=== PATIENT | male | born 1970 | race African-American/Black ===

== ENCOUNTER 2020-08-13 20:34 | Emergency (ER) | payer BC ==
--- OUTSIDE RECORDS SUMMARY | 2020-08-13 20:37 | XMS REPORT | Continuity of Care Document ---
:1970 Author Organization [facility] t Address [address] [place] [address] Care Team Providers Name Role Phone Therapy, Covid Infusion Attending Clinician Unavailable Doctor Unassigned, Name Attending Clinician Unavailable Problems This patient has no known problems. Allergies, Adverse Reactions, Alerts This patient has no known allergies or adverse reactions. Medications This patient has no known medications. Procedures This patient has no known procedures. Encounters Start End Encounter Admission Attending Care Care Encounter Source Date/Time Date/Time Type Type Clinicians Facility Department ID 2020-08-07 2020-08-07 Outpatient [facility] [id number] [facility] 00:00:00 00:00:00 [facility]akesh [facility]ph[facility] 2020-03-15 2020-03-15 Nurse Therapy, [facility] [id number] 09:44:59 18:56:55 Visit [facility] Covid SPECIALTY [id number] Infusion CARE [id number] CENTER AT [id number] [place] [address] [place] [address] 2020-03-15 2020-03-15 Orders Doctor DARRIAN [id number] 00:00:00 00:00:00 Only Unassigned, JUAN JOSE [id number] [place] [facility] [id number] Results This patient has no known results.
[2020-08-13 21:20] LABS: Urine Blood 2+ (Negative); Urine Glucose 1+ (Negative); Urine Protein 1+ (Negative); Urine Specific Gravity 1.015 (1.005-1.030)
[2020-08-13 21:48] LABS: Urine Bacteria >50 /HPF (NONE SEEN); Urine RBC <5 /HPF (NONE SEEN)
[2020-08-13 22:14] LABS: Absolute Lymphocytes (CBC) 3.4 K/uL (0.7-4.9); Basophils % 0.2 % (0-1.3); Hematocrit 40.2 % (39.6-49.0); Lymphocytes % 32.2 % (15.3-44.8); MPV 9.7 fL (7.6-11.3); RBC Red Blood Cell Count 4.62 M/uL (4.33-5.43)
[2020-08-13 22:18] LABS: Protime INR 1.05
[2020-08-13 22:26] LABS: ALT/SGPT 60 U/L (12-78); AST/SGOT 25 U/L (15-37); Alkaline Phosphatase 73 U/L (45-117); BUN Blood Urea Nitrogen 16 mg/dL (7-18); Bicarbonate 24 mmol/L (21-32); Bilirubin Direct 0.2 mg/dL (0-0.2); Bilirubin Total 0.7 mg/dL (0.2-1.0); Glucose Level 400 mg/dL (74-106); Potassium 3.5 mmol/L (3.5-5.1); Protein, Total 8.5 g/dL (6.4-8.2); Sodium Level 132 mmol/L (136-145)
[2020-08-13] MEDS ORDERED: ONDANSETRON 4 MG/2 ML VIAL ONE (22:33)
[2020-08-13] MEDS ORDERED: MORPHINE 4 MG/ML SYR ONE (22:33)
--- NOTE | 2020-08-14 00:37 | EDPHYS ---
Physician Documentation [facility] Name: Dean Rosenthal Age: 50 yrs Sex: Male : 1970 Arrival Date: 08/13/2020 Time: 20:36 Bed 20 Private MD: ED Physician Jeramy Delaney HPI: 08/13 21:42 This 50 yrs old Black Male presents to ER via Ambulatory with complaints of Scrotum pm1 pain, Boil. 21:42 The patient presents with scrotal pain, of the right side. Onset: The symptoms/episode pm1 began/occurred Patient reports boil present to groin area for the past two weeks, today reports scrotal pain and swelling. Modifying factors: The symptoms are alleviated by nothing, the symptoms are aggravated by pressure. Associated signs and symptoms: Pertinent positives: dysuria, Pertinent negatives: abdominal pain, fever. Severity of symptoms: in the emergency department the symptoms are actually worse. Patient was seen by his PCP 1 week ago for the same complaint and was prescribed clindamycin. Patient reports boil present to right groin area had some discharge today. Historical: - Allergies: 20:52 No Known Allergies; ad5 - PMHx: 20:52 Diabetes - NIDDM; High Cholesterol; GERD; Arthritis; Hypertension; ad5 - Immunization history:: Adult Immunizations up to date. - Social history:: Smoking status: unknown. ROS: 21:42 Constitutional: Negative for fever, chills, and weight loss, Cardiovascular: Negative pm1 for chest pain, palpitations, and edema, Respiratory: Negative for shortness of breath, cough, wheezing, and pleuritic chest pain, Abdomen/GI: Negative for abdominal pain, nausea, vomiting, diarrhea, and constipation. 21:42 MS/Extremity: Negative for injury and deformity. 21:42 : Positive for urinary symptoms, right scrotal pain. 21:42 Skin: Positive for abscess, of the groin. 21:42 All other systems are negative. Exam: 21:49 Constitutional: This is a well developed, well nourished patient who is awake, alert, pm1 and in no acute distress. Head/Face: Normocephalic, atraumatic. 21:49 Back: No spinal tenderness. No costovertebral tenderness. Full range of motion. 21:49 Eyes: Exam is negative for acute changes, Extraocular movements: intact throughout, Conjunctiva: no acute changes, no injection. 21:49 ENT: Mouth: Lips: normal, Oral mucosa: normal, pink and intact, moist. 21:49 Cardiovascular: Rate: normal, Rhythm: regular, Pulses: no pulse deficits are appreciated, Edema: is not appreciated. 21:49 Respiratory: Exam negative for acute changes, respiratory distress, shortness of breath. 21:49 Abdomen/GI: Inspection: obese Palpation: abdomen is soft and non-tender, in all quadrants. 21:49 : Male external genitalia: swelling, scrotal, that is mild, right side, tenderness, of the scrotum right side is noted. 21:49 Skin: Appearance: normal except for affected area, cellulitis, on the right perineal area. Small 1 cm ruptured boil without any fluctuance or drainage present. Tenderness with palpation along right perineal area. 21:49 Neuro: Exam negative for acute changes, Orientation: is normal, Mentation: is normal, Motor: is normal, moves all fours, Sensation: is normal, no obvious gross deficits. Vital Signs: 20:48 BP 115 / 66; Pulse 103; Resp 20 S; Temp 98.4; Pulse Ox 98% on R/A; Weight 124.74 kg; ad5 Height 5 ft. 11 in. (180.34 cm); 22:47 BP 120 / 70; Pulse 98; Resp 18; Pulse Ox 98% on R/A; ea 08/14 00:00 BP 127 / 67; Pulse 78; Resp 18; Pulse Ox 98% ; ea 01:00 BP 121 / 67; Pulse 82; Resp 18; Pulse Ox 99% ; ea 02:07 BP 112 / 61; Pulse 90; Resp 18; Pulse Ox 98% ; ea 08/13 20:48 Body Mass Index 38.35 (124.74 kg, 180.34 cm) ad5 MDM: 08/13 21:42 Patient medically screened. pm1 08/14 00:47 Data reviewed: vital signs. Data interpreted: Pulse oximetry: on room air is 98 %. pm1 Interpretation: normal. 01:33 Physician consultation: MD Baron regarding regarding transfer, patient's condition, pm1 and will see patient. 01:45 Physician consultation: MD Hansen regarding consult, patient's condition, and will see pm1 patient. 02:26 ED course: No clotrimazole topical available to treat suspected balanitis. pm1 08/13 21:19 Order name: Urine Culture 5 08/13 21:19 Order name: Urine Microscopic Only; Complete Time: 23:45 rr5 08/13 21:20 Order name: Urine Dipstick-Ancillary; Complete Time: 21:43 EDMS 08/13 21:45 Order name: Basic Metabolic Panel pm1 08/13 21:45 Order name: Blood Culture Adult (2) pm1 08/13 21:45 Order name: CBC with Diff pm1 08/13 21:45 Order name: Lactate; Complete Time: 23:45 pm1 08/13 21:45 Order name: LFT's; Complete Time: 23:45 pm1 08/13 21:45 Order name: Procalcitonin; Complete Time: 23:45 pm1 08/13 21:45 Order name: Protime (+inr); Complete Time: 23:45 pm1 08/13 21:45 Order name: Ptt, Activated; Complete Time: 23:45 pm1 08/13 21:46 Order name: Basic Metabolic Panel; Complete Time: 23:45 EDMS 08/13 21:46 Order name: Blood Culture EDMS 08/13 21:46 Order name: CBC with Automated Diff; Complete Time: 23:45 EDMS 08/13 20:59 Order name: Urine Dipstick-Ancillary (obtain specimen); Complete Time: 21:19 [facility] 08/13 21:45 Order name: CT Abd/Pelvis - IV Contrast Only pm1 08/13 21:45 Order name: Labs collected and sent; Complete Time: 22:01 pm1 08/13 21:46 Order name: US Scrotum Testicles pm1 08/14 02:03 Order name: SARS-COV-2 RT PCR; Complete Time: 02:03 EDMS Administered Medications: 08/13 22:22 Drug: morphine 4 mg Route: IVP; Site: right antecubital; ea 22:22 Drug: Zofran (Ondansetron) 4 mg Route: IVP; Site: right antecubital; ea 08/14 01:00 Drug: Cefepime 1 grams Route: IVPB; Rate: 200 ml/hr; Infused Over: 30 mins; Site: right rr5 antecubital; 01:00 Drug: NS 0.9% 1000 ml Route: IV; Rate: 1000 ml; Site: right antecubital; rr5 01:00 Drug: Insulin Regular Human 10 units {Co-Signature: jose (Olegario Disla RN).} Route: rr5 IVP; Site: right antecubital; 01:16 Drug: vancoMYCIN 1 grams Route: IVPB; Infused Over: 2 hrs; Site: right antecubital; rr5 01:29 Drug: morphine 4 mg Route: IVP; Site: right antecubital; ea Disposition: 03:21 Co-signature as Attending Physician, Jeramy Delaney MD. mh7 Disposition: 08/14/20 00:37 Transfer ordered to Other Acute Care Facility. Diagnosis are Cellulitis of perineum, Failed outpatient antibiotic therapy, UTI/ Urinary tract infection, site not specified. - Reason for transfer: Higher level of care. - Accepting physician is Loraine WEST. - Condition is Stable. - Problem is new. - Symptoms have improved. Signatures: Dispatcher [employer] EDMS Harsh Olguin NP [employer] pm1 Jyothi Gonzalez RN RN ea Roque, Raymond, RN RN 5 Jeramy Delaney MD MD 7 Anthony Jorgensen RN jm8 Corrections: (The following items were deleted from the chart) 00:36 06/ 21:42 Patient reports boil present to right groin area had some discharge pm1 yesterday. pm1 08/14 00:48 00:37 08/14/2020 00:[address] [facility]. pm1 Diagnosis is Cellulitis of perineum. Reason for transfer: Higher level of care. Accepting physician is . Condition is Stable. Problem is new. Symptoms have improved. pm1 01:11 00:47 CORONAVIRUS+MR.LAB.BRZ ordered. EDNH EDMS 02:07 01:33 Physician consultation: MD Madrigal regarding regarding transfer, patient's pm1 condition, and will see patient pm1 02:07 00:48 08/14/2020 00:[address] [facility]. pm1 Diagnosis is Cellulitis of perineum; Failed outpatient therapy. Reason for transfer: Higher level of care. Accepting physician is . Condition is Stable. Problem is new. Symptoms have improved. pm1 02:21 02:07 08/14/2020 00:37 Transfer ordered to Other Acute Care Facility. Diagnosis is pm1 Cellulitis of perineum; Failed outpatient therapy. Reason for transfer: Higher level of care. Accepting physician is Loraine WEST. Condition is Stable. Problem is new. Symptoms have improved. pm1 02:21 02:21 08/14/2020 00:37 Transfer ordered to Other Acute Care Facility. Diagnosis is pm1 Cellulitis of perineum; Failed outpatient therapy; Urinary tract infection, site not specified. Reason for transfer: Higher level of care. Accepting physician is Loraine WEST. Condition is Stable. Problem is new. Symptoms have improved. pm1 02:41 02:21 08/14/2020 00:37 Transfer ordered to Other Acute Care Facility. Diagnosis is ea Cellulitis of perineum; Failed outpatient antibiotic therapy; Urinary tract infection, site not specified. Reason for transfer: Higher level of care. Accepting physician is Loraine WEST. Condition is Stable. Problem is new. Symptoms have improved. pm1
--- NOTE | 2020-08-14 00:37 | ER ---
Nurse's Notes [facility] Name: Dean Rosenthal Age: 50 yrs Sex: Male : 1970 Arrival Date: 08/13/2020 Time: 20:36 Bed 20 Private MD: Diagnosis: Cellulitis of perineum;Failed outpatient antibiotic therapy;UTI/ Urinary tract infection, site not specified Presentation: 08/13 20:48 Chief complaint: Patient states: Pt reports R groin pain, edema since this am. Pt ad5 states "boils" to area with rupture of one today, states bloody discharge. Pt also reports urinary frequency, dysuria. States seen by [facility] [employer] INSTALLER this past week and prescribed unk antibiotic for "boils" with no relief of s/s. Coronavirus screen: At this time, the client does not indicate any symptoms associated with coronavirus-19. Ebola Screen: No symptoms or risks identified at this time. Initial Sepsis Screen: Does the patient meet any 2 criteria? HR > 90 bpm. Does the patient have a suspected source of infection? No. Patient's initial sepsis screen is negative. Risk Assessment: Do you want to hurt yourself or someone else? Patient reports no desire to harm self or others. Onset of symptoms was August 13, 2020. 20:48 Method Of Arrival: Ambulatory ad5 20:48 Acuity: DIANNA 3 ad5 Triage Assessment: 20:53 General: Appears uncomfortable, Behavior is calm, cooperative, appropriate for age. ad5 Historical: - Allergies: 20:52 No Known Allergies; ad5 - PMHx: 20:52 Diabetes - NIDDM; High Cholesterol; GERD; Arthritis; Hypertension; ad5 - Immunization history:: Adult Immunizations up to date. - Social history:: Smoking status: unknown. Screenin:37 Abuse screen: Denies threats or abuse. Nutritional screening: No deficits noted. ea Tuberculosis screening: No symptoms or risk factors identified. Fall Risk None identified. Assessment: 21:40 General: Appears uncomfortable, Behavior is appropriate for age. Pain: Complains of ea pain in pelvis. Neuro: Level of Consciousness is awake, alert, obeys commands, Oriented to person, place, time. Cardiovascular: Patient's skin is warm and dry. Derm: Skin is pink, warm \\T\\ dry. 08/14 00:00 Reassessment: Patient and/or family updated on plan of care and expected duration. Pain ea level reassessed. Patient is alert, oriented x 3, equal unlabored respirations, skin warm/dry/pink. 01:00 Reassessment: Patient and/or family updated on plan of care and expected duration. Pain ea level reassessed. Patient is alert, oriented x 3, equal unlabored respirations, skin warm/dry/pink. 02:21 Reassessment: Report given to Annette HOOD at [facility]. ea 02:40 Reassessment: Patient and/or family updated on plan of care and expected duration. Pain ea level reassessed. Patient is alert, oriented x 3, equal unlabored respirations, skin warm/dry/pink. Report given to [facility] ambulance. Pt left ED via stretcher per EMS. Pt tolerating well. Vital Signs: 08/13 20:48 BP 115 / 66; Pulse 103; Resp 20 S; Temp 98.4; Pulse Ox 98% on R/A; Weight 124.74 kg; ad5 Height 5 ft. 11 in. (180.34 cm); 22:47 BP 120 / 70; Pulse 98; Resp 18; Pulse Ox 98% on R/A; ea 08/14 00:00 BP 127 / 67; Pulse 78; Resp 18; Pulse Ox 98% ; ea 01:00 BP 121 / 67; Pulse 82; Resp 18; Pulse Ox 99% ; ea 02:07 BP 112 / 61; Pulse 90; Resp 18; Pulse Ox 98% ; ea 08/13 20:48 Body Mass Index 38.35 (124.74 kg, 180.34 cm) ad5 ED Course: 08/13 20:36 Patient arrived in ED. es 20:50 Triage completed. ad5 21:29 Arm band placed on. ad5 21:32 Jyothi Gonzalez, SANA is Primary Nurse. ea 21:35 Harsh Olguin NP is PHCP. pm1 21:35 Jeramy Delaney MD is Attending Physician. pm1 21:37 Patient has correct armband on for positive identification. Bed in low position. Call ea light in reach. 21:47 Initial lab(s) drawn, by me, sent to lab. Inserted saline lock: 20 gauge in right ca1 antecubital area, using aseptic technique. Blood collected. 21:56 First set of blood cultures drawn by me. ca1 23:17 CT Abd/Pelvis - IV Contrast Only In Process Unspecified. EDMS 08/14 00:29 US Scrotum Testicles In Process Unspecified. EDMS 00:44 initiated a transfer with Dena Sky from [facility]. mw2 01:19 connected Harsh Olguin NP with Dr. Martinez from [facility]. mw2 02:00 No provider procedures requiring assistance completed. Patient transferred, IV remains ea in place. 02:01 administrative approval given by Dena Sky/ patient has been accepted to [address] 5th floor A504/ Dr. Baron accepted the patient in transfer/ report to be called to [phone]. Administered Medications: 08/13 22:22 Drug: morphine 4 mg Route: IVP; Site: right antecubital; ea 22:22 Drug: Zofran (Ondansetron) 4 mg Route: IVP; Site: right antecubital; ea 08/14 01:00 Drug: Cefepime 1 grams Route: IVPB; Rate: 200 ml/hr; Infused Over: 30 mins; Site: right rr5 antecubital; 01:00 Drug: NS 0.9% 1000 ml Route: IV; Rate: 1000 ml; Site: right antecubital; rr5 01:00 Drug: Insulin Regular Human 10 units {Co-Signature: jose (Olegario Disla RN).} Route: rr5 IVP; Site: right antecubital; 01:16 Drug: vancoMYCIN 1 grams Route: IVPB; Infused Over: 2 hrs; Site: right antecubital; rr5 01:29 Drug: morphine 4 mg Route: IVP; Site: right antecubital; ea Outcome: 00:37 ER care complete, transfer ordered by MD. pm1 02:00 Instructed on the need for transfer, Demonstrated understanding of instructions. ea 02:40 Transferred by ground EMS to [facility], Transfer form completed. ea 02:40 Condition: stable 02:41 Patient left the ED. ea Signatures: Dispatcher [employer] Loan Lorenzo Patrick, NP [employer] INST[employer]ER pm1 Jyothi Gonzalez RN RN ea Tommy Ordoñez mw2 Yousif Bobby RN RN rr5 Marleni Lopez RN RN ca1 Jameel Anthony ad5 Olegario Disla RN jm8 Corrections: (The following items were deleted from the chart) 08/13 20:53 20:48 Chief complaint: Patient states: Pt reports R groin pain, edema since this am. Pt ad5 states "boils" to area with rupture of one today, states bloody discharge. Pt also reports urinary frequency, dysuria. ad5
[2020-08-14] MEDS ORDERED: NA CHLORIDE 0.9% 250 ML ONE (00:40)
[2020-08-14] MEDS ORDERED: VANCOMYCIN 1 GM/VIAL ONE (00:40)
[2020-08-14] MEDS ORDERED: CEFEPIME/SWI 1gm 10 ML ONE (00:40)
[2020-08-14] MEDS ORDERED: NA CHLORIDE 0.9% 1,000 ML ONE (01:23)
[2020-08-14] MEDS ORDERED: INSULIN -REGULAR HUMAN 50 UNIT/0.5 ML ML ONE (01:26)
[2020-08-14] MEDS ORDERED: MORPHINE 4 MG/ML SYR ONE (01:36)
[2020-08-14 02:48] VITALS: TEMP 98.4
[2020-08-14 02:54] VITALS: BP 112/61; O2SAT 98
--- NOTE | 2020-08-14 08:52 | RAD REPORT ---
EXAM DESCRIPTION: US - Scrotum Testicles - 08/14/2020 12:30 am CLINICAL HISTORY: rule out torsion Pain and swelling right side of groin COMPARISON: No comparisons FINDINGS: The right testicle 4.6 x 3.7 x 2.4 cm. No intratesticular masses or evidence of testicular torsion. The left testicle 3.8 x 3.2 x 2.1 cm. No intratesticular masses or evidence of testicular torsion. Both epididymides are normal in size and appearance. No pathologic fluid collections. Mildly prominent right groin vessel seen. IMPRESSION: No testicular torsion or testicular mass evident.
--- NOTE | 2020-08-14 13:54 | RAD REPORT ---
EXAM DESCRIPTION: perineal abscess COMPARISON: None. TECHNIQUE: CT ABDOMEN PELVIS WITH IV CONTRAST on 08/13/2020 9:45 PM CDT This exam was performed according to our departmental dose-optimization program, which includes autom ated exposure control, adjustment of the mA and/or kV according to patient size and/or use of iterati ve reconstruction technique. FINDINGS: Lower lungs are clear. Abdomen: Liver is enlarged and fatty in attenuation. There is no biliary dilatation. Gallbladder is n ormal in appearance. The pancreas and spleen are normal in appearance. The adrenal glands and kidneys are unremarkable. Abdominal aorta is normal in course and caliber without aneurysm. There is no free air. There is no r etroperitoneal adenopathy. There is a moderate fat-containing right periumbilical abdominal wall salvatore ia. Pelvis: There is mild diverticulosis of the distal colon. Urinary bladder is unremarkable. There is n o free fluid. Appendix is normal. There is edema within the perineum bilaterally, more so on the righ t. There is no focal drainable fluid collection. Skeleton: There are no acute osseous findings. No suspicious bony lesions. IMPRESSION: Inflammatory changes within the perineum without definite drainable abscess. Electronically signed by: Jayant Pickett MD 08/13/2020 11:38 PM CDT Due to temporary technical issues with the PACS/Fluency reporting system, reports are being signed by the in house radiologist without review as a courtesy to ensure prompt reporting. The interpreting r adiologist is fully responsible for the content of the report.
== END 2020-08-14 02:41 ==
LOC: ER 20:34
DX: L03.315 Cellulitis of perineum (principal); N39.0 Urinary tract infection, site not specified; I10 Essential (primary) hypertension; Z20.822 Contact with and (suspected) exposure to COVID-19
CPT/HCPCS: 87040 ×2; 87088; 85025; 87086; 80048; 36415; 85610; 80076; 83605; 85730; 84145; 74177; 76870; U0003; Q9967; J3370; J0692; J7050; J7030; J2405; 81003; 81015; 87077; 87186; 96374; 96375; 99285

== ENCOUNTER 2021-08-25 01:55 | Inpatient (IN) | payer BC ==
[2021-08-25 02:21] LABS: Urine Blood 1+ (Negative); Urine Glucose 2+ (Negative); Urine Protein Trace (Negative); Urine pH 5.5 (5.0-7.0)
[2021-08-25 02:30] LABS: Absolute Lymphocytes (CBC) 4.5 K/uL (0.7-4.9); Hematocrit 43.1 % (39.6-49.0); Lymphocytes % 53.8 % (15.3-44.8); MCV 87.4 fL (80-100); MPV 7.5 fL (7.6-11.3); RBC Red Blood Cell Count 4.93 M/uL (4.33-5.43)
[2021-08-25] MEDS ORDERED: ONDANSETRON 4 MG/2 ML VIAL ONE ×3 (02:30→16:31)
[2021-08-25] MEDS ORDERED: NA CHLORIDE 0.9% 1,000 ML ONE ×3 (02:30→12:13)
[2021-08-25] MEDS ORDERED: MORPHINE 4 MG/ML SYR ONE ×2 (02:32→03:27)
[2021-08-25 02:33] LABS: Protime INR 1.04
[2021-08-25] MEDS ORDERED: FENTANYL CITR 100 MCG/2 ML ONE (02:40)
[2021-08-25 02:59] LABS: Albumin 4.3 g/dL (3.4-5.0); Bilirubin Direct 0.1 mg/dL (0-0.2); Bilirubin Total 0.4 mg/dL (0.2-1.0); Potassium 4.2 mmol/L (3.5-5.1); Protein, Total 8.7 g/dL (6.4-8.2); Troponin High Sensitivity 35.1 pg/mL (<58.9)
[2021-08-25] MEDS ORDERED: PIPERACIL/TAZO 3.375 GM VIAL IV ONE ×3 (03:28→16:31)
[2021-08-25] MEDS ORDERED: NA CHLORIDE 0.9% 100 ML ONE ×3 (03:28→16:31)
[2021-08-25] MEDS ORDERED: FAMOTIDINE 20 MG/2 ML VIAL IV ONE (03:51)
--- NOTE | 2021-08-25 05:18 | ER ---
Nurse's Notes [facility] Name: Dean Rosenthal Age: 51 yrs Sex: Male : 1970 Arrival Date: 08/25/2021 Time: 01:58 Bed 19 Private MD: Diagnosis: Abdominal tenderness;Nausea;Diarrhea, unspecified;Ileus, unspecified;Coronavirus infection, unspecified;SARS-associated coronavirus as the cause of diseases classified elsewhere Presentation: 08/25 02:26 Chief complaint: Patient states: abd pain and vomiting for 2 weeks. seen by pcp for sm5 hematuria and told he has a prostate infection, taking bactrim currently. Coronavirus screen: Vaccine status: Patient reports receiving the 2nd dose of the covid vaccine. Ebola Screen: No symptoms or risks identified at this time. Initial Sepsis Screen: Does the patient meet any 2 criteria? HR > 90 bpm. Does the patient have a suspected source of infection? Yes: Acute abdominal pain. Risk Assessment: Do you want to hurt yourself or someone else? Patient reports no desire to harm self or others. Onset of symptoms was August 25, 2021. 02:26 Method Of Arrival: Wheelchair [facility] 02:26 Acuity: DIANNA 3 5 Triage Assessment: 02:28 General: Appears uncomfortable, Behavior is cooperative. Pain: Complains of pain in sm5 abdomen. Neuro: Level of Consciousness is awake, alert, obeys commands, Oriented to person, place, time, situation. Cardiovascular: Capillary refill < 3 seconds Patient's skin is warm and dry. Respiratory: Airway is patent Trachea midline Respiratory effort is even, unlabored. GI: Abdomen is round obese, Reports intolerance of fluids, intolerance of food, nausea, vomiting. Historical: - Allergies: 02:27 No Known Allergies; sm5 - PMHx: 02:27 Arthritis; Diabetes - NIDDM; GERD; High Cholesterol; Hypertension; sm5 - Immunization history:: Client reports receiving the 2nd dose of the Covid vaccine. - Social history:: Smoking status: Reported history of juuling and/or vaping. - Family history:: not pertinent. Screenin:29 Abuse screen: Denies threats or abuse. Denies injuries from another. Nutritional 5 screening: Has had N/V for 3 or more days. Nutritional screening: Intervention for positive screen: ED Physician notified. Tuberculosis screening: No symptoms or risk factors identified. Fall Risk None identified. Assessment: 02:30 Reassessment: see triage assessment. 5 03:30 Reassessment: No changes from previously documented assessment. Patient and/or family sm5 updated on plan of care and expected duration. Pain level reassessed. 04:17 Reassessment: Patient and/or family updated on plan of care and expected duration. Pain sm5 level reassessed. Patient is alert, oriented x 3, equal unlabored respirations, skin warm/dry/pink. 22:10 GI: lg3 Vital Signs: 02:26 BP 104 / 72; Pulse 94; Resp 20; Temp 97.3(TE); Pulse Ox 96% on R/A; Weight 135.62 kg; 5 Height 5 ft. 11 in. (180.34 cm); Pain 10/10; 04:15 BP 120 / 78; Pulse 73; Resp 16; Pulse Ox 96% on R/A; sm5 02:26 Body Mass Index 41.70 (135.62 kg, 180.34 cm) 5 ED Course: 01:58 Patient arrived in ED. bp1 02:06 Ruben Duarte MD is Attending Physician. og 02:07 Jewell Schreiber, SANA is Primary Nurse. sm5 02:27 Triage completed. sm5 02:28 Arm band placed on right wrist. sm5 02:29 Patient has correct armband on for positive identification. Bed in low position. Call 5 light in reach. Side rails up X2. 02:47 Inserted saline lock: 20 gauge in right antecubital area, using aseptic technique. 5 Blood collected. 02:47 Basic Metabolic Panel Sent. sm5 02:47 LFT's Sent. sm5 02:47 Magnesium Sent. sm5 02:47 NT PRO-BNP Sent. sm5 02:47 Troponin HS Sent. sm5 02:47 Lipase Sent. sm5 02:53 XRAY Chest (1 view) In Process Unspecified. EDMS 03:45 Lactate Sent. sm5 04:02 CT Abd/Pelvis - IV Contrast Only In Process Unspecified. EDMS 05:14 Asaf Leo MD is Hospitalizing Provider. og 05:20 Solis Kenney MD is Hospitalizing Provider. og 07:11 Primary Nurse role handed off by Jewell Schreiber, RN tw2 07:11 Shauna Yates, RN is Primary Nurse. tw2 22:10 No provider procedures requiring assistance completed. Patient admitted, IV remains in lg3 place. intact, No redness/swelling at site. Administered Medications: 02:38 Drug: NS 0.9% 1000 ml Route: IV; Rate: 1 bolus; Site: right antecubital; sm5 03:41 Follow up: IV Status: Completed infusion; IV Intake: 1000ml sm5 02:38 Drug: Zofran (Ondansetron) 4 mg Route: IVP; Site: right antecubital; sm5 03:42 Follow up: Response: No adverse reaction sm5 02:38 Drug: fentaNYL (PF) 25 mcg Route: IVP; Site: right antecubital; sm5 03:42 Follow up: Response: No adverse reaction sm5 03:41 Drug: Zosyn (piperacillin-tazobactam) 3.375 grams Route: IVPB; Infused Over: 60 mins; sm5 Site: right antecubital; 04:45 Follow up: IV Status: Completed infusion; IV Intake: 100ml sm5 03:41 Drug: morphine 4 mg Route: IVP; Infused Over: 4 mins; Site: right antecubital; sm5 04:15 Follow up: Response: No adverse reaction sm5 03:41 Drug: NS 0.9% 1000 ml Route: IV; Rate: 125 ml/hr; Site: right antecubital; sm5 04:10 Drug: Pepcid (famotidine) 20 mg Route: IVP; Site: right antecubital; sm5 05:26 Follow up: Response: No adverse reaction 5 Medication: 22:11 VIS not applicable for this client. lg3 Intake: 03:41 IV: 1000ml; Total: 1000ml. sm5 04:45 IV: 100ml; Total: 1100ml. sm5 Outcome: 05:17 Decision to Hospitalize by Provider. og 22:11 Admitted to Tele accompanied by [facility], room 423. lg3 22:11 Patient left the ED. lg3 Signatures: Dispatcher [employer] EDMS Ruben Duarte MD MD cha Wise, Tara, SANA HOOD tw2 Carley Moy RN RN lg3 Nely Jacobson Sarah, RN RN 5
--- NOTE | 2021-08-25 05:19 | EDPHYS ---
Physician Documentation [facility] Name: Dean Rosenthal Age: 51 yrs Sex: Male : 1970 Arrival Date: 08/25/2021 Time: 01:58 Bed 19 Private MD: LITA Physician Ruben Duarte HPI: 08/25 03:16 This 51 yrs old Black Male presents to ER via Wheelchair with complaints of Abdominal og Pain, Vomiting. 03:16 The patient presents to the emergency department with nausea, vomiting, diarrhea, og abdominal pain, of the right upper quadrant, left upper quadrant and left lower quadrant. Onset: The symptoms/episode began/occurred 2 week(s) ago. Possible causes: unknown. The symptoms are aggravated by movement, pressure, The symptoms are alleviated by nothing. Associated signs and symptoms: Pertinent positives: abdominal pain, diarrhea, nausea, vomiting. Severity of symptoms: At their worst the symptoms were mild in the emergency department the symptoms are unchanged. The patient has not experienced similar symptoms in the past. Historical: - Allergies: 02:27 No Known Allergies; sm5 - PMHx: 02:27 Arthritis; Diabetes - NIDDM; GERD; High Cholesterol; Hypertension; sm5 - Immunization history:: Client reports receiving the 2nd dose of the Covid vaccine. - Social history:: Smoking status: Reported history of juuling and/or vaping. - Family history:: not pertinent. ROS: 03:16 Constitutional: Negative for fever, chills, and weight loss, Eyes: Negative for injury, og pain, redness, and discharge, ENT: Negative for injury, pain, and discharge, Neck: Negative for injury, pain, and swelling, Cardiovascular: Negative for chest pain, palpitations, and edema, Respiratory: Negative for shortness of breath, cough, wheezing, and pleuritic chest pain, Back: Negative for injury and pain, : Negative for injury, bleeding, discharge, and swelling, MS/Extremity: Negative for injury and deformity, Skin: Negative for injury, rash, and discoloration, Neuro: Negative for headache, weakness, numbness, tingling, and seizure, Psych: Negative for depression, anxiety, suicide ideation, homicidal ideation, and hallucinations, Allergy/Immunology: Negative for hives, rash, and allergies, Endocrine: Negative for neck swelling, polydipsia, polyuria, polyphagia, and marked weight changes, Hematologic/Lymphatic: Negative for swollen nodes, abnormal bleeding, and unusual bruising. 03:16 Abdomen/GI: Positive for abdominal pain, nausea and vomiting, diarrhea. Exam: 03:16 Constitutional: This is a well developed, well nourished patient who is awake, alert, og and in no acute distress. Head/Face: Normocephalic, atraumatic. Eyes: Pupils equal round and reactive to light, extra-ocular motions intact. Lids and lashes normal. Conjunctiva and sclera are non-icteric and not injected. Cornea within normal limits. Periorbital areas with no swelling, redness, or edema. ENT: Nares patent. No nasal discharge, no septal abnormalities noted. Tympanic membranes are normal and external auditory canals are clear. Oropharynx with no redness, swelling, or masses, exudates, or evidence of obstruction, uvula midline. Mucous membranes moist. Neck: Trachea midline, no thyromegaly or masses palpated, and no cervical lymphadenopathy. Supple, full range of motion without nuchal rigidity, or vertebral point tenderness. No Meningismus. Chest/axilla: Normal chest wall appearance and motion. Nontender with no deformity. No lesions are appreciated. Cardiovascular: Regular rate and rhythm with a normal S1 and S2. No gallops, murmurs, or rubs. Normal PMI, no JVD. No pulse deficits. Respiratory: Lungs have equal breath sounds bilaterally, clear to auscultation and percussion. No rales, rhonchi or wheezes noted. No increased work of breathing, no retractions or nasal flaring. Back: No spinal tenderness. No costovertebral tenderness. Full range of motion. Male : Normal genitalia with no discharge or lesions. Skin: Warm, dry with normal turgor. Normal color with no rashes, no lesions, and no evidence of cellulitis. MS/ Extremity: Pulses equal, no cyanosis. Neurovascular intact. Full, normal range of motion. Neuro: Awake and alert, GCS 15, oriented to person, place, time, and situation. Cranial nerves II-XII grossly intact. Motor strength 5/5 in all extremities. Sensory grossly intact. Cerebellar exam normal. Normal gait. Psych: Awake, alert, with orientation to person, place and time. Behavior, mood, and affect are within normal limits. 03:16 ECG was reviewed by the Attending Physician. 03:16 Abdomen/GI: Inspection: distension, Bowel sounds: normal, Palpation: moderate abdominal tenderness, in the right upper quadrant, left upper quadrant and left lower quadrant, Liver: no appreciated palpable abnormalities, Hernia: not appreciated. Vital Signs: 02:26 BP 104 / 72; Pulse 94; Resp 20; Temp 97.3(TE); Pulse Ox 96% on R/A; Weight 135.62 kg; 5 Height 5 ft. 11 in. (180.34 cm); Pain 10/10; 04:15 BP 120 / 78; Pulse 73; Resp 16; Pulse Ox 96% on R/A; 5 02:26 Body Mass Index 41.70 (135.62 kg, 180.34 cm) [facility] MDM: 02:06 Patient medically screened. [facility] 03:22 Differential diagnosis: Nonspecific abd pain, gastritis, cholecystitis, pancreatitis, og appendicitis, diverticulitis, viral gastroenteritis, gastroenteritis. Data reviewed: vital signs, lab test result(s), EKG, radiologic studies. Data interpreted: cardiac monitor: rate is 94 beats/min, rhythm is regular, Pulse oximetry: on room air is 96 %. Test interpretation: by ED physician or midlevel provider: ECG, plain radiologic studies. Counseling: I had a detailed discussion with the patient and/or guardian regarding: the historical points, exam findings, and any diagnostic results supporting the discharge/admit diagnosis, lab results, radiology results. 08/25 02:07 Order name: Basic Metabolic Panel; Complete Time: 03:13 og 08/25 02:07 Order name: CBC with Diff; Complete Time: 03:13 og 08/25 02:07 Order name: LFT's; Complete Time: 03:13 og 08/25 02:07 Order name: Magnesium; Complete Time: 03:13 og 08/25 02:07 Order name: NT PRO-BNP; Complete Time: 03:13 og 08/25 02:07 Order name: PT-INR; Complete Time: 03:13 og 08/25 02:07 Order name: Troponin HS; Complete Time: 03:13 og 08/25 02:07 Order name: Lipase; Complete Time: 03:13 og 08/25 02:21 Order name: Urine Dipstick-Ancillary; Complete Time: 03:13 EDMS 08/25 03:16 Order name: Lactate; Complete Time: 05:13 [facility] 08/25 05:23 Order name: COVID-19 SARS RT PCR (Document "Date of Onset" if Symptomatic): admitted; [facility] Complete Time: 07:13 08/25 07:49 Order name: Glucose, Ancillary Testing; Complete Time: 15:36 EDFL 08/25 12:16 Order name: Glucose, Ancillary Testing; Complete Time: 15:36 EDFL 08/25 16:44 Order name: Glucose, Ancillary Testing EDFL 08/25 02:07 Order name: XRAY Chest (1 view); Complete Time: 15:36 [facility] 08/25 02:07 Order name: EKG; Complete Time: 02:08 [facility] 08/25 02:07 Order name: Cardiac monitoring; Complete Time: 02:26 [facility] 08/25 02:07 Order name: EKG - Nurse/Tech; Complete Time: 02:47 [facility] 08/25 02:07 Order name: IV Saline Lock; Complete Time: 02:26 [facility] 08/25 02:07 Order name: Labs collected and sent; Complete Time: 02:26 [facility] 08/25 02:07 Order name: O2 Per Protocol; Complete Time: 02:26 [facility] 08/25 02:07 Order name: O2 Sat Monitoring; Complete Time: 02:26 [facility] 08/25 03:16 Order name: CT Abd/Pelvis - IV Contrast Only; Complete Time: 15:36 [facility] 08/25 02:07 Order name: Urine Dipstick-Ancillary (obtain specimen); Complete Time: 02:38 og EC:16 Rate is 82 beats/min. Rhythm is regular. QRS [place] is Normal. [place] interval is normal. QRS og interval is normal. QT interval is normal. No Q waves. T waves are Normal. No ST changes noted. Clinical impression: NSR w/ Non-specific ST/T Changes and No evidence of ischemia. Interpreted by me. Reviewed by me. Administered Medications: 02:38 Drug: NS 0.9% 1000 ml Route: IV; Rate: 1 bolus; Site: right antecubital; 5 03:41 Follow up: IV Status: Completed infusion; IV Intake: 1000ml [facility] 02:38 Drug: Zofran (Ondansetron) 4 mg Route: IVP; Site: right antecubital; 5 03:42 Follow up: Response: No adverse reaction sm5 02:38 Drug: fentaNYL (PF) 25 mcg Route: IVP; Site: right antecubital; sm5 03:42 Follow up: Response: No adverse reaction sm5 03:41 Drug: Zosyn (piperacillin-tazobactam) 3.375 grams Route: IVPB; Infused Over: 60 mins; sm5 Site: right antecubital; 04:45 Follow up: IV Status: Completed infusion; IV Intake: 100ml sm5 03:41 Drug: morphine 4 mg Route: IVP; Infused Over: 4 mins; Site: right antecubital; sm5 04:15 Follow up: Response: No adverse reaction sm5 03:41 Drug: NS 0.9% 1000 ml Route: IV; Rate: 125 ml/hr; Site: right antecubital; sm5 04:10 Drug: Pepcid (famotidine) 20 mg Route: IVP; Site: right antecubital; sm5 05:26 Follow up: Response: No adverse reaction sm5 Disposition Summary: 08/25/21 05:17 Hospitalization Ordered Hospitalization Status: Observation og Condition: Fair og Problem: new og Symptoms: have improved og Bed/Room Type: Standard og Provider: Solis Kenney(08/25/21 05:20) og Location: Telemetry/MedSurg (observation)(08/25/21 20:29) Room Assignment: [facility](08/25/21 21:37) mw2 Diagnosis - Abdominal tenderness og - Nausea og - Diarrhea, unspecified og - Ileus, unspecified og - Coronavirus infection, unspecified og - SARS-associated coronavirus as the cause of diseases classified elsewhere og Forms: - Medication Reconciliation Form og - SBAR form og Signatures: Dispatcher [employer] Ruben Langley MD MD cha Williams, Irene RN SANA iw Chela Vidal RN RN cg Marinas, Patrick, NP RETAIL BUSINESS MANAGER pm1 Tommy Ordoñez mw2 Jewell Schreiber RN RN 5 Corrections: (The following items were deleted from the chart) 05:20 05:17 OmitpeterunAsaf og og 08:53 05:17 Telemetry/MedSurg (observation) og iw 08:53 05:17 og iw 20:29 08:53 [facility] ER HOLD iw cg 20:29 08:53 ERHOLD- iw cg 21:37 20:29 429 mw2
--- NOTE | 2021-08-25 05:48 | P.HP ---
Certification for Inpatient Patient admitted to: Observation With expected LOS: <2 Midnights Patient will require the following post-hospital care: None Practitioner: I am a practitioner with admitting privileges, knowledge of patient current condition, hospital course, and medical plan of care. Services: Services provided to patient in accordance with Admission requirements found in Title 42 Section 412.3 of the Code of Federal Regulations <RjamberCasimiro Irizarry - Last Filed: 08/25/21 05:41> Patient History Date of Service: 08/25/21 Reason for admission: Abdominal tenderness History of Present Illness: 51-year-old male with history of diabetes mellitus type 2insulin-dependent, hypertension, hyperlipidemia, GERD presents emergency department for 2 weeks of abdominal pain, nausea/vomiting/diarrhea, he reports that the diarrhea resolved about 2 days ago since then he has not had a bowel movement or reportedly passed any gas. 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 He was having GI symptoms prior to initiating the Bactrim he reports that he had lab work and an abdominal x-ray with his PCP which were reportedly normal. Given persistent abdominal pain/nausea and now with constipation ED prior wishes to admit for further evaluation and management, ED provider discussed case with general surgery who will be consulting. 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 - Family History Mother -: Diabetes - Social History Smoking Status: Never smoker Alcohol use: Yes CD- Drugs: No Caffeine use: Yes Place of Residence: Home <Casimiro Echols - Last Filed: 08/25/21 05:41> Date of Service: 08/25/21 <Solis Kenney - Last Filed: 08/25/21 17:03> Review of Systems 10-point ROS is otherwise unremarkable Gastrointestinal: Nausea, Abdominal Pain, Constipation, As per HPI <Casimiro Echols - Last Filed: 08/25/21 05:41> Physical Examination - Physical Exam General: Alert, In no apparent distress, Oriented x3, Obese HEENT: Atraumatic, PERRLA, Other (Mucous membranes dry), EOMI, Sclerae nonicteric Neck: Supple, 2+ carotid pulse no bruit, No LAD Respiratory: Clear to auscultation bilaterally, Normal air movement Cardiovascular: No edema, Regular rate/rhythm, Normal S1 S2 Capillary refill: <2 Seconds Gastrointestinal: Normal bowel sounds, Tenderness (Mild generalized abdominal tenderness worst in the epigastric region) Musculoskeletal: No tenderness Integumentary: No rashes Neurological: Normal speech, Normal strength at 5/5 x4 extr, Normal tone, Normal affect - Studies Laboratory Data (last 24 hrs) 08/25/21 02:21: PT 11.5, INR 1.04 08/25/21 02:21: WBC 8.4, Hgb 14.9, Hct 43.1, Plt Count 435 H 08/25/21 02:21: Sodium 135 L, Potassium 4.2, BUN 19 H, Creatinine 1.29, Glucose 118 H, Magnesium 2.0, Total Bilirubin 0.4, AST 90 H, ALT 127 H, Alkaline Phosphatase 59, Lipase 108 <Casimiro Echols - Last Filed: 08/25/21 05:41> - Studies Laboratory Data (last 24 hrs) 08/25/21 02:21: PT 11.5, INR 1.04 08/25/21 02:21: WBC 8.4, Hgb 14.9, Hct 43.1, Plt Count 435 H 08/25/21 02:21: Sodium 135 L, Potassium 4.2, BUN 19 H, Creatinine 1.29, Glucose 118 H, Magnesium 2.0, Total Bilirubin 0.4, AST 90 H, ALT 127 H, Alkaline Phosphatase 59, Lipase 108 <Solis Kenney - Last Filed: 08/25/21 17:03> Assessment and Plan - Plan Assessment: Abdominal pain/tenderness with N/V and constipation suspect enteritis versus ileus Diabetes mellitus type 2insulin-dependent Hypertension Hyperlipidemia GERD Plan: Abdominal pain/tenderness with N/V and constipation suspect enteritis versus ileus: N.p.o. for the time appreciate further input from surgery in regards to advancing diet, continue antibiotics-Zosyn as needed pain and nausea medications. Patient reports no bowel movement or passage of gas for the last 2 days but prior to that was having diarrhea 5-6 times per day, vomited once yesterday still having significant pain and nausea at this time. Diabetes mellitus type 2insulin-dependent: Every 6 hours Accu-Chek with sliding scale while patient is n.p.o. switch to ACH S once diet is started. Hypertension: Hold p.o. medications at this time restart home medications when appropriate Hyperlipidemia: Hold p.o. medications at this time restart home medications when appropriate GERD: IV Protonix, convert to p.o. when tolerating p.o. DVT PPX: Lovenox Code status: Full Discharge Plan: Home Plan to discharge in: 24 Hours - Advance Directives Does patient have a Living Will: No Does patient have a Durable POA for Healthcare: No - Code Status/Comfort Care Code Status Assessed: Yes (Full code) Critical Care: No Time Spent Managing Pts Care (In Minutes): 70 <Casimiro Echols - Last Filed: 08/25/21 05:41> Physician Review Additional Text: I have personally seen and evaluated Mr. Dean Rosenthal. I reviewed the notes and assessments performed by Casimiro Echols NP. I independently performed my own history and physical examination. I agree with the assessment and plan as outlined in his note. I concur with his documentation of Mr. Rosenthal. <Solis Kenney - Last Filed: 08/25/21 17:03>
[2021-08-25] MEDS ORDERED: SODIUM CHLORIDE 0.9% 10ML INJ IV PRN (07:25)
[2021-08-25] MEDS: INSULIN -REGULAR HUMAN 50 UNIT/0.5 ML ML SQ SCH ×4 (07:30→22:56)
[2021-08-25] MEDS ORDERED: PANTOPRAZOLE 40 MG INJ ONE (07:52)
[2021-08-25] MEDS: ONDANSETRON 4 MG/2 ML VIAL IV PRN ×2 (08:25→16:34)
[2021-08-25] MEDS: NA CHLORIDE 0.9% 1,000 ML IV SCH ×2 (08:25→22:53)
[2021-08-25] MEDS ORDERED: MORPHINE 2 MG/ML SYR ONE ×2 (08:26→16:30)
[2021-08-25] MEDS: PANTOPRAZOLE 40 MG INJ IVP SCH (08:26)
[2021-08-25] MEDS: MORPHINE 2 MG/ML SYR IV PRN ×3 (08:27→22:54)
[2021-08-25] MEDS: ENOXAPARIN 40 MG/0.4 ML SQ SCH (08:35)
[2021-08-25] MEDS: PIPER TAZO 3.375 GM in NA CHLORIDE 0.9% 100 ML IV SCH ×2 (08:40→16:41)
--- NOTE | 2021-08-25 10:32 | RAD REPORT ---
EXAM DESCRIPTION: CT - Abdomen Pelvis W Contrast - 08/25/2021 6:34 am CLINICAL HISTORY: Abdominal pain, acute, nonlocalized COMPARISON: None Available. TECHNIQUE: CT of the abdomen and pelvis performed following IV administration of iodinated contras t. This exam was performed according to our departmental dose-optimization program, which includes au tomated exposure control, adjustment of the mA and/or kV according to patient size and/or use of iter ative reconstruction technique. FINDINGS: Lung Bases: The visualized lung bases are clear. Bones: Mild endplate spondylosis. Osteoarthritic change of the hips. Abdomen: Liver: Hepatomegaly with decreased density. Gallbladder: No calcified gallstones. Spleen, Pancreas, and Adrenal Glands: The spleen, pancreas, and adrenal glands are unremarkable. Kidneys: No hydronephrosis or obstructing calculus. Vasculature: Aortoiliac atherosclerosis. IVC is unremarkable. Circumaortic left renal vein. The por leslee vein is patent. The proximal visceral and renal arteries are patent. Stomach: The stomach and duodenum have normal course. Other: No free intraperitoneal air. No free fluid or lymphadenopathy. Internal hernia. Pelvis: Bladder: Urinary bladder is unremarkable. Bowel: Single distended loop of small bowel in the midabdomen.. Scattered diverticula colon. Appendix: Normal appendix. Pelvis: Enlarged prostate. IMPRESSION: 1. Single distended loop of small bowel in the midabdomen. These findings could be see n with nonspecific ileus/enteritis. 2. Hepatomegaly and hepatic steatosis. 3. Enlarged prostate. 4. Diverticulosis without evidence of acute diverticulitis. Electronically signed by: Rell Puente 08/25/2021 4:55 AM CDT Due to temporary technical issues with the PACS/Fluency reporting system, reports are being signed by the in house radiologists without review as a courtesy to insure prompt reporting. The interpreting radiologist is fully responsible for the content of the report.
[2021-08-25 11:00] VITALS: O2SAT 95
--- NOTE | 2021-08-25 11:29 | RAD REPORT ---
EXAM DESCRIPTION: RAD - Chest Single View - 08/25/2021 2:51 am CLINICAL HISTORY: ABDOMINAL DISTENTION COMPARISON: None. FINDINGS: Single frontal radiograph view of the chest. Cardiomediastinal silhouette: Normal size and contour. Leads overlie the chest. Lungs: No consolidation, pneumothorax, or pleural effusion. Bones: Mild endplate spondylosis. Upper abdomen: No abnormality identified. IMPRESSION: 1. No acute pulmonary process identified. Electronically signed by: Rell Puente 08/25/2021 4:50 AM CDT Due to temporary technical issues with the PACS/Fluency reporting system, reports are being signed by the in house radiologists without review as a courtesy to insure prompt reporting. The interpreting radiologist is fully responsible for the content of the report.
--- NOTE | 2021-08-25 16:29 | P.CNS ---
Date of Consult: 08/25/21 PC: This patient presented the emergency room with abdominal pain and not feeling we HPC: Patient states he has been feeling well for the last 24 to 48 hours. PSHx: NAD Social Hx: No known allergies Sys R: States he just has been feeling well for the last few days. Also has mild cough. Has been urinating okay. No altercation in bowel habit. O/E: Awake alert vital signs are stable HEENT: Nonicteric Chest: Chest movement equal bilaterally Abd: Generalized abdominal tenderness, no specific localizing signs [place]: Intact Data: White cell count is normal, is positive for COVID Impression: Abdominal pain Plan: I do not feel this patient has a surgical abdomen. He does have generalized abdominal pain. I would recommend treatment with IV fluids, clear liquids as tolerated, he does not require surgical intervention at this time. I will reassess the patient, if he is still in the hospital tomorrow. Thank you for the consult
[2021-08-26] MEDS: PIPER TAZO 3.375 GM in NA CHLORIDE 0.9% 100 ML IV SCH ×3 (00:31→16:48)
[2021-08-26 03:50] LABS: Absolute Lymphocytes (CBC) 2.7 K/uL (0.7-4.9); Hematocrit 38.1 % (39.6-49.0); Lymphocytes % 47.2 % (15.3-44.8); MCV 87.7 fL (80-100); MPV 7.3 fL (7.6-11.3); RBC Red Blood Cell Count 4.34 M/uL (4.33-5.43)
[2021-08-26 04:08] LABS: Albumin 3.5 g/dL (3.4-5.0); Bilirubin Total 0.5 mg/dL (0.2-1.0); Magnesium 1.8 mg/dL (1.8-2.4); Potassium 3.9 mmol/L (3.5-5.1); Protein, Total 7.1 g/dL (6.4-8.2)
[2021-08-26] MEDS ORDERED: MORPHINE 2 MG/ML SYR IV ONE (04:13)
[2021-08-26] MEDS: INSULIN -REGULAR HUMAN 50 UNIT/0.5 ML ML SQ SCH ×4 (07:30→20:28)
[2021-08-26] MEDS ORDERED: POTASSIUM CL SA 10 MEQ TAB PO ONE (08:00)
[2021-08-26] MEDS ORDERED: MAGNESIUM SULFATE 1 gm IVPB 1 GM/100 ML BAG IV ONE (08:00)
[2021-08-26] MEDS: ENOXAPARIN 40 MG/0.4 ML SQ SCH (08:37)
[2021-08-26] MEDS: PANTOPRAZOLE 40 MG INJ IVP SCH (08:38)
[2021-08-26] MEDS: NA CHLORIDE 0.9% 1,000 ML IV SCH ×2 (08:49→13:25)
[2021-08-26] MEDS: MORPHINE 2 MG/ML SYR IV PRN ×2 (08:53→22:35)
--- NOTE | 2021-08-26 16:39 | P.PN ---
Subjective Date of Service: 08/26/21 Chief Complaint: Abdominal tenderness He was able to pass flatus overnight and reports that he had 2 small "pebble" bowel movements. He was started on clear liquid diet this morning, but is reporting some mild abdominal pain with this diet. He denies any nausea, vomiting, or diarrhea. Review of Systems General: Unremarkable Eyes: Unremarkable ENT: Unremarkable Respiratory: Unremarkable Cardiovascular: Unremarkable Gastrointestinal: Abdominal Pain Genitourinary: Unremarkable Musculoskeletal: Unremarkable Integumentary: Unremarkable Neurological: Unremarkable Physical Examination - Vital Signs Temperature: 98.6 F Blood Pressure: 146/81 Pulse: 89 Respirations: 16 Pulse Ox (%): 97 - Physical Exam General: Alert, In no apparent distress, Oriented x3 HEENT: Atraumatic, Mucous membr. moist/pink, EOMI, Sclerae nonicteric Neck: Supple, JVD not distended Respiratory: Clear to auscultation bilaterally, Normal air movement Cardiovascular: Regular rate/rhythm, Normal S1 S2, No gallops, No rubs, No murmurs Gastrointestinal: Hypoactive, No rebound, No guarding, Tenderness (mild generalized) Musculoskeletal: No clubbing Integumentary: No rashes Neurological: Normal speech, Normal affect - Studies Medications List Reviewed: Yes Assessment And Plan - Plan # Suspected Ileus vs Enteritis # Diverticulosis without Diverticulitis - General Surgery consulted and he was evaluated by Dr. Gusman - Does not feel that he requires surgical intervention - On CLD - advance as tolerated - Symptom control: - PRN ondansetron, acetaminophen, morphine - IV fluids with Normal Saline at 100 mL/hr - Continue piperacillin-tazobactam for now # Type II Diabetes Mellitus - Correction scale insulin ordered # Hypertension # Hyperlipidemia # Gastroesophageal Reflux Disease - Resume home meds once tolerating PO # Hepatomegaly and Hepatic Steatosis # Morbid Obesity - BMI 41.7 kg/m2 - Has risk factors for MCCORD (obesity, HTN, DM2, HLD) - Ordered HCV screening - Follow-up with PCP for further evaluation Solis Kenney MD Discharge Plan: Home Plan to discharge in: 24 Hours - Code Status/Comfort Care Code Status Assessed: Yes Code Status: Full Code Critical Care: No
[2021-08-26] MEDS: ONDANSETRON 4 MG/2 ML VIAL IV PRN (22:35)
[2021-08-27] MEDS: NA CHLORIDE 0.9% 1,000 ML IV SCH ×4 (00:25→18:25)
[2021-08-27] MEDS: PIPER TAZO 3.375 GM in NA CHLORIDE 0.9% 100 ML IV SCH ×3 (00:25→16:53)
[2021-08-27 04:49] LABS: Absolute Lymphocytes (CBC) 2.6 K/uL (0.7-4.9); Hematocrit 36.9 % (39.6-49.0); Lymphocytes % 44.9 % (15.3-44.8); MCV 87.7 fL (80-100); MPV 7.3 fL (7.6-11.3)
[2021-08-27 04:58] LABS: Albumin 3.4 g/dL (3.4-5.0); Bilirubin Total 0.6 mg/dL (0.2-1.0); Magnesium 1.9 mg/dL (1.8-2.4); Potassium 3.7 mmol/L (3.5-5.1); Protein, Total 6.9 g/dL (6.4-8.2)
[2021-08-27 06:18] VITALS: BMI 41.5
[2021-08-27] MEDS: INSULIN -REGULAR HUMAN 50 UNIT/0.5 ML ML SQ SCH ×4 (07:30→20:38)
[2021-08-27] MEDS: PANTOPRAZOLE 40 MG INJ IVP SCH (08:40)
[2021-08-27] MEDS: ENOXAPARIN 40 MG/0.4 ML SQ SCH (08:40)
[2021-08-27] MEDS ORDERED: POTASSIUM CL SA 10 MEQ TAB PO ONE (09:00)
--- NOTE | 2021-08-27 13:52 | EKG ---
Test Date: 2021-08-25 Test Time: 02:45:49 Business Transformation Consultant: KRISTOPHER MEASUREMENT RESULTS: Intervals: Rate: 82 ID: [id number] QRSD: 94 QT: 378 QTc: 441 [place]: P: 71 ID: [id number] QRS: 69 T: 57 INTERPRETIVE STATEMENTS: Normal sinus rhythm Cannot rule out Anterior infarct, age undetermined Abnormal ECG No previous ECG available for comparison Electronically Signed On 08-27-21 13:47:46 CDT by Mehrdad Cantu
[2021-08-27] MEDS: MORPHINE 2 MG/ML SYR IV PRN (18:05)
[2021-08-27] MEDS: ONDANSETRON 4 MG/2 ML VIAL IV PRN (18:05)
[2021-08-28] MEDS: PIPER TAZO 3.375 GM in NA CHLORIDE 0.9% 100 ML IV SCH ×2 (00:45→09:20)
[2021-08-28] MEDS: ACETAMINOPHEN 325 MG TABLET PO PRN ×2 (00:46→09:28)
[2021-08-28] MEDS: MORPHINE 2 MG/ML SYR IV PRN (00:46)
[2021-08-28 03:46] LABS: Absolute Lymphocytes (CBC) 2.7 K/uL (0.7-4.9); Hematocrit 36.1 % (39.6-49.0); Lymphocytes % 41.4 % (15.3-44.8); MCV 86.1 fL (80-100); MPV 7.4 fL (7.6-11.3)
[2021-08-28] MEDS: NA CHLORIDE 0.9% 1,000 ML IV SCH (04:02)
[2021-08-28 04:04] LABS: ALT/SGPT 91 U/L (12-78); AST/SGOT 48 U/L (15-37); Albumin 3.2 g/dL (3.4-5.0); Alkaline Phosphatase 55 U/L (45-117); Bicarbonate 23 mmol/L (21-32); Bilirubin Total 0.5 mg/dL (0.2-1.0); Glomerular Filtration Rate 100 ml/min (=/>90); Glucose Level 103 mg/dL (74-106); Magnesium 1.7 mg/dL (1.8-2.4); Potassium 3.9 mmol/L (3.5-5.1); Protein, Total 6.7 g/dL (6.4-8.2); Sodium Level 141 mmol/L (136-145)
[2021-08-28 04:06] LABS: BUN Blood Urea Nitrogen < 3 mg/dL (7-18)
[2021-08-28] MEDS ORDERED: MAGNESIUM SULFATE 1 gm IVPB 1 GM/100 ML BAG IV ONE (05:45)
[2021-08-28] MEDS: INSULIN -REGULAR HUMAN 50 UNIT/0.5 ML ML SQ SCH ×2 (07:30→11:30)
[2021-08-28] MEDS ORDERED: POTASSIUM CL SA 10 MEQ TAB PO ONE (09:00)
[2021-08-28] MEDS: ENOXAPARIN 40 MG/0.4 ML SQ SCH (09:20)
[2021-08-28] MEDS: PANTOPRAZOLE 40 MG INJ IVP SCH (09:20)
--- NOTE | 2021-08-28 10:26 | P.PN ---
Date of Service: 08/27/21 Subjective He was able to pass flatus overnight and reports that he had 2 small "pebble" bowel movements. He was started on clear liquid diet this morning, but is reporting some mild abdominal pain with this diet. He denies any nausea, vomiting, or diarrhea. Physical Examination - Vital Signs reviewed - Physical Exam General: Alert, In no apparent distress, Oriented x3 Respiratory: Clear to auscultation bilaterally, Normal air movement Cardiovascular: Regular rate/rhythm, Normal S1 S2, No gallops, No rubs, No murmurs Gastrointestinal: Hypoactive, No rebound, No guarding, Tenderness (mild generalized) Neurological: No focal deficits Assessment And Plan - Plan 1. Suspected Ileus vs Enteritis 2. Diverticulosis without Diverticulitis 3. Type II Diabetes Mellitus 4. Hypertension 5. Hyperlipidemia 6. Gastroesophageal Reflux Disease 7. Hepatomegaly and Hepatic Steatosis 8. Morbid Obesity - BMI 41.7 kg/m2 -IV antibiotics -IV fluids -Surgery and GI consultation as an outpatient -CBC, CMP, lipase, stool cultures -Diet as tolerated -Antiemetics Discharge Plan: Home Plan to discharge in: 24 Hours - Code Status/Comfort Care Code Status Assessed: Yes Code Status: Full Code Critical Care: No
--- NOTE | 2021-08-28 10:34 | P.DS ---
Discharge Date: 08/28/21 Disposition: ROUTINE DISCHARGE Discharge Condition: GOOD Reason for Admission: Abdominal tenderness Brief History of Present Illness: 51-year-old male with history of diabetes mellitus type 2insulin-dependent, hypertension, hyperlipidemia, GERD presents emergency department for 2 weeks of abdominal pain, nausea/vomiting/diarrhea, he reports that the diarrhea resolved about 2 days ago since then he has not had a bowel movement or reportedly passed any gas. 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 He was having GI symptoms prior to initiating the Bactrim he reports that he had lab work and an abdominal x-ray with his PCP which were reportedly normal. Given persistent abdominal pain/nausea and now with constipation ED prior wishes to admit for further evaluation and management, ED provider discus sed case with general surgery who will be consulting. Hospital Course: Patient is clinically doing well. Pain is better controlled. At this time, patient stable for discharge home with outpatient follow-up with gastroenterology for colonoscopy. Vital Signs/Physical Exam: Temp Pulse Resp BP Pulse Ox 97.6 F 85 20 151/78 H 97 08/28/21 08:00 08/28/21 08:00 08/28/21 08:00 08/28/21 08:00 08/28/21 08:00 General: Alert, In no apparent distress, Oriented x3 Laboratory Data at Discharge: WBC 6.6 K/uL (4.3-10.9) D 08/28/21 03:02 Hgb 12.4 g/dL (13.6-17.9) L 08/28/21 03:02 Hct 36.1 % (39.6-49.0) L 08/28/21 03:02 Plt Count 325 K/uL (152-406) 08/28/21 03:02 PT 11.5 SECONDS (9.5-12.5) 08/25/21 02:21 INR 1.04 08/25/21 02:21 Sodium 141 mmol/L (136-145) 08/28/21 03:02 Potassium 3.9 mmol/L (3.5-5.1) 08/28/21 03:02 BUN < 3 mg/dL (7-18) L 08/28/21 03:02 Creatinine 0.93 mg/dL (0.55-1.3) 08/28/21 03:02 Glucose 103 mg/dL (74-106) 08/28/21 03:02 Magnesium 1.7 mg/dL (1.8-2.4) L 08/28/21 03:02 Total Bilirubin 0.5 mg/dL (0.2-1.0) 08/28/21 03:02 AST 48 U/L (15-37) H 08/28/21 03:02 ALT 91 U/L (12-78) H 08/28/21 03:02 Alkaline Phosphatase 55 U/L (45-117) 08/28/21 03:02 Lipase 108 U/L (73-393) 08/25/21 02:21 Home Medications: Albuterol Inhaler [Ventolin Inhaler*] 2 puff IH Q6H PRN 08/26/21 Atorvastatin Calcium [Lipitor] 40 mg PO BEDTIME 08/26/21 Clotrimazole/Betamethasone Dip [Clotrimazole-Betamethasone Crm] 1 appl TOP BID 08/26/21 Cyclobenzaprine [Flexeril*] 10 mg PO TID PRN 08/26/21 Empagliflozin [Jardiance] 25 mg PO AC 08/26/21 Insulin Aspart [Novolog Flexpen] 10 units SQ TIDWM 08/26/21 Insulin Glargine,Hum.rec.anlog [Toujeo Solostar] 50 units SQ AC 08/26/21 Lisinopril [Zestril] 10 mg PO DAILY 08/26/21 Meloxicam [Mobic*] 7.5 mg PO DAILY 08/26/21 Metformin HCl [Glucophage*] 1,000 mg PO BID 08/26/21 Montelukast [Singulair*] 10 mg PO BEDTIME 08/26/21 Pantoprazole [Protonix Tab*] 40 mg PO DAILY 08/26/21 Pregabalin [Lyrica*] 75 mg PO BID 08/26/21 Semaglutide [Ozempic] 1 mg SQ Q7D 08/26/21 Suvorexant [Belsomra] 15 mg PO BEDTIME PRN 08/26/21 Hydrocodone 7.5/APAP 325 [[place] 7.5/325 mg] 1 tab PO Q6H PRN #30 tab 08/28/21 levoFLOXacin [Levaquin] 500 mg PO DAILY #7 tab 08/28/21 metroNIDAZOLE [Flagyl] 500 mg PO Q8H #20 tablet 08/28/21 New Medications: metroNIDAZOLE [Flagyl] 500 mg PO Q8H #20 tablet levoFLOXacin [Levaquin] 500 mg PO DAILY #7 tab Hydrocodone 7.5/APAP 325 [[place] 7.5/325 mg] 1 tab PO Q6H PRN #30 tab PRN Reason: Pain Physician Discharge Instructions: -DC IV and DC home -Follow-up with PCP in 1 to 2 weeks -Follow-up with GI in 1 to 2 weeks -Please call Dr. Pitts at [phone] if any questions regarding hospital stay -Please call nursing station at [phone] if any nursing or medication questions -Return to the emergency room if symptoms worsen Diet: AHA Activity: Fall precautions Followup: Karina Coughlin NP [Primary Care Provider] - Time spent managing pt's care (in minutes): 35
[2021-08-28 12:08] VITALS: BP 124/67; TEMP 97.3
--- OUTSIDE RECORDS SUMMARY | 2021-09-05 19:22 | XMS REPORT | Continuity of Care Document ---
:1970 Author Organization [facility] t Address [address] [place] [address] Dr. Almanza. [address] [place] [id number] Care Team Providers Name Role Phone Rodney Attending Clinician Unavailable JORDANA YADAV Attending Clinician Unavailable Baum_L Attending Clinician Unavailable Jordana Yadav MD Attending Clinician Juan Carlos WEST Attending Clinician Humberto Cloud MD Attending Clinician Tammy Bradshaw Attending Clinician AQUILINO Attending Clinician Unavailable Nurse, Urgent Care Attending Clinician Unavailable Aquilino MONSALVE Attending Clinician Therapy, Covid Infusion Attending Clinician Unavailable Cesar LÓPEZ G Attending Clinician Kevin GUERRERO Attending Clinician Unavailable Doctor Unassigned, Name Attending Clinician Unavailable Edvin MONSALVE Attending Clinician EDVIN Attending Clinician Unavailable JORDANA YADAV Admitting Clinician Unavailable Baum_L Admitting Clinician Unavailable Payers Payer Name Policy Type Policy Number Effective Date Expiration Date S [facility] [id number] 2020 00:00:00 [employer] PPO POS EPO [id number] 2020 00:00:00 CHOICE Problems Condition Condition Condition Status Onset Resolution Last Treating Co mments Source Name Details Category Date Date Treatment Clinician Date Cellulitis Cellulitis Disease Active [facility] Medica l 00 Center No known No known Disease Unive rs active active ity of problems problems [facility] Allergies, Adverse Reactions, Alerts Allergy Allergy Status Severity Reaction(s) Onset Inactive Treating Comm ents Source Name Type Date Date Clinician NO KNOWN Drug Active Univers ALLERGIE Class [facility] of [facility] NO KNOWN Allergy Active [facility] Social History Social Habit Start Date Stop Date Quantity Comments Source Exposure to Yes [facility] SARS-CoV-2 (event) [facility] Sex Assigned At 1970 [address] [facility] Medical 00:00:00 00:00:00 Center Smoking Status Start Date Stop Date Source Unknown if ever smoked [facility] Medications Ordered Filled Start Stop Current Ordering Indication Dosage Frequency Signature Comments Components Source Medication Medication Date Date Medication? Clinician (SIG) Name Name metFORMIN Yes 1000mg Take 1,[address] [facility] (GLUCOPHAGE 7-02 mg by [facility] ) 1000 MG 11:59: mouth 2 Medic al tablet 38 (two) Center times daily with breakfast and dinner. lisinopriL Yes 10mg QD Take [address] (PRINIVIL,Z 7- by mouth Luke s ESTRIL) 10 11:59: daily. Medic al MG tablet 38 Center atorvastati Yes 40mg QD Take [address] [facility] (LIPITOR) 702 by mouth Luke s 40 MG 11:59: daily Medical tablet 38 lunchtime Center . pantoprazol Yes 40mg QD Take [address] [facility] e 7-02 by mouth [facility] (PROTONIX) 11:59: daily. Medic al 40 MG 38 Center tablet multivitami Yes 1{tbl} QD Take [address] [facility] per 08-18 tablet by [facility] tablet 11:59: mouth Medical 38 daily. Center metFORMIN Yes 1000mg Take 1,[address] (GLUCOPHAGE 7-02 mg by [facility] ) 1000 MG 11:59: mouth 2 Medic al tablet 38 (two) Center times daily with breakfast and dinner. lisinopriL Yes 10mg QD Take [address] (PRINIVIL,Z 7-02 by mouth Luke s ESTRIL) 10 11:59: daily. Medic al MG tablet 38 Center atorvastati Yes 40mg QD Take [address] [address] [facility] (LIPITOR) 02 by mouth Luke s 40 MG 11:59: daily Medical tablet 38 lunchtime Center . pantoprazol Yes 40mg QD Take [address] e 02 by mouth [facility] (PROTONIX) 11:59: daily. Medic al 40 MG 38 Center tablet multivitami Yes 1{tbl} QD Take [address] n per 08-18 tablet by [facility]ukes tablet 11:59: mouth Medical 38 daily. Center HYDROcodone Yes Abscess of 1{tbl} Take [address] -acetaminop 08-18 perineum tablet by [facility] hen (NORCO 00:00: mouth Medica l 5-325) 00 every 6 Center 5-325 mg (six) per tablet hours as needed for Pain. Max Daily Amount: 4 tablets insulin Yes 50U QD Inject 50 [facility] glargine 7-02 Units [facility] U-300 conc 00:00: subcutaneo M edical 300 unit/mL 00 usly every Ce nter (3 mL) InPn morning. insulin Yes 10U Inject 10 [facility] lispro 7-02 Units [facility] (HumaLOG) 00:00: subcutaneo Me dical 100 unit/mL 00 usly 3 Center InPn (three) times daily before meals. pen needle, Yes Use as [facility] diabetic 31 08-18 directed. Suha es gauge x 00:00: Medical 07/02" Ndle 00 Center bisacodyL Yes 5mg Take [address] [facility] (DULCOLAX) -02 tablet (5 Luke s 5 mg EC 00:00: mg total) Medic al tablet 00 by mouth Center daily as needed for Constipati on. HYDROcodone Yes Abscess of 1{tbl} Take [address] -acetaminop - perineum tablet by Rakesh hen (NORCO 00:00: mouth Medica l 5-325) 00 every 6 Center 5-325 mg (six) per tablet hours as needed for Pain. Max Daily Amount: 4 tablets insulin Yes 50U QD Inject 50 [facility] glargine 7-02 Units [facility] U-300 conc 00:00: subcutaneo M edical 300 unit/mL 00 usly every Ce nter (3 mL) InPn morning. insulin Yes 10U Inject 10 [facility] lispro 7-02 Units [facility] (HumaLOG) 00:00: subcutaneo Me dical 100 unit/mL 00 usly 3 Center InPn (three) times daily before meals. pen needle, Yes Use as [facility] diabetic 31 08-18 directed. Suha es gauge x 00:00: Medical 07/02" Ndle 00 Center bisacodyL Yes 5mg Take [address] (DULCOLAX) 08-18 tablet (5 Luke s 5 mg EC 00:00: mg total) Medic al tablet 00 by mouth Center daily as needed for Constipati on. amoxicillin 2020- No 1{tbl} Q.5D Take [address] -clavulanat 08-18 tablet by Andrea edward 00:00: 23:59 mouth 2 Medical (AUGMENTIN) 00 :00 (two) Center 875-125 mg times per tablet daily for 7 days. doxycycline 2020- No 100mg Q.5D Take [address] (MONODOX) 08-18- capsule [facility] 100 MG 00:00: 23:59 (100 mg Medical capsule 00 :00 total) by Center mouth 2 (two) times daily for 7 days. amoxicillin 2020- No 1{tbl} Q.5D Take [address] -clavulanat -03 26- tablet by Andrea edward 00:00: 23:59 mouth 2 Medical (AUGMENTIN) 00 :00 (two) Center 875-125 mg times per tablet daily for 7 days. doxycycline 2020- No 100mg Q.5D Take [address] (MONODOX) 08-18 capsule [facility] 100 MG 00:00: 23:59 (100 mg Medical capsule 00 :00 total) by Center mouth 2 (two) times daily for 7 days. proMETHazin 2020- No 12.5mg 12.5 mg, Univers e 03-19 IV ity of (PHENERGAN) 07:15: 07:15 [place], [place] 12.5 mg in 00 :00 ONCE, 1 Medica l NaCl 0.9% dose, Sun Branc h (NS) 50 mL 03/19/20 [facility], 50 mL NaCl 0.9% 2020- No 1000mL at 999 Uni vers (NS) bolus 03-19 mL/hr, ity of infusion 03:45: 05:00 1,000 mL, [place] as 1,000 mL 00 :00 IV Medical Infusion, Oneco ONCE, 1 dose, 03/18/20 at 2145, STAT proMETHazin 2020- No 12.5mg 12.5 mg, [facility] e 03-19 IV ity of (PHENERGAN) 03:00: 03:00 Procious, [place] 12.5 mg in 00 :00 ONCE, 1 Medica l NaCl 0.9% dose, Sat Branc h (NS) 50 mL 03/18/20 at [facility] 2100, 50 mL NaCl 0.9% 2020- No 500mL at 999 Univ ers (NS) bolus 03-19 mL/hr, 500 it y of infusion 02:15: 02:30 mL, IV [place] 500 mL 00 :00 Infusion, Medical ONCE, 1 Oneco dose, 03/18/20 at 2014, STAT ondansetron 2020- No 4mg 4 mg, Slow Univers (ZOFRAN 03-19 IV Push, ity of (PF)) 02:15: :31 ONCE, 1 [place] injection 4 00 :00 dose, Sat Med ical mg 03/18/20 at Branch 2014, KACY proMETHazin Yes [id number] 25mg Insert 1 [facility] e 03-19 Suppositor ity of (PHENERGAN) 00:00: y [place] 25 mg 00 rectum Medical suppository every 4 Branc h (four) hours as needed for Nausea and Vomiting (N/V). bamlanivima 2020- No 700mg 700 mg, IV Univers b (EUA) 700 03-15 Infusion, it y of mg in NaCl 16:45: 17:30 ONCE, Wed [place] 0.9% (NS) 00 :00 03/15/20 at Medi thelma 270 mL 1045, For Branch infusion 1 dose
Ad oil burner as an IV infusion over 60 minutes through a PVC infusion set containing a 0.2 or 0.22 micron in-line polyethers ulfone filter.&nb sp; S low or stop infusion and treat as appropriat e if an infusion-r elated reaction occurs. Dilu odalys infusion solution should be administer ed immediatel y. If immediate administra tion is not possible, store diluted bamlanivim ab infusion solution for up to 24 hours refrigerat ed at 2?C to 8?C (36?F to 46?F) or up to 7 hours at 20?C to 25?C (68?F to 77?F) including infusion time.
bamlanivima 2020- No 700mg 700 mg, IV Univers b (EUA) 700 03-15 Infusion, it y of mg in NaCl 16:45: 17:30 ONCE, Wed [place] 0.9% (NS) 00 :00 03/15/20 at Medi thelma 270 mL 1045, For Branch infusion 1 dose
Ad oil burner as an IV infusion over 60 minutes through a PVC infusion set containing a 0.2 or 0.22 micron in-line polyethers ulfone filter.&nb sp; S low or stop infusion and treat as appropriat e if an infusion-r elated reaction occurs. Dilu odalys infusion solution should be administer ed immediatel y. If immediate administra tion is not possible, store diluted bamlanivim ab infusion solution for up to 24 hours refrigerat ed at 2?C to 8?C (36?F to 46?F) or up to 7 hours at 20?C to 25?C (68?F to 77?F) including infusion time.
ondansetron 2020- No 4mg 4 mg, Slow Univers (ZOFRAN 1-25 -25 IV Push, ity of (PF)) 01:15: 00:14 ONCE, 1 [place] injection 4 00 :00 dose, Sun Med ical mg 03/12/20 at Branch 1915, KACY ketorolac 2020- No 30mg 30 mg, Unive rs (TORADOL) 03-13-25 Slow IV ity of injection 01:00: 00:14 Push, [place] 30 mg 00 :00 ONCE, 1 Medical dose, Sun Branch 03/12/20 at 1900, Routine
economics faculty member approving Restricted medication : DREHELENA, STEFANY G NaCl 0.9% 2020- No 1000mL at 999 Uni vers (NS) bolus 03-13-25 mL/hr, ity of infusion 00:15: 02:45 1,000 mL, [place] as 1,000 mL 00 :00 IV Medical Infusion, Branch ONCE, 1 dose, [place] 03/12/20 at 1815, KACY ondansetron Yes [id number] 4mg Take 1 Univers (ZOFRAN 1-24 tablet by ity of ODT) 4 mg 00:00: mouth [place] disintegrat 00 every 8 Medic al ing tablet (eight) Branch hours as needed for Nausea and Vomiting (N/V). ibuprofen Yes [id number] 800mg Take 1 Univers 800 mg 1-24 tablet by ity of tablet 00:00: mouth [place] 00 every 6 Medical (six) Branch hours as needed for Pain (scale 1-3) or Temp > 38.5 C. ondansetron Yes [id number] 4mg Take 1 Univers (ZOFRAN 1-24 tablet by ity of ODT) 4 mg 00:00: mouth [place] disintegrat 00 every 8 Medic al ing tablet (eight) Branch hours as needed for Nausea and Vomiting (N/V). ibuprofen Yes [id number] 800mg Take 1 Univers 800 mg 1-24 tablet by ity of tablet 00:00: mouth [place] 00 every 6 Medical (six) Branch hours as needed for Pain (scale 1-3) or Temp > 38.5 C. ondansetron Yes [id number] 4mg Take 1 Univers (ZOFRAN 1-24 tablet by ity of ODT) 4 mg 00:00: mouth [place] disintegrat 00 every 8 Medic al ing tablet (eight) Branch hours as needed for Nausea and Vomiting (N/V). ibuprofen Yes [id number] 800mg Take 1 Univers 800 mg 1-24 tablet by ity of tablet 00:00: mouth [place] 00 every 6 Medical (six) Branch hours as needed for Pain (scale 1-3) or Temp > 38.5 C. ondansetron Yes [id number] 4mg Take 1 Univers (ZOFRAN 1-24 tablet by ity of ODT) 4 mg 00:00: mouth [place] disintegrat 00 every 8 Medic al ing tablet (eight) Branch hours as needed for Nausea and Vomiting (N/V). ibuprofen Yes [id number] 800mg Take 1 Univers 800 mg 1-24 tablet by ity of tablet 00:00: mouth [place] 00 every 6 Medical (six) Branch hours as needed for Pain (scale 1-3) or Temp > 38.5 C. ondansetron Yes [id number] 4mg Take 1 Univers (ZOFRAN 1-24 tablet by ity of ODT) 4 mg 00:00: mouth [place] disintegrat 00 every 8 Medic al ing tablet (eight) Branch hours as needed for Nausea and Vomiting (N/V). ibuprofen Yes [id number] 800mg Take 1 Univers 800 mg 1-24 tablet by ity of tablet 00:00: mouth [place] 00 every 6 Medical (six) Branch hours as needed for Pain (scale 1-3) or Temp > 38.5 C. ondansetron Yes [id number] 4mg Take 1 Univers (ZOFRAN 1-24 tablet by ity of ODT) 4 mg 00:00: mouth [place] disintegrat 00 every 8 Medic al ing tablet (eight) Branch hours as needed for Nausea and Vomiting (N/V). ibuprofen Yes [id number] 800mg Take 1 Univers 800 mg 1-24 tablet by ity of tablet 00:00: mouth [place] 00 every 6 Medical (six) Branch hours as needed for Pain (scale 1-3) or Temp > 38.5 C. lisinopriL Yes TAKE 1 Unive rs 10 mg 1-04 TABLET BY ity of tablet 00:00: MOUTH [place] EVERY DAY Medical Branch lisinopriL 0 Yes TAKE 1 Unive rs 10 mg 1-04 TABLET BY ity of tablet 00:00: MOUTH [place] EVERY DAY Medical Branch lisinopriL 0 Yes TAKE 1 Unive rs 10 mg 1-04 TABLET BY ity of tablet 00:00: MOUTH [place] EVERY DAY Medical Branch lisinopriL 0 Yes TAKE 1 Unive rs 10 mg 1-04 TABLET BY ity of tablet 00:00: MOUTH [place] EVERY DAY Medical Branch lisinopriL 0 Yes TAKE 1 Unive rs 10 mg 1-04 TABLET BY ity of tablet 00:00: MOUTH [place] EVERY DAY Medical Branch lisinopriL 0 Yes TAKE 1 Unive rs 10 mg 1-04 TABLET BY ity of tablet 00:00: [facility] EVERY DAY Medical Branch atorvastati 2019-02 Yes 40mg Take 40 mg Univers n 40 mg 2-18 by mouth. ity of tablet 00:00: [place] [facility] atorvastati 2019-02 Yes 40mg Take 40 mg Univers n 40 mg 2-18 by mouth. ity of tablet 00:00: [place] [facility] atorvastati 2019-02 Yes 40mg Take 40 mg Univers n 40 mg 2-18 by mouth. ity of tablet 00:00: [place] [facility] atorvastati 2019-02 Yes 40mg Take 40 mg Univers n 40 mg 2-18 by mouth. ity of tablet 00:00: [place] [facility] atorvastati 2019-02 Yes 40mg Take 40 mg Univers n 40 mg 2-18 by mouth. ity of tablet 00:00: [place] [facility] atorvastati 2019-02 Yes 40mg Take 40 mg Univers n 40 mg 2-18 by mouth. ity of tablet 00:00: [place] [facility] metFORMIN 2019- Yes TAKE 2 Univer s 500 mg 2-17 TABLETS BY ity of tablet 00:00: MOUTH [place] EVERY Medical MORNING Branch AND EVERY EVENING metFORMIN 2019-02 Yes TAKE 2 Univer s 500 mg 2-17 TABLETS BY ity of tablet 00:00: [facility] EVERY Medical MORNING Branch AND EVERY EVENING metFORMIN 2019-02 Yes TAKE 2 Univer s 500 mg 2-17 TABLETS BY ity of tablet 00:00: MOUTH [place] EVERY Medical MORNING Branch AND EVERY EVENING metFORMIN 2019-02 Yes TAKE 2 Univer s 500 mg 2-17 TABLETS BY ity of tablet 00:00: MOUTH [place] EVERY Medical MORNING Branch AND EVERY EVENING metFORMIN 2019-02 Yes TAKE 2 Univer s 500 mg 2-17 TABLETS BY ity of tablet 00:00: MOUTH [place] EVERY Medical MORNING Branch AND EVERY EVENING metFORMIN 2019-02 Yes TAKE 2 Univer s 500 mg 2-17 TABLETS BY ity of tablet 00:00: MOUTH [place] EVERY Medical MORNING Branch AND EVERY EVENING semaglutide 2019-02 Yes 1{tbl} Take 1 Un [place] (RYBELSUS) 1-30 tablet by ity of 3 mg Tab 00:00: mouth. [place] [facility] semaglutide 2019-02 Yes 1{tbl} Take 1 Un [place] (RYBELSUS) 1-30 tablet by ity of 3 mg Tab 00:00: mouth. [place] [facility] semaglutide 2019-02 Yes 1{tbl} Take 1 Un [place] (RYBELSUS) 1-30 tablet by ity of 3 mg Tab 00:00: mouth. [place] [facility] Branch semaglutide 2019-02 Yes 1{tbl} Take 1 Un [place] (RYBELSUS) 1-30 tablet by ity of 3 mg Tab 00:00: mouth. [place] [facility] semaglutide 2019-02 Yes 1{tbl} Take 1 Un [place] (RYBELSUS) 1-30 tablet by ity of 3 mg Tab 00:00: mouth. [place] [facility] semaglutide 2019-02 Yes 1{tbl} Take 1 Un [place] (RYBELSUS) 1-30 tablet by ity of 3 mg Tab 00:00: mouth. [address] Vital Signs Vital Name Observation Time Observation Value Comments Source HEIGHT 2020-08-14 04:00:00 180.3 cm WEIGHT 2020-08-14 04:00:00 124.739 kg HEIGHT 2020-08-14 04:00:00 180.3 cm WEIGHT 2020-08-14 04:00:00 124.739 kg Systolic blood 2020-03-19 06:42:06 137 mm[Hg] Univer sity of pressure [facility] Diastolic blood 2020-03-19 06:42:06 92 mm[Hg] Unive rsity of pressure [place] [facility] Heart rate 2020-03-19 06:42:06 90 /min Universi ty of [place] [facility] Respiratory rate 2020-03-19 06:42:06 17 /min Univ ersity of [place] [facility] Oxygen saturation in 2020-03-19 06:42:06 97 /min University of Arterial blood by [facility] Pulse oximetry Branch Body temperature 2020-03-19 00:47:00 37.22 Nafisa Univ ersity of [place] [facility] Body weight 2020-03-19 00:47:00 122.471 kg Universi ty of [place] [facility] Systolic blood 2020-03-19 00:15:00 126 mm[Hg] Univer sity of pressure [place] [facility] Diastolic blood 2020-03-19 00:15:00 84 mm[Hg] Unive rsity of pressure [place] [facility] Heart rate 2020-03-19 00:15:00 102 /min Universi ty of [place] [facility] Body temperature 2020-03-19 00:15:00 36.83 Nafisa Univ ersity of [place] [facility] Respiratory rate 2020-03-19 00:15:00 20 /min Univ ersity of [place] [facility] Oxygen saturation in 2020-03-19 00:15:00 95 /min University of Arterial blood by [facility] Pulse oximetry Branch Systolic blood 2020-03-15 17:31:00 144 mm[Hg] Univer sity of pressure [place] [facility] Diastolic blood 2020-03-15 17:31:00 88 mm[Hg] Unive rsity of pressure [place] [facility] Heart rate 2020-03-15 17:31:00 86 /min Universi ty of [place] [facility] Body temperature 2020-03-15 17:31:00 36.94 Nafisa Univ ersity of [place] [facility] Respiratory rate 2020-03-15 17:31:00 18 /min Univ ersity of [place] [facility] Oxygen saturation in 2020-03-15 17:31:00 95 /min University of Arterial blood by [facility] Pulse oximetry Branch Body weight 2020-03-15 15:55:00 122.471 kg Universi ty of [place] [facility] Systolic blood 2020-03-15 17:31:00 144 mm[Hg] Univer sity of pressure [place] [facility] Diastolic blood 2020-03-15 17:31:00 88 mm[Hg] Unive rsity of pressure [place] [facility] Heart rate 2020-03-15 17:31:00 86 /min Universi ty of [place] [facility] Body temperature 2020-03-15 17:31:00 36.94 Nafisa Univ ersity of [place] [facility] Respiratory rate 2020-03-15 17:31:00 18 /min Univ ersity of [facility] Oxygen saturation in 2020-03-15 17:31:00 95 /min University of Arterial blood by [facility] Pulse oximetry Branch Body weight 2020-03-15 15:55:00 122.471 kg Universi ty of [facility] Heart rate 2020-03-13 02:30:00 87 /min Universi ty of [facility] Respiratory rate 2020-03-13 02:30:00 25 /min Univ ersity of [facility] Oxygen saturation in 2020-03-13 02:30:00 92 /min University of Arterial blood by [facility] Pulse oximetry Branch Systolic blood 2020-03-13 02:00:00 107 mm[Hg] Univer sity of [facility] Diastolic blood 2020-03-13 02:00:00 60 mm[Hg] Unive rsity of [facility] Body temperature 2020-03-12 23:41:00 38.17 Nafisa Univ ersity of [facility] Body weight 2020-03-12 23:41:00 126.1 kg Universi [facility] Systolic blood 2020-08-18 08:00:00 131 mm[Hg] [facility] Diastolic blood 2020-08-18 08:00:00 78 mm[Hg] [facility] Heart rate 2020-08-18 08:00:00 67 /min [facility] Body temperature 2020-08-18 08:00:00 36.28 Nafisa [facility] Respiratory rate 2020-08-18 08:00:00 18 /min [facility] Oxygen saturation in 2020-08-18 08:00:00 95 /min [facility] Arterial blood by Medical Ce nter Pulse oximetry Body height 2020-08-14 04:00:00 180.3 cm [facility] Body weight 2020-08-14 04:00:00 124.739 kg [facility] BMI 2020-08-14 04:00:00 38.35 kg/m2 [facility] Procedures Procedure Date / Time Performing Clinician Source Performed POCT-GLUCOSE METER 2020-08-18 07:49:00 [facility] BASIC METABOLIC PANEL 2020-08-18 05:24:00 [facility] (7) [facility] CBC W/PLT COUNT & AUTO 2020-08-18 05:20:00 [facility] DIFFERENTIAL [facility] (MANUAL DIFFERENTIAL) 2020-08-18 05:20:00 [facility] CBC W/PLT COUNT & AUTO 2020-08-18 05:20:00 [facility] DIFFERENTIAL [facility] POCT-GLUCOSE METER 2020-08-17 20:14:00 [facility] POCT-GLUCOSE METER 2020-08-17 16:32:00 [facility] POCT-GLUCOSE METER 2020-08-17 11:05:00 [facility] CBC W/PLT COUNT & AUTO 2020-08-17 08:09:00 [facility] DIFFERENTIAL [facility] (MANUAL DIFFERENTIAL) 2020-08-17 08:09:00 [facility] MAGNESIUM 2020-08-17 08:09:00 [facility] BASIC METABOLIC PANEL 2020-08-17 08:09:00 [facility] (7) [facility] CBC W/PLT COUNT & AUTO 2020-08-17 08:09:00 [facility] DIFFERENTIAL [facility] VANCOMYCIN LEVEL, 2020-08-17 05:27:00 Deisy Rangel [facility] POCT-GLUCOSE METER 2020-08-16 21:08:00 [place] [facility] POCT-GLUCOSE METER 2020-08-16 17:01:00 [facility]a[place] [facility] POCT-GLUCOSE METER 2020-08-16 11:49:00 [place] [facility] POCT-GLUCOSE METER 2020-08-16 08:34:00 Aurea [facility] CBC W/PLT COUNT & AUTO 2020-08-16 04:52:00 Onbenigno [facility] DIFFERENTIAL Center BASIC METABOLIC PANEL 2020-08-16 04:52:00 Montezsamy [facility] (7) [place] CBC W/PLT COUNT & AUTO 2020-08-16 04:52:00 Loraine [facility] POCT-GLUCOSE METER 2020-08-15 21:29:00 [facility] VAN[facility]EVEL, 2020-08-15 20:14:00 Micha Sanchez [facility] POCT-GLUCOSE METER 2020-08-15 16:54:00 [facility] POCT-GLUCOSE METER 2020-08-15 11:07:00 [facility] POCT-GLUCOSE METER 2020-08-15 07:22:00 [facility] CBC W/PLT COUNT & AUTO 2020-08-15 04:15:00 Montezsamyalvarez [facility] BASIC METABOLIC PANEL 2020-08-15 04:15:00 [facility] (7[facility] Center CBC W/PLT COUNT & AUTO 2020-08-15 04:15:00 Montezbenigno [facility] POCT-GLUCOSE METER 2020-08-14 20:59:[address] [facility]EN/PELVIS WITH 2020-08-14 18:18:00 Abdelsayed, Darrian [facility] IV CONTRAST Center SARS-COV2/RT-PCR ([facility] 2020-08-14 17:12:00 [facility] POCT-GLUCOSE METER 2020-08-14 16:42:00 [facility] POCT-GLUCOSE METER 2020-08-14 11:10:00 Deisy Rangel [facility] US TESTICULAR (SCROTUM) 2020-08-14 08:55:00 Nuzhat Yadav [facility] POCT-GLUCOSE METER 2020-08-14 07:22:00 [facility] URINE CULTURE 2020-08-14 07:01:00 Loraine [facility] URINALYSIS W/ REFLEX 2020-08-14 07:01:00 Nuzhat Yadav [facility] URINE CULTURE Center BLOOD CULTURE 2020-08-14 06:56:00 Loraine [facility] CBC W/PLT COUNT & AUTO 2020-08-14 05:47:00 Loraine [facility] BASIC METABOLIC PANEL 2020-08-14 05:47:00 Loraine [facility] (7) Center HEMOGLOBIN A1C 2020-08-14 05:47:00 Dottie [facility] PROTHROMBIN TIME/INR 2020-08-14 05:47:[address] [facility] MAGNESIUM 2020-08-14 05:47:00 Loraine [facility] PHOSPHORUS 2020-08-14 05:47:00 Dottie [facility] CBC W/PLT COUNT & AUTO 2020-08-14 05:47:00 Loraine [facility] POCT-GLUCOSE METER 2020-08-14 04:10:00 Loraine [facility] BASIC METABOLIC PANEL 2020-03-19 05:19:00 Radha Oliveira Tammy [facility] (NA, K, CL, CO2, Medical Branch GLUCOSE, BUN, CREATININE, CA) AC VBG + LACTIC ACID 2020-03-19 03:24:00 Radha Oliveira [facility] URINALYSIS 2020-03-19 02:34:00 Radha Oliveira [facility] LIPASE 2020-03-19 01:30:00 Radha Oliveira [facility] MAGNESIUM 2020-03-19 01:30:00 Radha Oliveira [facility] COMP. METABOLIC PANEL 2020-03-19 01:30:00 Tee, K Tammy [facility] ([id number]) [facility] CBC WITH DIFF 2020-03-19 01:29:00 Tee, K [facility] CONSENT/REFUSAL FOR 2020-03-19 00:39:12 [facility] [id number] CONSENT 2020-03-15 06:01:00 Doctor Unassigned, No [facility] Name [facility] XR CHEST 1 VW 2020-03-13 00:48:13 Stefany Guerrero [facility] LIPASE 2020-03-13 00:11:00 Stefany Guerrero [facility] HEPATIC FUNCTION PANEL 2020-03-13 00:11:00 Stefany Guerrero [facility] ([id number]) (ALB,T.PRO,BILI [facility] T,BU/BC,ALT,AST,ALK PHOS) BASIC METABOLIC PANEL 2020-03-13 00:11:00 Stefany Guerrero [facility] (NA, K, CL, CO2, Medical Branch GLUCOSE, BUN, CREATININE, CA) CBC WITH DIFF 2020-03-13 00:11:00 Stefany Guerrero [facility] URINALYSIS 2020-03-13 00:11:00 Stefany Guerrero [facility] ADC,CLC OR LCC ONLY - 2020-03-13 00:11:00 Stefany Guerrero [facility] INFLUENZA A & B DIRECT Medical B ranch ANTIGEN COVID-19 (ID NOW RAPID 2020-03-13 00:11:00 Stefany Guerrero [facility] TESTING) Medical Branch NOTICE OF PRIVACY 2020-03-12 23:39:50 Doctor Unassigned, No [facility] PRACTICES Name Medical Branch CONSENT/REFUSAL FOR 2020-03-12 23:39:34 [facility], [facility] Name [facility] Plan of Care Planned Activity Planned Date Details Comments Source Future Scheduled 2023-03-[address] [facility]:00 (procedure) [code = [facility] 98168627] Future Scheduled 2023-03-[address] [facility] 00:00:00 (procedure) [code = [facility] 46259334] Future Scheduled 2020-11-[address] [facility] (procedure) [code = 19028006] Future Scheduled 2020-11-[address] [facility] 00:[facility]00 [facility] (procedure) [code = 99033297] Future Scheduled 2020-10-18 INFLUENZA VACCINE (#1) [facility] [code = INFLUENZA Medical Ce nter VACCINE (#1)] Future Scheduled 2020-10-18 INFLUENZA VACCINE (#1) [facility] 00:00:00 [code = INFLUENZA Medical Ce nter VACCINE (#1)] Future Scheduled 2020-02-[address] [facility] 00:00:00 (12+) [code = Medical Center DEPRESSION SCREENING (12+)] Future Scheduled 2020-02-[address] [facility] 00:00:00 (12+) [code = [facility] Center DEPRESSION SCREENING (12+)] Future Scheduled 1990-08-10 DTAP/TDAP/TD VACCINES [facility] 00:00:00 (1 - Tdap) [code = Medical C enter DTAP/TDAP/TD VACCINES (1 - Tdap)] Future Scheduled 1990-08-10 DTAP/TDAP/TD VACCINES [facility] 00:00:00 (1 - Tdap) [code = Medical C enter DTAP/TDAP/TD VACCINES (1 - Tdap)] Future Scheduled 1989-08-10 HEPATITIS C [facility]CRE[facility]ING [facility] 00:00[facility]00 [code = HEPATITIS C Medical Center SCREENING] Future Scheduled 1989-08-10 HEPATITIS C [facility]ING [facility] 00:00:00 [code = HEPATITIS C Medical Center SCREENING] Future Scheduled 1983 COVID-19 VACCINE (1) [facility] 00:00:00 [code = COVID-[address] VACCINE (1)] Future Scheduled 1983 COVID-19 VACCINE (1) [facility] 00:00:00 [code = COVID-[address] VACCINE (1)] Future Scheduled 1981-08-[address] DI[address] E[address] EXAM [facility] 00:00:00 [code = DIABETIC EYE Medical Center EXAM] Future Scheduled 1981-08-[address] [facility] 00:[facility]00 examination Medical Center (regime/therapy) [code = 638450866] Future Scheduled 1981-08-10 Urine screening for [facility] 00:00:00 protein (procedure) Medical Center [code = 080540082] Future Scheduled 1981-08-[address] EX[address] [facility] 00:00:00 [code = DIABETIC EYE Medical Center EXAM] Future Scheduled 1981-08-[address] [facility] 00:00:00 examination Medical Center (regime/therapy) [code = 757936298] Future Scheduled 1981-08-10 Urine screening for [facility] 00:00:00 protein (procedure) Medical Center [code = 106655475] Future Scheduled 1977-08-[address] [facility] Test 00:00:00 0-64 YRS (1 of 2 - Medical C enter PPSV23) [code = PNEUMOCOCCAL VACCINE 0-64 YRS (1 of 2 - PPSV23)] Future Scheduled 1977-08-[address] [facility] 00:00:00 0-64 YRS (1 of 2 - Medical C enter PPSV23) [code = PNEUMOCOCCAL VACCINE 0-64 YRS (1 of 2 - PPSV23)] Future Scheduled [address] [facility] 00:00:00 malignant neoplasm of Medica l Center colon (procedure) [code = 546899480] Future Scheduled [address] [facility] 00:00:00 [facility] colon (procedure) [code = 360925772] Encounters Start End Encounter Admission Attending Care Care Encounter Source Date/Time Date/Time Type Type Clinicians Facility Department ID 2021-03-14 [facility] [id number] Common 13:31:16 [id number] [facility] 2021-03-14 Outpatient Rashaun [facility] [id number] Common 13:16:25 Avnee [id number] [facility] 2020-12-16 Emergency [facility] [id number] Univers 22:17:29 [facility] 2020-12-16 Emergency [facility] [id number] Univers 20:46:22 [facility] 2020-08-14 Inpatient ER LORAINE [facility] Urology [id number] [facility] 03:51:00 NUZHAT 2020-12-20 2020-12-20 Outpatient Baum_L [facility] [id number] [place] 11:25:00 11:25:00 [id number] [facility] 2020-08-14 2020-08-18 [facility] [id number] 03:51:00 11:45:00 Encounter Deisy Rangel [facility] 2020-08-14 2020-08-14 Travel [facility] [id number] [facility] 00[facility]00 [facility] 2020-08-07 2020-08-07 Outpatient [facility] [id number] Common 00:00:00 00:00:00 [facility] 2020-08-04 2020-08-04 Outpatient [facility] [id number] Common 00:00:00 00:00:00 [facility] 2020-03-18 2020-03-19 Emergency Tee Radha [facility] [id number] Univers 18:44:00 00:48:00 Tammy Pope 350.1.13.10 jose guadalupe Zavaleta 4.2.7.2.686 [facility] [phone] [facility] 084 Branch 2020-03-18 2020-03-18 Outpatient R AQUILINO [facility] [id number] Univers 18:30:00 18:30:00 [facility] 2020-03-18 2020-03-18 Nurse Nurse, [facility] 1.2 .[id number] Univers 18:29:02 18:29:11 Visit Aquilino [facility] [id number] [facility] 4.2.7.2.686 [facility] [phone] De alessandro triplett [address] [employer] [address] [employer] 2020-03-18 2020-03-18 Outpatient R [facility] [id number] Univers 17:40:00 17:40:00 [id number] ity [facility] 2020-03-18 2020-03-18 Outpatient R AQUILINO [facility] [id number] Univers 17:40:00 17:40:00 SAUL [facility] 2020-03-15 2020-03-15 Nurse Therapy, [facility] Covid Infusion [facility] [id number] Univers 09:44:59 18:56:55 Visit Stefany Guerrero SPECIALTY [id number] ity of CARE 4.2.7.2.686 [facility] CENTER AT [phone] De alessandro ALMAGUERY 053 [facility] 2020-03-15 2020-03-15 Nurse Therapy, [facility] [id number] 09:44:59 18:56:55 Visit [facility] Covid SPECIALTY 350.1.13.10 Infusion CARE 4.2.7.2.686 CENTER AT [id number] [place] [address] [place] 2020-03-15 2020-03-15 Outpatient R [facility] [id number] Univers 09:30:00 09:30:00 [id number] [facility] 2020-03-15 2020-03-15 Outpatient R CESAR [facility] [id number] Univers 09:30:00 09:30:00 [facility] 2020-03-15 2020-03-15 Orders Doctor DARRIAN [id number] Univers 00:00:00 00:00:00 Only Unassigned, JUAN JOSE 350.1.13.10 ity [place] [facility] 4.2.[address] [facility] [id number] [facility] 009 Branch 2020-03-15 2020-03-15 Orders Doctor DARRIAN [id number] 00:00:00 00:00:00 Only Unassigned, JUAN JOSE 350.1.13.10 [place] [facility] 4.2.7.2.686 [id number] 009 2020-03-14 2020-03-14 Outpatient R CESAR [facility] [id number] Univers 09:00:00 09:00:00 STEFANY laurita [facility] 2020-03-12 2020-03-[address] [facility] 1.2.840 .114 [id number] Univers 17:49:00 21:01:00 Stefany Guerrero 350.1.13.10 [facility] 4.2.7.2.686 [facility] [id number] [facility] 084 Branch 2020-03-12 2020-03-12 Emergency X EDVIN, [facility] ERT [id number] Univers 17:32:00 17:32:00 [facility] Results Test Description Test Time Test Comments Results Result Comments Source HEPATITIS C ANTIBODY 2021-08-27 10:38:58 Test Item Value Reference Range Interpretation Comme nts HEPATITIS C ANTIBODY (BEAKER) (test code = 367) Nonreactive Nonrea ctive Information Developer ID - DBBlood Culture - Routine (Left Venipuncture)2020-08-19 10:01:00 Test Item Value Reference Range Interpretation Comments Result (test code = No growth in 5 days 6463-4) [facility]2020-08-19 10:01:00 Test Item Value Reference Range Interpretation Comments Result (test code = No growth in 5 days 6463-4) [facility] [id number] 10:01:00 Test Item Value Reference Range Interpretation Comments CULTURE (BEAKER) (test No growth in 5 days code = 1095) BLOOD [id number] 10:01:00 Test Item Value Reference Range Interpretation Comments CULTURE (BEAKER) (test No growth in 5 days code = 1095) POC-Glucose [id number] 08:00:00 Test Item Value Reference Range Interpretation Comments POC-Glucose Meter (test 249 mg/dL 70-110 H : [facility] 1538[facility] [address] [place] 770828: Information Developer/Techni adrian ID = [id number] for Estevan Bright Lab Interpretation (test Abnormal code = 41890-9) [facility] [id number] 08:00:00 Test Item Value Reference Range Interpretation Comments POC-Glucose Meter (test 249 mg/dL 70-110 H : TE STED AT [facility] code = 1538) [address] [place] 770828: Information Developer/Techni adrian ID = [id number] for Estevan Bright n Lab Interpretation (test Abnormal code = 06046-7) [facility] [id number] 08:00:00 Test Item Value Reference Range Interpretation Comments POC-GLUCOSE METER 249 mg/dL 70-110 H : TESTED A T [facility] 1317 (BEAKER) (test code [facility], = 1538) [facility] 77 478: Information Developer/Techni adrian ID = [id number] for Ventura Aguilar Manual [id number] 05:55:00 Test Item Value Reference Range Interpretation Comments % Neutros (manual) (test 33 % code = 1359) % Lymphs (manual) (test 55 % code = 1360) % Monos (manual) (test 8 % code = 1361) % Eos (manual) (test 4 % code = 1362) # Neutros (manual) (test 1.58 See_Comment L [A utomated message] code = 1365) The system [employer] generated this result transmitted ref erence range: 1.80 - 8 .00 K/L. The refe rence range was not u sed to interpret this result as normal/abnor mal. # Lymphs (manual) (test 2.64 See_Comment [Au tomated message] code = 1366) The system [employer] generated this result transmitted ref erence range: 1.48 - 4 .50 K/L. The refe rence range was not u sed to interpret this result as normal/abnor mal. # Monos (manual) (test 0.38 See_Comment [Aut omated message] code = 1367) The system [employer] generated this result transmitted ref erence range: 0.00 - 1 .30 K/L. The refe rence range was not u sed to interpret this result as normal/abnor mal. # Eos (manual) (test 0.19 See_Comment [Autom ated message] code = 1368) The system [employer] generated this result transmitted ref erence range: 0.00 - 0 .50 K/L. The refe rence range was not u sed to interpret this result as normal/abnor mal. Total Counted (test code 100 = 1351) WBC Morphology (test Normal code = 487) Platelet Morphology Normal (test code = 486) RBC Morphology (test Normal code = 762) Lab Interpretation (test Abnormal code = 89635-6) [facility] + automated [id number] 05:55:00 Test Item Value Reference Range Interpretation Comments WBC (test code = 6690-2) 4.8 See_Comment [A utomated message] The system [employer] generated this result transmitted ref erence range: 4.0 - 10 .0 K/L. The refe rence range was not u sed to interpret this result as normal/abnor mal. RBC (test code = 789-8) 4.22 See_Comment [Au tomated message] The system [employer] generated this result transmitted ref erence range: 4.20 - 5 .80 M/L. The refe rence range was not u sed to interpret this result as normal/abnor mal. MCHC (test code = 786-4) 33.5 See_Comment L [A utomated message] The system [employer] generated this result transmitted ref erence range: 32.0 - 3 6.0 GM/DL. The refe rence range was not u sed to interpret this result as normal/abnor mal. Hematocrit (test code = 37.0 % 36.0-50.0 4544-3) MCV (test code = 787-2) 87.7 fL 82.0-99.0 MCH (test code = 785-6) 29.4 pg 27.0-33.0 RDW (test code = 788-0) 13.4 % 12.0-15.0 Platelets (test code = 339 See_Comment [Aut omated message] 777-3) The system [employer] generated this result transmitted ref erence range: 150 - 43 0 K/CU MM. The referen ce range was not u sed to interpret this result as normal/abnor mal. MPV (test code = 10.3 fL 6.0-11.5 81573-9) nRBC (test code = 413) 0 See_Comment [Aut omated message] The system [employer] generated this result transmitted ref erence range: 0 - 0 /1 00 WBC. The refere nce range was not u sed to interpret this result as normal/abnor mal. Lab Interpretation (test Abnormal code = 14347-3) [facility] [id number] 05:55:00 Test Item Value Reference Range Interpretation Comments % Neutros (manual) (test 33 % code = 1359) % Lymphs (manual) (test 55 % code = 1360) % Monos (manual) (test 8 % code = 1361) % Eos (manual) (test 4 % code = 1362) # Neutros (manual) (test 1.58 See_Comment L [A utomated message] code = 1365) The system [employer] generated this result transmitted ref erence range: 1.80 - 8 .00 K/L. The refe rence range was not u sed to interpret this result as normal/abnor mal. # Lymphs (manual) (test 2.64 See_Comment [Au tomated message] code = 1366) The system [employer] generated this result transmitted ref erence range: 1.48 - 4 .50 K/L. The refe rence range was not u sed to interpret this result as normal/abnor mal. # Monos (manual) (test 0.38 See_Comment [Aut omated message] code = 1367) The system [employer] generated this result transmitted ref erence range: 0.00 - 1 .30 K/L. The refe rence range was not u sed to interpret this result as normal/abnor mal. # Eos (manual) (test 0.19 See_Comment [Autom ated message] code = 1368) The system [employer] generated this result transmitted ref erence range: 0.00 - 0 .50 K/L. The refe rence range was not u sed to interpret this result as normal/abnor mal. Total Counted (test code 100 = 1351) WBC Morphology (test Normal code = 487) Platelet Morphology Normal (test code = 486) RBC Morphology (test Normal code = 762) Lab Interpretation (test Abnormal code = 54630-4) [facility] with platelet count + automated [id number] 05:55:00 Test Item Value Reference Range Interpretation Comments WBC (test code = 6690-2) 4.8 See_Comment [A utomated message] The system [employer] generated this result transmitted ref erence range: 4.0 - 10 .0 K/L. The refe rence range was not u sed to interpret this result as normal/abnor mal. RBC (test code = 789-8) 4.22 See_Comment [Au tomated message] The system [employer] generated this result transmitted ref erence range: 4.20 - 5 .80 M/L. The refe rence range was not u sed to interpret this result as normal/abnor mal. MCHC (test code = 786-4) 33.5 See_Comment L [A utomated message] The system [employer] generated this result transmitted ref erence range: 32.0 - 3 6.0 GM/DL. The refe rence range was not u sed to interpret this result as normal/abnor mal. Hematocrit (test code = 37.0 % 36.0-50.0 4544-3) MCV (test code = 787-2) 87.7 fL 82.0-99.0 MCH (test code = 785-6) 29.4 pg 27.0-33.0 RDW (test code = 788-0) 13.4 % 12.0-15.0 Platelets (test code = 339 See_Comment [Aut omated message] 777-3) The system [employer] generated this result transmitted ref erence range: 150 - 43 0 K/CU MM. The referen ce range was not u sed to interpret this result as normal/abnor mal. MPV (test code = 10.3 fL 6.0-11.5 60999-6) nRBC (test code = 413) 0 See_Comment [Aut omated message] The system [employer] generated this result transmitted ref erence range: 0 - 0 /1 00 WBC. The refere nce range was not u sed to interpret this result as normal/abnor mal. Lab Interpretation (test Abnormal code = 86985-4) [facility] W/PLT COUNT & AUTO [id number] 05:55:00 Test Item Value Reference Range Interpretation Comments WHITE BLOOD CELL COUNT (BEAKER) 4.8 K/ L 4.0-10.0 (test code = 775) RED BLOOD CELL COUNT (BEAKER) 4.22 M/ L 4.20-5.80 (test code = 761) HEMOGLOBIN (BEAKER) (test code = 12.4 GM/DL 13.0-16.8 L 410) HEMATOCRIT (BEAKER) (test code = 37.0 % 36.0-50.0 411) MEAN CORPUSCULAR VOLUME (BEAKER) 87.7 fL 82.0-99.0 (test code = 753) MEAN CORPUSCULAR HEMOGLOBIN 29.4 pg 27.0-33.0 (BEAKER) (test code = 751) MEAN CORPUSCULAR HEMOGLOBIN CONC 33.5 GM/DL 32.0-36.0 (BEAKER) (test code = 752) RED CELL DISTRIBUTION WIDTH 13.4 % 12.0-15.0 (BEAKER) (test code = 412) PLATELET COUNT (BEAKER) (test 339 K/CU MM 150-430 code = 756) MEAN PLATELET VOLUME (BEAKER) 10.3 fL 6.0-11.5 (test code = 754) NUCLEATED RED BLOOD CELLS 0 /100 WBC 0-0 (BEAKER) (test code = 413) (MANUAL DIFFERENTIAL)2020-08-18 05:55:00 Test Item Value Reference Range Interpretation Comments NEUTROPHILS - REL (DIFF) (BEAKER) 33 % (test code = 1359) LYMPHOCYTES - REL (DIFF) (BEAKER) 55 % (test code = 1360) MONOCYTES - REL (DIFF) (BEAKER) 8 % (test code = 1361) EOSINOPHILS - REL (DIFF) (BEAKER) 4 % (test code = 1362) NEUTROPHILS - ABS (DIFF) (BEAKER) 1.58 K/ L 1.80-8.00 L (test code = 1365) LYMPHOCYTES - ABS (DIFF) (BEAKER) 2.64 K/ L 1.48-4.50 (test code = 1366) MONOCYTES - ABS (DIFF) (BEAKER) 0.38 K/ L 0.00-1.30 (test code = 1367) EOSINOPHILS - ABS (DIFF) (BEAKER) 0.19 K/ L 0.00-0.50 (test code = 1368) TOTAL COUNTED (BEAKER) (test code = 100 1351) WBC MORPHOLOGY (BEAKER) (test code Normal = 487) PLT MORPHOLOGY (BEAKER) (test code Normal = 486) RBC MORPHOLOGY (BEAKER) (test code Normal = 762) Basic Metabolic [id number] 05:36:00 Test Item Value Reference Range Interpretation Comments Sodium (test code = 138 meq/L 865-014 8327-2) Potassium (test code = 3.9 meq/L 3.6-5.5 2823-3) Chloride (test code = 105 meq/L 98-106 2075-0) CO2 (test code = 22 meq/L 20-29 2028-9) BUN (test code = 4 mg/dL 10-26 L 3094-0) Creatinine (test code 0.91 mg/dL 0.50-1.20 = 2160-0) Glucose (test code = 285 mg/dL 70-110 H 2345-7) Calcium (test code = 9.7 mg/dL 8.5-10.5 21902-8) EGFR (test code = 107 mL/min/1.73 [place] [address]-4) NOT ACCURATE CREATININE CLEARANCE IN PREDICTING GLOMERULAR FILTRATION RATE . ESTIMATED GFR I S NOT APPLICABLE FOR DIALYSIS PATIENTS. ЕЛЕНА (test code = ЕЛЕНА) Information Developer ID - [id number] ID - [id number] ID - [id number] ID - [id number] ID - [id number] ID - [id number] ID - [id number] ID - agfe38Vrpmnoht ID - qktu31Thjcsihg ID - [id number] ID - cmpy10Pheohtvh ID - [id number] ID - [id number] Lab Interpretation Abnormal (test code = 88689-6) [facility] Metabolic [id number] 05:36:00 Test Item Value Reference Range Interpretation Comments Sodium (test code = 138 meq/L 217-961 4810-2) Potassium (test code = 3.9 meq/L 3.6-5.5 2823-3) Chloride (test code = 105 meq/L 98-106 2075-0) CO2 (test code = 22 meq/L 20-29 2028-9) BUN (test code = 4 mg/dL 10-26 L 3094-0) Creatinine (test code 0.91 mg/dL 0.50-1.20 = 2160-0) Glucose (test code = 285 mg/dL 70-110 H 2345-7) Calcium (test code = 9.7 mg/dL 8.5-10.5 99916-5) EGFR (test code = 107 mL/min/1.73 [place] [address]-3) NOT ACCURATE CREATININE CLEARANCE IN PREDICTING GLOMERULAR FILTRATION RATE . ESTIMATED GFR I S NOT APPLICABLE FOR DIALYSIS PATIENTS. ЕЛЕНА (test code = ЕЛЕНА) Information Developer ID - [id number] ID - [id number] ID - [id number] ID - [id number] ID - [id number] ID - [id number] ID - jmua47Lxzyliob ID - ozbj58Toxlvxgf ID - sjgg69Rvhchkoz ID - inrh84Ggfzgscw ID - [id number] ID - [id number] ID - [id number] Lab Interpretation Abnormal (test code = 38585-7) [facility] METABOLIC [id number] 05:36:00 Test Item Value Reference Range Interpretation Comments SODIUM (BEAKER) 138 meq/L 135-148 (test code = 381) POTASSIUM (BEAKER) 3.9 meq/L 3.6-5.5 (test code = 379) CHLORIDE (BEAKER) 105 meq/L 98-106 (test code = 382) CO2 (BEAKER) (test 22 meq/L 20-29 code = 355) BLOOD UREA NITROGEN 4 mg/dL 10-26 L (BEAKER) (test code = 354) CREATININE (BEAKER) 0.91 mg/dL 0.50-1.20 (test code = 358) GLUCOSE RANDOM 285 mg/dL 70-110 H (BEAKER) (test code = 652) CALCIUM (BEAKER) 9.7 mg/dL 8.5-10.5 (test code = 697) EGFR (BEAKER) (test 107 mL/min/1.73 ESTIM ATED GFR IS code = 1092) sq m NOT ACCURATE CREATININE CLEARANCE IN PREDICTING GLOMERULAR FILTRATION RATE . ESTIMATED GFR I S NOT APPLICABLE FOR DIALYSIS PATIEN TS. Information Developer ID - [id number] ID - [id number] ID - [id number] ID - [id number] ID - aeyr52Xqmvmoif ID - xcup70Pztaggzm ID - gpus03Uolsuzlb ID - jocj75Cvwnmebk ID - tpem31Juiezgkr ID - qbho94Zchmebwz ID - [id number] ID - ikuk14Kpfhfaoa ID - [id number]-EDDEEOX [id number] 20:26:00 Test Item Value Reference Range Interpretation Comments POC-GLUCOSE METER 183 mg/dL 70-110 H : TESTED A T [facility] (BEAKER) (test code [facility], = 1538) [place] [id number]: Information Developer/Techni adrian ID = [id number] for Halima Neff POCT-GLUCOSE [id number] 16:44:00 Test Item Value Reference Range Interpretation Comments POC-GLUCOSE METER 196 mg/dL 70-110 H : TESTED A T [facility] (BEAKER) (test code [address], = 1538) [place] [address]: Information Developer/Techni adrian ID = [id number] for Kaylie kaylenmontezAlicia POCT-GLUCOSE [id number] 11:16:00 Test Item Value Reference Range Interpretation Comments POC-GLUCOSE METER 320 mg/dL 70-110 H : TESTED A T [facility] (BEAKER) (test code [address], = 1538) [facility] 77 478: Information Developer/Techni adrian ID = [id number] for Alicia Barcenas CBC W/PLT COUNT & AUTO [id number] 09:00:00 Test Item Value Reference Range Interpretation Comments WHITE BLOOD CELL COUNT (BEAKER) 4.4 K/ L 4.0-10.0 (test code = 775) RED BLOOD CELL COUNT (BEAKER) 4.20 M/ L 4.20-5.80 (test code = 761) HEMOGLOBIN (BEAKER) (test code = 12.1 GM/DL 13.0-16.8 L 410) HEMATOCRIT (BEAKER) (test code = 36.7 % 36.0-50.0 411) MEAN CORPUSCULAR VOLUME (BEAKER) 87.4 fL 82.0-99.0 (test code = 753) MEAN CORPUSCULAR HEMOGLOBIN 28.8 pg 27.0-33.0 (BEAKER) (test code = 751) MEAN CORPUSCULAR HEMOGLOBIN CONC 33.0 GM/DL 32.0-36.0 (BEAKER) (test code = 752) RED CELL DISTRIBUTION WIDTH 13.3 % 12.0-15.0 (BEAKER) (test code = 412) PLATELET COUNT (BEAKER) (test 348 K/CU MM 150-430 code = 756) MEAN PLATELET VOLUME (BEAKER) 10.3 fL 6.0-11.5 (test code = 754) NUCLEATED RED BLOOD CELLS 0 /100 WBC 0-0 (BEAKER) (test code = 413) (MANUAL DIFFERENTIAL)2020-08-17 09:00:00 Test Item Value Reference Range Interpretation Comments NEUTROPHILS - REL (DIFF) (BEAKER) 35 % (test code = 1359) LYMPHOCYTES - REL (DIFF) (BEAKER) 50 % (test code = 1360) MONOCYTES - REL (DIFF) (BEAKER) 8 % (test code = 1361) EOSINOPHILS - REL (DIFF) (BEAKER) 7 % (test code = 1362) NEUTROPHILS - ABS (DIFF) (BEAKER) 1.54 K/ L 1.80-8.00 L (test code = 1365) LYMPHOCYTES - ABS (DIFF) (BEAKER) 2.20 K/ L 1.48-4.50 (test code = 1366) MONOCYTES - ABS (DIFF) (BEAKER) 0.35 K/ L 0.00-1.30 (test code = 1367) EOSINOPHILS - ABS (DIFF) (BEAKER) 0.31 K/ L 0.00-0.50 (test code = 1368) TOTAL COUNTED (BEAKER) (test code = 100 1351) WBC MORPHOLOGY (BEAKER) (test code Normal = 487) PLT MORPHOLOGY (BEAKER) (test code Normal = 486) RBC MORPHOLOGY (BEAKER) (test code Normal = 762) [id number] 08:35:00 Test Item Value Reference Range Interpretation Comments Magnesium (test code = 1.9 mg/dL 1.5-3.0 23526-9) ЕЛЕНА (test code = ЕЛЕНА) Information Developer ID - [id number] ID - [id number] ID - [id number] ID - [id number] Lab Interpretation (test Normal code = 16641-9) [facility]00 Test Item Value Reference Range Interpretation Comments Magnesium (test code = 1.9 mg/dL 1.5-3.0 20045-0) ЕЛЕНА (test code = ЕЛЕНА) Information Developer ID - [id number] ID - [id number] ID - [id number] ID - [id number] Lab Interpretation (test Normal code = 34572-4) [facility] 08:35:00 Test Item Value Reference Range Interpretation Comments MAGNESIUM (BEAKER) (test code = 1.9 mg/dL 1.5-3.0 627) Information Developer ID - [id number] ID - [id number] ID - [id number] ID - [id number] METABOLIC [id number] 08:34:00 Test Item Value Reference Range Interpretation Comments SODIUM (BEAKER) 138 meq/L 135-148 (test code = 381) POTASSIUM (BEAKER) 3.5 meq/L 3.6-5.5 L (test code = 379) CHLORIDE (BEAKER) 105 meq/L 98-106 (test code = 382) CO2 (BEAKER) (test 21 meq/L 20-29 code = 355) BLOOD UREA NITROGEN 5 mg/dL 10-26 L (BEAKER) (test code = 354) CREATININE (BEAKER) 0.81 mg/dL 0.50-1.20 (test code = 358) GLUCOSE RANDOM 244 mg/dL 70-110 H (BEAKER) (test code = 652) CALCIUM (BEAKER) 9.4 mg/dL 8.5-10.5 (test code = 697) EGFR (BEAKER) (test 123 mL/min/1.73 ESTIM ATED GFR IS code = 1092) sq m NOT ACCURATE CREATININE CLEARANCE IN PREDICTING GLOMERULAR FILTRATION RATE . ESTIMATED GFR I S NOT APPLICABLE FOR DIALYSIS PATIEN TS. Information Developer ID - [id number] ID - [id number] ID - [id number] ID - [id number] ID - [id number] ID - [id number] ID - [id number] ID - [id number] ID - [id number] ID - [id number] Vancomycin level, [id number] 06:00:00 Test Item Value Reference Range Interpretation Comments Vancomycin Tr (test code = 11.1 ug/mL 10.0-20.0 4092-3) ЕЛЕНА (test code = ЕЛЕНА) Information Developer ID - [id number] Lab Interpretation (test Normal code = 38149-9) [facility]com[facility], [id number] 06:00:00 Test Item Value Reference Range Interpretation Comments Vancomycin Tr (test code = 11.1 ug/mL 10.0-20.0 4092-3) ЕЛЕНА (test code = ЕЛЕНА) Information Developer ID - [id number] Lab Interpretation (test Normal code = 54572-3) [facility] HospitalVANCOMYCIN LEVEL, [id number] 06:00:00 Test Item Value Reference Range Interpretation Comments VANCOMYCIN TROUGH (BEAKER) (test 11.1 ug/mL 10.0-20.0 code = 522) Information Developer ID - [id number] [id number] 21:21:00 Test Item Value Reference Range Interpretation Comments POC-GLUCOSE METER 270 mg/dL 70-110 H : TESTED A T [facility] [address] (BEAKER) (test code [address], = 1538) [place] [id number]: Information Developer/Techni adrian ID = [id number] for sammi Peter POCT-GLUCOSE [id number] 17:13:00 Test Item Value Reference Range Interpretation Comments POC-GLUCOSE METER 266 mg/dL 70-110 H : TESTED A T [facility] [address] (BEAKER) (test code [address], = 1538) [place] 3[address]28: Information Developer/Techni adrian ID = [id number] for Garrett h, Nilam POCT-GLUCOSE [id number] 12:01:00 Test Item Value Reference Range Interpretation Comments POC-GLUCOSE METER 283 mg/dL 70-110 H : TESTED A T [facility] [address] (BEAKER) (test code [address], = 1538) [place] [address]13528: Information Developer/Techni adrian ID = [id number] for Garrett h, Nilam POCT-GLUCOSE [id number] 08:47:00 Test Item Value Reference Range Interpretation Comments POC-GLUCOSE METER 253 mg/dL 70-110 H : TESTED A T [facility] [address] (BEAKER) (test code [address], = 1538) [place] 313528: Information Developer/Techni adrian ID = [id number] for Nury Ying Urine [id number] 08:39:00 Test Item Value Reference Range Interpretation Comments Result (test code = 6463-4) No [facility] [id number] 08:39:00 Test Item Value Reference Range Interpretation Comments Result (test code = 6463-4) No growth [facility]OL[facility] [id number] 06:09:00 Test Item Value Reference Range Interpretation Comments SODIUM (BEAKER) 139 meq/L 135-148 (test code = 381) POTASSIUM (BEAKER) 3.6 meq/L 3.6-5.5 (test code = 379) CHLORIDE (BEAKER) 105 meq/L 98-106 (test code = 382) CO2 (BEAKER) (test 23 meq/L 20-29 code = 355) BLOOD UREA NITROGEN 7 mg/dL 10-26 L (BEAKER) (test code = 354) CREATININE (BEAKER) 0.85 mg/dL 0.50-1.20 (test code = 358) GLUCOSE RANDOM 283 mg/dL 70-110 H (BEAKER) (test code = 652) CALCIUM (BEAKER) 9.0 mg/dL 8.5-10.5 (test code = 697) EGFR (BEAKER) (test 116 mL/min/1.73 ESTIM ATED GFR IS code = 1092) sq m NOT ACCURATE CREATININE CLEARANCE IN PREDICTING GLOMERULAR FILTRATION RATE . ESTIMATED GFR I S NOT APPLICABLE FOR DIALYSIS PATIEN TS. Information Developer ID - LITOOperator ID - LITOOperator ID - LITOOperator ID - LITOOperator ID - LITOOperator ID - LITOOperator ID - LITOOperator ID - LITOOperator ID - LITOOperator ID - LITOOperator ID - LITOOperator ID - LITOOperator ID - LITOCBC W/PLT COUNT & AUTO [id number] 05:40:00 Test Item Value Reference Range Interpretation Comments WHITE BLOOD CELL COUNT (BEAKER) 4.6 K/ L 4.0-10.0 (test code = 775) RED BLOOD CELL COUNT (BEAKER) 4.34 M/ L 4.20-5.80 (test code = 761) HEMOGLOBIN (BEAKER) (test code = 12.5 GM/DL 13.0-16.8 L 410) HEMATOCRIT (BEAKER) (test code = 37.9 % 36.0-50.0 411) MEAN CORPUSCULAR VOLUME (BEAKER) 87.3 fL 82.0-99.0 (test code = 753) MEAN CORPUSCULAR HEMOGLOBIN 28.8 pg 27.0-33.0 (BEAKER) (test code = 751) MEAN CORPUSCULAR HEMOGLOBIN CONC 33.0 GM/DL 32.0-36.0 (BEAKER) (test code = 752) RED CELL DISTRIBUTION WIDTH 13.2 % 12.0-15.0 (BEAKER) (test code = 412) PLATELET COUNT (BEAKER) (test 358 K/CU MM 150-430 code = 756) MEAN PLATELET VOLUME (BEAKER) 10.9 fL 6.0-11.5 (test code = 754) NUCLEATED RED BLOOD CELLS 0 /100 WBC 0-0 (BEAKER) (test code = 413) NEUTROPHILS RELATIVE PERCENT 37 % (BEAKER) (test code = 429) LYMPHOCYTES RELATIVE PERCENT 48 % (BEAKER) (test code = 430) MONOCYTES RELATIVE PERCENT 10 % (BEAKER) (test code = 431) EOSINOPHILS RELATIVE PERCENT 4 % (BEAKER) (test code = 432) BASOPHILS RELATIVE PERCENT 1 % (BEAKER) (test code = 437) NEUTROPHILS ABSOLUTE COUNT 1.68 K/ L 1.80-8.00 L (BEAKER) (test code = 670) LYMPHOCYTES ABSOLUTE COUNT 2.22 K/ L 1.48-4.50 (BEAKER) (test code = 414) MONOCYTES ABSOLUTE COUNT (BEAKER) 0.46 K/ L 0.00-1.30 (test code = 415) EOSINOPHILS ABSOLUTE COUNT 0.16 K/ L 0.00-0.50 (BEAKER) (test code = 416) BASOPHILS ABSOLUTE COUNT (BEAKER) 0.06 K/ L 0.00-0.20 (test code = 417) IMMATURE GRANULOCYTES-RELATIVE 0 % 0-0 PERCENT (BEAKER) (test code = 2801) POCT-GLUCOSE [id number] 21:41:00 Test Item Value Reference Range Interpretation Comments POC-GLUCOSE METER 270 mg/dL 70-110 H : TESTED A T [facility] 1317 ([facility] (test code [facility], = 1538) [facility] 77 928: Information Developer/Techni adrian ID = [id number] for Lorenza Castanon VANCOMYCIN LEVEL, [id number] 20:39:00 Test Item Value Reference Range Interpretation Comments VANCOMYCIN TROUGH (BEAKER) (test 6.1 ug/mL 10.0-20.0 L code = 522) Information Developer ID - [id number] 17:05:00 Test Item Value Reference Range Interpretation Comments POC-GLUCOSE METER 295 mg/dL 70-110 H : Notified RN/MD: TESTED (BEAKER) (test code AT [facility] [address] = 1538) [facility] [address]: Information Developer/Techni adrian ID = [id number] for Thak er, Nikitaben CT, [id number] 15:49:00Unlisted Reason for Exam - Click Yes and Enter Reason Below->YesConcern for groin abscessUnlistedReason for Exam->Concern for right groin \\T\\ perineal abscess vs nec fascWill this procedure require oral contrast?->NoCH[facility] ROSENTHAL : 1970 Sex: MFINAL REPORT TECHNIQUE: CT of the abdomen and pelvis WITH intravenous contrast and WITHOUT oral contrast. Dose modulation, iterative reconstruction, and/or weight-basedadjustment of the mA/kV was utilized to reduce the radiation dose to as low as reasonably achievable. INDICATION: Unlisted Reason for ExamConcern for right groin \\T\\ perineal abscess vs nec fasc. COMPARISON: None. FINDINGS: LOWER THORAX: Unremarkable. HEPATOBILIARY: The liver is decreased in attenuation with sparing around the gallbladder. No focal hepatic lesions. Hyperdense material layers in the gallbladder. No biliary ductal dilatation.SPLEEN: No splenomegaly.PANCREAS: No focal masses or ductal dilatation. ADRENALS: No adrenal nodules.KIDNEYS/URETERS: No hydronephrosis, stones, or masses.PELVIC ORGANS/BLADDER: Mild diffuse thickening of the urinary bladder wall. PERITONEUM/RETROPERITONEUM: Nofree air or fluid. Moderate sized, fat filled periumbilical hernia. LYMPH NODES: No lymphadenopathy.VESSELS: Circumaortic left renal vein. Moderate aortoiliac calcification. There is mild atheromatous plaque in the left common iliac artery. GI TRACT: There is a fat density structure adjacent to the left colon as seen on axial image 43. The appendix is normal. Moderate diverticulosis of the sigmoid colon. There is some fat stranding around the sigmoid colon BONES AND SOFT TISSUES: Moderate degenerative changes of both hips. Moderate degenerative changes of the visualized spine. The entire perineum is not visualized. There are inflammatory changes which are greater in the right gluteal cleft within an the left. No definite gas is visualized. There is mild thickening of the partially visualized scrotal wall. IMPRESSION: 1.The entire perineum is not visualized. However, the partially visualized right gluteal cleft and scrotum have inflammatory changes without gas to suggest necrotizing fasciitis. No fluid collection is visualized. 2.There is moderate diverticulosis of the sigmoid colon. There is some fat stranding in the adjacent mesentery but no definite single, inflamed diverticulum. The changes are likely due to either chronic inflammation or a prior episode of acute diverticulitis. Acute diverticulitis is possible but considered less likely. 3.The diffuse thickening of the urinary bladder wall is nonspecific and could be due to underdistention, chronic bladder outlet obstruction or cystitis. 4.There is an age-indeterminate, torsed epiploic appendage adjacent to the left colon in the leftupper quadrant. 5.Cholelithiasis and/or sludge in the gallbladder without acute cholecystitis. 6.Diffuse fatty infiltration of the liver. Signed: Dennis Huerta MDRort Verified Date/Time: 08/15/2020 15:49:43 Reading Location: [facility] Diagnostic Imaging Reading Room - [place] [address] POCT-GLUCOSE [id number] 11:18:00 Test Item Value Reference Range Interpretation Comments POC-GLUCOSE METER 288 mg/dL 70-110 H : Notified RN/MD: TESTED ([facility]) (test code AT [address] = 1538) [facility] [address]: Information Developer/Techni adrian ID = [id number] for Thak er, [place] POCT-GLUCOSE [id number] 07:33:00 Test Item Value Reference Range Interpretation Comments POC-GLUCOSE METER 295 mg/dL 70-110 H : Notified RN/MD: [facility] (test code AT [facility] [address] [place] [address] = 1538) [facility] [address]: Information Developer/Techni adrian ID = [id number] for Thak er, Nikitaben BASIC METABOLIC [id number] 05:52:00 Test Item Value Reference Range Interpretation Comments SODIUM (BEAKER) 135 meq/L 135-148 (test code = 381) POTASSIUM (BEAKER) 3.7 meq/L 3.6-5.5 (test code = 379) CHLORIDE (BEAKER) 102 meq/L 98-106 (test code = 382) CO2 (BEAKER) (test 22 meq/L 20-29 code = 355) BLOOD UREA NITROGEN 8 mg/dL 10-26 L (BEAKER) (test code = 354) CREATININE (BEAKER) 0.93 mg/dL 0.50-1.20 (test code = 358) GLUCOSE RANDOM 297 mg/dL 70-110 H (BEAKER) (test code = 652) CALCIUM (BEAKER) 9.2 mg/dL 8.5-10.5 (test code = 697) EGFR (BEAKER) (test 105 mL/min/1.73 ESTIM ATED GFR IS code = 1092) sq m NOT ACCURATE CREATININE CLEARANCE IN PREDICTING GLOMERULAR FILTRATION RATE . ESTIMATED GFR I S NOT APPLICABLE FOR DIALYSIS PATIEN TS. Information Developer ID - LITOOperator ID - LITOOperator ID - LITOOperator ID - LITOOperator ID - LITOOperator ID - LITOOperator ID - LITOOperator ID - LITOOperator ID - LITOOperator ID - LITOOperator ID - LITOOperator ID - LITOCBC W/PLT COUNT & AUTO [id number] 05:19:00 Test Item Value Reference Range Interpretation Comments WHITE BLOOD CELL COUNT (BEAKER) 6.1 K/ L 4.0-10.0 (test code = 775) RED BLOOD CELL COUNT (BEAKER) 4.29 M/ L 4.20-5.80 (test code = 761) HEMOGLOBIN (BEAKER) (test code = 12.3 GM/DL 13.0-16.8 L 410) HEMATOCRIT (BEAKER) (test code = 38.0 % 36.0-50.0 411) MEAN CORPUSCULAR VOLUME (BEAKER) 88.6 fL 82.0-99.0 (test code = 753) MEAN CORPUSCULAR HEMOGLOBIN 28.7 pg 27.0-33.0 (BEAKER) (test code = 751) MEAN CORPUSCULAR HEMOGLOBIN CONC 32.4 GM/DL 32.0-36.0 (BEAKER) (test code = 752) RED CELL DISTRIBUTION WIDTH 13.5 % 12.0-15.0 (BEAKER) (test code = 412) PLATELET COUNT (BEAKER) (test 333 K/CU MM 150-430 code = 756) MEAN PLATELET VOLUME (BEAKER) 10.8 fL 6.0-11.5 (test code = 754) NUCLEATED RED BLOOD CELLS 0 /100 WBC 0-0 (BEAKER) (test code = 413) NEUTROPHILS RELATIVE PERCENT 47 % (BEAKER) (test code = 429) LYMPHOCYTES RELATIVE PERCENT 40 % (BEAKER) (test code = 430) MONOCYTES RELATIVE PERCENT 9 % (BEAKER) (test code = 431) EOSINOPHILS RELATIVE PERCENT 2 % (BEAKER) (test code = 432) BASOPHILS RELATIVE PERCENT 1 % (BEAKER) (test code = 437) NEUTROPHILS ABSOLUTE COUNT 2.88 K/ L 1.80-8.00 (BEAKER) (test code = 670) LYMPHOCYTES ABSOLUTE COUNT 2.42 K/ L 1.48-4.50 (BEAKER) (test code = 414) MONOCYTES ABSOLUTE COUNT (BEAKER) 0.57 K/ L 0.00-1.30 (test code = 415) EOSINOPHILS ABSOLUTE COUNT 0.14 K/ L 0.00-0.50 (BEAKER) (test code = 416) BASOPHILS ABSOLUTE COUNT (BEAKER) 0.05 K/ L 0.00-0.20 (test code = 417) IMMATURE GRANULOCYTES-RELATIVE 0 % 0-0 PERCENT (BEAKER) (test code = 2801) POCT-GLUCOSE [id number] 21:11:00 Test Item Value Reference Range Interpretation Comments POC-GLUCOSE METER 279 mg/dL 70-110 H : TESTED A T [facility] [address] (BEAKER) (test code [address], = 1538) [facility] 77 [address]: Information Developer/Techni adrian ID = [id number] for Ethan singh nishaamanda SARS-CoV2/RT-PCR (Asymptomatic ONLY)2020-08-14 18:18:00 Test Item Value Reference Range Interpretation Comments SARS-COV2/RT-PCR Negative Not Detected, Performanc e of the Xpert (test code = Negative, See Xpress 50699-0) external report SARS-CoV-2/F andrea/RSV test for linked test has only bee n established in nasopharyngeal swab specimens. Use of the Xpert Xpress SARS-CoV-2/Flu/ RSV test with other spec imen types has not b een assessed and pe rformance characteristics are unknown. As wi th any molecular test, mutations withi n the targeted geneti c regions identified by t he Xpert Xpress SARS-CoV-2/Flu/ RSV test could affect pr trena and/or probe bi nding resulting in fa ilure to detect the pres ence of virus or the vi annette being detected less predictably.Neg ative results do not preclude SARS-CoV-2, Inf luenza A/B, or RSV inf ection and should not be used as the sole bas is for treatment or ot her patient managem ent decisions. Res ults from the Xpert Xpres s SARS-CoV-2/Flu/ RSV test should be corre lated with the clinic al history, epidem iological data, and other data available to th e clinician evalu ating the patient. Inval id test results may occ ur from improper specim en collection; pino lure to follow the dora mmended sample collecti on, handling, and s torage procedures; dell hnical error. False ne gative results may occ ur if virus is presen t at levels below th e analytical limi t of detection (LOD: 131 copies/mL). Vi ral nucleic acid ma y persist in vivo, indepe ndent of virus viability . Detection of an alyte target(s) does not imply that the corres ponding virus(es) are i nfectious or are the caus ative agents for clin ical symptoms. Rece nt patient exposur e to FluMist or ot her live attenuated infl uenza vaccines may ca use inaccurate posi tive results.This te st has been authorized by FDA under an EUA fo r use by authorized labo ratroland. This test is o nly authorized for the duration of the declaration agatha t circumstances e xist justifying the authorization o f emergency use o f in vitro diagnosti c tests for detection a nd/or diagnosis of CO VID-19 under Section 5 64(b)(1) of the Federal Food, Drug and Cosmet ic Act, 21 U.S.C. 360bbb-3(b)(1), unless the authorizati on is terminated or r evoked sooner. Fact Sh eet for Healthcare Prov iders: https://www.[employer].APJeT/ Documents/Xpert %20Xpress %45DFXU-ImQ-1-F andrea-RSV/30 2-4508%20Rev.%2 0B%20HCP% 20Fact%20Sheet. pdf Fact Sheet for Healt hcare Patients: https://www.[employer].APJeT/ Documents/Xpert %20Xpress %78OFBP-UlZ-0-F andrea-RSV/30 2-4507%20Rev.%2 0B%20Pati ent%20Fact%20Sh eet.pdf SARS-COV-2 [facility] Performed at:[facility] PERFORMING LAB [address] (test code = [address] [address]-2) [place] [address] ph: [phone] [facility]omatic ONLY[facility]2020-08-14 18:18:00 Test Item Value Reference Range Interpretation Comments SARS-COV2/RT-PCR Negative Not Detected, Performanc e of the Xpert (test code = Negative, See Xpress 76445-2) external report SARS-CoV-2/F andrea/RSV test for linked test has only bee n established in nasopharyngeal swab specimens. Use of the Xpert Xpress SARS-CoV-2/Flu/ RSV test with other spec imen types has not b een assessed and pe rformance characteristics are unknown. As wi th any molecular test, mutations withi n the targeted geneti c regions identified by t he Xpert Xpress SARS-CoV-2/Flu/ RSV test could affect pr trena and/or probe bi nding resulting in fa ilure to detect the pres ence of virus or the vi annette being detected less predictably.Neg ative results do not preclude SARS-CoV-2, Inf luenza A/B, or RSV inf ection and should not be used as the sole bas is for treatment or ot her patient managem ent decisions. Res ults from the Xpert Xpres s SARS-CoV-2/Flu/ RSV test should be corre lated with the clinic al history, epidem iological data, and other data available to th e clinician evalu ating the patient. Inval id test results may occ ur from improper specim en collection; pino lure to follow the dora mmended sample collecti on, handling, and s torage procedures; dell hnical error. False ne gative results may occ ur if virus is presen t at levels below th e analytical limi t of detection (LOD: 131 copies/mL). Vi ral nucleic acid ma y persist in vivo, indepe ndent of virus viability . Detection of an alyte target(s) does not imply that the corres ponding virus(es) are i nfectious or are the caus ative agents for clin ical symptoms. Rece nt patient exposur e to FluMist or ot her live attenuated infl uenza vaccines may ca use inaccurate posi tive results.This te st has been authorized by FDA under an EUA fo r use by authorized labo ratroland. This test is o nly authorized for the duration of the declaration agatha t circumstances e xist justifying the authorization o f emergency use o f in vitro diagnosti c tests for detection a nd/or diagnosis of CO VID-19 under Section 5 64(b)(1) of the Federal Food, Drug and Cosmet ic Act, 21 U.S.C. 360bbb-3(b)(1), unless the authorizati on is terminated or r evoked sooner. Fact Sh eet for Healthcare Prov iders: https://www.Choister.com/ Documents/Xpert %20Xpress %91QXQO-QjC-5-F andrea-RSV/30 2-4508%20Rev.%2 0B%20HCP% 20Fact%20Sheet. pdf Fact Sheet for Healt hcare Patients: https://www.Choister.APJeT/ Documents/Xpert %20Xpress %43KHPS-RhK-5-F andrea-RSV/30 2-4507%20Rev.%2 0B%20Pati ent%20Fact%20Sh eet.pdf SARS-COV-2 SLSL Performed at:[facility] PERFORMING LAB [address] (test code = [address] [address]-5) [place] [address] ph: [phone] [facility] ([facility])2020-08-14 18:18:00 Test Item Value Reference Range Interpretation Comments SARS-COV2/RT-PCR Negative Not Detected, Performanc e of the Xpert (test code = Negative, See Xpress [id number]) external report SARS-CoV-2/F andrea/RSV test for linked test has only bee n established in nasopharyngeal swab specimens. Use of the Xpert Xpress SARS-CoV-2/Flu/ RSV test with other spec imen types has not b een assessed and pe rformance characteristics are unknown. As wi th any molecular test, mutations withi n the targeted geneti c regions identified by t he Xpert Xpress SARS-CoV-2/Flu/ RSV test could affect pr trena and/or probe bi nding resulting in fa ilure to detect the pres ence of virus or the vi annette being detected less predictably.Neg ative results do not preclude SARS-CoV-2, Inf luenza A/B, or RSV inf ection and should not be used as the sole bas is for treatment or ot her patient managem ent decisions. Res ults from the Xpert Xpres s SARS-CoV-2/Flu/ RSV test should be corre lated with the clinic al history, epidem iological data, and other data available to th e clinician evalu ating the patient. Inval id test results may occ ur from improper specim en collection; pino lure to follow the dora mmended sample collecti on, handling, and s torage procedures; dell hnical error. False ne gative results may occ ur if virus is presen t at levels below th e analytical limi t of detection (LOD: 131 copies/mL). Vi ral nucleic acid ma y persist in vivo, indepe ndent of virus viability . Detection of an alyte target(s) does not imply that the corres ponding virus(es) are i nfectious or are the caus ative agents for clin ical symptoms. Rece nt patient exposur e to FluMist or oth er live attenuated infl uenza vaccines may ca use inaccurate posi tive results.This te st has been authorized by FDA under an EUA fo r use by authorized labo ratories. This test is o nly authorized for the duration of the declaration agatha t circumstances e xist justifying the authorization o f emergency use o f in vitro diagnosti c tests for detection a nd/or diagnosis of CO VID-19 under Section 5 64(b)(1) of the Federal Food, Drug and Cosmet ic Act, 21 U.S.C. 360bbb-3(b)(1), unless the authorizati on is terminated or r evoked sooner.Fact She et for Healthcare Prov iders: https://www.[employer]/ Documents/Xpert %20Xpress %65HJGF-VrA-3-F andrea-RSV/30 2-4508%20Rev.%2 0B%20HCP% 20Fact%20Sheet. pdfFact Sheet for Healt hcare Patients: https://www.[employer]/ Documents/Xpert %20Xpress %12WGMD-NtE-6-F andrea-RSV/30 2-4507%20Rev.%2 0B%20Pati ent%20Fact%20Sh eet.pdf SARS-COV-2 SLSL Performed at:[facility] PERFORMING LAB [facility]1317 (test code = [facility] 4765522) [place] [address] ph: [phone] POCT-GLUCOSE [id number] 16:54:00 Test Item Value Reference Range Interpretation Comments POC-GLUCOSE METER 261 mg/dL 70-110 H : Notified RN/MD: [facility] (test code AT [facility] [address] [place] [address] = 1538) [place] [address]: Information Developer/Techni adrian ID = [id number] for Thak er, Nikitaben POCT-GLUCOSE [id number] 11:22:00 Test Item Value Reference Range Interpretation Comments POC-GLUCOSE METER 337 mg/dL 70-110 H : Notified RN/MD: TESTED ([facility]) (test code AT [facility] [address] [place] [address] = 1538) [place] [id number]: Information Developer/Techni adrian ID = [id number] for Thak er, [place] U/S, TESTICULAR (SCROTUM)2020-08-14 09:17:00Reason for exam:->Swelling, pain, erythema of the right scrotum [facility] : 1970 Sex: MFINAL REPORT Testicular ultrasound. History: Pain and swelling. Com parison: None available. Discussion: Evaluation of the scrotum was performed in the transverse and longitudinal planes. Color Doppler and spectral wave form analysis was performed bilaterally. The testes are normal in size and echogenicity bilaterally, measuring 5.3 x 3.4 x 2.5 cm on the right and 4.5 x 2.0 x 2.9 cm on the left. There is no evidence of a mass. Normal and symmetrical flow is presentwithin both testes. The epididymi are normal bilaterally, with the epididymal heads measuring 1.1 cmon the right and 1.0 cm on the left. There is no hydrocoele. . IMPRESSION: Normal testicular ultrasound. Signed: Chemo Marks Verified Date/Time: 08/14/2020 09:17:05 Reading Location: [facility] Radiology Reading Room POCT-GLUCOSE [id number] 07:33:00 Test Item Value Reference Range Interpretation Comments POC-GLUCOSE METER 404 mg/dL 70-110 HH : Notified RN/MD: TESTED (BEAKER) (test code AT [facility] [address] = 1538) MINDYLaurita [facility] [address]: Information Developer/Techni adrian ID = [id number] for Evan Husain Urinalysis w/Microscopic + Reflex to [id number] 07:32:00 Test Item Value Reference Range Interpretation Comments Color, UA (test code Yellow = 5778-6) Clarity, UA (test Slightly Cloudy code = 5767-9) Specific Alger, UA 1.020 1.001-1.035 (test code = 5811-5) pH, UA (test code = 6.0 5.0-8.0 5803-2) Protein, UA (test Negative Negative code = 03496-9) Glucose, UA (test >=1000 mg/dL Negative A code = 365) Ketones, UA (test 15 mg/dL Negative A code = 2514-8) Bilirubin, UA (test Negative Negative code = 38202-1) Blood, UA (test code Trace Negative A = 01363-3) Nitrite, UA (test Negative Negative code = 5802-4) Leukocytes, UA (test Negative Negative code = 5799-2) Urobilinogen, UA 0.2 mg/dL 0.2-1.0 (test code = 13887-4) Bacteria, UA (test Rare code = 86696-5) RBC, UA (test code = 5-10 See_Comment [Autom ated 799-7) message] The system which generated this result transmit odalys reference range : /HPF. The reference range was not used to interpret this result as normal/abnormal . WBC, UA (test code = 20-50 See_Comment [Autom ated 71112-8) message] The system which generated this result transmit odalys reference range : /HPF. The reference range was not used to interpret this result as normal/abnormal . SQUAMOUS EPITHELIAL <5 See_Comment [Automa odalys (test code = 99484-6) messag e] The system which generated this result transmit odalys reference range : /HPF. The reference range was not used to interpret this result as normal/abnormal . Specimen Source (test code = 2795) Lab Interpretation Abnormal (test code = 98935-0) [facility] Reflex to Culture 2020-08-14 07:32:00 Test Item Value Reference Range Interpretation Comments Color, UA (test code Yellow = 5778-6) Clarity, UA (test Slightly Cloudy code = 5767-9) Specific Alger, UA 1.020 1.001-1.035 (test code = 5811-5) pH, UA (test code = 6.0 5.0-8.0 5803-2) Protein, UA (test Negative Negative code = 76596-6) Glucose, UA (test >=1000 mg/dL Negative A code = 365) Ketones, UA (test 15 mg/dL Negative A code = 2514-8) Bilirubin, UA (test Negative Negative code = 07620-5) Blood, UA (test code Trace Negative A = 22130-5) Nitrite, UA (test Negative Negative code = 5802-4) Leukocytes, UA (test Negative Negative code = 5799-2) Urobilinogen, UA 0.2 mg/dL 0.2-1.0 (test code = 06596-8) Bacteria, UA (test Rare code = 84730-1) RBC, UA (test code = 5-10 See_Comment [Autom ated 799-7) message] The system which generated this result transmit odalys reference range : /HPF. The reference range was not used to interpret this result as normal/abnormal . WBC, UA (test code = 20-50 See_Comment [Autom ated 17028-5) message] The system which generated this result transmit odalys reference range : /HPF. The reference range was not used to interpret this result as normal/abnormal . SQUAMOUS EPITHELIAL <5 See_Comment [Automa odalys (test code = 50263-4) messag e] The system which generated this result transmit odalys reference range : /HPF. The reference range was not used to interpret this result as normal/abnormal . Specimen Source (test code = 2795) Lab Interpretation Abnormal (test code = 56035-0) [facility]FLEX URINE [id number] 07:32:00 Test Item Value Reference Range Interpretation Comments COLOR (BEAKER) (test code = Yellow 470) CLARITY (BEAKER) (test code = Slightly Cloudy 469) SPECIFIC GRAVITY UA (BEAKER) 1.020 1.001-1.035 (test code = 468) PH UA (BEAKER) (test code = 6.0 5.0-8.0 467) PROTEIN UA (BEAKER) (test Negative Negative code = 464) GLUCOSE UA (BEAKER) (test >=1000 mg/dL Negative A code = 365) KETONES UA (BEAKER) (test 15 mg/dL Negative A code = 371) BILIRUBIN UA (BEAKER) (test Negative Negative code = 462) BLOOD UA (BEAKER) (test code Trace Negative A = 461) NITRITE UA (BEAKER) (test Negative Negative code = 465) LEUKOCYTE ESTERASE UA Negative Negative (BEAKER) (test code = 466) UROBILINOGEN UA (BEAKER) 0.2 mg/dL 0.2-1.0 (test code = 463) BACTERIA (BEAKER) (test code Rare = 517) RBC UA-MANUAL (BEAKER) (test 5-10 /HPF code = 1659) WBC UA-MANUAL (BEAKER) (test 20-50 /HPF code = 1661) SQUAMOUS EPITHELIAL MANUAL <5 /HPF (BEAKER) (test code = 1663) SOURCE(BEAKER) (test code = 2795) Hemoglobin [id number] 06:51:00 Test Item Value Reference Range Interpretation Comments Hemoglobin A1C (test code 14.0 % 4.3-6.1 H = 4548-4) ЕЛЕНА (test code = ЕЛЕНА) Information Developer ID - [id number] Lab Interpretation (test Abnormal code = 31812-9) [facility] [id number] 06:51:00 Test Item Value Reference Range Interpretation Comments Hemoglobin A1C (test code 14.0 % 4.3-6.1 H = 4548-4) ЕЛЕНА (test code = ЕЛЕНА) Information Developer ID - [id number] Lab Interpretation (test Abnormal code = 68547-6) [facility]MO[facility]IN [id number] 06:51:00 Test Item Value Reference Range Interpretation Comments HEMOGLOBIN A1C (BEAKER) (test code = 14.0 % 4.3-6.1 H 368) Information Developer ID - [id number] METABOLIC [id number] 06:31:00 Test Item Value Reference Range Interpretation Comments SODIUM (BEAKER) 133 meq/L 135-148 L (test code = 381) POTASSIUM (BEAKER) 3.5 meq/L 3.6-5.5 L (test code = 379) CHLORIDE (BEAKER) 101 meq/L 98-106 (test code = 382) CO2 (BEAKER) (test 21 meq/L 20-29 code = 355) BLOOD UREA NITROGEN 12 mg/dL 10-26 (BEAKER) (test code = 354) CREATININE (BEAKER) 0.88 mg/dL 0.50-1.20 (test code = 358) GLUCOSE RANDOM 387 mg/dL 70-110 H (BEAKER) (test code = 652) CALCIUM (BEAKER) 9.6 mg/dL 8.5-10.5 (test code = 697) EGFR (BEAKER) (test 112 mL/min/1.73 ESTIM ATED GFR IS code = 1092) sq m NOT ACCURATE CREATININE CLEARANCE IN PREDICTING GLOMERULAR FILTRATION RATE . ESTIMATED GFR I S NOT APPLICABLE FOR DIALYSIS PATIEN TS. Information Developer ID - [id number] ID - [id number] ID - [id number] ID - [id number] ID - [id number] ID - [id number] ID - [id number] ID - [id number] ID - [id number] ID - [id number] 06:29:00 Test Item Value Reference Range Interpretation Comments MAGNESIUM (BEAKER) (test code = 1.7 mg/dL 1.5-3.0 627) Information Developer ID - [id number] ID - [id number] ID - [id number] ID - [id number] [id number] 06:26:00 Test Item Value Reference Range Interpretation Comments Phosphorus (test code = 3.3 mg/dL 2.5-4.5 2777-1) ЕЛЕНА (test code = ЕЛЕНА) Information Developer ID - [id number] Lab Interpretation (test Normal code = 14837-1) [facility]osph[facility]2021-[facility] 06:26:00 Test Item Value Reference Range Interpretation Comments Phosphorus (test code = 3.3 mg/dL 2.5-4.5 2777-1) ЕЛЕНА (test code = ЕЛЕНА) Information Developer ID - [id number] Lab Interpretation (test Normal code = 10381-3) [facility]PHOSPHORUS2021-06-28 06:26:00 Test Item Value Reference Range Interpretation Comments PHOSPHORUS (BEAKER) (test code = 3.3 mg/dL 2.5-4.5 604) Information Developer ID - [id number] time/[id number] 06:24:00 Test Item Value Reference Interpretation Comments Range Protime (test code = 10.8 See_Comment Final 5902-2) Information (Auto Output) [Automated message] The system which generated this result transmitted reference range : 9.3 - 12.0 seconds. The reference range was not used to interpret this result as normal/abnormal . INR (test code = 0.97 See_Comment Final 6301-6) Information (Auto Output) [Automated message] The system which generated this result transmitted reference range : <=5.90. The reference range was not used to interpret this result as normal/abnormal . ЕЛЕНА (test code = RECOMMENDED ЕЛЕНА) COUMADIN/WARFARIN INR THERAPY RANGESSTANDARD DOSE: 2.0 - 3.0 Includes: PROPHYLAXIS for venous thrombosis, systemic embolization; TREATMENT for venous thrombosis and/or pulmonary embolus.HIGH RISK: Target INR is 2.5-3.5 for patients with mechanical heart valves. Lab Interpretation Normal (test code = 45312-3) [facility] HospitalProthrombin time/[id number] 06:24:00 Test Item Value Reference Interpretation Comments Range Protime (test code = 10.8 See_Comment Final 5902-2) Information (Auto Output) [Automated message] The system which generated this result transmitted reference range : 9.3 - 12.0 seconds. The reference range was not used to interpret this result as normal/abnormal . INR (test code = 0.97 See_Comment Final 6301-6) Information (Auto Output) [Automated message] The system which generated this result transmitted reference range : <=5.90. The reference range was not used to interpret this result as normal/abnormal . ЕЛЕНА (test code = RECOMMENDED ЕЛЕНА) COUMADIN/WARFARIN INR THERAPY RANGESSTANDARD DOSE: 2.0 - 3.0 Includes: PROPHYLAXIS for venous thrombosis, systemic embolization; TREATMENT for venous thrombosis and/or pulmonary embolus.HIGH RISK: Target INR is 2.5-3.5 for patients with mechanical heart valves. Lab Interpretation Normal (test code = 25256-2) [facility] HospitalPROTHROMBIN TIME/[id number] 06:24:00 Test Item Value Reference Range Interpretation Comments PROTIME (BEAKER) 10.8 seconds 9.3-12.0 Final Infor mation (test code = 759) (Auto Outp ut) INR (BEAKER) (test 0.97 See_Comment Final Inf ormation code = 370) (Auto Output) [Automated mess age] The system [employer] generated this result transmitted ref erence range: <=5.90. The reference range was not used to int erpret this result as normal/abnormal . RECOMMENDED COUMADIN/WARFARIN INR THERAPY RANGESSTANDARD DOSE: 2.0 - 3.0 Includes: PROPHYLAXIS forvenous thrombosis, systemic embolization; TREATMENT for venous thrombosis and/or pulmonary embolus.HIGH RISK: Target INR is 2.5-3.5 for patients with mechanical heart valves.CBC W/PLT COUNT & AUTO DIFFERENTIAL 2020-08-14 06:16:00 Test Item Value Reference Range Interpretation Comments WHITE BLOOD CELL COUNT (BEAKER) 8.1 K/ L 4.0-10.0 (test code = 775) RED BLOOD CELL COUNT (BEAKER) 4.28 M/ L 4.20-5.80 (test code = 761) HEMOGLOBIN (BEAKER) (test code = 12.4 GM/DL 13.0-16.8 L 410) HEMATOCRIT (BEAKER) (test code = 37.4 % 36.0-50.0 411) MEAN CORPUSCULAR VOLUME (BEAKER) 87.4 fL 82.0-99.0 (test code = 753) MEAN CORPUSCULAR HEMOGLOBIN 29.0 pg 27.0-33.0 (BEAKER) (test code = 751) MEAN CORPUSCULAR HEMOGLOBIN CONC 33.2 GM/DL 32.0-36.0 (BEAKER) (test code = 752) RED CELL DISTRIBUTION WIDTH 13.4 % 12.0-15.0 (BEAKER) (test code = 412) PLATELET COUNT (BEAKER) (test 358 K/CU MM 150-430 code = 756) MEAN PLATELET VOLUME (BEAKER) 10.8 fL 6.0-11.5 (test code = 754) NUCLEATED RED BLOOD CELLS 0 /100 WBC 0-0 (BEAKER) (test code = 413) NEUTROPHILS RELATIVE PERCENT 48 % (BEAKER) (test code = 429) LYMPHOCYTES RELATIVE PERCENT 39 % (BEAKER) (test code = 430) MONOCYTES RELATIVE PERCENT 10 % (BEAKER) (test code = 431) EOSINOPHILS RELATIVE PERCENT 1 % (BEAKER) (test code = 432) BASOPHILS RELATIVE PERCENT 1 % (BEAKER) (test code = 437) NEUTROPHILS ABSOLUTE COUNT 3.93 K/ L 1.80-8.00 (BEAKER) (test code = 670) LYMPHOCYTES ABSOLUTE COUNT 3.16 K/ L 1.48-4.50 (BEAKER) (test code = 414) MONOCYTES ABSOLUTE COUNT (BEAKER) 0.80 K/ L 0.00-1.30 (test code = 415) EOSINOPHILS ABSOLUTE COUNT 0.11 K/ L 0.00-0.50 (BEAKER) (test code = 416) BASOPHILS ABSOLUTE COUNT (BEAKER) 0.06 K/ L 0.00-0.20 (test code = 417) IMMATURE GRANULOCYTES-RELATIVE 1 % 0-0 H PERCENT (BEAKER) (test code = 2801) POCT-GLUCOSE [id number] 04:21:00 Test Item Value Reference Range Interpretation Comments POC-GLUCOSE METER 332 mg/dL 70-110 H : TESTED A T [facility] [address] (BEAKER) (test code [address], = 1538) [facility] [address]: Information Developer/Techni adrian ID = [id number] for Francesca Lassiter BASIC METABOLIC PANEL (NA, K, CL, CO2, GLUCOSE, BUN, CREATININE, CA)2020-03-19 05:46:00 Test Item Value Reference Range Interpretation Comments NA (test code = 140 mmol/L 135-145 5051971765) K (test code = 4.0 mmol/L 3.5-5 2558867107) CL (test code = 104 mmol/L 98-108 0389064612) CO2 TOTAL (test code = 24 mmol/L 23-31 2583174153) AGAP (test code = 2-16 6621525531) BUN (test code = 23 mg/dL 7-23 4015832293) GLUCOSE (test code = 114 mg/dL 70-110 H 7010236499) CREATININE (test code = 1.09 mg/dL 0.6-1.25 1102899698) CALCIUM (test code = 9.4 mg/dL 8.6-10.6 9090563341) eGFR Calculation mL/min/1.73m2 (Non-) (test code = 7630966196) eGFR Calculation mL/min/1.73m2 () (test code = 8957061713) ЕЛЕНА (test code = ЕЛЕНА) Association of Glomerular Filtration Rate (GFR) and Staging of Kidney Disease* + --+ --+ ------+| GFR (mL/min/1.73 m2) ?| With Kidney Damage ?| ?Without Kidney Damage+ --------+ --------+ +| ?>90 ?| ?Stage one ?| ? Normal ?+ ---+ ---+ -------+| ?60-89 ?| ?Stage two ?| ? Decreased GFR ? + --+ --+ ------+| ?30-59 ?| ?Stage three ?| ? Stage three ? + --+ --+ ------+| ?15-29 ?| ?Stage four ? | ? Stage four ?+ ---+ ---+ -------+| ?<15 (or dialysis) ? ?| ?Stage five ? | ? Stage five ?+ ---+ ---+ -------+ *Each stage assumes the associated GFR level has been in effect for at least three months. ?Stages 1 to 5, with or without kidney disease, indicate chronic kidney disease. Notes: Determination of stages one and two (with eGFR >59mL/min/1.73 m2) requires estimation of kidney damage for at least three months as defined by structural or functional abnormalities of the kidney, manifested by either:Pathological abnormalities or Markers of kidney damage (including abnormalities in the composition of the blood or urine or abnormalities in imaging tests). Lab Interpretation Abnormal (test code = 65383-3) [facility] 03:36:00 Test Item Value Reference Range Interpretation Comments APPEARANCE (test code = Cloudy Clear A 7741173966) COLOR (test code = Gricelda Yellow A 5908804100) PH (test code = 4.8-8.0 9467557701) SP GRAVITY (test code = 1.003-1.030 8136435165) GLU U QUAL (test code = Normal Normal 7784567993) BLOOD (test code = 1+ Negative A 7261649113) KETONES (test code = 20 mg/dL Negative A 3228491821) PROTEIN (test code = 500 mg/dL Negative A 2887-8) UROBILIN (test code = 4.0 mg/dL Normal A 5749091329) BILIRUBIN (test code = 2 mg/dL Negative A 5665256798) NITRITE (test code = Negative Negative 0324396681) LEUK BRIDGET (test code = Negative Negative 1626799773) RBC/HPF (test code = See_Comment [Autom ated message] 7959707713) The system [employer] generated this result transmit odalys reference range : 0 - 3 HPF. The refe rence range was not u sed to interpret th is result as normal/abnormal . WBC/HPF (test code = See_Comment H [Autom ated message] 1782646894) The system [employer] generated this result transmit odalys reference range : 0 - 5 HPF. The refe rence range was not u sed to interpret th is result as normal/abnormal . BACTERIA (test code = Few Negative A 7822792382) MUCOUS (test code = Marked Negative LPF A 9665090048) SQ EPITH (test code = HPF 0022558765) HYAL CAST (test code = See_Comment H [Aut omated message] 7873633674) The system [employer] generated this result transmit odalys reference range : <=2 LPF. The refere nce range was not u sed to interpret th is result as normal/abnormal . Lab Interpretation (test Abnormal code = 57144-5) [facility] VBG + LACTIC [id number] 03:32:00 Test Item Value Reference Range Interpretation Comments PH (test code = 7.32-7.42 9956940037) PCO2 LOUIS (test code = See_Comment L [Auto mated 3655648060) message] The sy stem which generated this result transmitted reference range : 41 - 51 mmHg. The reference range was not used to interpret this result as normal/abnormal . PO2 LOUIS (test code = See_Comment [Autom ated 7750515062) message] The sy stem which generated this result transmitted reference range : 25 - 40 mmHg. The reference range was not used to interpret this result as normal/abnormal . HCO3 LOUIS (test code = See_Comment L [Auto mated 5252801381) message] The sy stem which generated this result transmitted reference range : 24 - 28 mEq/L. The reference range was not used to interpret this result as normal/abnormal . AC VBE(BEAKER) (test mEq/L code = 6414550069) LACTIC ACID (test code 1.72 mmol/L 0.5-2.2 = 3606417070) Lab Interpretation Abnormal (test code = 24031-6) [facility]2020-03-19 01:51:00 Test Item Value Reference Range Interpretation Comments NA (test code = 141 mmol/L 135-145 7401118395) K (test code = 4.1 mmol/L 3.5-5 1288098117) CL (test code = 102 mmol/L 98-108 9072534216) CO2 TOTAL (test code = 21 mmol/L 23-31 L 5928754493) AGAP (test code = 2-16 H 7851128209) BUN (test code = 25 mg/dL 7-23 H 8914555678) GLUCOSE (test code = 160 mg/dL 70-110 H 1598512313) CREATININE (test code = 1.12 mg/dL 0.6-1.25 0653954733) TOTAL BILI (test code = 1.1 mg/dL 0.1-1.1 4809974647) CALCIUM (test code = 10.6 mg/dL 8.6-10.6 3738436854) T PROTEIN (test code = 9.4 g/dL 6.3-8.2 H 2170398552) ALBUMIN (test code = 5.1 g/dL 3.5-5 H 4323639166) ALK PHOS (test code = 108 U/L 34-122 7816173018) ALTv (test code = 121 U/L 5-50 H 1742-6) AST(SGOT) (test code = 99 U/L 13-40 H 4461698169) eGFR Calculation mL/min/1.73m2 (Non-) (test code = 9579589599) eGFR Calculation mL/min/1.73m2 () (test code = 9715729418) ЕЛЕНА (test code = ЕЛЕНА) Association of Glomerular Filtration Rate (GFR) and Staging of Kidney Disease* + --+ --+ ------+| GFR (mL/min/1.73 m2) ?| With Kidney Damage ?| ?Without Kidney Damage+ --------+ --------+ +| ?>90 ?| ?Stage one ?| ? Normal ?+ ---+ ---+ -------+| ?60-89 ?| ?Stage two ?| ? Decreased GFR ? + --+ --+ ------+| ?30-59 ?| ?Stage three ?| ? Stage three ? + --+ --+ ------+| ?15-29 ?| ?Stage four ? | ? Stage four ?+ ---+ ---+ -------+| ?<15 (or dialysis) ? ?| ?Stage five ? | ? Stage five ?+ ---+ ---+ -------+ *Each stage assumes the associated GFR level has been in effect for at least three months. ?Stages 1 to 5, with or without kidney disease, indicate chronic kidney disease. Notes: Determination of stages one and two (with eGFR >59mL/min/1.73 m2) requires estimation of kidney damage for at least three months as defined by structural or functional abnormalities of the kidney, manifested by either:Pathological abnormalities or Markers of kidney damage (including abnormalities in the composition of the blood or urine or abnormalities in imaging tests). Lab Interpretation Abnormal (test code = 09734-9) [facility]IP[facility]2021-01-[facility] 01:51:00 Test Item Value Reference Range Interpretation Comments LIPASE (test code = 8359008899) 66 U/L 0-220 Lab Interpretation (test code = Normal 23665-5) [facility]ressMAGNESIUM2021-01-31 01:51:00 Test Item Value Reference Range Interpretation Comments MAGNESIUM (test code = 6575119377) 1.8 mg/dL 1.7-2.4 Lab Interpretation (test code = Normal 35872-7) [facility]ressCB WITH [id number] 01:38:00 Test Item Value Reference Range Interpretation Comments WBC (test code = See_Comment [Automated 9966-2) message] The sy stem which generated this result transmitted reference range : 4.20 - 10.70 10*3/?L. The reference range was not used to interpret this result as normal/abnormal . RBC (test code = See_Comment [Automated 301-6) message] The sy stem which generated this result transmitted reference range : 4.26 - 5.52 10*6/?L. The reference range was not used to interpret this result as normal/abnormal . HGB (test code = 15.6 g/dL 12.2-16.4 718-7) HCT (test code = 45.9 % 38.4-49.3 4544-3) MCV (test code = 86.8 fL 81.7-95.6 787-2) MCH (test code = 29.5 pg 26.1-32.7 785-6) MCHC (test code = 34.0 g/dL 31.2-35 786-4) RDW-SD (test code = 41.2 fL 38.5-51.6 83466-7) RDW-CV (test code = 13.2 % 12.1-15.4 788-0) PLT (test code = See_Comment H [Automated 777-3) message] The sy stem which generated this result transmitted reference range : 150 - 328 10*3/ ?L. The reference r cj was not used to interpret this result as normal/abnormal . MPV (test code = 9.5 fL 9.8-13 L 25090-2) NRBC/100 WBC (test See_Comment [Automat ed code = 6665730079) message] The system which generated this result transmitted reference range : 0.0 - 10.0 /100 WBCs. The refer ence range was not u sed to interpret th is result as normal/abnormal . NRBC x10^3 (test code <0.01 See_Comment [Auto mated = 5327944413) message] The s ystem which generated this result transmitted reference range : 10*3/?L. The reference range was not used to interpret this result as normal/abnormal . GRAN MAT (NEUT) % 46.0 % (test code = 770-8) IMM GRAN % (test code 3.50 % = 7132646135) LYMPH % (test code = 37.9 % 736-9) MONO % (test code = 9.5 % 5905-5) EOS % (test code = 2.3 % 713-8) BASO % (test code = 0.8 % 706-2) GRAN MAT x10^3(ANC) 3.38 10*3/uL 1.99-6.95 (test code = 1715971610) IMM GRAN x10^3 (test 0.26 10*3/uL 0-0.06 H code = 7480156101) LYMPH x10^3 (test code 2.79 10*3/uL 1.09-3.23 = 731-0) MONO x10^3 (test code 0.70 10*3/uL 0.36-1.02 = 742-7) EOS x10^3 (test code = 0.17 10*3/uL 0.06-0.53 711-2) BASO x10^3 (test code 0.06 10*3/uL 0.01-0.09 = 704-7) Lab Interpretation Abnormal (test code = 73538-7) [facility] 1 [id number] 01:31:03No acute cardiopulmonary disease RL: [id number] AFC: [id number] End of report ORDERING CLINICIAN: STEFANY GUERRERO TECHNIQUE: Single view of the chest INDICATION: Fever COMPARISON: None DISCUSSION: The lungs are clear. The cardiac silhouette is withinnormal limits. The airway is midline. The mediastinal contour is normal. [facility], Radiant Results Inft User - 03/12/2020 7:32 PM CSTORDERING CLINICIAN: STEFANY BUITRAGOECHNIQUE: Single view of the chestINDICATION: FeverCOMPARISON: NoneDISCUSSION: The lungs are clear. The cardiac silhouette is within normal limits.The airway is midline. The mediastinal contour is normal.IMPRESSIONNo acute cardiopulmonary diseaseRL: 6200AFC: [id number] of report [facility]AD,[facility] - INFLUENZA A & B DIRECT [id number] 01:15:00 Test Item Value Reference Range Interpretation Comments Influenza A (test code = 49837-8) Negative Negative Influenza B (test code = 63671-5) Negative Negative Lab Interpretation (test code = Normal 19896-2) [facility] CypressUrinalysis2021-01-25 01:03:00 Test Item Value Reference Range Interpretation Comments APPEARANCE (test code = Hazy Clear A 8960324630) COLOR (test code = Gricelda Yellow A 8265470401) PH (test code = 4.8-8.0 9762902368) SP GRAVITY (test code = 1.003-1.030 9081549058) GLU U QUAL (test code = Normal Normal 8828439199) BLOOD (test code = 2+ Negative A 2817808444) KETONES (test code = Negative Negative 7900635397) PROTEIN (test code = 500 mg/dL Negative A 2887-8) UROBILIN (test code = Normal Normal 4152664693) BILIRUBIN (test code = Negative Negative 7430862742) NITRITE (test code = Negative Negative 0845181346) LEUK BRIDGET (test code = Negative Negative 7823011716) RBC/HPF (test code = See_Comment H [Autom ated message] 5648761418) The system [employer] generated this result transmit odalys reference range : 0 - 3 HPF. The refe rence range was not u sed to interpret th is result as normal/abnormal . WBC/HPF (test code = See_Comment [Autom ated message] 3901000875) The system [employer] generated this result transmit odalys reference range : 0 - 5 HPF. The refe rence range was not u sed to interpret th is result as normal/abnormal . BACTERIA (test code = Few Negative A 5453853557) MUCOUS (test code = Slight Negative LPF A 8487515397) Lab Interpretation (test Abnormal code = 41823-1) [facility] (NA, K, CL, CO2, GLUCOSE, BUN, CREATININE, CA)2020-03-13 00:49:00 Test Item Value Reference Range Interpretation Comments NA (test code = 135 mmol/L 135-145 0932060994) K (test code = 4.0 mmol/L 3.5-5 8442757776) CL (test code = 97 mmol/L 98-108 L 8411895693) CO2 TOTAL (test code = 24 mmol/L 23-31 9396545986) AGAP (test code = 2-16 5489803301) BUN (test code = 21 mg/dL 7-23 3490005075) GLUCOSE (test code = 206 mg/dL 70-110 H 0747356597) CREATININE (test code = 1.12 mg/dL 0.6-1.25 1389077067) CALCIUM (test code = 9.8 mg/dL 8.6-10.6 6771202000) eGFR Calculation mL/min/1.73m2 (Non-) (test code = 3088776542) eGFR Calculation mL/min/1.73m2 () (test code = 3205717827) ЕЛЕНА (test code = ЕЛЕНА) Association of Glomerular Filtration Rate (GFR) and Staging of Kidney Disease* + --+ --+ ------+| GFR (mL/min/1.73 m2) ?| With Kidney Damage ?| ?Without Kidney Damage+ --------+ --------+ +| ?>90 ?| ?Stage one ?| ? Normal ?+ ---+ ---+ -------+| ?60-89 ?| ?Stage two ?| ? Decreased GFR ? + --+ --+ ------+| ?30-59 ?| ?Stage three ?| ? Stage three ? + --+ --+ ------+| ?15-29 ?| ?Stage four ? | ? Stage four ?+ ---+ ---+ -------+| ?<15 (or dialysis) ? ?| ?Stage five ? | ? Stage five ?+ ---+ ---+ -------+ *Each stage assumes the associated GFR level has been in effect for at least three months. ?Stages 1 to 5, with or without kidney disease, indicate chronic kidney disease. Notes: Determination of stages one and two (with eGFR >59mL/min/1.73 m2) requires estimation of kidney damage for at least three months as defined by structural or functional abnormalities of the kidney, manifested by either:Pathological abnormalities or Markers of kidney damage (including abnormalities in the composition of the blood or urine or abnormalities in imaging tests). Lab Interpretation Abnormal (test code = 91073-1) [facility] NOW RAPID TESTING)2020-03-13 00:49:00 Test Item Value Reference Range Interpretation Comments SARS-CoV-2 Rapid ID NOW Positive Not Detected A (test code = 60916-9) ЕЛЕНА (test code = ЕЛЕНА) ID NOW COVID-19 Assay is an isothermal nucleic acid amplification test intended for the qualitative detection of nucleic acid from SARS-CoV-2 viral RNA in nasopharyngeal (CAR HOSTLER) specimens. It is used under Emergency Use Authorization (EUA) by FDA. The limit of detection (LOD) of the assay is 125 Genome Equivalents/mL. A positive result is indicative of the presence of SARS-CoV-2 RNA. ?Clinical correlation with patient history and other diagnostic information is necessary to determine patient infection status. A negative (Not Detected) result does not preclude SARS-CoV-2 infection. In patients with clinical symptoms and other tests that are consistent with SARS-CoV-2 infection, negative results should be treated as presumptive negative and a new specimen should be tested with alternative PCR molecular test. Invalid: Please collect a new specimen for repeat patient testing if clinically indicated. Lab Interpretation Abnormal (test code = 14134-3) [facility] (ALB, T.PRO, BILI T, BU/BC, ALT, AST, ALK PHOS)2020-03-13 00:43:00 Test Item Value Reference Range Interpretation Comments TOTAL BILI (test code = 8785886365) 0.8 mg/dL 0.1-1.1 BILI UNCON (test code = 2027784173) 0.6 mg/dL 0.1-1.1 BILI CONJ (test code = 2088643385) 0.0 mg/dL 0-0.3 T PROTEIN (test code = 4317121126) 8.9 g/dL 6.3-8.2 H ALBUMIN (test code = 0333779855) 4.8 g/dL 3.5-5 ALK PHOS (test code = 3314693823) 82 U/L 34-122 ALTv (test code = 1742-6) 138 U/L 5-50 H AST(SGOT) (test code = 1782968156) 139 U/L 13-40 H Lab Interpretation (test code = Abnormal 65712-4) [facility] Prnaa6926-05-27 00:42:00 Test Item Value Reference Range Interpretation Comments LIPASE (test code = 5277083306) 46 U/L 0-220 Lab Interpretation (test code = Normal 74342-3) [facility] with Mkkuigurpfvr5173-66-02 00:26:00 Test Item Value Reference Range Interpretation Comments WBC (test code = See_Comment [Automated 2286-2) message] The sy stem which generated this result transmitted reference range : 4.20 - 10.70 10*3/?L. The reference range was not used to interpret this result as normal/abnormal . RBC (test code = See_Comment [Automated 903-8) message] The sy stem which generated this result transmitted reference range : 4.26 - 5.52 10*6/?L. The reference range was not used to interpret this result as normal/abnormal . HGB (test code = 14.2 g/dL 12.2-16.4 718-7) HCT (test code = 41.8 % 38.4-49.3 4544-3) MCV (test code = 86.9 fL 81.7-95.6 787-2) MCH (test code = 29.5 pg 26.1-32.7 785-6) MCHC (test code = 34.0 g/dL 31.2-35 786-4) RDW-SD (test code = 42.4 fL 38.5-51.6 33639-1) RDW-CV (test code = 13.3 % 12.1-15.4 788-0) PLT (test code = See_Comment H [Automated 777-3) message] The sy stem which generated this result transmitted reference range : 150 - 328 10*3/ ?L. The reference r cj was not used to interpret this result as normal/abnormal . MPV (test code = 10.0 fL 9.8-13 58300-0) NRBC/100 WBC (test See_Comment [Automat ed code = 2396004657) message] The system which generated this result transmitted reference range : 0.0 - 10.0 /100 WBCs. The refer ence range was not u sed to interpret th is result as normal/abnormal . NRBC x10^3 (test code <0.01 See_Comment [Auto mated = 2266364746) message] The s ystem which generated this result transmitted reference range : 10*3/?L. The reference range was not used to interpret this result as normal/abnormal . GRAN MAT (NEUT) % 55.8 % (test code = 770-8) IMM GRAN % (test code 1.80 % = 6418247316) LYMPH % (test code = 33.1 % 736-9) MONO % (test code = 8.5 % 5905-5) EOS % (test code = 0.3 % 713-8) BASO % (test code = 0.5 % 706-2) GRAN MAT x10^3(ANC) 4.12 10*3/uL 1.99-6.95 (test code = 2058427726) IMM GRAN x10^3 (test 0.13 10*3/uL 0-0.06 H code = 3863405020) LYMPH x10^3 (test code 2.44 10*3/uL 1.09-3.23 = 731-0) MONO x10^3 (test code 0.63 10*3/uL 0.36-1.02 = 742-7) EOS x10^3 (test code = <0.03 0.06-0.53 L 711-2) BASO x10^3 (test code 0.04 10*3/uL 0.01-0.09 = 704-7) Lab Interpretation Abnormal (test code = 28283-5) [facility]
== END 2021-08-28 12:56 | disposition home or self-care (01) | DRG 388 ==
LOC: ER 01:55 → ERHOLD 05:38 → OBSVTOIN 20:13 → 4TH 20:43
PROVIDERS: ADMIT Internal Medicine; ATTEND Internal Medicine
DX: K56.7 Ileus, unspecified (principal); U07.1 COVID-19; Z68.41 Body mass index [BMI] 40.0-44.9, adult; K52.9 Noninfective gastroenteritis and colitis, unspecified; E11.9 Type 2 diabetes mellitus without complications; I10 Essential (primary) hypertension; E78.5 Hyperlipidemia, unspecified; K21.9 Gastro-esophageal reflux disease without esophagitis; E66.9 Obesity, unspecified; K76.0 Fatty (change of) liver, not elsewhere classified; R16.0 Hepatomegaly, not elsewhere classified; K57.90 Diverticulosis of intestine, part unspecified, without perforation or abscess without bleeding
CPT/HCPCS: 36415; 71045; 74177; 80048; 80053; 80076; 81003; 82947; 83605; 83690; 83735; 83880; 84484; 85025; 85610; 86803; 93005; 96361; 96365; 96375; 99285; C9113; G0378; J1650; J2270; J2405; J2543; J3010; J3475; J7030; Q9967; U0003

== ENCOUNTER 2021-11-11 17:51 | Emergency (ER) | payer BC ==
--- OUTSIDE RECORDS SUMMARY | 2021-11-11 18:34 | XMS REPORT | Continuity of Care Document ---
:1970 Author Organization [facility] t Address [address] [place] [address] Dr. Almanza. [address] [place] [address] Care Team Providers Name Role Phone Rashaun Matilde Attending Clinician Unavailable NUZHAT YADAV Attending Clinician Unavailable Michelet Attending Clinician Unavailable Loraine WEST, Nuzhat Brito Attending Clinician Deisy Rangel MD Attending Clinician Mark Cloud MD Attending Clinician [phone] Radha Bradshaw Attending Clinician SAUL MCFARLAND Attending Clinician Unavailable Nurse, [facility] Attending Clinician Unavailable Saul Henriquez Attending Clinician Therapy, [facility] Attending Clinician Unavailable Stefany Guerrero NP Attending Clinician STEFANY GUERRERO Attending Clinician Unavailable Doctor Unassigned, Lemay Attending Clinician Unavailable Vick Ambriz Attending Clinician VICK GANDHI Attending Clinician Unavailable NUZHAT YADAV NKPAGE Admitting Clinician Unavailable Baum_L Admitting Clinician Unavailable Payers Payer Name Policy Type Policy Number Effective Date Expiration Date S sachi [facility] [place] [id number] 2020 00:00:00 [employer] PPO POS EPO [id number] 2020 00:00:00 CHOICE Problems Condition Condition Condition Status Onset Resolution Last Treating Co mments Source Name Details Category Date Date Treatment Clinician Date Cellulitis Cellulitis Disease Active [facility] Medica l 00 Center No known No known Disease Unive rs active active ity of problems problems [facility] Allergies, Adverse Reactions, Alerts Allergy Allergy Status Severity Reaction(s) Onset Inactive Treating Comm ents Source Name Type Date Date Clinician NO KNOWN Allergy Active [facility] NO KNOWN Drug Active [facility] [place] [facility] Social History Social Habit Start Date Stop Date Quantity Comments Source Exposure to Yes [facility] SARS-CoV-2 (event) [facility] Sex Assigned At [address] [facility] Medical 00:00:00 00:00:00 Center Smoking Status Start Date Stop Date Source Unknown if ever smoked [facility] Medications Ordered Filled Start Stop Current Ordering [...] Take [address] [facility] (LIPITOR) 7-02 by mouth Luke s 40 MG 11:59: daily Medical tablet 38 lunchtime Center . pantoprazol Yes 40mg QD Take [address] [facility] 7-02 by mouth [facility] (PROTONIX) 11:59: daily. Medic al 40 MG 38 Center tablet multivitami Yes 1{tbl} QD Take [address] [facility] per 7-02 tablet by [facility] tablet 11:59: mouth Medical [...] Take [address] [facility] (LIPITOR) 7-02 by mouth Luke s 40 MG 11:59: daily Medical tablet 38 lunchtime Center . pantoprazol Yes 40mg QD Take [address] [address] [facility] 7-02 by mouth [facility] (PROTONIX) 11:59: daily. Medic al 40 MG 38 Center tablet multivitami Yes 1{tbl} QD Take [address] [facility] per 7-02 tablet by [facility] tablet 11:59: mouth Medical [...] Take [address] [facility] (LIPITOR) 7-02 by mouth Luke s 40 MG 11:59: daily Medical tablet 38 lunchtime Center . pantoprazol 0 Yes 40mg QD Take [address] [address] [facility] 7-02 by mouth [facility] (PROTONIX) 11:59: daily. Medic al 40 MG 38 Center tablet multivitami Yes 1{tbl} QD Take [address] [facility] per 7-02 tablet by [facility] tablet 11:59: mouth Medical 38 daily. Center HYDROcodone Yes Abscess of 1{tbl} Take [address] -acetaminop 7-02 perineum tablet by [facility] hen (NORCO 00:00: [...] Suha es gauge x 00:00: Medical 07/02" Nd 00 [facility] bisacodyL Yes 5mg Take [address] [facility] [address] (DULCOLAX) 7-02 tablet (5 Luke s 5 mg EC 00:00: mg total) Medic al tablet 00 by mouth Center daily as needed for Constipati on. HYDROcodone Yes Abscess of 1{tbl} Take [address] -acetaminop 7-02 perineum tablet by [facility] hen (NORCO 00:00: [...] Suha es gauge x 00:00: Medical 07/02" Nd Center bisacodyL Yes 5mg Take [address] [facility] (DULCOLAX) 7- tablet (5 Luke s 5 mg EC [...] 10U Inject 10 [facility] t lispro -02 Units [facility] (HumaLOG) 00:00: subcutaneo Me dical 100 unit/mL 00 usly 3 Center In (three) times daily before meals. pen needle, Yes Use as [facility] diabetic 31 08-18 directed. Suha es gauge x 00:00: Medical 07/02" Ndle 00 Center bisacodyL Yes 5mg Take [address] [facility] (DULCOLAX) - tablet (5 Luke s 5 mg EC 00:00: mg total) Medic al tablet 00 by mouth Center daily as needed for Constipati on. amoxicillin 0 2020- No 1{tbl} Q.5D Take [address] -clavulanat 08-18- tablet by Andrea mead e 00:00: 23:59 mouth 2 Medical (AUGMENTIN) 00 :00 (two) Center 875-125 mg times per tablet daily for 7 days. doxycycline 0 2020- No 100mg Q.5D Take [address] (MONODOX) 08-18-09 capsule [facility] 100 MG 00:00: 23:59 (100 mg Medical capsule 00 :00 total) by Center mouth 2 (two) times daily for 7 days. amoxicillin 0 2020- No 1{tbl} Q.5D Take [address] -clavulanat -03 26- tablet by Andrea mead e 00:00: 23:59 mouth 2 Medical (AUGMENTIN) 00 :00 (two) Center 875-125 mg times per tablet daily for 7 days. doxycycline 2020- No 100mg Q.5D Take [address] (MONODOX) 08-18-09 capsule [facility] 100 MG 00:00: 23:59 (100 mg Medical capsule 00 :00 total) by Center mouth 2 (two) times daily for 7 days. proMETHazin 2020- No 12.5mg 12.5 mg, Univers e 03-19 IV ity of (PHENERGAN) 07:15: 07:15 [place], [place] 12.5 mg in 00 :00 ONCE, 1 Medica l NaCl 0.9% dose, Sun Branc h (NS) 50 mL 03/19/20 at piggyback 0115, 50 mL NaCl 0.9% 2020- No 1000mL at 999 Uni vers (NS) bolus 03-19 mL/hr, ity of infusion 03:45: 05:00 1,000 mL, [place] as 1,000 mL 00 :00 IV Medical Infusion, Branch ONCE, 1 dose, 03/18/20 at 2145, STAT proMETHazin 2020- No 12.5mg 12.5 mg, Univers e 03-19 IV ity of (PHENERGAN) 03:00: 03:00 Piggyback, [place] 12.5 mg in 00 :00 ONCE, 1 Medica l NaCl 0.9% dose, Sat Branc h (NS) 50 mL 03/18/20 at piggyback 2100, 50 mL NaCl 0.9% 2020- No 500mL at 999 Univ ers (NS) bolus 03-19 mL/hr, 500 it y of infusion 02:15: 02:30 mL, IV [place] 500 mL 00 :00 Infusion, Medical ONCE, 1 Branch dose, 03/18/20 at 2015, STAT ondansetron 2020- No 4mg 4 mg, Slow Univers (ZOFRAN 03-19 IV Push, ity of (PF)) 02:15: 01:31 ONCE, 1 [place] injection 4 00 :00 dose, Sat Med ical mg 03/18/20 at Branch 2015, KACY proMETHazin Yes [id number] 25mg Insert 1 Univers e - Suppositor ity of (PHENERGAN) 00:00: y [place] 25 mg 00 rectum Medical suppository every 4 Branc h (four) hours as needed for Nausea and Vomiting (N/V). bamlanivima 2020- No 700mg 700 mg, IV Univers b (EUA) 700 03-15 Infusion, it y of mg in NaCl 16:45: 17:30 ONCE, Wed [place] 0.9% (NS) 00 :00 03/15/20 at [facility] thelma 270 mL 1045, For Branch infusion 1 dose
Ad water sander as an IV infusion over 60 minutes [...] (68?F to 77?F) including infusion time.
bamlanivima No 700mg 700 mg, IV Univers b (EUA) 700 03-15 Infusion, it y of mg in NaCl 16:45: 17:30 ONCE, Wed [place] 0.9% (NS) 00 :00 03/15/20 at [facility] thelma 270 mL 1045, For Branch infusion 1 dose
Ad water sander as an IV infusion over 60 minutes [...] No 4mg 4 mg, Slow Univers (ZOFRAN 03-13 IV Push, ity of (PF)) 01:15: 00:14 ONCE, 1 [place] injection 4 00 :00 dose, [place] Med ical mg 03/12/20 at Branch 1915, KACY ketorolac 2020- No 30mg 30 mg, Unive rs (TORADOL) 03-13 Slow IV ity of injection 01:00: 00:14 Push, [place] 30 mg 00 :00 ONCE, 1 Medical dose, [facility] 03/12/20 at 1900, Routine
membership director approving Restricted medication : DREVER, STEFANY G NaCl 0.9% 2020- No 1000mL at 999 Uni vers (NS) bolus 03-13 mL/hr, ity of infusion 00:15: 02:45 1,000 mL, [place] as 1,000 mL 00 :00 IV Medical Infusion, [place] ONCE, 1 dose, [place] 03/12/20 at 1815, KACY ondansetron Yes [id number] 4mg Take 1 Univers (ZOFRAN 1-24 tablet by ity of ODT) 4 mg 00:00: mouth [place] disintegrat 00 every 8 Medic al ing tablet (eight) Branch hours as needed for Nausea and Vomiting (N/V). ibuprofen Yes [id number] 800mg Take 1 Univers 800 mg 1-24 tablet by ity of tablet 00:00: mouth [place] 00 every 6 Medical (six) Branch hours as needed for Pain (scale 1-3) or Temp > 38.5 C. ondansetron 0 Yes [id number] 4mg Take 1 Univers (ZOFRAN 1-24 tablet by ity of ODT) 4 mg 00:00: mouth [place] disintegrat 00 every 8 Medic al ing tablet (eight) Branch hours as needed for Nausea and Vomiting (N/V). ibuprofen Yes [id number] 800mg Take 1 Univers 800 mg 1-24 tablet by ity of tablet 00:00: mouth [place] 00 every 6 Medical (six) Branch hours as needed for Pain (scale 1-3) or Temp > 38.5 C. ondansetron 0 Yes [id number] 4mg Take 1 Univers (ZOFRAN 1-24 tablet by ity of ODT) 4 mg 00:00: mouth [place] disintegrat 00 every 8 Medic al ing tablet (eight) Branch hours as needed for Nausea and Vomiting (N/V). ibuprofen Yes [id number] 800mg Take 1 Univers 800 mg 1-24 tablet by ity of tablet 00:00: mouth [place] 00 every 6 Medical (six) Branch hours as needed for Pain (scale 1-3) or Temp > 38.5 C. ondansetron Yes [id number] 4mg Take 1 Univers (ZOFRAN 1-24 tablet by ity of ODT) 4 mg 00:00: mouth [place] disintegrat 00 every 8 Medic al ing tablet (eight) Branch hours as needed for Nausea and Vomiting (N/V). ibuprofen Yes [id number] 800mg Take 1 Univers 800 mg 1-24 tablet by ity of tablet 00:00: mouth [place] 00 every 6 Medical (six) Branch hours as needed for Pain (scale 1-3) or Temp > 38.5 C. ondansetron Yes [id number] 4mg Take 1 Univers (ZOFRAN 1-24 tablet by ity of ODT) 4 mg 00:00: mouth [place] disintegrat 00 every 8 Medic al ing tablet (eight) Branch hours as needed for Nausea and Vomiting (N/V). ibuprofen Yes [id number] 800mg Take 1 Univers 800 mg 1-24 tablet by ity of tablet 00:00: mouth [place] 00 every 6 Medical (six) Branch hours as needed for Pain (scale 1-3) or Temp > 38.5 C. ondansetron 0 Yes [id number] 4mg Take 1 Univers (ZOFRAN 1-24 tablet by ity of ODT) 4 mg 00:00: mouth [place] disintegrat 00 every 8 Medic al ing tablet (eight) Branch hours as needed for Nausea and Vomiting (N/V). ibuprofen 0 Yes [id number] 800mg Take 1 Univers 800 mg 1-24 tablet by ity of tablet 00:00: mouth [place] every 6 Medical (six) Branch hours as needed for Pain (scale 1-3) or Temp > 38.5 C. lisinopriL 0 Yes TAKE 1 Unive rs 10 mg 1-04 TABLET BY ity of tablet 00:00: MOUTH [place] EVERY DAY Medical Branch lisinopriL 0 Yes TAKE 1 Unive rs 10 mg 1-04 TABLET BY ity of tablet 00:00: MOUTH [place] EVERY DAY Medical Branch lisinopriL 0 Yes TAKE 1 Unive rs 10 mg 1-04 TABLET BY ity of tablet 00:00: MOUTH [place] EVERY DAY Medical Branch lisinopriL 0 Yes TAKE 1 Unive rs 10 mg 1-04 TABLET BY ity of tablet 00:00: [facility] EVERY DAY Medical Branch lisinopriL 0 Yes TAKE 1 Unive rs 10 mg 1-04 TABLET BY ity of tablet 00:00: [facility] EVERY DAY Medical Branch lisinopriL 0 Yes TAKE 1 Unive rs 10 mg 1-04 TABLET BY ity of tablet 00:00: [facility] EVERY DAY Medical Branch atorvastati 2019-02 Yes 40mg Take 40 mg Univers n 40 mg 2-18 by mouth. ity of tablet 00:00: [place] [facility] atorvastati 2019-02 Yes 40mg Take 40 mg Univers n 40 mg 2-18 by mouth. ity of tablet 00:00: [place] [facility] atorvastati 2019-02 Yes 40mg Take 40 mg Univers n 40 mg 2-18 by mouth. ity of tablet 00:00: [place] [facility] atorvastati 2019-02 Yes 40mg Take 40 mg Univers n 40 mg 2-18 by mouth. ity of tablet 00:00: [place] [facility] atorvastati 2019-02 Yes 40mg Take 40 mg Univers n 40 mg 2-18 by mouth. ity of tablet 00:00: [place] [facility] atorvastati 2019-02 Yes 40mg Take 40 mg Univers n 40 mg 2-18 by mouth. ity of tablet 00:00: [place] [facility] metFORMIN 2019-02 Yes TAKE 2 Univer s 500 mg 2-17 TABLETS BY ity of tablet 00:00: [facility] EVERY Medical MORNING Branch AND EVERY EVENING metFORMIN 2019-02 Yes TAKE 2 Univer s 500 mg 2-17 TABLETS BY ity of tablet 00:00: MOUTH EVERY Medical MORNING Branch AND EVERY EVENING metFORMIN 2019-02 Yes TAKE 2 Univer s 500 mg 2-17 TABLETS BY ity of tablet 00:00: MOUTH [place] EVERY Medical MORNING Branch AND EVERY EVENING metFORMIN 2019-02 Yes TAKE 2 Univer s 500 mg 2-17 TABLETS BY ity of tablet 00:00: MOUTH [place] EVERY Medical MORNING Branch AND EVERY EVENING metFORMIN 2019-02 Yes TAKE 2 Univer s 500 mg 2-17 TABLETS BY ity of tablet 00:00: MOUTH [place] EVERY Medical MORNING Branch AND EVERY EVENING metFORMIN 2019-02 Yes TAKE 2 Univer s 500 mg 2-17 TABLETS BY ity of tablet 00:00: MOUTH [place] EVERY Medical MORNING Branch AND EVERY EVENING semaglutide 2019-02 Yes 1{tbl} Take 1 Un [place] (RYBELSUS) 1-30 tablet by ity of 3 mg Tab 00:00: mouth. [place] [facility] semaglutide 2019-02 Yes 1{tbl} Take 1 Un [place] (RYBELSUS) 1-30 tablet by ity of 3 mg Tab 00:00: mouth. [place] [facility] semaglutide 2019-02 Yes 1{tbl} Take 1 Un [place] (RYBELSUS) 1-30 tablet by ity of 3 mg Tab 00:00: mouth. [place] [facility] semaglutide 2019-02 Yes 1{tbl} Take 1 Un [place] (RYBELSUS) 1-30 tablet by ity of 3 mg Tab 00:00: mouth. [place] [facility] semaglutide 2019-02 Yes 1{tbl} Take 1 Un [place] (RYBELSUS) 1-30 tablet by ity of 3 mg Tab 00:00: mouth. [place] [facility] semaglutide 2019-02 Yes 1{tbl} Take 1 Un [place] (RYBELSUS) 1-30 tablet by ity of 3 mg Tab 00:00: mouth. [place] [facility] Vital Signs Vital Name Observation Time Observation Value Comments Source HEIGHT 2020-08-14 04:00:00 180.3 cm WEIGHT 2020-08-14 04:00:00 124.739 kg HEIGHT 2020-08-14 04:00:00 180.3 cm WEIGHT 2020-08-14 04:00:00 124.739 kg Systolic blood 2020-03-19 06:42:06 137 mm[Hg] Univer sity of pressure [place] [facility] Diastolic blood 2020-03-19 06:42:06 92 mm[Hg] Unive rsity of pressure [place] [facility] Heart rate 2020-03-19 06:42:06 90 /min Universi ty [facility] [place] [facility] Respiratory rate 2020-03-19 06:42:06 17 /min Univ ersity of [place] [facility] Oxygen saturation in 2020-03-19 06:42:06 97 /min University of Arterial blood by [place] [employer] thelma Pulse oximetry Branch Body temperature 2020-03-19 00:47:00 37.22 Nafisa Univ ersity [facility] [place] [facility] Body weight 2020-03-19 00:47:00 122.471 kg Universi ty of [place] [facility] Systolic blood 2020-03-19 00:15:00 126 mm[Hg] Univer sity of pressure [place] [facility] Diastolic blood 2020-03-19 00:15:00 84 mm[Hg] Unive rsity of pressure [place] [facility] Heart rate 2020-03-19 00:15:00 102 /min [facility] [place] [facility] Body temperature 2020-03-19 00:15:00 36.83 Nafisa Univ ers[facility] [place] [facility] Respiratory rate 2020-03-19 00:15:00 20 /min Univ ersity [facility] [place] [facility] Oxygen saturation in 2020-03-19 00:15:00 95 /min University of Arterial blood by [place] [employer] thelma Pulse oximetry Branch Systolic blood 2020-03-15 17:31:00 [...] 95 /min University of Arterial blood by [place] [employer] thelma Pulse oximetry Branch Body weight 2020-03-15 15:55:00 122.471 kg Universi ty of [place] [facility] [place] Systolic blood 2020-03-15 17:31:00 144 mm[Hg] Univer sity of [facility] Branch Diastolic blood 2020-03-15 17:31:00 88 mm[Hg] Unive rsity of [facility] [place] Heart rate 2020-03-15 17:31:00 86 /min Universi ty [facility] [place] [facility] [place] Body temperature 2020-03-15 17:31:00 36.94 Nafisa Univ ersity of [place] [facility] Respiratory rate 2020-03-15 17:31:00 18 /min Univ ersity of [place] [facility] [place] Oxygen saturation in 2020-03-15 17:31:00 95 /min University of Arterial blood by [facility] Pulse oximetry Branch Body weight 2020-03-15 15:55:00 122.471 kg Universi ty of [place] [facility] [place] Heart rate 2020-03-13 02:30:00 87 /min Universi ty [facility] [place] [facility] [place] Respiratory rate 2020-03-13 02:30:00 25 /min Univ ersity of [place] [facility] [place] Oxygen saturation in 2020-03-13 02:30:00 92 /min University of Arterial blood by [facility] Pulse oximetry Branch Systolic blood 2020-03-13 02:00:00 107 mm[Hg] Univer sity of [facility] [place] Diastolic blood 2020-03-13 02:00:00 60 mm[Hg] Unive rsity of [facility] Body temperature 2020-03-12 23:41:00 38.17 Nafisa Univ ersity of [place] [facility] [place] Body weight 2020-03-12 23:41:00 126.1 kg Universi ty of [place] [facility] [place] Systolic blood 2020-08-18 08:00:00 131 mm[Hg] [facility] St [facility] Diastolic blood 2020-08-18 08:00:00 78 mm[Hg] [facility] S t [facility] Heart rate 2020-08-18 08:00:00 67 /min [facility] L [facility] Body temperature 2020-08-18 08:00:00 36.28 Nafisa [facility] Respiratory rate 2020-08-18 08:00:00 18 /min [facility] Oxygen saturation in 2020-08-18 08:00:00 95 /min [facility] Arterial blood by Medical Ce nter Pulse oximetry Body height 2020-08-14 04:00:00 180.3 cm [facility] Body weight 2020-08-14 04:00:00 124.739 kg [facility] BMI 2020-08-14 04:00:00 38.35 kg/m2 [facility] Procedures Procedure Date / Time Performing Clinician Source Performed HEPATITIS C ANTIBODY 2021-08-27 04:29:00 [facility] POCT-GLUCOSE METER 2020-08-18 07:49:00 [facility] BASIC METABOLIC PANEL 2020-08-18 05:24:00 Ai [facility] (7) [facility] CBC W/PLT COUNT & AUTO 2020-08-18 05:20:00 Aurea [facility] DIFFERENTIAL [facility] (MANUAL DIFFERENTIAL) 2020-08-18 05:20:00 Shie[facility] CBC W/PLT COUNT & AUTO 2020-08-18 05:20:00 [facility] DIFFERENTIAL [facility] POCT-GLUCOSE METER 2020-08-17 20:14:00 [facility] POCT-GLUCOSE METER 2020-08-17 16:32:00 Ai [facility] POCT-GLUCOSE METER 2020-08-17 11:05:00 [facility] CBC W/PLT COUNT & AUTO 2020-08-17 08:09:00 Aurea [facility] DIFFERENTIAL [facility] (MANUAL DIFFERENTIAL) 2020-08-17 08:09:00 Ai [facility] MAGNESIUM 2020-08-17 08:09:00 Ai [facility] BASIC METABOLIC PANEL 2020-08-17 08:09:00 Aurea [facility] (7) [facility] CBC W/PLT COUNT & AUTO 2020-08-17 08:09:00 Ai [facility] DIFFERENTIAL [facility] VANCOMYCIN LEVEL, 2020-08-17 05:27:00 Deisy Rangel [facility] POCT-GLUCOSE METER 2020-08-16 21:08:00 Aureaeh [facility] POCT-GLUCOSE METER 2020-08-16 17:01:00 Aureaeh [facility] POCT-GLUCOSE METER 2020-08-16 11:49:00 Aureaeh [facility] POCT-GLUCOSE METER 2020-08-16 08:34:00 Ai [facility] CBC W/PLT COUNT & AUTO 2020-08-16 04:52:00 Loraine [facility] BASIC METABOLIC PANEL 2020-08-16 04:52:00 Loraine [facility] (7) [facility] CBC W/PLT COUNT & AUTO 2020-08-16 04:52:00 Loraine [facility] POCT-GLUCOSE METER 2020-08-15 21:29:00 [facility], 2020-08-15 20:14:00 Micha Sanchez [facility] POCT-GLUCOSE METER 2020-08-15 16:54:00 Deisy Rangel [facility] POCT-GLUCOSE METER 2020-08-15 11:07:00 Deisy Rangel [facility] POCT-GLUCOSE METER 2020-08-15 07:22:00 [facility] & AUTO 2020-08-15 04:15:00 Loraine [facility] DIFFERENTIAL Center BASIC METABOLIC PANEL 2020-08-15 04:15:00 Loraine [facility] (7) Center CBC W/PLT COUNT & AUTO 2020-08-15 04:15:00 Nuzhat Yadav [facility] DIFFERENTIAL Center POCT-GLUCOSE METER 2020-08-14 20:59:00 Juan Carlos [facility] CT ABDOMEN/PELVIS WITH 2020-08-14 18:18:00 Darrian Jurado Maraya [facility] IV CONTRAST Center SARS-COV2/RT-PCR ([facility] 2020-08-14 17:12:00 Darrian Jurado [facility] & REF LABS) Center POCT-GLUCOSE METER 2020-08-14 16:42:00 [facility] POCT-GLUCOSE METER 2020-08-14 11:10:00 [facility] US TESTICULAR (SCROTUM) 2020-08-14 08:55:00 [facility] PO[facility]-GLUCOSE METER 2020-08-14 07:22:00 Juan Carlos [facility] URINE CULTURE 2020-08-14 07:01:00 Loraine [facility] URINALYSIS W/ REFLEX 2020-08-14 07:01:00 [facility] Center BLOOD CULTURE 2020-08-14 06:56:00 Loraine [facility] CBC W/PLT COUNT & AUTO 2020-08-14 05:47:00 [facility] 2020-08-14 05:47:00 Loraine [facility] (7) Center HEMOGLOBIN A1C 2020-08-14 05:47:00 Dottie [facility] PROTHROMBIN TIME/INR 2020-08-14 05:47:00 Nuzhat Yadav [facility] MAGNESIUM 2020-08-14 05:47:00 Loraine [facility] PHOSPHORUS 2020-08-14 05:47:00 Loraine [facility] Center CBC W/PLT COUNT & AUTO 2020-08-14 05:47:00 [facility] POCT-GLUCOSE METER 2020-08-14 04:10:00 Nuzhat Yadav [facility] BASIC METABOLIC PANEL 2020-03-19 05:19:00 Radha Oliveira Tammy [facility] (NA, K, CL, CO2, Medical Branch GLUCOSE, BUN, CREATININE, CA) AC VBG + LACTIC ACID 2020-03-19 03:24:00 Radha Oliveira Tammy [facility] URINALYSIS 2020-03-19 02:34:00 Tee [facility] LIPASE 2020-03-19 01:30:00 Radha Oliveira [facility] MAGNESIUM 2020-03-19 01:30:00 Tee [facility] COMP. METABOLIC PANEL 2020-03-19 01:30:00 Radha Oliveira [facility] ([id number]) [facility] Branch CBC WITH DIFF 2020-03-19 01:29:00 [facility] CONSENT/REFUSAL FOR 2020-03-19 00:39:12 Doctor Unassigned, No [facility] DIAGNOSIS AND TREATMENT [facility] [id number] CONSENT 2020-03-15 06:01:00 Doctor Unassigned, No [facility] Name [facility] XR CHEST 1 VW 2020-03-13 00:48:13 Stefany Guerrero [facility] LIPASE 2020-03-13 00:11:00 Stefany Guerrero [facility] HEPATIC FUNCTION PANEL 2020-03-13 00:11:00 Stefany Guerrero [facility] ([id number]) (ALB,T.PRO,BILI Medical Branch T,BU/BC,ALT,AST,ALK PHOS) BASIC METABOLIC PANEL 2020-03-13 00:11:00 Stefany Guerrero [facility] (NA, K, CL, CO2, Medical Branch GLUCOSE, BUN, CREATININE, CA) CBC WITH DIFF 2020-03-13 00:11:00 Stefany Guerrero [facility] URINALYSIS 2020-03-13 00:11:00 Stefany Guerrero [facility] ADC,CLC OR LCC ONLY - 2020-03-13 00:11:00 Stefany Guerrero [facility] INFLUENZA A & B DIRECT Medical B ranch ANTIGEN COVID-19 (ID NOW RAPID 2020-03-13 00:11:00 Stefany Guerrero [facility] TESTING) Medical Branch NOTICE OF PRIVACY 2020-03-12 23:39:50 Doctor Unassigned, No [facility] PRACTICES Name Medical Branch CONSENT/REFUSAL FOR 2020-03-12 23:39:34 [facility] Name [facility] Plan of Care Planned Activity Planned Date Details Comments Source Future Scheduled 2023-03-26 Lipid panel (procedure) [facility] Test 00:00:00 [code = [id number]] Medical Ce nter Future Scheduled 2023-03-26 Lipid panel (procedure) [facility] Test 00:00:00 [code = [id number]] Medical Ce nter Future Scheduled 2023-03-26 Lipid panel (procedure) [facility] Test 00:00:00 [code = [id number]] Medical Ce nter Future Scheduled 2021-10-18 INFLUENZA VACCINE (#1) [facility] 00:00:00 [code = INFLUENZA Medical Ce nter VACCINE (#1)] Future Scheduled 2021-08-10 SHINGLES VACCINES ([address] [facility] 00:00:00 2) [code = SHINGLES Medical Center VACCINES (1 of 2)] Future Scheduled 2021-02-[address] [facility] Test 00:00:00 (12+) [code = Medical Center DEPRESSION SCREENING (12+)] Future Scheduled 2020-11-[address] [facility] 00:00:00 measurement (procedure) [facility] [code = 70496183] Future Scheduled 2020-11-[address] [facility] 00:00:00 measurement (procedure) [facility] [code = 70915953] Future Scheduled 2020-11-[address] [facility] 00:00:00 measurement (procedure) [facility] [code = 54140505] Future Scheduled 2020-10-18 INFLUENZA VACCINE (#1) [facility] [code = INFLUENZA Medical Ce nter VACCINE (#1)] Future Scheduled 2020-10-18 INFLUENZA VACCINE (#1) [facility] 00:00[facility]00 [code = INFLUENZA Medical Ce nter VACCINE (#1)] Future Scheduled 2020-02-[address] [facility] Test 00:00:00 (12+) [code = [facility] Center DEPRESSION SCREENING (12+)] Future Scheduled 2020-02-[address] [facility] Test 00:00:00 (12+) [code = [facility] Center DEPRESSION SCREENING (12+)] Future Scheduled [...] (1)] Future Scheduled 1981-08-10 DIABETIC EYE EXAM [code [facility] 00:00:00 = DIABETIC EYE EXAM] [facility] Center Future Scheduled 1981-08-[address] [facility] 00:[facility]:00 examination Medical Center (regime/therapy) [code = 495702835] Future Scheduled 1981-08-10 Urine screening for [facility] 00:00:00 protein (procedure) Medical Center [code = 004532185] Future Scheduled 1981-08-10 DIABETIC EYE EXAM [code [facility] 00:00:00 = DIABETIC EYE EXAM] Medical Center Future Scheduled 1981-08-[address] 00:[facility]:00 examination Medical Center (regime/therapy) [code = 819115496] Future Scheduled 1981-08-10 Urine screening for [facility] 00:00:00 protein (procedure) Medical Center [code = 539780018] Future Scheduled 1981-08-10 DIABETIC EYE EXAM [code [facility] 00:00:00 = DIABETIC EYE EXAM] Medical Center Future Scheduled 1981-08-10 Urine screening for [facility] 00:00:00 protein (procedure) Medical Center [code = 739722176] Future Scheduled 1977-08-[address] [facility]00 0-64 YRS (1 - PCV) Medical C enter [code = PNEUMOCOCCAL VACCINE 0-64 YRS (1 - PCV)] Future Scheduled 1972-02-10 COVID-19 VACCINE (#1) [facility]:00 [code = COVID-[address] VACCINE (#1)] Future Scheduled 1971 Screening for malignant [facility] Test 00:00:00 neoplasm of colon Medical Ce nter (procedure) [code = 442582226] Future Scheduled 1971 Screening for malignant [facility] Test 00:00:00 neoplasm of colon Medical Ce nter (procedure) [code = 647524842] Future Scheduled 1971 Screening for malignant [facility] Test 00:00:00 neoplasm of colon Medical Ce nter (procedure) [code = 028580935] Future Scheduled 1971 Screening for malignant [facility] Test 00:00:00 neoplasm of colon Medical Ce nter (procedure) [code = 931689468] Future Scheduled 1971 Sigmoidoscopy [code = [facility] S[facility]oidoscopy] Medical Cente r Future Scheduled 1971 CT Colonography (combo) [facility] 00:00:00 [code = CT Colonography [facility] (combo)] Future Scheduled 1971 Screening for malignant [facility] Test 00:00:00 neoplasm of colon Medical Ce nter (procedure) [code = 870534528] Future Scheduled 1971 Screening for malignant [facility] Test 00:00:00 neoplasm of colon Medical Ce nter (procedure) [code = 536823925] Encounters Start End Encounter Admission Attending Care Care Encounter Source Date/Time Date/Time Type Type Clinicians Facility Department ID 2021-03-14 Outpatient [facility] [id number] Common 13:31:16 [id number] [facility] 2021-03-14 Outpatient Rodney, [facility] [id number] Common 13:16:25 Avnee [id number] [facility] 2020-12-16 Emergency [facility] [id number] Univers 22:17:29 ity [facility] 2020-12-16 Emergency [facility] [id number] Univers 20:[facility] [id number] [facility] 03:51:00 NUZHAT 2021-08-27 2021-08-27 Lab [facility] [id number] 00:00:00 00:00:00 Requisitio Suha [facility] 2020-12-20 2020-12-20 Outpatient Baum_L [facility] [id number] [place] 11:25:00 11:25:00 [id number] [facility] 2020-08-14 2020-08-18 Hospital Nuzhat Pratt [facility] [id number] 03:51:00 11:45:00 Encounter Deisy Rangel [facility] 2020-08-14 2020-08-14 Travel [facility] [id number] [facility] 00:[facility]00 [facility] 2020-08-07 2020-08-07 [facility] [id number] Common 00:00:00 00:00:00 [facility] 2020-08-04 2020-08-04 [facility] [id number] Common 00:00:00 00:00:00 [facility] 2020-03-18 2020-03-19 Emergency Tee, K [facility] [id number] Univers 18:44:00 00:48:00 Tammy [place] 350.1.13.10 i ty [facility] 4.2.7.2.686 [facility] [phone] [place] [id number] [place] 2020-03-18 2020-03-18 [facility] [id number] Univers 18:30:00 18:30:00 [facility] 2020-03-18 2020-03-18 Nurse Nurse, [facility] Urgent Care [facility] 1.2 .840.114 [id number] Univers 18:29:02 18:29:11 [facility] 350.1.13.[address] [facility] 4.2.7.2.686 [facility] [phone] [place] [address] [address] Office [address] One 2020-03-18 2020-03-18 Outpatient R [facility] [id number] Univers 17:40:00 17:40:00 [id number] [facility] 2020-03-18 2020-03-18 [facility] [id number] Univers 17:40:00 17:40:[facility] 2020-03-15 2020-03-15 Nurse Therapy, [facility] 1.2.840.114 [id number] 09:44:59 18:56:55 Visit [facility] Covid SPECIALTY 350.1.13.10 Infusion CARE 4.2.7.2.686 CENTER AT [phone] ROME Lopes [facility] [place] 2020-03-15 2020-03-15 Nurse Therapy, [facility] Covid Infusion [facility] 1.2.840.114 [id number] Univers 09:44:59 18:56:55 Visit Stefany Guerrero SPECIALTY 350.1.13.10 ity of CARE 4.2.7.2.686 [facility] CENTER AT [phone] Nm dicashlee Lopes [facility] 2020-03-15 2020-03-15 Outpatient R [facility] [id number] Univers 09:30:00 09:30:00 [id number] ity [facility] 2020-03-15 2020-03-15 [facility] [id number] Univers 09:30:00 09:30:00 STEFANY [facility] 2020-03-15 2020-03-15 Orders Doctor COLMENARES 1.2.840.114 [id number] 00:00:00 00:00:00 Only Unassigned, JUAN JOSE 350.1.13.10 Lemay [facility] 4.2.7.2.686 [phone] [facility] 2020-03-15 2020-03-15 Orders Doctor DARRIAN 1.2.840.114 [id number] Univers 00:00:00 00:00:00 Only Unassigned, JUAN JOSE 350.1.13.10 ity of Lemay [facility] 4.2.7.2.686 [place] as [phone] [address] 2020-03-14 2020-03-14 [facility] [id number] Univers 09:00:00 09:00:00 STEFANY [facility] 2020-03-12 2020-03-12 Emergency Vick Gandhi [facility] 1.2.840 .114 [id number] Univers 17:49:00 21:01:00 Stefany Guerrero [place] 350.1.13.10 ity of [place] 4.2.7.2.686 [facility] [phone] [place] 802484 [place] 2020-03-12 2020-03-12 Emergency X HIRAM, [facility] ERT [id number] Univers 17:32:00 17:32:00 VICK maryloulaurita [facility] Results Test Description Test Time Test Comments Results Result Comments Source Hepatitis C antibody 2021-08-27 10:38:58 Test Item Value Reference Range Interpretation Comme nts Hepatitis C Ab (test code = 75101-7) Nonreactive Nonreactive ЕЛЕНА (test code = ЕЛЕНА) Equipment Application Specialist ID - DB Lab Interpretation (test code = 09071-3) Normal [facility] [id number] 10:38:58 Test Item Value Reference Range Interpretation Comments HEPATITIS C ANTIBODY (BEAKER) Nonreactive Nonreactive (test code = 367) Equipment Application Specialist ID - DBBlood Culture - Routine (Left Venipuncture)2020-08-19 10:01:00 Test Item Value Reference Range Interpretation Comments Result (test code = No growth in 5 days 6463-4) [facility] (Left Venipuncture)2020-08-19 10:01:00 Test Item Value Reference Range Interpretation Comments Result (test code = No growth in 5 days 6463-4) [facility] [id number] 10:01:00 Test Item Value Reference Range Interpretation Comments CULTURE (BEAKER) (test No growth in 5 days code = 1095) BLOOD [id number] 10:01:00 Test Item Value Reference Range Interpretation Comments CULTURE (BEAKER) (test No growth in 5 days code = 1095) POC-Glucose [id number] 08:00:00 Test Item Value Reference Range Interpretation Comments POC-Glucose Meter (test 249 mg/dL 70-110 H : TE STED AT [facility] code = 1538) [address] [place] [address] 164[address]: Equipment Application Specialist/Techni adrian ID = [id number] for Estevan Bright Lab Interpretation (test Abnormal code = 75468-1) [facility]ucose [id number] 08:00:00 Test Item Value Reference Range Interpretation Comments POC-Glucose Meter (test 249 mg/dL 70-110 H : TE STED AT [facility] code = 1538) [address], [facility] [address]: Equipment Application Specialist/Techni adrian ID = [id number] for Estevan Bright Lab Interpretation (test Abnormal code = 63623-0) [facility] Center[facility]SE [id number] 08:00:00 Test Item Value Reference Range Interpretation Comments POC-GLUCOSE METER 249 mg/dL 70-110 H : TESTED A T [facility] 1317 (BEAKER) (test code [address], = 1538) [facility] 77 478: Equipment Application Specialist/Techni adrian ID = [id number] for Ventura Aguilar CBC with platelet count + automated [id number] 05:55:00 Test Item Value Reference Range Interpretation Comments WBC (test code = 6690-2) 4.8 See_Comment [A utomated message] The system Equivalent DATA generated this result transmitted ref erence range: 4.0 - 10 .0 K/L. The refe rence range was not u sed to interpret this result as normal/abnor mal. RBC (test code = 789-8) 4.22 See_Comment [Au tomated message] The system Equivalent DATA generated this result transmitted ref erence range: 4.20 - 5 .80 M/L. The refe rence range was not u sed to interpret this result as normal/abnor mal. MCHC (test code = 786-4) 33.5 See_Comment L [A utomated message] The system Equivalent DATA generated this result transmitted ref erence range: [...] See_Comment [Aut omated message] 777-3) The system Equivalent DATA generated this result transmitted ref erence range: 150 - 43 0 K/CU MM. The referen ce range was not u sed to interpret this result as normal/abnor mal. MPV (test code = 10.3 fL 6.0-11.5 62056-6) nRBC (test code = 413) 0 See_Comment [Aut omated message] The system Equivalent DATA generated this result transmitted ref erence range: 0 - 0 /1 00 WBC. The refere nce range was not u sed to interpret this result as normal/abnor mal. Lab Interpretation (test Abnormal code = 77367-3) [facility] CenterManual [id number] 05:55:00 Test Item Value Reference Range Interpretation Comments % Neutros (manual) (test 33 % code = 1359) % Lymphs (manual) (test 55 % code = 1360) % Monos (manual) (test 8 % code = 1361) % Eos (manual) (test 4 % code = 1362) # Neutros (manual) (test 1.58 See_Comment L [A utomated message] code = 1365) The system Equivalent DATA generated this result transmitted ref erence range: 1.80 - 8 .00 K/L. The refe rence range was not u sed to interpret this result as normal/abnor mal. # Lymphs (manual) (test 2.64 See_Comment [Au tomated message] code = 1366) The system Equivalent DATA generated this result transmitted ref erence range: 1.48 - 4 .50 K/L. The refe rence range was not u sed to interpret this result as normal/abnor mal. # Monos (manual) (test 0.38 See_Comment [Aut omated message] code = 1367) The system Equivalent DATA generated this result transmitted ref erence range: 0.00 - 1 .30 K/L. The refe rence range was not u sed to interpret this result as normal/abnor mal. # Eos (manual) (test 0.19 See_Comment [Autom ated message] code = 1368) The system Equivalent DATA generated this result transmitted ref erence range: 0.00 - 0 .50 K/L. The refe rence range was not u sed to interpret this result as normal/abnor mal. Total Counted (test code 100 = 1351) WBC Morphology (test Normal code = 487) Platelet Morphology Normal (test code = 486) RBC Morphology (test Normal code = 762) Lab Interpretation (test Abnormal code = 47175-7) [facility] with platelet count + automated quzy0946-08-02 05:55:00 Test Item Value Reference Range Interpretation Comments WBC (test code = 6690-2) 4.8 See_Comment [A utomated message] The system Equivalent DATA generated this result transmitted ref erence range: 4.0 - 10 .0 K/L. The refe rence range was not u sed to interpret this result as normal/abnor mal. RBC (test code = 789-8) 4.22 See_Comment [Au tomated message] The system Equivalent DATA generated this result transmitted ref erence range: 4.20 - 5 .80 M/L. The refe rence range was not u sed to interpret this result as normal/abnor mal. MCHC (test code = 786-4) 33.5 See_Comment L [A utomated message] The system Equivalent DATA generated this result transmitted ref erence range: [...] See_Comment [Aut omated message] 777-3) The system Equivalent DATA generated this result transmitted ref erence range: 150 - 43 0 K/CU MM. The referen ce range was not u sed to interpret this result as normal/abnor mal. MPV (test code = 10.3 fL 6.0-11.5 71229-9) nRBC (test code = 413) 0 See_Comment [Aut omated message] The system Equivalent DATA generated this result transmitted ref erence range: 0 - 0 /1 00 WBC. The refere nce range was not u sed to interpret this result as normal/abnor mal. Lab Interpretation (test Abnormal code = 00940-9) [facility] Center[facility]ual Sueynymzygky0709-97-80 05:55:00 Test Item Value Reference Range Interpretation Comments % Neutros (manual) (test 33 % code = 1359) % Lymphs (manual) (test 55 % code = 1360) % Monos (manual) (test 8 % code = 1361) % Eos (manual) (test 4 % code = 1362) # Neutros (manual) (test 1.58 See_Comment L [A utomated message] code = 1365) The system Equivalent DATA generated this result transmitted ref erence range: 1.80 - 8 .00 K/L. The refe rence range was not u sed to interpret this result as normal/abnor mal. # Lymphs (manual) (test 2.64 See_Comment [Au tomated message] code = 1366) The system Equivalent DATA generated this result transmitted ref erence range: 1.48 - 4 .50 K/L. The refe rence range was not u sed to interpret this result as normal/abnor mal. # Monos (manual) (test 0.38 See_Comment [Aut omated message] code = 1367) The system Equivalent DATA generated this result transmitted ref erence range: 0.00 - 1 .30 K/L. The refe rence range was not u sed to interpret this result as normal/abnor mal. # Eos (manual) (test 0.19 See_Comment [Autom ated message] code = 1368) The system Equivalent DATA generated this result transmitted ref erence range: 0.00 - 0 .50 K/L. The refe rence range was not u sed to interpret this result as normal/abnor mal. Total Counted (test code 100 = 1351) WBC Morphology (test Normal code = 487) Platelet Morphology Normal (test code = 486) RBC Morphology (test Normal code = 762) Lab Interpretation (test Abnormal code = 19807-3) [facility] CenterCBC W/PLT COUNT & AUTO [id number] 05:55:00 Test Item Value Reference Range Interpretation [...] (test code Normal = 762) Basic Metabolic [id number] 05:36:00 Test Item Value Reference Range Interpretation Comments Sodium (test code = 138 meq/L 045-814 3049-2) Potassium (test code = 3.9 meq/L 3.6-5.5 2823-3) Chloride (test code = 105 meq/L 98-106 2075-0) CO2 (test code = 22 meq/L -2027-9) BUN (test code = 4 mg/dL 10-26 L 3094-0) Creatinine (test code 0.91 mg/dL 0.50-1.20 = 2160-0) Glucose (test code = 285 mg/dL 70-110 H 2345-7) Calcium (test code = 9.7 mg/dL 8.5-10.5 68418-5) EGFR (test code = 107 mL/min/1.73 sq m [place] [address]-8) NOT ACCURATE CREATININE CLEARANCE IN PREDICTING GLOMERULAR FILTRATION RATE . ESTIMATED GFR I S NOT APPLICABLE FOR DIALYSIS PATIENTS. ЕЛЕНА (test code = ЕЛЕНА) Equipment Application Specialist ID - [id number] ID - [id number] ID - [id number] ID - exuw42Xvlfpdri ID - xypm17Capshycu ID - iuab56Dwxmctqz ID - xwbu45Hmrrliqx ID - vauj80Ykszikhi ID - nueq95Fpvtlhzt ID - xsdq03Qbsfpeuz ID - vxww34Jgpkbxwg ID - wedg65Cdfhouge ID - zdxs12 Lab Interpretation Abnormal (test code = 12364-3) [facility] CenterBasi Metabolic [id number] 05:36:00 Test Item Value Reference Range Interpretation Comments Sodium (test code = 138 meq/L 614-381 4740-2) Potassium (test code = 3.9 meq/L 3.6-5.5 2823-3) Chloride (test code = 105 meq/L 98-106 2075-0) CO2 (test code = 22 meq/L -2027-9) BUN (test code = 4 mg/dL 10-26 L 3094-0) Creatinine (test code 0.91 mg/dL 0.50-1.20 = 2160-0) Glucose (test code = 285 mg/dL 70-110 H 2345-7) Calcium (test code = 9.7 mg/dL 8.5-10.5 97447-5) EGFR (test code = 107 mL/min/1.73 [place] [address]-5) NOT ACCURATE CREATININE CLEARANCE IN PREDICTING GLOMERULAR FILTRATION RATE . ESTIMATED GFR I S NOT APPLICABLE FOR DIALYSIS PATIENTS. ЕЛЕНА (test code = ЕЛЕНА) Equipment Application Specialist ID - [id number] ID - [id number] ID - nkfm59Rkugbtuc ID - qcng32Cnxccvqn ID - dqhl08Upgijglj ID - cibf92Aickbadx ID - bjjy21Ezblbkce ID - khjj56Ygfqkche ID - psst87Kjtdfzdv ID - rjet65Dxmymyzt ID - pplf20Jrzuazfx ID - lgpx24Ycvjfjml ID - zdxs12 Lab Interpretation Abnormal (test code = 25359-9) [facility] METABOLIC [id number] 05:36:00 Test Item Value Reference Range Interpretation Comments SODIUM (BEAKER) 138 meq/L 135-148 (test code = 381) POTASSIUM (BEAKER) 3.9 meq/L 3.6-5.5 (test code = 379) CHLORIDE (BEAKER) 105 meq/L 98-106 (test code = 382) CO2 (BEAKER) (test 22 meq/L code = 355) BLOOD UREA NITROGEN 4 [...] S NOT APPLICABLE FOR DIALYSIS PATIEN TS. Equipment Application Specialist ID - [id number] ID - [id number] ID - vfbn47Ufkcyimj ID - xvzc67Abamnlfw ID - idec67Bfxrxsfe ID - xwtt22Vkhhovxa ID - vygp04Zdxpfskv ID - aird72Ntjtjzme ID - bxao51Sitszrvi ID - fqqq91Teettmdg ID - vwhf01Kcyfzwll ID - kfgp82Crrkqaqi ID - mrew46YAGD-UZELNMR [id number] 20:26:00 Test Item Value Reference Range Interpretation Comments POC-GLUCOSE METER 183 mg/dL 70-110 H : TESTED A T [facility] 1317 (BEAKER) (test code [address], = 1538) [place] 210218: Equipment Application Specialist/Techni adrian ID = [id number] for Halima Neff POCT-GLUCOSE [id number] 16:44:00 Test Item Value Reference Range Interpretation Comments POC-GLUCOSE METER 196 mg/dL 70-110 H : TESTED A T [facility] 1317 (BEAKER) (test code [address], = 1538) [place] 210218: Equipment Application Specialist/Techni adrian ID = [id number] for Alicia Barcenas POCT-GLUCOSE [id number] 11:16:00 Test Item Value Reference Range Interpretation Comments POC-GLUCOSE METER 320 mg/dL 70-110 H : TESTED A T [facility] [address] (BEAKER) (test code [address], = 1538) [place] 210218: Equipment Application Specialist/Techni adrian ID = [id number] for Alicia Barcenas CBC W/PLT COUNT & AUTO [id number] 09:00:00 Test Item Value Reference Range Interpretation [...] MORPHOLOGY (BEAKER) (test code Normal = 762) [id number] 08:35:00 Test Item Value Reference Range Interpretation Comments Magnesium (test code = 1.9 mg/dL 1.5-3.0 82331-9) ЕЛЕНА (test code = ЕЛЕНА) Equipment Application Specialist ID - [id number] ID - [id number] ID - [id number] ID - [id number] Lab Interpretation (test Normal code = 79295-8) [facility] 08:35:00 Test Item Value Reference Range Interpretation Comments Magnesium (test code = 1.9 mg/dL 1.5-3.0 86500-7) ЕЛЕНА (test code = ЕЛЕНА) Equipment Application Specialist ID - [id number] ID - [id number] ID - [id number] ID - [id number] Lab Interpretation (test Normal code = 37307-9) [facility] 08:35[facility]00 Test Item Value Reference Range Interpretation Comments MAGNESIUM (BEAKER) (test code = 1.9 mg/dL 1.5-3.0 627) Equipment Application Specialist ID - [id number] ID - [id number] ID - [id number] ID - [id number] METABOLIC [id number] 08:34:00 Test Item Value Reference Range Interpretation [...] S NOT APPLICABLE FOR DIALYSIS PATIEN TS. Equipment Application Specialist ID - [id number] ID - [id number] ID - [id number] ID - [id number] ID - NYKSH963Xqqlelzj ID - [id number] ID - [id number] ID - [id number] ID - [id number] ID - [id number] Vancomycin level, ynhopr2488-73-94 06:00:00 Test Item Value Reference Range Interpretation Comments Vancomycin Tr (test code = 11.1 ug/mL 10.0-20.0 4092-3) ЕЛЕНА (test code = ЕЛЕНА) Equipment Application Specialist ID - [id number] Lab Interpretation (test Normal code = 79528-6) [facility] CenterVancom[facility] level, kdpcrh8621-05-00 06:00:00 Test Item Value Reference Range Interpretation Comments Vancomycin Tr (test code = 11.1 ug/mL 10.0-20.0 4092-3) ЕЛЕНА (test code = ЕЛЕНА) Equipment Application Specialist ID - [id number] Lab Interpretation (test Normal code = 18296-2) [facility] CenterVANCOMYCIN LEVEL, [id number] 06:00:00 Test Item Value Reference Range Interpretation Comments VANCOMYCIN TROUGH (BEAKER) (test 11.1 ug/mL 10.0-20.0 code = 522) Equipment Application Specialist ID - [id number] [id number] 21:21:00 Test Item Value Reference Range Interpretation Comments POC-GLUCOSE METER 270 mg/dL 70-110 H : TESTED A T [facility] [address] (BEAKER) (test code [address], = 1538) [place] [address]: Equipment Application Specialist/Techni adrian ID = [id number] for sammi Peter POCT-GLUCOSE [id number] 17:13:00 Test Item Value Reference Range Interpretation Comments POC-GLUCOSE METER 266 mg/dL 70-110 H : TESTED A T [facility] [address] (BEAKER) (test code [address], = 1538) [place] [address]: Equipment Application Specialist/Techni adrian ID = [id number] for Garrett h, Nilam POCT-GLUCOSE [id number] 12:01:00 Test Item Value Reference Range Interpretation Comments POC-GLUCOSE METER 283 mg/dL 70-110 H : TESTED A T [facility] [address] (BEAKER) (test code [address], = 1538) [place] [address]: Equipment Application Specialist/Techni adrian ID = [id number] for GarrettNilam zimmerman POCT-GLUCOSE [id number] 08:47:00 Test Item Value Reference Range Interpretation Comments POC-GLUCOSE METER 253 mg/dL 70-110 H : TESTED A T [facility] [address] (BEAKER) (test code [address], = 1538) [place] [address]: Equipment Application Specialist/Techni adrian ID = [id number] for [place] ins, Nury Urine qrnfmjh6286-61-70 08:39:00 Test Item Value Reference Range Interpretation Comments Result (test code = 6463-4) No growth [facility] [id number] 08:39:00 Test Item Value Reference Range Interpretation Comments Result (test code = 6463-4) No growth [facility] [id number] 06:09:00 Test Item Value Reference Range Interpretation [...] S NOT APPLICABLE FOR DIALYSIS PATIEN TS. Equipment Application Specialist ID - LITOOperator ID - LITOOperator ID - LITOOperator ID - LITOOperator ID - LITOOperator ID - LITOOperator ID - LITOOperator ID - LITOOperator ID - LITOOperator ID - LITOOperator ID - LITOOperator ID - LITOOperator ID - LITOCBC W/PLT COUNT & AUTO [id number] 05:40:00 Test Item Value Reference Range Interpretation [...] PERCENT (BEAKER) (test code = 2801) POCT-GLUCOSE [id number] 21:41:00 Test Item Value Reference Range Interpretation Comments POC-GLUCOSE METER 270 mg/dL 70-110 H : TESTED A T [facility] 1317 (BEAKER) (test code [facility] NT [facility], = 1538) [facility] 77 478: Equipment Application Specialist/Techni adrian ID = [id number] for Lorenza Castanon VANCOMYCIN LEVEL, [id number] 20:39:00 Test Item Value Reference Range Interpretation Comments VANCOMYCIN TROUGH (BEMAGALIE) (test 6.1 ug/mL 10.0-20.0 L code = 522) Equipment Application Specialist ID - [id number] 17:05:00 Test Item Value Reference Range Interpretation Comments POC-GLUCOSE METER 295 mg/dL 70-110 H : Notified RN/MD: TESTED (ABIODUN) (test code AT [facility] [address] = 1538) [facility], [facility] [address]: Equipment Application Specialist/Techni adrian ID = [id number] for Evan Husain CT, [id number] 15:49:00Unlisted Reason for Exam - Click Yes and Enter Reason Below->YesConcern for groin abscessUnlistedReason for Exam->Concern for right groin \\T\\ perineal abscess vs nec fascWill this procedure require oral contrast?->No[facility] : 1970 Sex: MFINAL REPORT TECHNIQUE: CT of the abdomen and pelvis WITH intravenous contrast and WITHOUT oral contrast. Dose modulation, iterative reconstruction, and/or weight-based adjustment of the mA/kV was utilized to reduce [...] adrenal nodules.KIDNEYS/URETERS: No hydronephrosis, stones, or masses.PELVIC ORGANS/BLADDER:Mild diffuse thickening of the urinary bladder wall. PERITONEUM/RETROPERITONEUM: No free air or fluid. Moderate sized, fat filled [...] visualized spine. The entire perineum is not visualized.There are inflammatory changes which are greater in the right gluteal cleft within an the left. No de finite gas is visualized. There is mild thickening of the partially visualized scrotal wall. IMPRESSION: 1.The entire perineum is not visualized. However, the partially visualized right gluteal cleft and scrotum have inflammatory changes without gas to suggest necrotizing fasciitis. No fluid collection is visualized. 2.There is moderate diverticulosis of the sigmoid colon. There is some fat strandingin the adjacent mesentery but no definite single, [...] adjacent to the left colon in the left upper quadrant. 5. Cholelithiasis and/or sludge in the gallbladder without acute cholecystitis. 6.Diffuse fatty infiltration of the liver. Signed: Dennis Huerta Verified Date/Time: 08/15/2020 15:49:43 Reading Location: [facility] Diagnostic Imaging Reading Room - [place] [id number] POCT-GLUCOSE [id number] 11:18:00 Test Item Value Reference Range Interpretation Comments POC-GLUCOSE METER 288 mg/dL 70-110 H : Notified RN/MD: TESTED (BEAKER) (test code AT [address] PO[address] = 1538) [place] [address]: Equipment Application Specialist/Techni adrian ID = [id number] for Dilma garg, Manuelitaben POCT-GLUCOSE [id number] 07:33:00 Test Item Value Reference Range Interpretation Comments POC-GLUCOSE METER 295 mg/dL 70-110 H : Notified RN/MD: TESTED (BEAKER) (test code AT [facility] [address] = 1538) [place] [id number]: Equipment Application Specialist/Techni adrian ID = [id number] for Dilma garg, Manuelitaben BASIC METABOLIC [id number] 05:52:00 Test Item Value Reference Range Interpretation [...] S NOT APPLICABLE FOR DIALYSIS PATIEN TS. Equipment Application Specialist ID - LITOOperator ID - LITOOperator ID - LITOOperator ID - LITOOperator ID - LITOOperator ID - LITOOperator ID - LITOOperator ID - LITOOperator ID - LITOOperator ID - LITOOperator ID - LITOOperator ID - LITOCBC W/PLT COUNT & AUTO [id number] 05:19:00 Test Item Value Reference Range Interpretation [...] PERCENT (BEAKER) (test code = 2801) POCT-GLUCOSE [id number] 21:11:00 Test Item Value Reference Range Interpretation Comments POC-GLUCOSE METER 279 mg/dL 70-110 H : TESTED A T [facility] 1317 (BEAKER) (test code [address], = 1538) [facility] 77 478: Equipment Application Specialist/Techni adrian ID = [id number] for Aanu siem, sammi SARS-CoV2/RT-PCR (Asymptomatic ONLY)2020-08-14 18:18:00 Test Item Value Reference Range Interpretation Comments SARS-COV2/RT-PCR Negative Not Detected, Performanc e of the Xpert (test code = Negative, See Xpress 77178-9) external report SARS-CoV-2/F andrea/RSV test for linked test has only bee n established in nasopharyngeal swab specimens. Use of the Xpert Xpress SARS-CoV-2/Flu/ RSV test with other spec imen types has not b een assessed and pe rformance characteristics are unknown. As wit h any molecular test, mutations withi n the targeted geneti c regions identified by robyn siegel Xpert Xpress SARS-CoV-2/Flu/ RSV test could affect [...] or ot her patient managem ent decisions. Resu lts from the Xpert Xpres s SARS-CoV-2/Flu/ RSV test should be corre lated with the clinic al history, epidem iological data, and other data available to e clinician evalu ating the patient. Invali d test results may occ ur from improper specim en collection; pino andreare to follow the dora mmended sample collecti on, handling, and s torage procedures; dell hnical error. False ne gative results may occ ur if virus is presen t at levels below th e analytical limi t of detection (LOD: 131 copies/mL). Vir al nucleic acid ma y persist in vivo, indepe ndent of virus viability . Detection of an alyte target(s) does not imply that the corres ponding virus(es) are i nfectious or are the caus ative agents for clin ical symptoms. Recen t patient exposure to Flu Mist or other live atte nuated influenza vacci linda may cause inaccurat e positive result s.This test has been a uthorized by FDA under an EUA for use by authoriz ed laboratories. T his test is only authori zed for the duration of the declaration agatha [...] Fact Sh eet for Healthcare Prov iders: https://www.My Ad Box.com/ Documents/Xpert %20Xpress %76AGFD-YwZ-7-F andrea-RSV/30 2-4508%20Rev.%2 0B%20HCP% 20Fact%20Sheet. pdf Fact Sheet for Healt hcare Patients: https://www.My Ad Box.com/ Documents/Xpert %20Xpress %50BLXA-CbO-4-F andrea-RSV/30 2-4507%20Rev.%2 0B%20Pati ent%20Fact%20Sh eet.pdf SARS-COV-2 [facility] Performed at:[facility] PERFORMING LAB [address] (test code = [address] [address]-2) [place] [address] ph: [phone] [facility] (Asymptomatic ONLY)2020-08-14 18:18:00 Test Item Value Reference Range Interpretation Comments SARS-COV2/RT-PCR Negative Not Detected, Performanc e of the Xpert (test code = Negative, See Xpress 11125-3) external report SARS-CoV-2/F andrea/RSV test for linked test has only bee n established in nasopharyngeal swab specimens. Use of the Xpert Xpress SARS-CoV-2/Flu/ RSV test with other spec imen types has not b een assessed and pe rformance characteristics are unknown. As wit h any molecular test, mutations withi n the [...] or ot her patient managem ent decisions. Resu lts from the Xpert Xpres s SARS-CoV-2/Flu/ RSV test should be corre lated with the clinic al history, epidem iological data, and other data available to th e clinician evalu ating the patient. Invali d test results may occ ur from improper specim en collection; pino lure to follow the dora mmended sample collecti on, handling, and s torage procedures; dell hnical error. False ne gative results may occ ur if virus is presen t at levels below th e analytical limi t of detection (LOD: 131 copies/mL). Vir al nucleic acid ma y persist in vivo, indepe ndent of virus viability . Detection of an alyte target(s) does not imply that the corres ponding virus(es) are i nfectious or are the caus ative agents for clin ical symptoms. Recen t patient exposure to Flu Mist or other live atte nuated influenza vacci linda may cause inaccurat e positive result s.This test has been a uthorized by FDA under an EUA for use by [employer]. T his test is only authori zed for the duration of the declaration agatha [...] Fact Sh eet for Healthcare Prov iders: https://www.TBLNFilms.com/ Documents/Xpert %20Xpress %99LVOA-KfR-0-F andrea-RSV/30 2-4508%20Rev.%2 0B%20HCP% 20Fact%20Sheet. pdf Fact Sheet for Healt hcare Patients: https://www.TBLNFilms.com/ Documents/Xpert %20Xpress %40FEIV-YlH-3-F andrea-RSV/30 2-4507%20Rev.%2 0B%20Pati ent%20Fact%20Sh eet.pdf SARS-COV-2 [facility] Performed at:[facility] (test code = [address] [address]-4) [place] [address] ph: [phone] [facility]OV[facility] ([facility])2020-08-14 18:18:00 Test Item Value Reference Range Interpretation Comments SARS-COV2/RT-PCR Negative Not Detected, Performanc e of the Xpert (test code = Negative, See Xpress 4291720) external report SARS-CoV-2/F andrea/RSV test for linked test has only bee n established in nasopharyngeal swab specimens. Use of the Xpert Xpress SARS-CoV-2/Flu/ RSV test with other spec imen types has not b een assessed and pe rformance characteristics are unknown. As wit h any molecular test, mutations withi n the targeted geneti c regions identified by robyn siegel Xpert Xpress SARS-CoV-2/Flu/ RSV test could affect [...] or ot her patient managem ent decisions. Resu lts from the Xpert Xpres s SARS-CoV-2/Flu/ RSV test should be corre lated with the clinic al history, epidem iological data, and other data available to th e clinician evalu ating the patient. Invali d test results may occ ur from improper specim en collection; pino lure to follow the dora mmended sample collecti on, handling, and s torage procedures; dell hnical error. False ne gative results may occ ur if virus is presen t at levels below th e analytical limi t of detection (LOD: 131 copies/mL). Vir al nucleic acid ma y persist in vivo, indepe ndent of virus viability . Detection of an alyte target(s) does not imply that the corres ponding virus(es) are i nfectious or are the caus ative agents for clin ical symptoms. Recen t patient exposure to Flu Mist or other live atte nuated influenza vacci linda may cause inaccurat e positive result s.This test has been a uthorized by FDA under an EUA for use by authoriz ed laboratories. T his test is only authori zed for the duration of the declaration agatha [...] sooner.Fact She et for Healthcare Prov iders: https://www.My Ad Box.Grooves[employer]ark/ Documents/Xpert %20Xpress %95ZUHL-VxI-0-F andrea-RSV/30 2-4508%20Rev.%2 0B%20HCP% 20Fact%20Sheet. pdfFact Sheet for Healt hcare Patients: https://www.My Ad Box.[employer]/ Documents/Xpert %20Xpress %85SHHP-EbT-8-F andrea-RSV/30 2-4507%20Rev.%2 0B%20Pati ent%20Fact%20Sh eet.pdf SARS-COV-2 [facility] Performed at:[facility] PERFORMING LAB [address] (test code = [address] 6738380) [place] [address]t h: [phone] POCT-GLUCOSE [id number] 16:54:00 Test Item Value Reference Range Interpretation Comments POC-GLUCOSE METER 261 mg/dL 70-110 H : Notified RN/MD: [facility] (test code AT [facility] [address] [facility] = 1538) [facility] [address]: Equipment Application Specialist/Techni adrian ID = [id number] for Thak er, Nikitaben POCT-GLUCOSE [id number] 11:22:00 Test Item Value Reference Range Interpretation Comments POC-GLUCOSE METER 337 mg/dL 70-110 H : Notified RN/MD: TESTED ([facility]) (test code AT [facility] [address] [place] [address] = 1538) [place] [id number]: Equipment Application Specialist/Techni adrian ID = [id number] for Thak er, Nikitaben U/S, TESTICULAR (SCROTUM)2020-08-14 09:17:00Reason for exam:->Swelling, pain, erythema of the right scrotum [facility] : 1970 Sex: MFINAL REPORT Testicular ultrasound. History: Pain and swelling. Comparison: None available. Discussion: Evaluation of the scrotum [...] a mass. Normal and symmetrical flow is present within both testes. The epididymi are normal bilaterally, with the epididymal heads measuring 1.1 cm on the right and 1.0 cm on the left. There is no hydrocoele. . IMPRESSION: Normal testicular ultrasound. Signed: Chemo [place] Verified Date/Time: 08/14/2020 09:17:05 Reading Location: [facility] Radiology Reading Room POCT-GLUCOSE [id number] 07:33:00 Test Item Value Reference Range Interpretation Comments POC-GLUCOSE METER 404 mg/dL 70-110 HH : Notified RN/MD: TESTED (BEAKER) (test code AT [facility] [address] = 1538) [facility] [address]: Equipment Application Specialist/Techni adrian ID = [id number] for Evan Husain Urinalysis w/Microscopic + Reflex to [id number] 07:32:00 Test Item Value Reference Range Interpretation Comments Color, UA (test code Yellow = 5778-6) Clarity, UA (test Slightly Cloudy code = 5767-9) Specific Artemus, UA 1.020 1.001-1.035 (test code = 5811-5) pH, UA (test code = 6.0 5.0-8.0 5803-2) Protein, UA (test Negative Negative code = 49756-0) Glucose, UA (test >=1000 mg/dL Negative A code = 365) Ketones, UA (test 15 mg/dL Negative A code = 2514-8) Bilirubin, UA (test Negative Negative code = 17921-1) Blood, UA (test code Trace Negative A = 30052-8) Nitrite, UA (test Negative Negative code = 5802-4) Leukocytes, UA (test Negative Negative code = 5799-2) Urobilinogen, UA 0.2 mg/dL 0.2-1.0 (test code = 09485-2) Bacteria, UA (test Rare code = 62862-5) RBC, UA (test code = 5-10 See_Comment [Autom ated 799-7) message] The system which generated this result transmit odalys reference range : /HPF. The reference range was not used to interpret this result as normal/abnormal . WBC, UA (test code = 20-50 See_Comment [Autom ated 63646-2) message] The system which generated this result transmit odalys reference range : /HPF. The reference range was not used to interpret this result as normal/abnormal . SQUAMOUS EPITHELIAL <5 See_Comment [Automa odalys (test code = 74014-5) messag e] The system which generated this result transmit odalys reference range : /HPF. The reference range was not used to interpret this result as normal/abnormal . Specimen Source (test code = 2795) Lab Interpretation Abnormal (test code = 90882-8) [facility] + Reflex to Culture 2020-08-14 07:32:00 Test Item Value Reference Range Interpretation Comments Color, UA (test code Yellow = 5778-6) Clarity, UA (test Slightly Cloudy code = 5767-9) Specific Artemus, UA 1.020 1.001-1.035 (test code = 5811-5) pH, UA (test code = 6.0 5.0-8.0 5803-2) Protein, UA (test Negative Negative code = 24640-2) Glucose, UA (test >=1000 mg/dL Negative A code = 365) Ketones, UA (test 15 mg/dL Negative A code = 2514-8) Bilirubin, UA (test Negative Negative code = 74121-1) Blood, UA (test code Trace Negative A = 81925-6) Nitrite, UA (test Negative Negative code = 5802-4) Leukocytes, UA (test Negative Negative code = 5799-2) Urobilinogen, UA 0.2 mg/dL 0.2-1.0 (test code = 61038-7) Bacteria, UA (test Rare code = 85857-7) RBC, UA (test code = 5-10 See_Comment [Autom ated 799-7) message] The system which generated this result transmit odalys reference range : /HPF. The reference range was not used to interpret this result as normal/abnormal . WBC, UA (test code = 20-50 See_Comment [Autom ated 57798-0) message] The system which generated this result transmit odalys reference range : /HPF. The reference range was not used to interpret this result as normal/abnormal . SQUAMOUS EPITHELIAL <5 See_Comment [Automa odalys (test code = 61772-8) messag e] The system which generated this result transmit odalys reference range : /HPF. The reference range was not used to interpret this result as normal/abnormal . Specimen Source (test code = 2795) Lab Interpretation Abnormal (test code = 43025-6) [facility]/ REFLEX URINE [id number] 07:32:00 Test Item Value Reference Range Interpretation [...] 1663) SOURCE(BEAKER) (test code = 2795) Hemoglobin [id number] 06:51:00 Test Item Value Reference Range Interpretation Comments Hemoglobin A1C (test code 14.0 % 4.3-6.1 H = 4548-4) ЕЛЕНА (test code = ЕЛЕНА) Equipment Application Specialist ID - [id number] Lab Interpretation (test Abnormal code = 83740-9) [facility] CenterHemoglobin [id number] 06:51:00 Test Item Value Reference Range Interpretation Comments Hemoglobin A1C (test code 14.0 % 4.3-6.1 H = 4548-4) ЕЛЕНА (test code = ЕЛЕНА) Equipment Application Specialist ID - [id number] Lab Interpretation (test Abnormal code = 09133-1) [facility] CenterHEMOGLOBIN [id number] 06:51:00 Test Item Value Reference Range Interpretation Comments HEMOGLOBIN A1C (BEAKER) (test code = 14.0 % 4.3-6.1 H 368) Equipment Application Specialist ID - [id number] METABOLIC [id number] 06:31:00 Test Item Value Reference Range Interpretation [...] S NOT APPLICABLE FOR DIALYSIS PATIEN TS. Equipment Application Specialist ID - [id number] ID - [id number] ID - [id number] ID - [id number] ID - [id number] ID - [id number] ID - XDGY37Pvqhvceu ID - [id number] ID - HXUJ74Dfttqiib ID - [id number] 06:29:00 Test Item Value Reference Range Interpretation Comments MAGNESIUM (BEAKER) (test code = 1.7 mg/dL 1.5-3.0 627) Equipment Application Specialist ID - [id number] ID - [id number] ID - [id number] ID - [id number] 06:26:00 Test Item Value Reference Range Interpretation Comments Phosphorus (test code = 3.3 mg/dL 2.5-4.5 2777-1) ЕЛЕНА (test code = ЕЛЕНА) Equipment Application Specialist ID - [id number] Lab Interpretation (test Normal code = 74470-6) [facility] Center[facility]osphorus2021-06-28 06:26:00 Test Item Value Reference Range Interpretation Comments Phosphorus (test code = 3.3 mg/dL 2.5-4.5 2777-1) ЕЛЕНА (test code = ЕЛЕНА) Equipment Application Specialist ID - [id number] Lab Interpretation (test Normal code = 61183-4) [facility] CenterPHOSPHORUS2021-06-28 06:26:00 Test Item Value Reference Range Interpretation Comments PHOSPHORUS (BEAKER) (test code = 3.3 mg/dL 2.5-4.5 604) Equipment Application Specialist ID - [id number] time/[id number] 06:24:00 Test Item Value Reference Interpretation Comments [...] valves. Lab Interpretation Normal (test code = 85147-0) [facility] CenterProthrombin time/[id number] 06:24:00 Test Item Value Reference Interpretation Comments [...] valves. Lab Interpretation Normal (test code = 03442-3) [facility] CenterPROTHROMBIN TIME/[id number] 06:24:00 Test Item Value Reference Range Interpretation Comments PROTIME (BEAKER) 10.8 seconds 9.3-12.0 Final Infor mation (test code = 759) (Auto Outp ut) INR (BEAKER) (test 0.97 See_Comment Final Inf ormation code = 370) (Auto Output) [Automated mess age] The system Equivalent DATA generated this result transmitted ref erence range: <=5.90. The reference range was not used to int erpret this result as normal/abnormal . RECOMMENDED COUMADIN/WARFARIN INR THERAPY RANGESSTANDARD DOSE: 2.0 - 3.0 Includes: PROPHYLAXIS for venous thrombosis, systemic embolization; TREATMENT for venous thrombosis and/or pulmonary embolus.HIGH RISK: Target INR is 2.5-3.5 for patients with mechanical heart valves.CBC W/PLT COUNT & AUTO [id number] 06:16:00 Test Item Value Reference Range Interpretation [...] PERCENT (BEAKER) (test code = 2801) POCT-GLUCOSE [id number] 04:21:00 Test Item Value Reference Range Interpretation Comments POC-GLUCOSE METER 332 mg/dL 70-110 H : TESTED A T [facility] 1317 (BEAKER) (test code [facility] [address], = 1538) [facility] [address]: Equipment Application Specialist/Techni adrian ID = [id number] for Francesca Lassiter BASIC METABOLIC PANEL (NA, K, CL, CO2, GLUCOSE, BUN, CREATININE, CA)2020-03-19 05:46:00 Test Item Value Reference Range Interpretation Comments NA (test code = 140 mmol/L 135-145 5025456654) K (test code = 4.0 mmol/L 3.5-5 3548265258) CL (test code = 104 mmol/L 98-108 9540460027) CO2 TOTAL (test code = 24 mmol/L 23-31 5809321693) AGAP (test code = 2-16 7308429093) BUN (test code = 23 mg/dL 7-23 9811153831) GLUCOSE (test code = 114 mg/dL 70-110 H 9975655320) CREATININE (test code = 1.09 mg/dL 0.6-1.25 2097638795) CALCIUM (test code = 9.4 mg/dL 8.6-10.6 8775395790) eGFR Calculation mL/min/1.73m2 (Non-) (test code = 1941082561) eGFR Calculation mL/min/1.73m2 () (test code = 1414807306) ЕЛЕНА (test code = ЕЛЕНА) Association of [...] tests). Lab Interpretation Abnormal (test code = 52802-1) [facility] 03:36:00 Test Item Value Reference Range Interpretation Comments APPEARANCE (test code = Cloudy Clear A 3404107703) COLOR (test code = Gricelda Yellow A 7475979677) PH (test code = 4.8-8.0 9208301323) SP GRAVITY (test code = 1.003-1.030 1320089431) GLU U QUAL (test code = Normal Normal 5758645817) BLOOD (test code = 1+ Negative A 5216194892) KETONES (test code = 20 mg/dL Negative A 6817709796) PROTEIN (test code = 500 mg/dL Negative A 2887-8) UROBILIN (test code = 4.0 mg/dL Normal A 9521951779) BILIRUBIN (test code = 2 mg/dL Negative A 6324901712) NITRITE (test code = Negative Negative 9393460202) LEUK BRIDGET (test code = Negative Negative 1520902331) RBC/HPF (test code = See_Comment [Autom ated message] 9910692695) The system Equivalent DATA generated this result transmit odalys reference range : 0 - 3 HPF. The refe rence range was not u sed to interpret th is result as normal/abnormal . WBC/HPF (test code = See_Comment H [Autom ated message] 6936587304) The system Equivalent DATA generated this result transmit odalys reference range : 0 - 5 HPF. The refe rence range was not u sed to interpret th is result as normal/abnormal . BACTERIA (test code = Few Negative A 2164020663) MUCOUS (test code = Marked Negative LPF A 3635157070) SQ EPITH (test code = HPF 2518982067) HYAL CAST (test code = See_Comment H [Aut omated message] 3651938150) The system Equivalent DATA generated this result transmit odalys reference range : <=2 LPF. The refere nce range was not u sed to interpret th is result as normal/abnormal . Lab Interpretation (test Abnormal code = 73574-5) [facility] CenterAC VBG + LACTIC [id number] 03:32:00 Test Item Value Reference Range Interpretation Comments PH (test code = 7.32-7.42 9426041014) PCO2 [place] (test code = See_Comment L [Auto mated 6828670471) message] The sy stem which generated this result transmitted reference range : 41 - 51 mmHg. The reference range was not used to interpret this result as normal/abnormal . PO2 [place] (test code = See_Comment [Autom ated 5788702695) message] The sy stem which generated this result transmitted reference range : 25 - 40 mmHg. The reference range was not used to interpret this result as normal/abnormal . HCO3 [place] (test code = See_Comment L [Auto mated 9683206086) message] The sy stem which generated this result transmitted reference range : 24 - 28 mEq/L. The reference range was not used to interpret this result as normal/abnormal . AC VBE(BEAKER) (test mEq/L code = 8073110783) LACTIC ACID (test code 1.72 mmol/L 0.5-2.2 = 0346333960) Lab Interpretation Abnormal (test code = 54727-3) [facility] CenterCOMP. METABOLIC PANEL (81905)2020-03-19 01:51:00 Test Item Value Reference Range Interpretation Comments NA (test code = 141 mmol/L 135-145 6660536714) K (test code = 4.1 mmol/L 3.5-5 1945844831) CL (test code = 102 mmol/L 98-108 7448276459) CO2 TOTAL (test code = 21 mmol/L 23-31 L 8562827774) AGAP (test code = 2-16 H 1570934859) BUN (test code = 25 mg/dL 7-23 H 5697339138) GLUCOSE (test code = 160 mg/dL 70-110 H 2874754088) CREATININE (test code = 1.12 mg/dL 0.6-1.25 6138993211) TOTAL BILI (test code = 1.1 mg/dL 0.1-1.4 9960893049) CALCIUM (test code = 10.6 mg/dL 8.6-10.6 6855314019) T PROTEIN (test code = 9.4 g/dL 6.3-8.2 H 6684014932) ALBUMIN (test code = 5.1 g/dL 3.5-5 H 7318750345) ALK PHOS (test code = 108 U/L 34-122 9555045624) ALTv (test code = 121 U/L 5-50 H 1742-6) AST(SGOT) (test code = 99 U/L 13-40 H 1359734693) eGFR Calculation mL/min/1.73m2 (Non-) (test code = 7761816445) eGFR Calculation mL/min/1.73m2 () (test code = 5588961681) ЕЛЕНА (test code = ЕЛЕНА) Association of [...] tests). Lab Interpretation Abnormal (test code = 77428-7) [facility] Test Item Value Reference Range Interpretation Comments LIPASE (test code = 2698144681) 66 U/L 0-220 Lab Interpretation (test code = Normal 36434-0) [facility]00 Test Item Value Reference Range Interpretation Comments MAGNESIUM (test code = 4828050050) 1.8 mg/dL 1.7-2.4 Lab Interpretation (test code = Normal 05044-9) [facility] WITH [id number] 01:38:00 Test Item Value Reference Range Interpretation Comments WBC (test code = See_Comment [Automated 6690-2) message] The sy stem which generated this result transmitted reference range : 4.20 - 10.70 10*3/?L. The reference range was not used to interpret this result as normal/abnormal . RBC (test code = See_Comment [Automated 789-8) message] The sy stem which generated this [...] RDW-SD (test code = 41.2 fL 38.5-51.6 15085-0) RDW-CV (test code = 13.2 % 12.1-15.4 788-0) PLT (test code = See_Comment H [Automated 777-3) message] The sy stem which generated this result transmitted reference range : 150 - 328 10*3/ ?L. The reference r cj was not used to interpret this result as normal/abnormal . MPV (test code = 9.5 fL 9.8-13 L 53796-3) NRBC/100 WBC (test See_Comment [Automat ed code = 2024944010) message] The system which generated this result transmitted reference range : 0.0 - 10.0 /100 WBCs. The refer ence range was not u sed to interpret th is result as normal/abnormal . NRBC x10^3 (test code <0.01 See_Comment [Auto mated = 5049975196) message] The s ystem which generated this result transmitted reference range : 10*3/?L. The reference range was not used to interpret this result as normal/abnormal . GRAN MAT (NEUT) % 46.0 % (test code = 770-8) IMM GRAN % (test code 3.50 % = 5007423060) LYMPH % (test code = 37.9 % 736-9) MONO % (test code = 9.5 % 5905-5) EOS % (test code = 2.3 % 713-8) BASO % (test code = 0.8 % 706-2) GRAN MAT x10^3(ANC) 3.38 10*3/uL 1.99-6.95 (test code = 4003542658) IMM GRAN x10^3 (test 0.26 10*3/uL 0-0.06 H code = 5738785711) LYMPH x10^3 (test code 2.79 10*3/uL 1.09-3.23 = 731-0) MONO x10^3 (test code 0.70 10*3/uL 0.36-1.02 = 742-7) EOS x10^3 (test code = 0.17 10*3/uL 0.06-0.53 711-2) BASO x10^3 (test code 0.06 10*3/uL 0.01-0.09 = 704-7) Lab Interpretation Abnormal (test code = 53051-8) [facility] 1 [id number] 01:31:03No acute cardiopulmonary disease RL: 6200 AFC: 52227 End of report ORDERING CLINICIAN: STEFANY GUERRERO TECHNIQUE: Single view of the chest INDICATION: Fever COMPARISON: None DISCUSSION: The lungs are clear. The cardiac silhouette is within normal limits. The airway is midline. The mediastinal contour is normal. [facility], Radiant Results Inft User - 03/12/2020 7:32 PM CSTORDERING CLINICIAN: STEFANY JIMENES: Single view of the chestINDICATION: FeverCOMPARISON: NoneDISCUSSION: The lungs are clear. The cardiac silhouette is within normal limits.The airway is midline. The mediastinal contour is normal.IMPRESSIONNo acute cardiopulmonary diseaseRL: 6200AF: 90266Rir of report [facility] OR [facility] ONLY - INFLUENZA A & B DIRECT [id number] 01:15:00 Test Item Value Reference Range Interpretation Comments Influenza A (test code = 51657-9) Negative Negative Influenza B (test code = 31413-3) Negative Negative Lab Interpretation (test code = Normal 23595-8) [facility]00 Test Item Value Reference Range Interpretation Comments APPEARANCE (test code = Hazy Clear A 9996549686) COLOR (test code = Gricelda Yellow A 2798720442) PH (test code = 4.8-8.0 7508962691) SP GRAVITY (test code = 1.003-1.030 8088727924) GLU U QUAL (test code = Normal Normal 1978807810) BLOOD (test code = 2+ Negative A 6336499223) KETONES (test code = Negative Negative 4773467795) PROTEIN (test code = 500 mg/dL Negative A 2887-8) UROBILIN (test code = Normal Normal 5851682136) BILIRUBIN (test code = Negative Negative 1930879296) NITRITE (test code = Negative Negative 3131080200) LEUK BRIDGET (test code = Negative Negative 1783129432) RBC/HPF (test code = See_Comment H [Autom ated message] 7661878552) The system Equivalent DATA generated this result transmit odalys reference range : 0 - 3 HPF. The refe rence range was not u sed to interpret th is result as normal/abnormal . WBC/HPF (test code = See_Comment [Autom ated message] 8614801839) The system Equivalent DATA generated this result transmit odalys reference range : 0 - 5 HPF. The refe rence range was not u sed to interpret th is result as normal/abnormal . BACTERIA (test code = Few Negative A 9902712552) MUCOUS (test code = Slight Negative LPF A 5088237842) Lab Interpretation (test Abnormal code = 11841-8) [facility] Metabolic Panel (NA, K, CL, CO2, GLUCOSE, BUN, CREATININE, CA)2020-03-13 00:49:00 Test Item Value Reference Range Interpretation Comments NA (test code = 135 mmol/L 135-145 5609319867) K (test code = 4.0 mmol/L 3.5-5 3032607964) CL (test code = 97 mmol/L 98-108 L 0047503934) CO2 TOTAL (test code = 24 mmol/L 23-31 6669025567) AGAP (test code = 2-16 0457327277) BUN (test code = 21 mg/dL 7-23 7824647469) GLUCOSE (test code = 206 mg/dL 70-110 H 8367300151) CREATININE (test code = 1.12 mg/dL 0.6-1.25 1167425167) CALCIUM (test code = 9.8 mg/dL 8.6-10.6 9662356169) eGFR Calculation mL/min/1.73m2 (Non-) (test code = 9492746527) eGFR Calculation mL/min/1.73m2 () (test code = 3496236008) ЕЛЕНА (test code = ЕЛЕНА) Association of [...] tests). Lab Interpretation Abnormal (test code = 91904-8) [facility] ([facility] NOW RAPID TESTING)2020-03-13 00:49:00 Test Item Value Reference Range Interpretation Comments SARS-CoV-2 Rapid ID NOW Positive Not Detected A (test code = 79360-7) ЕЛЕНА (test code = ЕЛЕНА) ID NOW COVID-19 Assay is an isothermal nucleic acid amplification test intended for the qualitative detection of nucleic acid from SARS-CoV-2 viral RNA in nasopharyngeal (SCRUMMASTER) specimens. It is used under Emergency Use [...] indicated. Lab Interpretation Abnormal (test code = 30356-4) [facility] (ALB, T.PRO, BILI T, BU/BC, ALT, AST, ALK PHOS)2020-03-13 00:43:00 Test Item Value Reference Range Interpretation Comments TOTAL BILI (test code = 1867458939) 0.8 mg/dL 0.1-1.1 BILI UNCON (test code = 9728830934) 0.6 mg/dL 0.1-1.1 BILI CONJ (test code = 6561547427) 0.0 mg/dL 0-0.3 T PROTEIN (test code = 9223543926) 8.9 g/dL 6.3-8.2 H ALBUMIN (test code = 7161623214) 4.8 g/dL 3.5-5 ALK PHOS (test code = 6787773666) 82 U/L 34-122 ALTv (test code = 1742-6) 138 U/L 5-50 H AST(SGOT) (test code = 4742957681) 139 U/L 13-40 H Lab Interpretation (test code = Abnormal 41830-0) [facility] CenterLipase [id number] 00:42:00 Test Item Value Reference Range Interpretation Comments LIPASE (test code = 0600420771) 46 U/L 0-220 Lab Interpretation (test code = Normal 10545-1) [facility] CenterCB with [id number] 00:26:00 Test Item Value Reference Range Interpretation Comments WBC (test code = See_Comment [Automated 6990-2) message] The sy stem which generated this result transmitted reference range : 4.20 - 10.70 10*3/?L. The reference range was not used to interpret this result as normal/abnormal . RBC (test code = See_Comment [Automated 939-8) message] The sy stem which generated this [...] RDW-SD (test code = 42.4 fL 38.5-51.6 03379-7) RDW-CV (test code = 13.3 % 12.1-15.4 788-0) PLT (test code = See_Comment H [Automated 037-3) message] The sy stem which generated this result transmitted reference range : 150 - 328 10*3/ ?L. The reference r cj was not used to interpret this result as normal/abnormal . MPV (test code = 10.0 fL 9.8-13 75138-3) NRBC/100 WBC (test See_Comment [Automat ed code = 4570804989) message] The system which generated this result transmitted reference range : 0.0 - 10.0 /100 WBCs. The refer ence range was not u sed to interpret th is result as normal/abnormal . NRBC x10^3 (test code <0.01 See_Comment [Auto mated = 8809984977) message] The s ystem which generated this result transmitted reference range : 10*3/?L. The reference range was not used to interpret this result as normal/abnormal . GRAN MAT (NEUT) % 55.8 % (test code = 770-8) IMM GRAN % (test code 1.80 % = 1839007912) LYMPH % (test code = 33.1 % 736-9) MONO % (test code = 8.5 % 5905-5) EOS % (test code = 0.3 % 713-8) BASO % (test code = 0.5 % 706-2) GRAN MAT x10^3(ANC) 4.12 10*3/uL 1.99-6.95 (test code = 3580723692) IMM GRAN x10^3 (test 0.13 10*3/uL 0-0.06 H code = 8226727817) LYMPH x10^3 (test code 2.44 10*3/uL 1.09-3.23 = 731-0) MONO x10^3 (test code 0.63 10*3/uL 0.36-1.02 = 742-7) EOS x10^3 (test code = <0.03 0.06-0.53 L 711-2) BASO x10^3 (test code 0.04 10*3/uL 0.01-0.09 = 704-7) Lab Interpretation Abnormal (test code = 44946-1) [facility]
[2021-11-11] MEDS ORDERED: methocarbamoL 500 MG TAB ONE (19:38)
[2021-11-11] MEDS ORDERED: HYDROCODONE/APAP 5/325 MG TAB ONE ×2 (19:38→21:27)
[2021-11-11] MEDS ORDERED: LIDOCAINE 4% PATCH ONE (19:39)
[2021-11-11] MEDS ORDERED: KETOROLAC 30 MG/ML INJ ONE (19:39)
[2021-11-11 19:49] LABS: Urine Blood Trace-lysed (Negative); Urine Glucose 2+ (Negative); Urine Protein 1+ (Negative); Urine Specific Gravity >=1.030 (1.005-1.030)
--- NOTE | 2021-11-11 20:49 | EDPHYS ---
Physician Documentation [facility] Name: Dean Rosenthal Age: 51 yrs Sex: Male : 1970 Arrival Date: 11/11/2021 Time: 17:56 Bed 16 Private MD: ED Physician Dorina Nazario HPI: 11/11 19:32 This 51 yrs old Black Male presents to ER via Wheelchair with complaints of Hand sd2 Swelling, Back Pain, Leg Pain, Feet Swelling. 19:32 51 yo M presents with CC of joint pain and sciatica. Reports this has been an ongoing sd2 issue and has a history of arthritis and needs to schedule an appointment with pain management and call tomorrow. Reports L sided sciatica in his L lower back that radiates around into his L anterior thigh. Has been taking Tylenol #3 at home with some relief. Not taking NSAIDs or muscle relaxers currently. Also complains of bilateral hand pain and swelling. All symptoms have been progressively worsening for 1 week. Worse with palpation and movement. Denies fever, CP, SOB, numbness or weakness. . Historical: - Allergies: 18:03 No Known Allergies; hb - PMHx: 18:03 Arthritis; Diabetes - NIDDM; GERD; High Cholesterol; Hypertension; hb - Immunization history:: Adult Immunizations up to date. - Social history:: Smoking status: Patient denies any tobacco usage or history of. ROS: 19:32 Constitutional: Negative for fever, chills, and weight loss, Eyes: Negative for injury, sd2 pain, redness, and discharge, Cardiovascular: Negative for chest pain, palpitations, and edema, Respiratory: Negative for shortness of breath, cough, wheezing. Abdomen/GI: Negative for abdominal pain, nausea, vomiting, diarrhea. MS/Extremity: Negative for injury and deformity. Positive for pain. Skin: Negative for injury, rash, and discoloration, Neuro: Negative for headache, numbness and tingling. Exam: 19:32 Constitutional: This is a well developed, well nourished patient who is awake, alert, sd2 and in no acute distress. Head/Face: Normocephalic, atraumatic. Eyes: EOMI, normal conjunctiva bilaterally Chest/axilla: Normal chest wall appearance and motion. Nontender with no deformity. Cardiovascular: Regular rate and rhythm with a normal S1 and S2. No gallops, murmurs, or rubs. 2+ distal pulses. Respiratory: Lungs have equal breath sounds bilaterally, clear to auscultation and percussion. No rales, rhonchi or wheezes noted. No increased work of breathing, no retractions or nasal flaring. Abdomen/GI: Soft, non-tender, with normal bowel sounds. No guarding or rebound. No evidence of tenderness throughout. Back: No spinal tenderness. No costovertebral tenderness. Full range of motion. L gluteal tenderness and lumbar paraspinal TTP. 5/5 strength to BLEs. Normal sensation. Skin: Warm, dry with normal turgor. Normal color with no rashes, no lesions, and no evidence of cellulitis. MS/ Extremity: Pulses equal, no cyanosis. Neurovascular intact. Full, normal range of motion. Ambulatory without difficulty. Psych: Awake, alert, with orientation to person, place and time. Behavior, mood, and affect are within normal limits. Vital Signs: 18:00 BP 108 / 82; Pulse 97; Resp 16; Temp 98.9(TE); Pulse Ox 97% on R/A; Weight 124.74 kg; hb Height 5 ft. 11 in. (180.34 cm); Pain 10/10; 18:28 BP 119 / 80; Pulse 94; Resp 18; Pulse Ox 98% ; Pain 10/10; ko1 20:15 Pain 3/10; ke1 21:23 BP 130 / 72; Pulse 96; Resp 17; Pulse Ox 96% on R/A; ke1 18:00 Body Mass Index 38.35 (124.74 kg, 180.34 cm) hb MDM: 19:14 Patient medically screened. sd2 19:32 Differential diagnosis: arthritis, RA, doubt cauda equina, doubt epidural abscess, sd2 herniated disc, spinal stenosis, sciatica, chronic pain among others. Data reviewed: vital signs, nurses notes. 20:46 Counseling: I had a detailed discussion with the patient and/or guardian regarding: the sd2 historical points, exam findings, and any diagnostic results supporting the discharge/admit diagnosis, the need for outpatient follow up, to return to the emergency department if symptoms worsen or persist or if there are any questions or concerns that arise at home. Medical screen evaluation completed. EMTALA emergency medical condition absent. ED course: Pt feeling improved after treatment. Pt advised of continued supportive care for symptoms and need for outpatient follow up with Pain management regarding his chronic pain. Pt is unsure if he has RA or OA. Will place on steroid dose pack to help with patient's back pain as well as possible RA. No red flags on history or exam at this time. pt is ambulatory and is comfortable with plan for discharge and outpatient follow up. No focal neuro deficits. Pt verbalizes understanding of discharge plan and strict return precautions.. 11/11 18:44 Order name: Glucose, Ancillary Testing; Complete Time: 19:05 EDMS 11/11 19:49 Order name: Urine Dipstick-Ancillary; Complete Time: 19:57 EDMS 11/11 19:15 Order name: Urine Dipstick-Ancillary (obtain specimen); Complete Time: 19:23 sd2 Administered Medications: 19:39 Drug: Ketorolac 60 mg Route: IM; Site: left ventrogluteal; ke1 20:15 Follow up: Response: Pain is decreased ke1 19:39 Drug: Methocarbamol 1000 mg Route: PO; ke1 20:15 Follow up: Response: Pain is decreased ke1 19:39 Drug: Lidoderm Patch 5 % (700 mg/patch) 1 patches Route: Topical; Site: affected area; ke1 19:39 Drug: HYDROcodone-acetaminophen 5 mg-325 mg 1 tabs Route: PO; ke1 20:15 Follow up: Pain / Adult ke1 20:15 Follow up: Response: Pain is decreased ke1 21:22 Drug: HYDROcodone-acetaminophen 5 mg-325 mg 1 tabs Route: PO; ke1 21:24 Follow up: Response: Medication administered at discharge. ke1 Disposition Summary: 11/11/21 20:49 Discharge Ordered Location: Home sd2 Problem: an acute exacerbation sd2 Symptoms: have improved sd2 Condition: Stable sd2 Diagnosis - Lumbago with sciatica, left side sd2 - Bilateral hand pain and swelling sd2 Followup: sd2 - With: Private Physician - When: 2 - 3 days - Reason: Recheck today's complaints, Continuance of care, Re-evaluation by your physician Discharge Instructions: - Discharge Summary Sheet sd2 - Chronic Back Pain sd2 - Sciatica sd2 Forms: - Medication Reconciliation Form sd2 - Thank You Letter sd2 - Antibiotic Education sd2 - Prescription Opioid Use sd2 Prescriptions: - Ibuprofen 800 mg Oral Tablet - take 1 tablet by ORAL route every 8 hours As needed take with food; 30 tablet; sd2 Refills: 0, Product Selection Permitted - Medrol (Garrett) 4 mg Oral Tablets, Dose Pack - take 1 tablet by ORAL route as directed - follow package instructions; 1 sd2 packet; Refills: 0, Product Selection Permitted - methocarbamol 750 mg Oral Tablet - take 1 tablet by ORAL route every 8 hours; 15 tablet; Refills: 0, Product sd2 Selection Permitted Signatures: Dispatcher [employer] EDMS Cathie Ely RN RN Hamzah Chacon RN RN ke1 Dorina Nazario MD MD sd2
--- NOTE | 2021-11-11 20:49 | ER ---
Nurse's Notes [facility] Name: Dean Rosenthal Age: 51 yrs Sex: Male : 1970 Arrival Date: 11/11/2021 Time: 17:56 Bed 16 Private MD: Diagnosis: Lumbago with sciatica, left side;Bilateral hand pain and swelling Presentation: 11/11 18:00 Chief complaint: Pain in bilateral hands, shoulders, and hips x 1 week. Denies hb fever/injury. Coronavirus screen: Client presents with at least one sign or symptom that may indicate coronavirus-19. Standard/surgical mask placed on the client. Provider contacted for isolation considerations. Ebola Screen: No symptoms or risks identified at this time. Risk Assessment: Do you want to hurt yourself or someone else? Patient reports no desire to harm self or others. Onset of symptoms was November 04, 2021. 18:00 Method Of Arrival: Wheelchair hb 18:00 Acuity: DIANNA 3 hb 18:27 Initial Sepsis Screen: Does the patient meet any 2 criteria? No. Patient's initial ko1 sepsis screen is negative. Does the patient have a suspected source of infection? No. Patient's initial sepsis screen is negative. Historical: - Allergies: 18:03 No Known Allergies; hb - PMHx: 18:03 Arthritis; Diabetes - NIDDM; GERD; High Cholesterol; Hypertension; hb - Immunization history:: Adult Immunizations up to date. - Social history:: Smoking status: Patient denies any tobacco usage or history of. Screenin:33 Abuse screen: Denies threats or abuse. Denies injuries from another. Nutritional ko1 screening: No deficits noted. Tuberculosis screening: No symptoms or risk factors identified. Fall Risk None identified. Assessment: 18:28 General: Appears in no apparent distress. uncomfortable, Behavior is calm, cooperative, ko1 appropriate for age. Pain: Complains of pain in low back area. Neuro: No deficits noted. Oriented to person, place, time, situation, Appropriate for age. Cardiovascular: No deficits noted. Respiratory: No deficits noted. GI: No deficits noted. : No deficits noted. EENT: No deficits noted. Derm: No deficits noted. Musculoskeletal: Reports pain in hips. 19:38 Pain: Complains of pain in L hip area Pain currently is 10 out of 10 on a pain scale. ke1 at worst was 10 out of 10 on a pain scale. level that patient reports is acceptable is 4 out of 10 on a pain scale. 21:22 Pain: Complains of pain in L hip Pain currently is 5 out of 10 on a pain scale. ke1 Vital Signs: 18:00 BP 108 / 82; Pulse 97; Resp 16; Temp 98.9(TE); Pulse Ox 97% on R/A; Weight 124.74 kg; hb Height 5 ft. 11 in. (180.34 cm); Pain 10/10; 18:28 BP 119 / 80; Pulse 94; Resp 18; Pulse Ox 98% ; Pain 10/10; ko1 20:15 Pain 3/10; ke1 21:23 BP 130 / 72; Pulse 96; Resp 17; Pulse Ox 96% on R/A; ke1 18:00 Body Mass Index 38.35 (124.74 kg, 180.34 cm) hb ED Course: 17:56 Patient arrived in ED. ja2 18:03 Triage completed. hb 18:03 Arm band placed on. hb 18:24 Tiara Quintana, RN is Primary Nurse. ko1 18:33 Patient has correct armband on for positive identification. Bed in low position. Call ko1 light in reach. Side rails up X 1. 19:03 Dorina Nazario MD is Attending Physician. sd2 21:22 No provider procedures requiring assistance completed. Patient did not have IV access ke1 during this emergency room visit. Administered Medications: 19:39 Drug: Ketorolac 60 mg Route: IM; Site: left ventrogluteal; ke1 20:15 Follow up: Response: Pain is decreased ke1 19:39 Drug: Methocarbamol 1000 mg Route: PO; ke1 20:15 Follow up: Response: Pain is decreased ke1 19:39 Drug: Lidoderm Patch 5 % (700 mg/patch) 1 patches Route: Topical; Site: affected area; ke1 19:39 Drug: HYDROcodone-acetaminophen 5 mg-325 mg 1 tabs Route: PO; ke1 20:15 Follow up: Pain 3/10 Adult ke1 20:15 Follow up: Response: Pain is decreased ke1 21:22 Drug: HYDROcodone-acetaminophen 5 mg-325 mg 1 tabs Route: PO; ke1 21:24 Follow up: Response: Medication administered at discharge. ke1 Medication: 21:23 VIS not applicable for this client. ke1 Outcome: 20:49 Discharge ordered by . [email or web address] 21:23 Discharged to home via wheelchair. ke1 21:23 Condition: good 21:23 Discharge instructions given to patient. 21:25 Patient left the ED. ke1 Signatures: Cathie Ely RN RN Roxanna Garcia Kouassi, RN RN ke1 Dorina Nazario MD MD sd2 Oliver, Kathy, RN RN ko1
[2021-11-13 18:45] VITALS: TEMP 98.9
[2021-11-13 19:33] VITALS: BP 130/72; O2SAT 96
== END 2021-11-11 21:25 | disposition home or self-care (01) ==
LOC: ER 17:51
DX: M54.42 Lumbago with sciatica, left side (principal); M79.642 Pain in left hand; M79.641 Pain in right hand; R22.33 Localized swelling, mass and lump, upper limb, bilateral
CPT/HCPCS: 82947; 81003; 96372; 99283; J2001

== ENCOUNTER 2021-12-05 08:13 | Emergency (ER) | payer BC ==
--- OUTSIDE RECORDS SUMMARY | 2021-12-05 08:20 | XMS REPORT | Continuity of Care Document ---
:1970 Author Organization [facility] t Address [address] [place] [address] Dr. Almanza[address] [place] [id number] Care Team Providers Name Role Phone ROBERT DIALLO Primary Care Physician Unavailable Matilde Rodney Attending Clinician Unavailable NUZHAT YADAV Attending Clinician Unavailable Baum_L Attending Clinician Unavailable Nuzhat Yadav MD Attending Clinician Deisy Rangel MD Attending Clinician Jaimie Cloud MD Attending Clinician [phone] Radha Bradshaw Attending Clinician SAUL MCFARLAND Attending Clinician Unavailable Orlin Al[facility] Attending Clinician Unavailable Saul Henriquez Attending Clinician Therapy, c Covid Infusion Attending Clinician Unavailable Stefany Guerrero NP Attending Clinician STEFANY GUERRERO Attending Clinician Unavailable Doctor Unassigned, [place] Attending Clinician Unavailable Debby Ambriz Attending Clinician NUZHAT YADAV Admitting Clinician Unavailable BaJairo Admitting Clinician Unavailable STEFANY GUERRERO Admitting Clinician Unavailable Payers Payer Name Policy Type Policy Number Effective Date Expiration Date S ourevelyn [employer] [place] [id number] 2020 00:00:00 BCBS PPO POS [id number] 2020 EPO CHOICE 00:00:00 Blue Cross C1 [id number] 2020 Common Spiri t Blue Shield of 00:00:00 - [facility] Problems Condition Condition Condition Status Onset Resolution Last Treating Co mments Source Name Details Category Date Date Treatment Clinician Date Cellulitis Cellulitis Disease Active C HI [facility] of of 08-14 [facility] perineum perineum 00:00: Medica l 00 Center No known No known Disease Unive rs active active ity of problems problems [facility] [id number] Mixed Problem Active Common hyperlipid Spirit emia - [facility] [id number] Essential Problem Active Comm on hypertensi Spirit on - [facility] [id number] Type 2 Problem Active Common diabetes [facility] mellitus - [facility] with [facility] long-term current use of insulin [id number] Rheumatoid Problem Active Co mmon arthritis Spirit involving - [facility] multiple [facility] unspecifie Medica l d whether Center rheumatoid factor present [id number] Noncomplia Problem Active Comm on nce Spirit - [facility] [id number] Insomnia, Problem Active Com mon unspecifie Spirit d type - [facility] [id number] Cutaneous Problem Active Comm on abscess of Spirit buttock [facility] Allergies, Adverse Reactions, Alerts Allergy Allergy Status Severity Reaction(s) Onset Inactive Treating Comm ents Source Name Type Date Date Clinician NO KNOWN Drug Active Univers ALLERGIE Class ity of S [facility] NO KNOWN Allergy Active [facility] Social History Social Habit Start Date Stop Date Quantity Comments Source Exposure to SARS-CoV-2 Yes [facility] [place] [facility] Branch Sex Assigned At Com mon Spirit [facility] History of Tobacco Use Co mmon [facility] Smoking Status Start Date Stop Date Source Never Smoker Common [facility] Unknown if ever smoked [facility] Medications Ordered Filled Start Stop Current [...] Take [address] (PRINIVIL,Z 08-18 by mouth Luke s ESTRIL) 10 11:59: daily. Medic al MG tablet 38 Center atorvastati Yes 40mg QD Take [address] [facility] (LIPITOR) 08-18 by mouth Luke s 40 MG 11:59: daily Medical tablet 38 lunchtime Center . pantoprazol Yes 40mg QD Take [address] e 08-18 by mouth [facility] (PROTONIX) 11:59: daily. Medic [...] 00 usly every Ce nter (3 mL) In morning. insulin Yes 10U Inject 10 [facility]I S t lispro 7-02 Units [facility] (HumaLOG) 00:00: subcutaneo Me dical 100 unit/mL 00 usly 3 Center InPn (three) times daily before meals. pen needle, Yes Use as [facility] diabetic 31 08-18 directed. Suha es gauge x 00:00: Medical 07/02" Ndle 00 Center bisacodyL Yes 5mg Take [address] (DULCOLAX) 02 tablet (5 Luke s 5 mg EC [...] C [facility] -[facility]at 08[facility]18[facility]:59 mouth 2 Medical (AUGMENTIN) [...] HI St -clavulanat 08-18 tablet by Andrea hudsons e 00:00: 23:59 mouth 2 Medical (AUGMENTIN) 00 :00 (two) Center 875-125 mg times per tablet daily for 7 days. doxycycline 2020- No 100mg Q.5D Take [address] (MONODOX) 08-18 capsule [facility] 100 MG 00:00: 23:59 (100 mg Medical capsule 00 :00 total) by Center mouth 2 (two) times daily for 7 days. Ibuprofen Ibuprofen 2020- No TID Ibuprofen 800 MG 800 MG 08-07 800 MG 00:00: 00:00 00 :00 Ibuprofen Ibuprofen 2020- No TID Ibuprofen Common 800 MG 800 MG 08-07 800 MG Spirit 00:00: 00:00 - [facility] 00 :00 [facility] Cleocin 300 Cleocin 300 2020- No 2{capsu TID Cleocin MG MG 08-07 les} 300 MG 00:00: 00:00 00 :00 proMETHazin 2020- No 12.5mg 12.5 mg, Univers [...] 1 dose, 03/18/20 at 2145, STAT proMETHazin No 12.5mg 12.5 mg, Univers e 03-19 IV ity of (PHENERGAN) 03:00: 03:00 [facility] [place] 12.5 mg in 00 :00 ONCE, 1 Medica l NaCl 0.9% dose, Sat Branc h (NS) 50 mL 03/18/20 at piggyback 2100, 50 mL NaCl 0.9% 2020- No 500mL at 999 Univ ers (NS) bolus 03-19 mL/hr, 500 it y of infusion 02:15: 02:30 mL, IV [place] 500 mL 00 :00 Infusion, Medical ONCE, 1 Branch dose, 03/18/20 at 2015, STAT ondansetron No 4mg 4 mg, Slow Univers (ZOFRAN 03-19 IV Push, ity of (PF)) 02:15: 01:31 ONCE, 1 [place] injection 4 00 :00 dose, Sat Med ical mg 03/18/20 at Branch 2014, KACY proMETHazin Yes [id number] 25mg Insert 1 Univers e 03-19 Suppositor ity of (PHENERGAN) 00:00: y into [place] 25 mg 00 rectum Medical suppository every 4 Branc h (four) hours as needed for Nausea and Vomiting (N/V). bamlanivima 2020- No 700mg 700 mg, IV Univers b (EUA) 700 03-15 Infusion, it y of mg in NaCl 16:45: 17:30 ONCE, Wed [place] 0.9% (NS) 00 :00 1/27/21 at [facility] 270 mL 1045, For Branch infusion 1 dose
Ad scenario writer as an IV infusion over 60 minutes [...] exas 0.9% (NS) 00 :00 03/15/20 at [facility] 270 mL 1045, For Branch infusion 1 dose
Ad scenario writer as an IV infusion over 60 minutes [...] dose, Sun Med ical mg 03/12/20 at Hall 1915, KACY ketorolac 2020- No 30mg 30 mg, Unive rs (TORADOL) 03-13-25 Slow IV ity of injection 01:00: 00:14 Push, [place] 30 mg 00 :00 ONCE, 1 Medical dose, Sun Branch 03/12/20 at 1900, Routine
flash ranging crewmember approving Restricted medication : STEFANY GUERRERO G NaCl 0.9% 2020- No 1000mL at 999 Uni vers (NS) bolus 03-13-25 mL/hr, ity of infusion 00:15: 02:45 1,000 mL, [place] as 1,000 mL 00 :00 IV Medical Infusion, Branch ONCE, 1 dose, 03/12/20 at 1815, KACY ondansetron Yes [id number] 4mg Take 1 Univers (ZOFRAN 1-24 tablet by ity of ODT) 4 mg 00:00: mouth [place] disintegrat 00 every 8 Medic al ing tablet (eight) Branch hours as needed for Nausea and Vomiting (N/V). ibuprofen Yes [id number] 800mg Take 1 Univers 800 mg 1-24 tablet by ity of tablet 00:00: mouth [place] 00 every 6 Medical (six) Branch hours as needed for Pain (scale 1-3) or Temp > 38.5 C. ondansetron Yes [id number] 4mg Take 1 Univers (ZOFRAN 1-24 tablet by ity of ODT) 4 mg 00:00: mouth [place] disintegrat 00 every 8 Medic al ing tablet (eight) Branch hours as needed for Nausea and Vomiting (N/V). ibuprofen Yes [id number] 800mg Take 1 Univers 800 mg 1-24 tablet by ity of tablet 00:00: mouth [place] 00 every 6 Medical (six) Branch hours as needed for Pain (scale 1-3) or Temp > 38.5 C. ondansetron Yes [id number] 4mg Take 1 Univers (ZOFRAN 1-24 tablet by ity of ODT) 4 mg 00:00: mouth [place] disintegrat 00 every 8 Medic al ing tablet (eight) Branch hours as needed for Nausea and Vomiting (N/V). ibuprofen Yes [id number] 800mg Take 1 Univers 800 mg 1-24 tablet by ity of tablet 00:00: mouth [place] 00 every 6 Medical (six) Branch hours as needed for Pain (scale 1-3) or Temp > 38.5 C. ondansetron 0 Yes [id number] 4mg Take 1 Univers (ZOFRAN 1-24 tablet by ity of ODT) 4 mg 00:00: mouth [place] disintegrat 00 every 8 Medic al ing tablet (eight) Branch hours as needed for Nausea and Vomiting (N/V). ibuprofen 0 Yes [id number] 800mg Take 1 Univers 800 mg 1-24 tablet by ity of tablet 00:00: mouth [place] 00 every 6 Medical (six) Branch hours as needed for Pain (scale 1-3) or Temp > 38.5 C. ondansetron Yes [id number] 4mg Take 1 Univers (ZOFRAN 1-24 tablet by ity of ODT) 4 mg 00:00: mouth [place] disintegrat 00 every 8 Medic al ing tablet (eight) Branch hours as needed for Nausea and Vomiting (N/V). ibuprofen 0 Yes [id number] 800mg Take 1 Univers 800 mg 1-24 tablet by ity of tablet 00:00: mouth [place] 00 every 6 Medical (six) Branch hours as needed for Pain (scale 1-3) or Temp > 38.5 C. ondansetron 0 Yes [id number] 4mg Take 1 Univers (ZOFRAN 1-24 tablet by ity of ODT) 4 mg 00:00: mouth [place] disintegrat 00 every 8 Medic al ing tablet (eight) Branch hours as needed for Nausea and Vomiting (N/V). ibuprofen 0 Yes [id number] 800mg Take 1 Univers 800 mg 1-24 tablet by ity of tablet 00:00: mouth [place] 00 every 6 Medical (six) Branch hours as needed for Pain (scale 1-3) or Temp > 38.5 C. lisinopriL Yes TAKE 1 Unive rs 10 mg 1-04 TABLET BY ity of tablet 00:00: MOUTH [place] 00 EVERY DAY Medical Branch lisinopriL 0 Yes TAKE 1 Unive rs 10 mg 1-04 TABLET BY ity of tablet 00:00: MOUTH [place] 00 EVERY DAY Medical Branch lisinopriL 0 Yes TAKE 1 Unive rs 10 mg 1-04 TABLET BY ity of tablet 00:00: [facility] EVERY DAY Medical Branch lisinopriL 0 Yes TAKE 1 Unive rs 10 mg 1-04 TABLET BY ity of tablet 00:00: [facility] EVERY DAY Medical Branch lisinopriL 0 Yes TAKE 1 Unive rs 10 mg 1-04 TABLET BY ity of tablet 00:00: [facility] EVERY DAY Medical Branch lisinopriL 0 Yes TAKE 1 Unive rs 10 mg 1-04 TABLET BY ity of tablet 00:00: [facility] EVERY DAY Medical Branch atorvastati 2019-02 Yes 40mg Take 40 mg Univers n 40 mg 2-18 by mouth. ity of tablet 00:00: [place] [facility] atorvastati 2019-02 Yes 40mg Take 40 mg Univers n 40 mg 2-18 by mouth. ity of tablet 00:00: [place] [facility] atorvastati 2019-02 Yes 40mg Take 40 mg Univers n 40 mg 2-18 by mouth. ity of tablet 00:00: [place] [facility] atorvastati 2019-02 Yes 40mg Take 40 mg Univers n 40 mg 2-18 by mouth. ity of tablet 00:00: [place] [facility] atorvastati 2019-02 Yes 40mg Take 40 mg Univers n 40 mg 2-18 by mouth. ity of tablet 00:00: [place] [facility] atorvastati 2019-02 Yes 40mg Take 40 mg Univers n 40 mg 2-18 by mouth. ity of tablet 00:00: [place] [facility] metFORMIN 2019- Yes TAKE 2 Univer s 500 mg 2-17 TABLETS BY ity of tablet 00:00: [facility] EVERY Medical MORNING Branch AND EVERY EVENING metFORMIN 2019-02 Yes TAKE 2 Univer s 500 mg 2-17 TABLETS BY ity of tablet 00:00: [facility] EVERY Medical MORNING Branch AND EVERY EVENING metFORMIN 2020- Yes TAKE 2 Univer s 500 mg 2-17 TABLETS BY ity of tablet 00:00: [facility] EVERY Medical MORNING Branch AND EVERY EVENING metFORMIN 2019- Yes TAKE 2 Univer s 500 mg 2-17 TABLETS BY ity of tablet 00:00: [facility] EVERY Medical MORNING Branch AND EVERY EVENING metFORMIN 2020- Yes TAKE 2 Univer s 500 mg 2-17 TABLETS BY ity of tablet 00:00: MOUTH [place] EVERY Medical MORNING Branch AND EVERY EVENING metFORMIN 2019-02 Yes TAKE 2 Univer s 500 mg 2-17 TABLETS BY ity of tablet 00:00: MOUTH [place] EVERY Medical MORNING Branch AND EVERY EVENING semaglutide 2019-02 Yes 1{tbl} Take 1 Un sh[place]a (RYBELSUS) 1-30 tablet by ity of 3 mg Tab 00:00: mouth. [place] [facility] semaglutide 2019-02 Yes 1{tbl} Take 1 Un [place] (RYBELSUS) 1-30 tablet by ity of 3 mg Tab 00:00: mouth. [place] [facility] semaglutide 2019-02 Yes 1{tbl} Take 1 Un [place] (RYBELSUS) 1-30 tablet by ity of 3 mg Tab 00:00: mouth. [place] [facility] Branch semaglutide 2019-02 Yes 1{tbl} Take 1 Un [place] (RYBELSUS) 1-30 tablet by ity of 3 mg Tab 00:00: mouth. [place] [facility] Branch semaglutide 2019-02 Yes 1{tbl} Take 1 Un [place] (RYBELSUS) 1-30 tablet by ity of 3 mg Tab 00:00: mouth. [place] [facility] Branch semaglutide 2019-02 Yes 1{tbl} Take 1 Un [place] (RYBELSUS) 1-30 tablet by ity of 3 mg Tab 00:00: mouth. [address] Atorvastati Atorvastati No 1{table QD Atorvastat n Calcium n Calcium t} in Calcium 40 MG 40 MG 40 MG Pantoprazol Pantoprazol No 1{table QD Pantoprazo e Sodium 40 e Sodium 40 t} le Sodium MG MG 40 MG Lisinopril Lisinopril No 1{table QD Lisinopril 10 MG 10 MG t} 10 MG metFORMIN metFORMIN No 1{table QID metFORMIN HCl 500 MG HCl 500 MG t_with_ HCl 500 MG a_meal} Belsomra 15 Belsomra 15 No 1{table QD Belsomra MG MG t_at_be 15 MG dtime_a s_neede d} Celecoxib Celecoxib No 1{capsu BID Celecoxib 200 MG 200 MG le_with 200 MG _food} Lisinopril Lisinopril No 1{table QD Lisinopril Common 10 MG 10 MG t} 10 MG [facility] Celecoxib Celecoxib No 1{capsu BID Celecoxib Common 200 MG 200 MG le_with 200 MG Spirit _food} [facility] Belsomra 15 Belsomra 15 No 1{table QD Belsomra Common MG MG t_at_be 15 MG Spirit dtime_a [facility] s[facility] met[facility]MIN metFORMIN No 1{table QID metFORMIN Common HCl 500 MG HCl 500 MG t_with_ HCl 500 MG Spirit a_meal} [facility] Atorvastati Atorvastati No 1{table QD Atorvastat Common n Calcium n Calcium t} in Calcium Spirit 40 MG 40 MG 40 MG [facility] Pantoprazol Pantoprazol No 1{table QD Pantoprazo Common e Sodium 40 e Sodium 40 t} le Sodium Spirit MG MG 40 MG [facility] Vital Signs Vital Name Observation Time Observation Value Comments Source HEIGHT 2020-08-14 04:00:00 180.3 cm WEIGHT 2020-08-14 04:00:00 124.739 kg HEIGHT 2020-08-14 04:00:00 180.3 cm WEIGHT 2020-08-14 04:00:00 124.739 kg height 2020-08-04 10:00:00 71.00 [in_i] [facility] weight 2020-08-04 10:00:00 283.4 [lb_av] [facility] temperature 2020-08-04 10:00:00 95.2 [degF] [facility] bmi 2020-08-04 10:00:00 39.52 kg/m2 [facility] oximetry 2020-08-04 10:00:00 97 % [facility] respiratory rate 2020-08-04 10:00:00 16 /min Comm on [facility] blood pressure 2020-08-04 10:00:00 131 mm[Hg] [facility] - systolic [facility] blood pressure 2020-08-04 10:00:00 80 mm[Hg] [facility] - diastolic [facility] Systolic blood 2020-03-19 06:42:06 137 mm[Hg] Univer sity of pressure [place] [facility] Diastolic blood 2020-03-19 06:42:06 92 mm[Hg] Unive rsity of pressure [place] [facility] Heart rate 2020-03-19 06:42:06 90 /min Universi ty of [place] [facility] Respiratory rate 2020-03-19 06:42:06 17 /min Univ ersity of [place] [facility] Oxygen saturation in 2020-03-19 06:42:06 97 /min University of Arterial blood by [place] [employer] Pulse oximetry Branch Body temperature 2020-03-19 00:47:00 37.22 Nafisa Univ ersity of [place] [facility] Body weight 2020-03-19 00:47:00 122.471 kg Universi ty of [place] [facility] Systolic blood 2020-03-19 00:15:00 126 [...] 95 /min University of Arterial blood by [place] [employer] Pulse oximetry Branch Systolic blood 2020-03-15 [...] 95 /min University of Arterial blood by [place] [employer] Pulse oximetry Branch Body weight 2020-03-15 15:55:00 122.471 kg Universi ty of [place] [facility] Systolic blood 2020-03-15 17:31:00 144 mm[Hg] Univer sity of pressure [place] [facility] Diastolic blood 2020-03-15 17:31:00 88 mm[Hg] Unive rsity of pressure [facility] Heart rate 2020-03-15 17:31:00 86 /min Universi ty [facility] [place] [facility] Body temperature 2020-03-15 17:31:00 36.94 Nafisa Univ ersity of [place] [facility] Respiratory rate 2020-03-15 17:31:00 18 /min Univ ersity of [facility] Oxygen saturation in 2020-03-15 17:31:00 95 /min University of Arterial blood by [facility] Pulse oximetry Branch Body weight 2020-03-15 15:55:00 122.471 kg Universi ty [facility] [place] [facility] Heart rate 2020-03-13 02:30:00 87 /min [facility]i ty [facility] [place] [facility] Respiratory rate 2020-03-13 02:30:00 25 /min Univ ersity of [place] [facility] Oxygen saturation in 2020-03-13 02:30:00 92 /min University of Arterial blood by [facility] Pulse oximetry Branch Systolic blood 2020-03-13 02:00:00 107 mm[Hg] Univer sity of [facility] Diastolic blood 2020-03-13 02:00:00 60 mm[Hg] Unive rsity of [facility] Body temperature 2020-03-12 23:41:00 38.17 Nafisa Univ ersity [facility] [place] [facility] Body weight 2020-03-12 23:41:00 126.1 kg [facility]i ty [facility] [place] [facility] Systolic blood 2020-08-18 08:00:00 131 mm[Hg] [facility] Diastolic blood 2020-08-18 08:00:00 78 mm[Hg] [facility] S t [facility] Heart rate 2020-08-18 08:00:00 67 /min [facility] Body temperature 2020-08-18 08:00:00 36.28 Nafisa [facility] Respiratory rate 2020-08-18 08:00:00 18 /min [facility] Oxygen saturation in 2020-08-18 08:00:00 95 /min [facility] Arterial blood by Medical Ce nter Pulse oximetry Body height 2020-08-14 04:00:00 180.3 cm [facility] Body weight 2020-08-14 04:00:00 124.739 kg [facility] BMI 2020-08-14 04:00:00 38.35 kg/m2 [facility] Procedures Procedure Date / Time Performing Clinician Source Performed HEPATITIS C ANTIBODY 2021-08-27 04:29:00 [facility] POCT-GLUCOSE METER 2020-08-18 07:49:00 [facility] BASIC METABOLIC PANEL 2020-08-18 05:24:00 [facility] (7) [facility] CBC W/PLT COUNT & AUTO 2020-08-18 05:20:00 [facility] DIFFERENTIAL [facility] (MANUAL DIFFERENTIAL) 2020-08-18 05:20:00 [facility] CBC W/PLT COUNT & AUTO 2020-08-18 05:20:00 [facility] DIFFERENTIAL [facility] POCT-GLUCOSE METER 2020-08-17 20:14:00 [facility] POCT-GLUCOSE METER 2020-08-17 16:32:00 [facility] POCT-GLUCOSE METER 2020-08-17 11:05:00 [facility] CBC W/PLT COUNT & AUTO 2020-08-17 08:09:00 [facility] DIFFERENTIAL [facility] (MANUAL DIFFERENTIAL) 2020-08-17 08:09:00 [facility] MAGNESIUM 2020-08-17 08:09:00 [facility] BASIC METABOLIC PANEL 2020-08-17 08:09:00 [facility] (7) [facility] CBC W/PLT COUNT & AUTO 2020-08-17 08:09:00 Ai [facility] DIFFERENTIAL [facility] VANCOMYCIN LEVEL, 2020-08-17 05:27:00 Rosalie Rangelia [facility] POCT-GLUCOSE METER 2020-08-16 21:08:00 Ai [facility] POCT-GLUCOSE METER 2020-08-16 17:01:00 Aureaeh [facility] POCT-GLUCOSE METER 2020-08-16 11:49:00 Shieh [facility] POCT-GLUCOSE METER 2020-08-16 08:34:00 Ai [facility] CBC W/PLT COUNT & AUTO 2020-08-16 04:52:00 Loraine [facility] DIFFERENTIAL Center BASIC METABOLIC PANEL 2020-08-16 04:52:00 Loraine [facility] (7) [place] CBC W/PLT COUNT & AUTO 2020-08-16 04:52:00 Loraine [facility] Center POCT-GLUCOSE METER 2020-08-15 21:29:00 [facility], 2020-08-15 20:14:00 Micha Sanchez [facility] POCT-GLUCOSE METER 2020-08-15 16:54:00 Deisy [facility] POCT-GLUCOSE METER 2020-08-15 11:07:00 Deisy [facility] POCT-GLUCOSE METER 2020-08-15 07:22:00 [facility] W/[facility] COUNT & AUTO 2020-08-15 04:15:00 Loraine [facility] DIFFERENTIAL Center BASIC METABOLIC PANEL 2020-08-15 04:15:00 Loraine [facility] (7) Center CBC W/PLT COUNT & AUTO 2020-08-15 04:15:00 Nuzhat Yadav [facility] Center POCT-GLUCOSE METER 2020-08-14 20:59:00 Juan Carlos [facility] CT ABDOMEN/PELVIS WITH 2020-08-14 18:18:00 Saeed Jurado Txraya [facility] IV CONTRAST Center SARS-COV2/RT-PCR ([facility] 2020-08-14 17:12:[address] [facility] & REF LABS) Center POCT-GLUCOSE METER 2020-08-14 16:42:00 [place] [facility] POCT-GLUCOSE METER 2020-08-14 11:10:00 [facility] US TESTICULAR (SCROTUM) 2020-08-14 08:55:00 Nuzhat Yadav [facility] POCT-GLUCOSE METER 2020-08-14 07:22:00 Rangel [facility] URINE CULTURE 2020-08-14 07:01:00 Loraine [facility] URINALYSIS W/ REFLEX 2020-08-14 07:01:00 [facility] BLOOD CULTURE 2020-08-14 06:56:00 Loraine [facility] CBC W/PLT COUNT & AUTO 2020-08-14 05:47:00 Loraine [facility] BASIC METABOLIC PANEL 2020-08-14 05:47:00 Loraine [facility] (7) Center HEMOGLOBIN A1C 2020-08-14 05:47:00 Loraine [facility] PROTHROMBIN TIME/INR 2020-08-14 05:47:00 Nuzhat Yadav [facility] MAGNESIUM 2020-08-14 05:47:00 Loraine [facility] PHOSPHORUS 2020-08-14 05:47:00 Loraine [facility] CBC W/PLT COUNT & AUTO 2020-08-14 05:47:00 Nuzhat Yadav [facility] POCT-GLUCOSE METER 2020-08-14 04:10:00 Nuzhat Yadav [facility] BASIC METABOLIC PANEL 2020-03-19 05:19:00 Radha Oliveira [facility] (NA, K, CL, CO2, Medical Branch GLUCOSE, BUN, CREATININE, CA) AC VBG + LACTIC ACID 2020-03-19 03:24:00 Radha Oliveira [facility] URINALYSIS 2020-03-19 02:34:00 Radha Oliveira [facility] LIPASE 2020-03-19 01:30:00 Tee [facility] MAGNESIUM 2020-03-19 01:30:00 Tee [facility] COMP. METABOLIC PANEL 2020-03-19 01:30:00 Radha Oliveira [facility] ([id number]) [facility] Branch CBC WITH DIFF 2020-03-19 01:29:[address] [facility] CONSENT/REFUSAL FOR 2020-03-19 00:39:12 Doctor Unassigned, No [facility] DIAGNOSIS AND TREATMENT [facility] [id number] CONSENT 2020-03-15 06:01:00 Doctor Unassigned, No [facility] Name [facility] XR CHEST 1 VW 2020-03-13 00:48:13 Stefany Guerrero [facility] LIPASE 2020-03-13 00:11:00 Stefany Guerrero [facility] HEPATIC FUNCTION PANEL 2020-03-13 00:11:00 Stefany Guerrero [facility] ([id number]) (ALB,T.PRO,BILI Medical Branch T,BU/BC,ALT,AST,ALK PHOS) BASIC METABOLIC PANEL 2020-03-13 00:11:00 Stefany Guerrero [facility] (NA, K, CL, CO2, Medical Branch GLUCOSE, BUN, CREATININE, CA) CBC WITH DIFF 2020-03-13 00:11:00 Stefany Guerrero [facility] URINALYSIS 2020-03-13 00:11:00 Stefany Guerrero [facility] ADC,CLC OR LCC ONLY - 2020-03-13 00:11:00 Stefany Guerrero [facility] INFLUENZA A & B DIRECT Medical B ranch ANTIGEN COVID-19 (ID NOW RAPID 2020-03-13 00:11:00 Stefany Guerrero [facility] TESTING) Medical Branch NOTICE OF PRIVACY 2020-03-12 23:39:50 Doctor Unassigned, No [facility] PRACTICES Name Medical Branch CONSENT/REFUSAL FOR 2020-03-12 23:39:34 Doctor [facility]assigned, [facility] Plan of Care Planned Activity Planned Date Details Comments Source Future Scheduled 2023-03-26 Lipid panel (procedure) [facility] 00:00:00 [code = 32280771] Medical Ce nter Future Scheduled 2023-03-26 Lipid panel (procedure) [facility] 00:00:00 [code = 67317894] Medical Ce nter Future Scheduled 2023-03-26 Lipid panel (procedure) [facility] 00:00:00 [code = 31670864] Medical Ce nter Future Scheduled 2021-10-18 INFLUENZA VACCINE (#1) [facility] [code = INFLUENZA Medical nter VACCINE (#1)] Future Scheduled 2021-08-10 SHINGLES VACCINES ([address] [facility] 00:00:00 2) [code = SHINGLES [facility] Center VACCINES (1 of 2)] Future Scheduled 2021-02-[address] [facility] 00:00:00 (12+) [code = Medical Center DEPRESSION SCREENING (12+)] Future Scheduled 2020-11-[address] [facility] 00:[facility]:00 measurement (procedure) [facility] [code = 37254472] Future Scheduled 2020-11-[address] [facility] 00:00:00 measurement (procedure) [facility] [code = 40908834] Future Scheduled 2020-11-[address] [facility] 00:00:00 measurement (procedure) [facility] [code = 63742977] Future Scheduled 2020-10-18 INFLUENZA VACCINE (#1) [facility]00 [code = INFLUENZA Medical Ce nter VACCINE (#1)] Future Scheduled 2020-10-18 INFLUENZA VACCINE (#1) [facility] 00:00:00 [code = INFLUENZA Medical Ce nter VACCINE (#1)] Future Scheduled 2020-02-[address] [facility] 00:00:00 (12+) [code = [facility] Center DEPRESSION SCREENING (12+)] Future Scheduled 2020-02-[address] [facility] 00:00:00 (12+) [code = [facility] Center DEPRESSION SCREENING (12+)] Future [...] [facility] 00:00:00 = DIABETIC EYE EXAM] [facility] Future Scheduled 1981-08-[address] examination Medical Center (regime/therapy) [code = 974513562] Future Scheduled 1981-08-10 Urine screening for [facility] 00:00:00 protein (procedure) Medical Center [code = 237695776] Future Scheduled 1981-08-10 DIABETIC EYE EXAM [code [facility] 00:00:00 = DIABETIC EYE EXAM] Medical Center Future Scheduled 1981-08-[address] [facility] 00:[facility]:00 examination Medical Center (regime/therapy) [code = 276060980] Future Scheduled 1981-08-10 Urine screening for [facility] 00:00:00 protein (procedure) Medical Center [code = 712182830] Future Scheduled 1981-08-10 DIABETIC EYE EXAM [code [facility] 00:00:00 = DIABETIC EYE EXAM] Medical Center Future Scheduled 1981-08-10 Urine screening for [facility] 00:00:00 protein (procedure) Medical Center [code = 054842868] Future Scheduled 1977-08-[address] [facility] [...] colon Medical Ce nter (procedure) [code = 081678459] Future Scheduled 1971 Screening for malignant [facility] 00:00:00 neoplasm of colon Medical Ce nter (procedure) [code = 194047782] Future Scheduled 1971 CT Colonography (combo) [facility] 00:00:00 [code = CT Colonography [facility] (combo)] Future Scheduled 1971 Screening for malignant [facility] 00:00:00 neoplasm of colon Medical Ce nter (procedure) [code = 245276596] Future Scheduled 1971 Screening for malignant [facility] 00:00:00 neoplasm of colon Medical Ce nter (procedure) [code = 710597279] Future Scheduled 1971 Screening for malignant [facility] 00:00:00 neoplasm of colon Medical Ce nter (procedure) [code = 597122131] Future Scheduled 1971 Screening for malignant [facility] 00:00:00 neoplasm of colon Medical Ce nter (procedure) [code = 814635834] Future Scheduled 1971 Sigmoidoscopy [facility]code [facility] S[facility]oscopy] Medical Cente r Encounters Start End Encounter Admission Attending Care Care Encounter Source Date/Time Date/Time Type Type Clinicians Facility Department ID 2021-03-14 Outpatient [facility] [id number] Common 13:31:16 [id number] [facility] 2021-03-14 Outpatient Rodney, [facility] [id number] Common 13:16:25 Avnee [id number] [facility] 2020-12-[address] [facility] [id number] Univers 22:17:29 ity [facility] 2020-12-[address] [facility] [id number] Univers 20:46:22 [facility] 2020-08-14 Inpatient ER LORAINE, [facility] Urology [id number] [facility] 03:51:00 NUZHAT 2021-08-27 2021-08-27 Lab [facility] [id number] 00:00:00 00:00:00 Requisitio Suha romero [facility] 2020-12-20 2020-12-20 Outpatient Baum_L [facility] [id number] [place] 11:25:00 11:25:00 [id number] [facility] 2020-08-14 2020-08-18 [facility] ISABELLE Lou Yadavenna Nkiru [facility] [id number] 03:51:00 11:45:00 Encounter Deisy Rangel [facility] 2020-08-14 2020-08-14 Travel [facility] [id number] [facility] 00:[facility] 00:00:00 [facility] 2020-08-07 2020-08-07 [facility]EL[facility] [id number] Co mmon 00:00:00 00:00:00 Spirit - [facility] 2020-08-04 2020-08-04 [facility] [id number] Co mmon 00:00:00 00:00:00 VISIT MARIA VICTORIA Mosqueda it PT LEVEL 4 - [facility] 2020-03-18 2020-03-19 Emergency Radha Oliveira [facility] [id number] Univers 18:44:00 00:48:00 Tammy Pope 350.1.13.10 i ty [facility] 4.2.7.2.686 [facility] [phone] [facility] [address] 2020-03-18 2020-03-18 Outpatient Latoya MCFARLAND [facility] [id number] Univers 18:30:00 18:30:00 SAUL ity [facility] 2020-03-18 2020-03-18 Nurse Nurse, [facility] 1.2 .840.114 [id number] Univers 18:29:02 18:29:11 Visit Aquilino [facility] 350.1.13.10 ity [facility] 4.2.7.2.686 [facility] [phone] Ar dical [facility] [address] Office [address] One 2020-03-18 2020-03-18 Outpatient Latoya MCFARLAND [facility] [id number] Univers 17:40:00 17:40:00 [facility]-15 2020-03-15 Nurse Therapy, c Covid Infusion [facility] 1.2.840.114 [id number] Univers 09:44:59 18:56:55 Visit Stefany Guerrero 350.1.13.10 ity of CARE 4.2.7.2.686 [facility] CENTER AT [phone] Ar alessandro Lopes [facility] 2020-03-15 2020-03-15 Nurse Therapy, [facility] 1.2.840.114 [id number] 09:44:59 18:56:55 Visit [facility] Covid SPECIALTY 350.1.13.10 Infusion CARE 4.2.7.2.686 CENTER AT [phone] ROME Lopes [facility] 2020-03-15 2020-03-15 [facility] [id number] Univers 09:30:00 09:30:00 [facility] 2020-03-15 2020-03-15 Orders Doctor COLMENARES 1.2.840.114 [id number] Univers 00:00:00 00:00:00 Only Unassigned, JUAN JOSE 350.1.13.10 ity of [place] [facility] 4.2.7.2.686 [place] [phone] [facility] [address] 2020-03-15 2020-03-15 Orders Doctor COLMENARES 1.2.840.114 [id number] 00:00:00 00:00:00 Only Unassigned, JUAN JOSE 350.1.13.10 [place] [facility] 4.2.7.2.686 [id number] 009 2020-03-14 2020-03-14 [facility] [id number] Univers 09:00:00 09:00:00 [facility] 2020-03-12 2020-03-12 Emergency Debby Pardo [facility] 1.2.840 .114 [id number] Univers 17:49:00 21:01:00 Stefany Guerrero 350.1.13.10 ity of [place] 4.2.7.2.686 [facility] [phone] [facility] [address] Hall 2020-03-12 2020-03-12 Emergency X CESAR [facility] ERT [id number] Univers 17:49:00 21:01:00 [facility] Results Test Description Test Time Test Comments Results Result Comments Source Hepatitis C antibody 2021-08-27 10:38:58 Test Item Value Reference Range Interpretation Comme nts Hepatitis C Ab (test code = 39238-4) Nonreactive Nonreactive ЕЛЕНА (test code = ЕЛЕНА) Mobility Developer ID - DB Lab Interpretation (test code = 57957-5) Normal [facility] [id number] 10:38:58 Test Item Value Reference Range Interpretation Comments HEPATITIS C ANTIBODY (BEAKER) Nonreactive Nonreactive (test code = 367) Mobility Developer ID - DBBlood Culture - Routine (Left Venipuncture)2020-08-19 10:01:00 Test Item Value Reference Range Interpretation Comments Result (test code = No growth in 5 days 6463-4) [facility] ([facility]ipuncture)2020-08-19 10:01:00 Test Item Value Reference Range Interpretation Comments Result (test code = No growth in 5 days 6463-4) [facility] [id number] 10:01:00 Test Item Value Reference Range Interpretation Comments CULTURE (BEAKER) (test No growth in 5 days code = 1095) BLOOD [id number] 10:01:00 Test Item Value Reference Range Interpretation Comments CULTURE (BEAKER) (test No growth in 5 days code = 1095) POC-Glucose [id number] 08:00:00 Test Item Value Reference Range Interpretation Comments POC-Glucose Meter (test 249 mg/dL 70-110 H : TE STED AT [facility] code = 1538) [facility] [place] [address]: Mobility Developer/Techni adrian ID = [id number] for Estevan Bright n Lab Interpretation (test Abnormal code = 25076-4) [facility] [id number] 08:00:00 Test Item Value Reference Range Interpretation Comments POC-Glucose Meter (test 249 mg/dL 70-110 H : TE STED AT [facility] code = 1538) [address] [place] 399558: Mobility Developer/Techni adrian ID = [id number] for Estevan Bright n Lab Interpretation (test Abnormal code = 95718-2) [facility] [id number] 08:00:00 Test Item Value Reference Range Interpretation Comments POC-GLUCOSE METER 249 mg/dL 70-110 H : TESTED A T [facility] (BEAKER) (test code [address], = 1538) [facility] 77 478: Mobility Developer/Techni adrian ID = [id number] for Ventura Aguilar CBC with platelet count + automated [id number] 05:55:00 Test Item Value Reference Range Interpretation Comments WBC (test code = 6690-2) 4.8 See_Comment [A utomated message] The system [employer] generated this result transmitted ref erence range: 4.0 - 10 .0 K/L. The refe rence range was not u sed to interpret this result as normal/abnor mal. RBC (test code = 789-8) 4.22 See_Comment [Au tomated message] The system [employer] generated this result transmitted ref erence range: 4.20 - 5 .80 M/L. The refe rence range was not u sed to interpret this result as normal/abnor mal. MCHC (test code = 786-4) 33.5 See_Comment L [A utomated message] The system [employer] generated this result transmitted ref erence range: [...] See_Comment [Aut omated message] 777-3) The system [employer] generated this result transmitted ref erence range: 150 - 43 0 K/CU MM. The referen ce range was not u sed to interpret this result as normal/abnor mal. MPV (test code = 10.3 fL 6.0-11.5 46780-9) nRBC (test code = 413) 0 See_Comment [Aut omated message] The system [employer] generated this result transmitted ref erence range: 0 - 0 /1 00 WBC. The refere nce range was not u sed to interpret this result as normal/abnor mal. Lab Interpretation (test Abnormal code = 04582-4) [facility] Idcjrparhgxw0670-02-00 05:55:00 Test Item Value Reference Range Interpretation Comments % Neutros (manual) (test 33 % code = 1359) % Lymphs (manual) (test 55 % code = 1360) % Monos (manual) (test 8 % code = 1361) % Eos (manual) (test 4 % code = 1362) # Neutros (manual) (test 1.58 See_Comment L [A utomated message] code = 1365) The system [employer] generated this result transmitted ref erence range: 1.80 - 8 .00 K/L. The refe rence range was not u sed to interpret this result as normal/abnor mal. # Lymphs (manual) (test 2.64 See_Comment [Au tomated message] code = 1366) The system [employer] generated this result transmitted ref erence range: 1.48 - 4 .50 K/L. The refe rence range was not u sed to interpret this result as normal/abnor mal. # Monos (manual) (test 0.38 See_Comment [Aut omated message] code = 1367) The system [employer] generated this result transmitted ref erence range: 0.00 - 1 .30 K/L. The refe rence range was not u sed to interpret this result as normal/abnor mal. # Eos (manual) (test 0.19 See_Comment [Autom ated message] code = 1368) The system [employer] generated this result transmitted ref erence range: 0.00 - 0 .50 K/L. The refe rence range was not u sed to interpret this result as normal/abnor mal. Total Counted (test code 100 = 1351) WBC Morphology (test Normal code = 487) Platelet Morphology Normal (test code = 486) RBC Morphology (test Normal code = 762) Lab Interpretation (test Abnormal code = 29123-7) [facility] + automated [id number] 05:55:00 Test Item Value Reference Range Interpretation Comments WBC (test code = 6690-2) 4.8 See_Comment [A utomated message] The system [employer] generated this result transmitted ref erence range: 4.0 - 10 .0 K/L. The refe rence range was not u sed to interpret this result as normal/abnor mal. RBC (test code = 789-8) 4.22 See_Comment [Au tomated message] The system [employer] generated this result transmitted ref erence range: 4.20 - 5 .80 M/L. The refe rence range was not u sed to interpret this result as normal/abnor mal. MCHC (test code = 786-4) 33.5 See_Comment L [A utomated message] The system [employer] generated this result transmitted ref erence range: [...] See_Comment [Aut omated message] 777-3) The system [employer] generated this result transmitted ref erence range: 150 - 43 0 K/CU MM. The referen ce range was not u sed to interpret this result as normal/abnor mal. MPV (test code = 10.3 fL 6.0-11.5 85608-3) nRBC (test code = 413) 0 See_Comment [Aut omated message] The system [employer] generated this result transmitted ref erence range: 0 - 0 /1 00 WBC. The refere nce range was not u sed to interpret this result as normal/abnor mal. Lab Interpretation (test Abnormal code = 10937-6) [facility] [id number] 05:55:00 Test Item Value Reference Range Interpretation Comments % Neutros (manual) (test 33 % code = 1359) % Lymphs (manual) (test 55 % code = 1360) % Monos (manual) (test 8 % code = 1361) % Eos (manual) (test 4 % code = 1362) # Neutros (manual) (test 1.58 See_Comment L [A utomated message] code = 1365) The system [employer] generated this result transmitted ref erence range: 1.80 - 8 .00 K/L. The refe rence range was not u sed to interpret this result as normal/abnor mal. # Lymphs (manual) (test 2.64 See_Comment [Au tomated message] code = 1366) The system [employer] generated this result transmitted ref erence range: 1.48 - 4 .50 K/L. The refe rence range was not u sed to interpret this result as normal/abnor mal. # Monos (manual) (test 0.38 See_Comment [Aut omated message] code = 1367) The system [employer] generated this result transmitted ref erence range: 0.00 - 1 .30 K/L. The refe rence range was not u sed to interpret this result as normal/abnor mal. # Eos (manual) (test 0.19 See_Comment [Autom ated message] code = 1368) The system [employer] generated this result transmitted ref erence range: 0.00 - 0 .50 K/L. The refe rence range was not u sed to interpret this result as normal/abnor mal. Total Counted (test code 100 = 1351) WBC Morphology (test Normal code = 487) Platelet Morphology Normal (test code = 486) RBC Morphology (test Normal code = 762) Lab Interpretation (test Abnormal code = 83396-4) [facility] W/PLT COUNT & AUTO [id number] 05:55:00 Test Item Value Reference Range Interpretation [...] (test code Normal = 762) Basic Metabolic Sqpfk4427-02-14 05:36:00 Test Item Value Reference Range Interpretation Comments Sodium (test code = 138 meq/L 727-723 1311-2) Potassium (test code = 3.9 meq/L 3.6-5.5 2823-3) Chloride (test code = 105 meq/L 98-106 2075-0) CO2 (test code = 22 meq/L -2027-10) BUN (test code = 4 mg/dL 10-26 L 3094-0) Creatinine (test code 0.91 mg/dL 0.50-1.20 = 2160-0) Glucose (test code = 285 mg/dL 70-110 H 2345-7) Calcium (test code = 9.7 mg/dL 8.5-10.5 03884-3) EGFR (test code = 107 mL/min/1.73 sq [place] [facility] [address]-1) NOT ACCURATE CREATININE CLEARANCE IN PREDICTING GLOMERULAR FILTRATION RATE . ESTIMATED GFR I S NOT APPLICABLE FOR DIALYSIS PATIENTS. ЕЛЕНА (test code = ЕЛЕНА) Mobility Developer ID - [id number] ID - [id number] ID - ovbe09Lborcpdh ID - vhxr76Rdskilft ID - iiaj73Neocfdlv ID - bncp76Wqcfjnez ID - gphm05Dswlzofd ID - ytkt79Vtwdjcez ID - ydbr12Hyizeslm ID - iyva59Fdopgyqq ID - bssx70Xiqkblel ID - wpjz92Yeyrupxg ID - zdxs12 Lab Interpretation Abnormal (test code = 95904-9) [facility] Hospital[facility]asi Metabolic [id number] 05:36:00 Test Item Value Reference Range Interpretation Comments Sodium (test code = 138 meq/L 171-709 4321-2) Potassium (test code = 3.9 meq/L 3.6-5.5 2823-3) Chloride (test code = 105 meq/L 98-106 2075-0) CO2 (test code = 22 meq/L 2027-10) BUN (test code = 4 mg/dL 10-26 L 3094-0) Creatinine (test code 0.91 mg/dL 0.50-1.20 = 2160-0) Glucose (test code = 285 mg/dL 70-110 H 2345-7) Calcium (test code = 9.7 mg/dL 8.5-10.5 73673-2) EGFR (test code = 107 mL/min/1.73 [place] [address]-6) NOT ACCURATE CREATININE CLEARANCE IN PREDICTING GLOMERULAR FILTRATION RATE . ESTIMATED GFR I S NOT APPLICABLE FOR DIALYSIS PATIENTS. ЕЛЕНА (test code = ЕЛЕНА) Mobility Developer ID - [id number] ID - [id number] ID - mnur24Sptqrore ID - [id number] ID - orke47Otuscpmq ID - iazc85Mhqkidty ID - noqs48Cdizyqjb ID - yvjg18Mvtqkbuh ID - tkfa66Kdokisnx ID - cqyv95Opdejqka ID - [id number] ID - yboe70Wvpupzuy ID - zdxs12 Lab Interpretation Abnormal (test code = 08494-0) [facility] METABOLIC [id number] 05:36:00 Test Item Value Reference Range Interpretation [...] S NOT APPLICABLE FOR DIALYSIS PATIEN TS. Mobility Developer ID - [id number] ID - [id number] ID - iwms69Ybkqzami ID - fwwg49Jrerxhmd ID - wihl42Rdkynpsa ID - izfb97Zzxyjxct ID - gqzh14Fvbsntkm ID - rnzf05Wqadwwwf ID - jzqe52Hevpwjmg ID - yphe40Lsorlatu ID - hxzy70Oolkkqij ID - mrfc72Vfyruwlx ID - [id number]-YGTMILQ [id number] 20:26:00 Test Item Value Reference Range Interpretation Comments POC-GLUCOSE METER 183 mg/dL 70-110 H : TESTED A T [address] (BEAKER) (test code [address], = 1538) [place] [address]: Mobility Developer/Techni adrian ID = [id number] for Halima Neff POCT-GLUCOSE [id number] 16:44:00 Test Item Value Reference Range Interpretation Comments POC-GLUCOSE METER 196 mg/dL 70-110 H : TESTED A T [address] (BEAKER) (test code [address], = 1538) [place] [address] 478: Mobility Developer/Techni adrian ID = [id number] for Alicia Barcenas POCT-GLUCOSE [id number] 11:16:00 Test Item Value Reference Range Interpretation Comments POC-GLUCOSE METER 320 mg/dL 70-110 H : TESTED A T [address] (BEAKER) (test code [address], = 1538) [place] [address]: Mobility Developer/Techni adrian ID = [id number] for Alicia Barcenas CBC W/PLT COUNT & AUTO [id number] 09:00:00 Test Item Value Reference Range Interpretation [...] MORPHOLOGY (BEAKER) (test code Normal = 762) [id number] 08:35:00 Test Item Value Reference Range Interpretation Comments Magnesium (test code = 1.9 mg/dL 1.5-3.0 91430-5) ЕЛЕНА (test code = ЕЛЕНА) Mobility Developer ID - [id number] ID - [id number] ID - [id number] ID - [id number] Lab Interpretation (test Normal code = 39150-4) [facility]esium2021-07-01 08:35:00 Test Item Value Reference Range Interpretation Comments Magnesium (test code = 1.9 mg/dL 1.5-3.0 14368-3) ЕЛЕНА (test code = ЕЛЕНА) Mobility Developer ID - [id number] ID - [id number] ID - [id number] ID - [id number] Lab Interpretation (test Normal code = 45552-4) [facility]UM2021-07-01 08:35:00 Test Item Value Reference Range Interpretation Comments MAGNESIUM (BEAKER) (test code = 1.9 mg/dL 1.5-3.0 627) Mobility Developer ID - [id number] ID - [id number] ID - [id number] ID - [id number] METABOLIC [id number] 08:34:00 Test Item Value Reference Range Interpretation [...] S NOT APPLICABLE FOR DIALYSIS PATIEN TS. Mobility Developer ID - [id number] ID - [id number] ID - [id number] ID - [id number] ID - [id number] ID - FYWEQ465Gndfodwl ID - [id number] ID - [id number] ID - [id number] ID - [id number] Vancomycin level, ajdkiz2052-34-09 06:00:00 Test Item Value Reference Range Interpretation Comments Vancomycin Tr (test code = 11.1 ug/mL 10.0-20.0 4092-3) ЕЛЕНА (test code = ЕЛЕНА) Mobility Developer ID - [id number] Lab Interpretation (test Normal code = 95256-5) [facility] Hospital[facility]com[facility], [id number] 06:00:00 Test Item Value Reference Range Interpretation Comments Vancomycin Tr (test code = 11.1 ug/mL 10.0-20.0 4092-3) ЕЛЕНА (test code = ЕЛЕНА) Mobility Developer ID - [id number] Lab Interpretation (test Normal code = 27218-9) [facility] HospitalVANCOMYCIN LEVEL, [id number] 06:00:00 Test Item Value Reference Range Interpretation Comments VANCOMYCIN TROUGH (BEAKER) (test 11.1 ug/mL 10.0-20.0 code = 522) Mobility Developer ID - [id number] [id number] 21:21:00 Test Item Value Reference Range Interpretation Comments POC-GLUCOSE METER 270 mg/dL 70-110 H : TESTED A T [address] (BEAKER) (test code [address], = 1538) [place] [address]: Mobility Developer/Techni adrian ID = [id number] for Aanu nisha singhicity POCT-GLUCOSE [id number] 17:13:00 Test Item Value Reference Range Interpretation Comments POC-GLUCOSE METER 266 mg/dL 70-110 H : TESTED A T [address] (BEAKER) (test code [address], = 1538) [place] [address]: Mobility Developer/Techni adrian ID = [id number] for Garrett h, Nilam POCT-GLUCOSE [id number] 12:01:00 Test Item Value Reference Range Interpretation Comments POC-GLUCOSE METER 283 mg/dL 70-110 H : TESTED A T [address] (BEAKER) (test code [address], = 1538) [place] [address]: Mobility Developer/Techni adrian ID = [id number] for Garrett h, Nilam POCT-GLUCOSE [id number] 08:47:00 Test Item Value Reference Range Interpretation Comments POC-GLUCOSE METER 253 mg/dL 70-110 H : TESTED A T [address] (BEAKER) (test code [address], = 1538) [facility] 77 478: Mobility Developer/Techni adrian ID = [id number] for Nury Ying Urine [id number] 08:39:00 Test Item Value Reference Range Interpretation Comments Result (test code = 6463-4) [facility] [id number] 08:39:00 Test Item Value Reference Range Interpretation Comments Result (test code = 6463-4) No growth [facility] [id number] 06:09:00 Test Item Value Reference Range Interpretation [...] S NOT APPLICABLE FOR DIALYSIS PATIEN TS. Mobility Developer ID - LITOOperator ID - LITOOperator ID - LITOOperator ID - LITOOperator ID - LITOOperator ID - LITOOperator ID - LITOOperator ID - LITOOperator ID - LITOOperator ID - LITOOperator ID - LITOOperator ID - LITOOperator ID - LITOCBC W/PLT COUNT & AUTO [id number] 05:40:00 Test Item Value Reference Range Interpretation [...] PERCENT (BEAKER) (test code = 2801) POCT-GLUCOSE [id number] 21:41:00 Test Item Value Reference Range Interpretation Comments POC-GLUCOSE METER 270 mg/dL 70-110 H : TESTED A T SLSL 1317 (ABIODUN) (test code [address], = 1538) [facility] 77 [address]: Mobility Developer/Techni adrian ID = [id number] for Lorenza Castanon VANCOMYCIN LEVEL, [id number] 20:39:00 Test Item Value Reference Range Interpretation Comments VANCOMYCIN TROUGH (ABIODUN) (test 6.1 ug/mL 10.0-20.0 L code = 522) Mobility Developer ID - [id number] 17:05:00 Test Item Value Reference Range Interpretation Comments POC-GLUCOSE METER 295 mg/dL 70-110 H : Notified RN/MD: TESTED (ABIODUN) (test code AT [facility] [address] = 1538) [facility], [facility] [address]: Mobility Developer/Techni adrian ID = [id number] for Evan Husain CT, [id number] 15:49:00Unlisted Reason for Exam - Click Yes and Enter Reason Below->YesConcern for groin abscessUnlistedReason for Exam->Concern for right groin \\T\\ perineal abscess vs nec fascWill this procedure require oral contrast?->NoVETER[facility] SAN DIEGOName: LINDA ROSENTHAL : 1970 Sex: MFINAL REPORT [...] infiltration of the liver. Signed: Dennis Huerta MDRmakaylaort Verified Date/Time: 08/15/2020 15:49:43 Reading Location: [facility] Diagnostic Imaging Reading Room - [place] [address] 1129 POCT-GLUCOSE [id number] 11:18:00 Test Item Value Reference Range Interpretation Comments POC-GLUCOSE METER 288 mg/dL 70-110 H : Notified RN/MD: [facility] (test code AT [facility] [address] = 1538) [facility] [address]: Mobility Developer/Techni adrian ID = [id number] for Prateekk erManuelitaben POCT-GLUCOSE [id number] 07:33:00 Test Item Value Reference Range Interpretation Comments POC-GLUCOSE METER 295 mg/dL 70-110 H : Notified RN/MD: TESTED (BEAKER) (test code AT [facility] [address] = 1538) [facility] [address]: Mobility Developer/Techni adrian ID = [id number] for Prateekk isabelle, Manuelitaben BASIC METABOLIC [id number] 05:52:00 Test Item Value Reference Range Interpretation [...] S NOT APPLICABLE FOR DIALYSIS PATIEN TS. Mobility Developer ID - LITOOperator ID - LITOOperator ID - LITOOperator ID - LITOOperator ID - LITOOperator ID - LITOOperator ID - LITOOperator ID - LITOOperator ID - LITOOperator ID - LITOOperator ID - LITOOperator ID - LITOCBC W/PLT COUNT & AUTO [id number] 05:19:00 Test Item Value Reference Range Interpretation [...] PERCENT (BEAKER) (test code = 2801) POCT-GLUCOSE [id number] 21:11:00 Test Item Value Reference Range Interpretation Comments POC-GLUCOSE METER 279 mg/dL 70-110 H : TESTED A T SLSL 1317 (BEAKER) (test code [address], = 1538) [facility] 77 478: Mobility Developer/Techni adrian ID = [id number] for sammi Peter SARS-CoV2/RT-PCR (Asymptomatic ONLY)2020-08-14 18:18:00 Test Item Value Reference Range Interpretation Comments SARS-COV2/RT-PCR Negative Not Detected, Performanc e of the Xpert (test code = Negative, See Xpress 14720-1) external report SARS-CoV-2/F andrea/RSV test for linked [...] virus is presen t at levels below e analytical limi t of detection (LOD: [...] zed for the duration of the declaration prateek t circumstances e xist justifying the authorization o f emergency use o f in vitro diagnosti c tests for detection a nd/or diagnosis of CO VID-19 under Section 5 64(b)(1) of the Federal Food, Drug and Cosmet ic Act, 21 U.S.C. 360bbb-3(b)(1), unless the authorizati on is terminated or r evoked sooner. Fact Sh eet for Healthcare Prov iders: https://www.ScreenTag.Xeneta/ Documents/Xpert %20Xpress %05QYHV-MoJ-5-F andrea-RSV/30 2-4508%20Rev.%2 0B%20HCP% 20Fact%20Sheet. pdf Fact Sheet for Healt hcare Patients: https://www.ScreenTag.Xeneta/ Documents/Xpert %20Xpress %13JLFB-BfP-5-F andrea-RSV/30 2-4507%20Rev.%2 0B%20Pati ent%20Fact%20Sh eet.pdf SARS-COV-2 SLSL Performed at:[facility] PERFORMING LAB [place] [id number] (test code = [address] [address]-0) [place] [address] ph: [phone] [facility]Asymptomatic ONLY)2020-08-14 18:18:00 Test Item Value Reference Range Interpretation Comments SARS-COV2/RT-PCR Negative Not Detected, Performanc e of the Xpert (test code = Negative, See Xpress 72478-5) external report SARS-CoV-2/F andrea/RSV test for linked [...] zed for the duration of the declaration prateek t circumstances e xist justifying the authorization o f emergency use o f in vitro diagnosti c tests for detection a nd/or diagnosis of CO VID-19 under Section 5 64(b)(1) of the Federal Food, Drug and Cosmet ic Act, 21 U.S.C. 360bbb-3(b)(1), unless the authorizati on is terminated or r evoked sooner. Fact Sh eet for Healthcare Prov iders: https://www.ScreenTag.Xeneta/ Documents/Xpert %20Xpress %80BPVU-TaQ-0-F andrea-RSV/30 2-4508%20Rev.%2 0B%20HCP% 20Fact%20Sheet. pdf Fact Sheet for Healt hcare Patients: https://www.ScreenTag.Xeneta/ Documents/Xpert %20Xpress %35HZOX-YkP-3-F andrea-RSV/30 2-4507%20Rev.%2 0B%20Pati ent%20Fact%20Sh eet.pdf SARS-COV-2 SLSL Performed at:[facility] PERFORMING LAB [address] (test code = [address] [address]-5) [place] [address] ph: [phone] [facility] ([facility])2020-08-14 18:18:00 Test Item Value Reference Range Interpretation Comments SARS-COV2/RT-PCR Negative Not Detected, Performanc e of the Xpert (test code = Negative, See Xpress 1211543) external report SARS-CoV-2/F andrea/RSV test for linked [...] ur from improper specim en collection; pino jose francisco to follow the dora mmended sample collecti [...] zed for the duration of the declaration prateek t circumstances e xist justifying the authorization o f emergency use o f in vitro diagnosti c tests for detection a nd/or diagnosis of CO VID-19 under Section 5 64(b)(1) of the Federal Food, Drug and Cosmet ic Act, 21 U.S.C. 360bbb-3(b)(1), unless the authorizati on is terminated or r evoked sooner.Fact She et for Healthcare Prov iders: https://www.ScreenTag.com/ Documents/Xpert %20Xpress %25QDBL-WrR-1-F andrea-RSV/30 2-4508%20Rev.%2 0B%20HCP% 20Fact%20Sheet. pdfFact Sheet for Healt hcare Patients: https://www.ScreenTag.com/ Documents/Xpert %20Xpress %11ADTX-LsN-6-F andrea-RSV/30 2-4507%20Rev.%2 0B%20Pati ent%20Fact%20Sh eet.pdf SARS-COV-2 SLSL Performed at:[facility] (test code = [place] [address]) [place], [place] [address]d h: [phone] POCT-GLUCOSE [id number] 16:54:00 Test Item Value Reference Range Interpretation Comments POC-GLUCOSE METER 261 mg/dL 70-110 H : Notified RN/MD: TESTED (ABIODUN) (test code AT [facility] [address] = 1538) [facility] [address]: Mobility Developer/Techni adrian ID = [id number] for Evan Husain POCT-GLUCOSE [id number] 11:22:00 Test Item Value Reference Range Interpretation Comments POC-GLUCOSE METER 337 mg/dL 70-110 H : Notified RN/MD: TESTED (ABIODUN) (test code AT [facility] [address] = 1538) [facility] [address]: Mobility Developer/Techni adrian ID = [id number] for Evan Husain U/S, TESTICULAR (SCROTUM)2020-08-14 09:17:00Reason for exam:->Swelling, pain, erythema of the right scrotum [facility]OName: LINDA ROSENTHAL JAIMIE : 1970 Sex: MFINAL REPORT Testicular ultrasound. [...] Marks Verified Date/Time: 08/14/2020 09:17:05 Reading Location: [facility] Radiology Reading Room POCT-GLUCOSE [id number] 07:33:00 Test Item Value Reference Range Interpretation Comments POC-GLUCOSE METER 404 mg/dL 70-110 HH : Notified RN/MD: TESTED (BEAKER) (test code AT [facility] [address] = 1538) [facility] [address]: Mobility Developer/Techni adrian ID = [id number] for Evan Husain Urinalysis w/Microscopic + Reflex to [id number] 07:32:00 Test Item Value Reference Range Interpretation Comments Color, UA (test code Yellow = 5778-6) Clarity, UA (test Slightly Cloudy code = 5767-9) Specific [place], UA 1.020 1.001-1.035 (test code = 5811-5) pH, UA (test code = 6.0 5.0-8.0 5803-2) Protein, UA (test Negative Negative code = 66703-7) Glucose, UA (test >=1000 mg/dL Negative A code = 365) Ketones, UA (test 15 mg/dL Negative A code = 2514-8) Bilirubin, UA (test Negative Negative code = 93991-8) Blood, UA (test code Trace Negative A = 57494-1) Nitrite, UA (test Negative Negative code = 5802-4) Leukocytes, UA (test Negative Negative code = 5799-2) Urobilinogen, UA 0.2 mg/dL 0.2-1.0 (test code = 04417-1) Bacteria, UA (test Rare code = 74580-3) RBC, UA (test code = 5-10 See_Comment [Autom ated 799-7) message] The system which generated this result transmit odalys reference range : /HPF. The reference range was not used to interpret this result as normal/abnormal . WBC, UA (test code = 20-50 See_Comment [Autom ated 75354-2) message] The system which generated this result transmit odalys reference range : /HPF. The reference range was not used to interpret this result as normal/abnormal . SQUAMOUS EPITHELIAL <5 See_Comment [Automa odalys (test code = 36481-7) messag e] The system which generated this result transmit odalys reference range : /HPF. The reference range was not used to interpret this result as normal/abnormal . Specimen Source (test code = 2795) Lab Interpretation Abnormal (test code = 19211-7) [facility] + Reflex to Culture 2020-08-14 07:32:00 Test Item Value Reference Range Interpretation Comments Color, UA (test code Yellow = 5778-6) Clarity, UA (test Slightly Cloudy code = 5767-9) Specific [place], UA 1.020 1.001-1.035 (test code = 5811-5) pH, UA (test code = 6.0 5.0-8.0 5803-2) Protein, UA (test Negative Negative code = 98215-7) Glucose, UA (test >=1000 mg/dL Negative A code = 365) Ketones, UA (test 15 mg/dL Negative A code = 2514-8) Bilirubin, UA (test Negative Negative code = 21881-7) Blood, UA (test code Trace Negative A = 29009-8) Nitrite, UA (test Negative Negative code = 5802-4) Leukocytes, UA (test Negative Negative code = 5799-2) Urobilinogen, UA 0.2 mg/dL 0.2-1.0 (test code = 16865-9) Bacteria, UA (test Rare code = 74692-7) RBC, UA (test code = 5-10 See_Comment [Autom ated 799-7) message] The system which generated this result transmit odalys reference range : /HPF. The reference range was not used to interpret this result as normal/abnormal . WBC, UA (test code = 20-50 See_Comment [Autom ated 33982-0) message] The system which generated this result transmit odalys reference range : /HPF. The reference range was not used to interpret this result as normal/abnormal . SQUAMOUS EPITHELIAL <5 See_Comment [Automa odalys (test code = 04594-3) messag e] The system which generated this result transmit odalys reference range : /HPF. The reference range was not used to interpret this result as normal/abnormal . Specimen Source (test code = 2795) Lab Interpretation Abnormal (test code = 66985-6) [facility]/ REFLEX URINE [id number] 07:32:00 Test Item Value Reference Range Interpretation [...] 1663) SOURCE(BEAKER) (test code = 2795) Hemoglobin [id number] 06:51:00 Test Item Value Reference Range Interpretation Comments Hemoglobin A1C (test code 14.0 % 4.3-6.1 H = 4548-4) ЕЛЕНА (test code = ЕЛЕНА) Mobility Developer ID - [id number] Lab Interpretation (test Abnormal code = 83750-6) [facility] HospitalHem[facility] [id number] 06:51:00 Test Item Value Reference Range Interpretation Comments Hemoglobin A1C (test code 14.0 % 4.3-6.1 H = 4548-4) ЕЛЕНА (test code = ЕЛЕНА) Mobility Developer ID - [id number] Lab Interpretation (test Abnormal code = 97626-5) [facility]HEMOGLOBIN [id number] 06:51:00 Test Item Value Reference Range Interpretation Comments HEMOGLOBIN A1C (BEAKER) (test code = 14.0 % 4.3-6.1 H 368) Mobility Developer ID - [id number] METABOLIC [id number] 06:31:00 Test Item Value Reference Range Interpretation [...] S NOT APPLICABLE FOR DIALYSIS PATIEN TS. Mobility Developer ID - [id number] ID - [id number] ID - [id number] ID - [id number] ID - [id number] ID - [id number] ID - CEZW88Isrfpees ID - PMWX04Bdlhhgen ID - DURI92Jnlrlobh ID - [id number] 06:29:00 Test Item Value Reference Range Interpretation Comments MAGNESIUM (BEAKER) (test code = 1.7 mg/dL 1.5-3.0 627) Mobility Developer ID - [id number] ID - [id number] ID - [id number] ID - [id number] [id number] 06:26:00 Test Item Value Reference Range Interpretation Comments Phosphorus (test code = 3.3 mg/dL 2.5-4.5 2777-1) ЕЛЕНА (test code = ЕЛЕНА) Mobility Developer ID - [id number] Lab Interpretation (test Normal code = 66493-4) [facility]osphorus2021-06-28 06:26:00 Test Item Value Reference Range Interpretation Comments Phosphorus (test code = 3.3 mg/dL 2.5-4.5 2777-1) ЛЕЕНА (test code = ЕЛЕНА) Mobility Developer ID - [id number] Lab Interpretation (test Normal code = 88938-0) [facility]PHOSPHORUS2021-06-28 06:26:00 Test Item Value Reference Range Interpretation Comments PHOSPHORUS (BEAKER) (test code = 3.3 mg/dL 2.5-4.5 604) Mobility Developer ID - [id number] time/[id number] 06:24:00 Test Item Value Reference Interpretation Comments [...] valves. Lab Interpretation Normal (test code = 93894-8) [facility] HospitalProthrombin time/[id number] 06:24:00 Test Item Value Reference Interpretation Comments [...] valves. Lab Interpretation Normal (test code = 34285-8) [facility] HospitalPROTHROMBIN TIME/[id number] 06:24:00 Test Item Value Reference Range Interpretation Comments PROTIME (BEAKER) 10.8 seconds 9.3-12.0 Final Infor mation (test code = 759) (Auto Outp ut) INR (BEAKER) (test 0.97 See_Comment Final Inf ormation code = 370) (Auto Output) [Automated mess age] The system [employer] generated this result transmitted ref erence range: <=5.90. The reference range was not used to int erpret this result as normal/abnormal . RECOMMENDED COUMADIN/WARFARIN INR THERAPY RANGESSTANDARD DOSE: 2.0 - 3.0 Includes: PROPHYLAXIS for venous thrombosis, systemic embolization; TREATMENT for venous thrombosis and/or pulmonary embolus.HIGH RISK: Target INR is 2.5-3.5 for patients with mechanical heart valves.CBC W/PLT COUNT & AUTO [id number] 06:16:00 Test Item Value Reference Range Interpretation [...] PERCENT (BEAKER) (test code = 2801) POCT-GLUCOSE [id number] 04:21:00 Test Item Value Reference Range Interpretation Comments POC-GLUCOSE METER 332 mg/dL 70-110 H : TESTED A T SLSL 1317 (BEAKER) ([address] [address] = 15[address]) [facility] [address]: Mobility Developer/Techni adrian ID = [id number] for Francesca Lassiter Lipid Panel w/ Chol/HDL [id number] 00:00:00 Test Item Value Reference Range Interpretation Comments Cholesterol, Total (test code = 2093-3) 135 100-199 Triglycerides (test code = 2571-8) 488 0-149 HDL Cholesterol (test code = 2085-9) 33 >39 T. Chol/HDL Ratio (test code = 9830-1) 4.1 0.0-5.0 Urinalysis, [id number] 00:00:00 Test Item Value Reference Range Interpretation Comments Specific [place] (test code = >=1.030 1.005-1.030 2965-2) pH (test code = 5803-2) 6.0 5.0-7.5 Urine-Color (test code = 5778-6) Yellow Yellow Appearance (test code = 5767-9) Clear Clear WBC Esterase (test code = 5799-2) Negative Negative Protein (test code = 85406-0) 2+ Negative/Trace Glucose (test code = 2349-9) 3+ Negative Ketones (test code = 2514-8) Trace Negative Occult Blood (test code = 5794-3) Negative Negative Bilirubin (test code = 5770-3) Negative Negative Urobilinogen,Semi-Qn (test code = 0.2 0.2-1.0 47690-1) Nitrite, Urine (test code = Negative Negative 5802-4) Microscopic Examination (test code See below: = 59228-1) Microalbumin/Creat Ratio, Random [id number] 00:00:00 Test Item Value Reference Range Interpretation Comments Creatinine, Urine (test code = 2161-8) 88.2 Not Estab. Albumin, Urine (test code = 34037-9) 264.6 Not Estab. Alb/Creat Ratio (test code = 06373-1) 300 0-29 Hemoglobin [id number] 00:00:00 Test Item Value Reference Range Interpretation Comments Hemoglobin A1c (test code = 4548-4) 12.9 4.8-5.6 Comp. Metabolic Panel (14) (CMP)2020-08-04 00:00:00 Test Item Value Reference Range Interpretation Comments Glucose (test code = 2345-7) 388 65-99 BUN (test code = 3094-0) 13 6-24 Creatinine (test code = 2160-0) 0.92 0.76-1.27 eGFR If NonAfricn Am (test code = 98 >59 89920-5) eGFR If Africn Am (test code = 59194-1) 113 >59 BUN/Creatinine Ratio (test code = 14 9-20 3097-3) Sodium (test code = 2951-2) 136 134-144 Potassium (test code = 2823-3) 5.3 3.5-5.2 Chloride (test code = 2075-0) 93 96-106 Carbon Dioxide, Total (test code = 24 -2027-9) Calcium (test code = 44139-5) 11.0 8.7-10.2 Protein, Total (test code = 2885-2) 8.3 6.0-8.5 Albumin (test code = 1751-7) 4.8 4.0-5.0 Globulin, Total (test code = 69453-8) 3.5 1.5-4.5 A/G Ratio (test code = 1759-0) 1.4 1.2-2.2 Bilirubin, Total (test code = 1974-2) 0.3 0.0-1.2 Alkaline Phosphatase (test code = 85 48-121 6768-6) AST (SGOT) (test code = 1920-8) 49 0-40 ALT (SGPT) (test code = 1742-6) 63 0-44 CBC With Differential/Bdrwbfcu2083-20-34 00:00:00 Test Item Value Reference Range Interpretation Comments WBC (test code = 6690-2) 9.1 3.4-10.8 RBC (test code = 789-8) 5.10 4.14-5.80 Hemoglobin (test code = 718-7) 14.7 13.0-17.7 Hematocrit (test code = 4544-3) 44.8 37.5-51.0 MCV (test code = 787-2) 88 79-97 MCH (test code = 785-6) 28.8 26.6-33.0 MCHC (test code = 786-4) 32.8 31.5-35.7 RDW (test code = 788-0) 12.9 11.6-15.4 Platelets (test code = 777-3) 477 150-450 Neutrophils (test code = 770-8) 46 Not Estab. Lymphs (test code = 736-9) 41 Not Estab. Monocytes (test code = 5905-5) 8 Not Estab. Eos (test code = 713-8) 1 Not Estab. Basos (test code = 706-2) 1 Not Estab. Immature Cells (test code = UNLOINC) Neutrophils (Absolute) (test code = 4.1 1.4-7.0 751-8) Lymphs (Absolute) (test code = 731-0) 3.8 0.7-3.1 Monocytes(Absolute) (test code = 742-7) 0.7 0.1-0.9 Eos (Absolute) (test code = 711-2) 0.1 0.0-0.4 Baso (Absolute) (test code = 704-7) 0.1 0.0-0.2 Immature Granulocytes (test code = 3 Not Estab. 97947-9) Immature Grans (Abs) (test code = 0.3 0.0-0.1 87943-7) NRBC (test code = 56583-8) Hematology Comments: (test code = 94893-4) BASIC METABOLIC PANEL (NA, K, CL, CO2, GLUCOSE, BUN, CREATININE, CA)2020-03-19 05:46:00 Test Item Value Reference Range Interpretation Comments NA (test code = 140 mmol/L 135-145 8422264660) K (test code = 4.0 mmol/L 3.5-5 9415422849) CL (test code = 104 mmol/L 98-108 2746875450) CO2 TOTAL (test code = 24 mmol/L 23-31 4460615727) AGAP (test code = 2-16 0324565366) BUN (test code = 23 mg/dL 7-23 8728769676) GLUCOSE (test code = 114 mg/dL 70-110 H 8898147118) CREATININE (test code = 1.09 mg/dL 0.6-1.25 8218691343) CALCIUM (test code = 9.4 mg/dL 8.6-10.6 4718278355) eGFR Calculation mL/min/1.73m2 (Non-) (test code = 0389483678) eGFR Calculation mL/min/1.73m2 () (test code = 6454464634) ЕЛЕНА (test code = ЕЛЕНА) Association of [...] tests). Lab Interpretation Abnormal (test code = 99388-6) [facility] Test Item Value Reference Range Interpretation Comments APPEARANCE (test code = Cloudy Clear A 1621771799) COLOR (test code = Gricelda Yellow A 2583538035) PH (test code = 4.8-8.0 9351092761) SP GRAVITY (test code = 1.003-1.030 6432519612) GLU U QUAL (test code = Normal Normal 1019828939) BLOOD (test code = 1+ Negative A 9737483870) KETONES (test code = 20 mg/dL Negative A 3308970555) PROTEIN (test code = 500 mg/dL Negative A 2887-8) UROBILIN (test code = 4.0 mg/dL Normal A 8990095552) BILIRUBIN (test code = 2 mg/dL Negative A 6705821847) NITRITE (test code = Negative Negative 8365019765) LEUK BRIDGET (test code = Negative Negative 3480345663) RBC/HPF (test code = See_Comment [Autom ated message] 9421844818) The system [employer] generated this result transmit odalys reference range : 0 - 3 HPF. The refe rence range was not u sed to interpret th is result as normal/abnormal . WBC/HPF (test code = See_Comment H [Autom ated message] 3118072179) The system [employer] generated this result transmit odalys reference range : 0 - 5 HPF. The refe rence range was not u sed to interpret th is result as normal/abnormal . BACTERIA (test code = Few Negative A 1520823034) MUCOUS (test code = Marked Negative LPF A 1251031956) SQ EPITH (test code = HPF 2715147019) HYAL CAST (test code = See_Comment H [Aut omated message] 0496948794) The system [employer] generated this result transmit odalys reference range : <=2 LPF. The refere nce range was not u sed to interpret th is result as normal/abnormal . Lab Interpretation (test Abnormal code = 27760-9) [facility] + LACTIC [id number] 03:32:00 Test Item Value Reference Range Interpretation Comments PH (test code = 7.32-7.42 3053035385) PCO2 [place] (test code = See_Comment L [Auto mated 5763318658) message] The sy stem which generated this result transmitted reference range : 41 - 51 mmHg. The reference range was not used to interpret this result as normal/abnormal . PO2 [place] (test code = See_Comment [Autom ated 1635306436) message] The sy stem which generated this result transmitted reference range : 25 - 40 mmHg. The reference range was not used to interpret this result as normal/abnormal . HCO3 [place] (test code = See_Comment L [Auto mated 9659532205) message] The sy stem which generated this result transmitted reference range : 24 - 28 mEq/L. The reference range was not used to interpret this result as normal/abnormal . AC VBE(BEAKER) (test mEq/L code = 0035139060) LACTIC ACID (test code 1.72 mmol/L 0.5-2.2 = 8533185200) Lab Interpretation Abnormal (test code = 68767-8) [facility]2020-03-19 01:51:00 Test Item Value Reference Range Interpretation Comments NA (test code = 141 mmol/L 135-145 7827196953) K (test code = 4.1 mmol/L 3.5-5 9736172269) CL (test code = 102 mmol/L 98-108 8988057919) CO2 TOTAL (test code = 21 mmol/L 23-31 L 9134179114) AGAP (test code = 2-16 H 9526202553) BUN (test code = 25 mg/dL 7-23 H 1666025260) GLUCOSE (test code = 160 mg/dL 70-110 H 6561611548) CREATININE (test code = 1.12 mg/dL 0.6-1.25 4125016914) TOTAL BILI (test code = 1.1 mg/dL 0.1-1.8 7775041486) CALCIUM (test code = 10.6 mg/dL 8.6-10.6 5018034465) T PROTEIN (test code = 9.4 g/dL 6.3-8.2 H 8147923308) ALBUMIN (test code = 5.1 g/dL 3.5-5 H 6778809164) ALK PHOS (test code = 108 U/L 34-122 2844525386) ALTv (test code = 121 U/L 5-50 H 1742-6) AST(SGOT) (test code = 99 U/L 13-40 H 5721937383) eGFR Calculation mL/min/1.73m2 (Non-) (test code = 8546618380) eGFR Calculation mL/min/1.73m2 () (test code = 7958141850) ЕЛЕНА (test code = ЕЛЕНА) Association of [...] tests). Lab Interpretation Abnormal (test code = 86230-7) [facility] Test Item Value Reference Range Interpretation Comments LIPASE (test code = [id number]) 66 U/L 0-220 Lab Interpretation (test code = Normal 84420-6) [facility] [facility]:51[facility]00 Test Item Value Reference Range Interpretation Comments MAGNESIUM (test code = 8325992969) 1.8 mg/dL 1.7-2.4 Lab Interpretation (test code = Normal 47516-4) [facility] WITH [id number] 01:38:00 Test Item Value Reference Range Interpretation Comments WBC (test code = See_Comment [Automated 0034-2) message] The sy stem which generated this result transmitted reference range : 4.20 - 10.70 10*3/?L. The reference range was not used to interpret this result as normal/abnormal . RBC (test code = See_Comment [Automated 512-8) message] The sy stem which generated this [...] RDW-SD (test code = 41.2 fL 38.5-51.6 69107-0) RDW-CV (test code = 13.2 % 12.1-15.4 788-0) PLT (test code = See_Comment H [Automated 777-3) message] The sy stem which generated this result transmitted reference range : 150 - 328 10*3/ ?L. The reference r cj was not used to interpret this result as normal/abnormal . MPV (test code = 9.5 fL 9.8-13 L 82433-6) NRBC/100 WBC (test See_Comment [Automat ed code = 8795112067) message] The system which generated this result transmitted reference range : 0.0 - 10.0 /100 WBCs. The refer ence range was not u sed to interpret th is result as normal/abnormal . NRBC x10^3 (test code <0.01 See_Comment [Auto mated = 1723695197) message] The s ystem which generated this result transmitted reference range : 10*3/?L. The reference range was not used to interpret this result as normal/abnormal . GRAN MAT (NEUT) % 46.0 % (test code = 770-8) IMM GRAN % (test code 3.50 % = 8370980472) LYMPH % (test code = 37.9 % 736-9) MONO % (test code = 9.5 % 5905-5) EOS % (test code = 2.3 % 713-8) BASO % (test code = 0.8 % 706-2) GRAN MAT x10^3(ANC) 3.38 10*3/uL 1.99-6.95 (test code = 0105483257) IMM GRAN x10^3 (test 0.26 10*3/uL 0-0.06 H code = 7666727492) LYMPH x10^3 (test code 2.79 10*3/uL 1.09-3.23 = 731-0) MONO x10^3 (test code 0.70 10*3/uL 0.36-1.02 = 742-7) EOS x10^3 (test code = 0.17 10*3/uL 0.06-0.53 711-2) BASO x10^3 (test code 0.06 10*3/uL 0.01-0.09 = 704-7) Lab Interpretation Abnormal (test code = 53798-0) [facility] 1 [id number] 01:31:03No acute cardiopulmonary disease RL: 6200 AFC: [id number] End of report ORDERING CLINICIAN: STEFANY GUERRERO [...] contour is normal.IMPRESSIONNo acute cardiopulmonary diseaseRL: 6200AFC: 61107Cla of report [facility] - INFLUENZA A & B DIRECT [id number] 01:15:00 Test Item Value Reference Range Interpretation Comments Influenza A (test code = 88241-7) Negative Negative Influenza B (test code = 99391-3) Negative Negative Lab Interpretation (test code = Normal 54067-5) [facility] Test Item Value Reference Range Interpretation Comments APPEARANCE (test code = Hazy Clear A 6202829356) COLOR (test code = Gricelda Yellow A 6287433096) PH (test code = 4.8-8.0 3675788830) SP GRAVITY (test code = 1.003-1.030 0630240890) GLU U QUAL (test code = Normal Normal 0795274272) BLOOD (test code = 2+ Negative A 9058903259) KETONES (test code = Negative Negative 4233711704) PROTEIN (test code = 500 mg/dL Negative A 2887-8) UROBILIN (test code = Normal Normal 9672745152) BILIRUBIN (test code = Negative Negative 8104148748) NITRITE (test code = Negative Negative 2490747958) LEUK BRIDGET (test code = Negative Negative 6773060985) RBC/HPF (test code = See_Comment H [Autom ated message] 7137359271) The system [employer] generated this result transmit odalys reference range : 0 - 3 HPF. The refe rence range was not u sed to interpret th is result as normal/abnormal . WBC/HPF (test code = See_Comment [Autom ated message] 9060471116) The system [employer] generated this result transmit odalys reference range : 0 - 5 HPF. The refe rence range was not u sed to interpret th is result as normal/abnormal . BACTERIA (test code = Few Negative A 7075195304) MUCOUS (test code = Slight Negative LPF A 1503411676) Lab Interpretation (test Abnormal code = 43109-3) [facility] (NA, K, CL, CO2, GLUCOSE, BUN, CREATININE, CA)2020-03-13 00:49:00 Test Item Value Reference Range Interpretation Comments NA (test code = 135 mmol/L 135-145 2154387593) K (test code = 4.0 mmol/L 3.5-5 8464354848) CL (test code = 97 mmol/L 98-108 L 6632597205) CO2 TOTAL (test code = 24 mmol/L 23-31 5383433139) AGAP (test code = 2-16 4676024431) BUN (test code = 21 mg/dL 7-23 8675953316) GLUCOSE (test code = 206 mg/dL 70-110 H 1018003793) CREATININE (test code = 1.12 mg/dL 0.6-1.25 5577136036) CALCIUM (test code = 9.8 mg/dL 8.6-10.6 7024370864) eGFR Calculation mL/min/1.73m2 (Non-) (test code = 0791182250) eGFR Calculation mL/min/1.73m2 () (test code = 5821403695) ЕЛЕНА (test code = ЕЛЕНА) Association of [...] tests). Lab Interpretation Abnormal (test code = 84292-2) [facility] (ID NOW RAPID TESTING)2020-03-13 00:49:00 Test Item Value Reference Range Interpretation Comments SARS-CoV-2 Rapid ID NOW Positive Not Detected A (test code = 31455-4) ЕЛЕНА (test code = ЕЛЕНА) ID NOW COVID-19 Assay is an isothermal nucleic acid amplification test intended for the qualitative detection of nucleic acid from SARS-CoV-2 viral RNA in nasopharyngeal (LEGAL ARBITRATOR) specimens. It is used under Emergency Use [...] indicated. Lab Interpretation Abnormal (test code = 77005-3) [facility] (ALB, T.PRO, BILI T, BU/BC, ALT, AST, ALK PHOS)2020-03-13 00:43:00 Test Item Value Reference Range Interpretation Comments TOTAL BILI (test code = 8870278102) 0.8 mg/dL 0.1-1.1 BILI UNCON (test code = 2667557770) 0.6 mg/dL 0.1-1.1 BILI CONJ (test code = 2728182816) 0.0 mg/dL 0-0.3 T PROTEIN (test code = 4914815030) 8.9 g/dL 6.3-8.2 H ALBUMIN (test code = 4887230394) 4.8 g/dL 3.5-5 ALK PHOS (test code = 3359453797) 82 U/L 34-122 ALTv (test code = 1742-6) 138 U/L 5-50 H AST(SGOT) (test code = 9831878704) 139 U/L 13-40 H Lab Interpretation (test code = Abnormal 83067-9) [facility] HospitalLipase [id number] 00:42:00 Test Item Value Reference Range Interpretation Comments LIPASE (test code = 5833804036) 46 U/L 0-220 Lab Interpretation (test code = Normal 17293-9) [facility] with [id number] 00:26:00 Test Item Value Reference Range Interpretation Comments WBC (test code = See_Comment [Automated 7423-2) message] The sy stem which generated this result transmitted reference range : 4.20 - 10.70 10*3/?L. The reference range was not used to interpret this result as normal/abnormal . RBC (test code = See_Comment [Automated 412-8) message] The sy stem which generated this [...] RDW-SD (test code = 42.4 fL 38.5-51.6 34485-1) RDW-CV (test code = 13.3 % 12.1-15.4 788-0) PLT (test code = See_Comment H [Automated 777-3) message] The sy stem which generated this result transmitted reference range : 150 - 328 10*3/ ?L. The reference r cj was not used to interpret this result as normal/abnormal . MPV (test code = 10.0 fL 9.8-13 23000-2) NRBC/100 WBC (test See_Comment [Automat ed code = 8446099234) message] The system which generated this result transmitted reference range : 0.0 - 10.0 /100 WBCs. The refer ence range was not u sed to interpret th is result as normal/abnormal . NRBC x10^3 (test code <0.01 See_Comment [Auto mated = 4743400831) message] The s ystem which generated this result transmitted reference range : 10*3/?L. The reference range was not used to interpret this result as normal/abnormal . GRAN MAT (NEUT) % 55.8 % (test code = 770-8) IMM GRAN % (test code 1.80 % = 8475448285) LYMPH % (test code = 33.1 % 736-9) MONO % (test code = 8.5 % 5905-5) EOS % (test code = 0.3 % 713-8) BASO % (test code = 0.5 % 706-2) GRAN MAT x10^3(ANC) 4.12 10*3/uL 1.99-6.95 (test code = 6898617684) IMM GRAN x10^3 (test 0.13 10*3/uL 0-0.06 H code = 0166959264) LYMPH x10^3 (test code 2.44 10*3/uL 1.09-3.23 = 731-0) MONO x10^3 (test code 0.63 10*3/uL 0.36-1.02 = 742-7) EOS x10^3 (test code = <0.03 0.06-0.53 L 711-2) BASO x10^3 (test code 0.04 10*3/uL 0.01-0.09 = 704-7) Lab Interpretation Abnormal (test code = 15309-2) [facility]
[2021-12-05] MEDS ORDERED: NA CHLORIDE 0.9% 1,000 ML ONE (08:54)
[2021-12-05] MEDS ORDERED: DIPHENHYDRAMINE 50 MG/ML VIAL ONE (08:54)
[2021-12-05] MEDS ORDERED: METHYLPREDNISOLONE 125 MG INJ ONE (08:54)
[2021-12-05] MEDS ORDERED: predniSONE 20 MG TAB ONE (08:54)
[2021-12-05] MEDS ORDERED: FAMOTIDINE 20 MG/2 ML VIAL IV ONE (08:54)
[2021-12-05 09:35] LABS: Absolute Lymphocytes (CBC) 2.2 K/uL (0.7-4.9); Lymphocytes % 46.8 % (15.3-44.8); MCV 86.7 fL (80-100); RBC Red Blood Cell Count 4.26 M/uL (4.33-5.43)
[2021-12-05 09:47] LABS: Potassium 3.3 mmol/L (3.5-5.1)
--- NOTE | 2021-12-05 10:11 | ER ---
Nurse's Notes [facility] Name: Dean Rosenthal Age: 51 yrs Sex: Male : 1970 Arrival Date: 12/05/2021 Time: 08:14 Bed 16 Private MD: Karina Coughlin Diagnosis: Essential (primary) hypertension;Urticaria, unspecified;Adverse effect of ablkvnarcoh-xrgtxmwtfn-fkqdpv inhibitors;Angioneurotic edema;Hypokalemia Presentation: 12/05 08:31 Chief complaint: Patient states: Facial swelling, throat swelling, dry mouth, and hives ph that started last night. Thinks it could be a reaction to medication, reports taking multiple medicines including lisinopril, recently started taking Tylenol 3 and diclofenac for chronic pain, recently completed course of steroids. Coronavirus screen: Vaccine status: Patient reports receiving the 2nd dose of the covid vaccine. Ebola Screen: No symptoms or risks identified at this time. Onset: The symptoms/episode began/occurred last night. Anaphylaxis evaluation, no signs or symptoms of anaphylaxis were noted. Initial Sepsis Screen: Does the patient meet any 2 criteria? No. Patient's initial sepsis screen is negative. Does the patient have a suspected source of infection? No. Patient's initial sepsis screen is negative. Risk Assessment: Do you want to hurt yourself or someone else? Patient reports no desire to harm self or others. Onset of symptoms was December 05, 2021. 08:31 Method Of Arrival: Ambulatory ph 08:31 Acuity: DIANNA 3 ph Triage Assessment: 08:41 General: Appears in no apparent distress. Behavior is calm, cooperative, appropriate ph for age. Pain: Complains of pain in "all over" has hx of chronic pain. Neuro: Level of Consciousness is awake, alert, obeys commands, Oriented to person, place, time, situation. Respiratory: Airway is patent Respiratory effort is even, unlabored. Derm: Skin is pink, warm \\T\\ dry. Rash noted that is raised, urticaria, on right foot, left foot, right arm and left arm. Musculoskeletal: Swelling present in face. Historical: - Allergies: 08:38 No Known Allergies; ph - PMHx: 08:38 Arthritis; Diabetes - NIDDM; GERD; High Cholesterol; Hypertension; ph - Immunization history:: Adult Immunizations up to date, Client reports receiving the 2nd dose of the Covid vaccine. - Social history:: Smoking status: Reported history of juuling and/or vaping. Screenin:39 Abuse screen: Denies threats or abuse. Denies injuries from another. Nutritional ph screening: No deficits noted. Tuberculosis screening: No symptoms or risk factors identified. Fall Risk None identified. Assessment: 11:14 Reassessment: Patient appears in no apparent distress at this time. No changes from db previously documented assessment. Patient and/or family updated on plan of care and expected duration. Pain level reassessed. Patient is alert, oriented x 3, equal unlabored respirations, skin warm/dry/pink. patient states has rash from possibly taking medication. Took Benadryl yesterday. States has pain in bilateral hands with swelling and bilateral hips. Pain: Complains of pain in bilateral hands and hips. Neuro: No deficits noted. Level of Consciousness is awake, alert, obeys commands, Oriented to person, place, time, situation, Appropriate for age. Cardiovascular: No deficits noted. Respiratory: No deficits noted. Airway is patent Breath sounds are clear. Vital Signs: 08:31 BP 115 / 69; Pulse 90; Resp 20; Temp 97.8; Pulse Ox 99% on R/A; Weight 120.2 kg; Height ph 5 ft. 11 in. (180.34 cm); 09:26 BP 112 / 87; Pulse 75; Resp 16; Pulse Ox 99% on R/A; db 08:31 Body Mass Index 36.96 (120.20 kg, 180.34 cm) ph ED Course: 08:14 Patient arrived in ED. am2 08:15 Karina Coughlin FNP-C is Private Physician. am2 08:21 Ruben Duarte MD is Attending Physician. og 08:23 Carrie Michael, SANA is Primary Nurse. db 08:38 Triage completed. ph 08:38 Arm band placed on Patient placed in an exam room, on a stretcher. ph 08:40 Patient has correct armband on for positive identification. Pulse ox on. NIBP on. ph 09:15 Missed attempt(s): 20 gauge forearm. antecubital area. Bleeding controlled, band aid db applied, catheter tip intact. 09:20 Inserted saline lock: 22 gauge in left forearm, using aseptic technique. db 11:33 No provider procedures requiring assistance completed. IV discontinued, intact, ss bleeding controlled, No redness/swelling at site. Pressure dressing applied. Administered Medications: 08:57 Drug: predniSONE 60 mg Route: PO; db 10:58 Follow up: Response: No adverse reaction db 09:25 Drug: NS 0.9% 1000 ml Route: IV; Rate: 1 bolus; Site: left forearm; db 11:34 Follow up: IV Status: Completed infusion; IV Intake: 1000ml ss 09:25 Drug: Benadryl (diphenhydrAMINE) 50 mg Route: IVP; Site: left forearm; db 10:59 Follow up: Response: No adverse reaction db 09:25 Drug: Pepcid (famotidine) 40 mg Route: IVP; Site: left forearm; db 10:59 Follow up: Response: No adverse reaction db 09:25 Drug: SOLU-Medrol (methylPrednisoLONE) 125 mg Route: IVP; Site: left forearm; db 10:59 Follow up: Response: No adverse reaction db 11:13 Drug: Potassium Effervescent Tablet 25 mEq Route: PO; db 11:34 Follow up: Response: No adverse reaction ss Medication: 08:40 VIS not applicable for this client. ph Intake: 11:34 IV: 1000ml; Total: 1000ml. ss Outcome: 10:11 Discharge ordered by . [facility] 11:33 Discharged to home ambulatory. ss 11:33 Condition: good 11:33 Discharge instructions given to patient, Instructed on discharge instructions, follow up and referral plans. medication usage, Demonstrated understanding of instructions, follow-up care, medications, Prescriptions given X x5 11:34 Patient left the ED. ss Signatures: Ruben Duarte MD MD cha Smirch, Shelby, RN RN Jessica Del Rio RN RN Brianna Aldridge Danielle, RN RN db Corrections: (The following items were deleted from the chart) 09:43 09:25 predniSONE 60 mg PO db db
--- NOTE | 2021-12-05 10:12 | EDPHYS ---
Physician Documentation [facility] Name: Dean Rosenthal Age: 51 yrs Sex: Male : 1970 Arrival Date: 12/05/2021 Time: 08:14 Bed 16 Private MD: Karina Coughlin ED Physician Ruben Duarte HPI: 12/05 09:22 This 51 yrs old Black Male presents to ER via Ambulatory with complaints of Allergic og Reaction, Hives. 09:22 The patient presents with itching, rash, swelling of the lips. Onset: The og symptoms/episode began/occurred last night. Associated signs and symptoms: Pertinent positives: hives, swelling. Possible causes: SULMA inhibitor, Lotensin. At home the patient or guardian has treated the symptoms with Benadryl. Severity of symptoms: At their worst the symptoms were mild in the emergency department the symptoms are unchanged. The patient has not experienced similar symptoms in the past. Historical: - Allergies: 08:38 No Known Allergies; ph - PMHx: 08:38 Arthritis; Diabetes - NIDDM; GERD; High Cholesterol; Hypertension; ph - Immunization history:: Adult Immunizations up to date, Client reports receiving the 2nd dose of the Covid vaccine. - Social history:: Smoking status: Reported history of juuling and/or vaping. ROS: 09:24 Constitutional: Negative for fever, chills, and weight loss, Eyes: Negative for injury, og pain, redness, and discharge, ENT: Negative for injury, pain, and discharge, Neck: Negative for injury, pain, and swelling, Cardiovascular: Negative for chest pain, palpitations, and edema, Respiratory: Negative for shortness of breath, cough, wheezing, and pleuritic chest pain, Abdomen/GI: Negative for abdominal pain, nausea, vomiting, diarrhea, and constipation, Back: Negative for injury and pain, : Negative for injury, bleeding, discharge, and swelling, MS/Extremity: Negative for injury and deformity, Neuro: Negative for headache, weakness, numbness, tingling, and seizure, Psych: Negative for depression, anxiety, suicide ideation, homicidal ideation, and hallucinations, Allergy/Immunology: Negative for hives, rash, and allergies, Endocrine: Negative for neck swelling, polydipsia, polyuria, polyphagia, and marked weight changes, Hematologic/Lymphatic: Negative for swollen nodes, abnormal bleeding, and unusual bruising. 09:24 Skin: Positive for rash, swelling, of the face, right hand and left hand. Exam: 09:24 Constitutional: This is a well developed, well nourished patient who is awake, alert, og and in no acute distress. Eyes: Pupils equal round and reactive to light, extra-ocular motions intact. Lids and lashes normal. Conjunctiva and sclera are non-icteric and not injected. Cornea within normal limits. Periorbital areas with no swelling, redness, or edema. ENT: Nares patent. No nasal discharge, no septal abnormalities noted. Tympanic membranes are normal and external auditory canals are clear. Oropharynx with no redness, swelling, or masses, exudates, or evidence of obstruction, uvula midline. Mucous membranes moist. Neck: Trachea midline, no thyromegaly or masses palpated, and no cervical lymphadenopathy. Supple, full range of motion without nuchal rigidity, or vertebral point tenderness. No Meningismus. Chest/axilla: Normal chest wall appearance and motion. Nontender with no deformity. No lesions are appreciated. Cardiovascular: Regular rate and rhythm with a normal S1 and S2. No gallops, murmurs, or rubs. Normal PMI, no JVD. No pulse deficits. Respiratory: Lungs have equal breath sounds bilaterally, clear to auscultation and percussion. No rales, rhonchi or wheezes noted. No increased work of breathing, no retractions or nasal flaring. Abdomen/GI: Soft, non-tender, with normal bowel sounds. No distension or tympany. No guarding or rebound. No evidence of tenderness throughout. Back: No spinal tenderness. No costovertebral tenderness. Full range of motion. Male : Normal genitalia with no discharge or lesions. Skin: Warm, dry with normal turgor. Normal color with no rashes, no lesions, and no evidence of cellulitis. MS/ Extremity: Pulses equal, no cyanosis. Neurovascular intact. Full, normal range of motion. Neuro: Awake and alert, GCS 15, oriented to person, place, time, and situation. Cranial nerves II-XII grossly intact. Motor strength 5/5 in all extremities. Sensory grossly intact. Cerebellar exam normal. Normal gait. Psych: Awake, alert, with orientation to person, place and time. Behavior, mood, and affect are within normal limits. 09:24 Head/face: Noted is swelling, that is mild, of the mouth. Vital Signs: 08:31 BP 115 / 69; Pulse 90; Resp 20; Temp 97.8; Pulse Ox 99% on R/A; Weight 120.2 kg; Height ph 5 ft. 11 in. (180.34 cm); 09:26 BP 112 / 87; Pulse 75; Resp 16; Pulse Ox 99% on R/A; db 08:31 Body Mass Index 36.96 (120.20 kg, 180.34 cm) ph MDM: 08:21 Patient medically screened. og 09:25 Differential diagnosis: anaphylaxis, angioedema, bronchospasm, urticaria. Data og reviewed: vital signs, nurses notes, lab test result(s), CBC, electrolytes. Data interpreted: lunchroom monitor: rate is 90 beats/min, rhythm is regular, Pulse oximetry: on room air is 99 %. Test interpretation: by ED physician or midlevel provider: plain radiologic studies. Counseling: I had a detailed discussion with the patient and/or guardian regarding: the historical points, exam findings, and any diagnostic results supporting the discharge/admit diagnosis, lab results, radiology results, the need for outpatient follow up, for definitive care, a family practitioner. Medication response: steroids, pepcid , benadryl , good responce. 12/05 08:24 Order name: CBC with Diff; Complete Time: 09:43 og 12/05 08:24 Order name: BMP; Complete Time: 10:10 og Administered Medications: 08:57 Drug: predniSONE 60 mg Route: PO; db 10:58 Follow up: Response: No adverse reaction db 09:25 Drug: NS 0.9% 1000 ml Route: IV; Rate: 1 bolus; Site: left forearm; db 11:34 Follow up: IV Status: Completed infusion; IV Intake: 1000ml ss 09:25 Drug: Benadryl (diphenhydrAMINE) 50 mg Route: IVP; Site: left forearm; db 10:59 Follow up: Response: No adverse reaction db 09:25 Drug: Pepcid (famotidine) 40 mg Route: IVP; Site: left forearm; db 10:59 Follow up: Response: No adverse reaction db 09:25 Drug: SOLU-Medrol (methylPrednisoLONE) 125 mg Route: IVP; Site: left forearm; db 10:59 Follow up: Response: No adverse reaction db 11:13 Drug: Potassium Effervescent Tablet 25 mEq Route: PO; db 11:34 Follow up: Response: No adverse reaction ss Disposition Summary: 12/05/21 10:11 Discharge Ordered Location: Home og Problem: new og Symptoms: have improved og Condition: Stable og Diagnosis - Essential (primary) hypertension og - Urticaria, unspecified og - Adverse effect of ogplpppjjdj-fvvfmbwjrc-eggavf inhibitors og - Angioneurotic edema og - Hypokalemia og Followup: og - With: Private Physician - When: 2 - 3 days - Reason: Recheck today's complaints, Continuance of care, Re-evaluation by your physician Discharge Instructions: - Discharge Summary Sheet og - Potassium Content of Foods og - Hives og - Hypertension, Adult og - Angioedema og - Hypertension, Adult, Pyrz-hr-Rybk og - Rash, Adult, Pyfx-mv-Glhi og - Angioedema, Ebmd-qg-Rmju og - How to Take Your Blood Pressure, Zlsz-nr-Pxrc og - Hives, Gvsb-sl-Wpyy og - Managing Your Hypertension og - Hypokalemia [facility] Forms: - Medication Reconciliation Form [facility] - Thank You Letter og - Antibiotic Education og - Prescription Opioid Use [facility] - Work release form am2 Prescriptions: - Benadryl 25 mg Oral Capsule - take 2 capsule by ORAL route every 6 hours As needed; 60 tablet; Refills: 0, [facility] Product Selection Permitted - EpiPen 0.3 mg/0.3 mL Injection auto-injector - inject 0.3 milliliter by INTRAMUSCULAR route as directed; 1 packet; Refills: 0, [facility] Product Selection Permitted - Pepcid 20 mg Oral Tablet - take 1 tablet by ORAL route every 12 hours for 21 days; 42 tablet; Refills: 0, [facility] Product Selection Permitted - Prednisone 20 mg Oral Tablet - take 2 tablets by ORAL route once daily for 5 days; 10 tablet; Refills: 0, [facility] Product Selection Permitted - Norvasc 5 mg Oral Tablet - take 1 tablet by ORAL route once daily; 20 tablet; Refills: 0, Product [facility] Selection Permitted Signatures: Dispatcher [employer] Ruben Langley MD MD cha Hall, Patricia RN RN ph Carrie Michael RN RN db Smirch, Jennifer RN ss
[2021-12-05] MEDS ORDERED: POTASSIUM 25 MEQ EFFERV TAB ONE (11:02)
[2021-12-05 11:43] VITALS: TEMP 97.8; O2SAT 99
[2021-12-05 11:48] VITALS: BP 112/87
== END 2021-12-05 11:34 | disposition home or self-care (01) ==
LOC: ER 08:13
DX: T78.3XXA Angioneurotic edema, initial encounter (principal); E87.6 Hypokalemia; T46.4X5A Adverse effect of angiotensin-converting-enzyme inhibitors, initial encounter; I10 Essential (primary) hypertension
CPT/HCPCS: 96361; 85025; 80048; 36415; 96375; 96374; 99284; J1200; J7512; J7030; J2930

== ENCOUNTER 2022-08-19 02:55 | Observation (INO) | payer BC ==
--- OUTSIDE RECORDS SUMMARY | 2022-08-19 03:04 | XMS REPORT | Continuity of Care Document ---
:1970 Author Organization [facility] t Address [address] [facility] [address] [place] [address] Care Team Providers Name Role Phone Mick Myles Primary Care Physician Matilde Rodney Attending Clinician Unavailable NUZHAT YADAV Attending Clinician Unavailable Junaid Medina MD Attending Clinician Doctor Unassigned, Ignacio Attending Clinician Unavailable Michelet Attending Clinician Unavailable Loraine WEST, Nuzhat Brito Attending Clinician Deisy Rangel MD Attending Clinician Ai WEST, Mark Paul Attending Clinician [phone] Radha Bradshaw Attending Clinician SAUL MCFARLAND Attending Clinician Unavailable Nurse, [facility] Attending Clinician Unavailable Saul Henriquez Attending Clinician Therapy, [facility] Covid Infusion Attending Clinician Unavailable Stefany Guerrero NP Attending Clinician STEFANY GUERRERO Attending Clinician Unavailable Debby Ambriz Attending Clinician NUZHAT YADAV NKIRU Admitting Clinician Unavailable Baum_L Admitting Clinician Unavailable STEFANY GUERRERO Admitting Clinician Unavailable Payers Payer Name Policy Type Policy Number Effective Date Expiration Date S ourevelyn [employer] [place] [id number] 2020 00:00:00 BCBS PPO POS [id number] 2020 EPO CHOICE 00:00:00 [employer] 6 [id number] 2020 Common Spiri t Blue Shield of 00:00:00 [facility] Problems Condition Condition Condition Status Onset Resolution Last Treating Co mments Source Name Details Category Date Date Treatment Clinician Date Cellulitis Cellulitis Disease Active C [facility] of of 08-14 [facility] perineum perineum 00:00: Medica l 00 Center Abdominal Abdominal Disease Active Uni vers pain pain 2-07 ity of 00:00: [address] Branch Obesity Obesity Disease Active Univers (BMI (BMI 2-06 ity of 30-39.9) 30-39.9) 00:00: [address] [id number] Mixed Problem Common hyperlipid Spirit emia - [facility] [id number] Essential Problem Comm on hypertensi Spirit on [facility] [id number] Type 2 Problem Common diabetes Spirit mellitus - [facility] with [facility] Center long-term current use of insulin [id number] Rheumatoid Problem Co mmon arthritis Spirit involving - [facility] multiple [facility] unspecifie Medica l d whether Center rheumatoid factor present [id number] Noncomplia Problem Comm on nce Spirit - [facility] [id number] Insomnia, Problem Com mon unspecifie Spirit d type - [facility] [id number] Cutaneous Problem Comm on abscess of Spirit buttock - [facility] [id number] Primary Problem Comm on osteoarthr Spirit itis of [facility] left hip [facility] [id number] Primary Problem Comm on osteoarthr Spirit itis of - [facility] right hip [facility] No known No known Disease Unive rs active active ity of problems problems [facility] Allergies, Adverse Reactions, Alerts Allergy Allergy Status Severity Reaction(s) Onset Inactive Treating Comm ents Source Name Type Date Date Clinician NO KNOWN Allergy Active [facility] NO KNOWN Drug Active [facility] Social History Social Habit Start Date Stop Date Quantity Comments Source History of Common Spirit - Tobacco Use [facility] Exposure to Yes University of SARS-CoV-2 [facility] (event) Branch Tobacco use and 2020-03-26 2020-03-26 Former smokeless Uni versity of exposure 00:00:00 00:00:00 tobacco user [facility] Sex Ass[birth year] At [birth year] [facility] 00:00:00 00:00:00 [facility] Center Smoking Status Start Date Stop Date Source Never Smoker Common Spirit - [facility] nter Ex-smoker 2020-03-26 00:00:00 2020-03-26 00:00:00 Universi ty [facility] Unknown if ever smoked [facility] Medications Ordered Filled Start Stop Current Ordering Indication Dosage Frequency Signature Comments Components Source Medication Medication Date Date Medication? Clinician (SIG) Name Name Cyclobenzap Cyclobenzap No 1{table QD Cyclobenza rine HCl 10 rine HCl 10 1-30 t_at_be reid HCl MG MG 00:00: dtime_a 10 MG 00 s_neede d} amLODIPine amLODIPine No 1{table QD amLODIPine Besylate 5 Besylate 5 1-30 t} Besylate 5 MG MG 00:00: MG 00 Diclofenac Diclofenac No 1{table BID Diclofenac Sodium 75 Sodium 75 1-30 t_as_ne Sodium 75 MG MG 00:00: eded} MG 00 Pregabalin Pregabalin No 1{capsu BID Pregabalin 75 MG 75 MG 1-30 le} 75 MG 00:00: 00 Zoloft 100 Zoloft 100 No Zoloft 100 mg mg 1-30 mg 00:00: 00 Tylenol Tylenol No Tylenol (#4) with (#4) with 1-30 (#4) with codeine codeine 00:00: codeine 60/300 60/300 00 60/300 Jardiance Jardiance 2022-0 No 1{table QD Jardiance 25 MG 25 MG 1-30 t} 25 MG 00:00: 00 Toujeo Toujeo 2022-0 No QD Toujeo SoloStar SoloStar 30 SoloStar 300u/ml 300u/ml 00:00: 300u/ml 00 Methocarbam Methocarbam 2022-0 No Methocarba ol 500 MG ol 500 MG 03-18 mol 500 MG 00:00: 00 BuSpar BuSpar 2022-0 No BuSpar 03-18 00:00: 00 Ozempic Ozempic 0 No Ozempic 30 00:00: 00 Fenofibrate Fenofibrate 2022-0 No 1{table QD Fenofibrat 145 MG 145 MG -30 t} e 145 MG 00:00: 00 metFORMIN Yes 1000mg Take 1,[address] [...] times daily with breakfast and dinner. lisinopriL 2021-0 Yes 10mg QD Take [address] (PRINIVIL,Z 7-02 by mouth Luke s ESTRIL) 10 11:59: daily. Medic al MG tablet 38 Center atorvastati 0 Yes 40mg QD Take [address] [facility] (LIPITOR) 7-02 by mouth Luke s 40 MG 11:59: daily Medical tablet 38 lunchtime Center . pantoprazol 2020-0 Yes 40mg QD Take [address] [facility] 7-02 by mouth [facility] (PROTONIX) 11:59: daily. Medic al 40 MG 38 Center tablet multivitami 0 Yes 1{tbl} QD Take [address] [facility] per 7-02 tablet by [facility] tablet 11:59: mouth Medical 38 daily. Center metFORMIN 2020-0 Yes 1000mg Take 1,[address] (GLUCOPHAGE 7-02 mg by [facility] ) 1000 MG 11:59: mouth 2 Medic al tablet 38 (two) Center times daily with breakfast and dinner. lisinopriL 2020-0 Yes 10mg QD Take [address] (PRINIVIL,Z 7-02 by mouth Luke s ESTRIL) 10 11:59: daily. Medic al MG tablet 38 [place] atorvastati 0 Yes 40mg QD Take [address] n (LIPITOR) 7-02 by mouth Luke s 40 MG 11:59: daily Medical tablet 38 lunchtime Center . pantoprazol 2020-0 Yes 40mg QD Take [address] e 7-02 by mouth [facility] (PROTONIX) 11:59: daily. Medic al 40 MG 38 Center tablet multivitami 0 Yes 1{tbl} QD Take [address] n per 7-02 tablet by [facility] tablet 11:59: mouth Medical 38 daily. Center metFORMIN 2020-0 Yes 1000mg Take 1,[address] (GLUCOPHAGE 7-02 mg by [facility] ) 1000 MG 11:59: mouth 2 Medic al tablet 38 (two) Center times daily with breakfast and dinner. lisinopriL 2020-0 Yes 10mg QD Take [address] (PRINIVIL,Z 7-02 by mouth Luke s ESTRIL) 10 11:59: daily. Medic al MG tablet 38 Center atorvastati 0 Yes 40mg QD Take 40 mg [...] Yes Use as [facility] diabetic 31 7- directed. Suha es gauge x 00:00: Medical 07/02" Nd 00 Center bisacodyL Yes 5mg Take 1 [...] gauge x 00:00: Medical 07/02" Nd 00 Center bisacodyL Yes 5mg Take 1 [...] HI St -clavulanat 08-18 tablet by Andrea kes e 00:00: 23:59 mouth 2 Medical (AUGMENTIN) [...] HI St -clavulanat 08-18- tablet by Andrea kes e 00:00: 23:59 mouth 2 Medical (AUGMENTIN) 00 :00 (two) Center 875-125 mg times per tablet daily for 7 days. doxycycline 2020- No 100mg Q.5D Take [address] (MONODOX) 08-18- capsule [facility] 100 MG 00:00: 23:59 (100 mg Medical capsule 00 :00 total) by Center mouth 2 (two) times daily for 7 days. Ibuprofen Ibuprofen 2021-0 2021- No TID Ibuprofen 800 MG 800 MG 08-07 800 MG 00:00: 00:00 00 :00 Ibuprofen Ibuprofen 2020-2020- No TID Ibuprofen Common 800 MG 800 MG 08-07 800 MG Spirit 00:00: 00:00 - [facility] 00 :00 [facility] Cleocin 300 Cleocin 300 202- No 2{capsu TID Cleocin MG MG 08-07 les} 300 MG 00:00: 00:00 00 :00 saw Yes Take by Univers palmetto 2-08 mouth. ity of xtr/zinc 16:23: [place] picolin 50 Medical (SAW Branch PALMETTO EXTRACT ORAL) APPLE CIDER Yes Take by Uni vers VINEGAR 2-08 mouth. ity of ORAL 16:23: [address] Branch multivit, Yes Take by Uni vers x,calcium,i 2-08 mouth. ity of dougie osorio 16:23: [place] (MULTIVITAM 50 Medical IN AND Branch MINERAL ORAL) [facility] Yes Take by Univers palmetto 2-08 mouth. ity of xtr/zinc 16:23: [place] picolin Medical (SAW Branch PALMETTO EXTRACT ORAL) AP[place] CIDER Yes Take by Uni vers VINEGAR 2-08 mouth. ity of ORAL 16:23: [address] multivit, Yes Take by Uni vers x,calcium,i 2-08 mouth. ity of jomins 16:23: [place] (MULTIVITAM 50 Medical IN AND Branch MINERAL ORAL) ondansetron Yes [id number] 4mg Take 1 Univers (ZOFRAN 2-08 tablet by ity of ODT) 4 mg 00:00: mouth [place] disintegrat 00 every 8 Medic al ing tablet (eight) Branch hours as needed for Nausea and Vomiting (N/V). ondansetron Yes [id number] 4mg Take 1 Univers (ZOFRAN 2-08 tablet by ity of ODT) 4 mg 00:00: mouth [place] disintegrat 00 every 8 Medic al ing tablet (eight) Branch hours as needed for Nausea and Vomiting (N/V). proMETHazin 2020- No 12.5mg 12.5 mg, Univers e 03-19 IV ity of (PHENERGAN) 07:15: 07:15 Piggyback, [place] 12.5 mg in 00 :00 ONCE, 1 Medica l NaCl 0.9% dose, [place] Branc h (NS) 50 mL 03/19/20 at piggyback 0115, 50 mL NaCl 0.9% 0 202- No 1000mL at 999 Uni vers (NS) bolus 03-19 mL/hr, ity of infusion 03:45: 05:00 1,000 mL, [place] as 1,000 mL 00 :00 IV Medical Infusion, Branch ONCE, 1 dose, 03/18/20 at 2145, STAT proMETHazin 2020- No 12.5mg 12.5 mg, [facility] e 03-19 IV ity of (PHENERGAN) 03:00: 03:00 Piggyback, [place] 12.5 mg in 00 :00 ONCE, 1 Medica l NaCl 0.9% dose, Sat Branc h (NS) 50 mL 03/18/20 at piggyback 2100, 50 mL NaCl 0.9% 0 2020- No 500mL at 999 Univ ers (NS) bolus 03-19 mL/hr, 500 it y of infusion 02:15: 02:30 mL, IV [place] 500 mL 00 :00 Infusion, Medical ONCE, 1 Branch dose, 03/18/20 at 2015, STAT ondansetron 2020-0 2020- No 4mg 4 mg, Slow Univers (ZOFRAN 03-19 IV Push, ity of (PF)) 02:15: 01:31 ONCE, 1 [place] injection 4 00 :00 dose, Sat Med ical mg 03/18/20 at Branch 2015, KACY proMETHazin 2020-0 Yes [id number] 25mg Insert 1 [facility] e 03-19 Suppositor ity of (PHENERGAN) 00:00: y [place] 25 mg 00 rectum Medical suppository every 4 Branc h (four) hours as needed for Nausea and Vomiting (N/V). proMETHazin 2020-0 Yes [id number] 25mg Insert 1 [facility] e 03-19 Suppositor ity of (PHENERGAN) 00:00: y [place] 25 mg 00 rectum Medical suppository every 4 Branc h (four) hours as needed for Nausea and Vomiting (N/V). proMETHazin Yes [id number] 25mg Insert 1 Univers e 03-19 Suppositor ity of (PHENERGAN) 00:00: y [place] 25 mg 00 rectum Medical suppository every 4 Branc h (four) hours as needed for Nausea and Vomiting (N/V). bamlanivima No 700mg 700 mg, IV Univers b (EUA) 700 03-15 Infusion, it y of mg in NaCl 16:45: 17:30 ONCE, Wed [place] 0.9% (NS) 00 :03/15/20 at Medi thelma 270 mL 1045, For Branch infusion 1 dose
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
member of the legislative council approving Restricted medication : CESAR, STEFANY G NaCl 0.9% 2020- No 1000mL at 999 Uni vers (NS) bolus 03-13- mL/hr, ity of infusion 00:15: 02:45 1,000 mL, [place] as 1,000 mL 00 :00 IV Medical Infusion, [place] ONCE, 1 dose, [place] 03/12/20 at 1815, KACY ondansetron Yes [id number] 4mg Take 1 Univers (ZOFRAN 1-24 tablet by ity of ODT) 4 mg 00:00: mouth [place] disintegrat 00 every 8 Medic al ing tablet (eight) Branch hours as needed for Nausea and Vomiting (N/V). ibuprofen Yes [id number] 800mg Take 1 Univers 800 mg 1-24 tablet by ity of tablet 00:00: mouth [place] 00 every 6 Medical (six) Branch hours as needed for Pain (scale 1-3) or Temp > 38.5 C. ondansetron Yes [id number] 4mg Take 1 Univers (ZOFRAN 1-24 tablet by ity of ODT) 4 mg 00:00: mouth [place] disintegrat 00 every 8 Medic al ing tablet (eight) Branch hours as needed for Nausea and Vomiting (N/V). ibuprofen Yes [id number] 800mg Take 1 Univers 800 mg 1-24 tablet by ity of tablet 00:00: mouth [place] 00 every 6 Medical (six) Branch hours as needed for Pain (scale 1-3) or Temp > 38.5 C. ondansetron Yes [id number] 4mg Take 1 Univers (ZOFRAN 1-24 tablet by ity of ODT) 4 mg 00:00: mouth [place] disintegrat 00 every 8 Medic al ing tablet (eight) Branch hours as needed for Nausea and Vomiting (N/V). ibuprofen Yes [id number] 800mg Take 1 Univers 800 mg 1-24 tablet by ity of tablet 00:00: mouth [place] 00 every 6 Medical (six) Branch hours as needed for Pain (scale 1-3) or Temp > 38.5 C. ondansetron Yes [id number] 4mg Take 1 Univers (ZOFRAN 1-24 tablet by ity of ODT) 4 mg 00:00: mouth [place] disintegrat 00 every 8 Medic al ing tablet (eight) Branch hours as needed for Nausea and Vomiting (N/V). ibuprofen Yes [id number] 800mg Take 1 Univers 800 mg 1-24 tablet by ity of tablet 00:00: mouth [place] 00 every 6 Medical (six) Branch hours as needed for Pain (scale 1-3) or Temp > 38.5 C. ondansetron Yes [id number] 4mg Take 1 Univers (ZOFRAN 1-24 tablet by ity of ODT) 4 mg 00:00: mouth [place] disintegrat 00 every 8 Medic al ing tablet (eight) Branch hours as needed for Nausea and Vomiting (N/V). ibuprofen Yes [id number] 800mg Take 1 Univers 800 mg 1-24 tablet by ity of tablet 00:00: mouth [place] 00 every 6 Medical (six) Branch hours as needed for Pain (scale 1-3) or Temp > 38.5 C. ondansetron 0 Yes [id number] 4mg Take 1 Univers (ZOFRAN 1-24 tablet by ity of ODT) 4 mg 00:00: mouth [place] disintegrat 00 every 8 Medic al ing tablet (eight) Branch hours as needed for Nausea and Vomiting (N/V). ibuprofen 0 Yes [id number] 800mg Take 1 Univers 800 mg 1-24 [...] 1-04 TABLET BY ity of tablet 00:00: [facility] EVERY DAY Medical Branch lisinopriL 0 Yes TAKE 1 Unive rs 10 mg 1-04 TABLET BY ity of tablet 00:00: [facility] EVERY DAY Medical Branch lisinopriL 0 Yes TAKE 1 Unive rs 10 mg 1-04 TABLET BY ity of tablet 00:00: MOUTH EVERY DAY Medical Branch lisinopriL 0 Yes TAKE 1 Unive rs 10 mg 1-04 TABLET BY ity of tablet 00:00: [facility] EVERY DAY Medical Branch lisinopriL 2020-0 Yes TAKE 1 Unive rs 10 mg 1-04 TABLET BY ity of tablet 00:00: [facility] EVERY DAY Medical Branch lisinopriL 0 Yes TAKE 1 Unive rs 10 mg 1-04 TABLET BY ity of tablet 00:00: [facility] EVERY DAY Medical Branch atorvastati 2019- Yes 40mg Take 40 mg Univers n 40 mg 2-18 by mouth. ity of tablet 00:00: [place] [facility] atorvastati 2019-02 Yes 40mg Take 40 mg Univers n 40 mg 2-18 by mouth. ity of tablet 00:00: Medical Branch atorvastati 2019-02 Yes 40mg Take 40 mg Univers n 40 mg 2-18 by mouth. ity of tablet 00:00: Medical Branch atorvastati 2019- Yes 40mg Take 40 mg Univers n 40 mg 2-18 by mouth. ity of tablet 00:00: Medical Branch atorvastati 2020- Yes 40mg Take 40 mg Univers n 40 mg 2-18 by mouth. ity of tablet 00:00: [place] [facility] atorvastati 2020- Yes 40mg Take 40 mg Univers n 40 mg 2-18 by mouth. ity of tablet 00:00: [place] [facility] atorvastati 2020- Yes 40mg Take 40 mg Univers n 40 mg 2-18 by mouth. ity of tablet 00:00: [place] [facility] atorvastati 2019- Yes 40mg Take 40 mg Univers n 40 mg 2-18 by mouth. ity of tablet 00:00: [place] [facility] metFORMIN 2020-1 Yes TAKE 2 Univer s 500 mg 2-17 TABLETS BY ity of tablet 00:00: [facility] EVERY Medical MORNING Branch AND EVERY EVENING metFORMIN 2020-1 Yes TAKE 2 Univer s 500 mg 2-17 TABLETS BY ity of tablet 00:00: [facility] EVERY Medical MORNING Branch AND EVERY EVENING metFORMIN 2020-1 Yes TAKE 2 Univer s 500 mg 2-17 TABLETS BY ity of tablet 00:00: [facility] EVERY Medical MORNING Branch AND EVERY EVENING metFORMIN 2020-1 Yes TAKE 2 Univer s 500 mg 2-17 TABLETS BY ity of tablet 00:00: MOUTH [place] EVERY Medical MORNING Branch AND EVERY EVENING metFORMIN 2020-1 Yes TAKE 2 Univer s 500 mg 2-17 TABLETS BY ity of tablet 00:00: MOUTH [place] EVERY Medical MORNING Branch AND EVERY EVENING metFORMIN 2020-1 Yes TAKE 2 Univer s 500 mg 2-17 TABLETS BY ity of tablet 00:00: [facility] EVERY Medical MORNING Branch AND EVERY EVENING metFORMIN 2020-1 Yes TAKE 2 Univer s 500 mg 2-17 TABLETS BY ity of tablet 00:00: [facility] EVERY Medical MORNING Branch AND EVERY EVENING metFORMIN 2020-1 Yes TAKE 2 Univer s 500 mg 2-17 TABLETS BY ity of tablet 00:00: [facility] EVERY Medical MORNING Branch AND EVERY EVENING semaglutide 2020- Yes 1{tbl} Take 1 Un [place] (RYBELSUS) 1-30 tablet by ity of 3 mg Tab 00:00: mouth. [place] [facility] semaglutide 2020-1 Yes 1{tbl} Take 1 Un [place] (RYBELSUS) 1-30 tablet by ity of 3 mg Tab 00:00: mouth. [place] [facility] semaglutide 2019-02 Yes 1{tbl} Take 1 Un [place] (RYBELSUS) 1-30 tablet by ity of 3 mg Tab 00:00: mouth. [place] [facility] semaglutide 2019-02 Yes 1{tbl} Take 1 Un [place] (RYBELSUS) 1-30 tablet by ity of 3 mg Tab 00:00: mouth. [place] [facility] semaglutide 2019-02 Yes 1{tbl} Take 1 Un [place] (RYBELSUS) 1-30 tablet by ity of 3 mg Tab 00:00: mouth. [place] [facility] semaglutide 2019-02 Yes 1{tbl} Take 1 Un [place] (RYBELSUS) 1-30 tablet by ity of 3 mg Tab 00:00: mouth. [place] [facility] semaglutide 2019-02 Yes 1{tbl} Take 1 Un [place] (RYBELSUS) 1-30 tablet by ity of 3 mg Tab 00:00: mouth. [place] [facility] semaglutide 2019-02 Yes 1{tbl} Take 1 Un [place] (RYBELSUS) 1-30 tablet by ity of 3 mg Tab 00:00: mouth. [address] Celecoxib Celecoxib No 1{capsu BID Celecoxib 200 MG 200 MG le_with 200 MG _food} Lisinopril Lisinopril No 1{table QD Lisinopril Common 10 MG 10 MG t} 10 MG Spirit [facility] Celecoxib Celecoxib No 1{capsu BID Celecoxib Common 200 MG 200 MG le_with 200 MG Spirit _food} [facility] Belsomra 15 Belsomra 15 No 1{table QD Belsomra Common MG MG t_at_be 15 MG Spirit dtime_a - [facility] metFORMIN metFORMIN No 1{table QID metFORMIN Common HCl 500 MG HCl 500 MG t_with_ HCl 500 MG Spirit a_meal} [facility] Atorvastati Atorvastati No 1{table QD Atorvastat Common n Calcium n Calcium t} in Calcium Spirit 40 MG 40 MG 40 MG - [facility] Pantoprazol Pantoprazol No 1{table QD Pantoprazo Common e Sodium 40 e Sodium 40 t} le Sodium Spirit MG MG 40 MG - [facility] metFORMIN metFORMIN No 1{table QID metFORMIN HCl 500 MG HCl 500 MG t_with_ HCl 500 MG a_meal} Pantoprazol Pantoprazol No 1{table QD Pantoprazo e Sodium 40 e Sodium 40 t} le Sodium MG MG 40 MG Belsomra 15 Belsomra 15 No 1{table QD Belsomra MG MG t_at_be 15 MG dtime_a s_neede d} Atorvastati Atorvastati No 1{table QD Atorvastat n Calcium n Calcium t} in Calcium 40 MG 40 MG 40 MG traMADol traMADol No 1{table QID traMADol HCl 50 MG HCl 50 MG t_as_ne HCl 50 MG eded} Lisinopril Lisinopril No 1{table QD Lisinopril 10 MG 10 MG t} 10 MG Atorvastati Atorvastati No 1{table QD Atorvastat n [...] MG t_at_be 15 MG dtime_a s_neede d} Vital Signs Vital Name Observation Time Observation Value Comments Source HEIGHT 2020-08-14 04:00:00 180.3 cm WEIGHT 2020-08-14 04:00:00 124.739 kg height 2022-03-18 09:00:00 71.00 [in_i] [facility] weight 2022-03-18 09:00:00 250 [lb_av] [facility] temperature 2022-03-18 09:00:00 97.2 [degF] [facility] bmi 2022-03-18 09:00:00 34.86 kg/m2 [facility] blood pressure 2022-03-18 09:00:00 131 mm[Hg] Common [facility] - systolic [facility] blood pressure 2022-03-18 09:00:00 80 mm[Hg] Common [facility] - diastolic [facility] HEIGHT 2020-08-14 04:00:00 180.3 cm WEIGHT 2020-08-14 04:00:00 124.739 kg height 2020-08-04 10:00:00 71.00 [in_i] [facility] weight 2020-08-04 10:00:00 283.4 [lb_av] [facility] temperature 2020-08-04 10:00:00 95.2 [degF] [facility] bmi 2020-08-04 10:00:00 39.52 kg/m2 [facility] oximetry 2020-08-04 10:00:00 97 % [facility] respiratory rate 2020-08-04 10:00:00 16 /min Comm on [facility] blood pressure 2020-08-04 10:00:00 131 mm[Hg] Common [facility] - systolic [facility] blood pressure 2020-08-04 10:00:00 80 mm[Hg] Common [facility] - diastolic [facility] Systolic blood 2020-03-19 06:42:06 137 mm[Hg] Univer sity of [facility] Diastolic blood 2020-03-19 06:42:06 92 mm[Hg] Unive rsity [facility] Heart rate 2020-03-19 06:42:06 90 /min [facility] Respiratory rate 2020-03-19 06:42:06 17 /min Univ [facility] Oxygen saturation in 2020-03-19 06:42:06 97 /min [facility] Arterial blood by [facility] Pulse oximetry Branch Body temperature 2020-03-19 00:47:00 37.22 Nafisa [facility] Body weight 2020-03-19 00:47:00 122.471 kg [facility] Systolic blood 2020-03-19 00:15:00 126 mm[Hg] Univer sity of pressure [place] [facility] Diastolic blood 2020-03-19 00:15:00 84 mm[Hg] Unive rsity of pressure [place] [facility] Heart rate 2020-03-19 00:15:00 102 /min Universi ty of [place] [facility] Body temperature 2020-03-19 00:15:00 36.83 Nafisa Univ ersity of [place] [facility] Respiratory rate 2020-03-19 00:15:00 20 /min Univ ersity of [place] [facility] Oxygen saturation in 2020-03-19 00:15:00 95 /min University of Arterial blood by [place] [facility]i thelma Pulse oximetry Branch Systolic blood 2020-03-15 17:31:00 144 mm[Hg] Univer sity of pressure [place] [facility] Diastolic blood 2020-03-15 17:31:00 88 mm[Hg] Unive rsity of pressure [place] [facility] Heart rate 2020-03-15 17:31:00 86 /min Universi ty of [place] [facility] Body temperature 2020-03-15 17:31:00 36.94 Nafisa Univ ersity of [place] [facility] Respiratory rate 2020-03-15 17:31:00 18 /min Univ ersity of [place] [facility] Oxygen saturation in 2020-03-15 17:31:00 95 /min University of Arterial blood by [facility] Pulse oximetry Branch Body weight 2020-03-15 15:55:00 122.471 kg Universi ty of [place] [facility] Systolic blood 2020-03-15 17:31:00 144 mm[Hg] Univer sity of pressure [place] [facility] Diastolic blood 2020-03-15 17:31:00 88 mm[Hg] Unive rsity of pressure [place] [facility] Heart rate 2020-03-15 17:31:00 86 /min Universi ty of [place] [facility] Body temperature 2020-03-15 17:31:00 36.94 Nafisa Univ ersity of [place] [facility] Respiratory rate 2020-03-15 17:31:00 18 /min Univ ersity of [place] [facility] Oxygen saturation in 2020-03-15 17:31:00 95 /min University of Arterial blood by [facility] thelma Pulse oximetry Branch Body weight 2020-03-15 15:55:00 122.471 kg [facility] Heart rate 2020-03-13 02:30:00 87 /min [facility] Respiratory rate 2020-03-13 02:30:00 25 /min [facility] Oxygen saturation in 2020-03-13 02:30:00 92 /min University Arterial blood by [facility] Pulse oximetry Branch Systolic blood 2020-03-13 02:00:00 107 mm[Hg] Univer sity of [facility] Diastolic blood 2020-03-13 02:00:00 60 mm[facility]Hg] [facility] 2020-03-12 23:41:00 38.17 Nafisa [facility] Body weight 2020-03-12 23:41:00 126.1 kg [facility] Systolic blood 2020-08-18 08:00:00 131 mm[Hg] [facility] Diastolic blood 2020-08-18 08:00:00 78 mm[Hg] [facility] Heart rate 2020-08-18 08:00:00 67 /min [facility] Body temperature 2020-08-18 08:00:00 36.28 Nafisa [facility] Respiratory rate 2020-08-18 08:00:00 18 /min [facility] Oxygen saturation in 2020-08-18 08:00:00 95 /min [facility] Arterial blood by Medical nter Pulse oximetry Body height 2020-08-14 04:00:00 180.3 cm [facility] Body weight 2020-08-14 04:00:00 124.739 kg [facility] BMI 2020-08-14 04:00:00 38.35 kg/m2 [facility] Procedures Procedure Date / Time Performing Clinician Source Performed REFERRAL- 2022-02-07 06:01:00 Doctor Unassigned, No [facility] REQUEST/RESPONSE Name Medical Branch HEPATITIS C ANTIBODY 2021-08-27 04:29:00 [facility] POCT-GLUCOSE METER 2020-08-18 07:49:00 Mark Cloud [facility] BASIC METABOLIC PANEL 2020-08-18 05:24:00 Aurea [facility] (7) [facility] CBC W/PLT COUNT & AUTO 2020-08-18 05:20:00 [facility] DIFFERENTIAL [facility] (MANUAL DIFFERENTIAL) 2020-08-18 05:20:00 [facility] CBC W/PLT COUNT & AUTO 2020-08-18 05:20:00 [facility] DIFFERENTIAL [facility] POCT-GLUCOSE METER 2020-08-17 20:14:00 [facility] POCT-GLUCOSE METER 2020-08-17 16:32:00 [facility] POCT-GLUCOSE METER 2020-08-17 11:05:00 [facility] CBC W/PLT COUNT & AUTO 2020-08-17 08:09:00 [facility] DIFFERENTIAL [facility] (MANUAL DIFFERENTIAL) 2020-08-17 08:09:00 [facility] MAGNESIUM 2020-08-17 08:09:00 [facility] BASIC METABOLIC PANEL 2020-08-17 08:09:00 [facility] (7) [facility] CBC W/PLT COUNT & AUTO 2020-08-17 08:09:00 Ai [facility] DIFFERENTIAL [facility] VANCOMYCIN LEVEL, 2020-08-17 05:27:00 Deisy Rangel [facility] POCT-GLUCOSE METER 2020-08-16 21:08:00 Aurea [facility] POCT-GLUCOSE METER 2020-08-16 17:01:00 [facility], [facility] POCT-GLUCOSE METER 2020-08-16 11:49:00 Shieh, [facility] POCT-GLUCOSE METER 2020-08-16 08:34:00 AureaMark christine [facility] Center CBC W/PLT COUNT & AUTO 2020-08-16 04:52:00 [facility] DIFFERENTIAL Center BASIC METABOLIC PANEL 2020-08-16 04:52:00 [facility] (7) Center CBC W/PLT COUNT & AUTO 2020-08-16 04:52:00 [facility] DIFFERENTIAL Center POCT-GLUCOSE METER 2020-08-15 21:29:00 [facility] VANCOMYCIN LEVEL, 2020-08-15 20:14:00 Micha Sanchez [facility] Center POCT-GLUCOSE METER 2020-08-15 16:54:00 Rangel [facility] POCT-GLUCOSE METER 2020-08-15 11:07:00 [facility] POCT-GLUCOSE METER 2020-08-15 07:22:00 Juan Carlos [facility] CBC W/PLT COUNT & AUTO 2020-08-15 04:15:00 [facility] DIFFERENTIAL Center BASIC METABOLIC PANEL 2020-08-15 04:15:00 [facility] (7) Center CBC W/PLT COUNT & AUTO 2020-08-15 04:15:00 Montezsamyalvarez [facility] Center POCT-GLUCOSE METER 2020-08-14 20:59:00 Juan Carlos [facility] CT ABDOMEN/PELVIS WITH 2020-08-14 18:18:00 Rhiannon [facility] IV CONTRAST Center SARS-COV2/RT-PCR ([facility] 2020-08-14 17:12:00 Darrian Jurado [facility] REF LABS) Center POCT-GLUCOSE METER 2020-08-14 16:42:00 Juan Carlos [facility] POCT-GLUCOSE METER 2020-08-14 11:10:00 Rangel, Deisy [facility] US TESTICULAR (SCROTUM) 2020-08-14 08:55:00 Loraine [facility] POCT-GLUCOSE METER 2020-08-14 07:22:00 [facility] 2020-08-14 07:01:00 Dottie [facility] URINALYSIS W/ REFLEX 2020-08-14 07:01:00 Loraine [facility] Edil Bhavin [facility] URINE CULTURE Center BLOOD CULTURE 2020-08-14 06:56:00 [facility] CBC W/PLT COUNT & AUTO 2020-08-14 05:47:00 Dottie [facility] DIFFERENTIAL Center BASIC METABOLIC PANEL 2020-08-14 05:47:00 [facility] (7[facility] Center HEMOGLOBIN A1C 2020-08-14 05:47:00 [facility] PROTHROMBIN TIME/INR 2020-08-14 05:47:00 [facility] 2020-08-14 05:47:[facility] 2020-08-14 05:47:00 [facility] CBC W/PLT COUNT & AUTO 2020-08-14 05:47:00 Dottie [facility] Center POCT-GLUCOSE METER 2020-08-14 04:10:00 [facility] BASIC METABOLIC PANEL 2020-03-19 05:19:00 Radha Oliveira [facility] (NA, K, CL, CO2, Medical Branch GLUCOSE, BUN, CREATININE, CA) AC VBG + LACTIC ACID 2020-03-19 03:24:00 Radha Oliveira [facility] Branch URINALYSIS 2020-03-19 02:34:00 Radha Oliveira [facility] LIPASE 2020-03-19 01:30:00 Radha Oliveira Tammy [place] o [facility] MAGNESIUM 2020-03-19 01:30:00 Radha Oliveira Tammy [facility] COMP. METABOLIC PANEL 2020-03-19 01:30:00 Radha Oliveira [facility] ([id number]) Medical Branch CBC WITH DIFF 2020-03-19 01:29:00 Radha Oliveira Tammy [facility] CONSENT/REFUSAL FOR 2020-03-19 00:39:12 Doctor Unassigned, [facility] [id number] CONSENT 2020-03-15 06:01:00 Doctor Unassigned, No [facility] XR CHEST 1 VW 2020-03-13 00:48:13 Stefany Guerrero [facility] LIPASE 2020-03-13 00:11:00 Stefany Guerrero [facility] HEPATIC FUNCTION PANEL 2020-03-13 00:11:00 Stefany Guerrero [facility] ([id number]) (ALB[facility] T,BU/BC,ALT,AST,ALK PHOS) BASIC METABOLIC PANEL 2020-03-13 00:11:00 Stefany Guerrero [facility] (NA, K, CL, CO2, Medical Branch GLUCOSE, BUN, CREATININE, CA) CBC WITH DIFF 2020-03-13 00:11:00 Stefany Guerrero [facility] URINALYSIS 2020-03-13 00:11:00 Stefany Guerrero [facility] ADC,CLC OR LCC ONLY - 2020-03-13 00:11:00 Stefany Guerrero [facility] INFLUENZA A & B DIRECT Medical B ranch ANTIGEN COVID-19 (ID NOW RAPID 2020-03-13 00:11:00 Stefany Guerrero [facility] TESTING) Medical Branch NOTICE OF PRIVACY 2020-03-12 23:39:50 Doctor Unassigned, No [facility] PRACTICES Name Medical [place] CONSENT/REFUSAL FOR 2020-03-12 23:39:34 Doctor Unassigned, No Un [facility] DIAGNOSIS AND TREATMENT Name Medical Branch Plan of Care Planned Activity Planned Date Details Comments Source Future Scheduled 2023-03-26 Lipid panel (procedure) [facility] 00:00:00 [code = 20441873] Medical Ce nter Future Scheduled 2023-03-26 Lipid panel (procedure) [facility] 00:00:00 [code = 48613795] Medical Ce nter Future Scheduled 2023-03-26 Lipid panel (procedure) [facility] 00:00:00 [code = 68883473] Medical Ce nter Future Scheduled 2023-03-26 Lipid panel (procedure) [facility] 00:00:00 [code = 74963567] Medical Ce nter Future Scheduled 2022-10-18 Influenza Vaccine (#1) [facility]00 [code = Influenza Medical Ce nter Vaccine (#1)] Future Scheduled 2022-02-[address] [facility] 00:00:00 (12+) [code = Medical Center DEPRESSION SCREENING (12+)] Future Scheduled 2021-10-18 INFLUENZA VACCINE (#1) [facility] 00:00:00 [code = INFLUENZA Medical Ce nter VACCINE (#1)] Future Scheduled 2021-08-10 SHINGLES VACCINES ([address] [facility] 00:00:00 2) [code = SHINGLES [facility] VACCINES (1 of 2)] Future Scheduled 2021-08-10 SHINGLES VACCINES ([address] [facility] 00:00:00 2) [code = SHINGLES [facility] VACCINES (1 of 2)] Future Scheduled 2021-02-[address] [facility] 00:00:00 (12+) [code = Medical Center DEPRESSION SCREENING (12+)] Future Scheduled 2020-11-[address] [facility] 00:00:00 measurement (procedure) [facility] Center [code = 47042238] Future Scheduled 2020-11-[address] [facility] 00:00:00 measurement (procedure) [facility] Center [code = 75102027] Future Scheduled 2020-11-[address] [facility] Test 00:00:00 measurement (procedure) [facility] Center [code = 67182106] Future Scheduled 2020-11-[address] [facility] Test 00:00:00 measurement (procedure) [facility] [code = 28930032] Future Scheduled 2020-10-18 INFLUENZA VACCINE (#1) C [...] Joby ter VACCINE (1)] Future Scheduled [address] [facility] 00:00:00 Counseling and Medical Cente r Screening (12+) [code = Tobacco Cessation Counseling and Screening (12+)] Future Scheduled 1981-08-10 DIABETIC EYE EXAM [code [facility] 00:00:00 = DIABETIC EYE EXAM] Medical Center Future Scheduled 1981-08-[address] [facility] 00:[facility]:00 examination Medical Center (regime/therapy) [code = 890376656] Future Scheduled 1981-08-10 Urine screening for [facility] 00:00:00 protein (procedure) Medical Center [code = 079560478] Future Scheduled 1981-08-10 DIABETIC EYE EXAM [code [facility] 00:00:00 = DIABETIC EYE EXAM] Medical Center Future Scheduled 1981-08-[address] [facility] 00:00:00 examination Medical Center (regime/therapy) [code = 136376431] Future Scheduled 1981-08-10 Urine screening for [facility] 00:00:00 protein (procedure) Medical Center [code = 502607932] Future Scheduled 1981-08-10 DIABETIC EYE EXAM [code [facility] 00:00:00 = DIABETIC EYE EXAM] Medical Center Future Scheduled 1981-08-10 Urine screening for [facility] 00:00:00 protein (procedure) Medical Center [code = 087555043] Future Scheduled 1981-08-10 DIABETIC EYE EXAM [code [facility] 00:00:00 = DIABETIC EYE EXAM] Medical Center Future Scheduled 1981-08-10 Urine screening for [facility] 00:00:00 protein (procedure) Medical Center [code = 289442311] Future Scheduled 1977-08-[address] [...] 0-64 YRS (1 - PCV)] Future Scheduled 1977-08-10 Pneumococcal Vaccine: [facility] 00:[facility]:00 0-64 Years (1 - PCV) Medical Center [code = Pneumococcal Vaccine: 0-64 Years (1 - PCV)] Future Scheduled 1972-02-10 COVID-19 VACCINE (#1) [facility] 00:00:00 [code = COVID-[address] VACCINE (#1)] Future Scheduled 1972-02-10 COVID-19 VACCINE (#1) [facility] 00:00:00 [code = COVID-[address] VACCINE (#1)] Future Scheduled 1971 Screening for malignant [facility] 00:00:00 neoplasm of colon Medical Ce nter (procedure) [code = 057959160] Future Scheduled 1971 Screening for malignant [facility] 00:00:00 neoplasm of colon Medical Ce nter (procedure) [code = 336473535] Future Scheduled 1971 CT Colonography (combo) [facility] 00:00:00 [code = CT Colonography [facility] (combo)] Future Scheduled 1971 Screening for malignant [facility] 00:00:00 neoplasm of colon Medical Ce nter (procedure) [code = 941225668] Future Scheduled 1971 Screening for malignant [facility] 00:00:00 neoplasm of colon Medical Ce nter (procedure) [code = 018009625] Future Scheduled 1971 Screening for malignant [facility] 00:00:00 neoplasm of colon Medical Ce nter (procedure) [code = 879645845] Future Scheduled 1971 Screening for malignant [facility] 00:00:00 neoplasm of colon Medical Ce nter (procedure) [code = 363808581] Future Scheduled 1971 Sigmoidoscopy [code = [facility] Sigmoidoscopy] Medical Cente r Future Scheduled 1971 Screening for malignant [facility] 00:00:00 neoplasm of colon Medical Ce nter (procedure) [code = 821432847] Future Scheduled 1971 Screening for malignant [facility] 00:00:00 neoplasm of colon Medical Ce nter (procedure) [code = 985953881] Future Scheduled 1971 Sigmoidoscopy [code = [facility] Sigmoidoscopy] Medical [facility] r Future Scheduled 1971 CT Colonography (combo) [facility] 00:00:00 [code = CT Colonography [facility] (combo)] Future Scheduled 1971 Screening for malignant [facility] 00:00:00 neoplasm of colon Medical Ce nter (procedure) [code = 175640665] Future Scheduled 1971 Screening for malignant [facility] Test 00:00:00 neoplasm of colon Medical Ce nter (procedure) [code = 696374375] Encounters Start End Encounter Admission Attending Care Care Encounter Source Date/Time Date/Time Type Type Clinicians Facility Department ID 2022-03-18 Outpatient STLMLC STLC [id number] Common 12:58:01 [id number] [facility] 2022-02-21 Outpatient STLMLC STLMLC [id number] Common 14:10:02 [id number] [facility] 2021-03-14 Outpatient STLMLC STLMLC [id number] Common 13:31:16 [id number] [facility] 2021-03-14 Outpatient Rodney, STLMLC STLC [id number] Common 13:16:25 Avnee [id number] [facility] 2020-12-16 Emergency [facility] [id number] Univers 22:17:29 ity [facility] 2020-12-16 Emergency [facility] [id number] Univers 20:46:[address] [facility] 2020-08-14 Inpatient ER JOSE YADAV Urology [id number] SLSSolitario 03:51:00 NUZHAT 2022-03-18 2022-03-18 OFFICE STLC STLC [id number] Co mmon 00:00:00 00:00:00 VISIT [facility] PT LEVEL 4 [facility] 2022-02-07 2022-02-07 Telephone Adam [facility] [id number] Univers 00:00:00 00:00:00 Junaid LOZANO [id number] it y of [facility] [id number] [place] as LUIS?BLEA [phone] [address] MEDICAL OFFICE BUILDING 2022-02-07 2022-02-07 Orders Doctor DARRIAN 1.2.840.114 [id number] Univers 00:00:00 00:00:00 Only Unassigned, JUAN JOSE [id number] ity of Ignacio [facility] [id number] [place] as [phone] [address] 2021-08-27 2021-08-[address] [facility] [id number] [facility]-08[facility] [facility] [id number] 00:00:00 00:00:00 [facility] 2020-12-20 2020-12-20 Outpatient Tyrone_L [facility] [id number] [place] 11:25:00 11:25:00 [id number] [facility] 2020-08-14 2020-08-18 [facility] [id number] 03:51:00 11:45:00 Encounter [facility] 2020-08-14 2020-08-14 Travel [facility] [id number] [facility] 00:[facility]00 00:00:00 [facility] 2020-08-07 2020-08-07 [facility] [id number] Co mmon 00:00:00 00:00:00 [facility] 2020-08-04 2020-08-04 OFFICE STLC STLC [id number] Co mmon 00:00:00 00:00:00 VISIT NEW Jaylin it PT LEVEL 4 - [facility] 2020-03-18 2020-03-19 Emergency Radha Oliveira [facility] 1.2.840.114 [id number] Univers 18:44:00 00:48:00 Tammy Pope [id number] i ty [place] [facility] 4.2.7.2.[place] [phone] [facility] 084 [place] 2020-03-18 2020-03-18 Outpatient Latoya MCFARLAND [facility] [id number] Univers 18:30:00 18:30:00 SAUL ity [facility] 2020-03-18 2020-03-18 Nurse Nurse, [facility] Urgent Care [facility] 1.2 .840.114 [id number] Univers 18:29:02 18:29:11 Visit Saul Mcfarland [facility] [id number] ity [facility] [id number] [place] as Professio [phone] Hi alessandro triplett [address] [place] [address] Office Building One 2020-03-18 2020-03-18 Outpatient Latoya MCFARLAND [facility] [id number] Univers 17:40:00 17:40:00 SAUL ity [facility] 2020-03-15 2020-03-15 Nurse Therapy, [facility] 1.2.840.114 [id number] 09:44:59 18:56:55 Visit [facility] Covid SPECIALTY [id number] Infusion CARE [id number] CENTER AT [phone] [address] [place] [address] 2020-03-15 2020-03-15 Nurse Therapy, [facility] Covid Infusion [facility] 1.2.840.114 [id number] Univers 09:44:59 18:56:55 Visit Stefany Guerrero SPECIALTY [id number] ity of CARE 4.2.7.2.686 [facility] CENTER AT [phone] Hi alessandro PETER 053 [facility] 2020-03-15 2020-03-15 Outpatient R CESAR [facility] [id number] Univers 09:30:00 09:30:00 STEFANY arias [facility] 2020-03-15 2020-03-15 Orders Doctor COLMENARES 1.2.840.114 [id number] 00:00:00 00:00:00 Only Unassigned, JUAN JOSE [id number] Ignacio [facility] 4.2.7.2.686 [id number] 2020-03-15 2020-03-15 Orders Doctor DARRIAN 1.2.840.114 [id number] Univers 00:00:00 00:00:00 Only Unassigned, JUAN JOSE [id number] ity of Ignacio [facility] 4.2.7.2.686 [facility] [id number] [facility] 009 Branch 2020-03-14 2020-03-14 Outpatient R [facility] [id number] Univers 09:00:00 09:00:00 STEFANY arias [facility] 2020-03-12 2020-03-12 Emergency Pardo Debby [facility] 1.2.840 .114 [id number] Univers 17:49:00 21:01:00 [facility].10 [facility] 4.2.7.2.686 [facility] [phone] [facility] 084 Branch 2020-03-12 2020-03-12 Emergency [facility] [id number] Univers 17:49:00 21:01:00 [facility] Results Test Description Test Time Test Comments Results Result Comments Source Hepatitis C antibody 2021-08-27 10:38:58 Test Item Value Reference Range Interpretation Comme nts Hepatitis C Ab (test code = 11218-6) Nonreactive Nonreactive ЕЛЕНА (test code = ЕЛЕНА) [employer] Operator ID - DB Lab Interpretation (test code = 06497-1) [facility] [id number] 10:38:58 Test Item Value Reference Range Interpretation Comments Hepatitis C Ab (test code = Nonreactive Nonreactive 50915-7) ЕЛЕНА (test code = ЕЛЕНА) [employer] Operator ID - DB Lab Interpretation (test Normal code = 37281-6) [facility] [id number] 10:38:58 Test Item Value Reference Range Interpretation Comments HEPATITIS C ANTIBODY (BEAKER) Nonreactive Nonreactive (test code = 367) [employer] Operator ID - DBBlood Culture - Routine (Left Venipuncture)2020-08-19 10:01:00 Test Item Value Reference Range Interpretation Comments Result (test code = No growth in 5 days 6463-4) [facility] (Left Venipuncture)2020-08-19 10:01:00 Test Item Value Reference Range Interpretation Comments Result (test code = No growth in 5 days 6463-4) [facility] [id number] 10:01:00 Test Item Value Reference Range Interpretation Comments CULTURE (BEAKER) (test No growth in 5 days code = 1095) BLOOD [id number] 10:01:00 Test Item Value Reference Range Interpretation Comments CULTURE (BEAKER) (test No growth in 5 days code = 1095) POC-Glucose [id number] 08:00:00 Test Item Value Reference Range Interpretation Comments POC-Glucose Meter (test 249 mg/dL 70-110 H : TE STED AT [facility] code = 1538) [address] [place] [address]: [employer] Drum Operator/Techni adrian ID = [id number] for Estevan Bright Lab Interpretation (test Abnormal code = 06583-4) [facility] [id number] 08:00:00 Test Item Value Reference Range Interpretation Comments POC-Glucose Meter (test 249 mg/dL 70-110 H : TE STED AT [facility] code = 1538) [address] [place] [address]9518: [employer] Drum Operator/Techni adrian ID = [id number] for Janet Brightha n Lab Interpretation (test Abnormal code = 04689-3) [facility]SE [id number] 08:00:00 Test Item Value Reference Range Interpretation Comments POC-GLUCOSE METER 249 mg/dL 70-110 H : TESTED A T [facility] 1317 (BEAKER) (test code [facility], = 1538) [place] [id number]: Chrome Tanning Drum Operator/Techni adrian ID = [id number] for Ventura Aguilar CBC with platelet count + automated [id number] 05:55:00 Test Item Value Reference Range Interpretation Comments WBC (test code = 6690-2) 4.8 See_Comment [A utomated message] The system [employer] generated this result transmitted ref erence range: 4.0 - 10 .0 K/L. The refe rence range was not u sed to interpret this result as normal/abnor mal. RBC (test code = 789-8) 4.22 See_Comment [Au tomated message] The system [employer] generated this result transmitted ref erence range: 4.20 - 5 .80 M/L. The refe rence range was not u sed to interpret this result as normal/abnor mal. MCHC (test code = 786-4) 33.5 See_Comment L [A utomated message] The system [employer] generated this result transmitted ref erence range: [...] See_Comment [Aut omated message] 777-3) The system [employer] generated this result transmitted ref erence range: 150 - 43 0 K/CU MM. The referen ce range was not u sed to interpret this result as normal/abnor mal. MPV (test code = 10.3 fL 6.0-11.5 48118-1) nRBC (test code = 413) 0 See_Comment [Aut omated message] The system [employer] generated this result transmitted ref erence range: 0 - 0 /1 00 WBC. The refere nce range was not u sed to interpret this result as normal/abnor mal. Lab Interpretation (test Abnormal code = 74181-1) [facility] [id number] 05:55:00 Test Item Value Reference Range Interpretation Comments % Neutros (manual) (test 33 % code = 1359) % Lymphs (manual) (test 55 % code = 1360) % Monos (manual) (test 8 % code = 1361) % Eos (manual) (test 4 % code = 1362) # Neutros (manual) (test 1.58 See_Comment L [A utomated message] code = 1365) The system [employer] generated this result transmitted ref erence range: 1.80 - 8 .00 K/L. The refe rence range was not u sed to interpret this result as normal/abnor mal. # Lymphs (manual) (test 2.64 See_Comment [Au tomated message] code = 1366) The system [employer] generated this result transmitted ref erence range: 1.48 - 4 .50 K/L. The refe rence range was not u sed to interpret this result as normal/abnor mal. # Monos (manual) (test 0.38 See_Comment [Aut omated message] code = 1367) The system [employer] generated this result transmitted ref erence range: 0.00 - 1 .30 K/L. The refe rence range was not u sed to interpret this result as normal/abnor mal. # Eos (manual) (test 0.19 See_Comment [Autom ated message] code = 1368) The system [employer] generated this result transmitted ref erence range: 0.00 - 0 .50 K/L. The refe rence range was not u sed to interpret this result as normal/abnor mal. Total Counted (test code 100 = 1351) WBC Morphology (test Normal code = 487) Platelet Morphology Normal (test code = 486) RBC Morphology (test Normal code = 762) Lab Interpretation (test Abnormal code = 06777-4) [facility] with platelet count + automated [id number] 05:55:00 Test Item Value Reference Range Interpretation Comments WBC (test code = 6690-2) 4.8 See_Comment [A utomated message] The system [employer] generated this result transmitted ref erence range: 4.0 - 10 .0 K/L. The refe rence range was not u sed to interpret this result as normal/abnor mal. RBC (test code = 789-8) 4.22 See_Comment [Au tomated message] The system [employer] generated this result transmitted ref erence range: 4.20 - 5 .80 M/L. The refe rence range was not u sed to interpret this result as normal/abnor mal. MCHC (test code = 786-4) 33.5 See_Comment L [A utomated message] The system [employer] generated this result transmitted ref erence range: [...] See_Comment [Aut omated message] 777-3) The system [employer] generated this result transmitted ref erence range: 150 - 43 0 K/CU MM. The referen ce range was not u sed to interpret this result as normal/abnor mal. MPV (test code = 10.3 fL 6.0-11.5 13924-1) nRBC (test code = 413) 0 See_Comment [Aut omated message] The system [employer] generated this result transmitted ref erence range: 0 - 0 /1 00 WBC. The refere nce range was not u sed to interpret this result as normal/abnor mal. Lab Interpretation (test Abnormal code = 81976-0) [facility] Gaxtzjouuwnp8927-23-55 05:55:00 Test Item Value Reference Range Interpretation Comments % Neutros (manual) (test 33 % code = 1359) % Lymphs (manual) (test 55 % code = 1360) % Monos (manual) (test 8 % code = 1361) % Eos (manual) (test 4 % code = 1362) # Neutros (manual) (test 1.58 See_Comment L [A utomated message] code = 1365) The system [employer] generated this result transmitted ref erence range: 1.80 - 8 .00 K/L. The refe rence range was not u sed to interpret this result as normal/abnor mal. # Lymphs (manual) (test 2.64 See_Comment [Au tomated message] code = 1366) The system [employer] generated this result transmitted ref erence range: 1.48 - 4 .50 K/L. The refe rence range was not u sed to interpret this result as normal/abnor mal. # Monos (manual) (test 0.38 See_Comment [Aut omated message] code = 1367) The system [employer] generated this result transmitted ref erence range: 0.00 - 1 .30 K/L. The refe rence range was not u sed to interpret this result as normal/abnor mal. # Eos (manual) (test 0.19 See_Comment [Autom ated message] code = 1368) The system [employer] generated this result transmitted ref erence range: 0.00 - 0 .50 K/L. The refe rence range was not u sed to interpret this result as normal/abnor mal. Total Counted (test code 100 = 1351) WBC Morphology (test Normal code = 487) Platelet Morphology Normal (test code = 486) RBC Morphology (test Normal code = 762) Lab Interpretation (test Abnormal code = 37569-8) [facility] W/PLT COUNT & AUTO [id number] 05:55:00 Test Item Value Reference Range Interpretation [...] (test code Normal = 762) Basic Metabolic Eihzl2886-45-58 05:36:00 Test Item Value Reference Range Interpretation Comments Sodium (test code = 138 meq/L 391-413 1878-2) Potassium (test code = 3.9 meq/L 3.6-5.5 2823-3) Chloride (test code = 105 meq/L 98-106 5-0) CO2 (test code = 22 meq/L 20-29 8-9) BUN (test code = 4 mg/dL 10-26 L 3094-0) Creatinine (test code 0.91 mg/dL 0.50-1.20 = 2160-0) Glucose (test code = 285 mg/dL 70-110 H 2345-7) Calcium (test code = 9.7 mg/dL 8.5-10.5 95108-1) EGFR (test code = 107 mL/min/1.73 [place] [address]-0) NOT ACCURATE CREATININE CLEARANCE IN PREDICTING GLOMERULAR FILTRATION RATE . ESTIMATED GFR I S NOT APPLICABLE FOR DIALYSIS PATIENTS. ЕЛЕНА (test code = ЕЛЕНА) [employer] Operator ID - [id number] ID - [id number] ID - wyox63Ipbkjprc ID - zoem28Osyyanjt ID - bblp19Htuhtkow ID - ptuk69Jjaamaol ID - eqgt33Huezltru ID - dsfx37Uqujygmc ID - znhb81Pcxwhina ID - tlgr16Mjbehqxg ID - veel23Jfgkoupk ID - anhn12Tqbvybvo ID - zdxs12 Lab Interpretation Abnormal (test code = 60453-3) [facility] Metabolic [id number] 05:36:00 Test Item Value Reference Range Interpretation Comments Sodium (test code = 138 meq/L 569-495 2710-2) Potassium (test code = 3.9 meq/L 3.6-5.5 2823-3) Chloride (test code = 105 meq/L 98-106 2075-0) CO2 (test code = 22 meq/L 20-29 8-9) BUN (test code = 4 mg/dL 10-26 L 3094-0) Creatinine (test code 0.91 mg/dL 0.50-1.20 = 2160-0) Glucose (test code = 285 mg/dL 70-110 H 2345-7) Calcium (test code = 9.7 mg/dL 8.5-10.5 65476-5) EGFR (test code = 107 mL/min/1.73 [place] [address]-3) NOT ACCURATE CREATININE CLEARANCE IN PREDICTING GLOMERULAR FILTRATION RATE . ESTIMATED GFR I S NOT APPLICABLE FOR DIALYSIS PATIENTS. ЕЛЕНА (test code = ЕЛЕНА) [employer] Operator ID - [id number] ID - scxj57Kjuesauz ID - mjgh96Wuhvllrv ID - ukpr89Fgeneffo ID - vdgu47Pxfcwwny ID - xmcq88Xdcmcafv ID - qxdw13Dbihjaka ID - aaoo51Blmtqsor ID - atll54Svnvbaem ID - rqex77Qizbdejy ID - uesg55Tisnfafb ID - wssd47Wupqtqrl ID - zdxs12 Lab Interpretation Abnormal (test code = 27781-3) [facility] [id number] 05:36:00 Test Item Value Reference Range Interpretation [...] S NOT APPLICABLE FOR DIALYSIS PATIEN TS. [employer] Operator ID - [id number] ID - offq04Ufajdncx ID - gzeq85Qenrhmro ID - joxu41Qnhofnus ID - izdf88Gzxnmege ID - mnir86Ntszfyft ID - rptc74Xpjcihuf ID - aybo44Wwzbhrjg ID - rdnu45Attrbgje ID - wmmm05Hqahqikz ID - aljx97Qvqvhcvd ID - boga47Zabigsji ID - uwin11AEZU-YYTNRDO [id number] 20:26:00 Test Item Value Reference Range Interpretation Comments POC-GLUCOSE METER 183 mg/dL 70-110 H : TESTED A T [address] 1317 (BEAKER) (test code [address], = 1538) [facility] [address]: [employer] Drum Operator/Techni adrian ID = [id number] for Halima Neff POCT-GLUCOSE [id number] 16:44:00 Test Item Value Reference Range Interpretation Comments POC-GLUCOSE METER 196 mg/dL 70-110 H : TESTED A T [facility] [address]17 (BEAKER) (test code [address], = 1538) [facility] 77 [address]: [employer] Drum Operator/Techni adrian ID = [id number] for Alicia Barcenas POCT-GLUCOSE [id number] 11:16:00 Test Item Value Reference Range Interpretation Comments POC-GLUCOSE METER 320 mg/dL 70-110 H : TESTED A T [facility] [address]17 (BEAKER) (test code [address], = 1538) [facility] [address]: [employer] Drum Operator/Techni adrian ID = [id number] for Alicia Barcenas CBC W/PLT COUNT & AUTO [id number] 09:00:00 Test Item Value Reference Range Interpretation [...] MORPHOLOGY (BEAKER) (test code Normal = 762) Fndnibqjh3165-33-50 08:35:00 Test Item Value Reference Range Interpretation Comments Magnesium (test code = 1.9 mg/dL 1.5-3.0 16046-0) ЕЛЕНА (test code = ЕЛЕНА) [employer] Operator ID - [id number] ID - [id number] ID - [id number] ID - [id number] Lab Interpretation (test Normal code = 96192-6) [facility] 08:35:00 Test Item Value Reference Range Interpretation Comments Magnesium (test code = 1.9 mg/dL 1.5-3.0 78584-3) ЕЛЕНА (test code = ЕЛЕНА) [employer] Operator ID - [id number] ID - [id number] ID - KQSES052Ksgenqcb ID - [id number] Lab Interpretation (test Normal code = 20805-9) [facility]21[facility] 08:35:00 Test Item Value Reference Range Interpretation Comments MAGNESIUM (BEAKER) (test code = 1.9 mg/dL 1.5-3.0 627) [employer] Operator ID - [id number] ID - [id number] ID - [id number] ID - [id number] METABOLIC [id number] 08:34:00 Test Item Value Reference Range Interpretation [...] S NOT APPLICABLE FOR DIALYSIS PATIEN TS. [employer] Operator ID - [id number] ID - [id number] ID - [id number] ID - BUOTQ375Twciasqd ID - JAMFN603Kuectnwx ID - FJLSD159Djdjhldn ID - BAPCJ083Ryrenfol ID - PFQFJ521Qinwypow ID - XFMAJ764Kfckiesv ID - [id number] Vancomycin level, kiivmd8337-11-37 06:00:00 Test Item Value Reference Range Interpretation Comments Vancomycin Tr (test code = 11.1 ug/mL 10.0-20.0 4092-3) ЕЛЕНА (test code = ЕЛЕНА) [employer] Operator ID - [id number] Lab Interpretation (test Normal code = 61205-6) [facility]com[facility], twmglb8765-96-82 06:00:00 Test Item Value Reference Range Interpretation Comments Vancomycin Tr (test code = 11.1 ug/mL 10.0-20.0 4092-3) ЕЛЕНА (test code = ЕЛЕНА) [employer] Operator ID - [id number] Lab Interpretation (test Normal code = 69625-4) [facility]ANCOMYCIN LEVEL, [id number] 06:00:00 Test Item Value Reference Range Interpretation Comments VANCOMYCIN TROUGH (BEAKER) (test 11.1 ug/mL 10.0-20.0 code = 522) [employer] Operator ID - [id number] [id number] 21:21:00 Test Item Value Reference Range Interpretation Comments POC-GLUCOSE METER 270 mg/dL 70-110 H : TESTED A T [address] 1317 (BEAKER) (test code [address], = 1538) [place] [address]: [employer] Drum Operator/Techni adrian ID = [id number] for Aanu nisha singhicity POCT-GLUCOSE [id number] 17:13:00 Test Item Value Reference Range Interpretation Comments POC-GLUCOSE METER 266 mg/dL 70-110 H : TESTED A T [address] 1317 (BEAKER) (test code [address], = 1538) [place] [address]: [employer] Drum Operator/Techni adrian ID = [id number] for Garrett h, Nilam POCT-GLUCOSE [id number] 12:01:00 Test Item Value Reference Range Interpretation Comments POC-GLUCOSE METER 283 mg/dL 70-110 H : TESTED A T [address] 1317 (BEAKER) (test code [address], = 1538) [place] [address]: [employer] Drum Operator/Techni adrian ID = [id number] for Garrett h, Nilam POCT-GLUCOSE [id number] 08:47:00 Test Item Value Reference Range Interpretation Comments POC-GLUCOSE METER 253 mg/dL 70-110 H : TESTED A T [address]17 (BEAKER) (test code [address], = 1538) [place] [address]: [employer] Drum Operator/Techni adrian ID = [id number] for Roscoe ins, Nury Urine rtcoeof5749-36-59 08:39:00 Test Item Value Reference Range Interpretation Comments Result (test code = 6463-4) No growth [facility]rine ixsldyp7178-51-29 08:39:00 Test Item Value Reference Range Interpretation Comments Result (test code = 6463-4) No growth [facility]IC [id number] 06:09:00 Test Item Value Reference Range Interpretation [...] S NOT APPLICABLE FOR DIALYSIS PATIEN TS. [employer] Operator ID - LITOOperator ID - LITOOperator ID - LITOOperator ID - LITOOperator ID - LITOOperator ID - LITOOperator ID - LITOOperator ID - LITOOperator ID - LITOOperator ID - LITOOperator ID - LITOOperator ID - LITOOperator ID - LITOCBC W/PLT COUNT & AUTO [id number] 05:40:00 Test Item Value Reference Range Interpretation [...] PERCENT (BEAKER) (test code = 2801) POCT-GLUCOSE [id number] 21:41:00 Test Item Value Reference Range Interpretation Comments POC-GLUCOSE METER 270 mg/dL 70-110 H : TESTED A T [facility] [address] (BEAKER) (test code [facility] [address], = 1538) [facility] [address]: [employer] Drum Operator/Techni adrian ID = [id number] for Lorenza Castanon VANCOMYCIN LEVEL, [id number] 20:39:00 Test Item Value Reference Range Interpretation Comments VANCOMYCIN TROUGH (BEAKER) (test 6.1 ug/mL 10.0-20.0 L code = 522) [employer] Operator ID - [id number] [id number] 17:05:00 Test Item Value Reference Range Interpretation Comments POC-GLUCOSE METER 295 mg/dL 70-110 H : Notified RN/MD: TESTED (ABIODUN) (test code AT [facility] [address] = 1538) [facility] [address] [employer] T[employer] Drum Operator/Techni adrian ID = [id number] for Evan Husain CT, SIQGXZJ9338-82-92 15:49:00Unlisted Reason for Exam - Click Yes and Enter Reason Below->YesConcern for groin abscessUnlistedReason for Exam->Concern for right groin \\T\\ perineal abscess vs nec fascWill this procedure require oral contrast?->NoSH[facility]Name: [facility] : 1970 Sex: MFINAL REPORT [...] infiltration of the liver. Signed: Dennis Huerta MDRepaudrain medical center Verified Date/Time: 08/15/2020 15:49:43 Reading Location: [facility] Diagnostic Imaging Reading Room - [place] [address] POCT-GLUCOSE [id number] 11:18:00 Test Item Value Reference Range Interpretation Comments POC-GLUCOSE METER 288 mg/dL 70-110 H : Notified RN/MD: TESTED (BEAKER) (test code AT [address] = 1538) MINDYJean-Paul [facility] [address]: [employer] Drum Operator/Techni adrian ID = [id number] for Evan Husain POCT-GLUCOSE [id number] 07:33:00 Test Item Value Reference Range Interpretation Comments POC-GLUCOSE METER 295 mg/dL 70-110 H : Notified RN/MD: TESTED (BEAKER) (test code AT [facility] [address] = 1538) [facility] [address]: [employer] T[employer] Drum Operator/Techni adrian ID = [id number] for Ravin Husainbeheather BASIC METABOLIC [id number] 05:52:00 Test Item Value Reference Range Interpretation [...] S NOT APPLICABLE FOR DIALYSIS PATIEN TS. [employer] Drum Operator ID - LITOOperator ID - LITOOperator ID - LITOOperator ID - LITOOperator ID - LITOOperator ID - LITOOperator ID - LITOOperator ID - LITOOperator ID - LITOOperator ID - LITOOperator ID - LITOOperator ID - LITOCBC W/PLT COUNT & AUTO [id number] 05:19:00 Test Item Value Reference Range Interpretation [...] PERCENT (BEAKER) (test code = 2801) POCT-GLUCOSE [id number] 21:11:00 Test Item Value Reference Range Interpretation Comments POC-GLUCOSE METER 279 mg/dL 70-110 H : TESTED A T [facility] 1317 (BEAKER) (test code [address], = 1538) [facility] [address]: [employer] Drum Operator/Techni adrian ID = [id number] for sammi Peter SARS-CoV2/RT-PCR (Asymptomatic ONLY)2020-08-14 18:18:00 Test Item Value Reference Range Interpretation Comments SARS-COV2/RT-PCR Negative Not Detected, Performanc e of the Xpert (test code = Negative, See Xpress 85630-9) external report SARS-CoV-2/F andrea/RSV test for linked test has only bee n established in nasopharyngeal swab specimens. Use of the Xpert Xpress SARS-CoV-2/Flu/ RSV test with other spec imen types has not b een assessed and pe rformance characteristics are unknown. As wit h any molecular test, mutations withi n the targeted geneti c regions identified by t robbin Xpert Xpress SARS-CoV-2/Flu/ RSV test could affect [...] Fact Sh eet for Healthcare Prov iders: https://www.[employer]/ Documents/Xpert %20Xpress %86MVYK-VlV-6-F andrea-RSV/30 2-4508%20Rev.%2 0B%20HCP% 20Fact%20Sheet. pdf Fact Sheet for Healt hcare Patients: https://www.[employer]to/ Documents/Xpert %20Xpress %93AEUR-PtY-7-F andrea-RSV/30 2-4507%20Rev.%2 0B%20Pati ent%20Fact%20Sh eet.pdf SARS-COV-2 SLSL Performed at:[facility] PERFORM[facility] Abril Malave [id number] (test code = [place] Archule[address] [address]57[address]-4) [place] [address] ph: [phone] [facility] (Asymptomatic ONLY)2020-08-14 18:18:00 Test Item Value Reference Range Interpretation Comments SARS-COV2/RT-PCR Negative Not Detected, Performanc e of the Xpert (test code = Negative, See Xpress 92026-1) external report SARS-CoV-2/F andrea/RSV test for linked [...] Fact Sh eet for Healthcare Prov iders: https://www.[employer]/ Documents/Xpert %20Xpress %67JMPZ-AyY-8-F andrea-RSV/30 2-4508%20Rev.%2 0B%20HCP% 20Fact%20Sheet. pdf Fact Sheet for Healt hcare Patients: https://www.[employer]/ Documents/Xpert %20Xpress %34UKJZ-UqW-8-F andrea-RSV/30 2-4507%20Rev.%2 0B%20Pati ent%20Fact%20Sh eet.pdf SARS-COV-2 SLSL Performed at:[facility] PERFORM[facility] Abril pierce1317 (test code = [place] Archule[place] 115[address]-2) [place] [address] ph: [phone] [facility] ([facility])2020-08-14 18:18:00 Test Item Value Reference Range Interpretation Comments SARS-COV2/RT-PCR Negative Not Detected, Performanc e of the Xpert (test code = Negative, See Xpress 1377399) external report SARS-CoV-2/F andrea/RSV test for linked [...] sooner.Fact She et for Healthcare Prov iders: https://www.[employer]/ Documents/Xpert %20Xpress %83FJVC-PuW-8-F andrea-RSV/30 2-4508%20Rev.%2 0B%20HCP% 20Fact%20Sheet. pdfFact Sheet for Healt hcare Patients: https://www.Tyto/ Documents/Xpert %20Xpress %37RGVH-QeY-7-F andrea-RSV/30 2-4507%20Rev.%2 0B%20Pati ent%20Fact%20Sh eet.pdf SARS-COV-2 [facility] Performed at:[facility] PERFORMING LAB [facility]1317 (test code = [facility] 9928288) [place], [place] [address]b h: [phone] POCT-GLUCOSE [id number] 16:54:00 Test Item Value Reference Range Interpretation Comments POC-GLUCOSE METER 261 mg/dL 70-110 H : Notified RN/MD: TESTED (ABIODUN) (test code AT [facility] [address] [facility] = 1538) [place] [facility] [address]: Chrome T[employer] Drum Operator/Techni adrian ID = [id number] for Evan Husain POCT-GLUCOSE [id number] 11:22:00 Test Item Value Reference Range Interpretation Comments POC-GLUCOSE METER 337 mg/dL 70-110 H : Notified RN/MD: TESTED (ABIODUN) (test code AT [facility] [address] = 1538) [place] [address]: Chrome Tanning Drum Operator/Techni adrian ID = [id number] for Evan Husain U/S, TESTICULAR (SCROTUM)2020-08-14 09:17:00Reason for exam:->Swelling, pain, erythema of the right scrotum [facility] : 1970 Sex: MFINAL REPORT [...] hydrocoele. . IMPRESSION: Normal testicular ultrasound. Signed: Cheom Marks Verified Date/Time: 08/14/2020 09:17:05 Reading Location: [facility] Radiology Reading Room POCT-GLUCOSE [id number] 07:33:00 Test Item Value Reference Range Interpretation Comments POC-GLUCOSE METER 404 mg/dL 70-110 HH : Notified RN/MD: TESTED (BEAKER) (test code AT [facility] [address] = 1538) [facility] [address]: Chrome Tanning Drum Operator/Techni adrian ID = [id number] for Evan Husain Urinalysis w/Microscopic + Reflex to [id number] 07:32:00 Test Item Value Reference Range Interpretation Comments Color, UA (test code Yellow = 5778-6) Clarity, UA (test Slightly Cloudy code = 5767-9) Specific [place], UA 1.020 1.001-1.035 (test code = 5811-5) pH, UA (test code = 6.0 5.0-8.0 5803-2) Protein, UA (test Negative Negative code = 23362-7) Glucose, UA (test >=1000 mg/dL Negative A code = 365) Ketones, UA (test 15 mg/dL Negative A code = 2514-8) Bilirubin, UA (test Negative Negative code = 43958-5) Blood, UA (test code Trace Negative A = 22169-2) Nitrite, UA (test Negative Negative code = 5802-4) Leukocytes, UA (test Negative Negative code = 5799-2) Urobilinogen, UA 0.2 mg/dL 0.2-1.0 (test code = 86129-4) Bacteria, UA (test Rare code = 64929-5) RBC, UA (test code = 5-10 See_Comment [Autom ated 799-7) message] The system which generated this result transmit odalys reference range : /HPF. The reference range was not used to interpret this result as normal/abnormal . WBC, UA (test code = 20-50 See_Comment [Autom ated 20314-1) message] The system which generated this result transmit odalys reference range : /HPF. The reference range was not used to interpret this result as normal/abnormal . SQUAMOUS EPITHELIAL <5 See_Comment [Automa odalys (test code = 16121-7) messag e] The system which generated this result transmit odalys reference range : /HPF. The reference range was not used to interpret this result as normal/abnormal . Specimen Source (test code = 2795) Lab Interpretation Abnormal (test code = 67207-3) [facility]/Microscopic + Reflex to Culture 2020-08-14 07:32:00 Test Item Value Reference Range Interpretation Comments Color, UA (test code Yellow = 5778-6) Clarity, UA (test Slightly Cloudy code = 5767-9) Specific [place], UA 1.020 1.001-1.035 (test code = 5811-5) pH, UA (test code = 6.0 5.0-8.0 5803-2) Protein, UA (test Negative Negative code = 07883-9) Glucose, UA (test >=1000 mg/dL Negative A code = 365) Ketones, UA (test 15 mg/dL Negative A code = 2514-8) Bilirubin, UA (test Negative Negative code = 86468-9) Blood, UA (test code Trace Negative A = 38072-7) Nitrite, UA (test Negative Negative code = 5802-4) Leukocytes, UA (test Negative Negative code = 5799-2) Urobilinogen, UA 0.2 mg/dL 0.2-1.0 (test code = 89009-3) Bacteria, UA (test Rare code = 92931-8) RBC, UA (test code = 5-10 See_Comment [Autom ated 799-7) message] The system which generated this result transmit odalys reference range : /HPF. The reference range was not used to interpret this result as normal/abnormal . WBC, UA (test code = 20-50 See_Comment [Autom ated 26296-7) message] The system which generated this result transmit odalys reference range : /HPF. The reference range was not used to interpret this result as normal/abnormal . SQUAMOUS EPITHELIAL <5 See_Comment [Automa odalys (test code = 13682-7) messag e] The system which generated this result transmit odalys reference range : /HPF. The reference range was not used to interpret this result as normal/abnormal . Specimen Source (test code = 2795) Lab Interpretation Abnormal (test code = 19816-8) [facility]/ REFLEX URINE [id number] 07:32:00 Test Item Value Reference Range Interpretation [...] 1663) SOURCE(BEAKER) (test code = 2795) Hemoglobin [id number] 06:51:00 Test Item Value Reference Range Interpretation Comments Hemoglobin A1C (test code 14.0 % 4.3-6.1 H = 4548-4) ЕЛЕНА (test code = ЕЛЕНА) [employer] Drum Operator ID - [id number] Lab Interpretation (test Abnormal code = 31844-9) [facility]emoglobin [id number] 06:51:00 Test Item Value Reference Range Interpretation Comments Hemoglobin A1C (test code 14.0 % 4.3-6.1 H = 4548-4) ЕЛЕНА (test code = ЕЛЕНА) [employer] Drum Operator ID - [id number] Lab Interpretation (test Abnormal code = 48949-3) [facility]HEMOGLOBIN [id number] 06:51:00 Test Item Value Reference Range Interpretation Comments HEMOGLOBIN A1C (BEAKER) (test code = 14.0 % 4.3-6.1 H 368) [employer] Drum Operator ID - [id number] METABOLIC [id number] 06:31:00 Test Item Value Reference Range Interpretation [...] S NOT APPLICABLE FOR DIALYSIS PATIEN TS. [employer] Drum Operator ID - [id number] ID - [id number] ID - [id number] ID - UYOC57Pmsxntyi ID - LARL53Pjdhawop ID - JZTV19Jwgbrdzp ID - JCBF73Jscykoko ID - OLNT39Ditwykbj ID - UDWP08Pcfdiqxq ID - [id number] 06:29:00 Test Item Value Reference Range Interpretation Comments MAGNESIUM (BEAKER) (test code = 1.7 mg/dL 1.5-3.0 627) [employer] Drum Operator ID - [id number] ID - [id number] ID - [id number] ID - [id number] Ybouspwvqk9776-13-03 06:26:00 Test Item Value Reference Range Interpretation Comments Phosphorus (test code = 3.3 mg/dL 2.5-4.5 2777-1) ЕЛЕНА (test code = ЕЛЕНА) [employer] Drum Operator ID - [id number] Lab Interpretation (test Normal code = 53984-3) [facility]osphorus2021-06-28 06:26:00 Test Item Value Reference Range Interpretation Comments Phosphorus (test code = 3.3 mg/dL 2.5-4.5 2777-1) ЕЛЕНА (test code = ЕЛЕНА) [employer] Drum Operator ID - [id number] Lab Interpretation (test Normal code = 83695-7) [facility]PHOSPHORUS2021-06-28 06:26:00 Test Item Value Reference Range Interpretation Comments PHOSPHORUS (BEAKER) (test code = 3.3 mg/dL 2.5-4.5 604) [employer] ID - [id number] time/[id number] 06:24:00 Test Item Value Reference Interpretation Comments [...] valves. Lab Interpretation Normal (test code = 27779-7) [facility][id number] 06:24:00 Test Item Value Reference Interpretation Comments [...] valves. Lab Interpretation Normal (test code = 35626-3) [facility][id number] 06:24:00 Test Item Value Reference Range Interpretation Comments PROTIME (BEAKER) 10.8 seconds 9.3-12.0 Final Infor mation (test code = 759) (Auto Outp ut) INR (BEAKER) (test 0.97 See_Comment Final Inf ormation code = 370) (Auto Output) [Automated mess age] The system [employer] generated this result transmitted ref erence range: <=5.90. The reference range was not used to int erpret this result as normal/abnormal . RECOMMENDED COUMADIN/WARFARIN INR THERAPY RANGESSTANDARD DOSE: 2.0 - 3.0 Includes: PROPHYLAXIS for venous thrombosis, systemic embolization; TREATMENT for venous thrombosis and/or pulmonary embolus.HIGH RISK: Target INR is 2.5-3.5 for patients with mechanical heart valves.CBC W/PLT COUNT & AUTO [id number] 06:16:00 Test Item Value Reference Range Interpretation [...] PERCENT (BEAKER) (test code = 2801) POCT-GLUCOSE [id number] 04:21:00 Test Item Value Reference Range Interpretation Comments POC-GLUCOSE METER 332 mg/dL 70-110 H : TESTED A T SLSL 1317 (BEAKER) (test code [facility] PKY, = 1538) [facility] 77 478: Chrome Tanning Drum Operator/Techni adrian ID = [id number] for Francesca Lassiter Lipid Panel w/ Chol/HDL [id number] 00:00:00 Test Item Value Reference Range Interpretation Comments Cholesterol, Total (test code = 2093-3) 135 100-199 Triglycerides (test code = 2571-8) 488 0-149 HDL Cholesterol (test code = 2085-9) 33 >39 T. Chol/HDL Ratio (test code = 9830-1) 4.1 0.0-5.0 Urinalysis, [id number] 00:00:00 Test Item Value Reference Range Interpretation Comments Specific [place] (test code = >=1.030 1.005-1.030 2965-2) pH (test code = 5803-2) 6.0 5.0-7.5 Urine-Color (test code = 5778-6) Yellow Yellow Appearance (test code = 5767-9) Clear Clear WBC Esterase (test code = 5799-2) Negative Negative Protein (test code = 62774-1) 2+ Negative/Trace Glucose (test code = 2349-9) 3+ Negative Ketones (test code = 2514-8) Trace Negative Occult Blood (test code = 5794-3) Negative Negative Bilirubin (test code = 5770-3) Negative Negative Urobilinogen,Semi-Qn (test code = 0.2 0.2-1.0 34851-0) Nitrite, Urine (test code = Negative Negative 5802-4) Microscopic Examination (test code See below: = 20101-7) Microalbumin/Creat Ratio, Random [id number] 00:00:00 Test Item Value Reference Range Interpretation Comments Creatinine, Urine (test code = 2161-8) 88.2 Not Estab. Albumin, Urine (test code = 86104-0) 264.6 Not Estab. Alb/Creat Ratio (test code = 90590-8) 300 0-29 Hemoglobin [id number] 00:00:00 Test Item Value Reference Range Interpretation Comments Hemoglobin A1c (test code = 4548-4) 12.9 4.8-5.6 Comp. Metabolic Panel (14) (CMP)2020-08-04 00:00:00 Test Item Value Reference Range Interpretation Comments Glucose (test code = 2345-7) 388 65-99 BUN (test code = 3094-0) 13 6-24 Creatinine (test code = 2160-0) 0.92 0.76-1.27 eGFR If NonAfricn Am (test code = 98 >59 97676-0) eGFR If Africn Am (test code = 01387-9) 113 >59 BUN/Creatinine Ratio (test code = 14 9-20 3097-3) Sodium (test code = 2951-2) 136 134-144 Potassium (test code = 2823-3) 5.3 3.5-5.2 Chloride (test code = 2075-0) 93 96-106 Carbon Dioxide, Total (test code = 24 20-2027-10) Calcium (test code = 37863-1) 11.0 8.7-10.2 Protein, Total (test code = 2885-2) 8.3 6.0-8.5 Albumin (test code = 1751-7) 4.8 4.0-5.0 Globulin, Total (test code = 25031-3) 3.5 1.5-4.5 A/G Ratio (test code = 1759-0) 1.4 1.2-2.2 Bilirubin, Total (test code = 1975-2) 0.3 0.0-1.2 Alkaline Phosphatase (test code = 85 48-121 6768-6) AST (SGOT) (test code = 1920-8) 49 0-40 ALT (SGPT) (test code = 1742-6) 63 0-44 CBC With Differential/[id number] 00:00:00 Test Item Value Reference Range Interpretation [...] Granulocytes (test code = 3 Not Estab. 69753-7) Immature Grans (Abs) (test code = 0.3 0.0-0.1 18694-6) NRBC (test code = 47617-5) Hematology Comments: (test code = 03492-0) BASIC METABOLIC PANEL (NA, K, CL, CO2, GLUCOSE, BUN, CREATININE, CA)2020-03-19 05:46:00 Test Item Value Reference Range Interpretation Comments NA (test code = 140 mmol/L 135-145 2775973985) K (test code = 4.0 mmol/L 3.5-5 3964489128) CL (test code = 104 mmol/L 98-108 8297591779) CO2 TOTAL (test code = 24 mmol/L 23-31 1939644254) AGAP (test code = 2-16 4864331608) BUN (test code = 23 mg/dL 7-23 6772175061) GLUCOSE (test code = 114 mg/dL 70-110 H 5587888576) CREATININE (test code = 1.09 mg/dL 0.6-1.25 6801610159) CALCIUM (test code = 9.4 mg/dL 8.6-10.6 8813607995) eGFR Calculation mL/min/1.73m2 (Non-) (test code = 3695671118) eGFR Calculation mL/min/1.73m2 () (test code = 0038477920) ЕЛЕНА (test code = ЕЛЕНА) Association of [...] tests). Lab Interpretation Abnormal (test code = 46453-4) [facility] Test Item Value Reference Range Interpretation Comments APPEARANCE (test code = Cloudy Clear A 2621961530) COLOR (test code = Gricelda Yellow A 2207948587) PH (test code = 4.8-8.0 8149043253) SP GRAVITY (test code = 1.003-1.030 8474130509) GLU U QUAL (test code = Normal Normal 2440757558) BLOOD (test code = 1+ Negative A 2603822723) KETONES (test code = 20 mg/dL Negative A 8161893680) PROTEIN (test code = 500 mg/dL Negative A 2887-8) UROBILIN (test code = 4.0 mg/dL Normal A 2722356107) BILIRUBIN (test code = 2 mg/dL Negative A 9762211896) NITRITE (test code = Negative Negative 5441904605) LEUK BRIDGET (test code = Negative Negative 6011005526) RBC/HPF (test code = See_Comment [Autom ated message] 5566953297) The system [employer] generated this result transmit odalys reference range : 0 - 3 HPF. The refe rence range was not u sed to interpret th is result as normal/abnormal . WBC/HPF (test code = See_Comment H [Autom ated message] 5397036752) The system [employer] generated this result transmit odalys reference range : 0 - 5 HPF. The refe rence range was not u sed to interpret th is result as normal/abnormal . BACTERIA (test code = Few Negative A 4747192036) MUCOUS (test code = Marked Negative LPF A 0259914272) SQ EPITH (test code = HPF 1587851501) HYAL CAST (test code = See_Comment H [Aut omated message] 9576312308) The system whic h generated this result transmit odalys reference range : <=2 LPF. The refere nce range was not u sed to interpret th is result as normal/abnormal . Lab Interpretation (test Abnormal code = 55206-6) [facility] + LACTIC [id number] 03:32:00 Test Item Value Reference Range Interpretation Comments PH (test code = 7.32-7.42 5887633603) PCO2 OLUIS (test code = See_Comment L [Auto mated 8382631413) message] The sy stem which generated this result transmitted reference range : 41 - 51 mmHg. The reference range was not used to interpret this result as normal/abnormal . PO2 LOUIS (test code = See_Comment [Autom ated 9006401940) message] The sy stem which generated this result transmitted reference range : 25 - 40 mmHg. The reference range was not used to interpret this result as normal/abnormal . HCO3 LOUIS (test code = See_Comment L [Auto mated 0770944971) message] The sy stem which generated this result transmitted reference range : 24 - 28 mEq/L. The reference range was not used to interpret this result as normal/abnormal . AC VBE(BEAKER) (test mEq/L code = 6781698823) LACTIC ACID (test code 1.72 mmol/L 0.5-2.2 = 0614351143) Lab Interpretation Abnormal (test code = 22272-1) [facility]OL[facility] PAN[facility] (87539)2020-03-19 01:51:00 Test Item Value Reference Range Interpretation Comments NA (test code = 141 mmol/L 135-145 5917168643) K (test code = 4.1 mmol/L 3.5-5 7541663438) CL (test code = 102 mmol/L 98-108 7578164527) CO2 TOTAL (test code = 21 mmol/L 23-31 L 4619806525) AGAP (test code = 2-16 H 6537885075) BUN (test code = 25 mg/dL 7-23 H 1881312051) GLUCOSE (test code = 160 mg/dL 70-110 H 3820213423) CREATININE (test code = 1.12 mg/dL 0.6-1.25 6548152434) TOTAL BILI (test code = 1.1 mg/dL 0.1-1.1 8184699874) CALCIUM (test code = 10.6 mg/dL 8.6-10.6 4828750172) T PROTEIN (test code = 9.4 g/dL 6.3-8.2 H 7551653711) ALBUMIN (test code = 5.1 g/dL 3.5-5 H 7623509746) ALK PHOS (test code = 108 U/L 34-122 8488869781) ALTv (test code = 121 U/L 5-50 H 1742-6) AST(SGOT) (test code = 99 U/L 13-40 H 4289419725) eGFR Calculation mL/min/1.73m2 (Non-) (test code = 3763495639) eGFR Calculation mL/min/1.73m2 () (test code = 9598731526) ЕЛЕНА (test code = ЕЛЕНА) Association of [...] tests). Lab Interpretation Abnormal (test code = 03074-7) [facility] 01:51:00 Test Item Value Reference Range Interpretation Comments LIPASE (test code = 7679846375) 66 U/L 0-220 Lab Interpretation (test code = Normal 13616-3) [facility]MAGN[facility]UM2021-01-31 01:51:00 Test Item Value Reference Range Interpretation Comments MAGNESIUM (test code = 9719003044) 1.8 mg/dL 1.7-2.4 Lab Interpretation (test code = Normal 72582-2) [facility]CB WITH [id number] 01:38:00 Test Item Value Reference Range Interpretation Comments WBC (test code = See_Comment [Automated 8690-2) message] The sy stem which generated this result transmitted reference range : 4.20 - 10.70 10*3/?L. The reference range was not used to interpret this result as normal/abnormal . RBC (test code = See_Comment [Automated 978-8) message] The sy stem which generated this [...] RDW-SD (test code = 41.2 fL 38.5-51.6 19260-9) RDW-CV (test code = 13.2 % 12.1-15.4 788-0) PLT (test code = See_Comment H [Automated 307-3) message] The sy stem which generated this result transmitted reference range : 150 - 328 10*3/ ?L. The reference r cj was not used to interpret this result as normal/abnormal . MPV (test code = 9.5 fL 9.8-13 L 14058-3) NRBC/100 WBC (test See_Comment [Automat ed code = 9992975914) message] The system which generated this result transmitted reference range : 0.0 - 10.0 /100 WBCs. The refer ence range was not u sed to interpret th is result as normal/abnormal . NRBC x10^3 (test code <0.01 See_Comment [Auto mated = 4028247311) message] The s ystem which generated this result transmitted reference range : 10*3/?L. The reference range was not used to interpret this result as normal/abnormal . GRAN MAT (NEUT) % 46.0 % (test code = 770-8) IMM GRAN % (test code 3.50 % = 4707589100) LYMPH % (test code = 37.9 % 736-9) MONO % (test code = 9.5 % 5905-5) EOS % (test code = 2.3 % 713-8) BASO % (test code = 0.8 % 706-2) GRAN MAT x10^3(ANC) 3.38 10*3/uL 1.99-6.95 (test code = 5169056035) IMM GRAN x10^3 (test 0.26 10*3/uL 0-0.06 H code = 7700597583) LYMPH x10^3 (test code 2.79 10*3/uL 1.09-3.23 = 731-0) MONO x10^3 (test code 0.70 10*3/uL 0.36-1.02 = 742-7) EOS x10^3 (test code = 0.17 10*3/uL 0.06-0.53 711-2) BASO x10^3 (test code 0.06 10*3/uL 0.01-0.09 = 704-7) Lab Interpretation Abnormal (test code = 43606-5) [facility] 1 [id number] 01:31:03No acute cardiopulmonary disease RL: 6200 AFC: [id number] End of report ORDERING CLINICIAN: STEFANY GUERRERO TECHNIQUE: Single view of the chest INDICATION: Fever COMPARISON: None DISCUSSION: The lungs are clear. The cardiac silhouette is within normal limits. The airway is midline. The mediastinal contour is normal. [facility], Radiant Results Inft User - 03/12/2020 7:32 PM CSTORDERING CLINICIAN: STEFANY DUQUEVERTECHNIQUE: Single view of the chestINDICATION: FeverCOMPARISON: NoneDISCUSSION: The lungs are clear. The cardiac silhouette is within normal limits.The airway is midline. The mediastinal contour is normal.IMPRESSIONNo acute cardiopulmonary diseaseRL: 6200AFC: 89643Wtw of report UnCH[facility]ST[facility] TylerADC,CLC OR LCC ONLY - INFLUENZA A & B DIRECT [id number] 01:15:00 Test Item Value Reference Range Interpretation Comments Influenza A (test code = 88377-1) Negative Negative Influenza B (test code = 62644-9) Negative Negative Lab Interpretation (test code = Normal 29412-5) [facility] CenterUrinalysis2021-01-25 01:03:00 Test Item Value Reference Range Interpretation Comments APPEARANCE (test code = Hazy Clear A 8027846157) COLOR (test code = Gricelda Yellow A 0912068672) PH (test code = 4.8-8.0 7075717117) SP GRAVITY (test code = 1.003-1.030 5344371696) GLU U QUAL (test code = Normal Normal 6323184020) BLOOD (test code = 2+ Negative A 9948399319) KETONES (test code = Negative Negative 7790755264) PROTEIN (test code = 500 mg/dL Negative A 2887-8) UROBILIN (test code = Normal Normal 7100993460) BILIRUBIN (test code = Negative Negative 5141617970) NITRITE (test code = Negative Negative 0921436535) LEUK BRIDGET (test code = Negative Negative 6883804774) RBC/HPF (test code = See_Comment H [Autom ated message] 8590178697) The system [employer] generated this result transmit odalys reference range : 0 - 3 HPF. The refe rence range was not u sed to interpret th is result as normal/abnormal . WBC/HPF (test code = See_Comment [Autom ated message] 4232073903) The system [employer] generated this result transmit odalys reference range : 0 - 5 HPF. The refe rence range was not u sed to interpret th is result as normal/abnormal . BACTERIA (test code = Few Negative A 4093121157) MUCOUS (test code = Slight Negative LPF A 4013203773) Lab Interpretation (test Abnormal code = 27892-3) [facility] Metabolic Panel (NA, K, CL, CO2, GLUCOSE, BUN, CREATININE, CA)2020-03-13 00:49:00 Test Item Value Reference Range Interpretation Comments NA (test code = 135 mmol/L 135-145 0429006141) K (test code = 4.0 mmol/L 3.5-5 2904143412) CL (test code = 97 mmol/L 98-108 L 6471377786) CO2 TOTAL (test code = 24 mmol/L 23-31 2063103131) AGAP (test code = 2-16 1708376101) BUN (test code = 21 mg/dL 7-23 5291680402) GLUCOSE (test code = 206 mg/dL 70-110 H 6236950977) CREATININE (test code = 1.12 mg/dL 0.6-1.25 4333215451) CALCIUM (test code = 9.8 mg/dL 8.6-10.6 0516417576) eGFR Calculation mL/min/1.73m2 (Non-) (test code = 2836319443) eGFR Calculation mL/min/1.73m2 () (test code = 6897963144) ЕЛЕНА (test code = ЕЛЕНА) Association of [...] tests). Lab Interpretation Abnormal (test code = 71816-9) [facility] CenterCOVID-[facility] (ID NOW RAPID TESTING)2020-03-13 00:49:00 Test Item Value Reference Range Interpretation Comments SARS-CoV-2 Rapid ID NOW Positive Not Detected A (test code = 41044-3) ЕЛЕНА (test code = ЕЛЕНА) ID NOW COVID-19 Assay is an isothermal nucleic acid amplification test intended for the qualitative detection of nucleic acid from SARS-CoV-2 viral RNA in nasopharyngeal (PIPE WRAPPING MACHINE OPERATOR) specimens. It is used under Emergency Use [...] indicated. Lab Interpretation Abnormal (test code = 83903-8) [facility] CenterHepatic Function Panel (ALB, T.PRO, BILI T, BU/BC, ALT, AST, ALK PHOS)2020-03-13 00:43:00 Test Item Value Reference Range Interpretation Comments TOTAL BILI (test code = 0465713214) 0.8 mg/dL 0.1-1.1 BILI UNCON (test code = 1085334576) 0.6 mg/dL 0.1-1.1 BILI CONJ (test code = 5884502664) 0.0 mg/dL 0-0.3 T PROTEIN (test code = 5492746834) 8.9 g/dL 6.3-8.2 H ALBUMIN (test code = 1019493060) 4.8 g/dL 3.5-5 ALK PHOS (test code = 3329688699) 82 U/L 34-122 ALTv (test code = 1742-6) 138 U/L 5-50 H AST(SGOT) (test code = 5919810428) 139 U/L 13-40 H Lab Interpretation (test code = Abnormal 67138-3) [facility] CenterLipase [id number] 00:42:00 Test Item Value Reference Range Interpretation Comments LIPASE (test code = 4186490761) 46 U/L 0-220 Lab Interpretation (test code = Normal 32185-6) [facility] CenterCB with [id number] 00:26:00 Test Item Value Reference Range Interpretation Comments WBC (test code = See_Comment [Automated 6732-2) message] The sy stem which generated this result transmitted reference range : 4.20 - 10.70 10*3/?L. The reference range was not used to interpret this result as normal/abnormal . RBC (test code = See_Comment [Automated 599-8) message] The sy stem which generated this [...] RDW-SD (test code = 42.4 fL 38.5-51.6 89600-6) RDW-CV (test code = 13.3 % 12.1-15.4 788-0) PLT (test code = See_Comment H [Automated 777-3) message] The sy stem which generated this result transmitted reference range : 150 - 328 10*3/ ?L. The reference r cj was not used to interpret this result as normal/abnormal . MPV (test code = 10.0 fL 9.8-13 90083-0) NRBC/100 WBC (test See_Comment [Automat ed code = 1997454856) message] The system which generated this result transmitted reference range : 0.0 - 10.0 /100 WBCs. The refer ence range was not u sed to interpret th is result as normal/abnormal . NRBC x10^3 (test code <0.01 See_Comment [Auto mated = 4020961551) message] The s ystem which generated this result transmitted reference range : 10*3/?L. The reference range was not used to interpret this result as normal/abnormal . GRAN MAT (NEUT) % 55.8 % (test code = 770-8) IMM GRAN % (test code 1.80 % = 2267736975) LYMPH % (test code = 33.1 % 736-9) MONO % (test code = 8.5 % 5905-5) EOS % (test code = 0.3 % 713-8) BASO % (test code = 0.5 % 706-2) GRAN MAT x10^3(ANC) 4.12 10*3/uL 1.99-6.95 (test code = 5765053475) IMM GRAN x10^3 (test 0.13 10*3/uL 0-0.06 H code = 4845119046) LYMPH x10^3 (test code 2.44 10*3/uL 1.09-3.23 = 731-0) MONO x10^3 (test code 0.63 10*3/uL 0.36-1.02 = 742-7) EOS x10^3 (test code = <0.03 0.06-0.53 L 711-2) BASO x10^3 (test code 0.04 10*3/uL 0.01-0.09 = 704-7) Lab Interpretation Abnormal (test code = 20389-5) [facility]
--- NOTE | 2022-08-19 03:58 | EDPHYS ---
Physician Documentation [facility] Name: Dean Rosenthal Age: 52 yrs Sex: Male : 1970 Arrival Date: 08/19/2022 Time: 02:55 Bed 15 Private MD: LITA Physician Ruben Duarte HPI: 08/19 03:47 This 52 yrs old Black Male presents to ER via Wheelchair with complaints of High Blood og Pressure, Boil, Hip Pain, Nausea. 03:47 The patient has elevated blood pressure and discovered this at home. Onset: The og symptoms/episode began/occurred 3 day(s) ago. Historical: - Allergies: 03:15 No Known Allergies; as6 - PMHx: 03:15 Arthritis; Diabetes - NIDDM; GERD; High Cholesterol; Hypertension; Osteoarthritis; as6 - PSHx: 03:15 None; as6 - Immunization history:: Client reports receiving the 2nd dose of the Covid vaccine, moderna. - Social history:: Smoking status: Reported history of juuling and/or vaping. ROS: 03:49 Constitutional: Negative for fever, chills, and weight loss, Eyes: Negative for injury, og pain, redness, and discharge, ENT: Negative for injury, pain, and discharge, Neck: Negative for injury, pain, and swelling, Cardiovascular: Negative for chest pain, palpitations, and edema, Respiratory: Negative for shortness of breath, cough, wheezing, and pleuritic chest pain, Abdomen/GI: Negative for abdominal pain, nausea, vomiting, diarrhea, and constipation, Back: Negative for injury and pain, : Negative for injury, bleeding, discharge, and swelling, Neuro: Negative for headache, weakness, numbness, tingling, and seizure, Psych: Negative for depression, anxiety, suicide ideation, homicidal ideation, and hallucinations, Allergy/Immunology: Negative for hives, rash, and allergies, Endocrine: Negative for neck swelling, polydipsia, polyuria, polyphagia, and marked weight changes, Hematologic/Lymphatic: Negative for swollen nodes, abnormal bleeding, and unusual bruising. 03:49 MS/extremity: Positive for injury or acute deformity, pain, of the left hip. 03:49 Skin: Positive for abscess. Exam: 03:49 Constitutional: This is a well developed, well nourished patient who is awake, alert, og and in no acute distress. Head/Face: Normocephalic, atraumatic. Eyes: Pupils equal round and reactive to light, extra-ocular motions intact. Lids and lashes normal. Conjunctiva and sclera are non-icteric and not injected. Cornea within normal limits. Periorbital areas with no swelling, redness, or edema. ENT: Nares patent. No nasal discharge, no septal abnormalities noted. Tympanic membranes are normal and external auditory canals are clear. Oropharynx with no redness, swelling, or masses, exudates, or evidence of obstruction, uvula midline. Mucous membranes moist. Neck: Trachea midline, no thyromegaly or masses palpated, and no cervical lymphadenopathy. Supple, full range of motion without nuchal rigidity, or vertebral point tenderness. No Meningismus. Chest/axilla: Normal chest wall appearance and motion. Nontender with no deformity. No lesions are appreciated. Respiratory: Lungs have equal breath sounds bilaterally, clear to auscultation and percussion. No rales, rhonchi or wheezes noted. No increased work of breathing, no retractions or nasal flaring. Abdomen/GI: Soft, non-tender, with normal bowel sounds. No distension or tympany. No guarding or rebound. No evidence of tenderness throughout. Back: No spinal tenderness. No costovertebral tenderness. Full range of motion. Male : Normal genitalia with no discharge or lesions. Neuro: Awake and alert, GCS 15, oriented to person, place, time, and situation. Cranial nerves II-XII grossly intact. Motor strength 5/5 in all extremities. Sensory grossly intact. Cerebellar exam normal. Normal gait. Psych: Awake, alert, with orientation to person, place and time. Behavior, mood, and affect are within normal limits. 03:49 Cardiovascular: Rate: tachycardic, actual rate is 107 bpm, Rhythm: regular, Pulses: Pulses are 4+ in bilateral radial, brachial, femoral, popliteal, posterior tibial and and dorsalis pedis arteries.. Heart sounds: normal, Edema: is not appreciated, JVD: is not appreciated. 03:49 ECG was reviewed by the Attending Physician. Vital Signs: 03:15 BP 112 / 90; Pulse 107; Resp 20 S; Temp 97.6(O); Pulse Ox 100% on R/A; Weight 122.47 kg as6 (R); Height 5 ft. 11 in. (R); Pain 10/10; 05:16 BP 118 / 71; Pulse 104; Resp 19; Pulse Ox 94% on R/A; kd3 05:42 BP 116 / 66; Pulse 104; Resp 19; Pulse Ox 95% on R/A; kd3 07:03 BP 128 / 72; Pulse 101; Resp 19; Pulse Ox 97% on R/A; kd3 03:15 Body Mass Index 37.66 (122.47 kg, 180.34 cm) as6 03:15 Pain Scale: Adult as6 MDM: 02:59 Patient medically screened. [facility] 03:51 Differential diagnosis: abscess, cellulitis, bursitis, arthritis, strain. Data [facility] reviewed: vital signs, nurses notes, lab test result(s), EKG, radiologic studies, CT scan. Consideration of Admission/Observation Escalation of care including admission/observation considered. Management of patient was discussed with the following: Hospitalist: ms thomas. I considered the following discharge prescriptions or medication management in the emergency department Medications were administered in the Emergency Department. See MAR. Test considered but Not performed: Ultrasound no usg, abscess. Care significantly affected by the following chronic conditions: Diabetes, Hypertension, arthritis, gerd, high cholesterol. 08/19 03:10 Order name: Basic Metabolic Panel; Complete Time: : [facility] 08/19 03:10 Order name: CBC with Diff; Complete Time: : [facility] 08/19 03:10 Order name: LFT's; Complete Time: :43 [facility] 08/19 03:10 Order name: Magnesium; Complete Time: :43 [facility] 08/19 03:10 Order name: NT PRO-BNP; Complete Time: 05:43 [facility] 08/19 03:10 Order name: PT-INR; Complete Time: 04:08 [facility] 08/19 03:10 Order name: Troponin HS; Complete Time: :43 [facility] 08/19 03:10 Order name: Lipase; Complete Time: :43 [facility] 08/19 03:10 Order name: Urinalysis w/ reflexes; Complete Time: 05:43 [facility] 08/19 05:30 Order name: Urinalysis w/ reflexes EDMS 08/19 03:10 Order name: XRAY Chest (1 view) [facility] 08/19 03:10 Order name: CT Abd/Pelvis - Without Contrast [facility] 08/19 03:10 Order name: EKG; Complete Time: 03:11 [facility] 08/19 05:30 Order name: NPO EDMS 08/19 03:10 Order name: Cardiac monitoring; Complete Time: 04:09 [facility] 08/19 03:10 Order name: EKG - Nurse/Tech; Complete Time: 03:28 [facility] 08/19 03:10 Order name: IV Saline Lock; Complete Time: 04:09 [facility] 08/19 03:10 Order name: Labs collected and sent; Complete Time: 04:09 [facility] 08/19 03:10 Order name: O2 Per Protocol; Complete Time: 04:09 [facility] 08/19 03:10 Order name: O2 Sat Monitoring; Complete Time: 04:09 [facility] EC:49 Rate is 103 beats/min. Rhythm is regular. QRS Burch[place] is Normal. WA interval is normal. [facility] QRS interval is normal. QT interval is normal. No Q waves. T waves are Normal. No ST changes noted. Clinical impression: NSR w/ Non-specific ST/T Changes and No evidence of ischemia. Interpreted by me. Reviewed by me. Administered Medications: 04:08 Drug: NS 0.9% IV 1000 ml Route: IV; Rate: 125 ml/hr; Site: right forearm; kd3 07:03 Follow up: IV Status: Infusion continued kd3 04:09 Drug: NS 0.9% IV 1000 ml Route: IV; Rate: 1 bolus; Site: right forearm; kd3 05:51 Follow up: IV Status: Completed infusion kd3 04:09 Drug: Ondansetron IVP 4 mg Route: IVP; Site: right antecubital; kd3 05:16 Follow up: Response: No adverse reaction kd3 04:09 Drug: Piperacillin-Tazobactam IVPB 3.375 grams Route: IVPB; Infused Over: 60 mins; kd3 Site: right forearm; 05:16 Follow up: IV Status: Completed infusion; IV Intake: 100ml kd3 04:09 Drug: morphine IVP or IV 4 mg Route: IVP; Infused Over: 4 mins; Site: right forearm; kd3 05:16 Follow up: Response: No adverse reaction kd3 05:51 Drug: Potassium PO Effervescent Tablet 25 mEq Route: PO; kd3 05:52 Follow up: Response: No adverse reaction kd3 Disposition Summary: 08/19/22 03:57 Hospitalization Ordered Hospitalization Status: Observation og Provider: Olegario Loera cha Location: Telemetry/MedSurg (observation) og Condition: Fair og Problem: new og Symptoms: have improved og Bed/Room Type: Standard og Room Assignment: 207(08/19/22 05:46) mw Diagnosis - Cutaneous abscess of groin og - Tachycardia, unspecified og - Type 2 diabetes mellitus with hyperglycemia og - Osteoarthritis of hip, unspecified og - Hypokalemia og Forms: - Medication Reconciliation Form og - SBAR form og Signatures: Dispatcher [employer] EDMS Sisi Leigh RN RN mw Anderson, Corey, MD MD cha Slawson, Ashby, RN RN as6 Sheila Akhtar RN RN kd3 Corrections: (The following items were deleted from the chart) 05:46 03:57 og
--- NOTE | 2022-08-19 03:58 | ER ---
Nurse's Notes [facility] Name: Dean Rosenthal Age: 52 yrs Sex: Male : 1970 Arrival Date: 08/19/2022 Time: 02:55 Bed 15 Private MD: Diagnosis: Cutaneous abscess of groin;Tachycardia, unspecified;Type 2 diabetes mellitus with hyperglycemia;Osteoarthritis of hip, unspecified;Hypokalemia Presentation: 08/19 03:15 Chief complaint:. Coronavirus screen: At this time, the client does not indicate any as6 symptoms associated with coronavirus-19. Ebola Screen: No symptoms or risks identified at this time. Initial Sepsis Screen: Does the patient meet any 2 criteria? No. Patient's initial sepsis screen is negative. Does the patient have a suspected source of infection? No. Patient's initial sepsis screen is negative. Risk Assessment: Do you want to hurt yourself or someone else? Patient reports no desire to harm self or others. Onset of symptoms was August 19, 2022. 03:15 Acuity: DIANNA 3 as6 03:15 Method Of Arrival: Wheelchair as6 03:29 Chief complaint: Patient states: "I have a boil and my left hip hurts". as6 Triage Assessment: 07:02 General: Appears uncomfortable, Behavior is calm, cooperative. GI: Reports nausea. kd3 Historical: - Allergies: 03:15 No Known Allergies; as6 - PMHx: 03:15 Arthritis; Diabetes - NIDDM; GERD; High Cholesterol; Hypertension; Osteoarthritis; as6 - PSHx: 03:15 None; as6 - Immunization history:: Client reports receiving the 2nd dose of the Covid vaccine, moderna. - Social history:: Smoking status: Reported history of juuling and/or vaping. Screenin:10 [facility] ED Fall Risk Assessment (Adult) History of falling in the last 3 months, kd3 including since admission No falls in past 3 months (0 pts) Confusion or Disorientation No (0 pts) Intoxicated or Sedated No (0 pts) Impaired Gait No (0 pts) Mobility Assist Device Used No (0 pt) Altered Elimination No (0 pt) Score/Fall Risk Level 0 - 2 = Low Risk Maintained a safe environment. Abuse screen: Denies threats or abuse. Denies injuries from another. Nutritional screening: No deficits noted. Tuberculosis screening: No symptoms or risk factors identified. Assessment: 04:10 General: Appears uncomfortable, Behavior is calm, cooperative. Pain: Complains of pain kd3 in left leg and left hip. Neuro: Level of Consciousness is awake, alert, obeys commands, Oriented to person, place, time, situation. Cardiovascular: Patient's skin is warm and dry. GI: Abdomen is obese. 07:02 Reassessment: Patient and/or family updated on plan of care and expected duration. Pain kd3 level reassessed. Patient is alert, oriented x 3, equal unlabored respirations, skin warm/dry/pink. Patient states feeling better. General: pt moved to hospital bed . Pain: Denies pain. Vital Signs: 03:15 BP 112 / 90; Pulse 107; Resp 20 S; Temp 97.6(O); Pulse Ox 100% on R/A; Weight 122.47 kg as6 (R); Height 5 ft. 11 in. (R); Pain 10/10; 05:16 BP 118 / 71; Pulse 104; Resp 19; Pulse Ox 94% on R/A; kd3 05:42 BP 116 / 66; Pulse 104; Resp 19; Pulse Ox 95% on R/A; kd3 07:03 BP 128 / 72; Pulse 101; Resp 19; Pulse Ox 97% on R/A; kd3 03:15 Body Mass Index 37.66 (122.47 kg, 180.34 cm) as6 03:15 Pain Scale: Adult as6 ED Course: 02:58 Patient arrived in ED. ja2 02:59 Ruben Duarte MD is Attending Physician. og 03:08 Sheila Akhtar, RN is Primary Nurse. kd3 03:15 Arm band placed on. as6 03:22 Triage completed. as6 03:37 XRAY Chest (1 view) In Process Unspecified. EDMS 03:54 Olegario Loera is Hospitalizing Provider. og 03:57 CT Abd/Pelvis - Without Contrast In Process Unspecified. EDMS 04:09 Basic Metabolic Panel Sent. kd3 04:09 CBC with Diff Sent. kd3 04:09 LFT's Sent. kd3 04:09 Magnesium Sent. kd3 04:09 NT PRO-BNP Sent. kd3 04:09 Troponin HS Sent. kd3 04:09 Lipase Sent. kd3 04:10 Patient has correct armband on for positive identification. Bed in low position. Side kd3 rails up X2. 08:17 No provider procedures requiring assistance completed. Patient admitted, IV remains in bp place. Administered Medications: 04:08 Drug: NS 0.9% IV 1000 ml Route: IV; Rate: 125 ml/hr; Site: right forearm; kd3 07:03 Follow up: IV Status: Infusion continued kd3 04:09 Drug: NS 0.9% IV 1000 ml Route: IV; Rate: 1 bolus; Site: right forearm; kd3 05:51 Follow up: IV Status: Completed infusion kd3 04:09 Drug: Ondansetron IVP 4 mg Route: IVP; Site: right antecubital; kd3 05:16 Follow up: Response: No adverse reaction kd3 04:09 Drug: Piperacillin-Tazobactam IVPB 3.375 grams Route: IVPB; Infused Over: 60 mins; kd3 Site: right forearm; 05:16 Follow up: IV Status: Completed infusion; IV Intake: 100ml kd3 04:09 Drug: morphine IVP or IV 4 mg Route: IVP; Infused Over: 4 mins; Site: right forearm; kd3 05:16 Follow up: Response: No adverse reaction kd3 05:51 Drug: Potassium PO Effervescent Tablet 25 mEq Route: PO; kd3 05:52 Follow up: Response: No adverse reaction kd3 Medication: 04:10 VIS not applicable for this client. kd3 Intake: 05:16 IV: 100ml; Total: 100ml. kd3 Outcome: 03:57 Decision to Hospitalize by Provider. og 08:00 Admitted to Med/surg accompanied by tech, via stretcher, room 207, Report called to bp NICHOL HOOD 08:00 Condition: stable 08:00 Instructed on the need for admit. 08:07 Patient left the ED. zm Signatures: Dispatcher [employer] EDRuben Hahn MD MD cha Peltier, Brian, RN RN Roxanna Bustamante Ashby, SANA RN as6 Sheila Akhtar RN RN darian3 Ute Flores
[2022-08-19] MEDS ORDERED: ONDANSETRON 4 MG/2 ML VIAL ONE ×2 (04:00→14:19)
[2022-08-19] MEDS ORDERED: MORPHINE 4 MG/ML SYR ONE (04:00)
[2022-08-19] MEDS ORDERED: NA CHLORIDE 0.9% 2,000 ML ONE (04:01)
[2022-08-19] MEDS ORDERED: NA CHLORIDE 0.9% 100 ML ONE (04:01)
[2022-08-19] MEDS ORDERED: PIPERACIL/TAZO 3.375 GM VIAL IV ONE (04:01)
[2022-08-19 04:02] LABS: Protime INR 0.95
[2022-08-19 04:03] LABS: Absolute Lymphocytes (CBC) 3.3 K/uL (0.7-4.9); Hematocrit 42.5 % (39.6-49.0); Lymphocytes % 36.1 % (15.3-44.8); MCV 86.9 fL (80-100); MPV 8.8 fL (7.6-11.3); RBC Red Blood Cell Count 4.88 M/uL (4.33-5.43)
[2022-08-19 04:19] LABS: Albumin 3.7 g/dL (3.4-5.0); Bilirubin Direct 0.2 mg/dL (0-0.2); Bilirubin Indirect, Calculated 0.4 mg/dL (0.2-0.8); Bilirubin Total 0.6 mg/dL (0.2-1.0); Magnesium 1.7 mg/dL (1.6-2.4); Potassium 3.2 mEq/L (3.5-5.1); Protein, Total 8.1 g/dL (6.4-8.2); Troponin High Sensitivity 26.2 pg/mL (<58.9)
[2022-08-19 04:37] LABS: Specific Gravity 1.029 (1.005-1.030); Urine Bacteria <20 /HPF (<20); Urine Bilirubin NEGATIVE (Negative); Urine Blood Negative (Negative); Urine Clarity Turbid (Clear); Urine Color Yellow (Yellow); Urine Glucose 4+ (Negative); Urine Mucus 3+ /HPF (None Seen); Urine Protein 2+ (Negative); Urine RBC <5 /HPF (None Seen); Urine Urobilinogen 1+ (Normal)
--- NOTE | 2022-08-19 05:24 | P.HP ---
Certification for Inpatient With expected LOS: <2 Midnights Patient will require the following post-hospital care: None Practitioner: I am a practitioner with admitting privileges, knowledge of patient current condition, hospital course, and medical plan of care. Services: Services provided to patient in accordance with Admission requirements found in Title 42 Section 412.3 of the Code of Federal Regulations Patient History Date of Service: 08/19/22 Reason for admission: boil History of Present Illness: 52 yrs old AA with past medical history of HLD HTN, DM, chronic pain, arthritis presents to ER for boil. he reports boil started 4-5 days ago, is progressively getting worse. He reports pain with sitting. He report he had a similar episode 1-2 years ago, was seen in ER. He reports Bilateral hip pain that is chronic, he sees pain management for and takes Tylenol #4 He report he is a diabetic and has not checked his BG in several days. He denies fever, chills, chest pain, shortness of breath. Allergies No Known Allergies Allergy (Unverified 08/25/21 07:29) Home Medications: Albuterol Inhaler [Ventolin Inhaler*] 2 puff IH Q6H PRN 08/26/21 Atorvastatin Calcium [Lipitor] 40 mg PO BEDTIME 08/26/21 Clotrimazole/Betamethasone Dip [Clotrimazole-Betamethasone Crm] 1 appl TOP BID 08/26/21 Cyclobenzaprine [Flexeril*] 10 mg PO TID PRN 08/26/21 Empagliflozin [Jardiance] 25 mg PO AC 08/26/21 Insulin Aspart [Novolog Flexpen] 10 units SQ TIDWM 08/26/21 Insulin Glargine,Hum.rec.anlog [Toujeo Solostar] 50 units SQ AC 08/26/21 Lisinopril [Zestril] 10 mg PO DAILY 08/26/21 Meloxicam [Mobic*] 7.5 mg PO DAILY 08/26/21 Metformin HCl [Glucophage*] 1,000 mg PO BID 08/26/21 Montelukast [Singulair*] 10 mg PO BEDTIME 08/26/21 Pantoprazole [Protonix Tab*] 40 mg PO DAILY 08/26/21 Pregabalin [Lyrica*] 75 mg PO BID 08/26/21 Semaglutide [Ozempic] 1 mg SQ Q7D 08/26/21 Suvorexant [Belsomra] 15 mg PO BEDTIME PRN 08/26/21 Hydrocodone 7.5/APAP 325 [[place] 7.5/325 mg] 1 tab PO Q6H PRN #30 tab 08/28/21 levoFLOXacin [Levaquin] 500 mg PO DAILY #7 tab 08/28/21 metroNIDAZOLE [Flagyl] 500 mg PO Q8H #20 tablet 08/28/21 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 - Family History Mother -: Diabetes - Social History Alcohol use: No CD- Drugs: No Caffeine use: No Review of Systems General: As per HPI Physical Examination - Physical Exam General: Alert, In no apparent distress, Oriented x3 HEENT: Atraumatic, Normocephalic Neck: Supple, 2+ carotid pulse no bruit Respiratory: Clear to auscultation bilaterally, Normal air movement Cardiovascular: No edema, Normal pulses, Normal S1 S2 Capillary refill: <2 Seconds Gastrointestinal: Normal bowel sounds Musculoskeletal: No clubbing, No swelling Integumentary: Other (Cutaneous abscess of groin, edema, tender to touch) Neurological: Normal speech, Sensation intact - Studies Laboratory Data (last 24 hrs) 08/19/22 03:37: PT 10.4, INR 0.95 08/19/22 03:37: WBC 9.20, Hgb 14.1, Hct 42.5, Plt Count 356 08/19/22 03:37: Sodium 135 L, Potassium 3.2 L, BUN 16, Creatinine 1.05, Glucose 232 H, Magnesium 1.7, Total Bilirubin 0.6, AST 66 H, ALT 71 H, Alkaline Phosphatase 67, Lipase 26 Assessment and Plan - Plan Assessment/Plan Cutaneous abscess of groin Tachycardia, unspecified og Type 2 diabetes mellitus with hyperglycemia og Osteoarthritis of hip Assessment/Plan admit to obs Cutaneous abscess of groin-surg consult ID Tachycardia, tele, EKG Type 2 diabetes mellitus with hyperglycemia -AC achs, SSI when tolerating PO Osteoarthritis of hip-prn analgesics Diet NPO Full code DVT SCD Discharge Plan: Home - Advance Directives Does patient have a Living Will: No Does patient have a Durable POA for Healthcare: No - Code Status/Comfort Care Code Status: Full Code Physician Review: Patient Assessed, Agree with Above Assessment and Plan Critical Care: Yes Time Spent Managing Pts Care (In Minutes): 55
[2022-08-19] MEDS ORDERED: ACETAMINOPHEN 500 MG TAB PO PRN (05:25)
[2022-08-19] MEDS ORDERED: POTASSIUM 25 MEQ EFFERV TAB PO ONE ×2 (05:32→21:00)
[2022-08-19] MEDS ORDERED: POTASSIUM 25 MEQ EFFERV TAB ONE (05:54)
[2022-08-19 08:40] VITALS: BMI 37.6
[2022-08-19] MEDS: MORPHINE 2 MG/ML SYR IV PRN ×4 (08:49→23:00)
[2022-08-19] MEDS ORDERED: PIPER TAZO 3.375 GM in NA CHLORIDE 0.9% 100 ML IV SCH (09:00)
[2022-08-19] MEDS ORDERED: ONDANSETRON 4 MG/2 ML VIAL IV PRN (10:00)
--- NOTE | 2022-08-19 11:40 | RAD REPORT ---
EXAM DESCRIPTION: CT - Abdomen Pelvis Wo Contrast - 08/19/2022 6:27 am CLINICAL HISTORY: The patient is 52 years old and is Male; Abd pain;Abdominal distention TECHNIQUE: Axial computed tomography images of the abdomen and pelvis without intravenous contrast. Sagittal and coronal reformatted images were created and reviewed. This CT exam was performed usi ng one or more of the following dose reduction techniques: automated exposure control, adjustment o f the mA and/or kV according to patient size, and/or use of iterative reconstruction technique. COMPARISON: CT the abdomen and pelvis July 26, 2021 FINDINGS: LUNG BASES: Unremarkable. No mass. No consolidation. ABDOMEN: LIVER: The liver is diffusely fatty and enlarged. GALLBLADDER AND BILE DUCTS: The gallbladder is distended. No calcified gallstones or ductal dilat ation is seen. PANCREAS: Unremarkable. No ductal dilation. SPLEEN: Unremarkable. ADRENALS: Unremarkable. No mass. KIDNEYS AND URETERS: No obstructing stones. No hydronephrosis. No perinephric fluid. STOMACH AND BOWEL: The stomach is minimally filled with fluid. The small bowel is normal in calib er. Stool is present throughout colon. A few scattered colonic diverticula are noted without surround ing inflammation. There is no mucosal thickening or evidence of obstruction. PELVIS: APPENDIX: The appendix is normal in caliber without surrounding inflammation. BLADDER: The bladder is moderately distended. No stones. REPRODUCTIVE: Unremarkable as visualized. ABDOMEN and PELVIS: INTRAPERITONEAL SPACE: Unremarkable. No free air. No significant fluid collection. BONES/JOINTS: Multilevel degenerative change of the spine is present. Bilateral hip joint space narrowing with subchondral cyst formation and sclerosis is present. SOFT TISSUES: There are small bilateral fat containing inguinal hernias. A moderate-sized fat-c ontaining umbilical hernia is present. VASCULATURE: Unremarkable. No abdominal aortic aneurysm. LYMPH NODES: Unremarkable. No enlarged lymph nodes. IMPRESSION: 1. No acute findings on this noncontrasted CT of the abdomen and pelvis to explain the patient's symptoms. 2. Colonic diverticulosis. 3. Hepatomegaly and hepatic steatosis. Electronically signed by: Gabi Dent MD 08/19/2022 4:17 AM CDT Due to temporary technical issues with the PACS/Fluency reporting system, reports are being signed by the in house radiologist without review as a courtesy to ensure prompt reporting. The interpreting r adiologist is fully responsible for the content of the report.
[2022-08-19] MEDS: KCL 20 MEQ/100 mL IVPB 20 MEQ/100 ML BAG IV SCH ×2 (13:00→15:00)
[2022-08-19] MEDS: INSULIN -REGULAR HUMAN 50 UNIT/0.5 ML ML SQ SCH ×3 (13:02→21:14)
--- NOTE | 2022-08-19 13:26 | RAD REPORT ---
EXAM DESCRIPTION: RAD - Chest Single View - 08/19/2022 3:35 am CLINICAL HISTORY: The patient is 52 years old and is Male; ABDOMINAL DISTENTION TECHNIQUE: Frontal view of the chest. COMPARISON: No relevant prior studies available. FINDINGS: Lungs: Unremarkable. No consolidation. Pleural space: Unremarkable. No pneumothorax. Heart: Unremarkable. Mediastinum: Unremarkable. Bones/joints: Unremarkable. IMPRESSION: No acute findings in the chest. Electronically signed by: Mark Cabello MD 08/19/2022 3:46 AM CDT Due to temporary technical issues with the PACS/Fluency reporting system, reports are being signed by the in house radiologist without review as a courtesy to ensure prompt reporting. The interpreting r adiologist is fully responsible for the content of the report.
[2022-08-19] MEDS ORDERED: NA CHLORIDE 0.9% 1,000 ML ONE (13:45)
[2022-08-19] MEDS ORDERED: BUPIVACAINE 0.25% PF 10 ML VIAL ONE (13:47)
[2022-08-19] MEDS ORDERED: LIDOCAINE HCL/EPINEPHRINE 20 ML MDV ONE (13:47)
[2022-08-19] MEDS ORDERED: LIDOCAINE 2% MPF 5 ML VIAL ONE (14:19)
[2022-08-19] MEDS ORDERED: KETOROLAC 30 MG/ML INJ ONE (14:19)
[2022-08-19] MEDS ORDERED: FENTANYL CITR 100 MCG/2 ML ONE (14:19)
[2022-08-19] MEDS ORDERED: propofoL 200 MG/20 ML VIAL IV ONE (14:19)
[2022-08-19] MEDS ORDERED: MIDAZOLAM HCL 2 MG/2 ML INJ ONE (14:19)
--- NOTE | 2022-08-19 14:20 | P.PN ---
Date of Service: 08/19/22 Patient seen and examined. He is evaluated by Dr. Ramirez who is planning I&D today. Patient may double antibiotic coverage. We will change antibiotic to cefepime and Vanco. Follow deep tissue wound culture.
--- NOTE | 2022-08-19 15:12 | P.OP ---
Preoperative diagnosis: RIGHT Gluteal Abscess Postoperative diagnosis: RIGHT Gluteal Abscess Primary procedure: Incision, Drainage, and Debridement of RIGHT Gluteal Abscess Anesthesia: GETA + Local Estimated blood loss: <10cc Specimen: Cultures Findings: ~ 3cm multiloculated abscess of RIGHT buttock Complications: None Transferred to: Recovery Room Condition: Good
[2022-08-19] MEDS ORDERED: HYDROCODONE/APAP 5/325 MG TAB PO PRN (15:25)
[2022-08-19] MEDS: VANCOMYCIN 2 GM in NA CHLORIDE 0.9% 500 ML IVPB SCH (17:46)
--- NOTE | 2022-08-19 18:31 | CON ---
Date of Consultation: 08/19/2022 Brief History Of Present Illness: The patient is a 52-year-old man, who presents to the hospital wit h a 3-day history of worsening pain, tenderness in the right buttock area where he thought there was a boil. He noted that the area got significantly more tender or painful and has significantly worsen ed and as such, he came to the emergency room with the above complaints. Past Medical History: Significant for diabetes, GERD, high cholesterol, hypertension, osteoarthritis . Past Surgical History: Denies. Social History: He does use Juul/vaping. He drinks alcohol socially. Denies recreational drug use. Review of Systems: Ten-point review of systems other than HPI, he denies. Physical Examination: General: At the time of my examination; he is alert, oriented. Psychiatric: Appropriate, conversive. HEENT: Normocephalic. Sclerae anicteric. Mucous membranes are moist. Oropharynx is clear. Neck: Supple without JVD. Chest: Expansion and excursion. Cardiovascular: Regular rate and rhythm. Pulmonary: Clear to auscultation bilaterally. Abdomen: Soft. Extremities: Focused examination, he had area of fullness and induration consistent with an infected abscess of the right buttock/upper leg area consistent with abscess/infection with surrounding cellu litis. Vital Signs: At the time of my examination; blood pressure 117/70, pulse 99, respiratory rate 19, te mperature 97.5, SpO2 95% on room air. Laboratory Data: His white blood cell count is 9.2, hemoglobin is 14.1, hematocrit 42.5, platelet co unt was 356, neutrophils 51%. His PT 10.5, INR 0.95. Sodium 135, potassium , chloride 102 , carbon dioxide is 24, BUN 16, creatinine 1.05, glucose is 232. His lipase is 26. His UA showed 4+ glucose, 1+ urobilin, 5-10 , 2+ protein. His CT scan of the abdomen and pelvis was offici ally read as small bilateral fat containing inguinal hernias, moderate size containing umbilical salvatore ia present, colonic diverticulosis, hepatomegaly, and hepatic steatosis. Assessment And Plan: This is a 52-year-old male, who comes in with signs and symptoms of right glute al, buttock abscess. 1.IV fluid hydration. 2.Antibiotic coverage. 3.I explained risks, benefits, alternatives of drainage and debridement of an infected right buttock abscess/cyst including, but not limited to bleeding, infection, damage to surrounding tissue, need f or further operation and procedures, ongoing wound care, perioperative complication related to anesth etic and surgical including blood clot, strokes, heart attacks, and other unforeseen complications. The patient agrees to proceed as indicated. VALENCIA/VALENTÍN Voice ID: [id number] Report ID: [id number]
--- NOTE | 2022-08-19 18:37 | OP ---
Date of Procedure: 08/19/2022 Surgeon: Heber Ramirez MD, Preoperative Diagnosis: Right gluteal abscess. Postoperative Diagnosis: Right gluteal abscess. Procedure Performed: Incision, drainage, and debridement of right gluteal abscess. Anesthesia: General endotracheal plus local with 0.25% Marcaine. Estimated Blood Loss: Less than 10 cc. Specimen: Culture sent for aerobic and anaerobic speciation. Findings: Approximately 3 cm multiloculated abscess of the right buttock with necrotic tissue. Complications: None. Disposition: Patient transferred to recovery room in good condition. Procedure In Detail: After informed consent was obtained, patient was brought to the operating room, prepped and draped in the usual sterile fashion. After adequate anesthesia was achieved, I made a l inear incision overlying the right buttock down to approximately 3.5 to 4 cm in size. We immediately encountered abscess type material. This was sent for culture, both aerobic and anaerobic speciation . I then digitized the entire area, found that there to be multiloculated abscess was in this area, which were completely broken up. Loculations were broken up and marsupialized. At this point, I rem connor all necrotic tissue using a combination of sharp dissection, electrocautery, and curette. I the n irrigated the area copiously, achieved hemostasis easily with electrocautery. I then packed the wo und with Vashe-soaked dressing and a sterile dressing placed over top. The patient tolerated the pro cedure well without evidence of complication and transferred to PACU in good condition. All counts were correct at the end of the ca se. VALENCIA/MODL Voice ID: [id number] Report ID: [id number]
--- NOTE | 2022-08-19 19:29 | EKG ---
Test Date: 2022-08-19 Test Time: 03:24:38 Geospatial Technologist: LAURO MEASUREMENT RESULTS: Intervals: Rate: 103 ND: 176 QRSD: 92 QT: 362 QTc: 474 [place]: P: 48 ND: 176 QRS: 2 T: 55 INTERPRETIVE STATEMENTS: Sinus tachycardia Inferior infarct, age undetermined Abnormal ECG Compared to ECG 08/25/2021 02:45:49 Sinus rhythm no longer present Myocardial infarct finding still present Electronically Signed On 08-19-22 19:28:24 CDT by Nimesh Saleem
[2022-08-19] MEDS ORDERED: MAGNESIUM SULFATE 1 gm IVPB 1 GM/100 ML BAG IV ONE (21:00)
[2022-08-19] MEDS: CEFEPIME 1 GM in NA CHLORIDE 0.9% 100 ML IV SCH (21:13)
[2022-08-19 22:23] VITALS: O2SAT 95
[2022-08-20] MEDS: VANCOMYCIN 2 GM in NA CHLORIDE 0.9% 500 ML IVPB SCH (02:22)
[2022-08-20 04:19] LABS: Potassium 3.9 mEq/L (3.5-5.1)
[2022-08-20] MEDS ORDERED: POTASSIUM CL SA 10 MEQ TAB PO ONE (06:00)
[2022-08-20] MEDS: MORPHINE 2 MG/ML SYR IV PRN (06:09)
--- NOTE | 2022-08-20 07:03 | P.PN ---
Date of Service: 08/20/22 Subjective: tender/pain around abscess, ~same as yesterday no new / worsening problems afebrile ROS: 10 point ROS as noted above, otherwise negative Physical Exam: GEN: Alert, oriented, NAD HEENT: Normal conjunctiva, sclera anicteric CV: Regular rate and rhythm, no edema Pulm: Nonlabored respirations on room air ABD: Soft, nontender, nondistended MSK: No joint tenderness Integumentary: Right Gluteal Abscess, tender, erythematous Neuro: Normal speech, normal affect vitals reviewed Problem List: Right Gluteal Abscess, now s/p I&D (08/19) DM2 with hyperglycemia Osteoarthritis of hip Right Gluteal Abscess, now s/p I&D (08/19) General Surgery consulted s/p I&D with Dr. Ramirez 08/19 daily dressing changes Wound cultures: pending Continue Vanc and Cefepime (08/19-) PRN pain meds DM2 with hyperglycemia sliding scale insulin Code: Full Dispo: Home with home health
[2022-08-20] MEDS ORDERED: PNEUMOCOCCAL VACCINE 0.5 ML IMVAC ONE (08:00)
[2022-08-20 08:06] VITALS: TEMP 98.5
[2022-08-20] MEDS: INSULIN -REGULAR HUMAN 50 UNIT/0.5 ML ML SQ SCH (08:27)
[2022-08-20] MEDS: CEFEPIME 1 GM in NA CHLORIDE 0.9% 100 ML IV SCH (08:28)
--- NOTE | 2022-08-20 09:40 | P.DS ---
Admission Date: 08/19/22 Discharge Date: 08/20/22 Disposition: ROUTINE DISCHARGE Discharge Condition: GOOD Reason for Admission: boil Consultations: General surgery - Dr. Ramirez Brief History of Present Illness: 52 yo M, PMH: HLD HTN, DM, chronic pain, arthritis Patient presents to ER for boil. he reports boil started 4-5 days ago, is progressively getting worse. He reports pain with sitting. He report he had a similar episode 1-2 years ago, was seen in ER. He reports Bilateral hip pain that is chronic, he sees pain management for and takes Tylenol #4 He report he is a diabetic and has not checked his BG in several days. He denies fever, chills, chest pain, shortness of breath. Hospital Course: Problem List: Right Gluteal Abscess, now s/p I&D (08/19) DM2 with hyperglycemia Osteoarthritis of hip Patient presented with a Right Gluteal Abscess. General Surgery (Dr. Ramirez) was consulted and performed and I&D of the 3cm multiloculated abscess of right buttocks. Wound cultures were pending at time of discharge. He is to complete a 10 day course of bactrim and follow up with Dr. Ramirez. Patient was monitored overnight, remained afebrile with no leukocytosis, and was deemed stable for discharge. Daily dressing changes as instructed by Dr. Ramirez. continue other home medications as previously prescribed New / change in prescriptions: Bactrim twice daily for 10 days [place] for pain as needed Follow up: PCP 3-5 days General surgery - Dr. Ramirez as discussed in ~1-[address] Ramirez's office if needing further pain medication Physical Exam: GEN: Alert, oriented, NAD HEENT: Normal conjunctiva, sclera anicteric CV: Regular rate and rhythm, no edema Pulm: Nonlabored respirations on room air ABD: Soft, nontender, nondistended Integumentary: Right Gluteal Abscess, tender; dressing in place Vital Signs/Physical Exam: Temp Pulse Resp BP Pulse Ox 98.5 F 98 H 18 108/68 97 08/20/22 08:00 08/20/22 08:00 08/20/22 08:00 08/20/22 08:00 08/20/22 08:00 Laboratory Data at Discharge: WBC 9.20 thou/uL (4.3-10.9) 08/19/22 03:37 Hgb 14.1 g/dL (13.6-17.9) 08/19/22 03:37 Hct 42.5 % (39.6-49.0) 08/19/22 03:37 Plt Count 356 thou/uL (152-406) 08/19/22 03:37 PT 10.4 SECONDS (9.5-12.5) 08/19/22 03:37 INR 0.95 08/19/22 03:37 Sodium 139 mEq/L (136-145) 08/20/22 02:52 Potassium 3.9 mEq/L (3.5-5.1) D 08/20/22 02:52 BUN 13 mg/dL (7-18) 08/20/22 02:52 Creatinine 1.05 mg/dL (0.70-1.30) 08/20/22 02:52 Glucose 235 mg/dL (74-106) H 08/20/22 02:52 Magnesium 2.2 mg/dL (1.6-2.4) 08/20/22 02:52 Total Bilirubin 0.6 mg/dL (0.2-1.0) 08/19/22 03:37 AST 66 U/L (15-37) H 08/19/22 03:37 ALT 71 U/L (16-61) H 08/19/22 03:37 Alkaline Phosphatase 67 U/L (45-117) 08/19/22 03:37 Lipase 26 U/L (13-75) 08/19/22 03:37 Home Medications: Albuterol Inhaler [Ventolin Inhaler*] 2 puff IH Q6H PRN 08/26/21 Atorvastatin Calcium [Lipitor] 40 mg PO BEDTIME 08/26/21 Clotrimazole/Betamethasone Dip [Clotrimazole-Betamethasone Crm] 1 appl TOP BID 08/26/21 Cyclobenzaprine [Flexeril*] 10 mg PO TID PRN 08/26/21 Empagliflozin [Jardiance] 25 mg PO AC 08/26/21 Insulin Aspart [Novolog Flexpen] 10 units SQ TIDWM 08/26/21 Insulin Glargine,Hum.rec.anlog [Toujeo Solostar] 50 units SQ AC 08/26/21 Lisinopril [Zestril] 10 mg PO DAILY 08/26/21 Meloxicam [Mobic*] 7.5 mg PO DAILY 08/26/21 Metformin HCl [Glucophage*] 1,000 mg PO BID 08/26/21 Montelukast [Singulair*] 10 mg PO BEDTIME 08/26/21 Pantoprazole [Protonix Tab*] 40 mg PO DAILY 08/26/21 Pregabalin [Lyrica*] 75 mg PO BID 08/26/21 Semaglutide [Ozempic] 1 mg SQ Q7D 08/26/21 Suvorexant [Belsomra] 15 mg PO BEDTIME PRN 08/26/21 Hydrocodone 7.5/APAP 325 [[place] 7.5/325 mg] 1 tab PO Q6H PRN #30 tab 08/28/21 levoFLOXacin [Levaquin] 500 mg PO DAILY #7 tab 08/28/21 metroNIDAZOLE [Flagyl] 500 mg PO Q8H #20 tablet 08/28/21 Hydrocodone 5/APAP 325 [[place] 5/325*] 1 tab PO Q6H PRN #15 tab 08/20/22 Smz./Tmp. [Bactrim Ds 800 MG/160 MG] 2 tab PO BID 10 Days #40 tab 08/20/22 New Medications: Smz./Tmp. [Bactrim Ds 800 MG/160 MG] 2 tab PO BID 10 Days #40 tab Hydrocodone 5/APAP 325 [[place] 5/325*] 1 tab PO Q6H PRN #15 tab PRN Reason: Pain Scale 5-7 (Moderate) Physician Discharge Instructions: Patient presented with a Right Gluteal Abscess. General Surgery (Dr. Ramirez) was consulted and performed and I&D of the 3cm multiloculated abscess of right buttocks. Wound cultures were pending at time of discharge. He is to complete a 10 day course of bactrim and follow up with Dr. Ramirez. Patient was monitored overnight, remained afebrile with no leukocytosis, and was deemed stable for discharge. Daily dressing changes as instructed by Dr. Ramirez. continue other home medications as previously prescribed New / change in prescriptions: Bactrim twice daily for 10 days [place] for pain as needed Follow up: PCP 3-5 days General surgery - Dr. Ramirez as discussed in ~1-[address] Ramirez's office if needing further pain medication Diet: Regular Activity: Ad gila Followup: Heber Ramirez MD [ACTIVE - CAN ADMIT] - 1 Week (Please call to schedule an appointment. ) Time spent managing pt's care (in minutes): 45
[2022-08-20 13:25] VITALS: BP 133/84
== END 2022-08-20 11:59 | disposition home or self-care (01) ==
LOC: ER 02:55 → ERHOLD 05:25 → 2ND 05:48
PROVIDERS: ADMIT Internal Medicine; ATTEND Hospitalist
PROC: 0JD93ZZ Extraction of Buttock Subcutaneous Tissue and Fascia, Percutaneous Approach (ICD-10-PCS; 2022-08-19)
PROC: 0J990ZX Drainage of Buttock Subcutaneous Tissue and Fascia, Open Approach, Diagnostic (ICD-10-PCS; principal; 2022-08-19 16:45)
DX: L02.31 Cutaneous abscess of buttock (principal); I10 Essential (primary) hypertension; E78.5 Hyperlipidemia, unspecified; M19.90 Unspecified osteoarthritis, unspecified site; M16.9 Osteoarthritis of hip, unspecified; R00.0 Tachycardia, unspecified; F17.290 Nicotine dependence, other tobacco product, uncomplicated; E11.65 Type 2 diabetes mellitus with hyperglycemia
CPT/HCPCS: 93005; 87070; 85025; 81001; 80048 ×2; 36415 ×2; 83735 ×2; 87205; 85610; 82947 ×6; 80076; 87075; 84484; 83690; 83880; 74176; 71045; 99285; 10060; 11042; J1815 ×4; J3475; J2704; J2543 ×2; J2001; J2250; J3010; J2270 ×6; J2405 ×2; J7040; J7030 ×2; J0692 ×2; G0378

== ENCOUNTER 2022-12-02 22:50 | Emergency (ER) | payer BC ==
--- OUTSIDE RECORDS SUMMARY | 2022-12-02 22:57 | XMS REPORT | Continuity of Care Document ---
:1970 Author Organization [facility] t Address [address] [place] [address] Care Team Providers Name Role Phone Mick Myles Primary Care Physician Matilde Rodney Attending Clinician Unavailable NUZHAT YADAV Attending Clinician Unavailable Solis Clements Attending Clinician Unavailable NATASHA_Tyree_Nadira Attending Clinician Unavailable NADIYA CHURCHILL Attending Clinician Unavailable Nadiya Churchill DO Attending Clinician Junaid Medina MD Attending Clinician Doctor Unassigned, [place] Attending Clinician Unavailable Tyrone_Solitario Attending Clinician Unavailable Nuzhat Yadav MD Attending Clinician Deisy Rangel MD Attending Clinician Ai WEST, Mark Paul Attending Clinician [phone] Radha Bradshaw Attending Clinician SAUL MCFARLAND Attending Clinician Unavailable Nurse, [facility] Attending Clinician Unavailable Saul Henriquez Attending Clinician Therapy, [facility] Attending Clinician Unavailable Stefany Guerrero NP Attending Clinician STEFANY GUERRERO Attending Clinician Unavailable Debby Ambriz Attending Clinician NUZHAT YADAV Admitting Clinician Unavailable Solis Clements Admitting Clinician Unavailable NATASHA_Tyree_Solis_ Admitting Clinician Unavailable Tyrone_Solitario Admitting Clinician Unavailable STEFANY GUERRERO Admitting Clinician Unavailable Payers Payer Name Policy Type Policy Effective Date Expiration Date Sour ce Number [employer] [id number] 2020 00:00:00 BCBS PPO POS EPO [id number] 2020 [place] 00:00:00 [place] [id number] 2021 [place] [id number] 2021 2022 [place] - [employer] 00:00:00 00:00:00 (POS) Blue Cross Blue 6 [id number] 2020 Common [employer] of [place] 00:00:00 [facility] Problems Condition Condition Condition Status Onset Resolution Last Treating Co mments Source Name Details Category Date Date Treatment Clinician Date Cellulitis Cellulitis Disease Active C [facility] of of 6- [facility] perineum perineum 00:00: Medica l Center Abdominal Abdominal Disease Active Uni vers pain pain 2-07 ity of 00:00: [address] Branch Obesity Obesity Disease Active Univers (BMI (BMI 2-06 ity of 30-39.9) 30-39.9) 00:00: [address] [id number] Mixed Problem Common hyperlipid Spirit emia - [facility] [id number] Essential Problem Comm on hypertensi Spirit on - [facility] [id number] Type 2 Problem Common diabetes Spirit mellitus - [facility] with [facility] long-term current use of insulin [id number] Rheumatoid Problem Co mmon arthritis Spirit involving - [facility] multiple [facility] unspecifie Medica l d whether Center rheumatoid factor present [id number] Noncomplia Problem Comm on nce Spirit - [facility] [id number] Insomnia, Problem Com mon unspecifie Spirit d type - [facility] [id number] Cutaneous Problem Comm on abscess of Spirit buttock - [facility] [id number] Primary Problem Comm on osteoarthr Spirit itis of - [facility] left hip [facility] [id number] Primary Problem Comm on osteoarthr Spirit itis of - [facility] right hip [facility] No known No known Disease Unive rs active active ity of problems problems [facility] Allergies, Adverse Reactions, Alerts Allergy Allergy Status Severity Reaction(s) Onset Inactive Treating Comm ents Source Name Type Date Date Clinician No Known DA Active U [facility] Allergie 10-22 [facility] 00:00: [address] NO KNOWN Allergy Active [facility] NO KNOWN Drug Active [facility] ALLERGIE Class [facility] [place] Social History Social Habit Start Date Stop Date Quantity Comments Source History of Tobacco Common Spirit - Use [facility] Exposure to Yes University of SARS-CoV-2 (event) [facility] Gender identity Universit y [facility] Sexual orientation Univer [facility] History of Social 2022-09-12 2022-09-12 Univers ity of function 00:00:00 00:00:00 [facility] Tobacco use and 2020-03-26 2020-03-26 Former smokeless Uni versity of exposure 00:00:00 00:00:00 tobacco user [place] [facility] Sex Assigned At [address] 1970 [facility] 00:00:00 00:00:00 [facility] Center Smoking Status Start Date Stop Date Source Never Smoker [facility] - [facility] nter Ex-smoker 2020-03-26 00:00:00 2020-03-26 00:00:00 Universi ty [facility] Unknown if ever smoked [facility] y [facility] Medications Ordered Filled Start Stop Current Ordering Indication Dosage Frequency Signature Comments Components Source Medication Medication Date Date Medication? Clinician (SIG) Name Name NaCl 0.9% 2022- No 1000mL at 999 Uni vers (NS) bolus 09-12 mL/hr, ity of infusion 15:30: 16:26 1,000 mL, [place] as 1,000 mL 00 :00 IV Medical Infusion, Branch ONCE, 1 dose, On [facility] 09/12/22 at 1030, KACY dicyclomine 2022- No 20mg 20 mg, Uni vers (BENTYL) 09-12 Oral, ity of tablet 20 14:30: 14:34 ONCE, 1 [place] mg 00 :00 dose, On Medical [facility] Branch 09/12/22 at 0930, KACY NaCl 0.9% 2022- No 1000mL at 999 Uni vers (NS) bolus 09-12 mL/hr, ity of infusion 13:45: 14:48 1,000 mL, [place] as 1,000 mL 00 :00 IV Medical Infusion, Branch ONCE, 1 dose, On [facility] 09/12/22 at 0845, KACY ondansetron 0 2022- No 4mg 4 mg, Slow Univers (ZOFRAN 09-12 IV Push, ity of (PF)) 13:00: 13:08 ONCE, 1 [place] injection 4 00 :00 dose, On Medi thelma mg [facility] Branch 09/12/22 at 0800, KACY ondansetron 2022-0 Yes [id number] 4mg Take 1 Univers 4 mg 09-12 tablet by ity of disintegrat 00:00: mouth [place] ing tablet 00 every 8 Medica l (eight) Branch hours as needed for Nausea and Vomiting (N/V). Cyclobenzap Cyclobenzap No 1{table QD Cyclobenza rine HCl 10 rine HCl 10 1-30 t_at_be reid HCl MG MG 00:00: dtime_a 10 MG 00 s_neede d} amLODIPine amLODIPine 0 No 1{table QD amLODIPine Besylate 5 Besylate 5 1-30 t} Besylate 5 MG MG 00:00: MG 00 Diclofenac Diclofenac 0 No 1{table BID Diclofenac Sodium 75 Sodium 75 1-30 t_as_ne Sodium 75 MG MG 00:00: eded} MG 00 Pregabalin Pregabalin 0 No 1{capsu BID Pregabalin 75 MG 75 MG 1-30 le} 75 MG 00:00: 00 Zoloft 100 Zoloft 100 2022-0 No Zoloft 100 mg mg 1-30 mg 00:00: 00 Tylenol Tylenol 0 No Tylenol (#4) with (#4) with 1-30 (#4) with codeine codeine 00:00: codeine 60/300 60/300 00 60/300 Jardiance Jardiance 0 No 1{table QD Jardiance 25 MG 25 MG 1-30 t} 25 MG 00:00: 00 Toujeo Toujeo 2022-0 No QD Toujeo SoloStar SoloStar 30 SoloStar 300u/ml 300u/ml 00:00: 300u/ml 00 Methocarbam Methocarbam 0 No Methocarba ol 500 MG ol 500 MG 30 mol 500 MG 00:00: 00 BuSpar BuSpar 2022-0 No BuSpar 30 00:00: 00 Ozempic Ozempic 2022-0 No Ozempic 30 00:00: 00 Fenofibrate Fenofibrate 2022-0 No 1{table QD Fenofibrat 145 MG 145 MG 1-30 t} e 145 MG 00:00: 00 metFORMIN 0 Yes 1000mg Take 1,[address] (GLUCOPHAGE [...] 11:59: mouth Medical 38 daily. Center metFORMIN 0 Yes 1000mg Take 1,[address] (GLUCOPHAGE 7-02 mg by [facility] ) 1000 MG 11:59: mouth 2 Medic al tablet 38 (two) Center times daily with breakfast and dinner. lisinopriL 0 Yes 10mg QD Take 10 mg C [...] 11:59: mouth Medical 38 daily. Center metFORMIN 0 Yes 1000mg Take 1,[address] (GLUCOPHAGE [...] 11:59: mouth Medical 38 daily. Center metFORMIN 0 Yes 1000mg Take 1,[address] (GLUCOPHAGE 7-02 mg by [facility] ) 1000 MG 11:59: mouth 2 Medic al tablet 38 (two) Center times daily with breakfast and dinner. lisinopriL 0 Yes 10mg QD Take 10 mg C [...] [facility]ukes tablet 11:59: mouth Medical 38 daily. [place] metFORMIN Yes 1000mg Take 1,[address] (GLUCOPHAGE 7-02 mg by [facility] ) 1000 MG 11:59: mouth 2 Medic al tablet 38 (two) Center times daily with breakfast and dinner. lisinopriL 0 Yes 10mg QD Take 10 mg C [...] 11:59: mouth Medical 38 daily. Center metFORMIN 0 Yes 1000mg Take 1,[address] (GLUCOPHAGE [...] 11:59: mouth Medical 38 daily. Center metFORMIN 0 Yes 1000mg Take 1,[address] (GLUCOPHAGE [...] al 40 MG 38 Center tablet multivitami 2020-0 Yes 1{tbl} QD Take 1 CH I [...] QD Take [address] e -02 by mouth [facility] (PROTONIX) 11:59: daily. Medic [...] [facility] St -acetaminop 7-02 perineum tablet by Rakesh zavala (NORCO 00:00: mouth Medica l 5-325) 00 [...] [facility] -acetaminop 7-02 perineum tablet by LuAjungo hen (NORCO 00:00: mouth Medica l 5-325) [...] [facility] -acetaminop 08-18 perineum tablet by Rakesh hen (NORCO 00:00: [...] Q.5D Take [address] -clavulanat - 07-09 tablet by Andrea alyce e 00:00: 23:59 mouth 2 Medical (AUGMENTIN) 00 :00 (two) Center 875-125 mg times per tablet daily for 7 days. doxycycline 0 2020- No 100mg Q.5D Take [address] (MONODOX) 08-18 07-09 capsule [facility] 100 MG 00:00: 23:59 (100 mg Medical capsule 00 :00 total) by Center mouth 2 (two) times daily for 7 days. amoxicillin 2022020- No 1{tbl} Q.5D Take 1 C HI [...] Spirit 00:00: 00:00 - [facility] 00 :00 [facility] Cleocin 300 Cleocin 300 2020- No 2{capsu TID Cleocin MG MG 08-07 les} 300 MG 00:00: 00:00 00 :00 saw Yes Take by Everest palmMira Dx 2-08 mouth. 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 ity of ORAL 16:23: [address] [facility] Yes Take by Uni vers x,calcium,i 2-08 mouth. ity of jo,mins 16:23: [place] (MULTIVITAM 50 Medical IN AND Branch MINERAL ORAL) [facility] Yes Take by Univers palmetto 2-08 mouth. 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 ity of ORAL 16:23: [address] [facility] Yes Take by Uni vers x,calcium,i 2-08 mouth. ity of jo,mins 16:23: [place] (MULTIVITAM 50 Medical IN AND Branch MINERAL ORAL) [facility] 2021-0 Yes Take by Univers palmetto 2-08 mouth. 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 ity of ORAL 16:23: [place] 50 Medical Branch multivit,th Yes Take by Uni vers x,calcium,i 2-08 mouth. ity of jo,mins 16:23: [place] (MULTIVITAM 50 Medical IN AND Branch MINERAL ORAL) ondansetron Yes [id number] 4mg Take 1 Univers (ZOFRAN 2-08 tablet by ity of ODT) 4 mg 00:00: mouth [place] disintegrat 00 every 8 Medic al ing tablet (eight) Branch hours as needed for Nausea and Vomiting (N/V). ondansetron Yes [id number] 4mg Take 1 Univers (ZOFRAN 2-08 tablet by ity of ODT) 4 mg 00:00: mouth [place] disintegrat 00 every 8 Medic al ing tablet (eight) Branch hours as needed for Nausea and Vomiting (N/V). ondansetron 2022- No [id number] 4mg Take 1 Univers (ZOFRAN 2-08 07-27 tablet by ity of ODT) 4 mg 00:00: 00:00 mouth [place] disintegrat 00 :00 every 8 Medic al ing tablet (eight) Branch hours as needed for Nausea and Vomiting (N/V). proMETHazin 2020- No 12.5mg 12.5 mg, Univers e 03-19 IV ity of (PHENERGAN) 07:15: 07:15 [place] 12.5 mg in 00 :00 ONCE, 1 Medica l NaCl 0.9% dose, [facility] h (NS) 50 mL 03/19/20 at piggyback 0115, 50 mL NaCl 0.9% 2020- No 1000mL at 999 Uni vers (NS) bolus 03-19 mL/hr, ity of infusion 03:45: 05:00 1,000 mL, [place] as 1,000 mL 00 :00 IV Medical Infusion, Branch ONCE, 1 dose, 03/18/20 at 2145, STAT proMETHazin 2020- No 12.5mg 12.5 mg, Univers e 03-19 IV ity of (PHENERGAN) 03:00: 03:00 [facility], [place] 12.5 mg in 00 :00 ONCE, 1 Medica l NaCl 0.9% dose, Sat Branc h (NS) 50 mL 03/18/20 at piggyback 2100, 50 mL NaCl 0.9% 2020- No 500mL at 999 [facility] [place] [facility] ers (NS) bolus 03-19 mL/hr, 500 it y of infusion 02:15: 02:30 mL, IV [place] 500 mL 00 :00 Infusion, Medical ONCE, 1 [place] dose, 03/18/20 at 2015, STAT ondansetron 2020- No 4mg 4 mg, Slow Univers (ZOFRAN 03-19 IV Push, ity of (PF)) 02:15: 01:31 ONCE, 1 [place] injection 4 00 :00 dose, Sat Med ical mg 03/18/20 at Branch 2015, KACY proMETHazin Yes [id number] 25mg Insert 1 Univers e 03-19 Suppositor ity of (PHENERGAN) 00:00: y into [place] 25 mg 00 rectum Medical suppository every 4 Branc h (four) hours as needed for Nausea and Vomiting (N/V). proMETHazin Yes [id number] 25mg Insert 1 Univers e 03-19 Suppositor ity of (PHENERGAN) 00:00: y into [place] 25 mg 00 rectum Medical suppository every 4 Branc h (four) hours as needed for Nausea and Vomiting (N/V). proMETHazin Yes [id number] 25mg Insert 1 Univers e 03-19 Suppositor ity of (PHENERGAN) 00:00: y into [place] 25 mg 00 rectum Medical suppository every 4 Branc h (four) hours as needed for Nausea and Vomiting (N/V). proMETHazin 2022- No [id number] 25mg Insert 1 Univers e 03-19 07-27 Suppositor ity of (PHENERGAN) 00:00: 00:00 y into [place] as 25 mg 00 :00 rectum Medical suppository every 4 Branc h (four) hours as needed for Nausea and Vomiting (N/V). bamlanivima 2020- No 700mg 700 mg, IV Univers b (EUA) 700 03-15 Infusion, it y of mg in NaCl 16:45: 17:30 ONCE, Wed [place] 0.9% (NS) 00 :00 03/15/20 at Medi thelma 270 mL 1045, For Branch infusion 1 dose
Ad asbestos worker as an IV infusion over 60 minutes [...] 1045, For Branch infusion 1 dose
Ad asbestos worker as an IV infusion over 60 minutes [...] 1 [place] injection 4 00 :00 dose, [place] Med ical mg 03/12/20 at Branch 1915, KACY ketorolac 2020- No 30mg 30 mg, Unive rs (TORADOL) 03-13 Slow IV ity of injection 01:00: 00:14 Push, [place] 30 mg 00 :00 ONCE, 1 Medical dose, [place] Branch 03/12/20 at 1900, Routine
event staff member approving Restricted medication : CESAR, STEFANY G NaCl 0.9% 2020- No 1000mL at 999 Uni vers (NS) bolus 03-13-25 mL/hr, ity of infusion 00:15: 02:45 1,000 mL, [place] as 1,000 mL 00 :00 IV Medical Infusion, Branch ONCE, 1 dose, [place] 03/12/20 at 1815, KACY ondansetron Yes [id number] 4mg Take 1 Univers (ZOFRAN 1-24 tablet by ity of ODT) 4 mg 00:00: mouth [place] disintegrat 00 every 8 Medic al ing tablet (eight) Branch hours as needed for Nausea and Vomiting (N/V). ibuprofen Yes [id number] 800mg Take 1 Univers 800 mg 1-24 tablet by ity of tablet 00:00: mouth [place] 00 every 6 Medical (six) Branch hours as needed for Pain (scale 1-3) or Temp > 38.5 C. ondansetron Yes [id number] 4mg Take 1 Univers (ZOFRAN 1-24 tablet by ity of ODT) 4 mg 00:00: mouth [place] disintegrat 00 every 8 Medic al ing tablet (eight) Branch hours as needed for Nausea and Vomiting (N/V). ibuprofen Yes [id number] 800mg Take 1 Univers 800 mg 1-24 tablet by ity of tablet 00:00: mouth [place] 00 every 6 Medical (six) Branch hours as needed for Pain (scale 1-3) or Temp > 38.5 C. ondansetron Yes [id number] 4mg Take 1 Univers (ZOFRAN 1-24 tablet by ity of ODT) 4 mg 00:00: mouth [place] disintegrat 00 every 8 Medic al ing tablet (eight) Branch hours as needed for Nausea and Vomiting (N/V). ibuprofen Yes [id number] 800mg Take 1 Univers 800 mg 1-24 tablet by ity of tablet 00:00: mouth [place] 00 every 6 Medical (six) Branch hours as needed for Pain (scale 1-3) or Temp > 38.5 C. ondansetron Yes [id number] 4mg Take 1 Univers (ZOFRAN 1-24 tablet by ity of ODT) 4 mg 00:00: mouth [place] disintegrat 00 every 8 Medic al ing tablet (eight) Branch hours as needed for Nausea and Vomiting (N/V). ibuprofen Yes [id number] 800mg Take 1 Univers 800 mg 1-24 tablet by ity of tablet 00:00: mouth [place] 00 every 6 Medical (six) Branch hours as needed for Pain (scale 1-3) or Temp > 38.5 C. ondansetron Yes [id number] 4mg Take 1 Univers (ZOFRAN 1-24 tablet by ity of ODT) 4 mg 00:00: mouth [place] disintegrat 00 every 8 Medic al ing tablet (eight) Branch hours as needed for Nausea and Vomiting (N/V). ibuprofen Yes [id number] 800mg Take 1 Univers 800 mg 1-24 tablet by ity of tablet 00:00: mouth [place] 00 every 6 Medical (six) Branch hours as needed for Pain (scale 1-3) or Temp > 38.5 C. ondansetron Yes [id number] 4mg Take 1 Univers (ZOFRAN 1-24 tablet by ity of ODT) 4 mg 00:00: mouth [place] disintegrat 00 every 8 Medic al ing tablet (eight) Branch hours as needed for Nausea and Vomiting (N/V). ibuprofen Yes [id number] 800mg Take 1 Univers 800 mg 1-24 tablet by ity of tablet 00:00: mouth [place] 00 every 6 Medical (six) Branch hours as needed for Pain (scale 1-3) or Temp > 38.5 C. lisinopriL 2021-0 Yes TAKE 1 Unive rs 10 mg 1-04 TABLET BY ity of tablet 00:00: MOUTH [place] EVERY DAY Medical Branch lisinopriL 202-0 Yes TAKE 1 Unive rs 10 mg 1-04 TABLET BY ity of tablet 00:00: MOUTH [place] EVERY DAY Medical Branch lisinopriL 2021-0 Yes TAKE 1 Unive rs 10 mg 1-04 TABLET BY ity of tablet 00:00: [facility] EVERY DAY Medical Branch lisinopriL 2020-0 Yes TAKE 1 Unive rs 10 mg 1-04 TABLET BY ity of tablet 00:00: MOUTH [place] EVERY DAY Medical Branch lisinopriL 2020-0 Yes TAKE 1 Unive rs 10 mg 1-04 TABLET BY ity of tablet 00:00: [facility] EVERY DAY Medical Branch lisinopriL 2020-0 Yes TAKE 1 Unive rs 10 mg 1-04 TABLET BY ity of tablet 00:00: [facility] EVERY DAY Medical Branch lisinopriL 2020-0 Yes TAKE 1 Unive rs 10 mg 1-04 TABLET BY ity of tablet 00:00: [facility] EVERY DAY Medical Branch lisinopriL 2020-0 Yes TAKE 1 Unive rs 10 mg 1-04 TABLET BY ity of tablet 00:00: [facility] EVERY DAY Medical Branch lisinopriL 2020-0 Yes TAKE 1 Unive rs 10 mg 1-04 TABLET BY ity of tablet 00:00: [facility] EVERY DAY Medical Branch atorvastati 2020-1 Yes 40mg Take 40 mg Univers n 40 mg 2-18 by mouth. ity of tablet 00:00: [place] [facility] Branch atorvastati 2020-1 Yes 40mg Take 40 mg Univers n 40 mg 2-18 by mouth. ity of tablet 00:00: [place] [facility] Branch atorvastati 2019-1 Yes 40mg Take 40 mg Univers n 40 mg 2-18 by mouth. ity of tablet 00:00: [place] [facility] Branch atorvastati 2020- Yes 40mg Take 40 mg Univers n 40 mg 2-18 by mouth. ity of tablet 00:00: [place] Medical Branch atorvastati 2019-1 Yes 40mg Take 40 mg Univers n 40 mg 2-18 by mouth. ity of tablet 00:00: [place] Medical Branch atorvastati 2020-1 Yes 40mg Take 40 mg Univers n [...] mouth. ity of tablet 00:00: Medical Branch metFORMIN 2020- Yes TAKE 2 Univer s 500 mg 2-17 TABLETS BY ity of tablet 00:00: MOUTH [place] 00 EVERY Medical MORNING Branch AND EVERY EVENING metFORMIN 2020- Yes TAKE 2 Univer s 500 mg 2-17 TABLETS BY ity of tablet 00:00: MOUTH [place] EVERY Medical MORNING Branch AND EVERY EVENING metFORMIN 2020-1 Yes TAKE 2 Univer s 500 mg 2-17 TABLETS BY ity of tablet 00:00: MOUTH [place] EVERY Medical MORNING Branch AND EVERY EVENING metFORMIN 2020-1 Yes TAKE 2 Univer s 500 mg 2-17 TABLETS BY ity of tablet 00:00: MOUTH [place] EVERY Medical MORNING Branch AND EVERY EVENING metFORMIN 2020-1 Yes TAKE 2 Univer s 500 mg 2-17 TABLETS BY ity of tablet 00:00: MOUTH [place] 00 EVERY Medical MORNING Branch AND EVERY EVENING metFORMIN 2020-1 Yes TAKE 2 Univer s 500 mg 2-17 TABLETS BY ity of tablet 00:00: MOUTH [place] 00 EVERY Medical MORNING Branch AND EVERY EVENING metFORMIN 2020-1 Yes TAKE 2 Univer s 500 mg 2-17 TABLETS BY ity of tablet 00:00: MOUTH [place] 00 EVERY Medical MORNING Branch AND EVERY EVENING metFORMIN 2020-1 Yes TAKE 2 Univer s 500 mg 2-17 TABLETS BY ity of tablet 00:00: MOUTH [place] EVERY Medical MORNING Branch AND EVERY EVENING metFORMIN 2020-1 Yes TAKE 2 Univer s 500 mg 2-17 TABLETS BY ity of tablet 00:00: MOUTH [place] 00 EVERY Medical MORNING Branch AND EVERY EVENING semaglutide 2020- Yes 1{tbl} Take 1 Un shaniqua (RYBELSUS) 1-30 tablet by ity of 3 mg Tab 00:00: mouth. [place] Medical Branch semaglutide 2020- Yes 1{tbl} Take 1 Un sh[place]a (RYBELSUS) 1-30 tablet by ity of 3 mg Tab 00:00: mouth. [address] semaglutide 2019-02 Yes 1{tbl} Take 1 Un sh[place]a (RYBELSUS) 1-30 tablet by ity of 3 mg Tab 00:00: mouth. [place] [facility] semaglutide 2019-02 Yes 1{tbl} Take 1 Un [place] (RYBELSUS) 1-30 tablet by ity of 3 mg Tab 00:00: mouth. [place] [facility] semaglutide 2019-02 Yes 1{tbl} Take 1 Un [place] (RYBELSUS) 1-30 tablet by ity of 3 mg Tab 00:00: mouth. [address] semaglutide 2019-02 Yes 1{tbl} Take 1 Un [place] (RYBELSUS) 1-30 tablet by ity of 3 mg Tab 00:00: mouth. [address] semaglutide 2019-02 Yes 1{tbl} Take 1 Un sh[place]a (RYBELSUS) 1-30 tablet by ity of 3 mg Tab 00:00: mouth. [place] [facility] semaglutide 2019-02 Yes 1{tbl} Take 1 Un [place] (RYBELSUS) 1-30 tablet by ity of 3 mg Tab 00:00: mouth. [address] semaglutide 2019-02 Yes 1{tbl} Take 1 Un [place] (RYBELSUS) 1-30 tablet by ity of 3 mg Tab 00:00: mouth. [address] Atorvastati Atorvastati No 1{table QD Atorvastat [...] MG 10 MG t} 10 MG [facility] Celecoxib Celecoxib No 1{capsu BID Celecoxib Common 200 MG 200 MG le_with 200 MG Spirit _food} [facility] Belsomra 15 Belsomra 15 No 1{table QD Belsomra Common MG MG t_at_be 15 MG Spirit dtime_a - [facility] s[facility]neede [facility] d} [facility] metFORMIN metFORMIN No 1{table QID metFORMIN Common HCl 500 MG HCl 500 MG t_with_ HCl 500 MG Spirit a_meal} [facility] Atorvastati Atorvastati No 1{table QD Atorvastat Common n Calcium n Calcium t} in Calcium Spirit 40 MG 40 MG 40 MG - [facility] Pantoprazol Pantoprazol No 1{table QD Pantoprazo Common e Sodium 40 e Sodium 40 t} le Sodium Spirit MG MG 40 MG - [facility] metFORMIN metFORMIN No 1{table QID metFORMIN [...] 10 MG 10 MG t} 10 MG Vital Signs Vital Name Observation Time Observation Value Comments Source HEIGHT 2020-08-14 04:00:00 180.3 cm WEIGHT 2020-08-14 04:00:00 124.739 kg Systolic blood 2022-09-12 16:30:00 142 mm[Hg] [facility]iver [facility] Diastolic blood 2022-09-12 16:30:00 86 [facility]Hg[facility] 2022-09-12 16:30:00 79 /min Universi ty [facility] Respiratory rate 2022-09-12 16:30:00 20 /min [facility] Oxygen saturation in 2022-09-12 16:30:00 95 /min [facility] Arterial blood by [facility] Pulse oximetry Branch Body temperature 2022-09-12 12:44:00 36.56 Nafisa [facility] [place] [facility] height 2022-09-12 12:44:00 177.8 cm Universi ty [facility] Body weight 2022-09-12 12:44:00 122.471 kg [facility] BMI 2022-09-12 12:44:00 38.74 kg/m2 [facility] height 2022-03-18 09:00:00 71.00 [in_i] [facility] weight 2022-03-18 09:00:00 250 [lb_av] [facility] temperature 2022-03-18 09:00:00 97.2 [degF] [facility] bmi 2022-03-18 09:00:00 34.86 kg/m2 [facility] blood pressure 2022-03-18 09:00:00 131 mm[Hg] [facility] - systolic [facility] blood pressure 2022-03-18 09:00:00 80 mm[Hg] [facility] - diastolic [facility] HEIGHT 2020-08-14 04:00:00 180.3 cm WEIGHT 2020-08-14 04:00:00 124.739 kg height 2020-08-04 10:00:00 71.00 [in_i] [facility] weight 2020-08-04 10:00:00 283.4 [lb_av] [facility] temperature 2020-08-04 10:00:00 95.2 [degF] [facility] bmi 2020-08-04 10:00:00 39.52 kg/m2 [facility] oximetry 2020-08-04 10:00:00 97 % [facility] - [facility] respiratory rate 2020-08-04 10:00:00 16 /min Comm on Spirit - [facility] blood pressure 2020-08-04 10:00:00 131 mm[Hg] [facility] - systolic [facility] blood pressure 2020-08-04 10:00:00 80 mm[Hg] [facility] - diastolic [facility] Systolic blood 2020-03-19 06:42:06 137 mm[Hg] Univer sity of pressure [place] [facility] [place] Diastolic blood 2020-03-19 06:42:06 92 mm[Hg] Unive rsity of pressure [place] [facility] Heart rate 2020-03-19 06:42:06 90 /min Universi ty [facility] [place] [facility] Respiratory rate 2020-03-19 06:42:06 17 /min [facility] Oxygen saturation in 2020-03-19 06:42:06 97 /min [facility] Arterial blood by [facility] Pulse oximetry Branch Body temperature 2020-03-19 00:47:00 37.22 Nafisa [facility] Body weight 2020-03-19 00:47:00 122.471 kg [facility] Systolic blood 2020-03-19 00:15:00 126 mm[Hg] [facility] Diastolic blood 2020-03-19 00:15:00 84 mm[Hg] [facility] Heart rate 2020-03-19 00:15:00 102 /min [facility] Body temperature 2020-03-19 00:15:00 36.83 Nafisa [facility] Respiratory rate 2020-03-19 00:15:00 20 /min [facility] Oxygen saturation in 2020-03-19 00:15:00 95 /min [facility] Arterial blood by [facility] Pulse oximetry Branch Systolic blood 2020-03-15 17:31:00 144 mm[Hg] [facility] Diastolic blood 2020-03-15 17:31:00 88 mm[Hg] [facility] Heart rate 2020-03-15 17:31:00 86 /min [facility] Body temperature 2020-03-15 17:31:00 36.94 Nafisa [facility] Respiratory rate 2020-03-15 17:31:00 18 /min [facility] Oxygen saturation in 2020-03-15 17:31:00 95 /min [facility] Arterial blood by [facility] thelma Pulse oximetry Branch Body weight 2020-03-15 15:55:00 122.471 kg [facility] Systolic blood 2020-03-15 17:31:00 144 mm[Hg] [facility] Diastolic blood 2020-03-15 17:31:00 88 mm[Hg] [facility] Heart rate 2020-03-15 17:31:00 86 /min [facility] Body temperature 2020-03-15 17:31:00 36.94 Nafisa [facility] Respiratory rate 2020-03-15 17:31:00 18 /min [facility] Oxygen saturation in 2020-03-15 17:31:00 95 /min [facility] Arterial blood by [facility] Pulse oximetry Branch Body weight 2020-03-15 15:55:00 122.471 kg [facility] Heart rate 2020-03-13 02:30:00 87 /min [facility] Respiratory rate 2020-03-13 02:30:00 25 /min [facility] Oxygen saturation in 2020-03-13 02:30:00 92 /min [facility] Arterial blood by [facility] Pulse oximetry Branch Systolic blood 2020-03-13 02:00:00 107 mm[Hg] [facility] Diastolic blood 2020-03-13 02:00:00 60 mm[Hg] [facility] Body temperature 2020-03-12 23:41:00 38.17 Nafisa [facility] Body weight 2020-03-12 23:41:00 126.1 kg [facility] Systolic blood 2020-08-18 08:00:00 131 mm[Hg] [facility] Diastolic blood 2020-08-18 08:00:00 78 mm[Hg] [facility] S [facility] Heart rate 2020-08-18 08:00:00 67 /min [facility] Body temperature 2020-08-18 08:00:00 36.28 Nafisa [facility] Respiratory rate 2020-08-18 08:00:00 18 /min [facility] Oxygen saturation in 2020-08-18 08:00:00 95 /min [facility] Arterial blood by Medical Ce nter Pulse oximetry Body height 2020-08-14 04:00:00 180.3 cm [facility] Body weight 2020-08-14 04:00:00 124.739 kg [facility] BMI 2020-08-14 04:00:00 38.35 kg/m2 [facility] Procedures Procedure Date / Time Performing Clinician Source Performed EKG-12 LEAD 2022-09-12 16:38:01 Nadiya [facility] CREATINE KINASE 2022-09-12 13:54:00 Nadiya [facility] COMP. METABOLIC PANEL 2022-09-12 13:54:00 Nadiya Churchill [facility] ([id number]) [facility] URINALYSIS 2022-09-12 13:48:00 Nadiya [facility] POCT GLUCOSE 2022-09-12 13:07:00 Nadiya Churchill [facility] (AUTOMATED) [facility] LIPASE 2022-09-12 13:02:00 Nadiya [facility] TROPONIN I 2022-09-12 13:02:00 Nadiya [facility] CBC WITH DIFF 2022-09-12 13:02:00 Nadiya [facility] CONSENT/REFUSAL FOR 2022-09-12 12:36:32 Doctor Unassigned, No [facility] DIAGNOSIS AND TREATMENT Name Medical Branch REFERRAL- 2022-02-07 06:01:00 Doctor Unassigned, No [facility] REQUEST/RESPONSE Name [facility] HEPATITIS C ANTIBODY 2021-08-27 04:29:00 [facility] POCT-GLUCOSE METER 2020-08-18 07:49:00 Shieh [facility] BASIC METABOLIC PANEL 2020-08-18 05:24:00 [facility] (7) [facility] CBC W/PLT COUNT & AUTO 2020-08-18 05:20:00 [facility] DIFFERENTIAL [facility] (MANUAL DIFFERENTIAL) 2020-08-18 05:20:00 Shieh, [facility] CBC W/PLT COUNT & AUTO 2020-08-18 05:20:00 [facility] POCT-GLUCOSE METER 2020-08-17 20:14:00 [facility] POCT-GLUCOSE METER 2020-08-17 16:32:00 [facility] POCT-GLUCOSE METER 2020-08-17 11:05:00 Shi [facility] CBC W/PLT COUNT & AUTO 2020-08-17 08:09:00 [facility] DIFFERENTIAL [facility] (MANUAL DIFFERENTIAL) 2020-08-17 08:09:00 [facility] MAGNESIUM 2020-08-17 08:09:00 [facility] BASIC METABOLIC PANEL 2020-08-17 08:09:00 [facility] (7) [facility] CBC W/PLT COUNT & AUTO 2020-08-17 08:09:00 [facility] DIFFERENTIAL [facility] VANCOMYCIN LEVEL, 2020-08-17 05:27:[address] [facility] POCT-GLUCOSE METER 2020-08-16 21:08:00 Shi [facility] POCT-GLUCOSE METER 2020-08-16 17:01:00 Shi, [facility] POCT-GLUCOSE METER 2020-08-16 11:49:00 Aureaemmett [facility] POCT-GLUCOSE METER 2020-08-16 08:34:00 Shieh [facility] CBC W/PLT COUNT & AUTO 2020-08-16 04:52:00 Loraine [facility] DIFFERENTIAL Center BASIC METABOLIC PANEL 2020-08-16 04:52:00 Onbenigno [facility] (7) Center CBC W/PLT COUNT & AUTO 2020-08-16 04:52:00 [facility] POCT-GLUCOSE METER 2020-08-15 21:29:00 Juan Carlos [facility] VANCOMYCIN LEVEL, 2020-08-15 20:14:00 Micha Sanchez [facility] Center POCT-GLUCOSE METER 2020-08-15 16:54:00 Juan Carlos [facility] POCT-GLUCOSE METER 2020-08-15 11:07:00 [facility] POCT-GLUCOSE METER 2020-08-15 07:22:00 Juan Carlos [facility] CBC W/PLT COUNT & AUTO 2020-08-15 04:15:00 Loraine [facility] DIFFERENTIAL Center BASIC METABOLIC PANEL 2020-08-15 04:15:00 [facility] (7) Center CBC W/PLT COUNT & AUTO 2020-08-15 04:15:00 [facility] Center POCT-GLUCOSE METER 2020-08-14 20:59:00 Juan Carlos [facility] CT ABDOMEN/PELVIS WITH 2020-08-14 18:18:00 Darrian Jurado Ndraya [facility] IV CONTRAST Center SARS-COV2/RT-PCR ([facility] 2020-08-14 17:12:00 Darrian Jurado [facility] & REF LABS) Center POCT-GLUCOSE METER 2020-08-14 16:42:00 [facility] POCT-GLUCOSE METER 2020-08-14 11:10:00 [facility] (SCROTUM) 2020-08-14 08:55:00 Loraine [facility] POCT-GLUCOSE METER 2020-08-14 07:22:00 [facility] 2020-08-14 07:01:00 [facility] URINALYSIS W/ REFLEX 2020-08-14 07:01:00 Loraine [facility] URINE CULTURE Center BLOOD CULTURE 2020-08-14 06:56:00 [facility] CBC W/PLT COUNT & AUTO 2020-08-14 05:47:00 [facility] BASIC METABOLIC PANEL 2020-08-14 05:47:00 [facility] [place] HEMOGLOBIN A1C 2020-08-14 05:47[facility] 2020-08-14 05:47:00 Loraine [facility] MAGNESIUM 2020-08-14 05:47[facility]00 [facility] 2020-08-14 05:47[facility]00 [facility] W/[facility]T [facility] & AUTO 2020-08-14 05:47[facility] 2020-08-14 04:10[facility]00 [facility] PANEL 2020-03-19 05:19:00 Radha Oliveira [facility] (NA, K, CL, CO2, Medical Branch GLUCOSE, BUN, CREATININE, CA) AC VBG + LACTIC ACID 2020-03-19 03:24:[address] [facility] URINALYSIS 2020-03-19 02:34:00 Radha Oliveira [facility] LIPASE 2020-03-19 01:30:00 Radha Oliveira [facility] MAGNESIUM 2020-03-19 01:30:00 Radha Oliveira [facility] COMP. METABOLIC PANEL 2020-03-19 01:30:00 Radha Oliveira [facility] ([id number]) Medical Branch CBC WITH DIFF 2020-03-19 01:29:00 Radha Oliveira [facility] CONSENT/REFUSAL FOR 2020-03-19 00:39:12 Doctor Unassigned, No [facility] Name [facility] [id number] CONSENT 2020-03-15 06:01:00 Doctor Unassigned, No [facility] Name [facility] Branch XR CHEST 1 VW 2020-03-13 00:48:13 Stefany Guerrero [facility] LIPASE 2020-03-13 00:11:00 Stefany Guerrero [facility] HEPATIC FUNCTION PANEL 2020-03-13 00:11:00 Stefany Guerrero [facility] ([id number]) (ALB,T.PRO,BILI Medical Branch T,BU/BC,ALT,AST,ALK PHOS) BASIC METABOLIC PANEL 2020-03-13 00:11:00 Stefany Guerrero [facility] (NA, K, CL, CO2, Medical Branch GLUCOSE, BUN, CREATININE, CA) CBC WITH DIFF 2020-03-13 00:11:00 Stefany Guerrero [facility] URINALYSIS 2020-03-13 00:11:00 Stefany Guerrero [facility] ADC,CLC OR LCC ONLY - 2020-03-13 00:11:00 Stefany Guerrero [facility] INFLUENZA A & B DIRECT Medical B ranch ANTIGEN COVID-19 (ID NOW RAPID 2020-03-13 00:11:00 Stefany Guerrero [facility] TESTING) Medical Branch NOTICE OF PRIVACY 2020-03-12 23:39:50 [facility], [facility] CONSENT/REFUSAL FOR 2020-03-12 23:39:34 [facility] Unassigned, No [facility] Name Medical Branch Plan of Care Planned Activity Planned Date Details Comments Source Future Scheduled 2023-03-26 Lipid panel (procedure) [facility] 00:00:00 [code = [id number]] Medical Ce nter Future Scheduled 2023-03-26 Lipid panel (procedure) [facility] 00:00:00 [code = [id number]] Medical Ce nter Future Scheduled 2023-03-26 Lipid panel (procedure) [facility] 00:00:00 [code = [id number]] Medical Ce nter Future Scheduled 2023-03-26 Lipid panel (procedure) [facility] 00:00:00 [code = [id number]] Medical Ce nter Future Scheduled 2023-03-26 Lipid panel (procedure) [facility] 00:00:00 [code = [id number]] Medical Ce nter Future Scheduled 2023-03-26 Lipid panel (procedure) [facility] 00:00:00 [code = [id number]] Medical Ce nter Future Scheduled 2023-03-26 Lipid panel (procedure) [facility] 00:00:00 [code = [id number]] Medical Ce nter Future Scheduled 2023-03-26 Lipid panel (procedure) [facility] 00:00:00 [code = [id number]] Medical Ce nter Future Scheduled 2022-10-18 Influenza Vaccine (#1) [facility] 00:[facility]:00 [code = Influenza Vaccine Me dical Center (#1)] Future Scheduled 2022-10-18 Influenza Vaccine (#1) [facility] 00:00:00 [code = Influenza Vaccine Me dical Center (#1)] Future Scheduled 2022-10-18 Influenza Vaccine (#1) [facility] 00:00:00 [code = Influenza Vaccine Me dical Center (#1)] Future Scheduled 2022-10-18 Influenza Vaccine (#1) [facility] 00:00:00 [code = Influenza Vaccine Me dical Center (#1)] Future Scheduled 2022-10-18 Influenza Vaccine (#1) [facility] 00:00:00 [code = Influenza Vaccine Me dical Center (#1)] Future Scheduled 2022-02-[address] [facility] 00:00:00 (12+) [code = DEPRESSION Med ical Center SCREENING (12+)] Future Scheduled 2022-02-[address] [facility] 00:00:00 (12+) [code = DEPRESSION Med ical Center SCREENING (12+)] Future Scheduled 2022-02-[address] [facility] 00:00:00 (12+) [code = DEPRESSION Med ical Center SCREENING (12+)] Future Scheduled 2022-02-[address] [facility] 00:00:00 (12+) [code = DEPRESSION Med ical Center SCREENING (12+)] Future Scheduled 2022-02-[address] [facility] 00:00:00 (12+) [code = DEPRESSION Med ical Center SCREENING (12+)] Future Scheduled 2021-10-18 INFLUENZA VACCINE (#1) [facility] 00:00:00 [code = INFLUENZA VACCINE Me dical Center (#1)] Future Scheduled 2021-08-10 SHINGLES VACCINES ([address] [facility] 00:00:00 2) [code = SHINGLES Medical Center VACCINES (1 of 2)] Future Scheduled 2021-08-10 SHINGLES VACCINES ([address] [facility] 00:00:00 2) [code = SHINGLES Medical Center VACCINES (1 of 2)] Future Scheduled 2021-08-10 SHINGLES VACCINES ([address] [facility] 00:00:00 2) [code = SHINGLES Medical Center VACCINES (1 of 2)] Future Scheduled 2021-08-10 SHINGLES VACCINES ([address] [facility] 00:00:00 2) [code = SHINGLES Medical Center VACCINES (1 of 2)] Future Scheduled 2021-08-10 SHINGLES VACCINES ([address] [facility] 00:00:00 2) [code = SHINGLES Medical Center VACCINES (1 of 2)] Future Scheduled 2021-08-10 SHINGLES VACCINES ([address] [facility] 00:00:00 2) [code = [facility] VACCINES (1 of 2)] Future Scheduled 2021-02-[address] [facility] 00:00:00 (12+) [code = DEPRESSION Med ical Center SCREENING (12+)] Future Scheduled 2020-11-[address] [facility] measurement (procedure) Medi thelma Center [code = [id number]] Future Scheduled 2020-11-[address] [facility] 00:00:00 measurement (procedure) Medi [facility]lma Center [code = 14440995] Future Scheduled 2020-11-[address] [facility] 00:00:00 measurement (procedure) Medi thelma Center [code = 66194757] Future Scheduled 2020-11-[address] [facility] 00:00:00 measurement (procedure) Medi thelma Center [code = 36392212] Future Scheduled 2020-11-[address] [facility] 00:00:00 measurement (procedure) Medi thelma Center [code = 72138652] Future Scheduled 2020-11-[address] [facility] 00:00:00 measurement (procedure) Medi thelma Center [code = 49061258] Future Scheduled 2020-11-[address] [facility] 00:00:00 measurement (procedure) Medi thelma Center [code = 59075608] Future Scheduled 2020-11-[address] [facility] 00:00:00 measurement (procedure) Medi thelma Center [code = 87487208] Future Scheduled 2020-10-18 INFLUENZA VACCINE (#1) [facility] 00:00:00 [code = INFLUENZA VACCINE Me dical Center (#1)] Future Scheduled 2020-10-18 INFLUENZA VACCINE (#1) [facility] 00:00:00 [code = INFLUENZA VACCINE Me dical Center (#1)] Future Scheduled 2020-02-[address] [facility] 00:00:00 (12+) [code = DEPRESSION Med ical Center SCREENING (12+)] Future Scheduled 2020-02-[address] [facility] 00:00:00 (12+) [code = DEPRESSION Med ical Center SCREENING (12+)] Future Scheduled 1990-08-10 DTAP/TDAP/TD VACCINES ([address] [facility] 00:00:00 - Tdap) [code = Medical Cent er DTAP/TDAP/TD VACCINES (1 - Tdap)] Future Scheduled 1990-08-10 DTAP/TDAP/TD VACCINES ([address] [facility] 00:00:00 - Tdap) [code = Medical Cent er DTAP/TDAP/TD VACCINES (1 - Tdap)] Future Scheduled 1990-08-10 DTAP/TDAP/TD VACCINES ([address] [facility] 00:00:00 - Tdap) [code = Medical Cent er DTAP/TDAP/TD VACCINES (1 - Tdap)] Future Scheduled 1990-08-10 DTAP/TDAP/TD VACCINES ([address] [facility] 00:00:00 - Tdap) [code = Medical Cent er DTAP/TDAP/TD VACCINES (1 - Tdap)] Future Scheduled 1990-08-10 DTAP/TDAP/TD VACCINES ([address] [facility] 00:00:00 - Tdap) [code = Medical Cent er DTAP/TDAP/TD VACCINES (1 - Tdap)] Future Scheduled 1990-08-10 DTAP/TDAP/TD VACCINES ([address] [facility] 00:00:00 - Tdap) [code = Medical Cent er DTAP/TDAP/TD VACCINES (1 - Tdap)] Future Scheduled 1990-08-10 DTAP/TDAP/TD VACCINES ([address] [facility] 00:00:00 - Tdap) [code = Medical Cent er DTAP/TDAP/TD VACCINES (1 - Tdap)] Future Scheduled 1990-08-10 DTAP/TDAP/TD VACCINES ([address] [facility] 00:00:00 - Tdap) [code = Medical Cent er DTAP/TDAP/TD VACCINES (1 - Tdap)] Future Scheduled 1989-08-10 HEPATITIS C [facility]CRE[facility]ING [facility]00 [code = HEPATITIS C Medical Center SCREENING] Future Scheduled 1989-08-10 HEPATITIS C [facility]ING [facility] 00:00:00 [code = HEPATITIS C Medical Center SCREENING] Future Scheduled 1986-08-[address] [facility] 00:00:00 virus screening Medical Cent er (procedure) [code = [id number]] Future Scheduled 1986-08-[address] [facility] 00:00:00 virus screening Medical Cent er (procedure) [code = 246283019] Future Scheduled 1986-08-[address] [facility] 00:00:00 virus screening Medical Cent er (procedure) [code = 997434109] Future Scheduled 1986-08-[address] [facility] 00:00:00 virus screening Medical Cent er (procedure) [code = 411741004] Future Scheduled 1983 COVID-19 VACCINE (1) [facility] 00:00:00 [code = COVID-19 VACCINE Med ical Center (1)] Future Scheduled 1983 COVID-19 VACCINE (1) [facility] 00:00:00 [code = COVID-19 VACCINE Med ical Center (1)] Future Scheduled [address] [facility] 00:00:00 Counseling and Screening Med ical Center (12+) [code = Tobacco Cessation Counseling and Screening (12+)] Future Scheduled [address] [facility] 00:00:00 Counseling and Screening Med ical Center (12+) [code = Tobacco Cessation Counseling and Screening (12+)] Future Scheduled [address] [facility] 00:00:00 Counseling and Screening Med ical Center (12+) [code = Tobacco Cessation Counseling and Screening (12+)] Future Scheduled [address] [facility] 00:00:00 Counseling and Screening Med ical Center (12+) [code = Tobacco Cessation Counseling and Screening (12+)] Future Scheduled [address] [facility] 00:00:00 Counseling and Screening Med ical Center (12+) [code = Tobacco Cessation Counseling and Screening (12+)] Future Scheduled 1981-08-10 DIABETIC EYE EXAM [code = [facility] 00:00:00 DIABETIC EYE EXAM] Medical C enter Future Scheduled 1981-08-10 Diabetic foot examination [facility] 00:00:00 (regime/therapy) [code = Med ical Center [id number]] Future Scheduled 1981-08-10 Urine screening for [facility] 00:00:00 protein (procedure) [code Me dical Center = 920257542] Future Scheduled 1981-08-10 DIABETIC EYE EXAM [code = [facility] 00:00:00 DIABETIC EYE EXAM] Medical C enter Future Scheduled 1981-08-10 Diabetic foot examination [facility] 00:00:00 (regime/therapy) [code = [facility] [id number]] Future Scheduled 1981-08-10 Urine screening for [facility] 00:00:00 protein (procedure) [code Me dical Center = 673409319] Future Scheduled 1981-08-10 DIABETIC EYE EXAM [code = [facility] 00:00:00 DIABETIC EYE EXAM] Medical C enter Future Scheduled 1981-08-10 Urine screening for [facility] 00:00:00 protein (procedure) [code Wi dical Center = 664705459] Future Scheduled 1981-08-10 DIABETIC EYE EXAM [code = [facility] 00:00:00 DIABETIC EYE EXAM] Medical C enter Future Scheduled 1981-08-10 Urine screening for [facility] 00:00:00 protein (procedure) [code Wi dical Center = 394650700] Future Scheduled 1981-08-10 DIABETIC EYE EXAM [code = [facility] 00:00:00 DIABETIC EYE EXAM] Medical C enter Future Scheduled 1981-08-10 Urine screening for [facility] 00:00:00 protein (procedure) [code Wi dical Center = 251325599] Future Scheduled 1981-08-10 DIABETIC EYE EXAM [code = [facility] 00:00:00 DIABETIC EYE EXAM] Medical C enter Future Scheduled 1981-08-10 Urine screening for [facility] 00:00:00 protein (procedure) [code Me dical Center = 656278917] Future Scheduled 1981-08-10 DIABETIC EYE EXAM [code = [facility] 00:00:00 DIABETIC EYE EXAM] Medical C enter Future Scheduled 1981-08-10 Urine screening for [facility] 00:00:00 protein (procedure) [code Wi dical Center = 397840033] Future Scheduled 1981-08-10 DIABETIC EYE EXAM [code = [facility] 00:00:00 DIABETIC EYE EXAM] Medical C enter Future Scheduled 1981-08-10 Urine screening for [facility] 00:00:00 protein (procedure) [code Wi dical Center = 815936462] Future Scheduled 1977-08-10 PNEUMOCOCCAL VACCINE 0-[address] [facility] 00:00:00 YRS (1 of 2 - PPSV23) Medica l Center [code = PNEUMOCOCCAL VACCINE 0-64 YRS (1 of 2 - PPSV23)] Future Scheduled 1977-08-10 PNEUMOCOCCAL VACCINE 0-[address] [facility] 00:00:00 YRS (1 of 2 - PPSV23) Medica l Center [code = PNEUMOCOCCAL VACCINE 0-64 YRS (1 of 2 - PPSV23)] Future Scheduled 1977-08-10 PNEUMOCOCCAL VACCINE 0-[address] [facility] 00:00:00 YRS (1 - PCV) [code = Medica l Center PNEUMOCOCCAL VACCINE 0-64 YRS (1 - PCV)] Future Scheduled 1977-08-10 Pneumococcal Vaccine: [facility] 00:[facility]:00 0-64 Years (1 - PCV) Medical Center [code = Pneumococcal Vaccine: 0-64 Years (1 - PCV)] Future Scheduled 1977-08-10 Pneumococcal Vaccine: [facility] 00:00:00 0-64 Years (1 - PCV) Medical Center [code = Pneumococcal Vaccine: 0-64 Years (1 - PCV)] Future Scheduled 1977-08-10 Pneumococcal Vaccine: [facility] 00:00:00 0-64 Years (1 - PCV) Medical Center [code = Pneumococcal Vaccine: 0-64 Years (1 - PCV)] Future Scheduled 1977-08-10 Pneumococcal Vaccine: [facility] 00:00:00 0-64 Years (1 - PCV) Medical Center [code = Pneumococcal Vaccine: 0-64 Years (1 - PCV)] Future Scheduled 1977-08-10 Pneumococcal Vaccine: [facility] 00:00:00 0-64 Years (1 - PCV) Medical Center [code = Pneumococcal Vaccine: 0-64 Years (1 - PCV)] Future Scheduled 1972-02-10 COVID-19 VACCINE (#1) [facility]:00:00 [code = COVID-19 VACCINE Med ical Center (#1)] Future Scheduled 1972-02-10 COVID-19 VACCINE (#1) [facility] 00:00:00 [code = COVID-19 VACCINE Med ical Center (#1)] Future Scheduled 1972-02-10 COVID-19 VACCINE (#1) [facility] 00:00:00 [code = COVID-19 VACCINE Med ical Center (#1)] Future Scheduled 1972-02-10 COVID-19 VACCINE (#1) [facility] 00:00:00 [code = COVID-19 VACCINE Med ical Center (#1)] Future Scheduled 1972-02-10 COVID-19 VACCINE (#1) [facility] 00:00:00 [code = COVID-19 VACCINE Med ical Center (#1)] Future Scheduled 1972-02-10 COVID-19 VACCINE (#1) [facility] 00:00:00 [code = COVID-19 VACCINE Med ical Center (#1)] Future Scheduled [address] Screening for malignant [facility] 00:00:00 neoplasm of colon Medical Ce nter (procedure) [code = 169845363] Future Scheduled 1971 Screening for malignant [facility] 00:00:00 neoplasm of colon Medical Ce nter (procedure) [code = 417350462] Future Scheduled 1971 CT Colonography (combo) [facility] 00:00:00 [code = CT Colonography [facility] (combo)] Future Scheduled 1971 Screening for malignant [facility] 00:00:00 neoplasm of colon Medical Ce nter (procedure) [code = 620561208] Future Scheduled 1971 Screening for malignant [facility] 00:00:00 neoplasm of colon Medical Ce nter (procedure) [code = 947832691] Future Scheduled 1971 Screening for malignant [facility] 00:00:00 neoplasm of colon Medical Ce nter (procedure) [code = 737846985] Future Scheduled 1971 Screening for malignant [facility] 00:00:00 neoplasm of colon Medical Ce nter (procedure) [code = 087000130] Future Scheduled 1971 Sigmoidoscopy [facility]code = [facility]] Medical Cent[facility] r Future Scheduled 1971 CT Colonography (combo) [facility] 00:00:00 [code = CT [facility] (combo)] Future Scheduled 1971 Screening for malignant [facility] 00:00:00 neoplasm of colon Medical Ce nter (procedure) [code = 471489470] Future Scheduled 1971 Screening for malignant [facility] 00:00:00 neoplasm of colon Medical Ce nter (procedure) [code = 066056377] Future Scheduled 1971 Screening for malignant [facility] 00:00:00 neoplasm of colon Medical Ce nter (procedure) [code = 773293120] Future Scheduled 1971 Screening for malignant [facility] 00:00:00 neoplasm of colon Medical Ce nter (procedure) [code = 627269762] Future Scheduled 1971 S[facility]oidoscopy [facility]] Medical Cente r Future Scheduled 1971 CT Colonography (combo) [facility] 00:00:00 [code = CT [facility]ography [facility] (combo)] Future Scheduled 1971 Screening for malignant [facility] 00:00:00 neoplasm of colon Medical Ce nter (procedure) [code = 921767705] Future Scheduled 1971 Screening for malignant [facility] 00:00:00 neoplasm of colon Medical Ce nter (procedure) [code = 578338033] Future Scheduled 1971 Screening for malignant [facility] 00:00:00 neoplasm of colon Medical Ce nter (procedure) [code = 017780577] Future Scheduled 1971 Screening for malignant [facility] 00:00:00 neoplasm of colon Medical Ce nter (procedure) [code = 945376676] Future Scheduled 1971 Sigmoidoscopy [facility]code = [facility]] Medical Cente r Future Scheduled 1971 CT Colonography (combo) [facility] 00:00:00 [code = CT [facility]ography [facility] (combo)] Future Scheduled 1971 Screening for malignant [facility] 00:00:00 neoplasm of colon Medical Ce nter (procedure) [code = 625836746] Future Scheduled 1971 Screening for malignant [facility] 00:00:00 neoplasm of colon Medical Ce nter (procedure) [code = 584731791] Future Scheduled 1971 Screening for malignant [facility] 00:00:00 neoplasm of colon Medical Ce nter (procedure) [code = 846278467] Future Scheduled 1971 Screening for malignant [facility] 00:00:00 neoplasm of colon Medical Ce nter (procedure) [code = 992399651] Future Scheduled 1971 Sigmoidoscopy [facility]code [facility]] Medical Cente r Future Scheduled 1971 CT Colonography (combo) [facility] 00:00:00 [code = CT [facility] (combo)] Future Scheduled 1971 Screening for malignant [facility] 00:00:00 neoplasm of colon Medical Ce nter (procedure) [code = 847996259] Future Scheduled 1971 Screening for malignant [facility] 00:00:00 neoplasm of colon Medical Ce nter (procedure) [code = 933653699] Future Scheduled 1971 Screening for malignant [facility] 00:00:00 neoplasm of colon Medical Ce nter (procedure) [code = 201459432] Future Scheduled 1971 Screening for malignant [facility] 00:00:00 neoplasm of colon Medical Ce nter (procedure) [code = 625648372] Future Scheduled 1971 Sigmoidoscopy [facility]code [facility]] Medical Cente r Future Scheduled 1971 CT Colonography (combo) [facility] 00:00:00 [code = CT Colonography [facility] (combo)] Future Scheduled 1971 Screening for malignant [facility] 00:00:00 neoplasm of colon Medical Ce nter (procedure) [code = 032908952] Future Scheduled 1971 Screening for malignant [facility] 00:00:00 neoplasm of colon Medical Ce nter (procedure) [code = 592592223] Future Scheduled 1971 Screening for malignant [facility] 00:00:00 neoplasm of colon Medical Ce nter (procedure) [code = 263067988] Future Scheduled 1971 Screening for malignant [facility] 00:00:00 neoplasm of colon Medical Ce nter (procedure) [code = 468171685] Future Scheduled 1971 S[facility]oidoscopy [facility]] Medical Cente r Encounters Start End Encounter Admission Attending Care Care Encounter Source Date/Time Date/Time Type Type Clinicians Facility Department ID 2022-03-18 Out[facility] [id number] Common 12:58:01 [id number] [facility] 2022-02-21 Outpatient [facility] [id number] Common 14:10:02 [id number] [facility] 2021-03-14 Outpatient [facility] [id number] Common 13:31:16 [id number] [facility] 2021-03-14 Outpatient Rodney, [facility] [id number] Common 13:16:25 Avnee [id number] [facility] 2020-12-16 Emergency [facility] [id number] Univers 22:17:29 ity [facility] 2020-12-16 Emergency [facility] [id number] Univers 20:46:22 [facility] 2020-08-14 Inpatient ER JOSE YADAV Urology [id number] JOSE 03:51:00 NUZHAT 2022-10-29 2022-10-30 Inpatient ANNA Tyree [facility] [id number] [facility] 05:42:00 11:30:[address] [facility] 2022-10-30 2022-10-30 Outpatient FOG_Burke_R AOSM AOSM 658 [id number] Leti 00:00:00 00:00:00 Tereza [id number] [facility] 2022-10-30 2022-10-30 Outpatient FOG_Burke_R AOSM AOSM 658 [id number] Leti 00:00:00 00:00:00 Tereza [id number] [facility] 2022-10-30 2022-10-30 Outpatient FOG_Burke_R AOSM AOSM 658 [id number] Leti 00:00:00 00:00:00 Tereza [id number] [facility] 2022-10-30 2022-10-30 Outpatient FOG_Burke_R AOSM AOSM 658 [id number] Leti 00:00:00 00:00:00 Tereza [id number] [facility] 2022-10-23 2022-10-23 Outpatient FOG_Burke_R AOSM AOSM 658 [id number] Leti 00:00:00 00:00:00 Tereza [id number] [facility] 2022-10-22 2022-10-22 Outpatient GILLES Clements LABO [id number] [facility] 19:19:00 19:19:[address] 2022-10-18 2022-10-18 Outpatient FOG_Burke_R AOSM AOSM 658 [id number] Leti 00:00:00 00:00:00 Tereza [id number] [facility] 2022-10-12 2022-10-12 Outpatient FOG_Burke_R AOSM AOSM 658 1092-20 Leti 00:00:00 00:00:00 Tereza [id number] [facility] 2022-10-12 2022-10-12 Outpatient FOG_Burke_R AOSM AOSM 658 [id number] Leti 00:00:00 00:00:00 Tereza [id number] [facility] 2022-10-12 2022-10-12 Outpatient FOG_Burke_R AOSM AOSM 658 1092-20 Leti 00:00:00 00:00:00 Tereza [id number] [facility] 2022-10-11 2022-10-11 Outpatient FOG_Burke_R AOSM AOSM 658 1092-20 Leti 00:00:00 00:00:00 Tereza [id number] [facility] 2022-09-12 2022-09-12 Emergency X KERLINE, [facility] ERT [id number] Univers 07:42:00 11:45:00 NADIYA arias [facility] 2022-09-12 2022-09-12 Emergency [facility] 1.2.840.114 [id number] Univers 07:42:00 11:45:00 Nadiya BAEZ 350.1.13.10 ity of [place] 4.2.7.2.686 [facility] [phone] [facility] [address] 2022-03-18 2022-03-18 OFFICE [facility] [id number] Co mmon 00:00:00 00:00:[address] [facility] it PT LEVEL 4 - [facility] 2022-02-07 2022-02-07 [facility] 1.2.840.114 [id number] Univers 00:00:00 00:00:00 [facility] [id number] it y of [place] 4.2.7.2.686 [place] as LUIS?BLEA [phone] [address] MEDICAL OFFICE BUILDING 2022-02-07 2022-02-07 Orders Doctor DARRIAN 1.2.840.114 [id number] Univers 00:00:00 00:00:00 Only Unassigned, JUAN JOSE [id number] ity of [place] [facility] 4.2.7.2.686 [place] as [phone] [facility] [address] 2021-08-27 2021-08-27 Lab [facility] [id number] 00:00:00 00:00:00 [facility] 2020-12-20 2020-12-20 Outpatient Baum_L U [facility] [id number] [place] 11:25:00 11:25:00 [address] 2020-08-14 2020-08-18 [facility] [id number] 03:51:00 11:45:00 Encounter Deisy Rangel Michael [facility] 2020-08-14 2020-08-14 Travel [facility] [id number] [facility] 00:[facility] 00:00:00 [facility] 2020-08-07 2020-08-07 (TEL) STLMLC STLMLC [id number] Co mmon 00:00:00 00:00:00 [facility] 2020-08-04 2020-08-04 OFFICE STLMLC STLMLC [id number] Co mmon 00:00:00 00:00:00 VISIT MARIA VICTORIA Jaylin it PT LEVEL 4 - [facility] 2020-03-18 2020-03-19 Emergency Tee, Radha [facility] 1.2.840.114 [id number] Univers 18:44:00 00:48:00 Tammy Hatfield 350.1.13.10 i ty [facility] 4.2.7.2.686 [place] [facility] [phone] [facility] [address] 2020-03-18 2020-03-18 Outpatient Latoya MCFARLAND [facility] [id number] Univers 18:30:00 18:30:00 [facility] 2020-03-18 2020-03-18 Nurse Nurse, [facility] Urgent Care [facility] 1.2 .840.114 [id number] Univers 18:29:02 18:29:11 [facility] 350.1.13.10 ity [facility] 4.2.7.2.686 [facility] Professio [phone] Wi dicashlee triplett [address] [place] [address] 2020-03-18 2020-03-18 Outpatient Latoya [facility]LAND [facility] [id number] Univers 17:40:00 17:40:00 [facility] 2020-03-15 2020-03-15 Nurse Therapy, [facility] Covid Infusion [facility] 1.2.840.114 [id number] Univers 09:44:59 18:56:55 Visit Stefany Guerrero SPECIALTY 350.1.13.10 ity of CARE 4.2.7.2.686 [facility] CENTER AT [phone] Wi dicashlee PETER 053 [facility] 2020-03-15 2020-03-15 Nurse Therapy, [facility] 1.2.840.114 [id number] 09:44:59 18:56:55 Visit [facility] Covid SPECIALTY 350.1.13.10 Infusion CARE 4.2.7.2.686 CENTER AT [phone] [place] Conte3 [facility] 2020-03-15 2020-03-15 [facility] [id number] Univers 09:30:00 09:30:00 [facility] 2020-03-15 2020-03-15 Orders Doctor DARRIAN 1.2.840.114 [id number] Univers 00:00:00 00:00:00 Only Unassigned, JUAN JOSE 350.1.13.10 ity of [place] [facility] 4.2.7.2.686 [place] [phone] [facility] [address] 2020-03-15 2020-03-15 Orders Doctor DARRIAN 1.2.840.114 [id number] 00:00:00 00:00:00 Only Unassigned, JUAN JOSE 350.1.13.10 [place] [address].2.7.2.686 [id number] 009 2020-03-14 2020-03-14 [facility] [id number] Univers 09:00:00 09:00:00 [facility] 2020-03-12 2020-03-12 Emergency Pardo, Debby [facility] 1.2.840 .114 [id number] Univers 17:49:00 21:01:00 Stefany Guerrero 350.1.13.10 ity [facility] 4.2.7.2.686 [place] [facility] [phone] [facility] [address] [place] 2020-03-12 2020-03-12 Emergency X CESAR [facility] ERT [id number] Univers 17:49:00 21:01:00 [facility] Results Test Description Test Time Test Comments Results Result [facility] e Comments - XR PELVIS 02/182022-10-30 VIEWS 07:09:00 [facility] 1970 Sex: M Patient Name: LINDA ROSENTHAL Unit No: [id number] EXAMS: CPT CODE: [id number] XR PELVIS 1/2 VIEWS 08300 INTRAOPERATIVE LEG LENGTH FILM COMMENT: COMPARISON: No prior exams available. In progress left hip replacement is noted. AP portable left hip COMMENT: The patient is status post joint replacement which is articulating normally. at 0709 Reported and signed by: Samy Whitten MD CC: Solis Clements MD Technologist: Kemar Mancini R.T. Transcribed D/ (0709) ThonyJCL [facility] NAME: LINDA ROSENTHAL [address] [place] [address] PHYS: Solis Viera MD : 1970 AGE: 52 SEX: M [place] [address] LOC: Y.301 B PHONE #: [phone] EXAM DATE: 10/29/2022 STATUS: DIS IN FAX #: [phone] RAD #: D/C DT 10/30/2022 PAGE 1 Signed Report Patient Name: LINDA ROSENTHAL Unit No: [id number] EXAMS: CPT CODE: [id number] XR PELVIS 1/2 VIEWS 53492 (Continued) Orig Print D/T: S: 10/30/2022 (1255) [facility] NAME: LINDA ROSENTHAL [address] [place] [address] PHYS: Soils Viera MD : 1970 AGE: 52 SEX: M [place], [place] [address] LOC: Y.301 B PHONE #: [phone] EXAM DATE: 10/29/2022 STATUS: DIS IN FAX #: [phone] RAD #: D/C DT 10/30/2022 PAGE 2 Signed Report - XR PELVIS 1/2 2022-10-30 VIEWS 07:09:00 [facility] 1970 Sex: M Patient Name: LINDA ROSENTHAL Unit No: [id number] EXAMS: CPT CODE: [id number] XR PELVIS 1/2 VIEWS 98249 INTRAOPERATIVE LEG LENGTH FILM COMMENT: COMPARISON: No prior exams available. In progress left hip replacement is noted. AP portable left hip COMMENT: The patient is status post joint replacement which is articulating normally. at 0709 Reported and signed by: Samy Whitten MD CC: Solis Clements MD Technologist: Kemar Mancini R.T. Transcribed D/ (0709) JacintoL [facility] [place] [facility] NAME: LINAD ROSENTHAL [address] [facility] PHYS: Solis Viera MD : 1970 AGE: 52 SEX: M [place], [place] [address] LOC: Y.301 B PHONE #: [phone] EXAM DATE: 10/29/2022 STATUS: DIS IN FAX #: [phone] RAD #: D/C DT 10/30/2022 PAGE 1 Signed Report Patient Name: LINDA ROSENTHAL Unit No: [id number] EXAMS: CPT CODE: [id number] XR PELVIS 1/2 VIEWS 83653 (Continued) Orig Print D/T: S: 10/30/2022 (1255) [facility] NAME: LINDA ROSENTHAL [address] [facility] PHYS: Solis Viera MD : 1970 AGE: 52 SEX: M [place], [place] [address] LOC: Y.301 B PHONE #: [phone] EXAM DATE: 10/29/2022 STATUS: DIS IN FAX #: [phone] RAD #: D/C DT 10/30/2022 PAGE 2 Signed Report BASIC METABOLIC PANEL 2022-10-30 06:48:00 Test Item Value Reference Range Interpretation Comme nts SODIUM (test code = NA) 135 mmol/L 136-145 L POTASSIUM (test code = K) 4.3 mmol/L 3.5-5.1 N CHLORIDE (test code = CL) 99.0 mmol/L 98-107 N CARBON DIOXIDE (test code = 27.4 mmol/L 21-32 N CO2) GLUCOSE (test code = GLU) 203 mg/dL 74-106 H BLOOD UREA NITROGEN (test 14 mg/dL 7-18 N code = BUN) GLOMERULAR FILTRATION RATE 91.1 >60 T he Glomerular Filtration Rate (test code = GFR) is a calcu lated parameterbased on serum Creati nine, patient age and sex. GFR va luesless than 60 mL/min/1.73 squ are meters are indicative ofCh ronic Kidney Disease. Values less than 15 mL/min/1.73squa re meters indicate Kidney failure. The calculation for GFR is based on the CKD-EPI (20 21) calculation. This formulais race indifferent and is the dora mmended formula for GFRby the [facility] Kidney Foundation for Adults.The GFR will not calcul ate if the sex is unknown or if t hepatient's age is <18 years. CREATININE (test code = 1.00 mg/dL 0.70-1.30 N CREAT) CALCIUM (test code = CA) 9.2 mg/dL 8.5-10.1 N SPECIMEN COMMENT: POD #[id number] 05:57:00 Test Item Value Reference Range Interpretation Comments HEMOGLOBIN (test code = HGB) 12.0 g/dL 12-16 N HEMATOCRIT (test code = HCT) 36.2 % 37-47 L SPECIMEN COMMENT: POD #[id number] 05:24:00 Test Item Value Reference Range Interpretation Comments GLUBED (test code = 190 mg/dL 60-99 H The norm al fasting GLUBED) blood glucose r cj for a non-diabetica dult is 60-99 mg/dL. Tw o hours after meals, no rmal blood glucose l evels should beless t ibrahim 140 mg/dL.Please no te new normal range. [id number] 22:30:00 Test Item Value Reference Range Interpretation Comments GLUBED (test code = 223 mg/dL 60-99 H The norm al fasting GLUBED) blood glucose r cj for a non-diabetica dult is 60-99 mg/dL. Tw o hours after meals, no rmal blood glucose l evels should beless t ibrahim 140 mg/dL.Please no te new normal range. [id number] 16:56:00 Test Item Value Reference Range Interpretation Comments GLUBED (test code = 207 mg/dL 60-99 H The norm al fasting GLUBED) blood glucose r cj for a non-diabetica dult is 60-99 mg/dL. Tw o hours after meals, no rmal blood glucose l evels should beless t ibrahim 140 mg/dL.Please no te new normal range. [id number] 09:21:00 Test Item Value Reference Range Interpretation Comments GLUBED (test code = 174 mg/dL 60-99 H The norm al fasting GLUBED) blood glucose r cj for a non-diabetica dult is 60-99 mg/dL. Tw o hours after meals, no rmal blood glucose l evels should beless t ibrahim 140 mg/dL.Please no te new normal range. [id number] 06:41:00 Test Item Value Reference Range Interpretation Comments GLUBED (test code = 118 mg/dL 60-99 H The norm al fasting GLUBED) blood glucose r cj for a non-diabetica dult is 60-99 mg/dL. Tw o hours after meals, no rmal blood glucose l evels should beless t ibrahim 140 mg/dL.Please no te new normal range. GLYCOSYLATED HEMOGLOBIN (HA1C)2022-10-22 20:42:00 Test Item Value Reference Range Interpretation Comments GLYCOSYLATED 8.3 % 4.8-5.9 H Any condition t hat shortens HEMOGLOBIN (HA1C) erythocyte survival or (test code = GLYHGB) decreas esmean erythrocyte age (e.g., dora very from acute blood los s,hemolytic anemai) will fa lsely lower HGBA1c resultsr egardless of the method used . HGBA1c results frompat ients with HbSS, HbCC and HbSc must be interpreted wit hcaution given the patho logical processes, incl uding anemia,increase d red cell turnover, trans fusion requirements, t hatadversely impact HGBA1c a s a marker of long-term glycemiccontrol . Alternative for ms of testing such as fructosaminesho uld be considered for these patients.Any co ndition that shortens erytho cyte survival or dec reasesmean erythrocyte age (e.g., recovery from a cute blood loss,hemolytic anemia) will falsely lower H GBA1c resultsregardle ss of the method used. HG BA1c results from patientswi th HbSS, HbCC, and HbSc must be interpreted wit h cautiongiven th e pathological pr ocesses, including anemi a,increased red cell turnov er, transfusion req uirements, thatadversely i mpact HGBA1c as a marker of long-term glycemiccontrol . Alternative for ms of testing such as fructosaminesho uld be considered for these patients.DONE A T: [facility] [address] [facility] [place], [place] [address] GLYCOSYLATED HEMOGLOBIN (HA1C)2022-10-22 20:42:00 Test Item Value Reference Range Interpretation Comments GLYCOSYLATED 8.3 % 4.8-5.9 H Any condition t hat shortens HEMOGLOBIN (HA1C) erythocyte survival or (test code = GLYHGB) decreas esmean erythrocyte age (e.g., dora very from acute blood los s,hemolytic anemia) will fa lsely lower HGBA1c resultsr egardless of the method used . HGBA1c results from pa abel HbSS, HbCC, and HbSc must be interpreted with cautiongiven th e pathological pr ocesses, including anemi a,increased red cell turnov er, transfusion req uirements, thatadversely i mpact HGBA1c as a marker of long-term glycemiccontrol . Alternative for ms of testing such as fructosaminesho uld be considered for these patients. COMPREHENSIVE METABOLIC [id number] 20:04:00 Test Item Value Reference Range Interpretation Comments SODIUM (test code = 138 mmol/L 136-145 N NA) POTASSIUM (test code 3.8 mmol/L 3.5-5.1 N = K) CHLORIDE (test code 99.0 mmol/L 98-107 N = CL) CARBON DIOXIDE (test 26.2 mmol/L 21-32 N code = CO2) GLUCOSE (test code = 173 mg/dL 74-106 H GLU) BLOOD UREA NITROGEN 10 mg/dL 7-18 N (test code = BUN) GLOMERULAR 104.1 >60 The Glomerular FILTRATION RATE Filtration R ate is a (test code = GFR) calculated parameterbased on serum Creatinin e, patient age and sex. GFR valuesless than 60 mL/min/1.73 squ are meters are jhony cative ofChronic Kidne y Disease. Values less than 15 mL/min/1.73squa re meters indicate Kidney failure. The calculation for GFR is based on the CK D-EPI (2020) calculat ion. This formulais race indifferent and is the recommended for andrew for GFRby the N ational Kidney Foundati on for Adults.The GFR will not calculate i f the sex is unknown or if thepatient's ag e is <18 years. CREATININE (test 0.88 mg/dL 0.70-1.30 N code = CREAT) TOTAL PROTEIN (test 8.2 g/dL 6.4-8.2 N code = PROT) ALBUMIN (test code = 4.4 g/dL 3.4-5.0 N ALB) GLOBULIN (test code 3.8 g/dL 2.2-4.2 N = GLOB) ALBUMIN/GLOBULIN 1.2 0.7-2.0 N RATIO (test code = A/G) CALCIUM (test code = 10.0 mg/dL 8.5-10.1 N CA) BILIRUBIN TOTAL 0.40 mg/dL 0.2-1.00 N (test code = BILT) SGOT/AST (test code 97.0 U/L 15-37 H = AST) SGPT/ALT (test code 92.0 U/L 16-63 H = ALT) ALKALINE PHOSPHATASE 67 U/L 46-116 N TOTAL (test code = ALKP) CBC W/AUTO [id number] 19:31:00 Test Item Value Reference Range Interpretation Comments WHITE BLOOD CELL (test 6.8 K/mm3 5.5-11.0 N Pleas e note new code = WBC) normal range. RED BLOOD CELL (test 4.87 M/mm3 4.2-5.4 N code = RBC) HEMOGLOBIN (test code = 13.9 g/dL 12-16 N HGB) HEMATOCRIT (test code = 41.6 % 37-47 N HCT) MEAN CELL VOLUME (test 85 fL 80-98 N code = MCV) MEAN CELL HGB (test code 28.5 pg 27-34 N = MCH) MEAN CELL HGB 33.4 g/dL 30.8-34.1 N CONCENTRATION (test code = MCHC) RED CELL DISTRIBUTION 14.1 % 11-16 N WIDTH (test code = RDW) PLT (test code = PLT) 356 K/mm3 130-400 N MEAN PLATELET VOLUME 10.3 fL 8.9-12.1 N (test code = MPV) NEUTROPHIL % (test code 42.9 % 45-70 L = NT%) LYMPHOCYTE % (test code 45.0 % 20-40 H = LY%) MONOCYTE % (test code = 8.1 % 3-10 N MO%) EOSINOPHIL % (test code 3.1 % 1-5 N = EO%) BASOPHIL % (test code = 0.6 % 0.0-1.1 N BA%) NEUTROPHIL # (test code 2.91 K/mm3 2.00-7.50 N = NT#) LYMPHOCYTE # (test code 3.05 K/mm3 1.50-4.00 N = LY#) MONOCYTE # (test code = 0.55 K/mm3 0.2-0.8 N MO#) EOSINOPHIL # (test code 0.21 K/mm3 0.04-0.4 N = EO#) BASOPHIL # (test code = 0.04 K/mm3 0.02-0.10 N BA#) MANUAL DIFF REQUIRED NO MANUAL DIFF (test code = MDIFF) NUCLEATED RED BLOOD CELL 0 % 0-0 N (test code = NRBC) CBC WITH [id number] 14:26:40 Test Item Value Reference Range Interpretation Comments WBC (test code = 6.76 See_Comment [Automated 0690-2) message] The sy stem which generated this result transmitted reference range : 4.20 - 10.70 10*3/?L. The reference range was not used to interpret this result as normal/abnormal . RBC (test code = 5.03 See_Comment [Automated 789-8) message] The sy stem which generated this result transmitted reference range : 4.26 - 5.52 10*6/?L. The reference range was not used to interpret this result as normal/abnormal . HGB (test code = 14.7 g/dL 12.2-16.4 718-7) HCT (test code = 43.8 % 38.4-49.3 4544-3) MCV (test code = 87.1 fL 81.7-95.6 787-2) MCH (test code = 29.2 pg 26.1-32.7 785-6) MCHC (test code = 33.6 g/dL 31.2-35.0 786-4) RDW-SD (test code = 43.8 fL 38.5-51.6 72444-6) RDW-CV (test code = 13.8 % 12.1-15.4 788-0) PLT (test code = 295 See_Comment [Automated 777-3) message] The sy stem which generated this result transmitted reference range : 150 - 328 10*3/ ?L. The reference r cj was not used to interpret this result as normal/abnormal . MPV (test code = 11.2 fL 9.8-13.0 94368-9) IPF % (test code = 6.0 % 1.2-10.7 Platelet count [id number]) measured by fluorescence method. NRBC/100 WBC (test 0.0 See_Comment [Automat ed code = [id number]) message] The system which generated this result transmitted reference range : 0.0 - 10.0 /100 WBCs. The refer ence range was not u sed to interpret th is result as normal/abnormal . NRBC x10^3 (test code See_Comment [Auto mated = [id number]) message] The s ystem which generated this result transmitted reference range : 10*3/?L. The reference range was not used to interpret this result as normal/abnormal . GRAN MAT (NEUT) % 42.6 % (test code = 770-8) IMM GRAN % (test code 0.30 % = 3773120599) LYMPH % (test code = 45.4 % 736-9) MONO % (test code = 9.5 % 5905-5) EOS % (test code = 1.8 % 713-8) BASO % (test code = 0.4 % 706-2) GRAN MAT x10^3(ANC) 2.88 10*3/uL 1.99-6.95 (test code = 0350874656) IMM GRAN x10^3 (test 0.00-0.06 code = 4722665358) LYMPH x10^3 (test code 3.07 10*3/uL 1.09-3.23 = 731-0) MONO x10^3 (test code 0.64 10*3/uL 0.36-1.02 = 742-7) EOS x10^3 (test code = 0.12 10*3/uL 0.06-0.53 711-2) BASO x10^3 (test code 0.03 10*3/uL 0.01-0.09 = 704-7) EDVIN CELLS (test code 2+ See_Comment A [Auto mated = 2468-9) message] The sy stem which generated this result transmitted reference range : (none). The reference range was not used to interpret this result as normal/abnormal . LG GRAN LYMPHS (test Rare Rare code = 8960324483) REACT LYMPHS (test Rare code = 3605983365) GIANT PLATELETS (test Present See_Comment A [Auto mated code = 5508-9) message] The system which generated this result transmitted reference range : (none). The reference range was not used to interpret this result as normal/abnormal . Lab Interpretation Abnormal (test code = 92107-2) [id number]55:30 Test Item Value Reference Range Interpretation Comments TROPONIN I (test code = 0.034 ng/mL <=0.034 6772073706) ЕЛЕНА (test code = ЕЛЕНА) Reference (Normal) Range (defined by the 99th percentile reference limit): <= 0.034 ng/mL Note: Cardiac troponin begins to rise 3-4 hours after the onset of ischemia. Repeat in 4-6 hours if the sample was drawn within 3-4 hours of the onset of the symptom and found normal. Diagnosis of myocardial injury is made with acute changes in cTn concentrations with at least one serial sample above the 99th percentile upper reference limit (URL), taken together with the patient's clinical presentation. Biotin has been reported to cause a negative bias, interpret results relative to patient's use of biotin. Lab Interpretation Normal (test code = 37214-3) [facility] 13[facility]43:48 Test Item Value Reference Range Interpretation Comments LIPASE (test code = 7139332416) 59 U/L 0-220 Lab Interpretation (test code = Normal 40679-0) [facility] GLUCOSE (AUTOMATED)2022-09-12 13:15:24 Test Item Value Reference Range Interpretation Comments POCT GLU (test code = 5803903759) 142 mg/dL 70-110 H Lab Interpretation (test code = Abnormal 35752-8) [facility] GLUCOSE(AGE >30DAYS)2022-09-12 13:07:00 Test Item Value Reference Range Interpretation Comments POCT Glu (age>30days) (test code = 142 mg/dL 70-110 A 3342) Lab Interpretation (test code = Abnormal 00596-9) [facility] eirglumq8553-05-31 10:38:58 Test Item Value Reference Range Interpretation Comments Hepatitis C Ab (test code = Nonreactive Nonreactive 17936-3) ЕЛЕНА (test code = ЕЛЕНА) Bladder Cleaner ID - DB Lab Interpretation (test Normal code = 63392-0) [facility] qeqwdjlm8676-15-88 10:38:58 Test Item Value Reference Range Interpretation Comments Hepatitis C Ab (test code = Nonreactive Nonreactive 76886-0) ЕЛЕНА (test code = ЕЛЕНА) Bladder Cleaner ID - DB Lab Interpretation (test Normal code = 82473-2) [facility] [id number] 10:38:58 Test Item Value Reference Range Interpretation Comments HEPATITIS C ANTIBODY (BEAKER) Nonreactive Nonreactive (test code = 367) Bladder Cleaner ID - DBBlood Culture - Routine (Left Venipuncture)2020-08-19 10:01:00 Test Item Value Reference Range Interpretation Comments Result (test code = No growth in 5 days 6463-4) [facility] ([facility] Venipuncture)2020-08-19 10:01:00 Test Item Value Reference Range Interpretation Comments Result (test code = No growth in 5 days 6463-4) [facility] [id number] 10:01:00 Test Item Value Reference Range Interpretation Comments CULTURE (BEAKER) (test No growth in 5 days code = 1095) BLOOD [id number] 10:01:00 Test Item Value Reference Range Interpretation Comments CULTURE (BEAKER) (test No growth in 5 days code = 1095) POC-Glucose dyzfz7013-14-76 08:00:00 Test Item Value Reference Range Interpretation Comments POC-Glucose Meter (test 249 mg/dL 70-110 H : TE STED AT [facility] code = 1538) [address] [place] [place] [id number]: Bladder Cleaner/Techni adrian ID = [id number] for Estevan Bright Lab Interpretation (test Abnormal code = 78467-4) [facility] fhiqh8583-41-14 08:00:00 Test Item Value Reference Range Interpretation Comments POC-Glucose Meter (test 249 mg/dL 70-110 H : TE STED AT [facility] code = 1538) [address] [place] [address]: Bladder Cleaner/Techni adrian ID = [id number] for Estevan Bright Lab Interpretation (test Abnormal code = 78003-1) [facility] [id number] 08:00:00 Test Item Value Reference Range Interpretation Comments POC-GLUCOSE METER 249 mg/dL 70-110 H : TESTED A T [facility] 1317 (BEAKER) (test code [facility], = 1538) [place] [address]: Bladder Cleaner/Techni adrian ID = [id number] for Ventura Aguilar CBC with platelet count + automated zjuq2617-20-13 05:55:00 Test Item Value Reference Range Interpretation Comments WBC (test code = 6690-2) 4.8 See_Comment [A utomated message] The system [employer] generated this result transmitted ref erence range: 4.0 - 10 .0 K/L. The refe rence range was not u sed to interpret this result as normal/abnor mal. RBC (test code = 789-8) 4.22 See_Comment [Au tomated message] The system [employer] generated this result transmitted ref erence range: 4.20 - 5 .80 M/L. The refe rence range was not u sed to interpret this result as normal/abnor mal. MCHC (test code = 786-4) 33.5 See_Comment L [A utomated message] The system [employer] generated this result transmitted ref erence range: [...] See_Comment [Aut omated message] 777-3) The system [employer] generated this result transmitted ref erence range: 150 - 43 0 K/CU MM. The referen ce range was not u sed to interpret this result as normal/abnor mal. MPV (test code = 10.3 fL 6.0-11.5 89047-7) nRBC (test code = 413) 0 See_Comment [Aut omated message] The system [employer] generated this result transmitted ref erence range: 0 - 0 /1 00 WBC. The refere nce range was not u sed to interpret this result as normal/abnor mal. Lab Interpretation (test Abnormal code = 89812-9) [facility] Hospital[facility] Cvcdsiswrviy9784-63-07 05:55:00 Test Item Value Reference Range Interpretation Comments % Neutros (manual) (test 33 % code = 1359) % Lymphs (manual) (test 55 % code = 1360) % Monos (manual) (test 8 % code = 1361) % Eos (manual) (test 4 % code = 1362) # Neutros (manual) (test 1.58 See_Comment L [A utomated message] code = 1365) The system [employer] generated this result transmitted ref erence range: 1.80 - 8 .00 K/L. The refe rence range was not u sed to interpret this result as normal/abnor mal. # Lymphs (manual) (test 2.64 See_Comment [Au tomated message] code = 1366) The system [employer] generated this result transmitted ref erence range: 1.48 - 4 .50 K/L. The refe rence range was not u sed to interpret this result as normal/abnor mal. # Monos (manual) (test 0.38 See_Comment [Aut omated message] code = 1367) The system [employer] generated this result transmitted ref erence range: 0.00 - 1 .30 K/L. The refe rence range was not u sed to interpret this result as normal/abnor mal. # Eos (manual) (test 0.19 See_Comment [Autom ated message] code = 1368) The system [employer] generated this result transmitted ref erence range: 0.00 - 0 .50 K/L. The refe rence range was not u sed to interpret this result as normal/abnor mal. Total Counted (test code 100 = 1351) WBC Morphology (test Normal code = 487) Platelet Morphology Normal (test code = 486) RBC Morphology (test Normal code = 762) Lab Interpretation (test Abnormal code = 51793-9) [facility] with platelet count + automated lkoh9770-70-87 05:55:00 Test Item Value Reference Range Interpretation Comments WBC (test code = 6690-2) 4.8 See_Comment [A utomated message] The system [employer] generated this result transmitted ref erence range: 4.0 - 10 .0 K/L. The refe rence range was not u sed to interpret this result as normal/abnor mal. RBC (test code = 789-8) 4.22 See_Comment [Au tomated message] The system [employer] generated this result transmitted ref erence range: 4.20 - 5 .80 M/L. The refe rence range was not u sed to interpret this result as normal/abnor mal. MCHC (test code = 786-4) 33.5 See_Comment L [A utomated message] The system [employer] generated this result transmitted ref erence range: [...] See_Comment [Aut omated message] 777-3) The system [employer] generated this result transmitted ref erence range: 150 - 43 0 K/CU MM. The referen ce range was not u sed to interpret this result as normal/abnor mal. MPV (test code = 10.3 fL 6.0-11.5 73308-0) nRBC (test code = 413) 0 See_Comment [Aut omated message] The system [employer] generated this result transmitted ref erence range: 0 - 0 /1 00 WBC. The refere nce range was not u sed to interpret this result as normal/abnor mal. Lab Interpretation (test Abnormal code = 53305-4) [facility] Ruyoavmnwqlk1458-51-97 05:55:00 Test Item Value Reference Range Interpretation Comments % Neutros (manual) (test 33 % code = 1359) % Lymphs (manual) (test 55 % code = 1360) % Monos (manual) (test 8 % code = 1361) % Eos (manual) (test 4 % code = 1362) # Neutros (manual) (test 1.58 See_Comment L [A utomated message] code = 1365) The system [employer] generated this result transmitted ref erence range: 1.80 - 8 .00 K/L. The refe rence range was not u sed to interpret this result as normal/abnor mal. # Lymphs (manual) (test 2.64 See_Comment [Au tomated message] code = 1366) The system [employer] generated this result transmitted ref erence range: 1.48 - 4 .50 K/L. The refe rence range was not u sed to interpret this result as normal/abnor mal. # Monos (manual) (test 0.38 See_Comment [Aut omated message] code = 1367) The system [employer] generated this result transmitted ref erence range: 0.00 - 1 .30 K/L. The refe rence range was not u sed to interpret this result as normal/abnor mal. # Eos (manual) (test 0.19 See_Comment [Autom ated message] code = 1368) The system [employer] generated this result transmitted ref erence range: 0.00 - 0 .50 K/L. The refe rence range was not u sed to interpret this result as normal/abnor mal. Total Counted (test code 100 = 1351) WBC Morphology (test Normal code = 487) Platelet Morphology Normal (test code = 486) RBC Morphology (test Normal code = 762) Lab Interpretation (test Abnormal code = 69164-1) [facility] W/PLT COUNT & AUTO [id number] 05:55:00 Test Item Value Reference Range Interpretation [...] (test code Normal = 762) Basic Metabolic Tbhwh7872-58-67 05:36:00 Test Item Value Reference Range Interpretation Comments Sodium (test code = 138 meq/L 295-078 1654-2) Potassium (test code = 3.9 meq/L 3.6-5.5 2823-3) Chloride (test code = 105 meq/L 98-106 2075-0) CO2 (test code = 22 meq/L 20-29 8-9) BUN (test code = 4 mg/dL 10-26 L 3094-0) Creatinine (test code 0.91 mg/dL 0.50-1.20 = 2160-0) Glucose (test code = 285 mg/dL 70-110 H 2345-7) Calcium (test code = 9.7 mg/dL 8.5-10.5 71536-8) EGFR (test code = 107 mL/min/1.73 [place] [address]-2) NOT ACCURATE CREATININE CLEARANCE IN PREDICTING GLOMERULAR FILTRATION RATE . ESTIMATED GFR I S NOT APPLICABLE FOR DIALYSIS PATIENTS. ЕЛЕНА (test code = ЕЛЕНА) Bladder Cleaner ID - [id number] ID - [id number] ID - [id number] ID - gwkd49Fjsnpfau ID - rysc61Lavzjagv ID - qgba32Ezpzaxdo ID - pmsc24Sdyirrei ID - bvwd42Bhcvapif ID - phhp12Ihiygcyg ID - iysn74Kucfpefa ID - ddxo76Ntxgrvva ID - aejr34Tcxggrpq ID - zdxs12 Lab Interpretation Abnormal (test code = 57790-6) [facility] Metabolic Ejbdg6706-50-45 05:36:00 Test Item Value Reference Range Interpretation Comments Sodium (test code = 138 meq/L 733-109 2174-2) Potassium (test code = 3.9 meq/L 3.6-5.5 2823-3) Chloride (test code = 105 meq/L 98-106 2075-0) CO2 (test code = 22 meq/L 20-29 2028-9) BUN (test code = 4 mg/dL 10-26 L 3094-0) Creatinine (test code 0.91 mg/dL 0.50-1.20 = 2160-0) Glucose (test code = 285 mg/dL 70-110 H 2345-7) Calcium (test code = 9.7 mg/dL 8.5-10.5 75307-9) EGFR (test code = 107 mL/min/1.73 sq [place] [address]-8) NOT ACCURATE CREATININE CLEARANCE IN PREDICTING GLOMERULAR FILTRATION RATE . ESTIMATED GFR I S NOT APPLICABLE FOR DIALYSIS PATIENTS. ЕЛЕНА (test code = ЕЛЕНА) Bladder Cleaner ID - [id number] ID - [id number] ID - vvxf43Ufebhojn ID - eaah56Xibqgnqn ID - vnym79Mdsppzas ID - ytyn70Gfwvkevr ID - cuoy04Uhklnyrq ID - adef68Zjnanjpp ID - ccmr37Vixwyzas ID - nlhx30Wvoupkvh ID - nvwn14Dzjkhhlp ID - nlya66Thxgyodm ID - zdxs12 Lab Interpretation Abnormal (test code = 54661-2) [facility] [id number] 05:36:00 Test Item Value Reference Range Interpretation [...] S NOT APPLICABLE FOR DIALYSIS PATIEN TS. Bladder Cleaner ID - [id number] ID - lyat77Vbidfqmd ID - sogt64Quercrpo ID - pcee47Jtglwqsj ID - tmlv84Pfqloain ID - chen19Xoilylve ID - rkmr45Tsgnvkux ID - jmen55Iyodlvwm ID - zhxb41Dyrlfujt ID - kzhu17Vnllbmxd ID - egbw82Nikfpmha ID - itfu90Nyoxolzc ID - kdto42CBDX-BXPZUBO CYVSD7069-69-26 20:26:00 Test Item Value Reference Range Interpretation Comments POC-GLUCOSE METER 183 mg/dL 70-110 H : TESTED A T [facility] [address] (BEAKER) (test code [address], = 1538) [facility] [address]: Bladder Cleaner/Techni adrian ID = [id number] for Halima Neff POCT-GLUCOSE CRVRS9161-96-26 16:44:00 Test Item Value Reference Range Interpretation Comments POC-GLUCOSE METER 196 mg/dL 70-110 H : TESTED A T [facility] [address] (BEAKER) (test code [address], = 1538) [place] [address]: Bladder Cleaner/Techni adrian ID = [id number] for Alicia Barcenas POCT-GLUCOSE JXNFK5112-43-58 11:16:00 Test Item Value Reference Range Interpretation Comments POC-GLUCOSE METER 320 mg/dL 70-110 H : TESTED A T [facility] [address] (BEAKER) (test code [address], = 1538) [place] [address]: Bladder Cleaner/Techni adrian ID = [id number] for Alicia Barcenas CBC W/PLT COUNT & AUTO AYTSJTFHDADX9180-26-56 09:00:00 Test Item Value Reference Range Interpretation [...] MORPHOLOGY (BEAKER) (test code Normal = 762) Quunojcjz8351-98-09 08:35:00 Test Item Value Reference Range Interpretation Comments Magnesium (test code = 1.9 mg/dL 1.5-3.0 09691-9) ЕЛЕНА (test code = ЕЛЕНА) Bladder Cleaner ID - [id number] ID - [id number] ID - [id number] ID - [id number] Lab Interpretation (test Normal code = 03770-6) [facility] 08:[facility] Test Item Value Reference Range Interpretation Comments Magnesium (test code = 1.9 mg/dL 1.5-3.0 59143-3) ЕЛЕНА (test code = ЕЛЕНА) Bladder Cleaner ID - [id number] ID - [id number] ID - [id number] ID - [id number] Lab Interpretation (test Normal code = 17090-2) [facility] 08:35:00 Test Item Value Reference Range Interpretation Comments MAGNESIUM (BEAKER) (test code = 1.9 mg/dL 1.5-3.0 627) Bladder Cleaner ID - [id number] ID - [id number] ID - [id number] ID - [id number] METABOLIC [id number] 08:34:00 Test Item Value Reference Range Interpretation [...] S NOT APPLICABLE FOR DIALYSIS PATIEN TS. Bladder Cleaner ID - [id number] ID - [id number] ID - [id number] ID - CQNBK548Wwvceszd ID - AMUBF282Mokvrueo ID - [id number] ID - QHPLY189Rygugipt ID - [id number] ID - OEBCK980Xiqtcvkd ID - [id number] Vancomycin level, fgcdoq0653-73-16 06:00:00 Test Item Value Reference Range Interpretation Comments Vancomycin Tr (test code = 11.1 ug/mL 10.0-20.0 4092-3) ЕЛЕНА (test code = ЕЛЕНА) Bladder Cleaner ID - [id number] Lab Interpretation (test Normal code = 27920-3) [facility], zxdjnu7606-84-89 06:00:00 Test Item Value Reference Range Interpretation Comments Vancomycin Tr (test code = 11.1 ug/mL 10.0-20.0 4092-3) ЕЛЕНА (test code = ЕЛЕНА) Bladder Cleaner ID - [id number] Lab Interpretation (test Normal code = 23168-4) [facility] HospitalVANCOMYCIN LEVEL, [id number] 06:00:00 Test Item Value Reference Range Interpretation Comments VANCOMYCIN TROUGH (BEAKER) (test 11.1 ug/mL 10.0-20.0 code = 522) Bladder Cleaner ID - [id number] [id number] 21:21:00 Test Item Value Reference Range Interpretation Comments POC-GLUCOSE METER 270 mg/dL 70-110 H : TESTED A T [facility] [address] (BEAKER) (test code [address], = 1538) [place] [address]: Bladder Cleaner/Techni adrian ID = [id number] for Aanu nisha singhicity POCT-GLUCOSE [id number] 17:13:00 Test Item Value Reference Range Interpretation Comments POC-GLUCOSE METER 266 mg/dL 70-110 H : TESTED A T [facility] [address] (BEAKER) (test code [address], = 1538) [place] [address]: Bladder Cleaner/Techni adrian ID = [id number] for Garrett h, Nilam POCT-GLUCOSE [id number] 12:01:00 Test Item Value Reference Range Interpretation Comments POC-GLUCOSE METER 283 mg/dL 70-110 H : TESTED A T [facility] [address] (BEAKER) (test code [address], = 1538) [place] [address]: Bladder Cleaner/Techni adrian ID = [id number] for Garrett h, Nilam POCT-GLUCOSE NVWCU7430-89-91 08:47:00 Test Item Value Reference Range Interpretation Comments POC-GLUCOSE METER 253 mg/dL 70-110 H : TESTED A T [facility] [address] (BEAKER) [facility] [address] = [address]) [place] [address]: Bladder Cleaner/Techni adrian ID = [id number] for [place] ins, Nury Urine vsmedjp8055-70-80 08:39:00 Test Item Value Reference Range Interpretation Comments Result (test code = 6463-4) No growth [facility] lllftgh2544-81-03 08:39:00 Test Item Value Reference Range Interpretation Comments Result (test code = 6463-4) No growth [facility] [id number] 06:09:00 Test Item Value Reference Range Interpretation [...] S NOT APPLICABLE FOR DIALYSIS PATIEN TS. Bladder Cleaner ID - LITOOperator ID - LITOOperator ID - LITOOperator ID - LITOOperator ID - LITOOperator ID - LITOOperator ID - LITOOperator ID - LITOOperator ID - LITOOperator ID - LITOOperator ID - LITOOperator ID - LITOOperator ID - LITOCBC W/PLT COUNT & AUTO [id number] 05:40:00 Test Item Value Reference Range Interpretation [...] PERCENT (BEAKER) (test code = 2801) POCT-GLUCOSE [id number] 21:41:00 Test Item Value Reference Range Interpretation Comments POC-GLUCOSE METER 270 mg/dL 70-110 H : TESTED A T [facility] 1317 ([facility] (test code [facility] [address], = 1538) [facility] 77 478: Bladder Cleaner/Techni adrian ID = [id number] for Lorenza Castanon VANCOMYCIN LEVEL, [id number] 20:39:00 Test Item Value Reference Range Interpretation Comments VANCOMYCIN TROUGH (BEAKER) (test 6.1 ug/mL 10.0-20.0 L code = 522) Bladder Cleaner ID - [id number] JRSHG1194-05-18 17:05:00 Test Item Value Reference Range Interpretation Comments POC-GLUCOSE METER 295 mg/dL 70-110 H : Notified RN/MD: TESTED (BEAKER) (test code AT [facility] = 1538) [facility] [address]: Bladder Cleaner/Techni adrian ID = [id number] for Evan Husain CT, [id number] 15:49:00Unlisted Reason for Exam - Click Yes and Enter Reason Below->YesConcern for groin abscessUnlistedReason for Exam->Concern for right groin \\T\\ perineal abscess vs nec fascWill this procedure require oral contrast?->NoPROVIDENCE [facility]: LIN[facility] ROS[facility]HAL : 1970 Sex: [...] Huerta Verified Date/Time: 08/15/2020 15:49:43 Reading Location: [facility] Diagnostic Imaging Reading Room [place] [address] POCT-GLUCOSE [id number] 11:18:00 Test Item Value Reference Range Interpretation Comments POC-GLUCOSE METER 288 mg/dL 70-110 H : Notified RN/MD: TESTED (ABIODUN) (test code AT [facility] [address] [place] [address] = 1538) [facility] [address]: Bladder Cleaner/Techni adrian ID = [id number] for Evan Husain POCT-GLUCOSE [id number] 07:33:00 Test Item Value Reference Range Interpretation Comments POC-GLUCOSE METER 295 mg/dL 70-110 H : Notified RN/MD: TESTED (ABIODUN) (test code AT [facility] [address] = 1538) [facility] [address]: Bladder Cleaner/Techni adrian ID = [id number] for Evan Husain BASIC METABOLIC [id number] 05:52:00 Test Item Value Reference Range Interpretation [...] S NOT APPLICABLE FOR DIALYSIS PATIEN TS. Bladder Cleaner ID - LITOOperator ID - LITOOperator ID - LITOOperator ID - LITOOperator ID - LITOOperator ID - LITOOperator ID - LITOOperator ID - LITOOperator ID - LITOOperator ID - LITOOperator ID - LITOOperator ID - LITOCBC W/PLT COUNT & AUTO [id number] 05:19:00 Test Item Value Reference Range Interpretation [...] PERCENT (BEAKER) (test code = 2801) POCT-GLUCOSE [id number] 21:11:00 Test Item Value Reference Range Interpretation Comments POC-GLUCOSE METER 279 mg/dL 70-110 H : TESTED A T [facility] [address] (BEAKER) (test code [address], = 1538) [facility] 77 478: Bladder Cleaner/Techni adrian ID = [id number] for Aanu siem, felicity SARS-CoV2/RT-PCR (Asymptomatic ONLY)2020-08-14 18:18:00 Test Item Value Reference Range Interpretation Comments SARS-COV2/RT-PCR Negative Not Detected, Performanc e of the Xpert (test code = Negative, See Xpress 88865-8) external report SARS-CoV-2/F andrea/RSV test for linked [...] an EUA for use by authoriz ed [employer]. T his test is only authori zed [...] Fact Sh eet for Healthcare Prov iders: https://www.[employer]/ Documents/Xpert %20Xpress %33KXOF-CgW-1-F andrea-RSV/30 2-4508%20Rev.%2 0B%20HCP% 20Fact%20Sheet. pdf Fact Sheet for Healt hcare Patients: https://www.[employer]ab/ Documents/Xpert %20Xpress %50ZWTO-DnO-4-F andrea-RSV/30 2-4507%20Rev.%2 0B%20Pati ent%20Fact%20Sh eet.pdf SARS-COV-2 SL[facility] Performed at:[facility] PERFORMING LAB [facility] nyplfz6067 (test code = [address] [address]-2) [place] [address] ph: [phone] [facility] (Asymptomatic ONLY)2020-08-14 18:18:00 Test Item Value Reference Range Interpretation Comments SARS-COV2/RT-PCR Negative Not Detected, Performanc e of the Xpert (test code = Negative, See Xpress 11474-9) external report SARS-CoV-2/F andrea/RSV test for linked [...] an EUA for use by authoriz ed [employer]. T his test is only authori zed [...] Fact Sh eet for Healthcare Prov iders: https://www.[employer]/ Documents/Xpert %20Xpress %63QOTB-QqM-6-F andrea-RSV/30 2-4508%20Rev.%2 0B%20HCP% 20Fact%20Sheet. pdf Fact Sheet for Healt hcare Patients: https://www.[employer]/ Documents/Xpert %20Xpress %12RMRO-KuL-6-F andrea-RSV/30 2-4507%20Rev.%2 0B%20Pati ent%20Fact%20Sh eet.pdf SARS-COV-2 SLSL Performed at:[facility] PERFORMING LAB [address] (test code = [address] [address]-7) [place] [address] ph: [phone] [facility] ([facility])2020-08-14 18:18:00 Test Item Value Reference Range Interpretation Comments SARS-COV2/RT-PCR Negative Not Detected, Performanc e of the Xpert (test code = Negative, See Xpress [id number]) external report SARS-CoV-2/F andrea/RSV test for linked [...] laboratories. T his test is only authori darshan for the duration of the declaration agatha [...] sooner.Fact She et for Healthcare Prov iders: [email or web address]://www.Owlient/ Documents/Xpert %20Xpress %36DUOP-XbW-8-F andrea-RSV30 2-4508%20Rev.%2 0B%20HCP% 20Fact%20Sheet. pdfFact Sheet for Healt hcare Patients: [email or web address]://www.Owlient/ Documents/Xpert %20Xpress %42EKPK-JeZ-7-F andrea-RSV30 2-4507%20Rev.%2 0B%20Pati ent%20Fact%20Sh eet.pdf SARS-COV-2 SLSL Performed at:[facility] PERFORMING LAB [facility]1317 (test code = [facility] 0920905) [place], [place] [address]r h: [phone] POCT-GLUCOSE [id number] 16:54:00 Test Item Value Reference Range Interpretation Comments POC-GLUCOSE METER 261 mg/dL 70-110 H : Notified RN/MD: TESTED ([facility]) (test code AT [facility] [address] [place] [address] = 1538) [place] [id number]: Bladder Cleaner/Techni adrian ID = [id number] for Dilma garg Ravinniharika POCT-GLUCOSE [id number] 11:22:00 Test Item Value Reference Range Interpretation Comments POC-GLUCOSE METER 337 mg/dL 70-110 H : Notified RN/MD: TESTED ([facility]) (test code AT [facility] [address] [place] [address] = 1538) [place] [id number]: Bladder Cleaner/Techni adrian ID = [id number] for Evan Husain U/S, TESTICULAR (SCROTUM)2020-08-14 09:17:00Reason for exam:->Swelling, pain, erythema of the right scrotum [facility] : 1970 Sex: [...] [place] Verified Date/Time: 08/14/2020 09:17:05 Reading Location: [facility] Radiology Reading Room POCT-GLUCOSE [id number] 07:33:00 Test Item Value Reference Range Interpretation Comments POC-GLUCOSE METER 404 mg/dL 70-110 HH : Notified RN/MD: TESTED (BEAKER) (test code AT [facility] [address] = 1538) [facility] [address]: Bladder Cleaner/Techni adrian ID = [id number] for Evan Husain Urinalysis w/Microscopic + Reflex to [id number] 07:32:00 Test Item Value Reference Range Interpretation Comments Color, UA (test code Yellow = 5778-6) Clarity, UA (test Slightly Cloudy code = 5767-9) Specific [place], UA 1.020 1.001-1.035 (test code = 5811-5) pH, UA (test code = 6.0 5.0-8.0 5803-2) Protein, UA (test Negative Negative code = 85878-2) Glucose, UA (test >=1000 mg/dL Negative A code = 365) Ketones, UA (test 15 mg/dL Negative A code = 2514-8) Bilirubin, UA (test Negative Negative code = 37567-0) Blood, UA (test code Trace Negative A = 73408-5) Nitrite, UA (test Negative Negative code = 5802-4) Leukocytes, UA (test Negative Negative code = 5799-2) Urobilinogen, UA 0.2 mg/dL 0.2-1.0 (test code = 56331-6) Bacteria, UA (test Rare code = 73465-3) RBC, UA (test code = 5-10 See_Comment [Autom ated 799-7) message] The system which generated this result transmit odalys reference range : /HPF. The reference range was not used to interpret this result as normal/abnormal . WBC, UA (test code = 20-50 See_Comment [Autom ated 35769-1) message] The system which generated this result transmit odalys reference range : /HPF. The reference range was not used to interpret this result as normal/abnormal . SQUAMOUS EPITHELIAL <5 See_Comment [Automa odalys (test code = 09863-5) messag e] The system which generated this result transmit odalys reference range : /HPF. The reference range was not used to interpret this result as normal/abnormal . Specimen Source (test code = 2795) Lab Interpretation Abnormal (test code = 09726-9) [facility] Reflex to Culture 2020-08-14 07:32:00 Test Item Value Reference Range Interpretation Comments Color, UA (test code Yellow = 5778-6) Clarity, UA (test Slightly Cloudy code = 5767-9) Specific [place], UA 1.020 1.001-1.035 (test code = 5811-5) pH, UA (test code = 6.0 5.0-8.0 5803-2) Protein, UA (test Negative Negative code = 12470-0) Glucose, UA (test >=1000 mg/dL Negative A code = 365) Ketones, UA (test 15 mg/dL Negative A code = 2514-8) Bilirubin, UA (test Negative Negative code = 32575-1) Blood, UA (test code Trace Negative A = 68457-9) Nitrite, UA (test Negative Negative code = 5802-4) Leukocytes, UA (test Negative Negative code = 5799-2) Urobilinogen, UA 0.2 mg/dL 0.2-1.0 (test code = 70589-0) Bacteria, UA (test Rare code = 44711-8) RBC, UA (test code = 5-10 See_Comment [Autom ated 799-7) message] The system which generated this result transmit odalys reference range : /HPF. The reference range was not used to interpret this result as normal/abnormal . WBC, UA (test code = 20-50 See_Comment [Autom ated 27438-1) message] The system which generated this result transmit odalys reference range : /HPF. The reference range was not used to interpret this result as normal/abnormal . SQUAMOUS EPITHELIAL <5 See_Comment [Automa odalys (test code = 65505-2) messag e] The system which generated this result transmit odalys reference range : /HPF. The reference range was not used to interpret this result as normal/abnormal . Specimen Source (test code = 2795) Lab Interpretation Abnormal (test code = 49410-0) [facility]/ REFLEX URINE [id number] 07:32:00 Test Item Value Reference Range Interpretation [...] 1663) SOURCE(BEAKER) (test code = 2795) Hemoglobin [id number] 06:51:00 Test Item Value Reference Range Interpretation Comments Hemoglobin A1C (test code 14.0 % 4.3-6.1 H = 4548-4) ЕЛЕНА (test code = ЕЛЕНА) Bladder Cleaner ID - [id number] Lab Interpretation (test Abnormal code = 23035-7) [facility] Hospital[facility] [id number] 06:51:00 Test Item Value Reference Range Interpretation Comments Hemoglobin A1C (test code 14.0 % 4.3-6.1 H = 4548-4) ЕЛЕНА (test code = ЕЛЕНА) Bladder Cleaner ID - [id number] Lab Interpretation (test Abnormal code = 54449-4) [facility] HospitalHEMOGLOBIN [id number] 06:51:00 Test Item Value Reference Range Interpretation Comments HEMOGLOBIN A1C (BEAKER) (test code = 14.0 % 4.3-6.1 H 368) Bladder Cleaner ID - [id number] METABOLIC [id number] 06:31:00 Test Item Value Reference Range Interpretation [...] S NOT APPLICABLE FOR DIALYSIS PATIEN TS. Bladder Cleaner ID - [id number] ID - [id number] ID - [id number] ID - [id number] ID - [id number] ID - [id number] ID - [id number] ID - [id number] ID - [id number] ID - [id number] 06:29:00 Test Item Value Reference Range Interpretation Comments MAGNESIUM (BEAKER) (test code = 1.7 mg/dL 1.5-3.0 627) Bladder Cleaner ID - [id number] ID - [id number] ID - [id number] ID - [id number] Lrcygpreny4849-05-92 06:26:00 Test Item Value Reference Range Interpretation Comments Phosphorus (test code = 3.3 mg/dL 2.5-4.5 2777-1) ЕЛЕНА (test code = ЕЛЕНА) Bladder Cleaner ID - [id number] Lab Interpretation (test Normal code = 92094-3) [facility]2021-[facility]-28 06:26:00 Test Item Value Reference Range Interpretation Comments Phosphorus (test code = 3.3 mg/dL 2.5-4.5 2777-1) ЕЛЕНА (test code = ЕЛЕНА) Bladder Cleaner ID - [id number] Lab Interpretation (test Normal code = 57203-2) [facility]OSPHORUS2021-06-28 06:26:00 Test Item Value Reference Range Interpretation Comments PHOSPHORUS (BEAKER) (test code = 3.3 mg/dL 2.5-4.5 604) Bladder Cleaner ID - [id number] time/GAF7773-35-01 06:24:00 Test Item Value Reference Interpretation Comments [...] valves. Lab Interpretation Normal (test code = 67615-6) [facility] HospitalProthrombin time/[id number] 06:24:00 Test Item Value Reference Interpretation Comments [...] valves. Lab Interpretation Normal (test code = 27144-3) [facility] HospitalPROTHROMBIN TIME/[id number] 06:24:00 Test Item Value Reference Range Interpretation Comments PROTIME (BEAKER) 10.8 seconds 9.3-12.0 Final Infor mation (test code = 759) (Auto Outp ut) INR (BEAKER) (test 0.97 See_Comment Final Inf ormation code = 370) (Auto Output) [Automated mess age] The system [employer] generated this result transmitted ref erence range: <=5.90. The reference range was not used to int erpret this result as normal/abnormal . RECOMMENDED COUMADIN/WARFARIN INR THERAPY RANGESSTANDARD DOSE: 2.0 - 3.0 Includes: PROPHYLAXIS for venous thrombosis, systemic embolization; TREATMENT for venous thrombosis and/or pulmonary embolus.HIGH RISK: Target INR is 2.5-3.5 for patients with mechanical heart valves.CBC W/PLT COUNT & AUTO [id number] 06:16:00 Test Item Value Reference Range Interpretation [...] PERCENT (BEAKER) (test code = 2801) POCT-GLUCOSE [id number] 04:21:00 Test Item Value Reference Range Interpretation Comments POC-GLUCOSE METER 332 mg/dL 70-110 H : TESTED A T [facility] 1317 (BEAKER) (test code [facility] [facility] [address], = 1538) [facility] [address]: Bladder Cleaner/Techni adrian ID = [id number] for Francesca Lassiter Lipid Panel w/ Chol/HDL [id number] 00:00:00 Test Item Value Reference Range Interpretation Comments Cholesterol, Total (test code = 2093-3) 135 100-199 Triglycerides (test code = 2571-8) 488 0-149 HDL Cholesterol (test code = 2085-9) 33 >39 T. Chol/HDL Ratio (test code = 9830-1) 4.1 0.0-5.0 Urinalysis, [id number] 00:00:00 Test Item Value Reference Range Interpretation Comments Specific [place] (test code = >=1.030 1.005-1.030 2965-2) pH (test code = 5803-2) 6.0 5.0-7.5 Urine-Color (test code = 5778-6) Yellow Yellow Appearance (test code = 5767-9) Clear Clear WBC Esterase (test code = 5799-2) Negative Negative Protein (test code = 32477-2) 2+ Negative/Trace Glucose (test code = 2349-9) 3+ Negative Ketones (test code = 2514-8) Trace Negative Occult Blood (test code = 5794-3) Negative Negative Bilirubin (test code = 5770-3) Negative Negative Urobilinogen,Semi-Qn (test code = 0.2 0.2-1.0 ) Nitrite, Urine (test code = Negative Negative 5802-4) Microscopic Examination (test code See below: = 70957-8) Microalbumin/Creat Ratio, Random [id number] 00:00:00 Test Item Value Reference Range Interpretation Comments Creatinine, Urine (test code = 2161-8) 88.2 Not Estab. Albumin, Urine (test code = 54859-2) 264.6 Not Estab. Alb/Creat Ratio (test code = 44693-3) 300 0-29 Hemoglobin [id number] 00:00:00 Test Item Value Reference Range Interpretation Comments Hemoglobin A1c (test code = 4548-4) 12.9 4.8-5.6 Comp. Metabolic Panel (14) ([facility])2020-08-04 00:00:00 Test Item Value Reference Range Interpretation Comments Glucose (test code = 2345-7) 388 65-99 BUN (test code = 3094-0) 13 6-24 Creatinine (test code = 2160-0) 0.92 0.76-1.27 eGFR If NonAfricn Am (test code = 98 >59 88080-2) eGFR If Africn Am (test code = 71273-9) 113 >59 BUN/Creatinine Ratio (test code = 14 9-20 3097-3) Sodium (test code = 2951-2) 136 134-144 Potassium (test code = 2823-3) 5.3 3.5-5.2 Chloride (test code = 2075-0) 93 96-106 Carbon Dioxide, Total (test code = 24 20-29 2027-10) Calcium (test code = 39937-2) 11.0 8.7-10.2 Protein, Total (test code = 2885-2) 8.3 6.0-8.5 Albumin (test code = 1751-7) 4.8 4.0-5.0 Globulin, Total (test code = 16792-4) 3.5 1.5-4.5 A/G Ratio (test code = 1759-0) 1.4 1.2-2.2 Bilirubin, Total (test code = 1974-2) 0.3 0.0-1.2 Alkaline Phosphatase (test code = 85 48-121 6768-6) AST (SGOT) (test code = 1920-8) 49 0-40 ALT (SGPT) (test code = 1742-6) 63 0-44 CBC With Differential/Sdvhiqnc1700-78-90 00:00:00 Test Item Value Reference Range Interpretation [...] Granulocytes (test code = 3 Not Estab. 03796-9) Immature Grans (Abs) (test code = 0.3 0.0-0.1 46468-8) [facility] (test code = 43637-2) Hematology Comments: (test code = 36032-2) BASIC METABOLIC PANEL (NA, K, CL, CO2, GLUCOSE, BUN, CREATININE, CA)2020-03-19 05:46:00 Test Item Value Reference Range Interpretation Comments NA (test code = 140 mmol/L 135-145 1436162329) K (test code = 4.0 mmol/L 3.5-5 1846082472) CL (test code = 104 mmol/L 98-108 0079170088) CO2 TOTAL (test code = 24 mmol/L 23-31 6768027501) AGAP (test code = 2-16 9645577107) BUN (test code = 23 mg/dL 7-23 9878044057) GLUCOSE (test code = 114 mg/dL 70-110 H 3290278330) CREATININE (test code = 1.09 mg/dL 0.6-1.25 0838321958) CALCIUM (test code = 9.4 mg/dL 8.6-10.6 8493089998) eGFR Calculation mL/min/1.73m2 (Non-) (test code = 2204273482) eGFR Calculation mL/min/1.73m2 () (test code = 4684714210) ЕЛЕНА (test code = ЕЛЕНА) Association of [...] tests). Lab Interpretation Abnormal (test code = 97262-2) [facility] Test Item Value Reference Range Interpretation Comments APPEARANCE (test code = Cloudy Clear A 3587532361) COLOR (test code = Gricelda Yellow A 4885976235) PH (test code = 4.8-8.0 6382082457) SP GRAVITY (test code = 1.003-1.030 6070437432) GLU U QUAL (test code = Normal Normal 6128126844) BLOOD (test code = 1+ Negative A 9665343532) KETONES (test code = 20 mg/dL Negative A 1858931801) PROTEIN (test code = 500 mg/dL Negative A 2887-8) UROBILIN (test code = 4.0 mg/dL Normal A 1367100742) BILIRUBIN (test code = 2 mg/dL Negative A 2552361883) NITRITE (test code = Negative Negative 3789307253) LEUK BRIDGET (test code = Negative Negative 0648259585) RBC/HPF (test code = See_Comment [Autom ated message] 7638504387) The system [employer] generated this result transmit odalys reference range : 0 - 3 HPF. The refe rence range was not u sed to interpret th is result as normal/abnormal . WBC/HPF (test code = See_Comment H [Autom ated message] 5882372870) The system [employer] generated this result transmit odalys reference range : 0 - 5 HPF. The refe rence range was not u sed to interpret th is result as normal/abnormal . BACTERIA (test code = Few Negative A 6685235418) MUCOUS (test code = Marked Negative LPF A 9023477151) SQ EPITH (test code = HPF 2487057514) HYAL CAST (test code = See_Comment H [Aut omated message] 8288667889) The system whic h generated this result transmit odalys reference range : <=2 LPF. The refere nce range was not u sed to interpret th is result as normal/abnormal . Lab Interpretation (test Abnormal code = 76865-6) [facility] + LACTIC [id number] 03:32:00 Test Item Value Reference Range Interpretation Comments PH (test code = 7.32-7.42 2997113537) PCO2 LOUIS (test code = See_Comment L [Auto mated 6384824594) message] The sy stem which generated this result transmitted reference range : 41 - 51 mmHg. The reference range was not used to interpret this result as normal/abnormal . PO2 LOUIS (test code = See_Comment [Autom ated 5242157480) message] The sy stem which generated this result transmitted reference range : 25 - 40 mmHg. The reference range was not used to interpret this result as normal/abnormal . HCO3 LOUIS (test code = See_Comment L [Auto mated 1491032155) message] The sy stem which generated this result transmitted reference range : 24 - 28 mEq/L. The reference range was not used to interpret this result as normal/abnormal . AC VBE(BEAKER) (test mEq/L code = 6758230560) LACTIC ACID (test code 1.72 mmol/L 0.5-2.2 = 6940822812) Lab Interpretation Abnormal (test code = 72779-2) [facility]. METABOLIC PANEL (59487)2020-03-19 01:51:00 Test Item Value Reference Range Interpretation Comments NA (test code = 141 mmol/L 135-145 4414261528) K (test code = 4.1 mmol/L 3.5-5 4094994026) CL (test code = 102 mmol/L 98-108 7470375202) CO2 TOTAL (test code = 21 mmol/L 23-31 L 2864109878) AGAP (test code = 2-16 H 1341229620) BUN (test code = 25 mg/dL 7-23 H 1747316099) GLUCOSE (test code = 160 mg/dL 70-110 H 9857190754) CREATININE (test code = 1.12 mg/dL 0.6-1.25 2220640185) TOTAL BILI (test code = 1.1 mg/dL 0.1-1.4 9906870304) CALCIUM (test code = 10.6 mg/dL 8.6-10.6 5905197946) T PROTEIN (test code = 9.4 g/dL 6.3-8.2 H 0296245161) ALBUMIN (test code = 5.1 g/dL 3.5-5 H 7615251352) ALK PHOS (test code = 108 U/L 34-122 6321796025) ALTv (test code = 121 U/L 5-50 H 1742-6) AST(SGOT) (test code = 99 U/L 13-40 H 4240063385) eGFR Calculation mL/min/1.73m2 (Non-) (test code = 4023250595) eGFR Calculation mL/min/1.73m2 () (test code = 9522122480) ЕЛЕНА (test code = ЕЛЕНА) Association of [...] tests). Lab Interpretation Abnormal (test code = 78245-6) [facility] 01:51:00 Test Item Value Reference Range Interpretation Comments LIPASE (test code = 0220561369) 66 U/L 0-220 Lab Interpretation (test code = Normal 33916-6) [facility]UM2021-[facility] 01:51:00 Test Item Value Reference Range Interpretation Comments MAGNESIUM (test code = 9191628031) 1.8 mg/dL 1.7-2.4 Lab Interpretation (test code = Normal 92233-3) [facility]CB WITH [id number] 01:38:00 Test Item Value Reference Range Interpretation Comments WBC (test code = See_Comment [Automated 2927-2) message] The sy stem which generated this result transmitted reference range : 4.20 - 10.70 10*3/?L. The reference range was not used to interpret this result as normal/abnormal . RBC (test code = See_Comment [Automated 620-8) message] The sy stem which generated this [...] RDW-SD (test code = 41.2 fL 38.5-51.6 56518-9) RDW-CV (test code = 13.2 % 12.1-15.4 788-0) PLT (test code = See_Comment H [Automated 667-3) message] The sy stem which generated this result transmitted reference range : 150 - 328 10*3/ ?L. The reference r cj was not used to interpret this result as normal/abnormal . MPV (test code = 9.5 fL 9.8-13 L 18618-3) NRBC/100 WBC (test See_Comment [Automat ed code = 1265083079) message] The system which generated this result transmitted reference range : 0.0 - 10.0 /100 WBCs. The refer ence range was not u sed to interpret th is result as normal/abnormal . NRBC x10^3 (test code <0.01 See_Comment [Auto mated = 0686165060) message] The s ystem which generated this result transmitted reference range : 10*3/?L. The reference range was not used to interpret this result as normal/abnormal . GRAN MAT (NEUT) % 46.0 % (test code = 770-8) IMM GRAN % (test code 3.50 % = 6726406786) LYMPH % (test code = 37.9 % 736-9) MONO % (test code = 9.5 % 5905-5) EOS % (test code = 2.3 % 713-8) BASO % (test code = 0.8 % 706-2) GRAN MAT x10^3(ANC) 3.38 10*3/uL 1.99-6.95 (test code = 4575233011) IMM GRAN x10^3 (test 0.26 10*3/uL 0-0.06 H code = 9218466651) LYMPH x10^3 (test code 2.79 10*3/uL 1.09-3.23 = 731-0) MONO x10^3 (test code 0.70 10*3/uL 0.36-1.02 = 742-7) EOS x10^3 (test code = 0.17 10*3/uL 0.06-0.53 711-2) BASO x10^3 (test code 0.06 10*3/uL 0.01-0.09 = 704-7) Lab Interpretation Abnormal (test code = 65462-7) [facility] 1 Hbno5056-52-72 01:31:03No acute cardiopulmonary disease RL: 6200 AFC: 35785 End of report ORDERING CLINICIAN: STEFANY GUERRERO [...] contour is normal.IMPRESSIONNo acute cardiopulmonary diseaseRL: 6200AF: 15854Dvr of report UnJoint [facility] and [facility] ResourcesADC,CLC OR LCC ONLY - INFLUENZA A & B DIRECT [id number] 01:15:00 Test Item Value Reference Range Interpretation Comments Influenza A (test code = 74832-0) Negative Negative Influenza B (test code = 36533-7) Negative Negative Lab Interpretation (test code = Normal 97769-3) [facility] Hospital[facility]inalysis2021-[facility] 01:03:00 Test Item Value Reference Range Interpretation Comments APPEARANCE (test code = Hazy Clear A 4324563456) COLOR (test code = Gricelda Yellow A 0992103671) PH (test code = 4.8-8.0 1510563610) SP GRAVITY (test code = 1.003-1.030 6779454831) GLU U QUAL (test code = Normal Normal 3644546352) BLOOD (test code = 2+ Negative A 1394267206) KETONES (test code = Negative Negative 5536647819) PROTEIN (test code = 500 mg/dL Negative A 2887-8) UROBILIN (test code = Normal Normal 9835594640) BILIRUBIN (test code = Negative Negative 6898553517) NITRITE (test code = Negative Negative 9169346087) LEUK BRIDGET (test code = Negative Negative 7729248674) RBC/HPF (test code = See_Comment H [Autom ated message] 1049059979) The system [employer] generated this result transmit odalys reference range : 0 - 3 HPF. The refe rence range was not u sed to interpret th is result as normal/abnormal . WBC/HPF (test code = See_Comment [Autom ated message] 8107959713) The system [employer] generated this result transmit odalys reference range : 0 - 5 HPF. The refe rence range was not u sed to interpret th is result as normal/abnormal . BACTERIA (test code = Few Negative A 1015924065) MUCOUS (test code = Slight Negative LPF A 1911986451) Lab Interpretation (test Abnormal code = 89322-0) [facility] Metabolic Panel (NA, K, CL, CO2, GLUCOSE, BUN, CREATININE, CA)2020-03-13 00:49:00 Test Item Value Reference Range Interpretation Comments NA (test code = 135 mmol/L 135-145 1302009442) K (test code = 4.0 mmol/L 3.5-5 9481622187) CL (test code = 97 mmol/L 98-108 L 9094186784) CO2 TOTAL (test code = 24 mmol/L 23-31 2086839494) AGAP (test code = 2-16 8280974080) BUN (test code = 21 mg/dL 7-23 3537918145) GLUCOSE (test code = 206 mg/dL 70-110 H 8533836624) CREATININE (test code = 1.12 mg/dL 0.6-1.25 6264013737) CALCIUM (test code = 9.8 mg/dL 8.6-10.6 2682312949) eGFR Calculation mL/min/1.73m2 (Non-) (test code = 6074606291) eGFR Calculation mL/min/1.73m2 () (test code = 8731014630) ЕЛЕНА (test code = ЕЛЕНА) Association of [...] tests). Lab Interpretation Abnormal (test code = 24249-6) [facility] (ID NOW RAPID TESTING)2020-03-13 00:49:00 Test Item Value Reference Range Interpretation Comments SARS-CoV-2 Rapid ID NOW Positive Not Detected A (test code = 81257-4) ЕЛЕНА (test code = ЕЛЕНА) ID NOW COVID-19 Assay is an isothermal nucleic acid amplification test intended for the qualitative detection of nucleic acid from SARS-CoV-2 viral RNA in nasopharyngeal (FELLER BUNCHER OPERATOR) specimens. It is used under Emergency [...] indicated. Lab Interpretation Abnormal (test code = 61394-8) [facility] Function Panel (ALB, T.PRO, BILI T, BU/BC, ALT, AST, ALK PHOS)2020-03-13 00:43:00 Test Item Value Reference Range Interpretation Comments TOTAL BILI (test code = 6714398168) 0.8 mg/dL 0.1-1.1 BILI UNCON (test code = 1627715765) 0.6 mg/dL 0.1-1.1 BILI CONJ (test code = 8146373695) 0.0 mg/dL 0-0.3 T PROTEIN (test code = 8514456424) 8.9 g/dL 6.3-8.2 H ALBUMIN (test code = 1391836349) 4.8 g/dL 3.5-5 ALK PHOS (test code = 6919391874) 82 U/L 34-122 ALTv (test code = 1742-6) 138 U/L 5-50 H AST(SGOT) (test code = 9719455621) 139 U/L 13-40 H Lab Interpretation (test code = Abnormal 71872-6) [facility] HospitalLipase Dpjym7366-72-10 00:42:00 Test Item Value Reference Range Interpretation Comments LIPASE (test code = 4918516950) 46 U/L 0-220 Lab Interpretation (test code = Normal 45414-3) [facility] with Yczxzxqavffl4254-29-61 00:26:00 Test Item Value Reference Range Interpretation Comments WBC (test code = See_Comment [Automated 5990-2) message] The sy stem which generated this result transmitted reference range : 4.20 - 10.70 10*3/?L. The reference range was not used to interpret this result as normal/abnormal . RBC (test code = See_Comment [Automated 910-8) message] The sy stem which generated this [...] RDW-SD (test code = 42.4 fL 38.5-51.6 46011-7) RDW-CV (test code = 13.3 % 12.1-15.4 788-0) PLT (test code = See_Comment H [Automated 777-3) message] The sy stem which generated this result transmitted reference range : 150 - 328 10*3/ ?L. The reference r cj was not used to interpret this result as normal/abnormal . MPV (test code = 10.0 fL 9.8-13 06088-1) NRBC/100 WBC (test See_Comment [Automat ed code = 2781104274) message] The system which generated this result transmitted reference range : 0.0 - 10.0 /100 WBCs. The refer ence range was not u sed to interpret th is result as normal/abnormal . NRBC x10^3 (test code <0.01 See_Comment [Auto mated = 2987082938) message] The s ystem which generated this result transmitted reference range : 10*3/?L. The reference range was not used to interpret this result as normal/abnormal . GRAN MAT (NEUT) % 55.8 % (test code = 770-8) IMM GRAN % (test code 1.80 % = [id number]) LYMPH % (test code = 33.1 % 736-9) MONO % (test code = 8.5 % 5905-5) EOS % (test code = 0.3 % 713-8) BASO % (test code = 0.5 % 706-2) GRAN MAT x10^3(ANC) 4.12 10*3/uL 1.99-6.95 (test code = [id number]) IMM GRAN x10^3 (test 0.13 10*3/uL 0-0.06 H code = 1271292613) LYMPH x10^3 (test code 2.44 10*3/uL 1.09-3.23 = 731-0) MONO x10^3 (test code 0.63 10*3/uL 0.36-1.02 = 742-7) EOS x10^3 (test code = <0.03 0.06-0.53 L 711-2) BASO x10^3 (test code 0.04 10*3/uL 0.01-0.09 = 704-7) Lab Interpretation Abnormal (test code = 42081-1) [facility]
[2022-12-03] MEDS ORDERED: FAMOTIDINE 20 MG/2 ML VIAL IV ONE (00:12)
[2022-12-03] MEDS ORDERED: METHYLPREDNISOLONE 125 MG INJ ONE (00:12)
[2022-12-03] MEDS ORDERED: DIPHENHYDRAMINE 50 MG/ML VIAL ONE (00:12)
[2022-12-03] MEDS ORDERED: NA CHLORIDE 0.9% 1,000 ML ONE (00:12)
[2022-12-03] MEDS ORDERED: NA CHLORIDE 0.9% 500 ML ONE (00:12)
[2022-12-03 00:59] LABS: Protime INR 1.18
[2022-12-03 01:00] LABS: Absolute Lymphocytes (CBC) 3.3 K/uL (0.7-4.9); Hematocrit 35.3 % (39.6-49.0); Lymphocytes % 52.3 % (15.3-44.8); MCV 83.6 fL (80-100); MPV 8.3 fL (7.6-11.3); Platelets 389 thou/uL (152-406); RBC Red Blood Cell Count 4.22 M/uL (4.33-5.43)
[2022-12-03 01:10] LABS: Specific Gravity 1.019 (1.005-1.030); Urine Bacteria None Seen /HPF (<20); Urine Bilirubin NEGATIVE (Negative); Urine Blood Trace (Negative); Urine Clarity Clear (Clear); Urine Color Yellow (Yellow); Urine Glucose 4+ (Negative); Urine Mucus Slight /HPF (None Seen); Urine Protein TRACE (Negative); Urine RBC None Seen /HPF (None Seen); Urine Urobilinogen 1+ (Normal)
[2022-12-03 01:17] LABS: Albumin 3.5 g/dL (3.4-5.0); Bilirubin Direct 0.2 mg/dL (0-0.2); Bilirubin Indirect, Calculated 0.2 mg/dL (0.2-0.8); Bilirubin Total 0.4 mg/dL (0.2-1.0); Magnesium 1.5 mg/dL (1.6-2.4); Potassium 2.9 mEq/L (3.5-5.1); Protein, Total 7.5 g/dL (6.4-8.2); Troponin High Sensitivity 14.1 pg/mL (<58.9)
[2022-12-03] MEDS ORDERED: ONDANSETRON 4 MG/2 ML VIAL ONE (01:34)
[2022-12-03] MEDS ORDERED: MORPHINE 4 MG/ML SYR ONE (01:34)
[2022-12-03] MEDS ORDERED: POTASSIUM 25 MEQ EFFERV TAB ONE ×2 (02:49→04:16)
[2022-12-03] MEDS ORDERED: Magnesium Sulfate 2gm IVPB 2 G/50 ML BAG IV ONE (02:49)
[2022-12-03] MEDS ORDERED: KCL 20 MEQ/100 mL IVPB 100 ML IV ONE (02:49)
[2022-12-03 03:10] LABS: Blood Morphology Comment NOT SEEN (NOT SEEN); Platelet Estimate ADEQ
--- NOTE | 2022-12-03 04:11 | EDPHYS ---
Physician Documentation [facility] Name: Dean Rosenthal Age: 52 yrs Sex: Male : 1970 Arrival Date: 12/02/2022 Time: 22:50 Bed 5 Private MD: ED Physician Ruben Duarte HPI: 12/02 23:49 This 52 yrs old Black Male presents to ER via Ambulatory with complaints of Rash, og Itching. 23:49 The patient's rash thought to be caused by Dermatitis Contact allergy. og Historical: - Allergies: 23:27 No Known Allergies; jj7 - PMHx: 23:27 Arthritis; Diabetes - NIDDM; GERD; High Cholesterol; Hypertension; osteoarthritis; jj7 - PSHx: 23:27 LEFT HIP REPLACEMENT (osteoarthritis); RECTAL ABSCESS (osteoarthritis); jj7 - Immunization history:: Adult Immunizations up to date, Client reports receiving the 2nd dose of the Covid vaccine. - Social history:: Smoking status: Reported history of juuling and/or vaping. Patient uses alcohol, occasionally. Patient/guardian denies using street drugs. ROS: 23:49 Constitutional: Negative for fever, chills, and weight loss, Eyes: Negative for injury, og pain, redness, and discharge, ENT: Negative for injury, pain, and discharge, Neck: Negative for injury, pain, and swelling, Cardiovascular: Negative for chest pain, palpitations, and edema, Abdomen/GI: Negative for abdominal pain, nausea, vomiting, diarrhea, and constipation, Back: Negative for injury and pain, : Negative for injury, bleeding, discharge, and swelling, Skin: Negative for injury, rash, and discoloration, Neuro: Negative for headache, weakness, numbness, tingling, and seizure, Psych: Negative for depression, anxiety, suicide ideation, homicidal ideation, and hallucinations, Allergy/Immunology: Negative for hives, rash, and allergies, Endocrine: Negative for neck swelling, polydipsia, polyuria, polyphagia, and marked weight changes, Hematologic/Lymphatic: Negative for swollen nodes, abnormal bleeding, and unusual bruising, 23:49 Respiratory: Positive for shortness of breath, 23:49 Skin: Positive for rash, of the right leg and left leg, Exam: 23:49 Constitutional: This is a well developed, well nourished patient who is awake, alert, og and in no acute distress. Head/Face: Normocephalic, atraumatic. Eyes: Pupils equal round and reactive to light, extra-ocular motions intact. Lids and lashes normal. Conjunctiva and sclera are non-icteric and not injected. Cornea within normal limits. Periorbital areas with no swelling, redness, or edema. ENT: Nares patent. No nasal discharge, no septal abnormalities noted. Tympanic membranes are normal and external auditory canals are clear. Oropharynx with no redness, swelling, or masses, exudates, or evidence of obstruction, uvula midline. Mucous membranes moist. Neck: Trachea midline, no thyromegaly or masses palpated, and no cervical lymphadenopathy. Supple, full range of motion without nuchal rigidity, or vertebral point tenderness. No Meningismus. Chest/axilla: Normal chest wall appearance and motion. Nontender with no deformity. No lesions are appreciated. Cardiovascular: Regular rate and rhythm with a normal S1 and S2. No gallops, murmurs, or rubs. Normal PMI, no JVD. No pulse deficits. Abdomen/GI: Soft, non-tender, with normal bowel sounds. No distension or tympany. No guarding or rebound. No evidence of tenderness throughout. Back: No spinal tenderness. No costovertebral tenderness. Full range of motion. Male : Normal genitalia with no discharge or lesions. MS/ Extremity: Pulses equal, no cyanosis. Neurovascular intact. Full, normal range of motion. Neuro: Awake and alert, GCS 15, oriented to person, place, time, and situation. Cranial nerves II-XII grossly intact. Motor strength 5/5 in all extremities. Sensory grossly intact. Cerebellar exam normal. Normal gait. Psych: Awake, alert, with orientation to person, place and time. Behavior, mood, and affect are within normal limits. 23:49 Respiratory: mild respiratory distress is noted, Respirations: labored breathing, that is moderate, Breath sounds: are clear throughout, Respiratory rate: 22 10 01:41 ECG was reviewed by the Attending Physician. og 04:12 Musculoskeletal/extremity: ROM: intact in all extremities, full active range of motion, og full passive range of motion, Circulation is intact in all extremities. Sensation intact. Compartment Syndrome exam of affected extremity: is normal. Joints: All joints are normal except the left hip displays pain at rest, tenderness, Weight bearing: able to fully bear weight, DVT Exam: No signs of deep vein thrombosis. no pain, no swelling, no tenderness, negative Homans' sign noted on exam, no appreciated bluish discoloration, no erythema, no increased warmth, 04:12 Neuro: Exam negative for acute changes, focal neuro deficits, motor deficits, sensory deficits, cerebellar deficits, Orientation: is normal, appropriate for stated age, no acute changes, to person, place, time \T\ situation. Mentation: is normal, appropriate for stated age, able to follow commands, Memory: is normal, appropriate for stated age, no acute changes, Cranial nerves: grossly normal, is grossly normal based on the patient's age, no acute changes, Cerebellar function: is grossly normal, is grossly normal based on the patient's age, no acute changes, Motor: is grossly normal based on the patient's age, no acute changes, moves all fours, Sensation: no obvious gross deficits, no acute changes, Gait: is steady, Deep tendon reflexes are 2+ (normal) in the bilateral brachioradialis, bicep, tricep and patellar and Achilles tendons, Babinski testing is normal, seizure activity, is not displayed by the patient, Vital Signs: 12/02 23:23 BP 123 / 91; Pulse 102; Resp 21; Temp 97.7; Pulse Ox 99% ; Weight 113.4 kg; Height 5 jj7 ft. 11 in. ; Pain 11/26; 12/03 02:45 BP 131 / 81; Pulse 84; Resp 16; Pulse Ox 100% on R/A; jb4 03:30 BP 123 / 79; Pulse 91; Resp 16; Pulse Ox 97% on R/A; jb4 05:00 BP 117 / 85; Pulse 95; Resp 16; Pulse Ox 98% on R/A; jb4 12/02 23:23 Body Mass Index 34.87 (113.40 kg, 180.34 cm) [facility] 12/02 23:23 Pain Scale: Adult [facility] MDM: 12/02 23:37 Patient medically screened. og 23:57 Differential diagnosis: allergic reaction, Anemia Bronchitis CHF exacerbation, Chronic og Obstructive Pulmonary Disease Myocardial Infarction pulmonary edema, Pulmonary Embolism reactive airway disease. Antibiotic administration: Not indicated. Differential Diagnosis altered mental status, sepsis, flu. Immunization status: Influenza vaccine: within last 5 years. Data reviewed: vital signs, nurses notes, lab test result(s), EKG, radiologic studies. Consideration of Admission/Observation Escalation of care including admission/observation considered. I considered the following discharge prescriptions or medication management in the emergency department Medications were administered in the Emergency Department. See MAR. Test considered but Not performed: Ultrasound no gb usg. 12/02 23:44 Order name: Basic Metabolic Panel; Complete Time: 02:02 [facility] 12/02 23:44 Order name: CBC with Diff; Complete Time: 04:08 [facility] 12/02 23:44 Order name: LFT's; Complete Time: 02:02 [facility] 12/02 23:44 Order name: Magnesium; Complete Time: 02:02 [facility] 12/02 23:44 Order name: NT PRO-BNP; Complete Time: 02:02 [facility] 12/02 23:44 Order name: PT-INR; Complete Time: 02:02 [facility] 12/02 23:44 Order name: Troponin HS; Complete Time: 02:02 [facility] 12/02 23:44 Order name: Lipase; Complete Time: 02:02 [facility] 12/02 23:44 Order name: Urinalysis w/ reflexes; Complete Time: 02:02 [facility] 12/03 01:07 Order name: Manual Differential; Complete Time: 04:08 EDMS 12/02 23:44 Order name: XRAY Chest (1 view) [facility] 12/02 23:44 Order name: US Extremity Venous W Compression Zach [facility] 12/02 23:44 Order name: CT Chest For PE Angio [facility] 12/03 00:22 Order name: CT Abd/Pelvis - IV Contrast Only [facility] 12/02 23:44 Order name: EKG; Complete Time: 23:44 [facility] 12/02 23:44 Order name: Cardiac monitoring; Complete Time: 00:24 [facility] 12/02 23:44 Order name: EKG - Nurse/Tech; Complete Time: 01:29 [facility] 12/02 23:44 Order name: IV Saline Lock; Complete Time: 00:24 [facility] 12/02 23:44 Order name: Labs collected and sent; Complete Time: 00:24 [facility] 12/02 23:44 Order name: O2 Per Protocol; Complete Time: 00:23 [facility] 12/02 23:44 Order name: O2 Sat Monitoring; Complete Time: 00:24 [facility] EC/17 01:41 Rate is 89 beats/min. Rhythm is regular. QRS [place] is Normal. [place] interval is normal. QRS og interval is normal. QT interval is normal. No Q waves. T waves are Normal. No ST changes noted. Clinical impression: 1st degree heart block and No evidence of ischemia. Interpreted by me. Reviewed by me. Administered Medications: 00:23 Drug: NS 0.9% IV 500 ml IV at bolus once Route: IV; Rate: bolus; Site: right forearm; cm10 00:23 Drug: NS 0.9% IV 1000 ml IV at 125 ml/hr continuous Route: IV; Rate: 125 ml/hr; Site: cm10 right forearm; 00:23 Drug: diphenhydrAMINE IVP 50 mg IVP once Route: IVP; Site: right forearm; cm10 00:23 Drug: Famotidine IVP 40 mg IVP once; dilute with 10 mL 0.9% NaCl; give over 2 minutes cm10 Route: IVP; Site: right forearm; 00:23 Drug: MethylPrednisoLONE IVP 125 mg IVP once Route: IVP; Site: right forearm; cm10 01:29 Drug: morphine IVP or IV 4 mg IVP once over 4 mins Route: IVP; Infused Over: 4 mins; cm10 Site: right forearm; 01:29 Drug: Ondansetron IVP 4 mg IVP once; over 2 minutes Route: IVP; Site: right forearm; cm10 03:04 Drug: Magnesium Sulfate IVPB 2 grams IVPB once over 2 hrs Route: IVPB; Infused Over: 2 jb4 hrs; Site: right forearm; 03:04 Drug: Potassium PO Effervescent Tablet 50 mEq PO once; dissolve in 4 ounces of water or jb4 juice Route: PO; 03:04 Drug: Potassium Chloride IV 20 mEq IV at per protocol once; administer over 1-2 hours jb4 Route: IV; Rate: per protocol; Site: right forearm; 04:13 Not Given (Physician Discretion): ns 0.9% with kcl20 meq/l 1000 ml IV at 125 ml/hr jb4 continuous 04:13 Drug: Potassium PO Effervescent Tablet 50 mEq PO once; dissolve in 4 ounces of water or jb4 juice Route: PO; 05:06 Drug: predniSONE PO 60 mg PO once Route: PO; jb4 Disposition Summary: 12/03/22 04:10 Discharge Ordered Notes: Location: Home [facility] Problem: new og Symptoms: have improved og Condition: Stable og Diagnosis - Rash and other nonspecific skin eruption og - Urticaria, unspecified og - Hypokalemia og - Hypomagnesemia og Followup: og - With: Private Physician - When: 2 - 3 days - Reason: Recheck today's complaints, Continuance of care, Re-evaluation by your physician Discharge Instructions: - Discharge Summary Sheet og - Hives og - Hypomagnesemia og - Rash, Adult og - Rash, Adult, [id number] og - Hives, [id number] og - Hypokalemia [facility] Forms: - Medication Reconciliation Form [facility] - Thank You Letter og - Antibiotic Education og - Prescription Opioid Use og - Patient Portal Instructions [facility] - Leadership Thank You Letter og Prescriptions: - Benadryl 25 mg Oral capsule - take 2 capsule ORAL route every 6 hours As needed; 40 tablet; Refills: 0, [facility] Product Selection Permitted - Pepcid 20 mg Oral tablet - take 1 tablet ORAL route every 12 hours for 21 days; 42 tablet; Refills: 0, [facility] Product Selection Permitted - Prednisone 20 mg Oral Tablet - take 2 tablets ORAL route once daily for 5 days; 10 tablet; Refills: 0, Product [facility] Selection Permitted Signatures: Dispatcher [employer] Ruben Langley MD MD cha Bryson, James RN RN jb4 Glenny Cuevas RN RN jj7 Trinh Flores RN RN cm10
--- NOTE | 2022-12-03 04:11 | ER ---
Nurse's Notes [facility] Name: Dean Rosenthal Age: 52 yrs Sex: Male : 1970 Arrival Date: 12/02/2022 Time: 22:50 Bed 5 Private MD: Diagnosis: Rash and other nonspecific skin eruption;Urticaria, unspecified;Hypokalemia;Hypomagnesemia Presentation: 12/02 23:23 Chief complaint: Patient states: RASH AND ITCHING STARTED YESTERDAY. ALL OVER BODY. [facility] Coronavirus screen: At this time, the client does not indicate any symptoms associated with coronavirus-19. Ebola Screen: No symptoms or risks identified at this time. Onset: The symptoms/episode began/occurred 1 day(s) ago. Anaphylaxis evaluation, the patient reports or I have noted the following symptoms which indicate a significant risk of anaphylaxis: shortness of breath. Initial Sepsis Screen: Does the patient meet any 2 criteria? HR > 90 bpm. Yes Does the patient have a suspected source of infection? No. Patient's initial sepsis screen is negative. Risk Assessment: Do you want to hurt yourself or someone else? Patient reports no desire to harm self or others. Onset of symptoms was December 01, 2022. 23:23 Method Of Arrival: Ambulatory [facility] 23:23 Acuity: DIANNA 3 [facility] Triage Assessment: 23:27 General: Appears distressed, uncomfortable, Behavior is cooperative, appropriate for [facility] age, anxious. Pain: Complains of pain in left hip. Respiratory: Airway is patent Respiratory effort is unlabored. 23:39 Respiratory: Respiratory effort is labored. [facility] 12/03 00:15 General: Appears in no apparent distress. comfortable, Behavior is calm, cooperative. cm10 Pain: Complains of pain in left hip. EENT: No deficits noted. No signs and/or symptoms were reported regarding the EENT system. Neuro: No deficits noted. Level of Consciousness is awake, alert, obeys commands, Oriented to person, place, time, situation. Cardiovascular: No deficits noted. Patient's skin is warm and dry. Rhythm is sinus rhythm. Respiratory: No deficits noted. Airway is patent Respiratory effort is even, unlabored, Respiratory pattern is regular, symmetrical. GI: No deficits noted. No signs and/or symptoms were reported involving the gastrointestinal system. : No deficits noted. No signs and/or symptoms were reported regarding the genitourinary system. Derm: Reports itching. Musculoskeletal: No deficits noted. Range of motion: intact in all extremities. Historical: - Allergies: 12/02 23:27 No Known Allergies; jj7 - PMHx: 23:27 Arthritis; Diabetes - NIDDM; GERD; High Cholesterol; Hypertension; osteoarthritis; jj7 - PSHx: 23:27 LEFT HIP REPLACEMENT (osteoarthritis); RECTAL ABSCESS (osteoarthritis); jj7 - Immunization history:: Adult Immunizations up to date, Client reports receiving the 2nd dose of the Covid vaccine. - Social history:: Smoking status: Reported history of juuling and/or vaping. Patient uses alcohol, occasionally. Patient/guardian denies using street drugs. Screenin/17 00:15 [facility] ED Fall Risk Assessment (Adult) History of falling in the last 3 months, cm10 including since admission No falls in past 3 months (0 pts) Confusion or Disorientation No (0 pts) Intoxicated or Sedated No (0 pts) Impaired Gait Yes (1 pt) Mobility Assist Device Used Yes (1 pt) Altered Elimination No (0 pt) Score/Fall Risk Level 0 - 2 = Low Risk Oriented to surroundings, Maintained a safe environment, Educated pt \T\ family on fall prevention, incl call for assistance when getting out of bed, Hourly rounding (assess needs \T\ fall precautionary measures) done, Used ambulatory aids as needed (educated on \T\ assisted with). Abuse screen: Denies threats or abuse. Denies injuries from another. Nutritional screening: No deficits noted. Tuberculosis screening: No symptoms or risk factors identified. Assessment: 01:29 Reassessment: Pt reports that his itching has improved. Patient states feeling better. cm10 Patient states symptoms have improved. 02:30 Reassessment: Patient appears in no apparent distress at this time. Patient and/or jb4 family updated on plan of care and expected duration. Pain level reassessed. Patient is alert, oriented x 3, equal unlabored respirations, skin warm/dry/pink. 03:30 Reassessment: Patient appears in no apparent distress at this time. Patient and/or jb4 family updated on plan of care and expected duration. Pain level reassessed. Patient is alert, oriented x 3, equal unlabored respirations, skin warm/dry/pink. 05:06 Reassessment: Patient appears in no apparent distress at this time. Patient and/or jb4 family updated on plan of care and expected duration. Pain level reassessed. Patient is alert, oriented x 3, equal unlabored respirations, skin warm/dry/pink. Vital Signs: 12/02 23:23 BP 123 / 91; Pulse 102; Resp 21; Temp 97.7; Pulse Ox 99% ; Weight 113.4 kg; Height 5 jj7 ft. 11 in. ; Pain 11/26; 12/03 02:45 BP 131 / 81; Pulse 84; Resp 16; Pulse Ox 100% on R/A; jb4 03:30 BP 123 / 79; Pulse 91; Resp 16; Pulse Ox 97% on R/A; jb4 05:00 BP 117 / 85; Pulse 95; Resp 16; Pulse Ox 98% on R/A; jb4 12/02 23:23 Body Mass Index 34.87 (113.40 kg, 180.34 cm) j7 12/02 23:23 Pain Scale: Adult jj7 ED Course: 12/02 22:52 Patient arrived in ED. jj6 23:27 Triage completed. jj7 23:27 Arm band placed on right wrist. jj7 23:37 Ruben Duarte MD is Attending Physician. [facility] 12/03 00:02 XRAY Chest (1 view) In Process Unspecified. EDMS 00:15 Patient has correct armband on for positive identification. Bed in low position. Call cm10 light in reach. Side rails up X2. Provided Education on: ER process and procedures. . Client placed on continuous cardiac and pulse oximetry monitoring. NIBP monitoring applied. 00:24 Lipase Sent. cm10 00:24 Urinalysis w/ reflexes Sent. cm10 00:24 Basic Metabolic Panel Sent. cm10 00:24 CBC with Diff Sent. cm10 00:24 LFT's Sent. cm10 00:24 Magnesium Sent. cm10 00:24 NT PRO-BNP Sent. cm10 00:24 PT-INR Sent. cm10 00:24 Troponin HS Sent. cm10 00:24 Initial lab(s) drawn, by me, Urine collected: clean catch specimen, clear. Inserted cm10 saline lock: 20 gauge in right forearm, using aseptic technique. Blood collected. 00:43 US Extremity Venous W Compression Zach In Process Unspecified. EDMS 01:55 CT Chest For PE Angio In Process Unspecified. EDMS 01:59 CT Abd/Pelvis - IV Contrast Only In Process Unspecified. EDMS 03:55 Juvenal Anderson, RN is Primary Nurse. jb4 05:00 No provider procedures requiring assistance completed. IV discontinued, intact, jb4 bleeding controlled, No redness/swelling at site. Pressure dressing applied. Administered Medications: 00:23 Drug: NS 0.9% IV 500 ml IV at bolus once Route: IV; Rate: bolus; Site: right forearm; cm10 00:23 Drug: NS 0.9% IV 1000 ml IV at 125 ml/hr continuous Route: IV; Rate: 125 ml/hr; Site: cm10 right forearm; 00:23 Drug: diphenhydrAMINE IVP 50 mg IVP once Route: IVP; Site: right forearm; cm10 00:23 Drug: Famotidine IVP 40 mg IVP once; dilute with 10 mL 0.9% NaCl; give over 2 minutes cm10 Route: IVP; Site: right forearm; 00:23 Drug: MethylPrednisoLONE IVP 125 mg IVP once Route: IVP; Site: right forearm; cm10 01:29 Drug: morphine IVP or IV 4 mg IVP once over 4 mins Route: IVP; Infused Over: 4 mins; cm10 Site: right forearm; 01:29 Drug: Ondansetron IVP 4 mg IVP once; over 2 minutes Route: IVP; Site: right forearm; cm10 03:04 Drug: Magnesium Sulfate IVPB 2 grams IVPB once over 2 hrs Route: IVPB; Infused Over: 2 jb4 hrs; Site: right forearm; 03:04 Drug: Potassium PO Effervescent Tablet 50 mEq PO once; dissolve in 4 ounces of water or jb4 juice Route: PO; 03:04 Drug: Potassium Chloride IV 20 mEq IV at per protocol once; administer over 1-2 hours jb4 Route: IV; Rate: per protocol; Site: right forearm; 04:13 Not Given (Physician Discretion): ns 0.9% with kcl20 meq/l 1000 ml IV at 125 ml/hr jb4 continuous 04:13 Drug: Potassium PO Effervescent Tablet 50 mEq PO once; dissolve in 4 ounces of water or jb4 juice Route: PO; 05:06 Drug: predniSONE PO 60 mg PO once Route: PO; jb4 Outcome: 04:10 Discharge ordered by . og 05:00 Discharged to home ambulatory, jacek 05:00 Condition: stable 05:00 Discharge instructions given to patient, Instructed on discharge instructions, follow up and referral plans. medication usage, Demonstrated understanding of instructions, follow-up care, medications, Prescriptions given X 3, 05:09 Patient left the ED. jb4 Signatures: Dispatcher [employer] EDNC Ruben Duarte MD MD cha Bryson, James, RN RN jb4 Karina Fernandoj6 Glenny Cuevas RN RN jj7 Trinh Flores RN RN cm10
[2022-12-03] MEDS ORDERED: predniSONE 20 MG TAB ONE (05:07)
[2022-12-03 05:19] VITALS: TEMP 97.7
[2022-12-03 05:36] VITALS: BP 117/85; O2SAT 98
--- NOTE | 2022-12-03 11:18 | EKG ---
Test Date: 2022-12-03 Test Time: 01:31:09 Track Worker: RAMON MEASUREMENT RESULTS: Intervals: Rate: 89 ID: [id number] QRSD: 96 QT: 376 QTc: 457 [place]ancock: P: 72 ID: [id number] QRS: 72 T: 67 INTERPRETIVE STATEMENTS: Sinus rhythm with 1st degree AV block Otherwise normal ECG Compared to ECG 09/10/2022 15:44:45 First degree AV block now present Electronically Signed On 12-03-22 11:17:33 CDT by Mehrdad Cantu
--- NOTE | 2022-12-03 14:33 | RAD REPORT ---
EXAM DESCRIPTION: XR Chest, 1 View CLINICAL HISTORY: The patient is 52 years old and is Male; COUGH TECHNIQUE: Frontal view of the chest. COMPARISON: No relevant prior studies available. FINDINGS: Lungs: Unremarkable. No consolidation. Pleural space: Unremarkable. No pneumothorax. Heart: Unremarkable. Mediastinum: Unremarkable. Bones/joints: No acute findings. IMPRESSION: No acute findings in the chest. Electronically signed by: Mark Cabello MD 12/03/2022 12:41 AM CDT Due to temporary technical issues with the PACS/Fluency reporting system, reports are being signed by the in house radiologists without review as a courtesy to insure prompt reporting. The interpreting radiologist is fully responsible for the content of the report.
--- NOTE | 2022-12-03 14:34 | RAD REPORT ---
EXAM DESCRIPTION: US Duplex Bilateral Lower Extremities Veins CLINICAL HISTORY: PAIN TECHNIQUE: Real-time duplex ultrasound scan of the bilateral lower extremity veins integrating B-mod e two-dimensional vascular structure, Doppler spectral analysis, color flow Doppler imaging and compr ession. COMPARISON: No relevant prior studies available. FINDINGS: Right deep veins: Unremarkable. No DVT in the right common femoral, femoral, proximal deep femoral, popliteal or visualized calf veins. The veins demonstrate normal color flow, are norm ally compressible, with normal phasic flow and/or augmentation response. Right superficial veins: Unremarkable. No thrombus in the visualized right great saphenous vein. Left deep veins: Unremarkable. No DVT in the left common femoral, femoral, proximal deep femoral, popliteal or visualized calf veins. The veins demonstrate normal color flow, are normally compress ible, with normal phasic flow and/or augmentation response. Left superficial veins: Unremarkable. No thrombus in the visualized left great saphenous vein. Soft tissues: No acute findings. No popliteal cyst. IMPRESSION: No evidence for deep venous thrombosis within the bilateral lower extremity. Electronically signed by: Michael Strong MD 12/03/2022 2:19 AM CDT Due to temporary technical issues with the PACS/Fluency reporting system, reports are being signed by the in house radiologists without review as a courtesy to insure prompt reporting. The interpreting radiologist is fully responsible for the content of the report.
--- NOTE | 2022-12-03 14:37 | RAD REPORT ---
EXAM DESCRIPTION: CT Angiography Chest With Intravenous Contrast CLINICAL HISTORY: Cough; Dyspnea TECHNIQUE: Axial computed tomographic angiography images of the chest with intravenous contrast. S agittal and coronal reformatted images were created and reviewed. This CT exam was performed using one or more of the following dose reduction techniques: automated exposure control, adjustment of t he mA and/or kV according to patient size, and/or use of iterative reconstruction technique. MIP reconstructed images were created and reviewed. COMPARISON: No relevant prior studies available. FINDINGS: Limitations: There is poor opacification of the pulmonary arterial tree. Pulmonary arteries: See above. Aorta: No acute findings. No thoracic aortic aneurysm. Lungs: Right lower lobe calcified granulomata. 4 mm left lower lobe subpleural nodule (series 402 image 102). Per Fleischner Society Guidelines, no routine follow-up imaging is recommended. These guidelines do not apply to immunocompromised patients and patients with cancer. Follow up in pa tients with significant comorbidities as clinically warranted. For lung cancer screening, adhere to L suleiman-RADS guidelines. Reference: Radiology. 2017; 284(1):228-43. Pleural space: Unremarkable. No significant effusion. No pneumothorax. Heart: Unremarkable. No cardiomegaly. No significant pericardial effusion. No evidence of RV dysfunction. Bones/joints: Multilevel spondylosis. No acute fracture. No dislocation. Soft tissues: Unremarkable. Lymph nodes: Unremarkable. No enlarged lymph nodes. * A single impression for all exams can be found at the end of this report EXAM DESCRIPTION: CT Abdomen and Pelvis With Intravenous Contrast CLINICAL HISTORY: Abdominal pain TECHNIQUE: Axial computed tomography images of the abdomen and pelvis with intravenous contrast. S agittal and coronal reformatted images were created and reviewed. This CT exam was performed using one or more of the following dose reduction techniques: automated exposure control, adjustment of t he mA and/or kV according to patient size, and/or use of iterative reconstruction technique. COMPARISON: CT Abdomen Pelvis dated 09/10/2022 FINDINGS: ABDOMEN: Liver: The liver is diffusely low in density compatible with steatosis. Gallbladder and bile ducts: Unremarkable. No calcified stones. No ductal dilation. Pancreas: Unremarkable. No mass. No ductal dilation. Spleen: Unremarkable. No splenomegaly. Adrenals: Unremarkable. No mass. Kidneys and ureters: Unremarkable. No solid mass. No hydronephrosis. Stomach and bowel: Colonic diverticula without adjacent inflammatory change. No obstruction. No mucosal thickening. PELVIS: Appendix: Normal caliber appendix. No findings to suggest acute appendicitis. Bladder: Mild circumferential urinary bladder wall thickening. Reproductive: The prostate is mildly enlarged. ABDOMEN and PELVIS: Intraperitoneal space: Unremarkable. No free air. No significant fluid collection. Bones/joints: Interval left total hip arthroplasty. Severe degenerative changes at the right hip articulation. No acute fracture. No dislocation. Soft tissues: Small to moderate fat-containing periumbilical hernia. Small fat-containing bilater al inguinal hernias. Infiltrative changes within the subcutaneous soft tissues along the lateral as pect of the left hip. There is a subincisional collection intimately associated with the iliotibial tract measuring approximately 12.2 cm in craniocaudal dimension and 4 x 4.2 cm in maximum axial dime nsions. Vasculature: Mild atherosclerotic disease. No abdominal aortic aneurysm. Lymph nodes: Unremarkable. No enlarged lymph nodes. * A single impression for all exams can be found at the end of this report IMPRESSION: CT Angiography Chest With Intravenous Contrast: 1. Nondiagnostic evaluation for pulmonary embolic disease secondary to poor contrast bolus timing r esulting in inadequate intravenous contrast opacification of the pulmonary arteries. 2. No focal infiltrate. 3. Other findings as above. CT Abdomen and Pelvis With Intravenous Contrast: 1. Moderate stool. No bowel obstruction. 2. Mild circumferential urinary bladder wall thickening which may be related to bladder outlet obst ruction. Please correlate clinically for cystitis. 3. Interval left total hip arthroplasty. Subincisional collection intimately associated with the iliotibial tract measuring approximately 12.2 x 4 x 4.2 cm. This may represent postoperative seroma /hematoma. Please correlate clinically for signs and symptoms of infection. 4. Other findings as above. Electronically signed by: Michael Strong MD 12/03/2022 3:56 AM CDT Due to temporary technical issues with the PACS/Fluency reporting system, reports are being signed by the in house radiologists without review as a courtesy to insure prompt reporting. The interpreting radiologist is fully responsible for the content of the report.
== END 2022-12-03 05:09 | disposition home or self-care (01) ==
LOC: ER 22:50
DX: R21 Rash and other nonspecific skin eruption (principal); L50.9 Urticaria, unspecified; E87.6 Hypokalemia; E83.42 Hypomagnesemia; I10 Essential (primary) hypertension; Z96.642 Presence of left artificial hip joint
CPT/HCPCS: 93005; 85025; 81001; 80048; 36415; 83735; 85610; 80076; 84484; 83690; 83880; 71275; 74177; 71045; 93970; Q9967; J7512; J3480; J3475; J2405

== ENCOUNTER 2023-01-02 21:43 | Observation (INO) | payer BC ==
--- OUTSIDE RECORDS SUMMARY | 2023-01-02 21:52 | XMS REPORT | Continuity of Care Document ---
:1970 Author Organization [facility] t Address [address] [address] [facility] [address] [place] [address] Care Team Providers Name Role Phone Mick Myles Primary Care Physician Matilde Rodney Attending Clinician Unavailable NUZHAT YADAV Attending Clinician Unavailable NATASHA_Tyree_Nadira Attending Clinician Unavailable Solis Clements Attending Clinician Unavailable NADIYA CHURCHILL Attending Clinician Unavailable Nadiya Churchill DO Attending Clinician Junaid Medina MD Attending Clinician Doctor Unassigned, [place] Attending Clinician Unavailable Tyrone_Solitario Attending Clinician Unavailable Nuzhat Yadav MD Attending Clinician Juan Carlos WEST, Deisy Attending Clinician Ai WEST, Mark Paul Attending Clinician [phone] Radha Bradshaw Attending Clinician SAUL MCFARLAND Attending Clinician Unavailable Nurse, [facility] Attending Clinician Unavailable Saul Henriquez Attending Clinician Therapy, [facility] Attending Clinician Unavailable Stefany Guerrero NP Attending Clinician STEFANY GUERRERO Attending Clinician Unavailable Debby Ambriz Attending Clinician NUZHAT YADAV Admitting Clinician Unavailable NATASHA_Tyree_Nadira Admitting Clinician Unavailable Solis Clements Admitting Clinician Unavailable [place] Admitting Clinician Unavailable STEFANY GUERRERO Admitting Clinician Unavailable Payers Payer Name Policy Type Policy Effective Date Expiration Date Sour ce Number [place] [id number] 2020 00:00:00 BCBS PPO POS EPO [id number] [place] 00:00:00 [place] [id number] 2021 [place] [id number] 2021 2022 [place] - [employer] 00:00:00 00:00:00 (POS) Blue Cross Blue 6 [id number] 2020 Common [employer] of [place] 00:00:00 [facility] Problems Condition Condition Condition Status Onset Resolution Last Treating Co mments Source Name Details Category Date Date Treatment Clinician Date Cellulitis Cellulitis Disease Active C [facility] of of 6- [facility] perineum perineum 00:00: Medica l Center Abdominal Abdominal Disease Active Uni vers pain pain 2-07 ity of 00:00: [address] Branch Obesity Obesity Disease Active Univers (BMI (BMI 2-06 ity of 30-39.9) 30-39.9) 00:00: [address] [id number] Mixed Problem Common hyperlipid Spirit emia - [facility] [id number] Essential Problem Comm on hypertensi Spirit on - [facility] [id number] Type 2 Problem Common diabetes Spirit mellitus - [facility] with [facility] long-term current use of insulin [id number] Rheumatoid Problem Co mmon arthritis Spirit involving - [facility] multiple [facility] unspecifie Medica l d whether Center rheumatoid factor present [id number] Noncomplia Problem Comm on nce Spirit - [facility] [id number] Insomnia, Problem Com mon unspecifie Spirit d type - [facility] [id number] Cutaneous Problem Comm on abscess of Spirit buttock - [facility] [id number] Primary Problem Comm on osteoarthr Spirit itis of [facility] left hip [facility] [id number] Primary Problem Comm on osteoarthr Spirit itis of [facility] right hip [facility] No known No known Disease Unive rs active active ity of problems problems [facility] Allergies, Adverse Reactions, Alerts Allergy Allergy Status Severity Reaction(s) Onset Inactive Treating Comm ents Source Name Type Date Date Clinician No Known DA Active U [facility] Allergie 10-22 [facility] 00:00: [address] NO KNOWN Drug Active Univers ALLERGIE Class ity of S [facility] NO KNOWN Allergy Active [facility] Social History Social Habit Start Date Stop Date Quantity Comments Source History of Tobacco Common Spirit - Use [facility] Exposure to Yes University of SARS-CoV-2 (event) [facility] Gender identity Universit y of [facility] Sexual orientation [facility] History of Social 2022-09-12 2022-09-12 Univers ity of function 00:00:00 00:00:00 [facility] Tobacco use and 2020-03-26 2020-03-26 Former smokeless Uni versity of exposure 00:00:00 00:00:00 tobacco user [facility] Sex Assigned At [birth year] [facility] 00:00:00 00:00:[address] [place] [address] Smoking Status Start Date Stop Date Source Never Smoker Common Spirit - [facility] nter Ex-smoker 2020-03-26 00:00:00 2020-03-26 00:00:[address] [facility] Unknown if ever smoked Univers y [facility] Medications Ordered Filled Start Stop Current Ordering Indication Dosage Frequency Signature Comments Components Source Medication Medication Date Date Medication? Clinician (SIG) Name Name NaCl 0.9% 2022- No 1000mL at 999 Uni vers (NS) bolus 09-12 mL/hr, ity of infusion 15:30: 16:26 1,000 mL, [place] as 1,000 mL 00 :00 IV Medical Infusion, Branch ONCE, 1 dose, On [place] 09/12/22 at 1030, KACY dicyclomine 2022- No 20mg 20 mg, Uni vers (BENTYL) 09-12 Oral, ity of tablet 20 14:30: 14:34 ONCE, 1 [place] mg 00 :00 dose, On Medical [facility] Branch 09/12/22 at 0930, KACY NaCl 0.9% 2022- No 1000mL at 999 Uni vers (NS) bolus 09-12 mL/hr, ity of infusion 13:45: 14:48 1,000 mL, [place] as 1,000 mL 00 :00 IV Medical Infusion, Branch ONCE, 1 dose, On [facility] 09/12/22 at 0845, KACY ondansetron 0 2022- No 4mg 4 mg, Slow Univers (ZOFRAN 09-12 IV Push, ity of (PF)) 13:00: 13:08 ONCE, 1 [place] injection 4 00 :00 dose, On Medi thelma mg [facility] Branch 09/12/22 at 0800, KACY ondansetron 2022-0 Yes [id number] 4mg Take 1 Univers 4 mg 09-12 tablet by ity of disintegrat 00:00: mouth [place] ing tablet 00 every 8 Medica l (eight) Branch hours as needed for Nausea and Vomiting (N/V). Cyclobenzap Cyclobenzap No 1{table QD Cyclobenza rine HCl 10 rine HCl 10 1-30 t_at_be reid HCl MG MG 00:00: dtime_a 10 MG 00 s_neede d} amLODIPine amLODIPine 2023-0 No 1{table QD amLODIPine Besylate 5 Besylate [...] Toujeo 2022-0 No QD Toujeo SoloStar SoloStar -30 SoloStar 300u/ml 300u/ml 00:00: 300u/ml 00 Methocarbam Methocarbam 0 No Methocarba ol 500 MG ol 500 MG -30 mol 500 MG 00:00: 00 BuSpar BuSpar [...] al 40 MG 38 Center tablet multivitami 2021-0 Yes 1{tbl} QD Take 1 CH I [...] [facility] tablet 11:59: mouth Medical 38 daily. [place] metFORMIN Yes 1000mg Take 1,[address] [...] [facility] tablet 11:59: mouth Medical 38 daily. [place] metFORMIN 0 Yes 1000mg Take 1,000 CHI [...] QD Inject 50 CHI S t glargine 7- Units [facility] U-300 conc 00:00: subcutaneo M [...] Yes Use as [facility] diabetic 31 - directed. Suha es gauge x 00:00: Medical [...] Yes Use as [facility] diabetic 31 - directed. Suha es gauge x 00:00: Medical [...] Yes Use as [facility] diabetic 31 - directed. Suha es gauge x 00:00: Medical [...] times daily for 7 days. amoxicillin 0 2021- No 1{tbl} Q.5D Take 1 C HI [...] Spirit 00:00: 00:00 - [facility] 00 :00 [facility] Cleocin 300 Cleocin 300 2020- No 2{capsu TID Cleocin MG MG 08-07 les} 300 MG 00:00: 00:00 00 :00 saw Yes Take by [place] palmetto 2-08 mouth. 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 ity of ORAL 16:23: [address] multivit, Yes Take by Uni vers x,calcium,i 2-08 mouth. ity of jomins 16:23: [place] (MULTIVITAM 50 Medical IN AND Branch MINERAL ORAL) [facility] Yes Take by Univers palmetto 2-08 mouth. 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 ity of ORAL 16:23: [address] Branch multivit, Yes Take by Uni vers x,calcium,i 2-08 mouth. ity of jo,mins 16:23: [place] (MULTIVITAM 50 Medical IN AND Branch MINERAL ORAL) [facility] Yes Take by Univers palmetto 2-08 mouth. 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 ity of ORAL 16:23: [place] 50 Medical Branch multivit,th Yes Take by Uni vers x,calcium,i 2-08 mouth. ity of jo,mins 16:23: [place] (MULTIVITAM 50 Medical IN AND Branch MINERAL ORAL) ondansetron Yes [id number] 4mg Take 1 Univers (ZOFRAN 2-08 tablet by ity of ODT) 4 mg 00:00: mouth [place] disintegrat 00 every 8 Medic al ing tablet (eight) Branch hours as needed for Nausea and Vomiting (N/V). ondansetron Yes [id number] 4mg Take 1 Univers (ZOFRAN 2-08 tablet by ity of ODT) 4 mg 00:00: mouth [place] disintegrat 00 every 8 Medic al ing tablet (eight) Branch hours as needed for Nausea and Vomiting (N/V). ondansetron 2022- No [id number] 4mg Take 1 Univers (ZOFRAN 2-08 07-27 tablet by ity of ODT) 4 mg 00:00: 00:00 mouth [place] disintegrat 00 :00 every 8 Medic al ing tablet (eight) Branch hours as needed for Nausea and Vomiting (N/V). proMETHazin 2020- No 12.5mg 12.5 mg, Univers e 03-19 IV ity of (PHENERGAN) 07:15: 07:15 [place], [place] 12.5 mg in 00 :00 ONCE, 1 Medica l NaCl 0.9% dose, [place] h (NS) 50 mL 03/19/20 at piggyback 0115, 50 mL NaCl 0.9% 2020- No 1000mL at 999 Uni vers (NS) bolus 03-19 mL/hr, ity of infusion 03:45: 05:00 1,000 mL, [place] as 1,000 mL 00 :00 IV Medical Infusion, Branch ONCE, 1 dose, 03/18/20 at 2145, STAT proMETHazin 2020- No 12.5mg 12.5 mg, Univers e 03-19 IV ity of (PHENERGAN) 03:00: [facility] [place] 12.5 mg in 00 :00 ONCE, 1 Medica l NaCl 0.9% dose, Sat Branc h (NS) 50 mL 03/18/20 at piggyback 2100, 50 mL NaCl 0.9% 2020- No 500mL at 999 Univ ers (NS) bolus 03-19 mL/hr, 500 it y of infusion 02:15: 02:30 mL, IV [place] 500 mL 00 :00 Infusion, Medical ONCE, 1 [place] dose, 03/18/20 at 2015, STAT ondansetron 2020- No 4mg 4 mg, Slow Univers (ZOFRAN 03-19 IV Push, ity of (PF)) 02:15: 01:31 ONCE, 1 [place] injection 4 00 :00 dose, Sat Med ical mg 03/18/20 at Branch 2015, KACY proMETHazin Yes [id number] 25mg Insert 1 Univers e 03-19 Suppositor ity of (PHENERGAN) 00:00: y into [place] 25 mg 00 rectum Medical suppository every 4 Branc h (four) hours as needed for Nausea and Vomiting (N/V). proMETHazin Yes [id number] 25mg Insert 1 Univers e 03-19 Suppositor ity of (PHENERGAN) 00:00: y into [place] 25 mg 00 rectum Medical suppository every 4 Branc h (four) hours as needed for Nausea and Vomiting (N/V). proMETHazin Yes [id number] 25mg Insert 1 Univers e 03-19 Suppositor ity of (PHENERGAN) 00:00: y into [place] 25 mg 00 rectum Medical suppository every 4 Branc h (four) hours as needed for Nausea and Vomiting (N/V). proMETHazin 2022- No [id number] 25mg Insert 1 Univers e 03-19 07-27 [...] 1045, For Branch infusion 1 dose
Ad mold engraver as an IV infusion over 60 minutes [...] 1045, For Branch infusion 1 dose
Ad mold engraver as an IV infusion over 60 minutes [...] mg 00 :00 ONCE, 1 Medical dose, [place] Branch 03/12/20 at 1900, Routine
prepared foods production team member approving Restricted medication : DREVER, STEFANY G NaCl 0.9% 2020- No 1000mL at 999 Uni vers (NS) bolus 03-13 mL/hr, ity of infusion 00:15: 02:45 1,000 mL, [place] as 1,000 mL 00 :00 IV Medical Infusion, Branch ONCE, 1 dose, [place] 03/12/20 at 1815, KACY ondansetron Yes [id number] 4mg Take 1 Univers (ZOFRAN 1-24 tablet by ity of ODT) 4 mg 00:00: mouth [place] disintegrat 00 every 8 Medic al ing tablet (eight) Branch hours as needed for Nausea and Vomiting (N/V). ibuprofen Yes [id number] 800mg Take 1 Univers 800 mg 1-24 tablet by ity of tablet 00:00: mouth [place] 00 every 6 Medical (six) Branch hours as needed for Pain (scale 1-3) or Temp > 38.5 C. ondansetron Yes [id number] 4mg Take 1 Univers (ZOFRAN 1-24 tablet by ity of ODT) 4 mg 00:00: mouth [place] disintegrat 00 every 8 Medic al ing tablet (eight) Branch hours as needed for Nausea and Vomiting (N/V). ibuprofen Yes [id number] 800mg Take 1 Univers 800 mg 1-24 tablet by ity of tablet 00:00: mouth [place] 00 every 6 Medical (six) Branch hours as needed for Pain (scale 1-3) or Temp > 38.5 C. ondansetron Yes [id number] 4mg Take 1 Univers (ZOFRAN 1-24 tablet by ity of ODT) 4 mg 00:00: mouth [place] disintegrat 00 every 8 Medic al ing tablet (eight) Branch hours as needed for Nausea and Vomiting (N/V). ibuprofen Yes [id number] 800mg Take 1 Univers 800 mg 1-24 tablet by ity of tablet 00:00: mouth [place] 00 every 6 Medical (six) Branch hours as needed for Pain (scale 1-3) or Temp > 38.5 C. ondansetron Yes [id number] 4mg Take 1 Univers (ZOFRAN 1-24 tablet by ity of ODT) 4 mg 00:00: mouth [place] disintegrat 00 every 8 Medic al ing tablet (eight) Branch hours as needed for Nausea and Vomiting (N/V). ibuprofen Yes [id number] 800mg Take 1 Univers 800 mg 1-24 tablet by ity of tablet 00:00: mouth [place] 00 every 6 Medical (six) Branch hours as needed for Pain (scale 1-3) or Temp > 38.5 C. ondansetron Yes [id number] 4mg Take 1 Univers (ZOFRAN 1-24 tablet by ity of ODT) 4 mg 00:00: mouth [place] disintegrat 00 every 8 Medic al ing tablet (eight) Branch hours as needed for Nausea and Vomiting (N/V). ibuprofen Yes [id number] 800mg Take 1 Univers 800 mg 1-24 tablet by ity of tablet 00:00: mouth [place] 00 every 6 Medical (six) Branch hours as needed for Pain (scale 1-3) or Temp > 38.5 C. ondansetron Yes [id number] 4mg Take 1 Univers (ZOFRAN 1-24 tablet by ity of ODT) 4 mg 00:00: mouth [place] disintegrat 00 every 8 Medic al ing tablet (eight) Branch hours as needed for Nausea and Vomiting (N/V). ibuprofen Yes [id number] 800mg Take 1 Univers 800 mg 1-24 tablet by ity of tablet 00:00: mouth [place] 00 every 6 Medical (six) Branch hours as needed for Pain (scale 1-3) or Temp > 38.5 C. lisinopriL Yes TAKE 1 Unive rs 10 mg 1-04 TABLET BY ity of tablet 00:00: MOUTH [place] EVERY DAY Medical Branch lisinopriL 2020-0 Yes TAKE 1 Unive rs 10 mg 1-04 TABLET BY ity of tablet 00:00: MOUTH [place] EVERY DAY Medical Branch lisinopriL 2020-0 Yes TAKE 1 Unive rs 10 mg 1-04 TABLET BY ity of tablet 00:00: MOUTH [place] EVERY DAY Medical Branch lisinopriL 2020-0 Yes TAKE 1 Unive rs 10 mg 1-04 TABLET BY ity of tablet 00:00: MOUTH [place] EVERY DAY Medical Branch lisinopriL 2020-0 Yes TAKE 1 Unive rs 10 mg 1-04 TABLET BY ity of tablet 00:00: [facility] EVERY DAY Medical Branch lisinopriL 2020-0 Yes TAKE 1 Unive rs 10 mg 1-04 TABLET BY ity of tablet 00:00: [facility] EVERY DAY Medical Branch lisinopriL 2020-0 Yes TAKE 1 Unive rs 10 mg 1-04 TABLET BY ity of tablet 00:00: [facility] EVERY DAY Medical Branch lisinopriL 2020-0 Yes TAKE 1 Unive rs 10 mg 1-04 TABLET BY ity of tablet 00:00: [facility] EVERY DAY Medical Branch lisinopriL 2020-0 Yes TAKE 1 Unive rs 10 mg 1-04 TABLET BY ity of tablet 00:00: [facility] EVERY DAY Medical Branch atorvastati 2019-1 Yes 40mg Take 40 mg Univers n 40 mg 2-18 by mouth. ity of tablet 00:00: [place] [facility] atorvastati 2019- Yes 40mg Take 40 mg Univers n 40 mg 2-18 by mouth. ity of tablet 00:00: [place] [facility] atorvastati 2019- Yes 40mg Take 40 mg Univers n 40 mg 2-18 by mouth. ity of tablet 00:00: [place] [facility] atorvastati 2019- Yes 40mg Take 40 mg Univers n 40 mg 2-18 by mouth. ity of tablet 00:00: [place] [facility] atorvastati 2019-1 Yes 40mg Take 40 mg Univers n 40 mg 2-18 by mouth. ity of tablet 00:00: [place] [facility] atorvastati 2019- Yes 40mg Take 40 mg Univers n 40 mg 2-18 by mouth. ity of tablet 00:00: Medical Branch atorvastati 2020-1 Yes 40mg Take 40 mg Univers n 40 mg 2-18 by mouth. ity of tablet 00:00: Medical Branch atorvastati 2020-1 Yes 40mg Take 40 mg Univers n 40 mg 2-18 by mouth. ity of tablet 00:00: Medical Branch atorvastati 2020- Yes 40mg Take 40 mg Univers n 40 mg 2-18 by mouth. ity of tablet 00:00: [place] [facility] metFORMIN 2020-1 Yes TAKE 2 Univer s 500 mg 2-17 TABLETS BY ity of tablet 00:00: MOUTH [place] 00 EVERY Medical MORNING Branch AND EVERY EVENING metFORMIN 2020-1 Yes TAKE 2 Univer s 500 mg 2-17 TABLETS BY ity of tablet 00:00: MOUTH [place] 00 EVERY Medical MORNING Branch AND EVERY EVENING metFORMIN 2020-1 Yes TAKE 2 Univer s 500 mg 2-17 TABLETS BY ity of tablet 00:00: MOUTH [place] 00 EVERY Medical MORNING Branch AND EVERY EVENING metFORMIN 2020-1 Yes TAKE 2 Univer s 500 mg 2-17 TABLETS BY ity of tablet 00:00: MOUTH [place] 00 EVERY Medical MORNING Branch AND EVERY EVENING metFORMIN 2020-1 Yes TAKE 2 Univer s 500 mg 2-17 TABLETS BY ity of tablet 00:00: MOUTH [place] 00 EVERY Medical MORNING Branch AND EVERY EVENING metFORMIN 2020-1 Yes TAKE 2 Univer s 500 mg 2-17 TABLETS BY ity of tablet 00:00: MOUTH [place] 00 EVERY Medical MORNING Branch AND EVERY EVENING metFORMIN 2020-1 Yes TAKE 2 Univer s 500 mg 2-17 TABLETS BY ity of tablet 00:00: MOUTH [place] 00 EVERY Medical MORNING Branch AND EVERY EVENING metFORMIN 2020-1 Yes TAKE 2 Univer s 500 mg 2-17 TABLETS BY ity of tablet 00:00: MOUTH [place] 00 EVERY Medical MORNING Branch AND EVERY EVENING metFORMIN 2020-1 Yes TAKE 2 Univer s 500 mg 2-17 TABLETS BY ity of tablet 00:00: MOUTH [place] 00 EVERY Medical MORNING Branch AND EVERY EVENING semaglutide 2020-1 Yes 1{tbl} Take 1 Un shaniqua (RYBELSUS) 1-30 tablet by ity of 3 mg Tab 00:00: mouth. [place] 00 Medical Branch semaglutide 2020-1 Yes 1{tbl} Take 1 Un sh[place] (RYBELSUS) 1-30 tablet by ity of 3 mg Tab 00:00: mouth. [address] semaglutide 2019-02 Yes 1{tbl} Take 1 Un sh[place]a (RYBELSUS) 1-30 tablet by ity of 3 mg Tab 00:00: mouth. [place] [facility] semaglutide 2019-02 Yes 1{tbl} Take 1 Un sh[place] (RYBELSUS) 1-30 tablet by ity of 3 mg Tab 00:00: mouth. [place] [facility] semaglutide 2019-02 Yes 1{tbl} Take 1 Un sh[place]a (RYBELSUS) 1-30 tablet by ity of 3 mg Tab 00:00: mouth. [place] [facility] semaglutide 2019-02 Yes 1{tbl} Take 1 Un sh[place] (RYBELSUS) 1-30 tablet by ity of 3 mg Tab 00:00: mouth. [place] [facility] semaglutide 2019-02 Yes 1{tbl} Take 1 Un [place] (RYBELSUS) 1-30 tablet by ity of 3 mg Tab 00:00: mouth. [place] [facility] semaglutide 2019-02 Yes 1{tbl} Take 1 Un sh[place]a (RYBELSUS) 1-30 tablet by ity of 3 mg Tab 00:00: mouth. [place] [facility] semaglutide 2019-02 Yes 1{tbl} Take 1 Un [place] (RYBELSUS) 1-30 tablet by ity of 3 mg Tab 00:00: mouth. [address] Atorvastati Atorvastati No 1{table QD Atorvastat [...] MG 10 MG t} 10 MG Spirit [facility] Celecoxib Celecoxib No 1{capsu BID Celecoxib Common 200 MG 200 MG le_with 200 MG Spirit _food} [facility] Belsomra 15 Belsomra 15 No 1{table QD Belsomra Common MG MG t_at_be 15 MG Spirit dtime_a - [facility]MIN metFORMIN No 1{table QID metFORMIN Common HCl 500 MG HCl 500 MG t_with_ HCl 500 MG Spirit a_meal} [facility] Atorvastati Atorvastati No 1{table QD Atorvastat Common n Calcium n Calcium t} in Calcium Spirit 40 MG 40 MG 40 MG - [facility] Pantoprazol Pantoprazol No 1{table QD Pantoprazo Common e Sodium 40 e Sodium 40 t} le Sodium Spirit MG MG 40 MG - [facility] metFORMIN metFORMIN No 1{table QID metFORMIN [...] 2022-09-12 16:30:00 142 mm[Hg] Univer sity of [facility] Diastolic blood 2022-09-12 16:30:00 86 mm[Hg] Unive rsity [facility] Heart rate 2022-09-12 16:30:00 79 /min [facility] Respiratory rate 2022-09-12 16:30:00 20 /min [facility] Oxygen saturation in 2022-09-12 16:30:00 95 /min [facility] Arterial blood by [facility] Pulse oximetry Branch Body temperature 2022-09-12 12:44:00 36.56 Nafisa [facility] height 2022-09-12 12:44:00 177.8 cm [facility] Body weight 2022-09-12 12:44:00 122.471 kg [facility] BMI 2022-09-12 12:44:00 38.74 kg/m2 [facility] height 2022-03-18 09:00:00 71.00 [in_i] [facility] weight 2022-03-18 09:00:00 250 [lb_av] [facility] temperature 2022-03-18 09:00:00 97.2 [degF] [facility] bmi 2022-03-18 09:00:00 34.86 kg/m2 [facility] blood pressure 2022-03-18 09:00:00 131 mm[Hg] [facility] - systolic [facility] blood pressure 2022-03-18 09:00:00 80 mm[Hg] [facility] - diastolic [facility] HEIGHT 2020-08-14 04:00:00 180.3 cm WEIGHT 2020-08-14 04:00:00 124.739 kg height 2020-08-04 10:00:00 71.00 [in_i] Common [facility] weight 2020-08-04 10:00:00 283.4 [lb_av] [facility] temperature 2020-08-04 10:00:00 95.2 [degF] [facility] bmi 2020-08-04 10:00:00 39.52 kg/m2 [facility] oximetry 2020-08-04 10:00:00 97 % Common S pirit - [facility] respiratory rate 2020-08-04 10:00:00 16 /min Comm on Spirit - [facility] blood pressure 2020-08-04 10:00:00 131 mm[Hg] [facility] - systolic [facility] blood pressure 2020-08-04 10:00:00 80 mm[Hg] [facility] - diastolic [facility] Systolic blood 2020-03-19 06:42:06 137 mm[Hg] Univer sity of pressure [place] [facility] Diastolic blood 2020-03-19 06:42:06 92 mm[Hg] Unive rsity of pressure [place] [facility] Heart rate 2020-03-19 06:42:06 90 /min Universi ty of [place] [facility] Respiratory rate 2020-03-19 06:42:06 17 /min Univ ersity of [place] [facility] Oxygen saturation in 2020-03-19 06:42:06 97 /min University of Arterial blood by [facility] Pulse oximetry Branch Body temperature 2020-03-19 00:47:00 37.22 Nafisa Univ ersity of [place] [facility] Body weight 2020-03-19 00:47:00 [facility] Systolic blood 2020-03-19 00:15:00 126 mm[Hg] Univer sity of pressure [place] [facility] Diastolic blood 2020-03-19 00:15:00 84 mm[Hg] Unive rsity of pressure [place] [facility] Heart rate 2020-03-19 00:15:00 102 /[facility] Body temperature 2020-03-19 00:15:00 36.83 Nafisa Univ ersity of [place] [facility] Respiratory rate 2020-03-19 00:15:00 20 /min Univ ersity of [place] [facility] Oxygen saturation in 2020-03-19 00:15:00 95 /min University of Arterial blood by [facility] Pulse oximetry Branch Systolic blood 2020-03-15 17:31:00 144 mm[Hg] Univer sity of pressure [place] [facility] Diastolic blood 2020-03-15 17:31:00 88 mm[Hg] Unive rsity of pressure [place] [facility] Heart rate 2020-03-15 17:31:00 86 /min Universi ty of [place] [facility] Body temperature 2020-03-15 17:31:00 36.94 Nafisa Univ ersity of [place] [facility] Respiratory rate 2020-03-15 17:31:00 18 /min Univ ersity of [place] [facility] Oxygen saturation in 2020-03-15 17:31:00 95 /min University of Arterial blood by [place] Medi thelma Pulse oximetry Branch Body weight 2020-03-15 15:55:00 122.471 kg Universi ty of [place] [facility] Systolic blood 2020-03-15 17:31:00 144 mm[Hg] Univer sity of pressure [place] [facility] Diastolic blood 2020-03-15 17:31:00 88 mm[Hg] Unive rsity of pressure [place] [facility] Heart rate 2020-03-15 17:31:00 86 /min Universi ty of [place] [facility] Body temperature 2020-03-15 17:31:00 36.94 Nafisa Univ ersity of [place] [facility] Respiratory rate 2020-03-15 17:31:00 18 /min Univ ersity of [place] [facility] Oxygen saturation in 2020-03-15 17:31:00 95 /min University of Arterial blood by [facility] thelma Pulse oximetry Branch Body weight 2020-03-15 15:55:00 122.471 kg [facility] Heart rate 2020-03-13 02:30:00 87 /min [facility] Respiratory rate 2020-03-13 02:30:00 25 /min [facility] Oxygen saturation in 2020-03-13 02:30:00 92 /min [facility] blood by [facility] P[facility] oxim[facility] Systolic blood 2020-03-13 02:00:00 107 mm[Hg] [facility] Diastolic blood 2020-03-13 02:00:00 60 mm[Hg] [facility] Body temperature 2020-03-12 23:41:00 38.17 Nafisa [facility] Body weight 2020-03-12 23:41:00 126.1 kg [facility] Systolic blood 2020-08-18 08:00:00 131 mm[Hg] [facility] Diastolic blood 2020-08-18 08:00:00 78 mm[Hg] [facility] S robyn [facility] pressure [facility] Heart rate 2020-08-18 08:00:00 67 /min [facility] Body temperature 2020-08-18 08:00:00 36.28 Nafisa [facility] Respiratory rate 2020-08-18 08:00:00 18 /min [facility] Oxygen saturation in 2020-08-18 08:00:00 95 /min [facility] Arterial blood by Medical Ce nter Pulse oximetry Body height 2020-08-14 04:00:00 180.3 cm [facility] Body weight 2020-08-14 04:00:00 124.739 kg [facility] BMI 2020-08-14 04:00:00 38.35 kg/m2 [facility] Procedures Procedure Date / Time Performing Clinician Source Performed EKG-12 LEAD 2022-09-12 16:38:01 Nadiya Churchill [facility] CREATINE KINASE 2022-09-12 13:54:00 Nadiya Churchill [facility] COMP. METABOLIC PANEL 2022-09-12 13:54:00 Nadiya Churchill [facility] ([id number]) [facility] URINALYSIS 2022-09-12 13:48:00 Nadiya Churchill [facility] POCT GLUCOSE 2022-09-12 13:07:00 Nadiya Churchill [facility] (AUTOMATED) [facility] LIPASE 2022-09-12 13:02:00 Nadiya Churchill [facility] TROPONIN I 2022-09-12 13:02:00 Nadiya Churchill [facility] CBC WITH DIFF 2022-09-12 13:02:00 Nadiya Churchill [facility] CONSENT/REFUSAL FOR 2022-09-12 12:36:32 [facility] Unassigned, No [facility] Name Medical Branch REFERRAL- 2022-02-07 06:01:00 Doctor Unassigned, No [facility] REQUEST/RESPONSE Name [facility] HEPATITIS C ANTIBODY 2021-08-27 04:29:00 [facility] POCT-GLUCOSE METER 2020-08-18 07:49:00 [facility] BASIC METABOLIC PANEL 2020-08-18 05:24:00 [facility] (7) [facility] CBC W/PLT COUNT & AUTO 2020-08-18 05:20:00 [facility] DIFFERENTIAL [facility] (MANUAL DIFFERENTIAL) 2020-08-18 05:20:00 [facility] CBC W/PLT COUNT & AUTO 2020-08-18 05:20:00 [facility] DIFFERENTIAL [facility] POCT-GLUCOSE METER 2020-08-17 20:14:00 [facility] POCT-GLUCOSE METER 2020-08-17 16:32:00 [facility] POCT-GLUCOSE METER 2020-08-17 11:05:00 [facility] CBC W/PLT COUNT & AUTO 2020-08-17 08:09:00 [facility] DIFFERENTIAL [facility] (MANUAL DIFFERENTIAL) 2020-08-17 08:09:00 [facility] MAGNESIUM 2020-08-17 08:09:00 [facility] BASIC METABOLIC PANEL 2020-08-17 08:09:00 [facility] (7) [facility] CBC W/PLT COUNT & AUTO 2020-08-17 08:09:00 [facility] DIFFERENTIAL [facility] VANCOMYCIN LEVEL, 2020-08-17 05:27:00 Deisy Rangel [facility] POCT-GLUCOSE METER 2020-08-16 21:08:00 [facility] POCT-GLUCOSE METER 2020-08-16 17:01:00 Shi, [facility] POCT-GLUCOSE METER 2020-08-16 11:49:00 Aureaemmett [facility] POCT-GLUCOSE METER 2020-08-16 08:34:[address] [facility] CBC W/PLT COUNT & AUTO 2020-08-16 04:52:00 Loraine [facility] DIFFERENTIAL Center BASIC METABOLIC PANEL 2020-08-16 04:52:00 Loraine [facility] (7) Center CBC W/PLT COUNT & AUTO 2020-08-16 04:52:00 [facility] POCT-GLUCOSE METER 2020-08-15 21:29:00 Juan Carlos [facility] VANCOMYCIN LEVEL, 2020-08-15 20:14:00 Micha Sanchez [facility] POCT-GLUCOSE METER 2020-08-15 16:54:00 [facility]UCOSE METER 2020-08-15 11:07:00 Rangel [facility] POCT-GLUCOSE METER 2020-08-15 07:22:00 Juan Carlos [facility] CBC W/PLT COUNT & AUTO 2020-08-15 04:15:00 Loraine [facility] DIFFERENTIAL Center BASIC METABOLIC PANEL 2020-08-15 04:15:00 [facility] (7) Center CBC W/PLT COUNT & AUTO 2020-08-15 04:15:00 [facility] POCT-GLUCOSE METER 2020-08-14 20:59:00 Juan Carlos [facility] CT ABDOMEN/PELVIS WITH 2020-08-14 18:18:00 Darrian Jurado [facility] IV CONTRAST Center SARS-COV2/RT-PCR ([facility] 2020-08-14 17:12:00 Darrian Jurado [facility]) Center POCT-GLUCOSE METER 2020-08-14 16:42:00 [facility] POCT-GLUCOSE METER 2020-08-14 11:10:00 [facility] US TESTICULAR (SCROTUM) 2020-08-14 08:55:[address] [facility] POCT-GLUCOSE METER 2020-08-14 07:22:00 [facility] URINE CULTURE 2020-08-14 07:01:00 Loraine [facility] URINALYSIS W/ REFLEX 2020-08-14 07:01:00 Loraine [facility] URINE CULTURE Center BLOOD CULTURE 2020-08-14 06:56:00 Loraine [facility] CBC W/PLT COUNT & AUTO 2020-08-14 05:47:00 [facility] BASIC METABOLIC PANEL 2020-08-14 05:47:00 Loraine [facility] (7) [place] HEMOGLOBIN A1C 2020-08-14 05:47:00 [facility]/INR 2020-08-14 05:47:00 [facility] MAGNESIUM 2020-08-14 05:47:00 [facility] PHOS[facility]ORUS 2020-08-14 05:47:00 [facility] CBC W/PLT COUNT & AUTO 2020-08-14 05:47:00 [facility] POCT-GLUCOSE METER 2020-08-14 04:10:00 [facility] BASIC METABOLIC PANEL 2020-03-19 05:19:00 Radha Oliveira [facility] (NA, K, CL, CO2, Medical Branch GLUCOSE, BUN, CREATININE, CA) AC VBG + LACTIC ACID 2020-03-19 03:24:00 Radha Oliveira [facility] URINALYSIS 2020-03-19 02:34:00 Radha Oliveira [facility] LIPASE 2020-03-19 01:30:00 Radha Oliveira [place] [facility] MAGNESIUM 2020-03-19 01:30:00 Radha Oliveira [facility] COMP. METABOLIC PANEL 2020-03-19 01:30:00 Radha Oliveira [facility] ([id number]) Medical Branch CBC WITH DIFF 2020-03-19 01:29:00 Radha Oliveira [facility] CONSENT/REFUSAL FOR 2020-03-19 00:39:12 Doctor Unassigned, No [facility] Name [facility] [id number] CONSENT 2020-03-15 06:01:00 Doctor Unassigned, No Unive [facility] Name [facility] XR CHEST 1 VW 2020-03-13 00:48:13 Stefany Guerrero [facility] LIPASE 2020-03-13 00:11:00 Stefany Guerrero [facility] HEPATIC FUNCTION PANEL 2020-03-13 00:11:00 Stefany Guerrero [facility] ([id number]) (ALB,T.PRO,BILI Medical Branch T,BU/BC,ALT,AST,ALK PHOS) BASIC METABOLIC PANEL 2020-03-13 00:11:00 Stefany Guerrero [facility] (NA, K, CL, CO2, Medical Branch GLUCOSE, BUN, CREATININE, CA) CBC WITH DIFF 2020-03-13 00:11:00 Stefany Guerrero [facility] URINALYSIS 2020-03-13 00:11:00 Stefany Guerrero [facility] ADC,CLC OR LCC ONLY - 2020-03-13 00:11:00 Stefany Guerrero [facility] INFLUENZA A & B DIRECT Medical B ranch ANTIGEN COVID-19 (ID NOW RAPID 2020-03-13 00:11:00 Stefany Guerrero [facility] TESTING) Medical Branch NOTICE OF PRIVACY 2020-03-12 23:39:50 Doctor Unassigned, No [facility] Name [facility] CONSENT/REFUSAL FOR 2020-03-12 23:39:34 Doctor Unassigned, No [facility]REATMENT Name Medical Branch Plan of Care Planned Activity Planned Date Details Comments Source Future Scheduled 2023-03-26 Lipid panel (procedure) [facility] 00:00:00 [code = 03734710] Medical Ce nter Future Scheduled 2023-03-26 Lipid panel (procedure) [facility] 00:00:00 [code = 18526173] Medical Ce nter Future Scheduled 2023-03-26 Lipid panel (procedure) [facility] 00:00:00 [code = 27073841] Medical Ce nter Future Scheduled 2023-03-26 Lipid panel (procedure) [facility] 00:00:00 [code = 07034684] Medical Ce nter Future Scheduled 2023-03-26 Lipid panel (procedure) [facility] 00:00:00 [code = 44512483] Medical Ce nter Future Scheduled 2023-03-26 Lipid panel (procedure) [facility] 00:00:00 [code = 98757985] Medical Ce nter Future Scheduled 2023-03-26 Lipid panel (procedure) [facility] 00:00:00 [code = 17259310] Medical Ce nter Future Scheduled 2023-03-26 Lipid panel (procedure) [facility] 00:00:00 [code = 40831654] Medical Ce nter Future Scheduled 2023-03-26 Lipid panel (procedure) [facility] 00:00:00 [code = 85614350] Medical Ce nter Future Scheduled 2022-10-18 Influenza [...] [facility] 00:00:00 (12+) [code = DEPRESSION [facility] SCREENING (12+)] Future Scheduled 2020-11-[address] measurement (procedure) [facility] [code = 75062852] Future Scheduled 2020-11-[address] [facility] 00:00:00 measurement (procedure) [facility] [code = 76160485] Future Scheduled 2020-11-[address] [facility] 00:00:00 measurement (procedure) [facility] [code = 43133426] Future Scheduled 2020-11-[address] [facility] 00:00:00 measurement (procedure) [facility] Center [code = 30975316] Future Scheduled 2020-11-[address] [facility] 00:00:00 measurement (procedure) [facility] Center [code = 82970064] Future Scheduled 2020-11-[address] [facility] 00:00:00 measurement (procedure) [facility] Center [code = 88475771] Future Scheduled 2020-11-[address] [facility] 00:00:00 measurement (procedure) [facility] Center [code = 95803185] Future Scheduled 2020-11-[address] [facility] 00:00:00 measurement (procedure) [facility] Center [code = 39061982] Future Scheduled 2020-11-[address] [facility] 00:00:00 measurement (procedure) [facility] Center [code = 73781177] Future Scheduled 2020-10-18 INFLUENZA VACCINE (#1) C [...] screening Medical Cent er (procedure) [code = 703969541] Future Scheduled 1986-08-10 Human immunodeficiency [facility]00 virus screening [facility] Cent er (procedure) [code = 528727029] Future Scheduled 1986-08-10 Human immunodeficiency [facility] 00:00:00 virus screening Medical Cent er (procedure) [code = 740627614] Future Scheduled 1986-08-10 Human immunodeficiency [facility] 00:00:00 virus screening Medical Cent er (procedure) [code = 089592175] Future Scheduled 1986-08-10 Human immunodeficiency [facility] 00:00:00 virus screening Medical Cent er (procedure) [code = 385144400] Future Scheduled 1983 COVID-19 VACCINE (1) [facility] 00:00:00 [code = COVID-19 VACCINE Med ical Center (1)] Future Scheduled 1983 COVID-19 VACCINE (1) [facility] 00:00:00 [code = COVID-19 VACCINE Med ical Center (1)] Future Scheduled [address] [facility] 00:00:00 Counseling [address] Screening Med [facility] (12+) [code = Tobacco Cessation Counseling [...] [facility]:00 (regime/therapy) [code = [facility] 838156490] Future Scheduled 1981-08-10 Urine screening for [facility] 00:00:00 protein (procedure) [code [facility] = 094309720] Future Scheduled 1981-08-10 DIABETIC EYE EXAM [code = [facility] 00:00:00 DIABETIC EYE EXAM] Medical C enter Future Scheduled 1981-08-10 Diabetic foot examination [facility] 00:00:00 (regime/therapy) [code = [facility] 185711568] Future Scheduled 1981-08-10 Urine screening for [facility] 00:00:00 protein (procedure) [code [facility] = 602756277] Future Scheduled 1981-08-10 DIABETIC EYE EXAM [code = [facility] 00:00:00 DIABETIC EYE EXAM] Medical C enter Future Scheduled 1981-08-10 Urine screening for [facility] 00:00:00 protein (procedure) [code [facility] = 597193550] Future Scheduled 1981-08-10 DIABETIC EYE EXAM [code = [facility] 00:00:00 DIABETIC EYE EXAM] Medical C enter Future Scheduled 1981-08-10 Urine screening for [facility] 00:00:00 protein (procedure) [code Me dical Center = 943687007] Future Scheduled 1981-08-10 DIABETIC EYE EXAM [code = [facility] 00:00:00 DIABETIC EYE EXAM] Medical C enter Future Scheduled 1981-08-10 Urine screening for [facility] 00:00:00 protein (procedure) [code Me dical Center = 275596695] Future Scheduled 1981-08-10 DIABETIC EYE EXAM [code = [facility] 00:00:00 DIABETIC EYE EXAM] Medical C enter Future Scheduled 1981-08-10 Urine screening for [facility] 00:00:00 protein (procedure) [code Me dical Center = 351784186] Future Scheduled 1981-08-10 DIABETIC EYE EXAM [code = [facility] 00:00:00 DIABETIC EYE EXAM] Medical C enter Future Scheduled 1981-08-10 Urine screening for [facility] 00:00:00 protein (procedure) [code Me dical Center = 309962435] Future Scheduled 1981-08-10 DIABETIC EYE EXAM [code = [facility] 00:00:00 DIABETIC EYE EXAM] Medical C enter Future Scheduled 1981-08-10 Urine screening for [facility] 00:00:00 protein (procedure) [code Me dical Center = 116046162] Future Scheduled 1981-08-10 DIABETIC EYE EXAM [code = [facility] 00:00:00 DIABETIC EYE EXAM] Medical C enter Future Scheduled 1981-08-10 Urine screening for [facility] 00:00:00 protein (procedure) [code Me dical Center = 353602775] Future Scheduled 1977-08-10 PNEUMOCOCCAL VACCINE 0-64 [facility] [...] colon Medical Ce nter (procedure) [code = 642039845] Future Scheduled 1971 Screening for malignant [facility] 00:00:00 neoplasm of colon Medical Ce nter (procedure) [code = 389461738] Future Scheduled 1971 CT Colonography (combo) [facility] 00:00:00 [code = CT Colonography Medi thelma Center (combo)] Future Scheduled 1971 Screening for malignant [facility] 00:00:00 neoplasm of colon Medical Ce nter (procedure) [code = 739961162] Future Scheduled 1971 Screening for malignant [facility] 00:00:00 neoplasm of colon Medical Ce nter (procedure) [code = 725078258] Future Scheduled 1971 Screening for malignant [facility] 00:00:00 neoplasm of colon Medical Ce nter (procedure) [code = 207740012] Future Scheduled 1971 Screening for malignant [facility] 00:00:00 neoplasm of colon Medical Ce nter (procedure) [code = 094397699] Future Scheduled 1971 Sigmoidoscopy [code = [facility] Sigmoidoscopy] Medical Cente r Future Scheduled 1971 CT Colonography (combo) [facility] 00:00:00 [code = CT Colonography Medi thelma Center (combo)] Future Scheduled 1971 Screening for malignant [facility] 00:00:00 neoplasm of colon Medical Ce nter (procedure) [code = 961098460] Future Scheduled 1971 Screening for malignant [facility] 00:00:00 neoplasm of colon Medical Ce nter (procedure) [code = 599483249] Future Scheduled 1971 Screening for malignant [facility] 00:00:00 neoplasm of colon Medical Ce nter (procedure) [code = 811113136] Future Scheduled 1971 Screening for malignant [facility] 00:00:00 neoplasm of colon Medical Ce nter (procedure) [code = 939259973] Future Scheduled 1971 Sigmoidoscopy [code = [facility]:00:[facility] S[facility]oidoscopy] Medical Cente r Future Scheduled 1971 CT Colonography (combo) [facility] 00:00:00 [code = CT Colonography Medi thelma Center (combo)] Future Scheduled 1971 Screening for malignant [facility] 00:00:00 neoplasm of colon Medical Ce nter (procedure) [code = 824432570] Future Scheduled 1971 Screening for malignant [facility] 00:00:00 neoplasm of colon Medical Ce nter (procedure) [code = 435248933] Future Scheduled 1971 Screening for malignant [facility] 00:00:00 neoplasm of colon Medical Ce nter (procedure) [code = 076720599] Future Scheduled 1971 Screening for malignant [facility] 00:00:00 neoplasm of colon Medical Ce nter (procedure) [code = 168539041] Future Scheduled 1971 Sigmoidoscopy [code = [facility] Sigmoidoscopy] Medical Cente r Future Scheduled 1971 CT Colonography (combo) [facility] 00:00:00 [code = CT Colonography Medi thelma Center (combo)] Future Scheduled 1971 Screening for malignant [facility] 00:00:00 neoplasm of colon Medical Ce nter (procedure) [code = 677852748] Future Scheduled 1971 Screening for malignant [facility] 00:00:00 neoplasm of colon Medical Ce nter (procedure) [code = 421338307] Future Scheduled 1971 Screening for malignant [facility] 00:00:00 neoplasm of colon Medical Ce nter (procedure) [code = 385615288] Future Scheduled 1971 Screening for malignant [facility] 00:00:00 neoplasm of colon Medical Ce nter (procedure) [code = 624981078] Future Scheduled 1971 Sigmoidoscopy [code = [facility] S[facility]oidoscopy] Medical Cente r Future Scheduled 1971 CT Colonography (combo) [facility] 00:00:00 [code = CT Colonography Medi thelma Center (combo)] Future Scheduled 1971 Screening for malignant [facility] 00:00:00 neoplasm of colon Medical Ce nter (procedure) [code = 514542393] Future Scheduled 1971 Screening for malignant [facility] 00:00:00 neoplasm of colon Medical Ce nter (procedure) [code = 001252086] Future Scheduled 1971 Screening for malignant [facility] 00:00:00 neoplasm of colon Medical Ce nter (procedure) [code = 804160470] Future Scheduled 1971 Screening for malignant [facility] 00:00:00 neoplasm of colon Medical Ce nter (procedure) [code = 239423425] Future Scheduled 1971 Sigmoidoscopy [code = [facility] S[facility]oidoscopy] Medical Cente r Future Scheduled 1971 CT Colonography (combo) [facility] 00:00:00 [code = CT Colonography [facility] (combo)] Future Scheduled 1971 Screening for malignant [facility] 00:00:00 neoplasm of colon Medical Ce nter (procedure) [code = 578998818] Future Scheduled 1971 Screening for malignant [facility] 00:00:00 neoplasm of colon Medical Ce nter (procedure) [code = 912007859] Future Scheduled 1971 Screening for malignant [facility] 00:00:00 neoplasm of colon Medical Ce nter (procedure) [code = 487137805] Future Scheduled 1971 Screening for malignant [facility] 00:00:00 neoplasm of colon Medical Ce nter (procedure) [code = 536969931] Future Scheduled 1971 Sigmoidoscopy [code = [facility] 00:00:[facility] Sigmoidoscopy] Medical Cente r Future Scheduled 1971 Sigmoidoscopy [code = [facility] 00:00:[facility] Sigmoidoscopy] Medical Cente r Future Scheduled 1971 CT Colonography (combo) [facility] 00:00:00 [code = CT Colonography [facility] (combo)] Future Scheduled 1971 Screening for malignant [facility] 00:00:00 neoplasm of colon Medical Ce nter (procedure) [code = 430784064] Future Scheduled 1971 Screening for malignant [facility] 00:00:00 neoplasm of colon Medical Ce nter (procedure) [code = 863068573] Future Scheduled 1971 Screening for malignant [facility] 00:00:00 neoplasm of colon Medical Ce nter (procedure) [code = 379693521] Future Scheduled 1971 Screening for malignant [facility] 00:00:00 neoplasm of colon Medical Ce nter (procedure) [code = 860284191] Encounters Start End Encounter Admission Attending Care Care Encounter Source Date/Time Date/Time Type Type Clinicians Facility Department ID 2022-03-18 [facility] [id number] Common 12:58:01 [id number] [facility] 2022-02-21 Out[facility] [id number] Common 14:10:02 [id number] [facility] 2021-03-14 Outpatient STLML[facility] [id number] Common 13:31:16 [id number] [facility] 2021-03-14 Outpatient Rodney, STLMLC [facility] [id number] Common 13:16:25 Avnee [id number] [facility] 2020-12-16 Emergency [facility] [id number] Univers 22:17:[address] [facility] 2020-12-16 Emergency [facility] [id number] [facility] ER JOES YADAV Urology [id number] JOSE 03:51:00 NUZHAT 2022-12-29 2022-12-29 Outpatient FOG_Burke_R AOSM AOSM [id number] Leti 00:00:00 00:00:00 Tereza [id number] [facility] 2022-12-25 2022-12-25 Outpatient FOG_Burke_R AOSM AOSM [id number] Leti 00:00:00 00:00:00 Tereza [id number] [facility] 2022-12-25 2022-12-25 Outpatient FOG_Burke_R AOSM AOSM [id number] Leti 00:00:00 00:00:00 Tereza [id number] [facility] 2022-10-29 2022-10-30 [facility] [id number] [facility] 05:42:00 11:30:[address] [place] [address] [facility] 2022-10-30 2022-10-30 Outpatient FOG_Burke_R AOSM AOSM [id number] Leti 00:00:00 00:00:00 Tereza [id number] [facility] 2022-10-30 2022-10-30 Outpatient FOG_Burke_R AOSM AOSM [id number] Leti 00:00:00 00:00:00 Tereza [id number] [facility] 2022-10-30 2022-10-30 Outpatient FOG_Burke_R AOSM AOSM [id number] Leti 00:00:00 00:00:00 Tereza [id number] [facility] 2022-10-30 2022-10-30 Outpatient FOG_Burke_R AOSM AOSM [id number] Leti 00:00:00 00:00:00 Tereza [id number] [facility] 2022-10-30 2022-10-30 Outpatient FOG_Burke_R AOSM AOSM [id number] Leti 00:00:00 00:00:00 Tereza [id number] [facility] 2022-10-30 2022-10-30 Outpatient FOG_Burke_R AOSM AOSM [id number] Leti 00:00:00 00:00:00 Tereza [id number] [facility] 2022-10-23 2022-10-23 Outpatient FOG_Burke_R AOSM AOSM [id number] Leti 00:00:00 00:00:00 Tereza [id number] [facility] 2022-10-22 2022-10-22 [id number] [facility] 19:19:00 19:19:[address] 2022-10-18 2022-10-18 Outpatient FOG_Burke_R AOSM AOSM [id number] Leti 00:00:00 00:00:00 Tereza [id number] [facility] 2022-10-12 2022-10-12 Outpatient FOG_Burke_R AOSM AOSM [id number] Leti 00:00:00 00:00:00 Tereza [id number] [facility] 2022-10-12 2022-10-12 Outpatient FOG_Burke_R AOSM AOSM [id number] [id number] Leti 00:00:00 00:00:00 Tereza [id number] [facility] 2022-10-12 2022-10-12 Outpatient FOG_Burke_R AOSM AOSM 658 1092-20 Leti 00:00:00 00:00:00 Tereza [id number] Ortho pe dic [facility] 2022-10-11 2022-10-11 Outpatient FOG_Burke_R AOSM AOSM 658 1092-20 Leti 00:00:00 00:00:00 Tereza [id number] Ortho pe dic Sports Medicin e 2022-09-12 2022-09-12 Emergency X BRIAN CHURCHILL ERT [id number] Univers 07:42:00 11:45:[address] [facility] 2022-09-12 2022-09-12 Emergency BRIAN Churchill 1.2.840.114 [id number] Univers 07:42:00 11:45:00 Nadiya [place] 350.1.13.10 ity of [place] 4.2.7.2.686 [place] [facility] [phone] [facility] 0[address] Branch 2022-03-18 2022-03-18 [facility]ICE [facility] [id number] Co mmon 00:00:00 00:00:00 VISIT NEW Spir it PT LEVEL 4 - [facility] 2022-02-07 2022-02-07 Telephone Adam [facility] 1.2.840.114 [id number] [facility] 00:00:00 00:00:00 Junaid [facility] 350.1.13.10 it y of [place] 4.2.7.2.686 [place] as LUIS?BLEA [phone] [address] MEDICAL OFFICE BUILDING 2022-02-07 2022-02-07 Orders Doctor DARRIAN 1.2.840.114 [id number] Univers 00:00:00 00:00:00 Only Unassigned, JUAN JOSE 350.1.13.10 ity of [facility] 4.2.7.2.686 [place] as [phone] [facility] 00[address] Branch 2021-08-27 2021-08-27 Lab [facility] [id number] 00:00:00 00:00:00 [facility] 2020-12-20 2020-12-20 Outpatient Baum[facility]L [facility] 535390- [address] [place] 11:25:00 11:25:00 [facility]07 [facility] 2020-08-14 2020-08-18 [facility] Nuzhat Yadav [facility] [id number] 03:51:00 11:45:00 Encounter [facility] 2020-08-14 2020-08-14 Travel [facility] [id number] [facility] 00:[facility] 00:00:00 [facility] 2020-08-07 2020-08-07 (TEL) STLC STLC [id number] Co mmon 00:00:00 00:00:00 Spirit - [facility] 2020-08-04 2020-08-04 [facility]ICE [facility] [id number] Co mmon 00:00:00 00:00:00 VISIT NEW Spir it PT LEVEL 4 - [facility] 2020-03-18 2020-03-19 Emergency Radha Oliveira [facility] 1.2.840.114 [id number] Univers 18:44:00 00:48:00 Tammy [place] 350.1.13.10 i ty [facility] 4.2.7.2.686 [place] [phone] [facility] 0[address] Branch 2020-03-18 2020-03-18 Outpatient Latoya [facility] [id number] Univers 18:30:00 18:30:00 [facility] 2020-03-18 2020-03-18 Nurse Nurse, [facility] 1.2 .840.114 [id number] Univers 18:29:02 18:29:11 [facility] 350.1.13.10 ity [facility] 4.2.7.2.686 [place] as [facility] [phone] Sc dical nal [address] [place] [address] 2020-03-18 2020-03-18 Outpatient Latoya [facility] [id number] Univers 17:40:00 17:40:00 [facility] 2020-03-15 2020-03-15 Nurse Therapy, [facility] 1.2.840.114 [id number] 09:44:59 18:56:55 Visit [facility] Cov[facility] SPECIALTY 350.1.13.10 Infusion CARE 4.2.7.2.686 CENTER AT [phone] [place] [address] [facility] 2020-03-15 2020-03-15 Nurse Therapy, [facility] Covid Infusion [facility] 1.2.840.114 [id number] Univers 09:44:59 18:56:55 Visit Stefany Guerrero SPECIALTY 350.1.13.10 ity of CARE 4.2.7.2.686 [facility] C[facility] AT [phone] Sc dical VICTORY [address] [place] 2020-03-15 2020-03-15 Outpatient R CESAR [facility] [id number] Univers 09:30:00 09:30:[address] [facility] 2020-03-15 2020-03-15 Orders Doctor DARRIAN 1.2.840.114 [id number] 00:00:00 00:00:00 Only Unassigned, JUAN JOSE 350.1.13.10 [place] [facility] [phone] 009 2020-03-15 2020-03-15 Orders Doctor DARRIAN 1.2.840.114 [id number] Univers 00:00:00 00:00:00 Only Unassigned, JUAN JOSE 350.1.13.10 ity of [place] [facility] 4.2.7.2.686 [place] [phone] [facility] [address] Branch 2020-03-14 2020-03-14 Outpatient R CESAR [facility] [id number] Univers 09:00:00 09:00:[address] [facility] 2020-03-12 2020-03-12 Emergency PardoDebby enamorado [facility] 1.2.840 .114 [id number] Univers 17:49:00 21:01:00 Stefany Guerrero 350.1.13.10 ity [facility] 4.2.7.2.686 [facility] [phone] [facility] [address] 2020-03-12 2020-03-12 Emergency X CESAR [facility] ERT [id number] Univers 17:49:00 21:01:00 [facility] Results Test Description Test Time Test Comments Results Result [facility] e Comments - XR PELVIS 02/182022-10-30 VIEWS 07:09:00 [facility] : 1970 Sex: M Patient Name: LINDA ROSENTHAL Unit No: [id number] EXAMS: CPT CODE: [id number] XR PELVIS 1/2 VIEWS 14525 INTRAOPERATIVE LEG LENGTH FILM COMMENT: COMPARISON: No prior exams available. In progress left hip replacement is noted. AP portable left hip COMMENT: The patient is status post joint replacement which is articulating normally. at 0709 Reported and signed by: Samy Whitten MD CC: Solis Clements MD Technologist: Kemar Mancini R.T. Transcribed D/ (0709) Neeraj [facility] NAME: LINDA ROSENTHAL [address] [place] [address] PHYS: Solis Viera MD : 1970 AGE: 52 SEX: M [place], [place] [address] LOC: Y.301 B PHONE #: [phone] EXAM DATE: 10/29/2022 STATUS: DIS IN FAX #: [phone] RAD #: D/C DT 10/30/2022 PAGE 1 Signed Report Patient Name: LINDA ROSENTHAL Unit No: [id number] EXAMS: CPT CODE: [id number] XR PELVIS 1/2 VIEWS 45176 (Continued) Orig Print D/T: S: 10/30/2022 (1255) [facility] NAME: LINDA ROSENTHAL [address] [place] [address] PHYS: Solis Viera MD : 1970 AGE: 52 SEX: M [place], [place] [address] LOC: Y.301 B PHONE #: [phone] EXAM DATE: 10/29/2022 STATUS: DIS IN FAX #: [phone] RAD #: D/C DT 10/30/2022 PAGE 2 Signed Report - XR PELVIS 1/2 2022-10-30 VIEWS 07:09:00 [facility] 1970 Sex: M Patient Name: LINDA ROSENTHAL Unit No: [id number] EXAMS: CPT CODE: [id number] XR PELVIS 1/2 VIEWS 90053 INTRAOPERATIVE LEG LENGTH FILM COMMENT: COMPARISON: No prior exams available. In progress left hip replacement is noted. AP portable left hip COMMENT: The patient is status post joint replacement which is articulating normally. at 0709 Reported and signed by: Samy Whitten MD CC: Solis Clements MD Technologist: Kemar Mancini R.T. Transcribed D/ (0756) ThonyJCL [facility] NAME: LINDA ROSENTHAL [address] [facility] PHYS: Solis Viera MD : 1970 AGE: 52 SEX: M [place], [place] [address] LOC: Y.301 B PHONE #: [phone] EXAM DATE: 10/29/2022 STATUS: DIS IN FAX #: [phone] RAD #: D/C DT 10/30/2022 PAGE 1 Signed Report Patient Name: LINDA ROSENTHAL Unit No: [id number] EXAMS: CPT CODE: [id number] XR PELVIS 1/2 VIEWS 78783 (Continued) Orig Print D/T: S: 10/30/2022 (1255) [facility] NAME: LINDA ROSENTHAL [address] [facility] PHYS: Solis Viera MD : 1970 AGE: 52 SEX: M [place], [place] [address] LOC: Y.301 B PHONE #: [phone] EXAM DATE: 10/29/2022 STATUS: DIS IN FAX #: [phone] RAD #: D/C DT 10/30/2022 PAGE 2 [...] the dora mmended formula for GFRby the [facility], [facility] for Adults.The GFR will not calcul ate if the sex is unknown or if t hepatient's age is <18 years. CREATININE (test code = 1.00 mg/dL 0.70-1.30 N CREAT) CALCIUM (test code = CA) 9.2 mg/dL 8.5-10.1 N SPECIMEN COMMENT: POD #[id number] 05:57:00 Test Item Value Reference Range Interpretation Comments HEMOGLOBIN (test code = HGB) 12.0 g/dL 12-16 N HEMATOCRIT (test code = HCT) 36.2 % 37-47 L SPECIMEN COMMENT: POD #[id number] 05:24:00 Test Item Value Reference Range Interpretation Comments GLUBED (test code = 190 mg/dL 60-99 H The norm al fasting GLUBED) blood glucose r cj for a non-diabetica dult is 60-99 mg/dL. Tw o hours after meals, no rmal blood glucose l evels should beless t ibrahim 140 mg/dL.Please no te new normal range. [id number] 22:30:00 Test Item Value Reference Range Interpretation Comments GLUBED (test code = 223 mg/dL 60-99 H The norm al fasting GLUBED) blood glucose r cj for a non-diabetica dult is 60-99 mg/dL. Tw o hours after meals, no rmal blood glucose l evels should beless t ibrahim 140 mg/dL.Please no te new normal range. [id number] 16:56:00 Test Item Value Reference Range Interpretation Comments GLUBED (test code = 207 mg/dL 60-99 H The norm al fasting GLUBED) blood glucose r cj for a non-diabetica dult is 60-99 mg/dL. Tw o hours after meals, no rmal blood glucose l evels should beless t ibrahim 140 mg/dL.Please no te new normal range. [id number] 09:21:00 Test Item Value Reference Range Interpretation Comments GLUBED (test code = 174 mg/dL 60-99 H The norm al fasting GLUBED) blood glucose r cj for a non-diabetica dult is 60-99 mg/dL. Tw o hours after meals, no rmal blood glucose l evels should beless t ibrahim 140 mg/dL.Please no te new normal range. [id number] 06:41:00 Test Item Value Reference Range Interpretation [...] be considered for these patients.DONE A T: [facility] [address] [facility] [place], [place] [address] GLYCOSYLATED HEMOGLOBIN (HA1C)2022-10-22 20:42:00 Test Item Value Reference Range Interpretation Comments GLYCOSYLATED 8.3 % 4.8-5.9 H Any condition t hat shortens HEMOGLOBIN (HA1C) erythocyte survival or (test code = GLYHGB) decreas esmean erythrocyte age (e.g., dora very from acute blood los s,hemolytic anemia) will fa lsely lower HGBA1c resultsr egardless of the method used . HGBA1c results from shawn roman HbSS, HbCC, and HbSc must be interpreted with cautiongiven th e pathological pr ocesses, including anemi a,increased red cell turnov er, transfusion req uirements, thatadversely i mpact HGBA1c as a marker of long-term glycemiccontrol . Alternative for ms of testing such as fructosaminesho uld be considered for these patients. COMPREHENSIVE METABOLIC [id number] 20:04:00 Test Item Value Reference Range Interpretation [...] TOTAL (test code = ALKP) CBC W/AUTO [id number] 19:31:00 Test Item Value Reference Range Interpretation [...] N (test code = NRBC) CBC WITH [id number] 14:26:40 Test Item Value Reference Range Interpretation Comments WBC (test code = 6.76 See_Comment [Automated 8047-2) message] The sy stem which generated this [...] RDW-SD (test code = 43.8 fL 38.5-51.6 27652-6) RDW-CV (test code = 13.8 % 12.1-15.4 788-0) PLT (test code = 295 See_Comment [Automated 777-3) message] The sy stem which generated this result transmitted reference range : 150 - 328 10*3/ ?L. The reference r cj was not used to interpret this result as normal/abnormal . MPV (test code = 11.2 fL 9.8-13.0 95590-5) IPF % (test code = 6.0 % 1.2-10.7 Platelet count 5862843698) measured by fluorescence method. NRBC/100 WBC (test 0.0 See_Comment [Automat ed code = 0483538006) message] The system which generated this result transmitted reference range : 0.0 - 10.0 /100 WBCs. The refer ence range was not u sed to interpret th is result as normal/abnormal . NRBC x10^3 (test code See_Comment [Auto mated = 5960579359) message] The s ystem which generated this result transmitted reference range : 10*3/?L. The reference range was not used to interpret this result as normal/abnormal . GRAN MAT (NEUT) % 42.6 % (test code = 770-8) IMM GRAN % (test code 0.30 % = 5761355564) LYMPH % (test code = 45.4 % 736-9) MONO % (test code = 9.5 % 5905-5) EOS % (test code = 1.8 % 713-8) BASO % (test code = 0.4 % 706-2) GRAN MAT x10^3(ANC) 2.88 10*3/uL 1.99-6.95 (test code = 3205643244) IMM GRAN x10^3 (test 0.00-0.06 code = 4449413922) LYMPH x10^3 (test code 3.07 10*3/uL 1.09-3.23 = 731-0) MONO x10^3 (test code 0.64 10*3/uL 0.36-1.02 = 742-7) EOS x10^3 (test code = 0.12 10*3/uL 0.06-0.53 711-2) BASO x10^3 (test code 0.03 10*3/uL 0.01-0.09 = 704-7) EDVIN CELLS (test code 2+ See_Comment A [Auto mated = 7183-0) message] The sy stem which generated this result transmitted reference range : (none). The reference range was not used to interpret this result as normal/abnormal . LG GRAN LYMPHS (test Rare Rare code = 3479679283) REACT LYMPHS (test Rare code = 9653459436) GIANT PLATELETS (test Present See_Comment A [Auto mated code = 9758-9) message] The system which generated this result transmitted reference range : (none). The reference range was not used to interpret this result as normal/abnormal . Lab Interpretation Abnormal (test code = 77667-8) [id number] 13:55[facility]30 Test Item Value Reference Range Interpretation Comments TROPONIN I (test code = 0.034 ng/mL <=0.034 5680327218) ЕЛЕНА (test code = ЕЛЕНА) Reference (Normal) [...] biotin. Lab Interpretation Normal (test code = 41803-9) [facility]2023-[facility] 13:43:48 Test Item Value Reference Range Interpretation Comments LIPASE (test code = 5735392502) 59 U/L 0-220 Lab Interpretation (test code = Normal 50818-8) [facility] GLUCOSE (AUTOMATED)2022-09-12 13:15:24 Test Item Value Reference Range Interpretation Comments POCT GLU (test code = 5028274603) 142 mg/dL 70-110 H Lab Interpretation (test code = Abnormal 74218-4) [facility] GLUCOSE(AGE >30DAYS)2022-09-12 13:07:00 Test Item Value Reference Range Interpretation Comments POCT Glu (age>30days) (test code = 142 mg/dL 70-110 A 3342) Lab Interpretation (test code = Abnormal 98987-0) [facility] [id number] 10:38:58 Test Item Value Reference Range Interpretation Comments Hepatitis C Ab (test code = Nonreactive Nonreactive 98040-9) ЕЛЕНА (test code = ЕЛЕНА) Diving Board Assembler ID - DB Lab Interpretation (test Normal code = 05789-2) [facility] [id number] 10:38:58 Test Item Value Reference Range Interpretation Comments Hepatitis C Ab (test code = Nonreactive Nonreactive 15572-1) ЕЛЕНА (test code = ЕЛЕНА) Diving Board Assembler ID - DB Lab Interpretation (test Normal code = 56555-9) [facility] [id number] 10:38:58 Test Item Value Reference Range Interpretation Comments HEPATITIS C ANTIBODY (BEAKER) Nonreactive Nonreactive (test code = 367) Diving Board Assembler ID - DBBlood Culture - Routine (Left Venipuncture)2020-08-19 10:01:00 Test Item Value Reference Range Interpretation Comments Result (test code = No growth in 5 days 6463-4) [facility] (Left Venipuncture)2020-08-19 10:01:00 Test Item Value Reference Range Interpretation Comments Result (test code = No growth in 5 days 6463-4) [facility] [id number] 10:01:00 Test Item Value Reference Range Interpretation Comments CULTURE (BEAKER) (test No growth in 5 days code = 1095) BLOOD [id number] 10:01:00 Test Item Value Reference Range Interpretation Comments CULTURE (BEAKER) (test No growth in 5 days code = 1095) POC-Glucose [id number] 08:00:00 Test Item Value Reference Range Interpretation Comments POC-Glucose Meter (test 249 mg/dL 70-110 H : TE STED AT [facility] code = 1538) [address] [place] 273058: Diving Board Assembler/Techni adrian ID = [id number] for Estevan Bright Lab Interpretation (test Abnormal code = 61472-4) [facility] [id number] 08:00:00 Test Item Value Reference Range Interpretation Comments POC-Glucose Meter (test 249 mg/dL 70-110 H : TE STED AT [facility] code = 1538) [address] [place] 273058: Diving Board Assembler/Techni adrian ID = [id number] for Estevan Bright Lab Interpretation (test Abnormal code = 05517-4) [facility] [id number] 08:00:00 Test Item Value Reference Range Interpretation Comments POC-GLUCOSE METER 249 mg/dL 70-110 H : TESTED A T [facility] 1317 (BEAKER) (test code [facility], = 1538) [place] 607768: Diving Board Assembler/Techni adrian ID = [id number] for Ventura Aguilar CBC with platelet count + automated [id number] 05:55:00 Test Item Value Reference Range Interpretation Comments WBC (test code = 6690-2) 4.8 See_Comment [A utomated message] The system Document [employer] generated this result transmitted ref erence range: 4.0 - 10 .0 K/L. The refe rence range was not u sed to interpret this result as normal/abnor mal. RBC (test code = 789-8) 4.22 See_Comment [Au tomated message] The system Document [employer] generated this result transmitted ref erence range: 4.20 - 5 .80 M/L. The refe rence range was not u sed to interpret this result as normal/abnor mal. MCHC (test code = 786-4) 33.5 See_Comment L [A utomated message] The system Document [employer] generated this result transmitted ref erence range: [...] See_Comment [Aut omated message] 777-3) The system Document [employer] generated this result transmitted ref erence range: 150 - 43 0 K/CU MM. The referen ce range was not u sed to interpret this result as normal/abnor mal. MPV (test code = 10.3 fL 6.0-11.5 55212-4) nRBC (test code = 413) 0 See_Comment [Aut omated message] The system Document [employer] generated this result transmitted ref erence range: 0 - 0 /1 00 WBC. The refere nce range was not u sed to interpret this result as normal/abnor mal. Lab Interpretation (test Abnormal code = 74377-9) [facility] [id number] 05:55:00 Test Item Value Reference Range Interpretation Comments % Neutros (manual) (test 33 % code = 1359) % Lymphs (manual) (test 55 % code = 1360) % Monos (manual) (test 8 % code = 1361) % Eos (manual) (test 4 % code = 1362) # Neutros (manual) (test 1.58 See_Comment L [A utomated message] code = 1365) The system [employer] generated this result transmitted ref erence range: 1.80 - 8 .00 K/L. The refe rence range was not u sed to interpret this result as normal/abnor mal. # Lymphs (manual) (test 2.64 See_Comment [Au tomated message] code = 1366) The system Document [employer] generated this result transmitted ref erence range: 1.48 - 4 .50 K/L. The refe rence range was not u sed to interpret this result as normal/abnor mal. # Monos (manual) (test 0.38 See_Comment [Aut omated message] code = 1367) The system Document [employer] generated this result transmitted ref erence range: 0.00 - 1 .30 K/L. The refe rence range was not u sed to interpret this result as normal/abnor mal. # Eos (manual) (test 0.19 See_Comment [Autom ated message] code = 1368) The system Document [employer] generated this result transmitted ref erence range: 0.00 - 0 .50 K/L. The refe rence range was not u sed to interpret this result as normal/abnor mal. Total Counted (test code 100 = 1351) WBC Morphology (test Normal code = 487) Platelet Morphology Normal (test code = 486) RBC Morphology (test Normal code = 762) Lab Interpretation (test Abnormal code = 37705-7) [facility] with platelet count + automated [id number] 05:55:00 Test Item Value Reference Range Interpretation Comments WBC (test code = 6690-2) 4.8 See_Comment [A utomated message] The system Document [employer] generated this result transmitted ref erence range: 4.0 - 10 .0 K/L. The refe rence range was not u sed to interpret this result as normal/abnor mal. RBC (test code = 789-8) 4.22 See_Comment [Au tomated message] The system Document [employer] generated this result transmitted ref erence range: 4.20 - 5 .80 M/L. The refe rence range was not u sed to interpret this result as normal/abnor mal. MCHC (test code = 786-4) 33.5 See_Comment L [A utomated message] The system Document [employer] generated this result transmitted ref erence range: [...] See_Comment [Aut omated message] 777-3) The system Document [employer] generated this result transmitted ref erence range: 150 - 43 0 K/CU MM. The referen ce range was not u sed to interpret this result as normal/abnor mal. MPV (test code = 10.3 fL 6.0-11.5 02240-9) nRBC (test code = 413) 0 See_Comment [Aut omated message] The system Document [employer] generated this result transmitted ref erence range: 0 - 0 /1 00 WBC. The refere nce range was not u sed to interpret this result as normal/abnor mal. Lab Interpretation (test Abnormal code = 42782-9) [facility] [id number] 05:55:00 Test Item Value Reference Range Interpretation Comments % Neutros (manual) (test 33 % code = 1359) % Lymphs (manual) (test 55 % code = 1360) % Monos (manual) (test 8 % code = 1361) % Eos (manual) (test 4 % code = 1362) # Neutros (manual) (test 1.58 See_Comment L [A utomated message] code = 1365) The system Document [employer] generated this result transmitted ref erence range: 1.80 - 8 .00 K/L. The refe rence range was not u sed to interpret this result as normal/abnor mal. # Lymphs (manual) (test 2.64 See_Comment [Au tomated message] code = 1366) The system Document [employer] generated this result transmitted ref erence range: 1.48 - 4 .50 K/L. The refe rence range was not u sed to interpret this result as normal/abnor mal. # Monos (manual) (test 0.38 See_Comment [Aut omated message] code = 1367) The system Document [employer] generated this result transmitted ref erence range: 0.00 - 1 .30 K/L. The refe rence range was not u sed to interpret this result as normal/abnor mal. # Eos (manual) (test 0.19 See_Comment [Autom ated message] code = 1368) The system Document [employer] generated this result transmitted ref erence range: 0.00 - 0 .50 K/L. The refe rence range was not u sed to interpret this result as normal/abnor mal. Total Counted (test code 100 = 1351) WBC Morphology (test Normal code = 487) Platelet Morphology Normal (test code = 486) RBC Morphology (test Normal code = 762) Lab Interpretation (test Abnormal code = 70936-0) [facility] W/PLT COUNT & AUTO [id number] 05:55:00 Test Item Value Reference Range Interpretation [...] (test code Normal = 762) Basic Metabolic [id number] 05:36:00 Test Item Value Reference Range Interpretation Comments Sodium (test code = 138 meq/L 080-936 8510-2) Potassium (test code = 3.9 meq/L 3.6-5.5 2823-3) Chloride (test code = 105 meq/L 98-106 2075-0) CO2 (test code = 22 meq/L 20-29 8-9) BUN (test code = 4 mg/dL 10-26 L 3094-0) Creatinine (test code 0.91 mg/dL 0.50-1.20 = 2160-0) Glucose (test code = 285 mg/dL 70-110 H 2345-7) Calcium (test code = 9.7 mg/dL 8.5-10.5 61874-2) EGFR (test code = 107 mL/min/1.73 [place] [address]-0) NOT ACCURATE CREATININE CLEARANCE IN PREDICTING GLOMERULAR FILTRATION RATE . ESTIMATED GFR I S NOT APPLICABLE FOR DIALYSIS PATIENTS. ЕЛЕАН (test code = ЕЛЕНА) Diving Board Assembler ID - [id number] ID - [id number] ID - [id number] ID - [id number] ID - [id number] ID - [id number] ID - [id number] ID - [id number] ID - [id number] ID - [id number] ID - [id number] ID - [id number] ID - [id number] Lab Interpretation Abnormal (test code = 04240-2) [facility] Metabolic [id number] 05:36:00 Test Item Value Reference Range Interpretation Comments Sodium (test code = 138 meq/L 951-829 7543-2) Potassium (test code = 3.9 meq/L 3.6-5.5 2823-3) Chloride (test code = 105 meq/L 98-106 2075-0) CO2 (test code = 22 meq/L 20-29 2028-9) BUN (test code = 4 mg/dL 10-26 L 3094-0) Creatinine (test code 0.91 mg/dL 0.50-1.20 = 2160-0) Glucose (test code = 285 mg/dL 70-110 H 2345-7) Calcium (test code = 9.7 mg/dL 8.5-10.5 04589-1) EGFR (test code = 107 mL/min/1.73 [place] [address]-1) NOT ACCURATE CREATININE CLEARANCE IN PREDICTING GLOMERULAR FILTRATION RATE . ESTIMATED GFR I S NOT APPLICABLE FOR DIALYSIS PATIENTS. ЕЛЕНА (test code = ЕЛЕНА) Diving Board Assembler ID - [id number] ID - leva91Afjcweec ID - eujo53Dnkcnfvs ID - rtbs20Jsgesgxc ID - ylth84Lglcygwf ID - ndww20Xmptnzbj ID - fhzu37Phaepzxk ID - cxjk83Oudllrfc ID - lmbk64Qhzvuklp ID - kvxx01Jngqhoch ID - pixh14Qtptdnlj ID - xcol42Cacwaduf ID - zdxs12 Lab Interpretation Abnormal (test code = 56613-6) [facility] METABOLIC [id number] 05:36:00 Test Item Value Reference Range Interpretation [...] S NOT APPLICABLE FOR DIALYSIS PATIEN TS. Diving Board Assembler ID - [id number] ID - jrld09Cixrixoc ID - dzfr81Qwnizibr ID - rilf94Xrwuqwng ID - gkbz40Npflrzvp ID - zmsg49Zgfkzrzo ID - hloc94Vccbqadi ID - kxeb10Bmjmhbmk ID - vmxt16Oorxqjmn ID - vkwg85Ggloxxfa ID - tstn99Dinhzxuw ID - hady38Vedllcoz ID - wykw61JWIH-ADBOAUR [id number] 20:26:00 Test Item Value Reference Range Interpretation Comments POC-GLUCOSE METER 183 mg/dL 70-110 H : TESTED A T [address] (BEAKER) (test code [address], = 1538) [place] [address]: Diving Board Assembler/Techni adrian ID = [id number] for Halima Neff POCT-GLUCOSE [id number] 16:44:00 Test Item Value Reference Range Interpretation Comments POC-GLUCOSE METER 196 mg/dL 70-110 H : TESTED A T [address] (BEAKER) (test code [address], = 1538) [place] [address]: Diving Board Assembler/Techni adrian ID = [id number] for Alicia Barcenas POCT-GLUCOSE [id number] 11:16:00 Test Item Value Reference Range Interpretation Comments POC-GLUCOSE METER 320 mg/dL 70-110 H : TESTED A T [address] (BEAKER) (test code [address], = 1538) [place] [address]: Diving Board Assembler/Techni adrian ID = [id number] for Alicia Barcenas CBC W/PLT COUNT & AUTO [id number] 09:00:00 Test Item Value Reference Range Interpretation [...] MORPHOLOGY (BEAKER) (test code Normal = 762) Domwjhoku7895-95-35 08:35:00 Test Item Value Reference Range Interpretation Comments Magnesium (test code = 1.9 mg/dL 1.5-3.0 97646-9) ЕЛЕНА (test code = ЕЛЕНА) Diving Board Assembler ID - [id number] ID - [id number] ID - [id number] ID - [id number] Lab Interpretation (test Normal code = 17168-6) [facility] 08:35:00 Test Item Value Reference Range Interpretation Comments Magnesium (test code = 1.9 mg/dL 1.5-3.0 51007-4) ЕЛЕНА (test code = ЕЛЕНА) Diving Board Assembler ID - [id number] ID - [id number] ID - DYBSG617Hbupocod ID - [id number] Lab Interpretation (test Normal code = 62412-1) [facility] 08:35:00 Test Item Value Reference Range Interpretation Comments MAGNESIUM (BEAKER) (test code = 1.9 mg/dL 1.5-3.0 627) Diving Board Assembler ID - [id number] ID - [id number] ID - YGZSB020Heorcimd ID - [id number] METABOLIC SVMVK3025-12-73 08:34:00 Test Item Value Reference Range Interpretation [...] S NOT APPLICABLE FOR DIALYSIS PATIEN TS. Diving Board Assembler ID - [id number] ID - [id number] ID - XHMDC239Bjzqbxct ID - HOBTC780Lgfojcav ID - FYCFS714Yzddjltk ID - LKBDO530Brvwqyha ID - MPLOB632Mcovhdof ID - XCXNT713Phvgkbjc ID - YMWHK994Vlekevie ID - [id number] Vancomycin level, [id number] 06:00:00 Test Item Value Reference Range Interpretation Comments Vancomycin Tr (test code = 11.1 ug/mL 10.0-20.0 4092-3) ЕЛЕНА (test code = ЕЛЕНА) Diving Board Assembler ID - [id number] Lab Interpretation (test Normal code = 79584-7) [facility], fjxsxw8960-37-77 06:00:00 Test Item Value Reference Range Interpretation Comments Vancomycin Tr (test code = 11.1 ug/mL 10.0-20.0 4092-3) ЕЛЕНА (test code = ЕЛЕНА) Diving Board Assembler ID - [id number] Lab Interpretation (test Normal code = 52418-9) [facility] Hospital[facility]ANCOMYCIN LEVEL, [id number] 06:00:00 Test Item Value Reference Range Interpretation Comments VANCOMYCIN TROUGH (BEAKER) (test 11.1 ug/mL 10.0-20.0 code = 522) Diving Board Assembler ID - [id number]-RVOHXAA [id number] 21:21:00 Test Item Value Reference Range Interpretation Comments POC-GLUCOSE METER 270 mg/dL 70-110 H : TESTED A T [address] (BEAKER) (test code [address], = 1538) [place] [address]: Diving Board Assembler/Techni adrian ID = [id number] for sammi Peter POCT-GLUCOSE [id number] 17:13:00 Test Item Value Reference Range Interpretation Comments POC-GLUCOSE METER 266 mg/dL 70-110 H : TESTED A T [address] (BEAKER) (test code [address], = 1538) [place] [address]: Diving Board Assembler/Techni adrian ID = [id number] for Garrett h, Nilam POCT-GLUCOSE [id number] 12:01:00 Test Item Value Reference Range Interpretation Comments POC-GLUCOSE METER 283 mg/dL 70-110 H : TESTED A T [address] (BEAKER) (test code [address], = 1538) [place] [address]: Diving Board Assembler/Techni adrian ID = [id number] for Garrett h, Nilam POCT-GLUCOSE [id number] 08:47:00 Test Item Value Reference Range Interpretation Comments POC-GLUCOSE METER 253 mg/dL 70-110 H : TESTED A T [address] (BEAKER) (test code [address], = 1538) [place] [address]: Diving Board Assembler/Techni adrian ID = [id number] for La Rose ins, Nury Urine qvgrwve4554-92-16 08:39:00 Test Item Value Reference Range Interpretation Comments Result (test code = 6463-4) [facility] pgtgqsq6862[facility]-06 08:39:00 Test Item Value Reference Range Interpretation Comments Result (test code = 6463-4) No growth [facility] METABOLIC [id number] 06:09:00 Test Item Value Reference Range Interpretation [...] S NOT APPLICABLE FOR DIALYSIS PATIEN TS. Diving Board Assembler ID - LITOOperator ID - LITOOperator ID - LITOOperator ID - LITOOperator ID - LITOOperator ID - LITOOperator ID - LITOOperator ID - LITOOperator ID - LITOOperator ID - LITOOperator ID - LITOOperator ID - LITOOperator ID - LITOCBC W/PLT COUNT & AUTO [id number] 05:40:00 Test Item Value Reference Range Interpretation [...] PERCENT (BEAKER) (test code = 2801) POCT-GLUCOSE [id number] 21:41:00 Test Item Value Reference Range Interpretation Comments POC-GLUCOSE METER 270 mg/dL 70-110 H : TESTED A T [address] (BEAKER) (test code [facility], = 1538) [facility] [address]: Diving Board Assembler/Techni adrian ID = [id number] for Lorenza Castanon VANCOMYCIN LEVEL, [id number] 20:39:00 Test Item Value Reference Range Interpretation Comments VANCOMYCIN TROUGH (BEAKER) (test 6.1 ug/mL 10.0-20.0 L code = 522) Diving Board Assembler ID - [id number] [id number] 17:05:00 Test Item Value Reference Range Interpretation Comments POC-GLUCOSE METER 295 mg/dL 70-110 H : Notified RN/MD: TESTED (BEAKER) (test code AT [address] = 1538) [place], [facility] [address]: Diving Board Assembler/Techni adrian ID = [id number] for Evan Husain CT, [id number] 15:49:00Unlisted Reason for Exam - Click Yes and Enter Reason Below->YesConcern for groin abscessUnlistedReason for Exam->Concern for right groin \\T\\ perineal abscess vs nec fascWill this procedure require oral contrast?->NoLOS GATOS CAMPUSName: LINDA ROSENTHAL : 1970 Sex: MFINAL REPORT [...] infiltration of the liver. Signed: Dennis Huerta MDRepwestern missouri medical center Verified Date/Time: 08/15/2020 15:49:43 Reading Location: [facility] Diagnostic Imaging Reading Room - [place] [address] POCT-GLUCOSE [id number] 11:18:00 Test Item Value Reference Range Interpretation Comments POC-GLUCOSE METER 288 mg/dL 70-110 H : Notified RN/MD: TESTED ([facility]) (test code AT [address] = 1538) [place] [address]: Diving Board Assembler/Techni adrian ID = [id number] for Evan Husain POCT-GLUCOSE [id number] 07:33:00 Test Item Value Reference Range Interpretation Comments POC-GLUCOSE METER 295 mg/dL 70-110 H : Notified RN/MD: TESTED ([facility]) (test code AT [facility] [address] [place] [address] = 1538) [place] [address]: Diving Board Assembler/Techni adrian ID = [id number] for Evan Husain BASIC METABOLIC [id number] 05:52:00 Test Item Value Reference Range Interpretation [...] S NOT APPLICABLE FOR DIALYSIS PATIEN TS. Diving Board Assembler ID - LITOOperator ID - LITOOperator ID - LITOOperator ID - LITOOperator ID - LITOOperator ID - LITOOperator ID - LITOOperator ID - LITOOperator ID - LITOOperator ID - LITOOperator ID - LITOOperator ID - LITOCBC W/PLT COUNT & AUTO [id number] 05:19:00 Test Item Value Reference Range Interpretation [...] PERCENT (BEAKER) (test code = 2801) POCT-GLUCOSE [id number] 21:11:00 Test Item Value Reference Range Interpretation Comments POC-GLUCOSE METER 279 mg/dL 70-110 H : TESTED A T [facility] [address] (BEAKER) (test code [facility] [address], = 1538) [facility] [address]: Diving Board Assembler/Techni adrian ID = [id number] for Darlingjesus singhnishaamanda SARS-CoV2/RT-PCR (Asymptomatic ONLY)2020-08-14 18:18:00 Test Item Value Reference Range Interpretation Comments SARS-COV2/RT-PCR Negative Not Detected, Performanc e of the Xpert (test code = Negative, See Xpress 65437-5) external report SARS-CoV-2/F andrea/RSV test for linked [...] an EUA for use by authoriz ed [employer]. T his test is only authori zed [...] Fact Sh eet for Healthcare Prov iders: https://www.[employer].Source MDx/ Documents/Xpert %20Xpress %70TGRI-KvJ-3-F andrea-RSV/30 2-4508%20Rev.%2 0B%20HCP% 20Fact%20Sheet. pdf Fact Sheet for Healt hcare Patients: https://www.[employer].Source MDx/ Documents/Xpert %20Xpress %13IWZT-PoE-6-F andrea-RSV/30 2-4507%20Rev.%2 0B%20Pati ent%20Fact%20Sh eet.pdf SARS-COV-2 SLSL Performed at:[facility] PERFORMING LAB [address] (test code = [place] [address] [address]) [place] [address] ph: [phone] [facility] (Asymptomatic ONLY)2020-08-14 18:18:00 Test Item Value Reference Range Interpretation Comments SARS-COV2/RT-PCR Negative Not Detected, Performanc e of the Xpert (test code = Negative, See Xpress 76962-0) external report SARS-CoV-2/F andrea/RSV test for linked [...] Fact Sh eet for Healthcare Prov iders: https://www.[employer].Source MDx/ Documents/Xpert %20Xpress %09CPOR-XaT-4-F andrea-RSV/30 2-4508%20Rev.%2 0B%20HCP% 20Fact%20Sheet. pdf Fact Sheet for Healt hcare Patients: https://www.[employer].Source MDx/ Documents/Xpert %20Xpress %47WIPI-NyZ-5-F andrea-RSV/30 2-4507%20Rev.%2 0B%20Pati ent%20Fact%20Sh eet.pdf SARS-COV-2 SLSL Performed at:[facility] LAB [facility] (test code = [place] [address] [address]) [place] [address] ph: [phone] [facility]ARS-[facility]OV2/[facility]-PCR ([facility])2020-08-14 18:18:00 Test Item Value Reference Range Interpretation Comments SARS-COV2/RT-PCR Negative Not Detected, Performanc e of the Xpert (test code = Negative, See Xpress 2522771) external report SARS-CoV-2/F andrea/RSV test for linked [...] sooner.Fact She et for Healthcare Prov iders: https://www.Path/ Documents/Xpert %20Xpress %03JLMV-KcY-9-F andrea-RSV/30 2-4508%20Rev.%2 0B%20HCP% 20Fact%20Sheet. pdfFact Sheet for Healt hcare Patients: https://www.Path/ Documents/Xpert %20Xpress %77KRGF-JoY-8-F andrea-RSV/30 2-4507%20Rev.%2 0B%20Pati ent%20Fact%20Sh eet.pdf SARS-COV-2 SLSL Performed at:[facility] PERFORMING LAB [facility]1317 (test code = [facility] 6241599) [place], [place] [address]f h: [phone] POCT-GLUCOSE [id number] 16:54:00 Test Item Value Reference Range Interpretation Comments POC-GLUCOSE METER 261 mg/dL 70-110 H : Notified RN/MD: TESTED ([facility]) (test code AT [address] = 1538) [place] [address]: Diving Board Assembler/Techni adrian ID = [id number] for Thak er, Nikitaben POCT-GLUCOSE [id number] 11:22:00 Test Item Value Reference Range Interpretation Comments POC-GLUCOSE METER 337 mg/dL 70-110 H : Notified RN/MD: [facility]ED [facility] (test code AT [facility] [address] [place] [address] = 1538) [place] [address]: Diving Board Assembler/Techni adrian ID = [id number] for Thak er, Nikitaben U/S, TESTICULAR (SCROTUM)2020-08-14 09:17:00Reason for exam:->Swelling, pain, erythema of the right scrotum [facility] 1970 Sex: MFINAL [...] [facility] Radiology Reading Room POCT-GLUCOSE [id number] 07:33:00 Test Item Value Reference Range Interpretation Comments POC-GLUCOSE METER 404 mg/dL 70-110 HH : Notified RN/MD: TESTED ([facility]) (test code AT [facility] [address] = 1538) [place] [facility] [address]: Diving Board Assembler/Techni adrian ID = [id number] for Evan Husain Urinalysis w/Microscopic + Reflex to [id number] 07:32:00 Test Item Value Reference Range Interpretation Comments Color, UA (test code Yellow = 5778-6) Clarity, UA (test Slightly Cloudy code = 5767-9) Specific [place], UA 1.020 1.001-1.035 (test code = 5811-5) pH, UA (test code = 6.0 5.0-8.0 5803-2) Protein, UA (test Negative Negative code = 11857-7) Glucose, UA (test >=1000 mg/dL Negative A code = 365) Ketones, UA (test 15 mg/dL Negative A code = 2514-8) Bilirubin, UA (test Negative Negative code = 41339-0) Blood, UA (test code Trace Negative A = 27362-0) Nitrite, UA (test Negative Negative code = 5802-4) Leukocytes, UA (test Negative Negative code = 5799-2) Urobilinogen, UA 0.2 mg/dL 0.2-1.0 (test code = 05875-2) Bacteria, UA (test Rare code = 89575-6) RBC, UA (test code = 5-10 See_Comment [Autom ated 799-7) message] The system which generated this result transmit odalys reference range : /HPF. The reference range was not used to interpret this result as normal/abnormal . WBC, UA (test code = 20-50 See_Comment [Autom ated 66055-9) message] The system which generated this result transmit odalys reference range : /HPF. The reference range was not used to interpret this result as normal/abnormal . SQUAMOUS EPITHELIAL <5 See_Comment [Automa odalys (test code = 68792-1) messag e] The system which generated this result transmit odalys reference range : /HPF. The reference range was not used to interpret this result as normal/abnormal . Specimen Source (test code = 2795) Lab Interpretation Abnormal (test code = 17228-8) [facility] w/Microscopic + Reflex to Culture 2020-08-14 07:32:00 Test Item Value Reference Range Interpretation Comments Color, UA (test code Yellow = 5778-6) Clarity, UA (test Slightly Cloudy code = 5767-9) Specific [place], UA 1.020 1.001-1.035 (test code = 5811-5) pH, UA (test code = 6.0 5.0-8.0 5803-2) Protein, UA (test Negative Negative code = 06296-3) Glucose, UA (test >=1000 mg/dL Negative A code = 365) Ketones, UA (test 15 mg/dL Negative A code = 2514-8) Bilirubin, UA (test Negative Negative code = 13214-4) Blood, UA (test code Trace Negative A = 79153-4) Nitrite, UA (test Negative Negative code = 5802-4) Leukocytes, UA (test Negative Negative code = 5799-2) Urobilinogen, UA 0.2 mg/dL 0.2-1.0 (test code = 54610-1) Bacteria, UA (test Rare code = 21329-1) RBC, UA (test code = 5-10 See_Comment [Autom ated 799-7) message] The system which generated this result transmit odalys reference range : /HPF. The reference range was not used to interpret this result as normal/abnormal . WBC, UA (test code = 20-50 See_Comment [Autom ated 26842-7) message] The system which generated this result transmit odalys reference range : /HPF. The reference range was not used to interpret this result as normal/abnormal . SQUAMOUS EPITHELIAL <5 See_Comment [Automa odalys (test code = 27347-9) messag e] The system which generated this result transmit odalys reference range : /HPF. The reference range was not used to interpret this result as normal/abnormal . Specimen Source (test code = 2795) Lab Interpretation Abnormal (test code = 68662-6) [facility]/ REFLEX URINE [id number] 07:32:00 Test Item Value Reference Range Interpretation [...] 1663) SOURCE(BEAKER) (test code = 2795) Hemoglobin [id number] 06:51:00 Test Item Value Reference Range Interpretation Comments Hemoglobin A1C (test code 14.0 % 4.3-6.1 H = 4548-4) ЕЛЕНА (test code = ЕЛЕНА) Diving Board Assembler ID - [id number] Lab Interpretation (test Abnormal code = 51194-7) [facility] HospitalHemoglobin [id number] 06:51:00 Test Item Value Reference Range Interpretation Comments Hemoglobin A1C (test code 14.0 % 4.3-6.1 H = 4548-4) ЕЛЕНА (test code = ЕЛЕНА) Diving Board Assembler ID - [id number] Lab Interpretation (test Abnormal code = 15531-4) [facility] HospitalHEMOGLOBIN [id number] 06:51:00 Test Item Value Reference Range Interpretation Comments HEMOGLOBIN A1C (BEAKER) (test code = 14.0 % 4.3-6.1 H 368) Diving Board Assembler ID - [id number] METABOLIC [id number] 06:31:00 Test Item Value Reference Range Interpretation [...] S NOT APPLICABLE FOR DIALYSIS PATIEN TS. Diving Board Assembler ID - [id number] ID - JPTZ73Ljuthwqs ID - EAJO93Vtovopiu ID - USNL88Rtorpnly ID - APCG64Mgmlmaop ID - VMYH55Gfguonks ID - GTJK83Nvyybujn ID - VUUF39Wqmmmbja ID - GCAB79Rmuitnyq ID - TKYW05KWVBOJWBD0233-28-26 06:29:00 Test Item Value Reference Range Interpretation Comments MAGNESIUM (BEAKER) (test code = 1.7 mg/dL 1.5-3.0 627) Diving Board Assembler ID - [id number] ID - [id number] ID - ZAFN47Indkivjn ID - [id number] Dnfxpoqyus7662-79-58 06:26:00 Test Item Value Reference Range Interpretation Comments Phosphorus (test code = 3.3 mg/dL 2.5-4.5 2777-1) ЕЛЕНА (test code = ЕЛЕНА) Diving Board Assembler ID - [id number] Lab Interpretation (test Normal code = 49577-8) [facility]osph[facility]2021-06-28 06:26:00 Test Item Value Reference Range Interpretation Comments Phosphorus (test code = 3.3 mg/dL 2.5-4.5 2777-1) ЕЛЕНА (test code = ЕЛЕНА) Diving Board Assembler ID - [id number] Lab Interpretation (test Normal code = 55692-9) [facility]PHOSPHORUS2021-06-28 06:26:00 Test Item Value Reference Range Interpretation Comments PHOSPHORUS (BEAKER) (test code = 3.3 mg/dL 2.5-4.5 604) Diving Board Assembler ID - [id number] time/[id number] 06:24:00 Test Item Value Reference Interpretation Comments [...] valves. Lab Interpretation Normal (test code = 12262-2) [facility] HospitalProthrombin time/[id number] 06:24:00 Test Item Value Reference Interpretation Comments [...] valves. Lab Interpretation Normal (test code = 96175-2) [facility] HospitalPROTHROMBIN TIME/[id number] 06:24:00 Test Item Value Reference Range Interpretation Comments PROTIME (BEAKER) 10.8 seconds 9.3-12.0 Final Infor mation (test code = 759) (Auto Outp ut) INR (BEAKER) (test 0.97 See_Comment Final Inf ormation code = 370) (Auto Output) [Automated mess age] The system Document [employer] generated this result transmitted ref erence range: <=5.90. The reference range was not used to int erpret this result as normal/abnormal . RECOMMENDED COUMADIN/WARFARIN INR THERAPY RANGESSTANDARD DOSE: 2.0 - 3.0 Includes: PROPHYLAXIS for venous thrombosis, systemic embolization; TREATMENT for venous thrombosis and/or pulmonary embolus.HIGH RISK: Target INR is 2.5-3.5 for patients with mechanical heart valves.CBC W/PLT COUNT & AUTO [id number] 06:16:00 Test Item Value Reference Range Interpretation [...] PERCENT (BEAKER) (test code = 2801) POCT-GLUCOSE [id number] 04:21:00 Test Item Value Reference Range Interpretation Comments POC-GLUCOSE METER 332 mg/dL 70-110 H : TESTED A T [facility] [address]17 (BEAKER) (test code [facility] [address], = 1538) [facility] [address]: Diving Board Assembler/Techni adrian ID = [id number] for Francesca Lassiter Lipid Panel w/ Chol/HDL [id number] 00:00:00 Test Item Value Reference Range Interpretation Comments Cholesterol, Total (test code = 2093-3) 135 100-199 Triglycerides (test code = 2571-8) 488 0-149 HDL Cholesterol (test code = 2085-9) 33 >39 T. Chol/HDL Ratio (test code = 9830-1) 4.1 0.0-5.0 Urinalysis, [id number] 00:00:00 Test Item Value Reference Range Interpretation Comments Specific [place] (test code = >=1.030 1.005-1.030 2965-2) pH (test code = 5803-2) 6.0 5.0-7.5 Urine-Color (test code = 5778-6) Yellow Yellow Appearance (test code = 5767-9) Clear Clear WBC Esterase (test code = 5799-2) Negative Negative Protein (test code = 46028-6) 2+ Negative/Trace Glucose (test code = 2349-9) 3+ Negative Ketones (test code = 8934-8) Trace Negative Occult Blood (test code = 5794-3) Negative Negative Bilirubin (test code = 5770-3) Negative Negative Urobilinogen,Semi-Qn (test code = 0.2 0.2-1.0 ) Nitrite, Urine (test code = Negative Negative 5802-4) Microscopic Examination (test code See below: = 58243-0) Microalbumin/Creat Ratio, Random [id number] 00:00:00 Test Item Value Reference Range Interpretation Comments Creatinine, Urine (test code = 2161-8) 88.2 Not Estab. Albumin, Urine (test code = 97219-0) 264.6 Not Estab. Alb/Creat Ratio (test code = 12435-1) 300 0-29 Hemoglobin [id number] 00:00:00 Test Item Value Reference Range Interpretation Comments Hemoglobin A1c (test code = 4548-4) 12.9 4.8-5.6 Comp. Metabolic Panel (14) ([facility])2020-08-04 00:00:00 Test Item Value Reference Range Interpretation Comments Glucose (test code = 2345-7) 388 65-99 BUN (test code = 3094-0) 13 6-24 Creatinine (test code = 2160-0) 0.92 0.76-1.27 eGFR If NonAfricn Am (test code = 98 >59 46810-2) eGFR If Africn Am (test code = 02108-5) 113 >59 BUN/Creatinine Ratio (test code = 14 11-06 3097-3) Sodium (test code = 2951-2) 136 134-144 Potassium (test code = 2823-3) 5.3 3.5-5.2 Chloride (test code = 2075-0) 93 96-106 Carbon Dioxide, Total (test code = 24 -2027-10) Calcium (test code = 75958-9) 11.0 8.7-10.2 Protein, Total (test code = 2885-2) 8.3 6.0-8.5 Albumin (test code = 1751-7) 4.8 4.0-5.0 Globulin, Total (test code = 24769-6) 3.5 1.5-4.5 A/G Ratio (test code = 175-0) 1.4 1.2-2.2 Bilirubin, Total (test code = 1974-) 0.3 0.0-1.2 Alkaline Phosphatase (test code = 85 48-121 6768-6) AST (SGOT) (test code = 1920-8) 49 0-40 ALT (SGPT) (test code = 1742-6) 63 0-44 CBC With Differential/Lepzuvcg8609-29-98 00:00:00 Test Item Value Reference Range Interpretation [...] Granulocytes (test code = 3 Not Estab. 84327-5) Immature Grans (Abs) (test code = 0.3 0.0-0.1 93525-8) NRBC (test code = 13173-9) Hematology Comments: (test code = 47428-1) BASIC METABOLIC PANEL (NA, K, CL, CO2, GLUCOSE, BUN, CREATININE, CA)2020-03-19 05:46:00 Test Item Value Reference Range Interpretation Comments NA (test code = 140 mmol/L 135-145 4077713575) K (test code = 4.0 mmol/L 3.5-5 7703893398) CL (test code = 104 mmol/L 98-108 9093144333) CO2 TOTAL (test code = 24 mmol/L 23-31 9236890172) AGAP (test code = 2-16 5032486148) BUN (test code = 23 mg/dL 7-23 0767105036) GLUCOSE (test code = 114 mg/dL 70-110 H 2607139785) CREATININE (test code = 1.09 mg/dL 0.6-1.25 4420505336) CALCIUM (test code = 9.4 mg/dL 8.6-10.6 4195871015) eGFR Calculation mL/min/1.73m2 (Non-) (test code = 9939260899) eGFR Calculation mL/min/1.73m2 () (test code = 8276421724) ЕЛЕНА (test code = ЕЛЕНА) Association of [...] tests). Lab Interpretation Abnormal (test code = 81584-7) [facility] Test Item Value Reference Range Interpretation Comments APPEARANCE (test code = Cloudy Clear A 0031066216) COLOR (test code = [place] Yellow A 4155565434) PH (test code = 4.8-8.0 7714967195) SP GRAVITY (test code = 1.003-1.030 3551401463) GLU U QUAL (test code = Normal Normal 2868288229) BLOOD (test code = 1+ Negative A 8413536383) KETONES (test code = 20 mg/dL Negative A 8687411323) PROTEIN (test code = 500 mg/dL Negative A 2887-8) UROBILIN (test code = 4.0 mg/dL Normal A 5914121247) BILIRUBIN (test code = 2 mg/dL Negative A 6316240710) NITRITE (test code = Negative Negative 0512644482) LEUK BRIDGET (test code = Negative Negative 7095278440) RBC/HPF (test code = See_Comment [Autom ated message] 3570706332) The system Document Agility generated this result transmit odalys reference range : 0 - 3 HPF. The refe rence range was not u sed to interpret th is result as normal/abnormal . WBC/HPF (test code = See_Comment H [Autom ated message] 6761865263) The system Document [employer] generated this result transmit odlays reference range : 0 - 5 HPF. The refe rence range was not u sed to interpret th is result as normal/abnormal . BACTERIA (test code = Few Negative A 6750309376) MUCOUS (test code = Marked Negative LPF A 9491265811) SQ EPITH (test code = HPF 1528478403) HYAL CAST (test code = See_Comment H [Aut omated message] 3649764231) The system Document [employer]ility generated this result transmit odalys reference range : <=2 LPF. The refere nce range was not u sed to interpret th is result as normal/abnormal . Lab Interpretation (test Abnormal code = 78947-2) [facility] [id number] 03:32:00 Test Item Value Reference Range Interpretation Comments PH (test code = 7.32-7.42 7468749043) PCO2 LOUIS (test code = See_Comment L [Auto mated 7280790738) message] The sy stem which generated this result transmitted reference range : 41 - 51 mmHg. The reference range was not used to interpret this result as normal/abnormal . PO2 LOUIS (test code = See_Comment [Autom ated 0900867493) message] The sy stem which generated this result transmitted reference range : 25 - 40 mmHg. The reference range was not used to interpret this result as normal/abnormal . HCO3 LOUIS (test code = See_Comment L [Auto mated 3270833219) message] The sy stem which generated this result transmitted reference range : 24 - 28 mEq/L. The reference range was not used to interpret this result as normal/abnormal . AC VBE(BEAKER) (test mEq/L code = 4433928269) LACTIC ACID (test code 1.72 mmol/L 0.5-2.2 = 7455259942) Lab Interpretation Abnormal (test code = 24086-9) [facility]. METABOLIC PANEL (13947)2020-03-19 01:51:00 Test Item Value Reference Range Interpretation Comments NA (test code = 141 mmol/L 135-145 1685846809) K (test code = 4.1 mmol/L 3.5-5 3032927039) CL (test code = 102 mmol/L 98-108 4489459682) CO2 TOTAL (test code = 21 mmol/L 23-31 L 5968285252) AGAP (test code = 2-16 H 7472476715) BUN (test code = 25 mg/dL 7-23 H 4342148782) GLUCOSE (test code = 160 mg/dL 70-110 H 2770081795) CREATININE (test code = 1.12 mg/dL 0.6-1.25 5745085831) TOTAL BILI (test code = 1.1 mg/dL 0.1-1.3 1766984676) CALCIUM (test code = 10.6 mg/dL 8.6-10.6 7461887626) T PROTEIN (test code = 9.4 g/dL 6.3-8.2 H 1754679378) ALBUMIN (test code = 5.1 g/dL 3.5-5 H 2018371970) ALK PHOS (test code = 108 U/L 34-122 2126297029) ALTv (test code = 121 U/L 5-50 H 1742-6) AST(SGOT) (test code = 99 U/L 13-40 H 2136628567) eGFR Calculation mL/min/1.73m2 (Non-) (test code = 6225424546) eGFR Calculation mL/min/1.73m2 () (test code = 2102903572) ЕЛЕНА (test code = ЕЛЕНА) Association of [...] tests). Lab Interpretation Abnormal (test code = 19272-7) [facility] Test Item Value Reference Range Interpretation Comments LIPASE (test code = 3893807119) 66 U/L 0-220 Lab Interpretation (test code = Normal 90589-7) [facility] 01:51:00 Test Item Value Reference Range Interpretation Comments MAGNESIUM (test code = 5868673148) 1.8 mg/dL 1.7-2.4 Lab Interpretation (test code = Normal 86074-3) [facility] WITH [id number] 01:38:00 Test Item Value Reference Range Interpretation [...] RDW-SD (test code = 41.2 fL 38.5-51.6 52227-2) RDW-CV (test code = 13.2 % 12.1-15.4 788-0) PLT (test code = See_Comment H [Automated 777-3) message] The sy stem which generated this result transmitted reference range : 150 - 328 10*3/ ?L. The reference r cj was not used to interpret this result as normal/abnormal . MPV (test code = 9.5 fL 9.8-13 L 58782-1) NRBC/100 WBC (test See_Comment [Automat ed code = 2940077328) message] The system which generated this result transmitted reference range : 0.0 - 10.0 /100 WBCs. The refer ence range was not u sed to interpret th is result as normal/abnormal . NRBC x10^3 (test code <0.01 See_Comment [Auto mated = 2447216627) message] The s ystem which generated this result transmitted reference range : 10*3/?L. The reference range was not used to interpret this result as normal/abnormal . GRAN MAT (NEUT) % 46.0 % (test code = 770-8) IMM GRAN % (test code 3.50 % = 6349340468) LYMPH % (test code = 37.9 % 736-9) MONO % (test code = 9.5 % 5905-5) EOS % (test code = 2.3 % 713-8) BASO % (test code = 0.8 % 706-2) GRAN MAT x10^3(ANC) 3.38 10*3/uL 1.99-6.95 (test code = 0696496342) IMM GRAN x10^3 (test 0.26 10*3/uL 0-0.06 H code = 1122822506) LYMPH x10^3 (test code 2.79 10*3/uL 1.09-3.23 = 731-0) MONO x10^3 (test code 0.70 10*3/uL 0.36-1.02 = 742-7) EOS x10^3 (test code = 0.17 10*3/uL 0.06-0.53 711-2) BASO x10^3 (test code 0.06 10*3/uL 0.01-0.09 = 704-7) Lab Interpretation Abnormal (test code = 59374-2) [facility] 1 [id number] 01:31:03No acute cardiopulmonary disease RL: 6200 AFC: 64735 End of report ORDERING CLINICIAN: STEFANY GUERRERO [...] contour is normal.IMPRESSIONNo acute cardiopulmonary diseaseRL: 6200AF: 02259Pox of report [facility],CLC OR [facility] ONLY - INFLUENZA A & B DIRECT [id number] 01:15:00 Test Item Value Reference Range Interpretation Comments Influenza A (test code = 45152-8) Negative Negative Influenza B (test code = 67491-6) Negative Negative Lab Interpretation (test code = Normal 12146-3) [facility]:00 Test Item Value Reference Range Interpretation Comments APPEARANCE (test code = Hazy Clear A 2068863500) COLOR (test code = Gricelda Yellow A 7681826834) PH (test code = 4.8-8.0 5599413591) SP GRAVITY (test code = 1.003-1.030 9411714617) GLU U QUAL (test code = Normal Normal 3222987604) BLOOD (test code = 2+ Negative A 6430521095) KETONES (test code = Negative Negative 8012380878) PROTEIN (test code = 500 mg/dL Negative A 2887-8) UROBILIN (test code = Normal Normal 6093106107) BILIRUBIN (test code = Negative Negative 1503978515) NITRITE (test code = Negative Negative 2095665543) LEUK BRIDGET (test code = Negative Negative 1964761224) RBC/HPF (test code = See_Comment H [Autom ated message] 4434032138) The system Document Agility generated this result transmit odalys reference range : 0 - 3 HPF. The refe rence range was not u sed to interpret th is result as normal/abnormal . WBC/HPF (test code = See_Comment [Autom ated message] 0839989679) The system Document Agility generated this result transmit odalys reference range : 0 - 5 HPF. The refe rence range was not u sed to interpret th is result as normal/abnormal . BACTERIA (test code = Few Negative A 5914236805) MUCOUS (test code = Slight Negative LPF A 0441080744) Lab Interpretation (test Abnormal code = 41047-6) [facility] Metabolic Panel (NA, K, CL, CO2, GLUCOSE, BUN, CREATININE, CA)2020-03-13 00:49:00 Test Item Value Reference Range Interpretation Comments NA (test code = 135 mmol/L 135-145 6775686293) K (test code = 4.0 mmol/L 3.5-5 1092240649) CL (test code = 97 mmol/L 98-108 L 3150622263) CO2 TOTAL (test code = 24 mmol/L 23-31 9023336664) AGAP (test code = 2-16 2885674050) BUN (test code = 21 mg/dL 7-23 1489596889) GLUCOSE (test code = 206 mg/dL 70-110 H 5356924265) CREATININE (test code = 1.12 mg/dL 0.6-1.25 6935695152) CALCIUM (test code = 9.8 mg/dL 8.6-10.6 6195980676) eGFR Calculation mL/min/1.73m2 (Non-) (test code = 8917834775) eGFR Calculation mL/min/1.73m2 () (test code = 8005596680) ЕЛЕНА (test code = ЕЛЕНА) Association of [...] tests). Lab Interpretation Abnormal (test code = 46492-3) [facility] NOW RAPID TESTING)2020-03-13 00:49:00 Test Item Value Reference Range Interpretation Comments SARS-CoV-2 Rapid ID NOW Positive Not Detected A (test code = 63122-7) ЕЛЕНА (test code = ЕЛЕНА) ID NOW COVID-19 Assay is an isothermal nucleic acid amplification test intended for the qualitative detection of nucleic acid from SARS-CoV-2 viral RNA in nasopharyngeal ([employer]OURNEY[employer]) specimens. It is used under Emergency Use [...] indicated. Lab Interpretation Abnormal (test code = 31983-5) [facility] (ALB, T.PRO, BILI T, BU/BC, ALT, AST, ALK PHOS)2020-03-13 00:43:00 Test Item Value Reference Range Interpretation Comments TOTAL BILI (test code = 5973830121) 0.8 mg/dL 0.1-1.1 BILI UNCON (test code = 4726723106) 0.6 mg/dL 0.1-1.1 BILI CONJ (test code = 8728640107) 0.0 mg/dL 0-0.3 T PROTEIN (test code = 8365666419) 8.9 g/dL 6.3-8.2 H ALBUMIN (test code = 7952473015) 4.8 g/dL 3.5-5 ALK PHOS (test code = 5025379515) 82 U/L 34-122 ALTv (test code = 1742-6) 138 U/L 5-50 H AST(SGOT) (test code = 7895016498) 139 U/L 13-40 H Lab Interpretation (test code = Abnormal 09992-8) [facility] [id number] 00:42:00 Test Item Value Reference Range Interpretation Comments LIPASE (test code = 3861304712) 46 U/L 0-220 Lab Interpretation (test code = Normal 34626-1) [facility] with [id number] 00:26:00 Test Item Value Reference Range Interpretation Comments WBC (test code = See_Comment [Automated 1090-2) message] The sy stem which generated this result transmitted reference range : 4.20 - 10.70 10*3/?L. The reference range was not used to interpret this result as normal/abnormal . RBC (test code = See_Comment [Automated 149-8) message] The sy stem which generated this [...] RDW-SD (test code = 42.4 fL 38.5-51.6 69478-6) RDW-CV (test code = 13.3 % 12.1-15.4 788-0) PLT (test code = See_Comment H [Automated 347-3) message] The sy stem which generated this result transmitted reference range : 150 - 328 10*3/ ?L. The reference r cj was not used to interpret this result as normal/abnormal . MPV (test code = 10.0 fL 9.8-13 94769-5) NRBC/100 WBC (test See_Comment [Automat ed code = 4447505545) message] The system which generated this result transmitted reference range : 0.0 - 10.0 /100 WBCs. The refer ence range was not u sed to interpret th is result as normal/abnormal . NRBC x10^3 (test code <0.01 See_Comment [Auto mated = 8991094463) message] The s ystem which generated this result transmitted reference range : 10*3/?L. The reference range was not used to interpret this result as normal/abnormal . GRAN MAT (NEUT) % 55.8 % (test code = 770-8) IMM GRAN % (test code 1.80 % = 8235012020) LYMPH % (test code = 33.1 % 736-9) MONO % (test code = 8.5 % 5905-5) EOS % (test code = 0.3 % 713-8) BASO % (test code = 0.5 % 706-2) GRAN MAT x10^3(ANC) 4.12 10*3/uL 1.99-6.95 (test code = 4318173358) IMM GRAN x10^3 (test 0.13 10*3/uL 0-0.06 H code = 8934998460) LYMPH x10^3 (test code 2.44 10*3/uL 1.09-3.23 = 731-0) MONO x10^3 (test code 0.63 10*3/uL 0.36-1.02 = 742-7) EOS x10^3 (test code = <0.03 0.06-0.53 L 711-2) BASO x10^3 (test code 0.04 10*3/uL 0.01-0.09 = 704-7) Lab Interpretation Abnormal (test code = 60690-9) [facility]
[2023-01-02] MEDS ORDERED: DIAZEPAM 5 MG TABLET ONE (22:32)
[2023-01-02] MEDS ORDERED: ONDANSETRON 4 MG/2 ML VIAL ONE (22:33)
[2023-01-02] MEDS ORDERED: MORPHINE 4 MG/ML SYR ONE (22:33)
[2023-01-02] MEDS ORDERED: ASPIRIN EC 81 MG TAB PO ONE (22:34)
[2023-01-02] MEDS ORDERED: ASPIRIN 81 MG CHEWABLE TABLET ONE (22:34)
--- NOTE | 2023-01-02 22:44 | RAD REPORT ---
EXAM DESCRIPTION: RADChest Single View01/02/2023 10:20 pm CLINICAL HISTORY: CHEST PAIN COMPARISON: Chest Single View dated 12/02/2022; Chest Single View dated 09/07/2022; Chest Single View dated 08/19/2022; Chest Single View dated 08/25/2021 TECHNIQUE: Portable AP view of the chest. FINDINGS: The lungs are clear. Decreased inspiratory effort limits evaluation. No pneumothorax or ef fusion. The cardiomediastinal contours are unremarkable. IMPRESSION: No acute cardiopulmonary process.
[2023-01-02 22:49] LABS: Absolute Lymphocytes (CBC) 3.3 K/uL (0.7-4.9); Hematocrit 35.8 % (39.6-49.0); Lymphocytes % 49.4 % (15.3-44.8); MCV 83.6 fL (80-100); MPV 8.3 fL (7.6-11.3); Platelets 336 thou/uL (152-406); Protime INR 0.99; RBC Red Blood Cell Count 4.28 M/uL (4.33-5.43)
[2023-01-02 23:26] LABS: Albumin 3.7 g/dL (3.4-5.0); Bilirubin Direct 0.1 mg/dL (0-0.2); Bilirubin Indirect, Calculated 0.3 mg/dL (0.2-0.8); Bilirubin Total 0.4 mg/dL (0.2-1.0); Magnesium 1.9 mg/dL (1.6-2.4); Potassium 3.3 mEq/L (3.5-5.1); Protein, Total 7.2 g/dL (6.4-8.2); Troponin High Sensitivity 22.5 pg/mL (<58.9)
--- NOTE | 2023-01-03 00:25 | ER ---
Nurse's Notes 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 DENIES SOB. Coronavirus screen: At this time, the client does not indicate any symptoms associated with coronavirus-19. Ebola Screen: No symptoms or risks identified at this time. Initial Sepsis Screen: Does the patient meet any 2 criteria? No. Patient's initial sepsis screen is negative. Does the patient have a suspected source of infection? No. Patient's initial sepsis screen is negative. Risk Assessment: Do you want to hurt yourself or someone else? Patient reports no desire to harm self or others. 22:01 Method Of Arrival: Ambulatory rv 22:01 Acuity: DIANNA 2 rv 22:01 Onset of symptoms was January 02, 2023. rv Triage Assessment: 22:02 General: Appears uncomfortable, Behavior is calm, cooperative. Pain: Complains of pain rv in chest. Neuro: Level of Consciousness is awake, alert, obeys commands, Oriented to person, place, time, situation. Cardiovascular: Capillary refill Patient's skin is warm and dry. Cardiovascular: Chest pain began 1 hour prior to arrival. Respiratory: Airway is patent Respiratory effort is even, unlabored. GI: No signs and/or symptoms were reported involving the gastrointestinal system. : No signs and/or symptoms were reported regarding the genitourinary system. Derm: Skin is intact. Historical: - PMHx: 22:02 Arthritis; Diabetes - NIDDM; GERD; High Cholesterol; Hypertension; osteoarthritis; rv - PSHx: 22:02 Left hip replacement (rt); RECTAL ABSCESS (rt); rv - Immunization history:: Adult Immunizations up to date. - Social history:: Smoking status: unknown. - Family history:: not pertinent. Screenin:48 [facility] ED Fall Risk Assessment (Adult) History of falling in the last 3 months, jj7 including since admission No falls in past 3 months (0 pts) Confusion or Disorientation No (0 pts) Intoxicated or Sedated Yes (3 pts) Impaired Gait No (0 pts) Mobility Assist Device Used No (0 pt) Altered Elimination No (0 pt) Score/Fall Risk Level 0 - 2 = Low Risk Oriented to surroundings, Maintained a safe environment. Abuse screen: Denies threats or abuse. Nutritional screening: No deficits noted. Tuberculosis screening: No symptoms or risk factors identified. Assessment: 22:52 Reassessment: SEE TRIAGE ASSESSMENT. j7 01/03 00:00 Reassessment: Patient appears in no apparent distress at this time. No changes from [facility] previously documented assessment. Patient and/or family updated on plan of care and expected duration. Pain level reassessed. Patient is alert, oriented x 3, equal unlabored respirations, skin warm/dry/pink. 01:26 Reassessment: Patient appears in no apparent distress at this time. Patient and/or jw7 family updated on plan of care and expected duration. Pain level reassessed. Patient is alert, oriented x 3, equal unlabored respirations, skin warm/dry/pink. Patient states symptoms have improved. 01:28 Pain: Pain does not radiate. Pain began suddenly. [facility] 02:00 Reassessment: Patient appears in no apparent distress at this time. No changes from [facility] previously documented assessment. Patient and/or family updated on plan of care and expected duration. Pain level reassessed. Patient is alert, oriented x 3, equal unlabored respirations, skin warm/dry/pink. Vital Signs: 01/02 22:01 BP 130 / 87; Pulse 102; Resp 20; Temp 98; Pulse Ox 100% ; Weight 113.4 kg; Height 5 ft. rv 11 in. ; 22:51 BP 140 / 63; Pulse 97; Resp 22; Pulse Ox 99% ; j7 01/03 00:00 BP 108 / 69; Pulse 96; Resp 17 S; Pulse Ox 98% on R/A; 7 01:00 BP 109 / 88; Pulse 103; Resp 17 S; Pulse Ox 98% on R/A; 7 01:49 BP 123 / 61; Pulse 95; Resp 17; Pulse Ox 96% ; [facility] 01/02 22:01 Body Mass Index 34.87 (113.40 kg, 180.34 cm) ED Course: 01/02 21:46 Patient arrived in ED. ag3 22:00 Sheldon Rees MD is Attending Physician. sp4 22:02 Triage completed. rv 22:03 Glenny Cuevas, SANA is Primary Nurse. jj7 22:03 Arm band placed on right wrist. rv 22:22 XRAY Chest (1 view) In Process Unspecified. EDMS 22:41 Inserted saline lock: 22 gauge in right forearm, using aseptic technique. Blood rv1 collected. 22:42 Basic Metabolic Panel Sent. rv1 22:42 CBC with Diff Sent. rv1 22:42 LFT's Sent. rv1 22:42 Magnesium Sent. rv1 22:42 NT PRO-BNP Sent. rv1 22:42 PT-INR Sent. rv1 22:42 Troponin HS Sent. rv1 22:48 Patient has correct armband on for positive identification. Bed in low position. Call j light in reach. Side rails up X2. Client placed on continuous cardiac and pulse oximetry monitoring. NIBP monitoring applied. monitoring and evaluation advisor on. Pulse ox on. Lights dimmed. Warm blanket given. 22:48 Basic Metabolic Panel Sent. jj7 22:48 CBC with Diff Sent. jj7 22:48 LFT's Sent. jj7 22:48 Magnesium Sent. jj7 22:48 NT PRO-BNP Sent. jj7 22:48 PT-INR Sent. jj7 22:48 Troponin HS Sent. jj7 22:48 Patient maintains SpO2 saturation greater than 95% on room air. [facility] 01/03 00:25 Asaf Leo MD is Hospitalizing Provider. sp4 01:00 Provided Education on: need for admit. 7 01:57 No provider procedures requiring assistance completed. Patient admitted, IV remains in j place. Administered Medications: 01/02 22:40 Drug: Diazepam PO 5 mg PO once Route: PO; [facility] 01/03 01:29 Follow up: Response: No adverse reaction [facility] 01/02 22:40 Drug: Aspirin PO Chewable Tablet 324 mg PO once; 81 mg tablets x 4 Route: PO; j 01/03 01:29 Follow up: Response: No adverse reaction [facility] 01/02 22:47 Drug: morphine IVP or IV 4 mg IVP once over 4 mins Route: IVP; Infused Over: 4 mins; jj7 Site: right forearm; 01/03 01:29 Follow up: Response: No adverse reaction jw7 01/02 22:47 Drug: Ondansetron IVP 4 mg IVP once; over 2 minutes Route: IVP; Site: right forearm; jj7 01/03 01:29 Follow up: Response: No adverse reaction jw7 01:03 Drug: morphine IVP or IV 2 mg IVP once over 4 mins Route: IVP; Infused Over: 4 mins; rv Site: right antecubital; 01:29 Follow up: Response: No adverse reaction; Marked relief of symptoms jw7 01:03 Drug: Zolpidem PO 5 mg PO once Route: PO; rv 01:30 Follow up: Response: No adverse reaction jw7 Medication: 01:58 VIS not applicable for this client. jj7 Outcome: 00:25 Decision to Hospitalize by Provider. sp4 01:57 Admitted to Med/surg accompanied by tech, via wheelchair, room 413, Report called to wandy RAM RN 01:57 Condition: improved 02:17 Patient left the ED. jw7 Signatures: Dispatcher [employer] EDMS Will Arias RN RN rv Sarah Ball Jodi, RN RN jw7 Johnson, Juwairiyah, RN RN jj7 Villegas, Rebecca rvSheldon Reyes MD MD sp4 Corrections: (The following items were deleted from the chart) 01:27 01:26 Reassessment: Patient appears in no apparent distress at this time. No changes jw7 from previously documented assessment. Patient and/or family updated on plan of care and expected duration. Pain level reassessed. Patient is alert, oriented x 3, equal unlabored respirations, skin warm/dry/pink. jw7
--- NOTE | 2023-01-03 00:25 | EDPHYS ---
Physician Documentation [facility] Name: Dean Rosenthal Age: 52 yrs Sex: Male : 1970 Arrival Date: 01/02/2023 Time: 21:43 Bed 8 Private MD: ED Physician Sheldon Rees HPI: 01/02 22:00 This 52 yrs old Black Male presents to ER via Unassigned with complaints of Chest Pain, sp4 Low Back Pain. 22:01 PMH - Allergies: No Known Allergies PMHx: Arthritis; Diabetes - NIDDM; GERD; High sp4 Cholesterol; Hypertension; osteoarthritis PSHx: LEFT HIP REPLACEMENT (osteoarthritis); RECTAL ABSCESS (osteoarthritis);. 22:08 52-year-old male with history of diabetes, hypercholesterolemia, GERD, osteoarthritis, sp4 hypertension, fatty liver disease and hypertension presents with acute onset midsternal chest pain starting 1 hour ago described as stabbing discomfort associated with shortness of breath and anxiety. Patient reports tingling in the left arm. Denied exertional chest pain denied syncope. Historical: - PMHx: 22:02 Arthritis; Diabetes - NIDDM; GERD; High Cholesterol; Hypertension; osteoarthritis; rv - PSHx: 22:02 Left hip replacement (rt); RECTAL ABSCESS (rt); rv - Immunization history:: Adult Immunizations up to date. - Social history:: Smoking status: unknown. - Family history:: not pertinent. ROS: 22:08 Constitutional: Negative for fever, chills, and weight loss, Cardiovascular: Positive sp4 chest pain positive shortness of breath positive left arm tingling positive anxiety 22:08 All other systems are negative, Exam: 22:08 Constitutional: This is a well developed, well nourished patient who is awake, alert, sp4 and in no acute distress. Head/Face: Normocephalic, atraumatic. Eyes: Pupils equal round and reactive to light, extra-ocular motions intact. Lids and lashes normal. Conjunctiva and sclera are not injected. Cornea within normal limits. Periorbital areas with no swelling, redness, or edema. ENT: Nares patent. No nasal discharge, no septal abnormalities noted. Tympanic membranes are normal and external auditory canals are clear. Oropharynx with no redness, swelling, or masses, exudates, or evidence of obstruction, uvula midline. Mucous membranes moist. Neck: Trachea midline, no thyromegaly or masses palpated, and no cervical lymphadenopathy. Supple, full range of motion without nuchal rigidity, or vertebral point tenderness. Chest/axilla: Normal chest wall appearance and motion. Nontender with no deformity. No lesions are appreciated. Cardiovascular: Regular rate and rhythm with a normal S1 and S2. No gallops, murmurs, or rubs. Normal PMI, no JVD. No pulse deficits. Respiratory: Lungs have equal breath sounds bilaterally, clear to auscultation and percussion. No rales, rhonchi or wheezes noted. No increased work of breathing, no retractions or nasal flaring. Abdomen/GI: Soft, non-tender, with normal bowel sounds. No distension or tympany. No guarding or rebound. No evidence of tenderness throughout. Back: No spinal tenderness. No costovertebral tenderness. Male : Normal genitalia with no discharge or lesions. Skin: Warm, dry with normal turgor. Normal color with no rashes, no lesions, and no evidence of cellulitis. MS/ Extremity: Pulses equal, no cyanosis. Neurovascular intact. Full, normal range of motion. Neuro: Awake and alert, GCS 15, oriented to person, place, time, and situation. Cranial nerves II-XII grossly intact. Motor strength 5/5 in all extremities. Sensory grossly intact. Psych: Awake, alert, with orientation to person, place and time. Behavior, mood, and affect are within normal limits 22:28 ECG was reviewed by the Attending Physician. EKG reveals sinus tachycardia at the rate sp4 of 102 EKG time 2153 Vital Signs: 22:01 BP 130 / 87; Pulse 102; Resp 20; Temp 98; Pulse Ox 100% ; Weight 113.4 kg; Height 5 ft. rv 11 in. ; 22:51 BP 140 / 63; Pulse 97; Resp 22; Pulse Ox 99% ; 01/03 00:00 BP 108 / 69; Pulse 96; Resp 17 S; Pulse Ox 98% on R/A; jw 01:00 BP 109 / 88; Pulse 103; Resp 17 S; Pulse Ox 98% on R/A; jw 01:49 BP 123 / 61; Pulse 95; Resp 17; Pulse Ox 96% ; 01/02 22:01 Body Mass Index 34.87 (113.40 kg, 180.34 cm) rv MDM: 01/02 22:02 Patient medically screened. [facility] 01/03 00:25 Differential diagnosis: acute myocardial infarction, acute pericarditis, anxiety, sp4 coronary artery disease chest wall pain, congestive heart failure cholecystitis. HEART Score: History: Moderately Suspicious (1), ECG: Normal (0), Age: > 45 and < 65 years (1), Risk Factors: > or = 3 Risk factors for atherosclerotic disease (2), Troponin: < or = 1 x Normal Limit (0), Total Score = 4. Data reviewed: vital signs, nurses notes, old medical records, lab test result(s), EKG, radiologic studies, plain films. ED course: Date patient warrants admission at this time for further evaluation. 00:27 ED course: Chest x-ray revealed no acute cardiopulmonary process. . [facility] 01/02 22:02 Order name: Basic Metabolic Panel; Complete Time: 00:22 [facility] 01/02 22:02 Order name: CBC with Diff; Complete Time: 00:22 [facility] 01/02 22:02 Order name: LFT's; Complete Time: 00:22 [facility] 01/02 22:02 Order name: Magnesium; Complete Time: 00:22 [facility] 01/02 22:02 Order name: NT PRO-BNP; Complete Time: 00:22 [facility] 01/02 22:02 Order name: PT-INR; Complete Time: 00:22 [facility] 01/02 22:02 Order name: Troponin HS; Complete Time: 00:22 [facility] 01/03 00:26 Order name: COVID-19 SARS RT PCR [facility] 01/03 01:19 Order name: Lipid Profile [facility] 01/03 01:19 Order name: Lipid Profile [facility] 01/03 01:20 Order name: Troponin High Sensitivity [facility] 01/03 01:20 Order name: Troponin High Sensitivity [facility] 01/03 01:20 Order name: Troponin High Sensitivity [facility] 01/03 01:20 Order name: Troponin High Sensitivity [facility] 01/02 22:02 Order name: XRAY Chest (1 view); Complete Time: 00:22 [facility] 01/03 01:20 Order name: Echo with Doppler [facility] 01/02 22:02 Order name: EKG; Complete Time: 22:03 [facility] 01/02 22:02 Order name: Cardiac monitoring; Complete Time: 22:42 sp4 01/02 22:02 Order name: EKG - Nurse/Tech; Complete Time: 22:04 sp4 01/02 22:02 Order name: IV Saline Lock; Complete Time: :42 sp4 01/02 22:02 Order name: Labs collected and sent; Complete Time: :42 sp4 01/02 22:02 Order name: O2 Per Protocol; Complete Time: :42 sp4 01/02 22:02 Order name: O2 Sat Monitoring; Complete Time: :42 sp4 EC/16 22:28 Rate is 102 beats/min. Rhythm is regular, Sinus tachycardia. QRS [place] is Normal. [place] sp4 interval is normal. QRS interval is normal. QT interval is normal. No Q waves. T waves are Normal. No ST changes noted. Clinical impression: No evidence of ischemia. Interpreted by me. Reviewed by me. Administered Medications: 22:40 Drug: Diazepam PO 5 mg PO once Route: PO; [email or web address] 01/03 01:29 Follow up: Response: No adverse reaction 7 01/02 22:40 Drug: Aspirin PO Chewable Tablet 324 mg PO once; 81 mg tablets x 4 Route: PO; jj7 01/03 01:29 Follow up: Response: No adverse reaction 7 01/02 22:47 Drug: morphine IVP or IV 4 mg IVP once over 4 mins Route: IVP; Infused Over: 4 mins; jj7 Site: right forearm; 01/03 01:29 Follow up: Response: No adverse reaction 7 01/02 22:47 Drug: Ondansetron IVP 4 mg IVP once; over 2 minutes Route: IVP; Site: right forearm; jj7 01/03 01:29 Follow up: Response: No adverse reaction jw7 01:03 Drug: morphine IVP or IV 2 mg IVP once over 4 mins Route: IVP; Infused Over: 4 mins; rv Site: right antecubital; 01:29 Follow up: Response: No adverse reaction; Marked relief of symptoms jw7 01:03 Drug: Zolpidem PO 5 mg PO once Route: PO; rv 01:30 Follow up: Response: No adverse reaction jw7 Disposition Summary: 01/03/23 00:25 Hospitalization Ordered Notes: Hospitalization Status: Observation sp4 Provider: Asaf Leo sp4 Location: Telemetry/MedSurg (observation) sp4 Condition: Stable sp4 Problem: new sp4 Symptoms: have improved sp4 Bed/Room Type: Standard sp4 Room Assignment: 413(01/03/23 01:28) [facility] Diagnosis - Chest pain, unspecified sp4 - Angina pectoris, unspecified sp4 Forms: - Medication Reconciliation Form sp4 - SBAR form sp4 - Leadership Thank You Letter sp4 Signatures: Dispatcher [employer] EDWill Mccrary RN RN Glenny Haines RN RN jj7 Sheldon Rees MD MD sp Zulma Crouch [facility] Ramila Tay RN jw7 Corrections: (The following items were deleted from the chart) 01:24 00:25 sp4 [id number] 01:28 01:24 410 jr12 [facility]
[2023-01-03] MEDS ORDERED: MORPHINE 2 MG/ML SYR ONE (01:13)
[2023-01-03] MEDS ORDERED: ZOLPIDEM TARTRATE 5 MG TABLET ONE (01:13)
[2023-01-03] MEDS ORDERED: ACETAMINOPHEN 325 MG TABLET PO PRN (01:14)
[2023-01-03] MEDS ORDERED: ONDANSETRON 4 MG/2 ML VIAL IV PRN (01:14)
--- NOTE | 2023-01-03 01:20 | P.HP ---
Certification for Inpatient Patient admitted to: Observation With expected LOS: <2 Midnights Patient will require the following post-hospital care: None Practitioner: I am a practitioner with admitting privileges, knowledge of patient current condition, hospital course, and medical plan of care. Services: Services provided to patient in accordance with Admission requirements found in Title 42 Section 412.3 of the Code of Federal Regulations Patient History Date of Service: 01/03/23 Reason for admission: Chest pain. History of Present Illness: 52 y o male patient with medical history significant for coronary artery disease, hypertension, hyperlipidemia, diabetes type 2 who also has a history of multiple intervention for chest pain in the past who came to the emergency with complaint of chest pain. Chest pain is rated 7 out of 10 in intensity with radiation into the left and jaw area. Patient decided to come to the ED because of his significant prior history and as per information given by patient he follows up with Dr. Cantu. His initial labs and EKG were nonconcerning. He was admitted for inpatient care. Prior to this encounter patient denied any episode of nausea, vomiting, dizzy spells, cough, fever, chills. Allergies No Known Allergies Allergy (Unverified 08/25/21 07:29) Home Medications: Atorvastatin Calcium [Lipitor] 40 mg PO BEDTIME 08/26/21 Cyclobenzaprine [Flexeril*] 10 mg PO TID PRN 08/26/21 Empagliflozin [Jardiance] 25 mg PO AC 08/26/21 Insulin Aspart [Novolog Flexpen] 10 units SQ TIDWM 08/26/21 Insulin Glargine,Hum.rec.anlog [Toujeo Solostar] 50 units SQ AC 08/26/21 Metformin HCl [Glucophage*] 1,000 mg PO BID 08/26/21 Montelukast [Singulair*] 10 mg PO BEDTIME 08/26/21 Pantoprazole [Protonix Tab*] 40 mg PO DAILY 08/26/21 Pregabalin [Lyrica*] 75 mg PO BID 08/26/21 Hydrocodone 5/APAP 325 [[place] 5/325*] 1 tab PO Q6H PRN #15 tab 08/20/22 Acetaminophen with Codeine [Acetaminophen-Cod #4 Tablet] TID PRN 01/03/23 Amlodipine [Norvasc*] 5 mg PO DAILY 01/03/23 Fenofibrate [Tricor] 145 mg PO DAILY 01/03/23 Sertraline [Zoloft] 200 mg PO DAILY 01/03/23 Tramadol HCl [Ultram] 100 mg PO BID 01/03/23 - Past Medical/Surgical History Diabetic: Yes -: Diabetes mellitus type 2insulin-dependent -: Hypertension -: Hyperlipidemia -: GERD -: Osteodegenerative arthritis -: sciatic nerve damage -: diverticulosis -: None Psychosocial/ Personal History: Patient lives at home with his family, 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 - Family History Mother -: Hypertension, Diabetes - Social History Alcohol use: Yes CD- Drugs: Yes Caffeine use: No Review of Systems General: Unremarkable Eyes: Unremarkable ENT: Unremarkable Respiratory: Unremarkable Cardiovascular: Chest Pain Gastrointestinal: Unremarkable Genitourinary: Unremarkable Musculoskeletal: Unremarkable Integumentary: Unremarkable Neurological: Unremarkable Physical Examination - Physical Exam General: Alert, Oriented x3 HEENT: Atraumatic, Normocephalic Neck: Supple Respiratory: Normal air movement Cardiovascular: Normal pulses, Regular rate/rhythm, Normal S1 S2 Gastrointestinal: Soft and benign Musculoskeletal: No swelling Neurological: Normal speech, Normal strength at 5/5 x4 extr - Studies Laboratory Data (last 24 hrs) 01/02/23 01/02/23 01/02/23 22:34 22:34 22:34 WBC 6.80 Hgb 12.2 L Hct 35.8 L Plt Count 336 PT 10.9 INR 0.99 Sodium 139 Potassium 3.3 L BUN 7 Creatinine 0.94 Glucose 164 H Magnesium 1.9 Total Bilirubin 0.4 AST 34 ALT 43 Alkaline Phosphatase 62 Assessment and Plan - Plan Chest pain: Patient's presentation is concerning for ACS. Troponin trend, aspirin therapy and as needed morphine for pain control has been started. We will continue ACS protocol as per cardiology recommendation. We will obtain echocardiogram to assess cardiac function. Cardiology consultation placed. DM 2: We will continue patient on carb restricted diet, sliding scale insulin for glucose control and monitor blood sugar before meals and at bedtime. Hypertension: We will monitor vital signs per unit protocol and continue outpatient antihypertensive medications. Hyperlipidemia: We will continue statin therapy. Lipid panel obtained to assess for adequacy of statin therapy. Prophylaxis: Lovenox for DVT prophylaxis Code status: Full code Disposition: We will work-up chest pain he will be discharged once he is cleared by cardiology. - Advance Directives Does patient have a Living Will: No Does patient have a Durable POA for Healthcare: No
[2023-01-03 02:24] VITALS: BMI 34.8
[2023-01-03 02:28] VITALS: O2SAT 96
[2023-01-03] MEDS: GABAPENTIN 300 MG CAP PO SCH ×2 (03:23→20:02)
[2023-01-03] MEDS: HYDROCODONE/APAP 5/325 MG TAB PO PRN ×2 (03:23→13:23)
[2023-01-03] MEDS: INSULIN REGULAR (HUMAN) 100 UNIT/ML SQ SCH ×4 (07:30→21:00)
[2023-01-03] MEDS: ENOXAPARIN 40 MG/0.4 ML SQ SCH (08:07)
--- NOTE | 2023-01-03 14:23 | EKG ---
Test Date: 2023-01-02 Test Time: 21:53:33 [place]: RV MEASUREMENT RESULTS: Intervals: Rate: 102 [place]: 190 QRSD: 94 QT: 354 QTc: 461 [place]: P: 48 [place]: 190 QRS: 73 T: 28 INTERPRETIVE STATEMENTS: Sinus tachycardia Otherwise normal ECG Compared to ECG 12/03/2022 01:31:09 Sinus rhythm no longer present First degree AV block no longer present Electronically Signed On 01-03-23 14:22:00 [employer] by Mehrdad Cantu
--- NOTE | 2023-01-03 14:45 | ECHO ---
HEIGHT: 5 ft 11 in WEIGHT: 250 lb 0 oz DATE OF STUDY: 01/03/[address]: Asaf Leo MD 2-DIMENSIONAL: YES M.MODE: YES DOPPLER: YES COLOR FLOW: YES TDS: NO PORTABLE: YES DEFINITY: NO BUBBLE STUDY: NO DIAGNOSIS: CHEST PAIN CARDIAC HISTORY: CATHERIZATION: SURGERY: PROSTHETIC VALVE: PACEMAKER: MEASUREMENTS (cm) DIASTOLIC (NORMALS) SYSTOLIC (NORMALS) IVSd 1.1 (0.6-1.2) LA Diam 3.5 (1.9-4.0) LVEF 61% LVIDd 4.5 (3.5-5.7) LVIDs 3.1 (2.0-3.5) %FS 32% LVPWd 1.2 (0.6-1.2) Ao Diam 3.9 (2.0-3.7) 2 DIMENSIONAL ASSESSMENT: RIGHT ATRIUM: NORMAL LEFT ATRIUM: NORMAL RIGHT VENTRICLE: NORMAL LEFT VENTRICLE: NORMAL TRICUSPID VALVE: NORMAL MITRAL VALVE: NORMAL PULMONIC VALVE: MILD PULMONARY REGURGITATION AORTIC VALVE: NORMAL PERICARDIAL EFFUSION: NONE AORTIC ROOT: MILDLY DILATED LEFT VENTRICULAR WALL MOTION: NORMAL DOPPLER/COLOR FLOW: SEE BELOW. COMMENTS: 1. NORMAL LEFT VENTRICULAR EJECTION FRACTION 60-65%. 2. NORMAL WALL MOTION. 3. GRADE I DIASTOLIC DYSFUNCTION. 4. MILDLY DILATED AORTIC ROOT. TECHNOLOGIST: Oleg SHAFER
[2023-01-03] MEDS ORDERED: LORAZEPAM 0.5 MG TABLET PO ONE (16:00)
[2023-01-03] MEDS: MORPHINE 2 MG/ML SYR IV PRN (20:02)
[2023-01-04] MEDS: MORPHINE 2 MG/ML SYR IV PRN ×2 (04:51→10:58)
[2023-01-04 06:53] LABS: HDL Cholesterol 26 mg/dL (40-60)
[2023-01-04 07:19] LABS: LDL, Direct 44 mg/dL (100-129)
[2023-01-04] MEDS: INSULIN REGULAR (HUMAN) 100 UNIT/ML SQ SCH ×2 (07:30→11:30)
--- NOTE | 2023-01-04 09:27 | RAD REPORT ---
EXAM DESCRIPTION: CT - C Spine Wo Con - 01/04/2023 8:23 am CLINICAL HISTORY: Left upper extremity numbness COMPARISON: None TECHNIQUE: Computed axial tomography of the cervical spine were obtained with sagittal and coronal r econstruction images generated and reviewed. All CT scans are performed using dose optimization technique as appropriate and may include automated exposure control or mA/KV adjustment according to patient size. FINDINGS: A lucency posterior aspect of the C7 spinous process probably subacute or old fracture No dislocation Right posterior-lateral disc osteophyte complex C3-4 results in moderate to marked narrowing right ne ural foramina Right posterior-lateral disc osteophyte complex C5-6 results in marked narrowing of the right neural foramina IMPRESSION: Subacute to old fracture spinous process C7 Right posterior-lateral disc osteophyte complex C3-4 results in moderate to marked right foraminal st enosis Right posterior-lateral disc osteophyte complex C5-6 results in marked right foraminal stenosis MRI may be helpful for further evaluation
[2023-01-04] MEDS: ENOXAPARIN 40 MG/0.4 ML SQ SCH (09:39)
[2023-01-04] MEDS: HYDROCODONE/APAP 5/325 MG TAB PO PRN (09:39)
[2023-01-04 10:36] VITALS: BP 152/71; TEMP 97.2
[2023-01-04] MEDS ORDERED: METHYLPREDNISOLONE 40 MG INJ IV SCH (18:30)
== END 2023-01-04 13:12 | disposition home or self-care (01) ==
LOC: ER 21:43 → INTOOBSV 01-03 01:33 → 4TH 01-03 01:33
PROVIDERS: ADMIT Internal Medicine Nephrology; ATTEND Hospitalist
DX: R07.9 Chest pain, unspecified (principal); M54.50 Low back pain, unspecified; I25.10 Atherosclerotic heart disease of native coronary artery without angina pectoris; I10 Essential (primary) hypertension; E78.5 Hyperlipidemia, unspecified; E11.9 Type 2 diabetes mellitus without complications; Z11.52 Encounter for screening for COVID-19
CPT/HCPCS: 93005; 93306; 85025; 80048; 36415 ×2; 83721; 83735; 85610; 80061; 82947 ×5; 80076; 84484 ×4; 83880; 87635; 72125; 71045; 99285; J1650 ×2; J2270 ×4; J2405; G0378

== ENCOUNTER → 2023-03-17 | Emergency (ER) | payer BC ==
[~2023-03-17] MED LIST: ASPIRIN 81 MG CHEWABLE TABLET ONE; HYDROCODONE/CHLORPHEN 5 ML/OSYR ONE; KETOROLAC 30 MG/ML INJ ONE
[2023-03-17 21:20] LABS: Absolute Lymphocytes (CBC) 2.2 K/uL (0.7-4.9); Hematocrit 37.9 % (39.6-49.0); Lymphocytes % 40.5 % (15.3-44.8); MPV 8.4 fL (7.6-11.3); Platelets 382 thou/uL (152-406); RBC Red Blood Cell Count 4.57 M/uL (4.33-5.43)
[2023-03-17 21:42] LABS: Albumin 4.1 g/dL (3.4-5.0); Bilirubin Direct 0.2 mg/dL (0-0.2); Bilirubin Indirect, Calculated 0.3 mg/dL (0.2-0.8); Bilirubin Total 0.5 mg/dL (0.2-1.0); Magnesium 1.9 mg/dL (1.6-2.4); Potassium 3.6 mEq/L (3.5-5.1); Protein, Total 8.2 g/dL (6.4-8.2); Troponin High Sensitivity 37.6 pg/mL (<58.9)
[2023-03-17 21:57] LABS: Protime INR 0.96
--- NOTE | 2023-03-17 22:04 | RAD REPORT ---
EXAM DESCRIPTION: [place] Single View03/17/2023 8:59 pm CLINICAL HISTORY: CHEST PAIN COMPARISON: Chest Single View dated 01/02/2023; Chest Single View dated 12/02/2022; Chest Single Vie w dated 09/07/2022; Chest Single View dated 08/19/2022 TECHNIQUE: Portable AP view of the chest. FINDINGS: The lungs are clear. No pneumothorax or effusion. The cardiomediastinal contours are unre markable. IMPRESSION: No acute cardiopulmonary process.
--- NOTE | 2023-03-18 02:03 | ER ---
Nurse's Notes [facility] Name: Dean Rosenthal Age: 52 yrs Sex: Male : 1970 Arrival Date: 03/17/2023 Time: 20:19 Bed 16 Private MD: Diagnosis: Cough;Chest pain, unspecified Presentation: 03/17 20:37 Chief complaint: Patient states: Had chest pain for a couple of days that gets worse vc1 with cough, deep breaths, and movement. Coronavirus screen: Vaccine status: Patient reports receiving the 2nd dose of the covid vaccine. Client denies travel out of the [place] in the last 14 days. cough unrelated to allergies, Client presents with at least one sign or symptom that may indicate coronavirus-19. Ebola Screen: Patient negative for fever greater than or equal to 101.5 degrees Fahrenheit, and additional compatible Ebola Virus Disease symptoms Patient denies exposure to infectious person. Patient denies travel to an Ebola-affected area in the 21 days before illness onset. No symptoms or risks identified at this time. Initial Sepsis Screen: Does the patient meet any 2 criteria? RR > 20 per min. HR > 90 bpm. Yes Does the patient have a suspected source of infection? No. Patient's initial sepsis screen is negative. Risk Assessment: Do you want to hurt yourself or someone else? Patient reports no desire to harm self or others. Onset of symptoms was March 14, 2023. 20:37 Method Of Arrival: Ambulatory vc1 20:37 Acuity: DIANNA 3 vc1 Triage Assessment: 20:50 General: Appears in no apparent distress. uncomfortable, obese, Behavior is vc1 cooperative, appropriate for age. Pain: Complains of pain in anterior aspect of right upper chest, anterior aspect of left upper chest, right breast and left breast Pain does not radiate. Pain currently is 8 out of 10 on a pain scale. at worst was 10 out of 10 on a pain scale. Quality of pain is described as sharp, Pain began 2-3 days ago. Is episodic, Aggravated by coughing, deep breaths, and movements. EENT: No deficits noted. No signs and/or symptoms were reported regarding the EENT system. Neuro: Level of Consciousness is awake, alert, obeys commands, Oriented to person, place, time, situation, Appropriate for age. Cardiovascular: Chest pain is described as severe, is aggravated by activity, breathing. Respiratory: Reports cough that is dry, persistent Airway is patent Respiratory effort is even, unlabored, Respiratory pattern is symmetrical, tachypnea. GI: No deficits noted. No signs and/or symptoms were reported involving the gastrointestinal system. : No deficits noted. No signs and/or symptoms were reported regarding the genitourinary system. Derm:. Musculoskeletal: No deficits noted. No signs and/or symptoms reported regarding the musculoskeletal system. Historical: - Allergies: 20:44 No Known Allergies; vc1 - Home Meds: 20:44 Cyclobenzaprine Oral [Active]; amlodipine oral [Active]; Metformin Oral [Active]; vc1 Mounjaro subcutaneous [Active]; BuSpar Oral [Active]; sertraline oral [Active]; pantoprazole oral [Active]; - PMHx: 20:44 Arthritis; Diabetes - NIDDM; GERD; High Cholesterol; Hypertension; osteoarthritis; vc1 - PSHx: 20:44 Left hip replacement; RECTAL ABSCESS; vc1 - Immunization history:: Client reports receiving the 2nd dose of the Covid vaccine, Flu vaccine is not up to date. - Social history:: Smoking status: Patient denies any tobacco usage or history of. Screenin:50 Abuse screen: Denies threats or abuse. Nutritional screening: No deficits noted. vc1 Tuberculosis screening: No symptoms or risk factors identified. Assessment: 20:23 General: Appears uncomfortable, Behavior is calm, cooperative. Pain: Complains of pain ha1 in CHEST PAIN WHEN COUGHING Pain does not radiate. Pain currently is 8 out of 10 on a pain scale. Quality of pain is described as pressure. Neuro: Level of Consciousness is awake, alert, obeys commands, Oriented to person, place, time, situation, Appropriate for age. Cardiovascular: Capillary refill < 3 seconds Patient's skin is warm and dry. Cardiovascular: Heart tones S1 S2 present Rhythm is sinus rhythm. Respiratory: Airway is patent Respiratory effort is even, unlabored, Respiratory pattern is regular, symmetrical. Respiratory: Reports cough that is non-productive. GI: Abdomen is round non-distended. : No signs and/or symptoms were reported regarding the genitourinary system. Derm: Skin is pink, warm \T\ dry. Musculoskeletal: Circulation, motion, and sensation intact. Range of motion: intact in all extremities. 21:25 Reassessment: Patient and/or family updated on plan of care and expected duration. Pain ha1 level reassessed. Patient is alert, oriented x 3, equal unlabored respirations, skin warm/dry/pink. 22:30 Reassessment: Patient and/or family updated on plan of care and expected duration. Pain ha1 level reassessed. Patient is alert, oriented x 3, equal unlabored respirations, skin warm/dry/pink. Patient states symptoms have improved. 23:30 Reassessment: Patient and/or family updated on plan of care and expected duration. Pain ha1 level reassessed. Patient is alert, oriented x 3, equal unlabored respirations, skin warm/dry/pink. Patient states feeling better. Patient states symptoms have improved. 03/18 00:30 Reassessment: Patient and/or family updated on plan of care and expected duration. Pain ha1 level reassessed. Patient is alert, oriented x 3, equal unlabored respirations, skin warm/dry/pink. 01:30 Reassessment: Patient and/or family updated on plan of care and expected duration. Pain ha1 level reassessed. Patient is alert, oriented x 3, equal unlabored respirations, skin warm/dry/pink. 02:33 Reassessment: Patient and/or family updated on plan of care and expected duration. Pain ha1 level reassessed. Patient is alert, oriented x 3, equal unlabored respirations, skin warm/dry/pink. Patient states feeling better. Patient states symptoms have improved. Vital Signs: 03/17 20:37 BP 128 / 76; Pulse 94; Resp 25; Temp 97.9; Pulse Ox 100% ; Weight 120.2 kg; Height 5 vc1 ft. 9 in. ; Pain 8/10; 21:00 BP 116 / 74; Pulse 90; Resp 17 S; Pulse Ox 100% on R/A; ha1 21:30 BP 124 / 71; Pulse 89; Resp 17 S; Pulse Ox 100% on R/A; ha1 22:30 BP 129 / 64; Pulse 85; Resp 17 S; Pulse Ox 100% on R/A; ha1 23:30 BP 124 / 64; Pulse 85; Resp 17 S; Pulse Ox 100% on R/A; ha1 01/30 00:30 BP 111 / 71; Pulse 82; Resp 17 S; Pulse Ox 100% on R/A; ha1 01:30 BP 119 / 67; Pulse 85; Resp 17 S; Pulse Ox 100% on R/A; ha1 03/17 20:37 Body Mass Index 39.13 (120.20 kg, 175.26 cm) vc1 03/17 20:37 Pain Scale: Adult vc1 ED Course: 03/17 20:00 Patient maintains SpO2 saturation greater than 95% on room air. ha1 20:22 Patient arrived in ED. ag3 20:23 Patient has correct armband on for positive identification. Placed in gown. Bed in low ha1 position. Call light in reach. Side rails up X 1. 20:25 Ruben Victoria PA is PHCP. cp 20:25 Sheldon Rees MD is Attending Physician. cp 20:40 Inserted saline lock: 20 gauge in left antecubital area, using aseptic technique. Blood ha1 collected. 20:44 Triage completed. vc1 20:49 Arm band placed on right wrist. vc1 20:50 Client placed on continuous cardiac and pulse oximetry monitoring. NIBP monitoring vc1 applied. 20:53 Ruby Escoto, RN is Primary Nurse. ha1 21:01 XRAY Chest (1 view) In Process Unspecified. EDMS 21:12 Basic Metabolic Panel Sent. ha1 21:12 CBC with Diff Sent. ha1 21:12 D-Dimer Sent. ha1 21:12 LFT's Sent. ha1 21:12 Magnesium Sent. ha1 21:13 NT PRO-BNP Sent. ha1 21:13 PT-INR Sent. ha1 21:13 Troponin HS Sent. ha1 21:13 COVID-19 SARS RT PCR Sent. ha1 21:13 Influenza Screen (a \T\ B) Sent. ha1 22:51 US Extremity Venous W Compression Zach In Process Unspecified. EDMS 23:11 CT Chest For PE Angio In Process Unspecified. EDMS 03/18 02:36 No provider procedures requiring assistance completed. IV discontinued, intact, ha1 bleeding controlled, No redness/swelling at site. Pressure dressing applied. 02:37 Provided Education on: medication administration and follow ups. ha1 Administered Medications: 03/17 21:13 Drug: Aspirin PO Chewable Tablet 324 mg PO once; 81 mg tablets x 4 Route: PO; ha1 22:00 Follow up: Response: No adverse reaction ha1 22:39 Drug: Ketorolac IVP 15 mg IVP once Route: IVP; Site: left antecubital; ha1 23:00 Follow up: Response: No adverse reaction; Marked relief of symptoms ha1 03/18 00:49 Drug: Tussionex Pennkinetic ER PO Suspension 5 ml PO once Route: PO; ha1 01:35 Follow up: Response: No adverse reaction; Marked relief of symptoms ha1 Medication: 03/17 21:49 VIS not applicable for this client. ha1 Outcome: 03/18 02:02 Discharge ordered by MD. cp 02:36 Discharged to home ambulatory, ha1 02:36 Condition: stable 02:36 Discharge instructions given to patient, Instructed on discharge instructions, follow up and referral plans. medication usage, Demonstrated understanding of instructions, follow-up care, medications, Prescriptions given X 4, 02:38 Patient left the ED. ha1 Signatures: Dispatcher [employer] EDMS Ruben Victoria PA PA cp Gomez, Alice ag3 Cori Calles, RN RN 1 Ruby Escoto, RN RN ha1 Corrections: (The following items were deleted from the chart) 03/17 20:49 20:44 Allergies: No Known Allergies; vc1 vc1 20:49 20:44 Allergies: CYCLOBENZAPRINE; vc1 vc1 20:49 20:44 Allergies: amlodipine; vc1 vc1 20:49 20:44 Allergies: Metformin HCl; vc1 vc1 20:49 20:44 Allergies: Mounjaro; vc1 vc1 20:49 20:44 Allergies: BuSpar; vc1 vc1 20:49 20:44 Allergies: sertraline; vc1 vc1 20:49 20:44 Allergies: pantoprazole; vc1 vc1
--- NOTE | 2023-03-18 02:03 | EDPHYS ---
Physician Documentation [facility] Name: Dean Rosenthal Age: 52 yrs Sex: Male : 1970 Arrival Date: 03/17/2023 Time: 20:19 Bed 16 Private MD: ED Physician Sheldon Rees HPI: 03/17 20:52 This 52 yrs old Black Male presents to ER via Ambulatory with complaints of Chest Pain, cp Cough. 20:52 The patient or guardian reports chest pain that is located primarily in the anterior cp chest wall, bilaterally. 20:52 Onset: 2 day(s) ago. The pain does not radiate. Associated signs and symptoms: cp Pertinent positives: cough, lower extremity swelling, Pertinent negatives: abdominal pain, diaphoresis, palpitations, vomiting. Duration: The patient or guardian reports a single episode, that is still ongoing. Modifying factors: the symptoms are aggravated by cough, deep breath, movement. 20:52 The chest pain is described as sharp. Severity of pain: in the emergency department the cp pain is unchanged despite home interventions. Historical: - Allergies: 20:44 No Known Allergies; vc1 - Home Meds: 20:44 Cyclobenzaprine Oral [Active]; amlodipine oral [Active]; Metformin Oral [Active]; vc1 Mounjaro subcutaneous [Active]; BuSpar Oral [Active]; sertraline oral [Active]; pantoprazole oral [Active]; - PMHx: 20:44 Arthritis; Diabetes - NIDDM; GERD; High Cholesterol; Hypertension; osteoarthritis; vc1 - PSHx: 20:44 Left hip replacement; RECTAL ABSCESS; vc1 - Immunization history:: Client reports receiving the 2nd dose of the Covid vaccine, Flu vaccine is not up to date. - Social history:: Smoking status: Patient denies any tobacco usage or history of. ROS: 20:55 Constitutional: Negative for fever, poor PO intake, cp 20:55 Eyes: Negative for injury, pain, redness, and discharge, cp 20:55 ENT: Negative for drainage from ear(s), ear pain, sore throat, difficulty swallowing, difficulty handling secretions, 20:55 Cardiovascular: Positive for chest pain, 20:55 Respiratory: Positive for cough, with no reported sputum, 20:55 Abdomen/GI: Negative for abdominal pain, vomiting, diarrhea, constipation, 20:55 Neuro: Negative for altered mental status, dizziness, headache, syncope, 20:55 All other systems are negative, Exam: 20:35 ECG was reviewed by the Attending Physician. cp 21:00 Constitutional: The patient appears in no acute distress, alert, awake, cp non-diaphoretic, non-toxic, well developed, well nourished, obese, uncomfortable, 21:00 Head/Face: Normocephalic, atraumatic. cp 21:00 Eyes: Periorbital structures: appear normal, Conjunctiva: normal, no exudate, no injection, Sclera: no appreciated abnormality, Lids and lashes: appear normal, bilaterally, 21:00 ENT: External ear(s): are unremarkable, Nose: is normal, Mouth: Lips: moist, Oral mucosa: pink and intact, moist, Posterior pharynx: is normal, airway is patent, no erythema, no exudate, 21:00 Neck: ROM/movement: is normal, is supple, without pain, no range of motions limitations, no meningismus, 21:00 Chest/axilla: Inspection: normal, Palpation: is normal, no crepitus, no tenderness, 21:00 Cardiovascular: Rate: normal, Rhythm: regular, Edema: is not appreciated, JVD: is not appreciated, 21:00 Respiratory: the patient does not display signs of respiratory distress, Respirations: normal, no use of accessory muscles, no retractions, labored breathing, is not present, Breath sounds: are clear throughout, no decreased breath sounds, no stridor, no wheezing, 21:00 Abdomen/GI: Inspection: obese Bowel sounds: active, all quadrants, Palpation: soft, in all quadrants, mild abdominal tenderness, in the right upper quadrant and left upper quadrant, rebound tenderness, is not appreciated, involuntary guarding, is not appreciated, Hernia: noted in the umbilical area, incarceration, is not appreciated, tenderness, is not appreciated, 21:00 Back: pain, is absent, 21:00 Skin: cellulitis, is not appreciated, no rash present. 21:00 Neuro: Orientation: to person, place \T\ time. Mentation: is normal, Motor: moves all fours, strength is normal, Sensation: is normal, Vital Signs: 20:37 BP 128 / 76; Pulse 94; Resp 25; Temp 97.9; Pulse Ox 100% ; Weight 120.2 kg; Height 5 vc1 ft. 9 in. ; Pain 8/10; 21:00 BP 116 / 74; Pulse 90; Resp 17 S; Pulse Ox 100% on R/A; ha1 21:30 BP 124 / 71; Pulse 89; Resp 17 S; Pulse Ox 100% on R/A; ha1 22:30 BP 129 / 64; Pulse 85; Resp 17 S; Pulse Ox 100% on R/A; ha1 23:30 BP 124 / 64; Pulse 85; Resp 17 S; Pulse Ox 100% on R/A; ha1 03/18 00:30 BP 111 / 71; Pulse 82; Resp 17 S; Pulse Ox 100% on R/A; ha1 01:30 BP 119 / 67; Pulse 85; Resp 17 S; Pulse Ox 100% on R/A; ha1 03/17 20:37 Body Mass Index 39.13 (120.20 kg, 175.26 cm) [facility] 03/17 20:37 Pain Scale: Adult [facility] MDM: 03/17 20:26 Patient medically screened. 03/18 02:01 Data reviewed: vital signs, nurses notes, lab test result(s), EKG, radiologic studies, cp plain films, and as a result, I will discharge patient. 02:01 Differential diagnosis: abnormal EKG, acute myocardial infarction, chest wall pain, cp pericarditis, pleurisy, pneumonia, pneumothorax, pulmonary embolus, stable angina, unstable angina. The patient was given aspirin in the Emergency Department. Consideration of Admission/Observation Escalation of care including admission/observation considered. patient declined admission for observation and would like outpatient treatment with Z-garrett, NSAIDs, steroids and cough medicine. Will return to ED worsening symptoms. I considered the following discharge prescriptions or medication management in the emergency department Medications were administered in the Emergency Department. See MAR. Independent interpretation of the following test(s) in the Emergency Department EKG: See my EKG interpretation above. 03/17 20:47 Order name: Basic Metabolic Panel; Complete Time: 22:05 03/18 00:36 Interpretation: Normal except: GLUC 112; GFR 85. 03/17 20:47 Order name: CBC with Diff; Complete Time: 22:05 03/18 00:36 Interpretation: Normal except: HGB 12.6; HCT 37.9; BASO% 1.7. cp 03/17 20:47 Order name: D-Dimer; Complete Time: 22:05 cp 03/18 00:36 Interpretation: Abnormal: D-DIMER 2311. cp 03/17 20:47 Order name: LFT's; Complete Time: 22:05 cp 03/18 00:37 Interpretation: Normal except: AST 44; GLOB 4.1; A/G 1.0. cp 03/17 20:47 Order name: Magnesium; Complete Time: 22:05 cp 03/18 00:37 Interpretation: Reviewed. cp 03/17 20:47 Order name: NT PRO-BNP; Complete Time: 22:05 cp 03/17 20:47 Order name: PT-INR; Complete Time: 22:05 cp 03/17 20:47 Order name: Troponin HS; Complete Time: 22:05 cp 03/18 00:37 Interpretation: Reviewed. cp 03/17 20:47 Order name: Influenza Screen (a \T\ B); Complete Time: 22:05 cp 03/18 00:38 Interpretation: Reviewed. cp 03/17 20:47 Order name: COVID-19 SARS RT PCR; Complete Time: 22:05 cp 03/18 00:38 Interpretation: Reviewed. cp 03/18 00:57 Order name: Troponin High Sensitivity; Complete Time: 02:00 cp 03/17 20:47 Order name: XRAY Chest (1 view); Complete Time: 00:36 cp 03/18 00:36 Interpretation: Report review. cp 03/17 22:06 Order name: CT Chest For PE Angio cp 03/17 22:06 Order name: US Extremity Venous W Compression Zach cp 03/17 20:47 Order name: EKG; Complete Time: 20:48 cp 03/17 20:47 Order name: Cardiac monitoring; Complete Time: 21:07 cp 03/17 20:47 Order name: EKG - Nurse/Tech; Complete Time: 21:07 cp 03/17 20:47 Order name: IV Saline Lock; Complete Time: 21:07 cp 03/17 20:47 Order name: Labs collected and sent; Complete Time: 21:07 cp 03/17 20:47 Order name: O2 Per Protocol; Complete Time: 21:08 cp 03/17 20:47 Order name: O2 Sat Monitoring; Complete Time: 21:08 cp EC/29 20:35 Rate is 93 beats/min. Rhythm is regular. OK interval is normal. QRS interval is normal. cp QT interval is normal. T waves are Inverted in lead aVR. Interpreted by me. Reviewed by me. Administered Medications: 21:13 Drug: Aspirin PO Chewable Tablet 324 mg PO once; 81 mg tablets x 4 Route: PO; ha1 22:00 Follow up: Response: No adverse reaction ha1 22:39 Drug: Ketorolac IVP 15 mg IVP once Route: IVP; Site: left antecubital; ha1 23:00 Follow up: Response: No adverse reaction; Marked relief of symptoms ha1 03/18 00:49 Drug: Tussionex Pennkinetic ER PO Suspension 5 ml PO once Route: PO; ha1 01:35 Follow up: Response: No adverse reaction; Marked relief of symptoms ha1 Disposition: 02:17 Co-signature as Attending Physician, Sheldon Rees MD I agree with the assessment sp4 and plan of care. I reviewed the patient's care provided by the Advanced Practice Provider and agree with the diagnosis and treatment plan. Disposition Summary: 03/18/23 02:02 Discharge Ordered Notes: Location: Home cp Problem: new cp Symptoms: have improved cp Condition: Stable cp Diagnosis - Cough cp - Chest pain, unspecified cp Followup: cp - With: Private Physician - When: 2 - 3 days - Reason: Recheck today's complaints Discharge Instructions: - Discharge Summary Sheet cp - Nonspecific Chest Pain, Adult cp - Aspirin and Your Heart cp - Cough, Adult cp Forms: - Medication Reconciliation Form cp - Thank You Letter cp - Antibiotic Education cp - Prescription Opioid Use cp - Patient Portal Instructions cp - Leadership Thank You Letter cp Prescriptions: - Bromfed DM 2-30-10 mg/5 mL Oral syrup - administer 10 milliliter ORAL route 4 times per day As needed as needed for cp cold symptoms; 240 milliliter; Refills: 0, Product Selection Permitted - Diclofenac Sodium 75 mg Oral Tablet Sustained Release - take 1 tablet ORAL route 2 times per day; 30 tablet; Refills: 0, Product cp Selection Permitted - Zithromax Z-Garrett 250 mg Oral Tablet - take 1 tablet ORAL route as directed for 5 days Day 1 - take two (2) tablets cp one time. Day 2, 3, 4 , 5 take one (1) tablet once daily.; 6 tablet; Refills: 0, Product Selection Permitted - Medrol (Garrett) 4 mg Oral Tablets, Dose Pack - take 1 tablet ORAL route as directed - follow package instructions; 1 packet; cp Refills: 0, Product Selection Permitted Signatures: Dispatcher [employer] EDMS Ruben Victoria PA PA cp Cori Calles RN RN vc1 Ruby Escoto RN RN ha1 Sheldon Rees MD MD sp4 Corrections: (The following items were deleted from the chart) 03/17 20:49 20:44 Allergies: No Known Allergies; vc1 vc1 20:49 20:44 Allergies: CYCLOBENZAPRINE; vc1 vc1 20:49 20:44 Allergies: amlodipine; vc1 vc1 20:49 20:44 Allergies: Metformin HCl; vc1 vc1 20:49 20:44 Allergies: Mounjaro; vc1 vc1 20:49 20:44 Allergies: BuSpar; vc1 vc1 20:49 20:44 Allergies: sertraline; vc1 vc1 20:49 20:44 Allergies: pantoprazole; vc1 vc1 03/18 20:42 03/17 20:52 The patient or guardian reports chest pain that is located primarily in the cp anterior chest wall, left, cp 03/18 20:46 02:01 Consideration of Admission/Observation Escalation of care including cp admission/observation considered. patient declined admission for observation and would like outpatient treatment with Z-garrett. cp
[2023-03-18 08:01] VITALS: TEMP 97.9; O2SAT 100
[2023-03-18 08:43] VITALS: BP 119/67
--- NOTE | 2023-03-18 12:11 | RAD REPORT ---
EXAM DESCRIPTION: US - Extrem Venous W Compress Zach - 03/17/2023 10:49 pm Extrem Venous W Compress Zach CLINICAL HISTORY: 52 years Male SWELLING COMPARISON: None TECHNIQUE: Real-time and Doppler sonography of the deep venous systems of the lower extremities was bilaterally. Grayscale, color, and spectral analysis was utilized. FINDINGS: No intraluminal thrombus is seen at any level. Satisfactory compressibility all levels. No popliteal cyst bilaterally. IMPRESSION: Negative study. No sonographic evidence for deep venous thrombosis involving the lower e xtremities bilaterally. Electronically signed by: Nella Self MD 03/17/2023 11:46 PM CUSHION PADDER Due to temporary technical issues with the PACS/Fluency reporting system, reports are being signed by the in house radiologists without review as a courtesy to insure prompt reporting. The interpreting radiologist is fully responsible for the content of the report.
--- NOTE | 2023-03-18 12:36 | RAD REPORT ---
EXAM DESCRIPTION: CT - Chest For Pe Angio - 03/18/2023 6:50 am CLINICAL HISTORY: 52 years, Male, SOB COMPARISON: 12/03/2022 TECHNIQUE: Multiple transaxial tomograms of the chest were obtained from the lung apices through the lung bases utilizing 2 mm slight thickness at 2 mm interval reconstruction after the administration of large bolus of IV contrast for complete opacification of the pulmonary arteries. Subsequent to 2-D and 3-D multiplanar reformats and maximum intensity projection images were generate d in the sagittal and coronal planes. An individualized dose optimization technique, Automated Exposure Control, was utilized for the perfo rmed procedure. FINDINGS: CTA: Evaluation of small pulmonary arteries is limited by suboptimal contrast opacification. No evidence of central pulmonary emboli or right heart strain. No acute finding in the thoracic aorta. Lungs: The lung parenchyma demonstrate to be clear. No significant pulmonary nodules, masses and/or c onsolidations. No evidence for pneumothorax. Airways: The trachea mainstem bronchus demonstrate to be within normal limits. Pleura: No evidence for significant pleural effusions. Mediastinum and vicente: There is no significant mediastinal and/or hilar lymphadenopathy. The axillary regions demonstrate to be clear. Heart and pericardium: The heart is normal in size. No significant pericardial effusion Vessels: Coronary: No significant coronary artery calcifications. Aorta: The thoracic aorta demonstrate to be within normal limits. No evidence for aneurysm. Other: There is no significant filling defects within the central pulmonary arteries to suggest pu lmonary embolus. Chest wall: The chest wall demonstrate to be within normal limits. Neck base: No significant finding. Osseous: The bone windows demonstrate to be within normal limits. No evidence for compression deformi ties and/or significant skeletal lesions. Visualized upper abdomen: The visualized portions of the upper abdomen demonstrate decreased attenuat ion of the liver suggesting fatty infiltration. IMPRESSION: Evaluation of small pulmonary arteries is limited by suboptimal contrast opacification. No evidence of central pulmonary emboli or right heart strain. No acute finding in the thoracic aorta. Fatty infiltration of the liver. 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 The interpreting radiologist is fully responsible for the content of the report.
== END ==
LOC: ER 20:19
DX: R05.9 Cough, unspecified (principal); R07.89 Other chest pain; Z11.52 Encounter for screening for COVID-19
CPT/HCPCS: 93005; 85025; 80048; 36415; 83735; 85610; 85379; 80076; 84484; 83880; 87635; 87804 ×2; 71275; 71045; 93970; Q9967

== ENCOUNTER 2023-05-28 19:15 | Observation (INO) | payer BC, OTHER, SELFPAY ==
[2023-05-28] MEDS ORDERED: ASPIRIN 81 MG CHEWABLE TABLET ONE (19:46)
[2023-05-28 20:16] LABS: Absolute Basophils 0.1 K/uL (0-0.5); Absolute Eosinophils 0.2 K/uL (0-0.5); Absolute Lymphocytes (CBC) 3.2 K/uL (0.7-4.9); Absolute Monocytes 0.4 K/uL (0.1-1.3); Absolute Neutrophil 2.2 K/uL (1.8-8.0); Basophils % 1.5 % (0-1.3); Eosinophils % 2.8 % (0-4.4); Hematocrit 40.4 % (39.6-49.0); Hemoglobin 13.6 g/dL (13.6-17.9); MCH 27.8 pg (27.0-35.0); MCHC 33.7 g/dL (32.0-36.0); MCV 82.5 fL (80-100); MPV 8.9 fL (7.6-11.3); Monocytes % 6.6 % (3.3-12.3); Neutrophils % 36.1 % (41.7-73.7); Nucleated Red Blood Cells % 0.2 % (0-0); Platelets 317 thou/uL (152-406); Red Cell Distribution Width 14.9 % (12.1-15.2)
--- NOTE | 2023-05-28 20:29 | RAD REPORT ---
EXAM DESCRIPTION: Zandra Single View05/28/2023 7:42 pm CLINICAL HISTORY: Chest pain COMPARISON: February 2023 FINDINGS: The lungs appear clear of acute infiltrate. The heart is normal size IMPRESSION: No acute abnormalities displayed
[2023-05-28 20:58] LABS: Anion Gap 12.7 mEq/L (5.0-15.0); Magnesium 1.5 mg/dL (1.6-2.4); Potassium 3.7 mEq/L (3.5-5.1)
[2023-05-28] MEDS ORDERED: FENTANYL CITR 100 MCG/2 ML ONE (21:20)
--- NOTE | 2023-05-28 22:27 | RAD REPORT ---
EXAM DESCRIPTION: CT - Chest For Pe Angio - 05/28/2023 10:16 pm CLINICAL HISTORY: Chest pain COMPARISON: February 2023 TECHNIQUE: Dynamically enhanced axial 3 mm thick images of the chest were obtained during administra tion of 100 mL Isovue 370 IV contrast. Coronal and oblique reconstruction images were generated and r eviewed. Exam utilizes a protocol for optimal evaluation of pulmonary arterial tree. Maximum intensity projections 3D imaging was utilized All CT scans are performed using dose optimization technique as appropriate and may include automated exposure control or mA/KV adjustment according to patient size. FINDINGS: Suboptimal opacification of the pulmonary arteries. No gross pulmonary embolus seen. A thoracic aortic aneurysm is not noted. A pleural effusion is not seen. A pericardial effusion is not seen. A lung consolidation is not present. Fatty liver IMPRESSION: Suboptimal opacification the pulmonary arteries. No gross pulmonary embolus seen
[2023-05-28] MEDS ORDERED: NA CHLORIDE 0.9% 1,000 ML ONE (22:35)
[2023-05-28] MEDS ORDERED: MAGNESIUM SULFATE 1 gm IVPB 1 GM/100 ML BAG IV ONE (22:35)
--- NOTE | 2023-05-28 23:01 | EDPHYS ---
Physician Documentation [facility] Name: Dean Rosenthal Age: 52 yrs Sex: Male : 1970 Arrival Date: 05/28/2023 Time: 19:15 Bed 5 Private MD: ED Physician Alva Chavez HPI: 05/27 22:21 This 52 yrs old Black Male presents to ER via Wheelchair with complaints of Chest Pain, kb Shortness Of Breath. 22:21 Patient is a 52-year-old male who presents for chest pain that started yesterday and kb resolved and came back today with shortness of breath. Denies cough, congestion, fever, nausea, vomiting, abdominal pain. States he also has right hip pain that has been ongoing since hip replacement in January. States he has been to his surgeon multiple times and was told everything looks fine.. Historical: - Allergies: 21:17 No Known Allergies; jb4 - PMHx: 21:17 Arthritis; High Cholesterol; osteoarthritis; Hypertension; GERD; Diabetes - NIDDM; jb4 - PSHx: 21:17 Left hip replacement; RECTAL ABSCESS; jb4 - Immunization history:: Adult Immunizations unknown. - Infectious Disease History:: Denies. - Social history:: Smoking status: Reported history of juuling and/or vaping. Patient uses alcohol, occasionally. Patient/guardian denies using street drugs. ROS: 22:21 Constitutional: As per HPI kb Exam: 22:21 Constitutional: This is a well developed, well nourished patient who is awake, alert, kb and in no acute distress. Head/Face: Normocephalic, atraumatic. ENT: Moist Mucous membranes Cardiovascular: Regular rate Respiratory: Respirations even and unlabored. No increased work of breathing. Talking in full sentences Abdomen/GI: Soft, non-tender. No distention Skin: Warm, dry with normal turgor. Normal color. MS/ Extremity: Pulses equal, no cyanosis. Neurovascular intact. Full, normal range of motion. Neuro: Awake and alert, GCS 15, oriented to person, place, time, and situation. Moves all extremities. Normal gait. Vital Signs: 19:32 BP 151 / 125; Pulse 109; Resp 20; Temp 97.3(TE); Pulse Ox 100% on R/A; Weight 113.4 kg km8 (R); Height 5 ft. 11 in. (R); Pain 11/26; 19:43 BP 121 / 75; km8 21:41 BP 134 / 84; Pulse 99; Resp 20; Pulse Ox 99% on R/A; jb4 22:46 BP 132 / 70; Pulse 104; Resp 20; Pulse Ox 98% on R/A; jb4 05/28 00:45 BP 117 / 79; Pulse 96; Resp 16; Pulse Ox 99% on R/A; jb4 05/27 19:32 Body Mass Index 34.87 (113.40 kg, 180.34 cm) km8 05/27 19:32 Pain Scale: Adult km8 MDM: 05/27 19:26 Patient medically screened. kb 22:22 Data reviewed: vital signs, nurses notes. kb 22:22 Differential diagnosis: abnormal EKG, acute myocardial infarction, coronary artery kb disease pulmonary embolus. The patient was given aspirin in the Emergency Department. 22:59 Consideration of Admission/Observation Patient was admitted/placed on observation. kb Escalation of care including admission/observation considered. Management of patient was discussed with the following: Hospitalist: Dr Peterson accepts pt for admission. Counseling: I had a detailed discussion with the patient and/or guardian regarding the historical points, exam findings, and any diagnostic results supporting the discharge/admit diagnosis, lab results, radiology results, the need for further work-up and treatment in the hospital. 05/27 19:30 Order name: Basic Metabolic Panel; Complete Time: 21:30 kb 05/27 19:30 Order name: CBC with Diff; Complete Time: 20:17 kb 05/27 19:30 Order name: Magnesium; Complete Time: 21:30 kb 05/27 19:30 Order name: NT PRO-BNP; Complete Time: 21:30 kb 05/27 19:30 Order name: Troponin HS; Complete Time: 21:30 kb 05/27 23:21 Order name: CBC with Automated Diff EDMS 05/27 23:21 Order name: CBC with Automated Diff EDMS 05/27 23:21 Order name: Comprehensive Metabolic Panel EDMS 05/27 23:21 Order name: Comprehensive Metabolic Panel EDMS 05/27 23:21 Order name: Troponin High Sensitivity EDMS 05/27 23:21 Order name: Troponin High Sensitivity EDMS 05/27 23:21 Order name: Troponin High Sensitivity [facility] 05/28 00:11 Order name: Glucose, Ancillary Testing; Complete Time: 00:12 EDMI 05/27 19:30 Order name: XRAY Chest (1 view); Complete Time: 20:34 kb 05/27 21:34 Order name: CT Chest For PE Angio; Complete Time: 22:35 kb 05/27 19:30 Order name: EKG; Complete Time: 19:31 kb 05/27 23:21 Order name: CONS Physician Consult EDMI 05/27 19:30 Order name: Cardiac monitoring; Complete Time: 19:42 kb 05/27 19:30 Order name: EKG - Nurse/Tech; Complete Time: 19:42 kb 05/27 19:30 Order name: IV Saline Lock; Complete Time: 19:56 kb 05/27 19:30 Order name: Labs collected and sent; Complete Time: 19:56 kb 05/27 19:30 Order name: O2 Per Protocol; Complete Time: 19:42 kb 05/27 19:30 Order name: O2 Sat Monitoring; Complete Time: 19:42 kb Administered Medications: 19:57 Drug: Aspirin PO Chewable Tablet 324 mg PO once; 81 mg tablets x 4 Route: PO; jw7 21:26 Drug: fentaNYL (PF) IVP 25 mcg IVP once Route: IVP; Site: right antecubital; 4 22:40 Drug: Magnesium Sulfate IVPB 1 grams IVPB once over 1 hrs Route: IVPB; Infused Over: 1 jb4 hrs; Site: right antecubital; 22:40 Drug: NS 0.9% IV 1000 ml IV at 1000 ml once Route: IV; Rate: 1000 ml; Site: right jb4 antecubital; Disposition Summary: 05/28/23 23:00 Hospitalization Ordered Notes: Hospitalization Status: Observation kb Provider: Mary Peterson Location: Telemetry/MedSurg (observation) kb Condition: Stable kb Problem: new kb Symptoms: are unchanged kb Bed/Room Type: Standard Room Assignment: 410(05/28/23 23:43) rv1 Diagnosis - Chest pain, unspecified kb Forms: - Medication Reconciliation Form kb - SBAR form kb - Leadership Thank You Letter kb Signatures: Dispatcher [employer] EDRosa Luis FNP-C FNP-Juvenal Love, RN RN jb4 Ramila Tay RN RN jw7 Patsy Henriquez rv1 Carolee Farias RN RN km8 Corrections: (The following items were deleted from the chart) 23:43 23:00 kb rv1
--- NOTE | 2023-05-28 23:01 | ER ---
Nurse's Notes [facility] Name: Dean Rosenthal Age: 52 yrs Sex: Male : 1970 Arrival Date: 05/28/2023 Time: 19:15 Bed 5 Private MD: Diagnosis: Chest pain, unspecified Presentation: 05/27 19:32 Chief complaint: Patient states: chest pain with SOB starting yesterday and getting km8 worse today. Coronavirus screen: Client denies travel out of the [place] in the last 14 days. Ebola Screen: No symptoms or risks identified at this time. Initial Sepsis Screen: Does the patient meet any 2 criteria? HR > 90 bpm. Does the patient have a suspected source of infection? No. Patient's initial sepsis screen is negative. Risk Assessment: Do you want to hurt yourself or someone else? Patient reports no desire to harm self or others. Onset of symptoms was May 27, 2023. 19:32 Method Of Arrival: Wheelchair km8 19:32 Acuity: DIANNA 2 km8 Triage Assessment: 19:32 General: Appears uncomfortable, Behavior is cooperative, drowsy, flat. Pain: Complains km8 of pain in mid-sternal area Pain radiates to back Pain currently is 10 out of 10 on a pain scale. Quality of pain is described as sharp, Pain began 1 day ago. Is continuous. EENT: No signs and/or symptoms were reported regarding the EENT system. Neuro: Level of Consciousness is awake, alert, obeys commands, Oriented to person, place, time, situation. Cardiovascular: Reports chest pain, shortness of breath, Patient's skin is warm and dry. Chest pain is described as severe, quality is sharp, is located in anterior chest wall radiates back began 1 day ago episodes are continuous. Respiratory: Airway is patent Respiratory effort is even, unlabored, Respiratory pattern is regular, symmetrical. GI: Abdomen is obese, Reports lower abdominal pain, upper abdominal pain. : No signs and/or symptoms were reported regarding the genitourinary system. Derm: No signs and/or symptoms reported regarding the dermatologic system. Skin is intact, is healthy with good turgor, Skin is dry, Skin is pink, warm \T\ dry. normal, Skin temperature is warm. Musculoskeletal: No signs and/or symptoms reported regarding the musculoskeletal system. Range of motion: intact in all extremities. Historical: - Allergies: 21:17 No Known Allergies; jb4 - PMHx: 21:17 Arthritis; High Cholesterol; osteoarthritis; Hypertension; GERD; Diabetes - NIDDM; jb4 - PSHx: 21:17 Left hip replacement; RECTAL ABSCESS; jb4 - Immunization history:: Adult Immunizations unknown. - Infectious Disease History:: Denies. - Social history:: Smoking status: Reported history of juuling and/or vaping. Patient uses alcohol, occasionally. Patient/guardian denies using street drugs. Screenin:21 [facility] ED Fall Risk Assessment (Adult) History of falling in the last 3 months, jb4 including since admission No falls in past 3 months (0 pts) Confusion or Disorientation No (0 pts) Intoxicated or Sedated No (0 pts) Impaired Gait No (0 pts) Mobility Assist Device Used No (0 pt) Altered Elimination No (0 pt) Score/Fall Risk Level 0 - 2 = Low Risk Oriented to surroundings, Maintained a safe environment. Abuse screen: Denies threats or abuse. Nutritional screening: No deficits noted. Tuberculosis screening: No symptoms or risk factors identified. Assessment: 20:21 General: Appears in no apparent distress. uncomfortable, Behavior is. Pain: Complains jb4 of pain in chest and right hip Pain does not radiate. Pain currently is 8 out of 10 on a pain scale. Quality of pain is described as pressure, stabbing. Neuro: Level of Consciousness is awake, alert, obeys commands, Oriented to person, place, time, situation. Cardiovascular: Patient's skin is warm and dry. Respiratory: Airway is patent Respiratory effort is even, unlabored, Respiratory pattern is regular, symmetrical. GI: No signs and/or symptoms were reported involving the gastrointestinal system. : No signs and/or symptoms were reported regarding the genitourinary system. EENT: No signs and/or symptoms were reported regarding the EENT system. Derm: Skin is healthy with good turgor, Skin is pink, warm \T\ dry. Musculoskeletal: Circulation, motion, and sensation intact. Range of motion: intact in all extremities. 21:41 Reassessment: Patient appears in no apparent distress at this time. Patient and/or jb4 family updated on plan of care and expected duration. Pain level reassessed. Patient is alert, oriented x 3, equal unlabored respirations, skin warm/dry/pink. 22:46 Reassessment: Patient appears in no apparent distress at this time. Patient and/or jb4 family updated on plan of care and expected duration. Pain level reassessed. Patient is alert, oriented x 3, equal unlabored respirations, skin warm/dry/pink. 05/28 00:00 Reassessment: Patient appears in no apparent distress at this time. Patient and/or jb4 family updated on plan of care and expected duration. Pain level reassessed. Patient is alert, oriented x 3, equal unlabored respirations, skin warm/dry/pink. 01:00 Reassessment: Patient appears in no apparent distress at this time. Patient and/or jb4 family updated on plan of care and expected duration. Pain level reassessed. Patient is alert, oriented x 3, equal unlabored respirations, skin warm/dry/pink. Vital Signs: 05/27 19:32 BP 151 / 125; Pulse 109; Resp 20; Temp 97.3(TE); Pulse Ox 100% on R/A; Weight 113.4 kg [facility] (R); Height 5 ft. 11 in. (R); Pain 10/10; 19:43 BP 121 / 75; km8 21:41 BP 134 / 84; Pulse 99; Resp 20; Pulse Ox 99% on R/A; jb4 22:46 BP 132 / 70; Pulse 104; Resp 20; Pulse Ox 98% on R/A; 4 05/28 00:45 BP 117 / 79; Pulse 96; Resp 16; Pulse Ox 99% on R/A; 4 05/27 19:32 Body Mass Index 34.87 (113.40 kg, 180.34 cm) [facility] 05/27 19:32 Pain Scale: Adult [facility] ED Course: 05/27 19:25 Patient arrived in ED. cp4 19:26 Rosa Stiles FNP-C is PHCP. kb 19:26 Alva Chavez is Attending Physician. kb 19:32 Arm band placed on right wrist. km8 19:33 Triage completed. km8 19:35 EKG done, by ED staff, reviewed by Rosa RIGGS. km8 19:41 XRAY Chest (1 view) In Process Unspecified. EDMS 19:56 Initial lab(s) drawn, by me, sent to lab. Inserted saline lock: 20 gauge in right cp4 forearm, using aseptic technique. Blood collected. 19:56 Basic Metabolic Panel Sent. cp4 19:56 CBC with Diff Sent. cp4 19:56 Magnesium Sent. cp4 19:57 NT PRO-BNP Sent. cp4 19:57 Troponin HS Sent. cp4 20:21 Juvenal Anderson, RN is Primary Nurse. jb4 20:21 Patient has correct armband on for positive identification. Placed in gown. Bed in low jb4 position. Call light in reach. Side rails up X 1. Provided Education on: plan of care. Client placed on continuous cardiac and pulse oximetry monitoring. NIBP monitoring applied. awake overnight monitor on. 22:18 CT Chest For PE Angio In Process Unspecified. EDMS 23:00 Mary Peterson MD is Hospitalizing Provider. kb 05/28 01:00 No provider procedures requiring assistance completed. Patient admitted, IV remains in jb4 place. Administered Medications: 05/27 19:57 Drug: Aspirin PO Chewable Tablet 324 mg PO once; 81 mg tablets x 4 Route: PO; jw7 21:26 Drug: fentaNYL (PF) IVP 25 mcg IVP once Route: IVP; Site: right antecubital; jb4 22:40 Drug: Magnesium Sulfate IVPB 1 grams IVPB once over 1 hrs Route: IVPB; Infused Over: 1 jb4 hrs; Site: right antecubital; 22:40 Drug: NS 0.9% IV 1000 ml IV at 1000 ml once Route: IV; Rate: 1000 ml; Site: right jb4 antecubital; Medication: 20:21 VIS not applicable for this client. jb4 Outcome: 23:00 Decision to Hospitalize by Provider. kb 05/28 01:00 Admitted to Tele accompanied by tech, via wheelchair, room 410, with chart, jb4 Condition: stable Discharge instructions given to patient, Instructed on the need for admit, Demonstrated understanding of instructions, 01:09 Patient left the ED. jb4 Signatures: Dispatcher [employer] EDMA Rosa Stiles, HAND ALTERATIONS SEAMSTRESS-C HAND ALTERATIONS SEAMSTRESS-Juvenal Love RN RN jb4 Ramila Tay RN RN 7 Mora Valentin 4 Jarrett, Carolee, RN RN km8
--- NOTE | 2023-05-28 23:10 | P.HP ---
Certification for Inpatient Patient admitted to: Observation With expected LOS: <2 Midnights Patient will require the following post-hospital care: None Practitioner: I am a practitioner with admitting privileges, knowledge of patient current condition, hospital course, and medical plan of care. Services: Services provided to patient in accordance with Admission requirements found in Title 42 Section 412.3 of the Code of Federal Regulations Patient History Date of Service: 05/29/23 Reason for admission: Chest pain History of Present Illness: 52-year-old with past medical history of hypertension/DM/HLD, recent right hip replacement surgery, presented to the hospital because of chest pain, right sided, onset was yesterday lasted for few minutes then resolved pain recurred again today and became associate with shortness of breath. He admits to some mild palpitation but denies any dizziness. He denies any fever chills or cough. He admits to mild shortness of breath with activity. He denies any nausea or vomiting. Chest pain is more of like pressure-like. He has never had any CAD or [place] in the past He is worried about his persistent rise hip and left knee pain. He is also complaining of some back pain. He states his right hip pain has been present before he underwent total hip replacement on that side 5 months ago postprocedure the pain still continues to worsen. He has been evaluated by his orthopedic surgeon who was assured him that everything was okay with the joint. He feels there is some abnormal bulge on that right hip whenever he ambulates. On arrival in the emergency room he was mildly tachycardic at 109, other vitals were stable, chest x-ray shows no acute infiltrate,. EKG shows sinus tachycardia with no ST segment changes. CTA of the lungs shows no evidence of pulmonary embolism, troponin was normal at 37, CBC as well as BMP were unremarkable except for creatinine of 1.36 and glucose at 410. Allergies No Known Allergies Allergy (Unverified 08/25/21 07:29) Home Medications: Atorvastatin Calcium [Lipitor] 40 mg PO BEDTIME 08/26/21 Cyclobenzaprine [Flexeril*] 10 mg PO TID PRN 08/26/21 Empagliflozin [Jardiance] 25 mg PO AC 08/26/21 Insulin Aspart [Novolog Flexpen] 10 units SQ TIDWM 08/26/21 Insulin Glargine,Hum.rec.anlog [Aura Francis] 50 units SQ AC 08/26/21 Metformin HCl [Glucophage*] 1,000 mg PO BID 08/26/21 Montelukast [Singulair*] 10 mg PO BEDTIME 08/26/21 Pantoprazole [Protonix Tab*] 40 mg PO DAILY 08/26/21 Pregabalin [Lyrica*] 75 mg PO BID 08/26/21 Hydrocodone 5/APAP 325 [[place] 5/325*] 1 tab PO Q6H PRN #15 tab 08/20/22 Acetaminophen with Codeine [Acetaminophen-Cod #4 Tablet] TID PRN 01/03/23 Amlodipine [Norvasc*] 5 mg PO DAILY 01/03/23 Fenofibrate [Tricor*] 145 mg PO DAILY 01/03/23 Sertraline [Zoloft*] 200 mg PO DAILY 01/03/23 Tramadol HCl [Ultram] 100 mg PO BID 01/03/23 predniSONE [Deltasone] 20 mg PO BID #20 tab 01/04/23 - Past Medical/Surgical History Diabetic: Yes -: Diabetes mellitus type 2insulin-dependent -: Hypertension -: Hyperlipidemia -: GERD -: Osteodegenerative arthritis -: sciatic nerve damage -: diverticulosis -: Hip replacement Psychosocial/ Personal History: Patient lives at home with his family, 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 Currently vapes) Alcohol use: Yes CD- Drugs: Yes Caffeine use: No Place of Residence: Home Review of Systems Respiratory: Shortness of Breath Cardiovascular: Chest Pain Musculoskeletal: Leg Pain, Other (Chronic hip pain, persistent post hip replacement) Physical Examination - Physical Exam General: Alert, In no apparent distress, Oriented x3, Cooperative HEENT: Atraumatic, Normocephalic, PERRLA Neck: Supple, 2+ carotid pulse no bruit, JVD not distended Respiratory: Clear to auscultation bilaterally, Normal air movement Cardiovascular: No edema, Normal pulses, Regular rate/rhythm, Normal S1 S2 Gastrointestinal: Normal bowel sounds, Soft and benign, Non-distended Musculoskeletal: No clubbing, No swelling Integumentary: No tenderness/swelling (Clean scar over right hip) Neurological: Normal gait - Studies Laboratory Data (last 24 hrs) 05/28/23 05/28/23 19:54 19:54 WBC 6.10 Hgb 13.6 Hct 40.4 Plt Count 317 Sodium 132 L Potassium 3.7 BUN 10 Creatinine 1.38 H Glucose 410 H* Magnesium 1.5 L Assessment and Plan - Plan Impression Atypical chest painright-sided, likely musculoskeletal Hypertension DM with hyperglycemia Chronic right hip pain Hypomagnesemia Hyponatremiamild, due to elevated glucose Plan Admit to observation Place in telemetry Continue serial sets of cardiac enzymes with troponin trend Sublingual nitro as needed, start aspirin Cardiology consult in a.m. although low likelihood of acute coronary syndrome since right-sided Elevated glucose, obtain home med and resume Insulin sliding scale with Accu-Cheks Right hip painstatus post ORIF, obtain PT and OT Pain control Gentle IV fluid with normal saline Mild creatinine elevation at 1.37, high risk for contrast nephropathy given CTA today May need nephrology consult Subcutaneous Lovenox for DVT prophylaxis - Advance Directives Does patient have a Living Will: No Does patient have a Durable POA for Healthcare: No
[2023-05-28] MEDS ORDERED: ALBUTEROL 2.5 MG/3 ML NEB SOL NEB PRN (23:14)
[2023-05-28] MEDS ORDERED: ONDANSETRON 4 MG/2 ML VIAL IV PRN (23:14)
[2023-05-28] MEDS ORDERED: HYDRALAZINE HCL 20 MG/ML VIAL IV PRN (23:17)
[2023-05-29] MEDS ORDERED: MORPHINE 2 MG/ML SYR ONE (00:55)
[2023-05-29] MEDS: MORPHINE 2 MG/ML SYR IV PRN (00:58)
[2023-05-29 01:45] VITALS: BMI 37.7
[2023-05-29] MEDS: Oxycodone HCl/Acetaminophen 5/325 MG TAB PO PRN (02:07)
[2023-05-29] MEDS: NA CHLORIDE 0.9% 1,000 ML IV SCH (02:07)
[2023-05-29] MEDS: LORAZEPAM 0.5 MG TABLET PO PRN (02:07)
[2023-05-29] MEDS: INSULIN REGULAR (HUMAN) 100 UNIT/ML SQ SCH (08:44)
[2023-05-29] MEDS: ASPIRIN EC 81 MG TAB PO SCH (08:45)
[2023-05-29] MEDS: ENOXAPARIN 40 MG/0.4 ML SQ SCH (08:45)
[2023-05-29 08:54] LABS: Absolute Basophils 0.1 K/uL (0-0.5); Absolute Eosinophils 0.1 K/uL (0-0.5); Absolute Lymphocytes (CBC) 1.6 K/uL (0.7-4.9); Absolute Monocytes 0.4 K/uL (0.1-1.3); Absolute Neutrophil 1.6 K/uL (1.8-8.0); Basophils % 1.4 % (0-1.3); Eosinophils % 3.2 % (0-4.4); Hematocrit 37.7 % (39.6-49.0); Hemoglobin 12.7 g/dL (13.6-17.9); Lymphocytes % 42.4 % (15.3-44.8); MCH 27.9 pg (27.0-35.0); MCHC 33.8 g/dL (32.0-36.0); MCV 82.6 fL (80-100); MPV 9.1 fL (7.6-11.3); Monocytes % 10.5 % (3.3-12.3); Neutrophils % 42.5 % (41.7-73.7); Nucleated Red Blood Cells % 0.1 % (0-0); Platelets 264 thou/uL (152-406); RBC Red Blood Cell Count 4.56 M/uL (4.33-5.43); Red Cell Distribution Width 14.8 % (12.1-15.2)
[2023-05-29 09:10] LABS: Albumin 3.5 g/dL (3.4-5.0); Albumin/Globulin Ratio 1.1 (1.1-1.8); Anion Gap 9.6 mEq/L (5.0-15.0); Bilirubin Total 0.4 mg/dL (0.2-1.0); Globulin 3.3 g/dL (2.3-3.5); Potassium 3.6 mEq/L (3.5-5.1); Protein, Total 6.8 g/dL (6.4-8.2)
[2023-05-29] MEDS ORDERED: ALBUTEROL 2.5 MG/3 ML NEB SOL NEB PRN (10:54)
--- NOTE | 2023-05-29 11:54 | P.PN ---
Subjective Date of Service: 05/29/23 Chief Complaint: Chest pain Pt is resting comfortably in bed. He complains of right chest wall pain that radiates to the back and also right hip pain. Troponin is negative. Likely musculoskeletal. CTA chest is negative for PE. No other complaints. Review of Systems General: Unremarkable Eyes: Unremarkable ENT: Unremarkable Respiratory: Unremarkable Cardiovascular: Chest Pain Gastrointestinal: Unremarkable Genitourinary: Unremarkable Musculoskeletal: Other (right hip pain) Integumentary: Unremarkable Neurological: Unremarkable Lymphatics: Unremarkable Physical Examination - Vital Signs Temperature: 97.0 F Blood Pressure: 130/74 Pulse: 97 Respirations: 16 Pulse Ox (%): 96 - Physical Exam General: Alert, In no apparent distress, Oriented x3 HEENT: Atraumatic, Normocephalic, PERRLA Neck: Supple, 2+ carotid pulse no bruit Respiratory: Clear to auscultation bilaterally, Normal air movement Cardiovascular: No edema, Normal pulses, Regular rate/rhythm, Normal S1 S2 Capillary refill: <2 Seconds Gastrointestinal: Normal bowel sounds, Soft and benign, Non-distended Musculoskeletal: No clubbing, No swelling, Other (right hip pain) Integumentary: No rashes, No breakdown Neurological: Normal gait, Normal speech, Normal strength at 5/5 x4 extr Lymphatics: No axilla or inguinal lymphadenopathy - Studies Laboratory Data (last 24 hrs) 05/28/23 05/28/23 19:54 19:54 WBC 6.10 Hgb 13.6 Hct 40.4 Plt Count 317 Sodium 132 L Potassium 3.7 BUN 10 Creatinine 1.38 H Glucose 410 H* Magnesium 1.5 L Assessment And Plan - Plan Atypical chest pain: Troponin is negative x 3. Will trend troponin. Continue TASH thereapy. Likely musculoskeletal. Consulted Cardiology. CTA chest is negative for PE. Chronic Right hip pain: Pt was advised to followup with his orthopedic surgeon Hypertension: Will continue home meds DM II: Continue accuchek, SSI and ADA diet. Hypomagnesemia: Will replete and monitor. Hyponatremia: Na is 132. Likely due to hyperglycemia. Will monitor. SABA: Cr is 1.38 <- 1.37. Will avoid nephrotoxins, continue IVF and monitor renal function Deconditioning: Pt ambulates with a walking cane. DVT ppx: lovenox Dispo: Pending hospital course
[2023-05-29] MEDS: NITROGLYCERIN 0.2 MG/HR (5 MG) PATCH TD SCH (12:50)
--- NOTE | 2023-05-29 14:20 | PN ---
Date of Progress Note: 05/29/2023 The patient was admitted to the hospital with the chest pain and acute kidney injury upon arrival to the hospital. Creatinine 1.3. Patient exposed to contrast. Patient was started on IV hydration. K idney function has been improved. DICTATION ENDS HERE. PATRICIO Voice ID: [id number] Report ID: [id number]
[2023-05-29 14:55] LABS: UR PROTEIN 12.1 mg/dL (<11.9); Urine Protein/Creatinine Ratio 0.09 ratio (<0.15)
--- NOTE | 2023-05-29 14:56 | CON ---
Date of Consultation: 05/29/2023 Reason For Consultation: Elevated BUN and creatinine. History Of Present Illness: This is a pleasant 52-year-old gentleman with significant past medical h istory of diabetes complicated with neuropathy, no retinopathy, hypertension, hyperlipidemia, osteoar thritis, status post hip replacement. Patient came to the hospital with the chest pain, right-sided. The patient had some shortness of breath on activity. Patient denied any previous CAD. Patient up on arrival to the hospital found to have elevation in creatinine 1.3. Patient on the workup for the chest pain had CT with contrast. IV fluid has been started. Blood sugar was elevated up to the 400. The patient denied any nausea, any vomiting. Patient using occasionally pain medication. Patient also found to have hypokalemia. Past Medical History: Includes: 1.Diabetes, complicated with neuropathy, no retinopathy. 2.Hypertension. 3.Hyperlipidemia. Allergies: NO KNOWN DRUGS ALLERGY. Home Medications: Include Jardiance, Flexeril, atorvastatin, metformin, Singulair, pantoprazole, Lyr ica, hydrocodone, fenofibrate, Zoloft, prednisone. Past Surgical History: Include hip replacement. Family History: Positive for diabetes and hypertension. Social History: Active smoker. Occasional alcohol. Denied drugs abuse. Review of Systems: Head and Neck: No red eye. No ear pain. GI: No nausea. No vomiting. : No polyuria. No dysuria. No hematuria. DELIVERY ASSOCIATE: Not applicable. Respiratory: No shortness of breath. Cardiovascular: Has chest pain. Endocrine: No polydipsia. Skin: No rash. Neuro: Has neuropathy. Musculoskeletal: Has joint pain. Has hip replacement. Physical Examination: Vital Signs: When I saw the patient, blood pressure 134/78, pulse of 92, afebrile. Chest: Clear to auscultation. Heart: S1, S2. Regular. Abdomen: Soft, nontender. Extremity: Trace edema. Neurologic: Alert. No focality. Laboratory Data: Hemoglobin 12.7, upon arrival to the hospital. Sodium 132, potassium 3.7, bicarb 2 2, BUN 10, creatinine 1.3. GFR of 62. Blood sugar 410, magnesium 1.5, calcium 9.5. Today lab data; sodium 133, potassium 3.6, bicarb 25, BUN 10, creatinine 0.9, calcium 8.8. Current Medications: The patient on, it includes Lovenox, albuterol, nitroglycerin, hydralazine p.r. n., Zofran, and insulin. IV fluid at 100 per hour. Assessment And Plan: 1.Acute kidney injury secondary to prerenal superimposed with contrast exposure, patient in the firs t 24 hours of contrast, kidney function trending down. I am going to continue IV hydration. Keep ho lding any SULMA inhibitor or ARB. Keep holding metformin for the time being given the exposure to cont rast and we will follow up. Advised the patient to avoid any nonsteroidal for pain control. Patient verbalized understanding. 2.Hyponatremia, dilutional. Corrected sodium above 135. Continue IV hydration. 3.Hypokalemia secondary to poor intake. We will supplement the patient. 4.Hypomagnesemia, we will supplement. We will repeat magnesium today. 5.Hypertension. The patient has diabetes. The patient will be a good candidate to add SULMA inhibito r or ARB after finishing 48 hours of contrast exposure and we will follow up. Thank you, Dr. Peterson, for allowing us to participate in the care of your patient. RENETTA/VALENTÍN Voice ID: [id number] Report ID: [id number]
--- NOTE | 2023-05-29 17:47 | EKG ---
Test Date: 2023-05-28 Test Time: 19:21:36 Vegetable Grader: HASEEB MEASUREMENT RESULTS: Intervals: Rate: 107 TN: 186 QRSD: 88 QT: 354 QTc: 472 [place]: P: 63 TN: 186 QRS: 34 T: 41 INTERPRETIVE STATEMENTS: Sinus tachycardia Otherwise normal ECG Compared to ECG 03/17/2023 20:29:29 Sinus rhythm no longer present Electronically Signed On 05-29-23 17:46:07 CDT by Mehrdad Cantu
[2023-05-29] MEDS ORDERED: GLUCAGON 1 MG/VIAL IM PRN (17:57)
[2023-05-29] MEDS ORDERED: D10W 250 ML BAG IV PRN (17:57)
[2023-05-29] MEDS: INSULIN GLARGINE 100 UNIT/ML SQ SCH (20:14)
[2023-05-29] MEDS: ACETAMINOPHEN 500 MG TAB PO PRN (21:28)
--- NOTE | 2023-05-29 21:48 | CON ---
Date of Consultation: 05/29/2023 Reason For Consultation: Chest pain. History Of Present Illness: 52-year-old male, history of diabetes, dyslipidemia, presented to the [facility] with chest discomfort with deep breath, along with cough and shortness of breath. The pain is with deep inspiration. No exertional chest pain. No other complaints. Past Medical History: As outlined above in the HPI. Medications: Refer to reconciliation sheet for detailed list. Allergies: NO KNOWN DRUG ALLERGIES. Family History: No premature coronary artery disease or cancer. Social History: Does not smoke or drink or use any drugs. Review of Systems: All systems reviewed and they were negative except as mentioned in the HPI. Physical Examination: Vital Signs: Reviewed. Head and Neck: Pupils are equal, reactive to light. Intact eye movements. No JVD. No cervical lym phadenopathy. Neck is supple. Thyroid is not enlarged. Lungs: Rhonchi bilaterally. No accessory muscle use or muscle retraction. Heart: Regular rate and rhythm. No extra sounds. Abdomen: Soft, nontender. Bowel sounds positive. No organomegaly. No masses or hernia. No rigidi ty or rebound. Extremities: No edema, clubbing, or cyanosis. Intact pulses. Skin: No rash. No nodule. Neurologic: Alert, awake, oriented x3. No acute focal deficits appreciated. Lymph Nodes: No cervical or axillary lymphadenopathy. Investigations: BUN is 10, creatinine 0.97. Cardiac enzymes x3 are negative. White blood cell coun t is 12.7, and CT of the chest showed no PE. Assessment And Recommendations: Chest pain, very atypical. It is with deep inspiration, likely infe ctious and pleuritic. Cardiac enzymes are negative. There is no need to do any further cardiac work up at present during this hospital stay except an echocardiogram. Given that cardiac enzymes are neg ative and his pain is atypical, I recommend outpatient evaluation with a stress test once his infecti on is completely cleared. Likely he has an acute bronchitis. SR/MODL Voice ID: [id number] Report ID: [id number]
[2023-05-30 07:06] LABS: Absolute Eosinophils 0.1 K/uL (0-0.5); Absolute Lymphocytes (CBC) 1.6 K/uL (0.7-4.9); Absolute Monocytes 0.8 K/uL (0.1-1.3); Absolute Neutrophil 4.9 K/uL (1.8-8.0); Basophils % 0.5 % (0-1.3); Eosinophils % 1.5 % (0-4.4); Hemoglobin 12.4 g/dL (13.6-17.9); Lymphocytes % 21.7 % (15.3-44.8); MCH 28.3 pg (27.0-35.0); MCHC 34.6 g/dL (32.0-36.0); MCV 81.9 fL (80-100); MPV 8.5 fL (7.6-11.3); Monocytes % 10.1 % (3.3-12.3); Neutrophils % 66.2 % (41.7-73.7); Nucleated Red Blood Cells % 0.1 % (0-0); Platelets 246 thou/uL (152-406); RBC Red Blood Cell Count 4.39 M/uL (4.33-5.43); Red Cell Distribution Width 14.6 % (12.1-15.2)
[2023-05-30 07:20] LABS: Albumin 3.3 g/dL (3.4-5.0); Albumin/Globulin Ratio 0.9 (1.1-1.8); Anion Gap 11.7 mEq/L (5.0-15.0); Bilirubin Total 0.5 mg/dL (0.2-1.0); Globulin 3.7 g/dL (2.3-3.5); Phosphorus 2.8 mg/dL (2.5-4.9); Potassium 3.7 mEq/L (3.5-5.1)
[2023-05-30] MEDS ORDERED: INSULIN GLARGINE 100 UNIT/ML SQ SCH (07:30)
--- NOTE | 2023-05-30 08:06 | P.PN ---
Subjective Date of Service: 05/30/23 Chief Complaint: Chest pain Subjective: No new changes (continued pain on inspiration, c/o headache.) <Farnaz Momin - Last Filed: 05/30/23 10:14> Date of Service: 05/30/23 <Audrey Nassar C - Last Filed: 05/30/23 13:07> Review of Systems 10-point ROS is otherwise unremarkable General: As per HPI Respiratory: Shortness of Breath, As per HPI Neurological: Other (headache) <Farnaz Momin - Last Filed: 05/30/23 10:14> Physical Examination - Vital Signs Temperature: 98.9 F Blood Pressure: 135/72 Pulse: 102 Respirations: 18 Pulse Ox (%): 97 - Physical Exam General: Alert, In no apparent distress, Oriented x3 HEENT: Atraumatic, Normocephalic Neck: JVD not distended Respiratory: Normal air movement Cardiovascular: Normal pulses, Regular rate/rhythm Capillary refill: <2 Seconds Gastrointestinal: Soft and benign Musculoskeletal: No swelling Integumentary: No breakdown Neurological: Normal speech, Normal tone Lymphatics: No axilla or inguinal lymphadenopathy External genitalia: Deferred Rectal: Deferred <Farnaz Momin - Last Filed: 05/30/23 10:14> Assessment And Plan - Plan Atypical chest pain: Troponin is negative x 3. Will trend troponin. Likely musculoskeletal. Consulted Cardiology. Recommends ECHO and then outpatient follow up. CTA chest is negative for PE. Chronic Right hip pain: Pt was advised to followup with his orthopedic surgeon, continue with cane ambulation Hypertension: Will continue home meds -(Amlodipine) Holding eugenio/arb while admitted, nephrology recommends eugenio or arb post 48 hours of contrast administration DM II: Continue accuchek, SSI and ADA diet. Maximize glucose control. Added Semglee. Hypomagnesemia: Will replete and monitor. Hyponatremia: Na is 132. Likely due to hyperglycemia. Will monitor. SABA: Cr is 1.38 <- 1.37. Will avoid nephrotoxins (stop metformin, NSAIDS), continue IVF and monitor renal function - improved to normal today, GFR from 60 to 98 today Deconditioning: Pt ambulates with a walking cane. DVT ppx: lovenox Dispo: Pending hospital course, needs f/u with Nephro/Cardio <Farnaz Momin - Last Filed: 05/30/23 10:14> - Plan Pt seen and examined. I agree with the note by the GAUGE AND WEIGH MACHINE ADJUSTER. Will dc if Echo is normal. No further cardiac work up. Pt was advised to follow up with his Orthopedic surgeon due to the right hip pain. <Audrey Nassar - Last Filed: 05/30/23 13:07>
[2023-05-30] MEDS: INSULIN LISPRO 100 UNIT/ML SQ SCH (09:04)
[2023-05-30] MEDS: GUAIFENESIN/DM 5 ML UCUP PO PRN (21:28)
[2023-05-31 01:21] VITALS: O2SAT 95
--- NOTE | 2023-05-31 04:03 | PN ---
Date of Progress Note: 05/30/2023 Chief Complaint: Elevated BUN and creatinine. History Of Present Illness: The patient is a 52-year-old man with past medical history complicated, diabetes. The patient has diabetic neuropathy. He denies diabetic retinopathy. The patient also baca s history of hypertension, hyperlipidemia, osteoarthritis, history of hip replacement. The patient p resented to the hospital because of chest pain, which was right-sided. The patient had some shortnes s of breath with activities. The patient denied any previous history of coronary artery disease. Th e patient upon arrival to the hospital was found to have elevated creatinine and high BUN/creatinine ratio. The patient underwent workup including CT scan with contrast. IV fluids were started after c ontrast procedure. Blood glucose was elevated up to 400. The patient denied dysuria, hematuria, inc omplete voiding. Past Medical History: Diabetes mellitus with neuropathy, no retinopathy. Hypertension, hyperlipidem ia. Review of Systems: The patient is feeling better. Pain is controlled. The patient is on pain medication. Physical Examination: General: Not in acute distress. Lungs: Clear to auscultation bilaterally. Heart: S1, S2. Abdomen: Soft. Extremities: Trace edema. Laboratory Data: Sodium 132, potassium 3.7, bicarbonate 22, BUN 10, creatinine 1.3, blood glucose 41 0, magnesium 1.5, calcium 9.5. Impression And Plan: 1.Acute secondary to prerenal azotemia and imposed with IV contrast exposure. The patien t will continue IV fluids. Monitor electrolytes. Adjust fluids according to the electrolyte panel. Continue to avoid SULMA inhibitor on angiotensin receptor heath. Metformin is on hold due to acute kidney injury. 2.Hyponatremia. Corrected sodium is 155. Continue IV fluids. 3.Hypokalemia. Continue treatment for hypokalemia. Monitor magnesium level and continue supplement ation according to lab results. 4.Hypertension. The patient currently cannot take SULMA inhibitor because of contrast exposure and ac peoria tubular necrosis. Monitor renal panel and continue IV hydration. EB/MODL Voice ID: [id number] Report ID: [id number]
[2023-05-31 05:24] LABS: Absolute Eosinophils 0.1 K/uL (0-0.5); Absolute Lymphocytes (CBC) 2.3 K/uL (0.7-4.9); Absolute Monocytes 0.7 K/uL (0.1-1.3); Absolute Neutrophil 1.7 K/uL (1.8-8.0); Basophils % 0.9 % (0-1.3); Eosinophils % 2.8 % (0-4.4); Hematocrit 34.6 % (39.6-49.0); Hemoglobin 11.9 g/dL (13.6-17.9); Lymphocytes % 47.9 % (15.3-44.8); MCH 28.2 pg (27.0-35.0); MCHC 34.5 g/dL (32.0-36.0); MCV 81.9 fL (80-100); MPV 8.8 fL (7.6-11.3); Monocytes % 13.7 % (3.3-12.3); Neutrophils % 34.7 % (41.7-73.7); Nucleated Red Blood Cells % 0.3 % (0-0); Platelets 240 thou/uL (152-406); RBC Red Blood Cell Count 4.23 M/uL (4.33-5.43); Red Cell Distribution Width 14.5 % (12.1-15.2)
[2023-05-31] MEDS: PANTOPRAZOLE 40MG TABLET PO SCH (05:32)
[2023-05-31 05:47] LABS: Albumin 3.2 g/dL (3.4-5.0); Albumin/Globulin Ratio 0.9 (1.1-1.8); Anion Gap 11.6 mEq/L (5.0-15.0); Bilirubin Total 0.4 mg/dL (0.2-1.0); Globulin 3.7 g/dL (2.3-3.5); Phosphorus 3.4 mg/dL (2.5-4.9); Potassium 3.6 mEq/L (3.5-5.1); Protein, Total 6.9 g/dL (6.4-8.2)
[2023-05-31] MEDS ORDERED: D50W 25 GM/50 ML SYRINGE IV PRN (08:22)
[2023-05-31] MEDS ORDERED: GLUCAGON 1 MG/VIAL IM PRN (08:22)
--- NOTE | 2023-05-31 12:52 | P.DS ---
Admission Date: 05/28/23 Discharge Date: 05/31/23 Disposition: ROUTINE DISCHARGE Discharge Condition: GOOD Reason for Admission: Chest pain Brief History of Present Illness: 52-year-old with past medical history of hypertension/DM/HLD, recent right hip replacement surgery, presented to the hospital because of chest pain, right sided, onset was yesterday lasted for few minutes then resolved pain recurred again today and became associate with shortness of breath. He admits to some mild palpitation but denies any dizziness. He denies any fever chills or cough. He admits to mild shortness of breath with activity. He denies any nausea or vomiting. Chest pain is more of like pressure-like. He has never had any CAD or NH in the past He is worried about his persistent rise hip and left knee pain. He is also complaining of some back pain. He states his right hip pain has been present before he underwent total hip replacement on that side 5 months ago postprocedure the pain still continues to worsen. He has been evaluated by his orthopedic surgeon who was assured him that everything was okay with the joint. He feels there is some abnormal bulge on that right hip whenever he ambulates. On arrival in the emergency room he was mildly tachycardic at 109, other vitals were stable, chest x-ray shows no acute infiltrate,. EKG shows sinus tachycardia with no ST segment changes. CTA of the lungs shows no evidence of pulmonary embolism, troponin was normal at 37, CBC as well as BMP were unremarkable except for creatinine of 1.36 and glucose at 410. Hospital Course: Pt is a 52 yo male with past medical history of hypertension/DM/HLD, recent right hip replacement surgery who presented with chest pain. The right sided chest pain radiated t the back and progressively worsened to be associated with SOB. Pt complained of right hip pain. We admitted pt to r/o EL. troponin was negative x 3. CTA of the lungs showed no evidence of pulmonary embolism. The chest pain resolved. Cardiology evaluated pt and recommended Echo. We advised pt to follow up with Cardiology in clinic within a week for Echo. Pt was also advised to follow with Orthopedic surgeon for evaluation of the right hip pain post surgery. SABA and hyponatremia resolved with IVF. We continued home med for other chronic medical problems. Pt was in NAD prior to discharge. Vital Signs/Physical Exam: Temp Pulse Resp BP Pulse Ox 98.0 F 91 H 19 126/67 94 05/31/23 08:00 05/31/23 08:00 05/31/23 08:00 05/31/23 08:00 05/31/23 08:00 Laboratory Data at Discharge: WBC 4.80 thou/uL (4.3-10.9) 05/31/23 04:37 Hgb 11.9 g/dL (13.6-17.9) L 05/31/23 04:37 Hct 34.6 % (39.6-49.0) L 05/31/23 04:37 Plt Count 240 thou/uL (152-406) 05/31/23 04:37 Sodium 135 mEq/L (136-145) L 05/31/23 04:21 Potassium 3.6 mEq/L (3.5-5.1) 05/31/23 04:21 BUN 3 mg/dL (7-18) L 05/31/23 04:21 Creatinine 0.86 mg/dL (0.70-1.30) 05/31/23 04:21 Glucose 302 mg/dL (74-106) H 05/31/23 04:21 Phosphorus 3.4 mg/dL (2.5-4.9) 05/31/23 04:21 Magnesium 1.5 mg/dL (1.6-2.4) L 05/28/23 19:54 Total Bilirubin 0.4 mg/dL (0.2-1.0) 05/31/23 04:21 AST 28 U/L (15-37) 05/31/23 04:21 ALT 43 U/L (16-61) 05/31/23 04:21 Alkaline Phosphatase 69 U/L (45-117) 05/31/23 04:21 Home Medications: Atorvastatin Calcium [Lipitor] 40 mg PO BEDTIME 08/26/21 Cyclobenzaprine [Flexeril*] 10 mg PO TID PRN 08/26/21 Empagliflozin [Jardiance] 25 mg PO AC 08/26/21 Insulin Aspart [Novolog Flexpen] 10 units SQ TIDWM 08/26/21 Insulin Glargine,Hum.rec.anlog [Toujeo Solostar] 50 units SQ AC 08/26/21 Metformin HCl [Glucophage*] 1,000 mg PO BID 08/26/21 Montelukast [Singulair*] 10 mg PO BEDTIME 08/26/21 Pantoprazole [Protonix Tab*] 40 mg PO DAILY 08/26/21 Pregabalin [Lyrica*] 75 mg PO BID 08/26/21 Acetaminophen with Codeine [Acetaminophen-Cod #4 Tablet] 300 mg PO TID PRN 01/03/23 Amlodipine [Norvasc*] 5 mg PO DAILY 01/03/23 Fenofibrate [Tricor*] 145 mg PO DAILY 01/03/23 Sertraline [Zoloft*] 200 mg PO DAILY 01/03/23 Tramadol HCl [Ultram] 100 mg PO BID 01/03/23 predniSONE [Prednisone*] 20 mg PO BID #20 tab 01/04/23 Albuterol Sulfate [Proair Digihaler] 90 mcg IH Q6HR PRN 05/29/23 Benzonatate [Tessalon Perle*] 100 mg PO TID 05/29/23 Buspirone HCl [Buspar] 10 mg PO TID 05/29/23 Codeine/APAP [Tylenol #3*] 1 tab PO Q6HP PRN 05/29/23 Daridorexant HCl [Quviviq] 25 mg PO BEDTIME 05/29/23 Famotidine 20 mg PO DAILY 05/29/23 Ketorolac [Toradol*] 10 mg PO Q8HR PRN 05/29/23 Meloxicam 7.5 mg PO DAILY 05/29/23 Ondansetron [Zofran (Odt)*] 4 mg PO Q6HR PRN 05/29/23 Sulfamethoxazole/Trimethoprim [Bactrim 400-80 mg Tablet] 1 each PO BID 05/29/23 Tirzepatide [Mounjaro] 5 mg SQ EVERY 7TH DAY 05/29/23 Tizanidine [Zanaflex*] 4 mg PO PRN PRN 05/29/23 methocarbamoL [Methocarbamol] 500 mg PO Q8HR PRN 05/29/23 metroNIDAZOLE [Flagyl*] 500 mg PO Q8HR 05/29/23 Physician Discharge Instructions: Continue ad gila activity. Continue home medications as prescribed. Follow up with Cardiology within 1 week for echocardiogram. Follow up with PCP and Orthopedic surgeon within 1 - 2 weeks Diet: AHA Activity: Ad gila Followup: Mehrdad Cantu MD [ACTIVE - CAN ADMIT] - Karina Coughlin NP [Primary Care Provider] -
[2023-05-31] MEDS: INSULIN LISPRO 100 UNIT/ML SQ SCH (13:19)
[2023-05-31 19:12] VITALS: BP 134/69; TEMP 97.6
[2023-05-31] MEDS ORDERED: INSULIN GLARGINE 100 UNIT/ML SQ SCH (20:30)
== END 2023-05-31 19:05 | disposition home or self-care (01) ==
LOC: ER 19:15 → ERHOLD 23:14 → 4TH 05-29 00:47
PROVIDERS: ADMIT Internal Medicine; ATTEND Hospitalist
DX: R07.89 Other chest pain (principal); I10 Essential (primary) hypertension; E78.5 Hyperlipidemia, unspecified; E11.65 Type 2 diabetes mellitus with hyperglycemia; M25.551 Pain in right hip; M25.562 Pain in left knee; M54.9 Dorsalgia, unspecified; E83.42 Hypomagnesemia; E87.1 Hypo-osmolality and hyponatremia; N17.9 Acute kidney failure, unspecified; E87.6 Hypokalemia; Z96.641 Presence of right artificial hip joint
CPT/HCPCS: 93005; 85025 ×4; 80048; 36415 ×3; 83735; 82947 ×12; 80069 ×2; 82570; 84484 ×3; 80053 ×3; 83880; 84156; 71275; 71045; 97535 ×2; 97116; 97161; 97165; 96375; 96374; 99285; Q9967; J1815 ×15; J3475; J1650 ×3; J3010; J2270 ×13; J7030 ×7; G0378

== ENCOUNTER 2024-01-21 13:36 | Emergency (ER) | payer OTHER, SELFPAY ==
[2024-01-21 14:38] LABS: Albumin 3.8 g/dL (3.4-5.0); Albumin/Globulin Ratio 0.9 (1.1-1.8); Anion Gap 11.6 mEq/L (5.0-15.0); Bilirubin Direct 0.2 mg/dL (0-0.2); Bilirubin Indirect, Calculated 0.3 mg/dL (0.2-0.8); Bilirubin Total 0.5 mg/dL (0.2-1.0); Globulin 4.3 g/dL (2.3-3.5); Potassium 3.6 mEq/L (3.5-5.1); Protein, Total 8.1 g/dL (6.4-8.2); Troponin High Sensitivity 42.1 pg/mL (<58.9)
[2024-01-21] MEDS ORDERED: MORPHINE 2 MG/ML SYR ONE (14:42)
[2024-01-21] MEDS ORDERED: ONDANSETRON 4 MG/2 ML VIAL ONE (14:42)
[2024-01-21] MEDS ORDERED: NA CHLORIDE 0.9% 1,000 ML ONE (14:42)
[2024-01-21 14:46] LABS: SARS-CoV-2 Antigen CONTROL BLUE LINE VIS/BG OK; SARS-CoV-2 Antigen Rapid Res Negative (Negative)
[2024-01-21 14:53] LABS: Absolute Basophils 0.1 K/uL (0-0.5); Absolute Eosinophils 0.1 K/uL (0-0.5); Absolute Monocytes 0.3 K/uL (0.1-1.3); Absolute Neutrophil 1.2 K/uL (1.8-8.0); Basophils % 1.8 % (0-1.3); Hematocrit 44.5 % (39.6-49.0); Hemoglobin 15.4 g/dL (13.6-17.9); Lymphocytes % 63.5 % (15.3-44.8); MCH 29.9 pg (27.0-35.0); MCHC 34.7 g/dL (32.0-36.0); MCV 86.3 fL (80-100); MPV 8.9 fL (7.6-11.3); Monocytes % 6.4 % (3.3-12.3); Neutrophils % 25.3 % (41.7-73.7); Nucleated Red Blood Cells % 0.2 % (0-0); Platelets 352 thou/uL (152-406); RBC Red Blood Cell Count 5.16 M/uL (4.33-5.43)
--- NOTE | 2024-01-21 15:40 | RAD REPORT ---
EXAMINATION: CT ABDOMEN AND PELVIS WITH CONTRAST CLINICAL INDICATION: Abdominal pain TECHNIQUE: CT abdomen and pelvis was performed, after the administration of 100 cc Isovue-300.. Sagit leslee and coronal reconstructions were obtained. One or more of the following dose reduction techniques were used: Automated exposure control, adjustment of the mA and kV according to patient si ze, and iterative reconstruction. Unless otherwise specified, incidental findings do not require dedicated imaging follow-up. [id number]. Oral contrast was not given which limits evaluation of bowel and appendix. COMPARISON: .2022 FINDINGS: Liver mildly to moderately enlarged. Fatty infiltration. Spleen, pancreas, adrenals and kidneys unremarkable Normal appendix. Diverticula stem from the colon. Minimal stranding adjacent to the distal ascending/proximal sigmoid colon. Prostate mildly enlarged. Small small inguinal hernias Bilateral hip arthroplasties. Moderate umbilical hernia : IMPRESSION: Minimal diverticulitis distal descending/proximal sigmoid colon Mild to moderate hepatomegaly with fatty infiltration
[2024-01-21 16:04] LABS: Differential Total Cells Count 100; Segmented Neutrophils 28 % (40-80)
[2024-01-21] MEDS ORDERED: metroNIDAZOLE 500 MG TABLET ONE (16:06)
--- NOTE | 2024-01-21 16:06 | ER ---
Nurse's Notes [facility] Name: Dean Rosenthal Age: 53 yrs Sex: Male : 1970 Arrival Date: 01/21/2024 Time: 13:36 Bed 12 Private MD: Diagnosis: Diverticulitis of intestine, part unspecified, without perforation or abscess without bleeding Presentation: 01/20 13:59 Chief complaint: Patient states: nausea, general weakness, fatigue , no fever , + iw chills X 3 days. Coronavirus screen: Client presents with at least one sign or symptom that may indicate coronavirus-19. Ebola Screen: No symptoms or risks identified at this time. Initial Sepsis Screen: Does the patient meet any 2 criteria? RR > 20 per min. Does the patient have a suspected source of infection?. Initial Sepsis Screen: Does the patient meet any 2 criteria? No. Patient's initial sepsis screen is negative. Risk Assessment: Do you want to hurt yourself or someone else? Patient reports no desire to harm self or others. Onset of symptoms was January 18, 2024. 13:59 Method Of Arrival: Wheelchair iw 13:59 Acuity: DIANNA 3 iw Historical: - Allergies: 14:01 No Known Allergies; iw - PMHx: 14:01 Arthritis; Diabetes - NIDDM; GERD; High Cholesterol; Hypertension; osteoarthritis; iw - PSHx: 14:01 Left hip replacement; RECTAL ABSCESS; iw - Immunization history:: Adult Immunizations not up to date. - Infectious Disease History:: Denies. - Social history:: Smoking status: Patient denies any tobacco usage or history of. Screenin:23 [facility] ED Fall Risk Assessment (Adult) History of falling in the last 3 months, jb4 including since admission No falls in past 3 months (0 pts) Confusion or Disorientation No (0 pts) Intoxicated or Sedated No (0 pts) Impaired Gait No (0 pts) Mobility Assist Device Used Yes (1 pt) Altered Elimination No (0 pt) Score/Fall Risk Level 0 - 2 = Low Risk Oriented to surroundings, Maintained a safe environment. Abuse screen: Denies threats or abuse. Nutritional screening: No deficits noted. Tuberculosis screening: No symptoms or risk factors identified. Assessment: 15:00 General: Appears in no apparent distress. comfortable, Behavior is calm, cooperative, jb4 appropriate for age. Pain: Complains of pain in abdomen Pain radiates to right lower quadrant and left lower quadrant Pain currently is 3 out of 10 on a pain scale. Neuro: Level of Consciousness is awake, alert, obeys commands, Oriented to person, place, time, situation. Cardiovascular: Patient's skin is warm and dry. Respiratory: Airway is patent Respiratory effort is even, unlabored, Respiratory pattern is regular, symmetrical. GI: Abdomen is non-distended, obese. Derm: Skin is intact, Skin is dry, Skin is normal, Skin temperature is warm. Musculoskeletal: Circulation, motion, and sensation intact. Range of motion: intact in all extremities. 16:23 Reassessment: Patient appears in no apparent distress at this time. Patient and/or jb4 family updated on plan of care and expected duration. Pain level reassessed. Patient is alert, oriented x 3, equal unlabored respirations, skin warm/dry/pink. Vital Signs: 13:59 BP 123 / 74; Pulse 90; Resp 16; Temp 98.9; Pulse Ox 100% on R/A; Weight 117.93 kg; iw Height 5 ft. 11 in. ; Pain 8/10; 13:59 Body Mass Index 36.26 (117.93 kg, 180.34 cm) iw 13:59 Pain Scale: Adult iw ED Course: 13:42 Patient arrived in ED. al6 13:43 Rosa Stiles FNP-C is PHCP. kb 13:43 uRben Duarte MD is Attending Physician. kb 14:01 Triage completed. iw 14:01 Arm band placed on. iw 14:13 Initial lab(s) drawn, by me, sent to lab. Inserted saline lock: 22 gauge in right iw forearm, using aseptic technique. Blood collected. Flushed with 10 mL NS. 14:33 Di Medina, RN is Primary Nurse. iw 15:19 CT Abd/Pelvis - IV Contrast Only In Process Unspecified. EDMS 16:08 XRAY Chest (1 view) In Process Unspecified. EDMS 16:23 Patient has correct armband on for positive identification. Bed in low position. Call jb4 light in reach. Side rails up X 1. Provided Education on: discharge instructions.. 16:23 No provider procedures requiring assistance completed. IV discontinued, intact, jb4 bleeding controlled, No redness/swelling at site. Pressure dressing applied. Administered Medications: 14:49 Drug: NS 0.9% IV 1000 ml IV at 1000 ml once; to be given as a bolus over 60 minutes iw Route: IV; Rate: 1000 ml; Site: right forearm; 16:11 Follow up: Response: No adverse reaction; IV Status: Pt discharged; IV Intake: 800ml jb4 14:49 Drug: Ondansetron IVP 4 mg IVP once; over 2 minutes Route: IVP; Site: right forearm; iw 16:11 Follow up: Response: No adverse reaction; Marked relief of symptoms jb4 14:49 Drug: morphine IVP or IV 2 mg IVP once over 4 mins Route: IVP; Infused Over: 4 mins; iw Site: right forearm; 16:11 Follow up: Response: No adverse reaction; Marked relief of symptoms jb4 16:10 Drug: Ciprofloxacin PO 500 mg PO once Route: PO; jb4 16:11 Follow up: Response: Medication administered at discharge. jb4 16:10 Drug: metroNIDAZOLE PO 500 mg PO once Route: PO; jb4 16:10 Follow up: Response: Medication administered at discharge. jb4 Medication: 16:23 VIS not applicable for this client. jb4 Intake: 16:11 IV: 800ml; Total: 800ml. jb4 Outcome: 16:06 Discharge ordered by . kb 16:23 Discharged to home via wheelchair, with family, jb4 16:23 Condition: stable 16:23 Discharge instructions given to patient, Instructed on discharge instructions, follow up and referral plans. medication usage, Demonstrated understanding of instructions, follow-up care, medications, Prescriptions given X 4, 16:24 Patient left the ED. jb4 Signatures: Dispatcher [employer] EDRosa Luis, LAWN CARE WORKER-C LAWN CARE WORKER-CkDi Kang, RN RN Juvenal Mcnair RN RN jb4 Elicia Palumbo
[2024-01-21] MEDS ORDERED: CIPROFLOXACIN HCL 500 MG TAB ONE (16:07)
--- NOTE | 2024-01-21 16:07 | EDPHYS ---
Physician Documentation [facility] Name: Dean Rosenthal Age: 53 yrs Sex: Male : 1970 Arrival Date: 01/21/2024 Time: 13:36 Bed 12 Private MD: ED Physician Ruben Duarte HPI: 01/20 13:49 This 53 yrs old Black Male presents to ER via Unassigned with complaints of Flu kb Symptoms, Nausea, Weakness. 13:49 Pt is a 53 year old male who presents for nausea, chest pain, shortness of breath, kb fatigue, weakness, bodyaches, chills that started 2 days ago. Denies cough, congestion, runny nose, sore throat. . Historical: - Allergies: 14:01 No Known Allergies; iw - PMHx: 14:01 Arthritis; Diabetes - NIDDM; GERD; High Cholesterol; Hypertension; osteoarthritis; iw - PSHx: 14:01 Left hip replacement; RECTAL ABSCESS; iw - Immunization history:: Adult Immunizations not up to date. - Infectious Disease History:: Denies. - Social history:: Smoking status: Patient denies any tobacco usage or history of. ROS: 13:49 Constitutional: As per HPI kb Exam: 14:28 Constitutional: This is a well developed, well nourished patient who is awake, alert, kb and in no acute distress. Head/Face: Normocephalic, atraumatic. ENT: Moist Mucous membranes Cardiovascular: Regular rate Respiratory: Respirations even and unlabored. No increased work of breathing. Talking in full sentences Skin: Warm, dry with normal turgor. Normal color. MS/ Extremity: Pulses equal, no cyanosis. Neurovascular intact. Full, normal range of motion. Neuro: Awake and alert, GCS 15, oriented to person, place, time, and situation. 14:28 ECG was reviewed by the Attending Physician. 15:00 Abdomen/GI: Inspection: abdomen appears normal, Bowel sounds: normal, Palpation: soft, kb in all quadrants, mild abdominal tenderness, in the right lower quadrant, moderate abdominal tenderness, in the right upper quadrant and left upper quadrant, Vital Signs: 13:59 BP 123 / 74; Pulse 90; Resp 16; Temp 98.9; Pulse Ox 100% on R/A; Weight 117.93 kg; iw Height 5 ft. 11 in. ; Pain 8/10; 13:59 Body Mass Index 36.26 (117.93 kg, 180.34 cm) iw 13:59 Pain Scale: Adult iw MDM: 13:43 Medical Screening Exam initiated kb 16:03 Differential diagnosis: flu, covid, colitis, gastroenteritis, diverticulitis. Data kb reviewed: vital signs, nurses notes. Consideration of Admission/Observation Escalation of care including admission/observation considered. admission considered but pt is feeling better, vss, minimal diverticulitis on CT. Educated on strict return precautions. Verbal understanding received. . Historians other than the Patient: Family Member: family member. Counseling: I had a detailed discussion with the patient and/or guardian regarding the historical points, exam findings, and any diagnostic results supporting the discharge/admit diagnosis, lab results, radiology results, the need for outpatient follow up, a family practitioner, to return to the emergency department if symptoms worsen or persist or if there are any questions or concerns that arise at home. 01/20 13:55 Order name: Basic Metabolic Panel; Complete Time: 14:43 kb 01/20 13:55 Order name: CBC with Diff; Complete Time: 16:15 kb 01/20 13:55 Order name: LFT's; Complete Time: 14:43 kb 01/20 13:55 Order name: Troponin HS; Complete Time: 14:43 kb 01/20 13:55 Order name: Lipase; Complete Time: 14:43 kb 01/20 13:55 Order name: Flu; Complete Time: 14:48 kb 01/20 13:55 Order name: SARS-COV-2 Antigen Rapid; Complete Time: 14:48 kb 01/20 15:56 Order name: Manual Differential; Complete Time: 16:15 EDMS 01/20 13:55 Order name: XRAY Chest (1 view) kb 01/20 14:59 Order name: CT Abd/Pelvis - IV Contrast Only; Complete Time: 15:45 kb 01/20 13:55 Order name: Cardiac monitoring; Complete Time: 14:49 kb 01/20 13:55 Order name: EKG - Nurse/Tech; Complete Time: 14:33 kb 01/20 13:55 Order name: IV Saline Lock; Complete Time: 14:33 kb 01/20 13:55 Order name: Labs collected and sent; Complete Time: 14:33 kb 01/20 13:55 Order name: O2 Per Protocol; Complete Time: 14:33 kb 01/20 13:55 Order name: O2 Sat Monitoring; Complete Time: 14:33 kb EC:28 Rate is 85 beats/min. Rhythm is regular. QRS [place] is Normal. MI interval is normal at kb 188 msec. QRS interval is normal at 104 msec. QT interval is normal at 459 msec. Administered Medications: 14:49 Drug: NS 0.9% IV 1000 ml IV at 1000 ml once; to be given as a bolus over 60 minutes iw Route: IV; Rate: 1000 ml; Site: right forearm; 16:11 Follow up: Response: No adverse reaction; IV Status: Pt discharged; IV Intake: 800ml jb4 14:49 Drug: Ondansetron IVP 4 mg IVP once; over 2 minutes Route: IVP; Site: right forearm; iw 16:11 Follow up: Response: No adverse reaction; Marked relief of symptoms jb4 14:49 Drug: morphine IVP or IV 2 mg IVP once over 4 mins Route: IVP; Infused Over: 4 mins; iw Site: right forearm; 16:11 Follow up: Response: No adverse reaction; Marked relief of symptoms jb4 16:10 Drug: Ciprofloxacin PO 500 mg PO once Route: PO; jb4 16:11 Follow up: Response: Medication administered at discharge. jb4 16:10 Drug: metroNIDAZOLE PO 500 mg PO once Route: PO; jb4 16:10 Follow up: Response: Medication administered at discharge. jb4 Disposition Summary: 01/21/24 16:06 Discharge Ordered Notes: Location: Home kb Condition: Stable kb Diagnosis - Diverticulitis of intestine, part unspecified, without perforation or abscess kb without bleeding Followup: kb - With: Emergency Department - When: As needed - Reason: Worsening of condition Followup: kb - With: Private Physician - When: 2 - 3 days - Reason: Recheck today's complaints, Continuance of care, Re-evaluation by your physician Discharge Instructions: - Discharge Summary Sheet kb - Diverticulitis, [id number] kb Forms: - Medication Reconciliation Form kb - Antibiotic Education kb - Prescription Opioid Use kb - Patient Portal Instructions kb - Leadership Thank You Letter kb Prescriptions: - Flagyl 500 mg Oral Tablet - take 1 tablet ORAL route every 8 hours for 10 days; 30 tablet; Refills: 0, kb Product Selection Permitted - Zofran 4 mg Oral tablet - take 1 tablet ORAL route every 6 hours As needed; 20 tablet; Refills: 0, kb Product Selection Permitted - Cipro 500 mg Oral tablet - take 1 tablet ORAL route every 12 hours for 10 days; 20 tablet; Refills: 0, kb Product Selection Permitted - Diclofenac Sodium 75 mg Oral tablet, delayed release (enteric coated) - take 1 tablet ORAL route 2 times per day As needed; 30 tablet; Refills: 0, kb Product Selection Permitted Signatures: Dispatcher [employer] EDMS Rosa Stiles, KITCHEN DESIGNER-C KITCHEN DESIGNER-CkDi Kang, RN RN iw Juvenal Anderson, SANA RN jb4 Corrections: (The following items were deleted from the chart) 13:55 13:55 BASIC METABOLIC PANEL+C.LAB.BRZ ordered. EDMS EDMS 13:55 13:55 CBC+H.LAB.BRZ ordered. EDMS EDMS 13:55 13:55 HEPATIC FUNCTION+C.LAB.BRZ ordered. EDMS EDMS 13:55 13:55 Troponin High Sensitivity+C.LAB.BRZ ordered. EDMS EDMS 13:55 13:55 LIPASE+C.LAB.BRZ ordered. EDMS EDMS 13:55 13:55 Influenza Screen (A \T\ B)+BA.LAB.BRZ ordered. EDMS EDMS 13:55 13:55 SARS-COV-2 Antigen Rapid+I.LAB.BRZ ordered. EDMS EDMS 13:55 13:55 Chest Single View+RAD.RAD.BRZ ordered. EDMS EDMS 15:00 14:28 Constitutional: This is a well developed, well nourished patient who is awake, kb alert, and in no acute distress. Head/Face: Normocephalic, atraumatic. ENT: Moist Mucous membranes Cardiovascular: Regular rate Respiratory: Respirations even and unlabored. No increased work of breathing. Talking in full sentences Abdomen/GI: Soft, non-tender. No distention Skin: Warm, dry with normal turgor. Normal color. MS/ Extremity: Pulses equal, no cyanosis. Neurovascular intact. Full, normal range of motion. Neuro: Awake and alert, GCS 15, oriented to person, place, time, and situation. kb
[2024-01-21 16:12] LABS: Atypical Lymphocytes 2 %; Eosinophils 3 % (0-3); Lymphocytes 60 % (15-42); Monocytes 7 % (0-10)
[2024-01-21 16:14] LABS: Blood Morphology Comment NOT SEEN (NOT SEEN); Platelet Estimate ADEQ
--- NOTE | 2024-01-21 16:28 | RAD REPORT ---
Procedure: Chest Single View HISTORY: Chest pain COMPARISON: May 2023 FINDINGS: The lungs appear clear of acute infiltrate. No significant pleural effusion noted. The heart is normal size. IMPRESSION: No acute abnormality is displayed.
[2024-01-21 21:58] VITALS: BP 123/74; TEMP 98.9; O2SAT 100
== END 2024-01-21 16:24 | disposition home or self-care (01) ==
LOC: ER 13:36
DX: K57.32 Diverticulitis of large intestine without perforation or abscess without bleeding (principal)
CPT/HCPCS: 36415; 71045; 74177; 80048; 80076; 83690; 84484; 85025; 87804; 87811; 96361; 96374; 96375; 99284; J2270; J2405; J7030; Q9967

== ENCOUNTER 2024-05-11 23:41 | Inpatient (IN) | payer SELFPAY ==
[2024-05-12] MEDS ORDERED: ONDANSETRON 4 MG/2 ML VIAL ONE (00:19)
[2024-05-12] MEDS ORDERED: DIAZEPAM 5 MG TABLET ONE ×2 (00:20→05:25)
[2024-05-12] MEDS ORDERED: MORPHINE 2 MG/ML SYR ONE ×3 (00:20→16:05)
[2024-05-12 00:31] LABS: Absolute Basophils 0.1 K/uL (0-0.5); Absolute Eosinophils 0.2 K/uL (0-0.5); Absolute Lymphocytes (CBC) 2.9 K/uL (0.7-4.9); Absolute Monocytes 0.4 K/uL (0.1-1.3); Absolute Neutrophil 1.8 K/uL (1.8-8.0); Basophils % 1.2 % (0-1.3); Eosinophils % 3.4 % (0-4.4); Hematocrit 41.4 % (39.6-49.0); Hemoglobin 14.7 g/dL (13.6-17.9); Lymphocytes % 54.4 % (15.3-44.8); MCH 30.3 pg (27.0-35.0); MCHC 35.5 g/dL (32.0-36.0); MCV 85.3 fL (80-100); MPV 9.3 fL (7.6-11.3); Monocytes % 8.1 % (3.3-12.3); Neutrophils % 32.9 % (41.7-73.7); Nucleated Red Blood Cells % 0.3 % (0-0); Platelets 285 thou/uL (152-406); RBC Red Blood Cell Count 4.85 M/uL (4.33-5.43); Red Cell Distribution Width 13.3 % (12.1-15.2)
[2024-05-12 00:49] LABS: PT Prothrombin Time 11.9 SECONDS (10-13.0); Protime INR 1.05
[2024-05-12 00:51] LABS: ALT/SGPT 56 U/L (16-61); AST/SGOT 27 U/L (15-37); Albumin 3.5 g/dL (3.4-5.0); Albumin/Globulin Ratio 0.9 (1.1-1.8); Alkaline Phosphatase 81 U/L (45-117); Anion Gap 12.5 mEq/L (5.0-15.0); BUN Blood Urea Nitrogen 10 mg/dL (7-18); Bicarbonate 24 mEq/L (21-32); Bilirubin Total 0.4 mg/dL (0.2-1.0); Globulin 3.9 g/dL (2.3-3.5); Glomerular Filtration Rate 82 ml/min (=/>90); Glucose Level 299 mg/dL (74-106); Magnesium 1.8 mg/dL (1.6-2.4); NT PRO-BNP 19 pg/mL (<125); Potassium 3.5 mEq/L (3.5-5.1); Protein, Total 7.4 g/dL (6.4-8.2); Sodium Level 134 mEq/L (136-145); Troponin High Sensitivity 53.6 pg/mL (<58.9)
[2024-05-12 00:58] LABS: Bilirubin Direct < 0.2 mg/dL (0-0.2); Bilirubin Indirect, Calculated 0.2 mg/dL (0.2-0.8)
[2024-05-12] MEDS ORDERED: MORPHINE 4 MG/ML SYR ONE (03:59)
[2024-05-12] MEDS ORDERED: ENOXAPARIN 100 MG/ML SYR SQ ONE (05:24)
[2024-05-12] MEDS ORDERED: ASPIRIN 81 MG CHEWABLE TABLET ONE (05:25)
--- NOTE | 2024-05-12 05:55 | RAD REPORT ---
EXAM DESCRIPTION: Chest Single View CLINICAL HISTORY: CHEST PAIN COMPARISON: 12/02/2022 FINDINGS: 1 view(s) of the chest. Tubes and lines: None. Cardiomediastinal silhouette: Normal size and contour. Lungs: No consolidation, pneumothorax, or pleural effusion. Bones: No acute osseous abnormality. Upper abdomen: No abnormality identified. IMPRESSION: 1. No acute pulmonary process identified. Electronically signed by: Rell Puente DO 05/12/2024 01:33 AM CDT 4ZDM Due to temporary technical issues with the PACS/GEOLID reporting system, reports are being vj d by the in-house radiologist without review as a courtesy to ensure prompt reporting the interpreting radiologist is fully responsible for the content of the report. Transcribed Date/Time: 05/12/2024 5:55 AM
--- NOTE | 2024-05-12 07:15 | EDPHYS ---
Physician Documentation [facility] Name: Dean Rosenthal Age: 53 yrs Sex: Male : 1970 Arrival Date: 05/11/2024 Time: 23:41 Bed 4 Private MD: ED Physician Sheldon Rees HPI: 05/11 23:52 This 53 yrs old Black Male presents to ER via Unassigned with complaints of chest pain .sp4 05/12 07:02 53-year-old male presents with complaint of chest pain after he found his brother sp4 at home. Reports midsternal chest pain associated with shortness of breath. Historical: - PMHx: 00:34 Arthritis; Diabetes - NIDDM; GERD; High Cholesterol; Hypertension; osteoarthritis; br2 - Immunization history:: Adult Immunizations up to date. - Infectious Disease History:: Denies. - Social history:: Smoking status: Reported history of juuling and/or vaping. Patient uses alcohol, occasionally. - Family history:: not pertinent. ROS: 07:02 Constitutional: Negative for fever, chills, and weight loss, positive for acute onset sp4 chest pain 07:02 All other systems are negative, Exam: 07:02 Constitutional: This is a well developed, well nourished patient who is awake, alert, sp4 and in no acute distress. Head/Face: Normocephalic, atraumatic. Eyes: Pupils equal round and reactive to light, extra-ocular motions intact. Lids and lashes normal. Conjunctiva and sclera are not injected. Cornea within normal limits. Periorbital areas with no swelling, redness, or edema. ENT: Nares patent. No nasal discharge, no septal abnormalities noted. Tympanic membranes are normal and external auditory canals are clear. Oropharynx with no redness, swelling, or masses, exudates, or evidence of obstruction, uvula midline. Mucous membranes moist. Neck: Trachea midline, no thyromegaly or masses palpated, and no cervical lymphadenopathy. Supple, full range of motion without nuchal rigidity, or vertebral point tenderness. Chest/axilla: Normal chest wall appearance and motion. Nontender with no deformity. No lesions are appreciated. Cardiovascular: Regular rate and rhythm with a normal S1 and S2. No gallops, murmurs, or rubs. Normal PMI, no JVD. No pulse deficits. Respiratory: Lungs have equal breath sounds bilaterally, clear to auscultation and percussion. No rales, rhonchi or wheezes noted. No increased work of breathing, no retractions or nasal flaring. Abdomen/GI: Soft, with normal bowel sounds. No distension or tympany. No guarding or rebound. No evidence of tenderness throughout. Back: No spinal tenderness. No costovertebral tenderness. Skin: Warm, dry with normal turgor. Normal color with no rashes, no lesions, and no evidence of cellulitis. MS/ Extremity: Pulses equal, no cyanosis. Neurovascular intact. Full, normal range of motion. Neuro: Awake and alert, GCS 15, oriented to person, place, time, and situation. Cranial nerves II-XII grossly intact. Motor strength 5/5 in all extremities. Sensory grossly intact. Psych: Awake, alert, with orientation to person, place and time. Behavior, mood, and affect are within normal limits 07:02 ECG was reviewed by the Attending Physician. EKG 2355 Vital Signs: 00:32 BP 159 / 101; Pulse 99; Resp 19; Temp 97.4(O); Pulse Ox 98% on R/A; Weight 117.93 kg; br2 Height 5 ft. 11 in. ; Pain 8/10; 05:00 BP 145 / 82; Pulse 82; ll1 05:45 BP 127 / 78; Pulse 80; ll1 07:10 BP 131 / 83; Pulse 78; Resp 18; Pulse Ox 98% on R/A; ll1 00:32 Body Mass Index 36.26 (117.93 kg, 180.34 cm) br2 00:32 Pain Scale: Adult br2 Claus Coma Score: 07:02 Eye Response: spontaneous(4). Motor Response: obeys commands(6). Verbal Response: sp4 oriented(5). Total: 15. MDM: 00:13 Medical Screening Exam initiated sp4 07:11 Differential diagnosis: acute myocardial infarction, acute pericarditis, anxiety, sp4 coronary artery disease chest wall pain, congestive heart failure. HEART Score: History: Moderately Suspicious (1), ECG: Normal (0), Age: > 45 and < 65 years (1), Risk Factors: > or = 3 Risk factors for atherosclerotic disease (2), Troponin: > 1 and < 3 x normal limit (1), Total Score = 5. The patient was given aspirin in the Emergency Department. Data reviewed: vital signs, nurses notes, EMS record, old medical records, lab test result(s), EKG, radiologic studies, plain films. ED course: EXAM DESCRIPTION: Chest Single View CLINICAL HISTORY: CHEST PAIN COMPARISON: 12/02/2022 FINDINGS: 1 view(s) of the chest. Tubes and lines: None. Cardiomediastinal silhouette: Normal size and contour. Lungs: No consolidation, pneumothorax, or pleural effusion. Bones: No acute osseous abnormality. Upper abdomen: No abnormality identified. IMPRESSION: 1. No acute pulmonary process identified. . 05/11 23:53 Order name: Basic Metabolic Panel; Complete Time: 03:52 sp4 05/11 23:53 Order name: CBC with Diff; Complete Time: 03:52 sp4 05/11 23:53 Order name: LFT's; Complete Time: 03:52 sp4 05/11 23:53 Order name: Magnesium; Complete Time: 03:52 sp4 05/11 23:53 Order name: NT PRO-BNP; Complete Time: 03:52 sp4 05/11 23:53 Order name: PT-INR; Complete Time: 03:52 sp4 05/11 23:53 Order name: Troponin HS; Complete Time: 03:52 sp4 05/12 03:53 Order name: Troponin High Sensitivity; Complete Time: 05:01 sp4 05/12 07:21 Order name: T4 Free EDFL 05/12 07:21 Order name: Thyroid Stimulating Hormone EDFL 05/12 07:21 Order name: Basic Metabolic Panel EDFL 05/12 07:21 Order name: Basic Metabolic Panel EDMS 05/12 07:21 Order name: CBC with Automated Diff EDMS 05/12 07:21 Order name: CBC with Automated Diff EDMS 05/12 07:21 Order name: Lipid Profile EDMS 05/12 07:21 Order name: Lipid Profile EDMS 05/12 07:21 Order name: Magnesium EDMS 05/12 07:21 Order name: Magnesium EDMS 05/12 07:21 Order name: Phosphorus EDMS 05/12 07:21 Order name: Phosphorus EDMS 05/12 07:21 Order name: Troponin High Sensitivity EDMS 05/12 07:21 Order name: Troponin High Sensitivity EDMS 05/12 07:21 Order name: Troponin High Sensitivity [facility] 05/12 15:09 Order name: Glucose, Ancillary Testing EDFL 05/11 23:53 Order name: XRAY Chest (1 view) [facility] 05/11 23:53 Order name: Cardiac monitoring; Complete Time: 00: [facility] 05/11 23:53 Order name: EKG - Nurse/Tech; Complete Time: 00: [facility] 05/11 23:53 Order name: IV Saline Lock; Complete Time: 00: [facility] 05/11 23:53 Order name: Labs collected and sent; Complete Time: 00: 4 05/11 23:53 Order name: O2 Per Protocol; Complete Time: : [facility] 05/11 23:53 Order name: O2 Sat Monitoring; Complete Time: : EC/25 23:55 Rate is 93 beats/min. Rhythm is regular, Normal Sinus Rhythm. QRS [place] is Normal. DC sp4 interval is normal. QRS interval is normal. QT interval is normal. No Q waves. T waves are Normal. No ST changes noted. Clinical impression: No evidence of ischemia. Interpreted by me. Reviewed by me. Administered Medications: 05/12 00:25 Drug: Ondansetron IVP 4 mg IVP once; over 2 minutes Route: IVP; Site: right forearm; br2 01:00 Follow up: Response: No adverse reaction br2 00:26 Drug: Diazepam PO 10 mg PO once Route: PO; br2 00:26 Drug: morphine IVP or IV 2 mg IVP once over 4 mins Route: IVP; Infused Over: 4 mins; br2 Site: right forearm; 01:00 Follow up: Response: No adverse reaction br2 04:15 Drug: morphine IVP or IV 4 mg IVP once over 4 mins Route: IVP; Infused Over: 4 mins; br2 Site: right antecubital; 05:00 Follow up: Response: No adverse reaction br2 05:15 Drug: Aspirin PO Chewable Tablet 324 mg PO once; 81 mg tablets x 4 Route: PO; br2 05:45 Follow up: Response: No adverse reaction br2 05:15 Drug: Enoxaparin Sub-Q 1 mg/kg Sub-Q once Route: Sub-Q; Site: right lower abdomen; br2 05:45 Follow up: Response: No adverse reaction br2 05:15 Drug: Diazepam PO 5 mg PO once Route: PO; br2 05:45 Follow up: Response: No adverse reaction br2 Disposition Summary: 05/12/24 07:15 Hospitalization Ordered Notes: Hospitalization Status: Inpatient Admission sp4 Provider: Dany Laureano spGuerrero Condition: Stable sp4 Problem: new sp4 Symptoms: have improved sp4 Bed/Room Type: Standard sp4 Location: Telemetry/MedSurg (Inpatient)(05/12/24 15:56) bd Room Assignment: 213(05/12/24 15:56) bd Diagnosis - NSTEMI sp4 Forms: - Medication Reconciliation Form sp4 - SBAR form sp4 - Leadership Thank You Letter sp4 Signatures: Dispatcher [employer] EDMS SocorrojonathonElif Lee, [employer]ICER-C [employer]IC[employer]-Cla1 Sheldon Rees MD MD sp4 Suzanne Tompkins RN RN br2 Corrections: (The following items were deleted from the chart) 05/11 23:53 23:53 BASIC METABOLIC PANEL+C.LAB.BRZ ordered. EDMS EDMS 23:53 23:53 CBC+H.LAB.BRZ ordered. EDMS EDMS 23:53 23:53 HEPATIC FUNCTION+C.LAB.BRZ ordered. EDMS EDMS 23:54 23:53 MAGNESIUM+C.LAB.BRZ ordered. EDMS EDMS 23:54 23:53 PROBNP+C.LAB.BRZ ordered. EDMS EDMS 23:54 23:53 PROTIME (+INR)+COAG.LAB.BRZ ordered. EDMS EDMS 23:54 23:53 Troponin High Sensitivity+C.LAB.BRZ ordered. EDMS EDMS 23:54 23:54 Chest Single View+RAD.RAD.BRZ ordered. EDMS EDMS 05/12 03:53 03:53 Troponin High Sensitivity+C.LAB.BRZ ordered. EDMS EDMS 08:53 07:15 Telemetry/MedSurg (Inpatient) sp4 bd 08:53 07:15 sp4 bd 15:56 08:53 [facility] ER HOLD bd bd 15:56 08:53 ERHOLD- bd bd
--- NOTE | 2024-05-12 07:15 | ER ---
Nurse's Notes [facility] Name: Dean Rosenthal Age: 53 yrs Sex: Male : 1970 Arrival Date: 05/11/2024 Time: 23:41 Bed 4 Private MD: Diagnosis: NSTEMI Presentation: 05/12 00:32 Chief complaint: Patient states: PT STATES HE BEGAN HAVING MID-STERNAL CP AFTER FINDING br2 HIS BROTHER . Coronavirus screen: Client denies travel out of the [place] in the last 14 days. Ebola Screen: Patient denies exposure to infectious person. Initial Sepsis Screen: Does the patient meet any 2 criteria? No. Patient's initial sepsis screen is negative. Does the patient have a suspected source of infection? No. Patient's initial sepsis screen is negative. Risk Assessment: Do you want to hurt yourself or someone else? Patient reports no desire to harm self or others. Onset of symptoms was May 11, 2024 at 22:00. 00:32 Method Of Arrival: EMS: [facility] br2 00:32 Acuity: DIANNA 3 br2 Triage Assessment: 00:34 General: Appears uncomfortable, Behavior is calm, cooperative. Pain: Complains of pain br2 in right clavicle, left clavicle, anterior aspect of right upper chest and anterior aspect of left upper chest Pain currently is 8 out of 10 on a pain scale. Historical: - PMHx: 00:34 Arthritis; Diabetes - NIDDM; GERD; High Cholesterol; Hypertension; osteoarthritis; br2 - Immunization history:: Adult Immunizations up to date. - Infectious Disease History:: Denies. - Social history:: Smoking status: Reported history of juuling and/or vaping. Patient uses alcohol, occasionally. - Family history:: not pertinent. Screenin:32 [facility] ED Fall Risk Assessment (Adult) History of falling in the last 3 months, br2 including since admission No falls in past 3 months (0 pts) Confusion or Disorientation No (0 pts) Intoxicated or Sedated No (0 pts) Impaired Gait No (0 pts) Mobility Assist Device Used No (0 pt) Altered Elimination No (0 pt) Score/Fall Risk Level 0 - 2 = Low Risk Oriented to surroundings. Abuse screen: Denies threats or abuse. Denies injuries from another. Nutritional screening: No deficits noted. Tuberculosis screening: No symptoms or risk factors identified. Assessment: 00:32 Reassessment: SEE TRIAGE ASSESSMENT. br2 07:19 Reassessment: Patient and/or family updated on plan of care and expected duration. Pain ll1 level reassessed. moved to exam #4, NSTEMI admit. Vital Signs: 00:32 BP 159 / 101; Pulse 99; Resp 19; Temp 97.4(O); Pulse Ox 98% on R/A; Weight 117.93 kg; br2 Height 5 ft. 11 in. ; Pain 8/10; 05:00 BP 145 / 82; Pulse 82; ll1 05:45 BP 127 / 78; Pulse 80; ll1 07:10 BP 131 / 83; Pulse 78; Resp 18; Pulse Ox 98% on R/A; ll1 00:32 Body Mass Index 36.26 (117.93 kg, 180.34 cm) br2 00:32 Pain Scale: Adult br2 Claus Coma Score: 07:02 Eye Response: spontaneous(4). Motor Response: obeys commands(6). Verbal Response: sp4 oriented(5). Total: 15. ED Course: 05/11 23:47 Patient arrived in ED. rv1 23:51 Sheldon Rees MD is Attending Physician. sp4 05/12 00:25 Suzanne Tompkins, SANA is Primary Nurse. br2 00:26 Basic Metabolic Panel Sent. br2 00:26 CBC with Diff Sent. br2 00:26 LFT's Sent. br2 00:26 Magnesium Sent. br2 00:26 NT PRO-BNP Sent. br2 00:26 PT-INR Sent. br2 00:26 Troponin HS Sent. br2 00:28 XRAY Chest (1 view) In Process Unspecified. EDMS 00:32 Maintain EMS IV. Dressing intact. Good blood return noted. Site clean \T\ dry. Gauge \T\ br 2 site: 20G RIGHT AC. Flushed with 10 mL NS. 00:32 Allergy band placed. Bed in low position. Call light in reach. Side rails up X 1. br2 Provided Education on: PLAN OF CARE. 00:34 Triage completed. br2 07:13 Olegario Loera is Hospitalizing Provider. sp4 07:14 Hospitalizing Provider role handed off by Olegario Loera sp4 07:14 Dany Laureano PA is Hospitalizing Provider. sp4 08:01 Primary Nurse role handed off by Suzanne Tompkins RN bd 09:44 Jessica Del Rio RN is Primary Nurse. ph Administered Medications: 00:25 Drug: Ondansetron IVP 4 mg IVP once; over 2 minutes Route: IVP; Site: right forearm; br2 01:00 Follow up: Response: No adverse reaction br2 00:26 Drug: Diazepam PO 10 mg PO once Route: PO; br2 00:26 Drug: morphine IVP or IV 2 mg IVP once over 4 mins Route: IVP; Infused Over: 4 mins; br2 Site: right forearm; 01:00 Follow up: Response: No adverse reaction br2 04:15 Drug: morphine IVP or IV 4 mg IVP once over 4 mins Route: IVP; Infused Over: 4 mins; br2 Site: right antecubital; 05:00 Follow up: Response: No adverse reaction br2 05:15 Drug: Aspirin PO Chewable Tablet 324 mg PO once; 81 mg tablets x 4 Route: PO; br2 05:45 Follow up: Response: No adverse reaction br2 05:15 Drug: Enoxaparin Sub-Q 1 mg/kg Sub-Q once Route: Sub-Q; Site: right lower abdomen; br2 05:45 Follow up: Response: No adverse reaction br2 05:15 Drug: Diazepam PO 5 mg PO once Route: PO; br2 05:45 Follow up: Response: No adverse reaction br2 Outcome: 07:15 Decision to Hospitalize by Provider. sp4 16:47 Patient left the ED. ll1 Signatures: Dispatcher [employer] EDMS Elif Leblanc Patricia, Jose Kam RN, ph, RN RN ll1 Patsy Henriquez Sergey, MD MD sp4 Suzanne Tompkins RN RN br2 Corrections: (The following items were deleted from the chart) 06:07 06:04 Reassessment: SEE TRIAGE ASSESSMENT br2 br2
[2024-05-12] MEDS ORDERED: SODIUM CHLORIDE 0.9% 10ML INJ IV PRN (07:20)
--- NOTE | 2024-05-12 07:32 | P.HP ---
Certification for Inpatient Patient admitted to: Observation With expected LOS: <2 Midnights Patient will require the following post-hospital care: None Practitioner: I am a practitioner with admitting privileges, knowledge of patient current condition, hospital course, and medical plan of care. Services: Services provided to patient in accordance with Admission requirements found in Title 42 Section 412.3 of the Code of Federal Regulations Patient History Date of Service: 05/12/24 Reason for admission: Chest pain r/o, NSTEMI History of Present Illness: Dean Rosenthal is a 53 year old male with Pmhx Arthritis; Diabetes - NIDDM; GERD; High Cholesterol; Hypertension; osteoarthritis, anxiety who presents to the ED with chest pain and SOB after finding his brother at home. Troponin from 53 to 75 trending up, EKG negative for ST changes, chest pain has continued through out the night in the ED and seems to be reproducible. He reports having GERD and is belching during examination. Laboratory evaluation significant for troponin trend 53/66/75, sodium 134, serum glucose 299, GFR 82. Chest x-ray reports" No acute pulmonary process identified." Dean will be admitted to hospitalist service for further evaluation of chest pain r/o, Dr. Perez consulted. Allergies No Known Allergies Allergy (Unverified 08/25/21 07:29) Home Medications: Atorvastatin Calcium [Lipitor] 40 mg PO BEDTIME 08/26/21 Cyclobenzaprine [Flexeril*] 10 mg PO TID PRN 08/26/21 Empagliflozin [Jardiance] 25 mg PO AC 08/26/21 Insulin Aspart [Novolog Flexpen] 10 units SQ TIDWM 08/26/21 Insulin Glargine,Hum.rec.anlog [Toujeo Solostar] 50 units SQ AC 08/26/21 Metformin HCl [Glucophage*] 1,000 mg PO BID 08/26/21 Montelukast [Singulair*] 10 mg PO BEDTIME 08/26/21 Pantoprazole [Protonix Tab*] 40 mg PO DAILY 08/26/21 Pregabalin [Lyrica*] 75 mg PO BID 08/26/21 Acetaminophen with Codeine [Acetaminophen-Cod #4 Tablet] 300 mg PO TID PRN 01/03/23 Amlodipine [Norvasc*] 5 mg PO DAILY 01/03/23 Fenofibrate [Tricor*] 145 mg PO DAILY 01/03/23 Sertraline [Zoloft*] 200 mg PO DAILY 01/03/23 Tramadol HCl [Ultram] 100 mg PO BID 01/03/23 predniSONE [Prednisone*] 20 mg PO BID #20 tab 01/04/23 Albuterol Sulfate [Proair Digihaler] 90 mcg IH Q6HR PRN 05/29/23 Benzonatate [Tessalon Perle*] 100 mg PO TID 05/29/23 Buspirone HCl [Buspar] 10 mg PO TID 05/29/23 Codeine/APAP [Tylenol #3*] 1 tab PO Q6HP PRN 05/29/23 Daridorexant HCl [Quviviq] 25 mg PO BEDTIME 05/29/23 Famotidine 20 mg PO DAILY 05/29/23 Ketorolac [Toradol*] 10 mg PO Q8HR PRN 05/29/23 Meloxicam 7.5 mg PO DAILY 05/29/23 Ondansetron [Zofran (Odt)*] 4 mg PO Q6HR PRN 05/29/23 Sulfamethoxazole/Trimethoprim [Bactrim 400-80 mg Tablet] 1 each PO BID 05/29/23 Tirzepatide [Mounjaro] 5 mg SQ EVERY 7TH DAY 05/29/23 Tizanidine [Zanaflex*] 4 mg PO PRN PRN 05/29/23 methocarbamoL [Methocarbamol] 500 mg PO Q8HR PRN 05/29/23 metroNIDAZOLE [Flagyl*] 500 mg PO Q8HR 05/29/23 - Past Medical/Surgical History Diabetic: Yes -: Diabetes mellitus type 2insulin-dependent -: Hypertension -: Hyperlipidemia -: GERD -: Osteodegenerative arthritis -: sciatic nerve damage -: diverticulosis -: Hip replacement Psychosocial/ Personal History: Patient lives at home 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 his family, 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 - Family History Mother -: Hypertension, Diabetes - Social History Smoking Status: Current every day smoker (vaping) Alcohol use: Yes CD- Drugs: Yes Caffeine use: No Review of Systems Other: per HPI Physical Examination - Physical Exam General: Alert, In no apparent distress, Oriented x3 HEENT: Atraumatic, Normocephalic, PERRLA Neck: 2+ carotid pulse no bruit Respiratory: Clear to auscultation bilaterally, Normal air movement Cardiovascular: Normal pulses, Regular rate/rhythm, Normal S1 S2 Gastrointestinal: Normal bowel sounds, Soft and benign Musculoskeletal: No clubbing Integumentary: No rashes Neurological: Normal speech, Normal tone - Studies Laboratory Data (last 24 hrs) 05/12/24 05/12/24 05/12/24 00:16 00:16 00:16 WBC 5.30 Hgb 14.7 Hct 41.4 Plt Count 285 PT 11.9 INR 1.05 Sodium 134 L Potassium 3.5 BUN 10 Creatinine 1.09 Glucose 299 H Magnesium 1.8 Total Bilirubin 0.4 AST 27 ALT 56 Alkaline Phosphatase 81 Assessment and Plan - Plan Assessment and plan Chest pain rule out - EKG: No obvious ST segment changes - troponin 53/66/77- trending up - Ordered transthoracic echocardiogram - chest x-ray "" No acute pulmonary process identified." - Consult Cardiology - recommend stress test in the AM - NPO after midnight for a stress test - S/P aspirin 324 mg PO x 1 in ED - Start daily baby aspirin and statin - Symptom control with PRN acetaminophen and morphine - continuous telemetry - TSH/FreeT4, A1C, lipid panel pending - Full dose lovenox Diabetes - NIDDM -Accucheck with SSI -Serum glucose 299 GERD -IV protonix High Cholesterol Hypertension osteoarthritis anxiety -Continue home medications as appropriate to treatment Substance abuse -Vaping cessation education provided DVT ppx full dose lovenox Full code LOS 24 hour OBS Discharge Plan: Home Plan to discharge in: 24 Hours - Advance Directives Does patient have a Living Will: No Does patient have a Durable POA for Healthcare: No
[2024-05-12] MEDS: PANTOPRAZOLE 40 MG INJ IVP SCH (09:00)
[2024-05-12] MEDS: ASPIRIN EC 81 MG TAB PO SCH (09:00)
[2024-05-12] MEDS: MORPHINE 2 MG/ML SYR IV PRN (09:46)
[2024-05-12] MEDS: NA CHLORIDE 0.9% 1,000 ML IV SCH (10:00)
[2024-05-12] MEDS ORDERED: PANTOPRAZOLE 40 MG INJ ONE (11:21)
[2024-05-12] MEDS ORDERED: NA CHLORIDE 0.9% 1,000 ML ONE (11:21)
--- NOTE | 2024-05-12 11:55 | P.CNS ---
Date of Consult: 05/12/24 Chief Complaint: Chest pain r/o, NSTEMI History of Present Illness: Patient th [facility] of HTN, HLD, NIDDM, presented with chest pain sudden onset after he found his brother , dneis any prior episodes in the past, pain is like pressure, mid chest, no radiation, worse with breathing, no other symptoms. Allergies No Known Allergies Allergy (Unverified 08/25/21 07:29) Home medications list reviewed: Yes Home Medications: Atorvastatin Calcium [Lipitor] 40 mg PO BEDTIME 08/26/21 Cyclobenzaprine [Flexeril*] 10 mg PO TID PRN 08/26/21 Empagliflozin [Jardiance] 25 mg PO AC 08/26/21 Insulin Aspart [Novolog Flexpen] 10 units SQ TIDWM 08/26/21 Insulin Glargine,Hum.rec.anlog [Toujeo Solostar] 50 units SQ AC 08/26/21 Metformin HCl [Glucophage*] 1,000 mg PO BID 08/26/21 Montelukast [Singulair*] 10 mg PO BEDTIME 08/26/21 Pantoprazole [Protonix Tab*] 40 mg PO DAILY 08/26/21 Pregabalin [Lyrica*] 75 mg PO BID 08/26/21 Acetaminophen with Codeine [Acetaminophen-Cod #4 Tablet] 300 mg PO TID PRN 12/18 09/08 Amlodipine [Norvasc*] 5 mg PO DAILY 01/03/23 Fenofibrate [Tricor*] 145 mg PO DAILY 01/03/23 Sertraline [Zoloft*] 200 mg PO DAILY 01/03/23 Tramadol HCl [Ultram] 100 mg PO BID 01/03/23 predniSONE [Prednisone*] 20 mg PO BID #20 tab 01/04/23 Albuterol Sulfate [Proair Digihaler] 90 mcg IH Q6HR PRN 05/29/23 Benzonatate [Tessalon Perle*] 100 mg PO TID 05/29/23 Buspirone HCl [Buspar] 10 mg PO TID 05/29/23 Codeine/APAP [Tylenol #3*] 1 tab PO Q6HP PRN 05/29/23 Daridorexant HCl [Quviviq] 25 mg PO BEDTIME 05/29/23 Famotidine 20 mg PO DAILY 05/29/23 Ketorolac [Toradol*] 10 mg PO Q8HR PRN 05/29/23 Meloxicam 7.5 mg PO DAILY 05/29/23 Ondansetron [Zofran (Odt)*] 4 mg PO Q6HR PRN 05/29/23 Sulfamethoxazole/Trimethoprim [Bactrim 400-80 mg Tablet] 1 each PO BID 05/29/23 Tirzepatide [Mounjaro] 5 mg SQ EVERY 7TH DAY 05/29/23 Tizanidine [Zanaflex*] 4 mg PO PRN PRN 05/29/23 methocarbamoL [Methocarbamol] 500 mg PO Q8HR PRN 05/29/23 metroNIDAZOLE [Flagyl*] 500 mg PO Q8HR 05/29/23 - Past Medical/Surgical History Diabetic: Yes -: Diabetes mellitus type 2insulin-dependent -: Hypertension -: Hyperlipidemia -: GERD -: Osteodegenerative arthritis -: sciatic nerve damage -: diverticulosis -: Hip replacement Psychosocial/ Personal History: 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 moist/pink, EOMI, Sclerae nonicteric Neck: Supple, 2+ carotid pulse no bruit, No LAD, Without JVD or thyroid abnormality Respiratory: Clear to auscultation bilaterally, Normal air movement Cardiovascular: Regular rate/rhythm, Normal S1 S2 Gastrointestinal: Normal bowel sounds, No tenderness Musculoskeletal: No tenderness Integumentary: No rashes Neurological: Normal gait, Normal speech, Normal tone, Normal affect Lymphatics: No axilla or inguinal lymphadenopathy Laboratory Data (last 24 hrs) 05/12/24 05/12/24 05/12/24 00:16 00:16 00:16 WBC 5.30 Hgb 14.7 Hct 41.4 Plt Count 285 PT 11.9 INR 1.05 Sodium 134 L Potassium 3.5 BUN 10 Creatinine 1.09 Glucose 299 H Magnesium 1.8 Total Bilirubin 0.4 AST 27 ALT 56 Alkaline Phosphatase 81 - Problems (1) Chest pain Current Visit: Yes Status: Acute Plan: although atypical but patient got multiple risk factors for CAD with mild elevated cardiac enzymes continue to trend troponin until peak and down trending NPO after midnight for nuclear stress test in am (Lexiscan) ASA 81 mg daily Lipitor 40 mg daily (2) HTN (hypertension) Current Visit: Yes Status: Acute Plan: resume and continue patient home medications. (3) HLD (hyperlipidemia) Current Visit: Yes Status: Acute Plan: continue lipitor 40 mg daily
[2024-05-12 14:32] VITALS: BMI 36.2
[2024-05-12] MEDS: ENOXAPARIN 100 MG/ML SYR SQ SCH (17:01)
[2024-05-12] MEDS ORDERED: GLUCAGON 1 MG/VIAL IM PRN (18:10)
[2024-05-12] MEDS ORDERED: D10W 125 ML IV PRN (18:10)
[2024-05-12] MEDS: FLU (Fluarix Triv) TS24-25(6MOS UP)/PF 45 MCG/0.5 ML Syringe IM ONE (18:15)
[2024-05-12] MEDS: INSULIN REGULAR (HUMAN) 100 UNIT/ML SQ SCH (21:00)
[2024-05-12] MEDS: ATORVASTATIN 40 MG TAB PO SCH (21:09)
[2024-05-12] MEDS ORDERED: ONDANSETRON 4 MG (ODT) TAB PO PRN (21:42)
[2024-05-12] MEDS ORDERED: CYCLOBENZAPRINE 10 MG TAB PO PRN (21:42)
[2024-05-12] MEDS ORDERED: HOME MED 1 EA UNK (Acetaminophen With Codeine [Acetaminophen-Cod #4 Tablet] Tablet) PO PRN (21:42)
[2024-05-12] MEDS ORDERED: methocarbamoL 500 MG TAB PO PRN (21:42)
[2024-05-12] MEDS ORDERED: HOME MED 1 EA UNK (Albuterol Sulfate [Proair Digihaler] 90 MCG Aer.Pw.Bas) IH PRN (21:42)
[2024-05-12] MEDS ORDERED: TIZANIDINE 4 MG TABLET PO PRN (21:42)
[2024-05-12] MEDS ORDERED: CODEINE 30MG/APAP 300MG TAB PO PRN (21:42)
[2024-05-12] MEDS: MELATONIN 3 MG TABLET PO PRN (21:53)
[2024-05-12] MEDS: ZOLPIDEM TARTRATE 5 MG TABLET PO PRN (22:11)
[2024-05-13] MEDS: HOME MED 1 EA UNK (Empagliflozin [Jardiance] 25 MG Tablet) PO SCH (07:30)
[2024-05-13 08:13] LABS: Absolute Basophils 0.1 K/uL (0-0.5); Absolute Eosinophils 0.3 K/uL (0-0.5); Absolute Lymphocytes (CBC) 3.1 K/uL (0.7-4.9); Absolute Monocytes 0.4 K/uL (0.1-1.3); Absolute Neutrophil 1.3 K/uL (1.8-8.0); Eosinophils % 5.3 % (0-4.4); Hematocrit 38.9 % (39.6-49.0); Hemoglobin 13.8 g/dL (13.6-17.9); Lymphocytes % 61.3 % (15.3-44.8); MCH 30.4 pg (27.0-35.0); MCHC 35.5 g/dL (32.0-36.0); MCV 85.7 fL (80-100); Monocytes % 7.3 % (3.3-12.3); Neutrophils % 25.1 % (41.7-73.7); Nucleated Red Blood Cells % 0.1 % (0-0); Platelets 258 thou/uL (152-406); RBC Red Blood Cell Count 4.54 M/uL (4.33-5.43); Red Cell Distribution Width 13.1 % (12.1-15.2)
[2024-05-13 08:36] LABS: Anion Gap 9.9 mEq/L (5.0-15.0); BUN Blood Urea Nitrogen 9 mg/dL (7-18); Bicarbonate 27 mEq/L (21-32); Glomerular Filtration Rate 98 ml/min (=/>90); Glucose Level 235 mg/dL (74-106); HDL Cholesterol 28 mg/dL (40-60); Phosphorus 3.7 mg/dL (2.5-4.9); Sodium Level 137 mEq/L (136-145); Thyroid Stimulating Hormone 0.646 uIU/mL (0.358-3.740)
[2024-05-13 08:40] LABS: Magnesium 1.8 mg/dL (1.6-2.4); Potassium 3.9 mEq/L (3.5-5.1)
[2024-05-13 08:51] LABS: LDL, Direct 64 mg/dL (100-129)
--- NOTE | 2024-05-13 08:51 | ECHO ---
HEIGHT: 5 ft 11 in WEIGHT: 259 lb 15.858 oz DATE OF STUDY: 05/12/[address]: Davina Higginbotham NP 2-DIMENSIONAL: YES M.MODE: YES DOPPLER: YES COLOR FLOW: YES TDS: YES PORTABLE: YES DEFINITY: BUBBLE STUDY: DIAGNOSIS: CHEST PAIN CARDIAC HISTORY: CATHERIZATION: NO SURGERY: NO PROSTHETIC VALVE: NO PACEMAKER: NO MEASUREMENTS (cm) DIASTOLIC (NORMALS) SYSTOLIC (NORMALS) IVSd 1.2 (0.6-1.2) LA Diam 3.7 (1.9-4.0) LVEF 60-65% LVIDd 4.4 (3.5-5.7) LVIDs 3.0 (2.0-3.5) %FS 32% LVPWd 1.3 (0.6-1.2) Ao Diam 3.2 (2.0-3.7) 2 DIMENSIONAL ASSESSMENT: RIGHT ATRIUM: NORMAL LEFT ATRIUM: NORMAL RIGHT VENTRICLE: NORMAL LEFT VENTRICLE: NORMAL TRICUSPID VALVE: NORMAL MITRAL VALVE: NORMAL PULMONIC VALVE: NORMAL AORTIC VALVE: NORMAL PERICARDIAL EFFUSION: NONE AORTIC ROOT: NORMAL LEFT VENTRICULAR WALL MOTION: NORMAL DOPPLER/COLOR FLOW: NORMAL COMMENTS: 1. NORMAL LEFT VENTRICULAR SYSTOLIC FUNCTION, EJECTION FRACTION 60-65%, NORMAL WALL MOTION 2. NORMAL DIASTOLIC FUNCTION TECHNOLOGIST: KIM CHURCHILL
[2024-05-13] MEDS ORDERED: PANTOPRAZOLE 40MG TABLET PO SCH (09:00)
[2024-05-13] MEDS: MELOXICAM 7.5 MG TAB PO SCH (09:02)
[2024-05-13] MEDS: SERTRALINE HCL 100 MG TAB PO SCH (09:02)
[2024-05-13] MEDS: TRAMADOL HCL 50 MG TAB PO SCH (09:03)
[2024-05-13] MEDS: predniSONE 20 MG TAB PO SCH (09:03)
[2024-05-13] MEDS: FENOFIBRATE 160 MG TAB PO SCH (09:03)
[2024-05-13] MEDS: AMLODIPINE 5 MG TAB PO SCH (09:03)
[2024-05-13] MEDS: BENZONATATE 100 MG CAP PO SCH (09:04)
[2024-05-13] MEDS: BUSPIRONE HCL 5 MG TABLET PO SCH (09:04)
[2024-05-13] MEDS: PREGABALIN 75 MG CAP PO SCH (09:04)
[2024-05-13 10:00] LABS: Differential Total Cells Count 100; Segmented Neutrophils 33 % (40-80)
[2024-05-13 10:01] LABS: Atypical Lymphocytes 11 %; Blood Morphology Comment NOT SEEN (NOT SEEN); Eosinophils 10 % (0-3); Lymphocytes 38 % (15-42); Monocytes 6 % (0-10); Platelet Estimate ADEQ
[2024-05-13] MEDS ORDERED: REGADENOSON 0.4 MG/5 ML SYR IV ONE (10:14)
--- NOTE | 2024-05-13 10:53 | RAD REPORT ---
EXAM: Nuclear medicine cardiac perfusion examination with ejection fraction HISTORY: Chest pain chest pain r/o TECHNIQUE: Rest images: 9.8 mCi technetium 99m sestamibi Stress images: 28.0 mCi of technetium 99m sestamibi COMPARISON: None. FINDINGS: Tomographic images: No fixed or reversible perfusion defects. No finding to suspect hibernating myocardium. Ejection fraction of 58%. EDV: 124 mL ESV: 52 mL LHR: 0.45 TID: 1.1 IMPRESSION: No evidence of stress induced ischemia.
--- NOTE | 2024-05-13 11:05 | TREADPHA ---
DX: CHEST PAIN Date of Study: 05/13/2024 Ht: 5' 11 " Wt: 259 lb 15.858 oz Consulting Physician: KEERTHI MEDICATIONS: TYLENOL WITH CODEINE, NORVASC, ASPIRIN, LIPITOR, BUSPAR, FLEXERIL, LOVENOX, TRICOR, GLUCAGEN, NOVOLIN R, MELATONIN, MOBIC, ROBAXIN, SINGULAIR, MORPHINE, ZOFRAN, PROTONIX, DELTASONE, LYRICA, ZOLOFT, ZANAFLEX, ULTRAM, AMBIEN HISTORY: HYPERTENSION, HYPERLIPIDEMIA, DIABETES MELLITUS PHYSICIAL EXAMINATION: RESTING B.P.: 110/56 RESTING H.R.: 73 RESTING EKG: SINUS RHYTHM PROTOCOL: PHARMACOLOGIC EXERCISE TIME: 3:30 B.P. AT PEAK STRESS: 97/36 IMPRESSION: LEXISCAN STRESS TEST PERFORMED ORDERED. CARDIOLITE INJECTED PER PROTOCOL (SEE NUCLEAR MEDICINE REPORT). NO ARRHYTHMIAS NOTED. NO SUPRAVENTRICULAR TACHYCARDIA, VENTRICULAR TACHYCARDIA NOTED. NO COMPLAINTS OF SHORTNESS OF BREATH. PATIENT STATES CURRENT CHEST PAIN. WORSE DURING PROCEDURE, CHEST PAIN SUBSIDED POST PROCEDURE.
--- NOTE | 2024-05-13 11:23 | P.PN ---
Subjective Date of Service: 05/13/24 Chief Complaint: Chest pain r/o, NSTEMI Subjective: No new changes, No C/O voiced, Tolerating diet, Ambulating, Improving Review of Systems 10-point ROS is otherwise unremarkable Physical Examination - Vital Signs Temperature: 97.9 F Blood Pressure: 131/81 Pulse: 77 Respirations: 20 Pulse Ox (%): 98 - Physical Exam General: Alert, In no apparent distress HEENT: Atraumatic, PERRLA, EOMI Neck: Supple, JVD not distended Respiratory: Clear to auscultation bilaterally, Normal air movement Cardiovascular: Regular rate/rhythm, Normal S1 S2 Gastrointestinal: Normal bowel sounds, No tenderness Musculoskeletal: No tenderness Integumentary: No rashes Neurological: Normal speech, Normal tone, Normal affect Lymphatics: No axilla or inguinal lymphadenopathy - Studies Medications List Reviewed: Yes Assessment And Plan - Current Problems (Diagnosis) (1) Chest pain Current Visit: Yes Status: Acute Plan: although atypical but patient got multiple risk factors for CAD with mild elevated cardiac enzymes Patient had a nuclear stress test that is negative No further cardiac work up needed. ASA 81 mg daily Lipitor 40 mg daily (2) HTN (hypertension) Current Visit: Yes Status: Acute Plan: resume and continue patient home medications. Cardiology will sign off, please call with any questions. (3) HLD (hyperlipidemia) Current Visit: Yes Status: Acute Plan: continue lipitor 40 mg daily
--- NOTE | 2024-05-13 13:04 | P.PN ---
Subjective Date of Service: 05/13/24 Chief Complaint: Chest pain r/o, NSTEMI Subjective: C/O voiced (Continues to have SOB and chest pain with exertion) Review of Systems 10-point ROS is otherwise unremarkable Respiratory: SOB with Excertion Cardiovascular: Chest Pain Gastrointestinal: Constipation Physical Examination - Vital Signs Temperature: 97.9 F Blood Pressure: 126/72 Pulse: 83 Respirations: 20 Pulse Ox (%): 93 - Physical Exam General: Alert, In no apparent distress HEENT: Atraumatic, PERRLA, EOMI Neck: Supple, JVD not distended Respiratory: Normal air movement, Diminished Cardiovascular: Regular rate/rhythm, Normal S1 S2 Capillary refill: <2 Seconds Gastrointestinal: Normal bowel sounds, No tenderness Musculoskeletal: No tenderness Integumentary: No rashes Neurological: Normal speech, Normal tone, Normal affect Lymphatics: No axilla or inguinal lymphadenopathy External genitalia: Deferred Rectal: Deferred - Studies Medications List Reviewed: Yes Assessment And Plan - Plan Chest pain rule out - EKG: No obvious ST segment changes - Troponin trended 53/66/77/55- Flat - Transthoracic echocardiogram with EF - Chest x-ray reviewed with: No acute pulmonary process identified - Stress test completed; negative - Cardiology consulted and signed off 05/13 - CTA ordered and completed; negative - Cardiac diet - Continue daily ASA/Statin - Symptom control with PRN acetaminophen and morphine, wean as tolerated - Continuous to monitor on tele Diabetes - NIDDM - Accu-check ACHS - Insulin sliding scale and Glargine - A1C ordered for AM GERD -IV protonix for now High Cholesterol Hypertension - Continue Amlodipine/Fenofibrate/atorvastatin Osteoarthritis - Patient reports multiple muscle relaxer use at home, held for now - Continue Lyrica, Tramadol, Flexeril, scheduled for now Anxiety -Continue Buspar/Zoloft Substance abuse -Vaping cessation education provided DVT Ppx: Lovenox Code Status: Full Code Discharge Plan: Home Plan to discharge in: 24 Hours - Code Status/Comfort Care Code Status Assessed: Yes (FULL CODE )
--- NOTE | 2024-05-13 13:22 | RAD REPORT ---
EXAMINATION: CTA CHEST PE CLINICAL INDICATION: Chest pain TECHNIQUE: 100 cc 370 Isovue administered intravenously. This examination was performed according to an angiographic protocol with 3D post-processing. This involves 3D reconstructions, MIPs, volume rendered images and/or shaded surface rendering. One or more of the following dose reduction techniqu es were used: Automated exposure control, adjustment of the mA and/or kV according to patient size, and/or iterative reconstruction. Unless otherwise specified, incidental findings do not require dedic ated imaging follow-up. [id number]. COMPARISON: 2023 FINDINGS: Suboptimal opacification of the pulmonary arteries. No gross central pulmonary embolus seen. An aortic aneurysm not noted. No pleural effusion. No pericardial effusion. Lungs are clear. Fatty liver IMPRESSION: No gross central pulmonary embolus seen
[2024-05-13] MEDS ORDERED: ALBUTEROL INHALER 200 PUFF/6.7 GM IH PRN (14:47)
[2024-05-13] MEDS: INSULIN GLARGINE 100 UNIT/ML SQ SCH (17:02)
[2024-05-13] MEDS: MONTELUKAST 10 MG TAB PO SCH (21:01)
[2024-05-13] MEDS: ATORVASTATIN 40 MG TAB PO SCH (21:01)
[2024-05-14 04:18] VITALS: TEMP 97.7
[2024-05-14 08:29] VITALS: BP 129/81
--- NOTE | 2024-05-14 10:33 | P.DS ---
Admission Date: 05/13/24 Discharge Date: 05/14/24 Disposition: ROUTINE DISCHARGE Discharge Condition: FAIR Reason for Admission: Chest pain r/o, NSTEMI Consultations: cardiology Procedures: CTA echo stress test Brief History of Present Illness: 53 year old male with Pmhx Arthritis; Diabetes - NIDDM; GERD; High Cholesterol; Hypertension; osteoarthritis, anxiety who presents to the ED with chest pain and SOB after finding his brother at home. Troponin from 53 to 75 trending up, EKG negative for ST changes, chest pain has continued through out the night in the ED and seems to be reproducible. He reports having GERD and is belching during examination. Hospital Course: admitted to floor cardiology consulted cta, cxr, echo, stress test done cardiology recommended asa, statin stop vaping discharged in stable condition Vital Signs/Physical Exam: Temp Pulse Resp BP Pulse Ox 97.7 F 80 16 129/81 95 05/14/24 08:00 05/14/24 08:26 05/14/24 08:00 05/14/24 08:26 05/14/24 08:00 General: Alert Respiratory: Clear to auscultation bilaterally, Normal air movement Cardiovascular: No edema, Normal pulses Gastrointestinal: Soft and benign, Non-distended Musculoskeletal: Other Integumentary: No rashes Laboratory Data at Discharge: WBC 5.10 thou/uL (4.3-10.9) 05/13/24 07:50 Hgb 13.8 g/dL (13.6-17.9) 05/13/24 07:50 Hct 38.9 % (39.6-49.0) L 05/13/24 07:50 Plt Count 258 thou/uL (152-406) 05/13/24 07:50 PT 11.9 SECONDS (10-13.0) 05/12/24 00:16 INR 1.05 05/12/24 00:16 Sodium 137 mEq/L (136-145) 05/13/24 07:50 Potassium 3.9 mEq/L (3.5-5.1) 05/13/24 07:50 BUN 9 mg/dL (7-18) 05/13/24 07:50 Creatinine 0.94 mg/dL (0.70-1.30) 05/13/24 07:50 Glucose 235 mg/dL (74-106) H 05/13/24 07:50 Phosphorus 3.7 mg/dL (2.5-4.9) 05/13/24 07:50 Magnesium 1.8 mg/dL (1.6-2.4) 05/13/24 07:50 Total Bilirubin 0.4 mg/dL (0.2-1.0) 05/12/24 00:16 AST 27 U/L (15-37) 05/12/24 00:16 ALT 56 U/L (16-61) 05/12/24 00:16 Alkaline Phosphatase 81 U/L (45-117) 05/12/24 00:16 Triglycerides 862 mg/dL (<150) H 05/13/24 07:50 Cholesterol 171 mg/dL (<200) 05/13/24 07:50 LDL Cholesterol Direct 64 mg/dL (100-129) L 05/13/24 07:50 HDL Cholesterol 28 mg/dL (40-60) L 05/13/24 07:50 Cholesterol/HDL Ratio 6.11 05/13/24 07:50 Home Medications: Atorvastatin Calcium [Lipitor] 40 mg PO BEDTIME 08/26/21 Cyclobenzaprine [Flexeril*] 10 mg PO TID PRN 08/26/21 Empagliflozin [Jardiance] 25 mg PO AC 08/26/21 Insulin Aspart [Novolog Flexpen] 10 units SQ TIDWM 08/26/21 Insulin Glargine,Hum.rec.anlog [Toujeo Solostar] 50 units SQ AC 08/26/21 Metformin HCl [Glucophage*] 1,000 mg PO BID 08/26/21 Montelukast [Singulair*] 10 mg PO BEDTIME 08/26/21 Pantoprazole [Protonix Tab*] 40 mg PO DAILY 08/26/21 Pregabalin [Lyrica*] 75 mg PO BID 08/26/21 Acetaminophen with Codeine [Acetaminophen-Cod #4 Tablet] 300 mg PO TID PRN 01/03/23 Amlodipine [Norvasc*] 5 mg PO DAILY 01/03/23 Fenofibrate [Tricor*] 145 mg PO DAILY 01/03/23 Sertraline [Zoloft*] 200 mg PO DAILY 01/03/23 Tramadol HCl [Ultram] 100 mg PO BID 01/03/23 Albuterol Sulfate [Proair Digihaler] 2 puff IH Q6HR PRN 05/29/23 Benzonatate [Tessalon Perle*] 100 mg PO TID 05/29/23 Buspirone HCl [Buspar] 10 mg PO TID 05/29/23 Codeine/APAP [Tylenol #3*] 1 tab PO Q6HP PRN 05/29/23 Daridorexant HCl [Quviviq] 25 mg PO BEDTIME 05/29/23 Famotidine 20 mg PO DAILY 05/29/23 Ketorolac [Toradol*] 10 mg PO Q8HR PRN 05/29/23 Meloxicam 7.5 mg PO DAILY 05/29/23 Ondansetron [Zofran (Odt)*] 4 mg PO Q6HR PRN 05/29/23 Tirzepatide [Mounjaro] 5 mg SQ EVERY 7TH DAY 05/29/23 Aspirin [Aspirin EC 81 MG] 81 mg PO DAILY #30 tab 05/14/24 New Medications: Aspirin [Aspirin EC 81 MG] 81 mg PO DAILY #30 tab Physician Discharge Instructions: followup with pcp take medications as prescribed followup with orthopedics Diet: ADA Activity: Ad gila Followup: NONE,NONE [Primary Care Provider] - Time spent managing pt's care (in minutes): 30
[2024-05-14 12:15] VITALS: O2SAT 95
== END 2024-05-14 11:52 | disposition home or self-care (01) | DRG 313 ==
LOC: ER 23:41 → ERHOLD 05-12 07:14 → 2ND 05-12 16:27 → OBSVTOIN 05-13 18:23
PROVIDERS: ADMIT Hospitalist; ATTEND Internal Medicine
DX: R07.89 Other chest pain (principal); I10 Essential (primary) hypertension; F41.9 Anxiety disorder, unspecified; E78.00 Pure hypercholesterolemia, unspecified; E11.9 Type 2 diabetes mellitus without complications; M19.90 Unspecified osteoarthritis, unspecified site; K21.9 Gastro-esophageal reflux disease without esophagitis; F17.290 Nicotine dependence, other tobacco product, uncomplicated; Z79.4 Long term (current) use of insulin; Z63.4 Disappearance and death of family member; Z79.84 Long term (current) use of oral hypoglycemic drugs; Z79.52 Long term (current) use of systemic steroids; Z79.899 Other long term (current) drug therapy; Z96.649 Presence of unspecified artificial hip joint
CPT/HCPCS: 36415; 71045; 71275; 78452; 80048; 80061; 80076; 82947; 83036; 83735; 83880; 84100; 84439; 84443; 84484; 85025; 85610; 93017; 93306; 96372; 99284; A9500; G0378; J1650; J1815; J2270; J2405; J2470; J2785; J7030; J7512; Q9967